=== PATIENT | male | born 1960 | race Caucasian/White ===

== ENCOUNTER 2019-09-24 10:32 | Inpatient (IN) ==
[2019-09-24 11:35] LABS: Appearance Urine Clear (Clear); Bilirubin Urine Negative (Negative); Blood Urine Negative (Negative); Color Urine Yellow; Glucose Urine UA Negative (Negative); Ketones Urine Negative (Negative); Leukocyte Esterase Urine Negative (Negative); Nitrite Urine Negative (Negative); Protein Urine Negative (Negative); Specific Gravity Urine 1.004 (1.000-1.030); Urobilinogen Urine Negative (Negative)
[2019-09-24 11:49] LABS: Amphetamines+Metham, Urine Neg (Neg); Barbiturates, Urine Neg (Neg); Benzodiazepine, Urine Neg (Neg); Cocaine, Urine Neg (Neg); MDMA (Ecstacy), Urine Neg (Neg); Methadone, Urine Neg (Neg); Opiate, Urine Neg (Neg); Phencyclidine, Urine Neg (Neg)
[2019-09-24 12:17] LABS: Basophils # (auto) 0.02 K/uL (0-0.2); Basophils % (auto) 0.4 %; Eosinophils # (auto) 0.07 K/uL (0-0.5); Eosinophils % (auto) 1.4 %; Hematocrit (blood only) 51.5 % (42-52); Immature Granulocytes # (auto) 0.01 K/uL (0.00-0.02); Immature Granulocytes % (auto) 0.2 %; Lymphocytes # (auto) 1.95 K/uL (1.2-3.4); Lymphocytes % (auto) 38.2 %; Mean Corpuscular Hemoglobin 33.5 pg (25-34); Mean Corpuscular Hgb Conc 36.9 g/dL (32-36); Mean Corpuscular Volume 90.7 fL (80-100); Mean Platelet Volume 10.2 fL (7.4-10.4); Monocytes % (auto) 7.8 %; Neutrophils # (auto) 2.65 K/uL (1.4-6.5); Platelet Count 200 K/uL (130-400); RDW Standard Deviation 39.8 fL (36.4-46.3); Red Blood Count 5.68 M/uL (4.7-6.1)
[2019-09-24 12:34] LABS: Albumin Level 4.3 gm/dl (3.4-5.0); Calcium 8.7 mg/dl (8.5-10.1); Creatinine Clr Calc Pharmacy 90.4 ml/min; Est GFR (African American) 94.6; Est GFR (Non-African American) 81.6; Magnesium 2.3 mg/dl (1.8-2.4); Potassium 3.3 mmol/L (3.5-5.1)
[2019-09-24 12:45] LABS: Acetaminophen < 2 ug/ml (10-30); Albumin Globulin Ratio 1.1 (0.9-2); Bilirubin,Total 0.8 mg/dl (0.2-1); Salicylate < 1.7 mg/dl (2.8-20); Thyroid Stimulating Hormone 1.1 uIu/ml (0.300-4.500); Total Protein 8.3 gm/dl (6.4-8.2)
[2019-09-24] MEDS ORDERED: ASPIRIN 81 MG CHEW PO STA (13:51)
[2019-09-24] MEDS ORDERED: POLYETHYLENE (MIRALAX) 17 GM PACK PO PRN (14:09)
[2019-09-24] MEDS ORDERED: ACETAMINOPHEN 325 MG TAB PO PRN (14:09)
[2019-09-24] MEDS ORDERED: ONDANSETRON INJ 2 MG/ML 2 ML VIAL IV PRN (14:09)
[2019-09-24] MEDS ORDERED: NITROGLYCERIN SL 0.4 MG/TAB TAB SL PRN (14:09)
--- NOTE | 2019-09-24 14:27 | History & Physical Report ---
Date of Service September 24, 2019 Assessment & Plan (1) Suicidal ideations: [address] with warrant, patient not allowed to leave facility. One to one obs with psych evaluation. Expressing active SI but no HI. (2) Elevated troponin: No chest pain but "malaise for several days" with lying around. Chao risk score is 1 for elevated troponin. Doubt NSTEMI but risk factors for CAD include active smoking, male sex. A1C screening for diabetes and lipid panel are pending. Outpatient record review reveals these have not been checked in the past. Echo, trend trop. Check CK with sedentary behavior as this may influence troponin. Add Lipitor and Metoprolol to ASA. Nitro/Morphine PRN. Consult cardiology for help with risk stratification. NPO pending next troponin value and clinical progress. (3) Alcohol intoxication: supportive care as needed. (4) Alcohol withdrawal: Some symptoms of withdrawal present now despite normal vitals, including a headache and anxiety with shakiness per patient. Gave ativan 2mg IV now in ER. Cont with CIWA. Gabapentin protocol also ordered, in addition to Banana bag, daily thiamine and daily folate. Heavy alcohol abuse. Would be helpful to assist patient with finding a support group to help him quit and stay sober at time of discharge. Strongly advised to avoid alcohol moving forward as this is bad for his health. (5) Depression: Plan per psych (6) Smoker: Has his can of snuff with him. Refuses to relinquish this. Hold on ordering any nicotine replacement at this time. (7) Hypokalemia: replace with KCL now and repeat K with Mg in am. (8) GERD (gastroesophageal reflux disease): Cont PPI while admitted. (9) DVT prophylaxis: Lovenox Full Code Dispo-to [facility], with transition to for inpatient psychiatric care with active suicidal ideations. DO Omaira Weaver Hospitalist History of Present Illness Chief Complaint: suicidal intentions Primary Care Provider: NO PCP 58 yo male smoker who abuses alcohol presents with suicidal ideations. He reports specifically feeling malaise in the past several days. He denies chest pain, shortness of breath at rest or with exertion, nausea, vomiting, blood per rectum, changes in stools, fevers, chills, respiratory symptoms or other issues. He reports drinking heavily for a long period of time, specifically quantifies 12 beers daily, last drink this morning. States he feels slightly shaky and has a generalized headaches ;reports that he feels some withdrawal symptoms. Denies homicidal ideations, denies having a weapon on his person. Nurse reports he and his stuff has been searched. Pt reports depression and used to take Zoloft but "just quit." He denies current treatment for depression, and denies any specific triggers. Actively states that "I mylene I'm having a heart attack and it will just take me quickly." Reports the plan this morning was to use his gun (reports he carries only one), but he decided to call the ER for help instead. Lives in a home with multiple nonfamily roommates. Reports tobacco snuff/chew-1 can per couple days. Also smokes cigarettes on occasion. Reports feeling embarrassed for his actions this morning. Allergies Allergy/AdvReac Type Severity Reaction Status Date / Time No Known Allergies Allergy Verified 07/13/18 15:03 Home Medications Home Medications Medication Instructions Recorded Confirmed Type omeprazole 20 mg PO DAILY 09/24/19 09/24/19 History Past Med/Surg History Medical History Depression ETOH abuse GERD (gastroesophageal reflux disease) Smoker Suicidal thoughts (Acute) Surgical History No history of previous surgery Family History Father , age 70 from [place] Coronary heart disease Social History Preferred Language: Ivorian Communication Ability: Effective Business Relationship Manager Required: No Beliefs That Will Affect Care: None marital status: Current Living Situation: Alone Feels Safe at Home: Yes Smoking Status: Current every day smoker Tobacco Type: cigarettes and smokeless tobacco ; Second Hand Exposure: No ; Hx Alcohol Use: Yes Alcohol type: beer Hx Substance Use: No Review of Systems Review of Systems: At least ten systems were reviewed and negative except as indicated in HPI above. Physical Exam Physical Exam: CONSTITUTIONAL: WNWD, vitals as above, generally well- appearing but appears fidgety EYES: EOMI bilaterally, pupils are equal bilaterally, normal conjunctivae, no scleral icterus ENT: MMM RESPIRATORY: clear to auscultation bilaterally, no crackles, rales or wheezes, normal respiratory effort CARDIOVASCULAR: regular rate and rhythm, S1 and 2 heard without murmurs, gallops or rubs, no JVD, no peripheral edema GASTROINTESTINAL: normal bowel sounds, soft, nontender, nondistended MUSCULOSKELETAL: strength 5/5 throughout, head is normocephalic and atraumatic, neck supple, normal palpation of chest wall without tenderness SKIN: warm and dry NEUROLOGIC: CN 2-12 grossly intact, normal cognition, normal speech, no gross focal deficits. Starting to look hypervigilant/anxious. Consistently moving his hips around like he cannot get comfortable. PSYCHIATRIC: alert cooperative and oriented to person, place and time. Tearful, expressing remorse of events this am. Results & Data Vital Signs (Past 12 Hours) Vital Signs Temp Pulse Pulse Resp BP BP Pulse Ox 09/24/19 12:53 80 16 130/64 94 09/24/19 10:39 37.0 C 83 16 119/96 98 Laboratory Results Short CBC 09/24/19 Range/Units 11:56 WBC 5.10 (4.8-10.8) K/uL Hgb 19.0 H (14.0-18.0) g/dL Hct 51.5 (42-52) % Plt Count 200 (130-400) K/uL BMP 09/24/19 11:56 Sodium 137 Potassium 3.3 L Chloride 103 Carbon Dioxide 25 BUN 12 Creatinine 1.01 Glucose 113 H Calcium 8.7 Cardiac Enzymes 09/24/19 Range/Units 11:56 Troponin I 0.116 H* (0-0.045) ng/ml Liver Function 09/24/19 Range/Units 11:56 Total Bilirubin 0.8 (0.2-1) mg/dl AST 26 (15-37) U/L ALT 40 (12-78) U/L Alkaline Phosphatase 60 (45-117) U/L Albumin 4.3 (3.4-5.0) gm/dl Urine 09/24/19 Range/Units 11:01 Urine Color Yellow Urine Appearance Clear (Clear) Urine pH 6.0 (4.5-7.5) Ur Specific [place] 1.004 (1.000-1.030) Urine Protein Negative (Negative) Urine Glucose (UA) Negative (Negative) Medications Administered ASA 324mg one in ER Code Status & VTE Plan VTE Prophylaxis Plan VTE Prophylaxis will be ordered: Yes
[2019-09-24] MEDS ORDERED: LORazepam 2 MG/4 ML VIAL IV STA (14:48)
[2019-09-24] MEDS ORDERED: LORazepam 2 MG/4 ML VIAL IV PRN (16:11)
[2019-09-24] MEDS ORDERED: LORazepam 1 MG TAB PO PRN (16:11)
[2019-09-24] MEDS ORDERED: LORazepam 3 MG/6 ML VIAL IV PRN (16:11)
[2019-09-24] MEDS ORDERED: ATIVAN IV ALCOHOL WITHDRAWL IV PRN (16:11)
[2019-09-24] MEDS ORDERED: LORazepam 1 MG/2 ML VIAL IV PRN (16:11)
[2019-09-24] MEDS ORDERED: GABAPENTIN 1200MG ALCOHOL WITHDRAWAL LOAD PO STA (16:11)
--- NOTE | 2019-09-24 16:11 | Emergency Department Note ---
Entered by Pat Dugan acting as a scribe for Lio Dee M.D. History of Present Illness General Chief complaint: Mental Health Evaluation Time Seen by Provider: 09/24/19 11:03 Source: patient History of Present Illness Onset (ago): day(s) 4 Location: head (depression) Severity: similar to prior episodes Pain Consistency: + other (worsening) Maximum Pain Intensity: 7 Quality: + other (depression) Exacerbated By: + other (family issues) Associated symptoms: + other (SI, depression, back pain) Treatments prior to arrival: none The patient is a 58 year old male presenting to the Emergency Department complaining of worsening depression starting 4 days ago. The patient reports that he has depression and that it has worsened in the past few days. He states that he wants to hurt himself and states that it would be best if he wasnt here. He explains that he has not spoken to his family for five years because of a falling out and that this is worsening his depression. He notes that he doesnt know how to fix the problems with his family and that this is upsetting him. He adds that he has been drinking alcohol for the past 4 days. The patient reports that he has a gun and thought about using it to kill himself which is why he came to the ED today. He states that he thinks he has a cold. He explains that his back hurts but that this is an ongoing problem. He notes that he has been a patient at the [facility] before. He adds that he doesnt have a therapist or counselor that he sees for his depression and doesnt take any psychiatric m edications. The patient reports that he uses smokeless tobacco but doesn't smoke cigarettes. Home Medications Home Medications Medication Instructions Recorded Confirmed Type omeprazole 20 mg PO DAILY 09/24/19 09/24/19 History Allergies Allergy/AdvReac Type Severity Reaction Status Date / Time No Known Allergies Allergy Verified 07/13/18 15:03 Past Med/Surg History Medical History Depression ETOH abuse GERD (gastroesophageal reflux disease) Smoker Suicidal thoughts (Acute) Surgical History No history of previous surgery Family History Father , age 70 from [place] Coronary heart disease Social History Preferred Language: Lithuanian Communication Ability: Effective Saloonkeeper Required: No Beliefs That Will Affect Care: None marital status: Current Living Situation: Alone Feels Safe at Home: Yes Smoking Status: Current every day smoker Tobacco Type: cigarettes and smokeless tobacco ; Second Hand Exposure: No ; Hx Alcohol Use: Yes Alcohol type: beer Hx Substance Use: No Review of Systems See HPI for pertinent positives & negatives. and A total of 10 systems reviewed and were otherwise negative Physical Exam Vital Signs Vital Signs - 24 hr 09/24/19 10:39 09/24/19 12:53 Temperature 37.0 C Temperature Source Oral Pulse Rate 83 Pulse Rate [Apical] 80 Pulse Rhythm Regular Pulse Strength Normal Respiratory Rate 16 16 Respiratory Effort / Characteristics Non-Labored Spontaneous Respiratory Depth Normal Respiratory Pattern Regular Blood Pressure 119/96 Blood Pressure [Left Arm] 130/64 Blood Pressure Mean 103 Blood Pressure Mean [Left Arm] 86 Blood Pressure Position Lying Pulse Oximetry 98 94 Oxygen Delivery Method Room Air Sepsis Recent Fever Within 48 Hours No Sepsis New/Unexplained Change in Mental Status No Sepsis Action Taken by Nursing No Action Required GENERAL: Patient is tearful, anxious. Smells of alcohol. Awake and alert. HENT: Normocephalic, atraumatic. EYES: Normal conjunctiva. Sclera non-icteric. NECK: Supple. No nuchal rigidity. RESPIRATORY: Clear to auscultation. No wheezes. Normal respiratory effort. CARDIAC: Normal rate. Normal rhythm. Extremities warm and well perfused. GI: Soft, non-distended. No tenderness to palpation. RECTAL: Deferred. MUSCULOSKELETAL: Atraumatic. Chest examination reveals no tenderness. LOWER EXTREMITIES: Calves are equal size bilaterally and non-tender. No edema NEURO: Normal sensorium. No sensory or motor deficits noted. No facial droop. PSYCH: Endorses SI. Denies HI. Tearful. SKIN: Warm and dry. No jaundice noted. Course Course 1106: The patient was evaluated in room A5, and a complete history and physical examination were performed. 1342: I discussed the case with Claudia Virgen PA-C. Dr. Rayo [facility] hospitalist will evaluated the patient for further management. 1245: I updated the patient at this time. Administered Medications Discontinued Medications Aspirin (Aspirin Chew) 324 mg PO NOW STA Stop: 09/24/19 13:52 Last Admin: 09/24/19 14:00 Dose: 324 mg Documented by: [id number] Lorazepam (Ativan) 2 mg in 4 mls @ 4 mls/min IV NOW STA Stop: 09/24/19 14:49 Last Admin: 09/24/19 15:07 Dose: 4 mls/min Documented by: [id number] Critical Care Time Critical Care Time: Yes Total Critical Care Time: 32 I have personally spent 32 minutes of critical care time in the direct management of this patient. This includes bedside care, interpretation of diagnostic studies, and testing, discussion with consultants, patient, and family members, and other required patient management activities. This 32 minutes is in excess of all separately billable procedures. Medical Decision Making Differential Diagnosis Differential diagnoses considered include mood disorder, infection, hypoglycemia, electrolyte abnormalities, cardiac sources, intracerebral event, toxicologic, neurologic, as well as others. Medical Records Attestation: I reviewed the patient's medical records. Home Medications Current Medication List: was personally reviewed by me Laboratory Data Attestation: I reviewed the patient's lab results. Result diagrams: 09/24/19 11:56 09/24/19 11:56 Lab Results 09/24/19 09/24/19 09/24/19 Range/Units 11:01 11:01 11:56 WBC 5.10 (4.8-10.8) K/uL RBC 5.68 (4.7-6.1) M/uL Hgb 19.0 H (14.0-18.0) g/dL Hct 51.5 (42-52) % MCV 90.7 (80-100) fL MCH 33.5 (25-34) pg MCHC 36.9 H (32-36) g/dL RDW Std Deviation 39.8 (36.4-46.3) fL RDW Coeff of Eloy 12.0 (11.5-14.5) % Plt Count 200 (130-400) K/uL MPV 10.2 (7.4-10.4) fL Immature Gran % (Auto) 0.2 % Neut % (Auto) 52.0 % Lymph % (Auto) 38.2 % Clare % (Auto) 7.8 % Eos % (Auto) 1.4 % Baso % (Auto) 0.4 % Immature Gran # (Auto) 0.01 (0.00-0.02) K/uL Neut # (Auto) 2.65 (1.4-6.5) K/uL Lymph # (Auto) 1.95 (1.2-3.4) K/uL Clare # (Auto) 0.40 (0.11-0.59) K/uL Eos # (Auto) 0.07 (0-0.5) K/uL Baso # (Auto) 0.02 (0-0.2) K/uL Sodium (136-145) mmol/L Potassium (3.5-5.1) mmol/L Chloride (98-107) mmol/L Carbon Dioxide (21-32) mmol/L Anion Gap (3-11) BUN (7-18) mg/dl Creatinine (0.6-1.4) mg/dl Est Cr Clr Drug Dosing ml/min Est GFR ( Amer) Est GFR (Non-Af Amer) BUN/Creatinine Ratio (10-20) Glucose (70-99) mg/dl Calcium (8.5-10.1) mg/dl Magnesium (1.8-2.4) mg/dl Total Bilirubin (0.2-1) mg/dl AST (15-37) U/L ALT (12-78) U/L Alkaline Phosphatase (45-117) U/L Total Creatine Kinase (39-308) U/L Troponin I (0-0.045) ng/ml Total Protein (6.4-8.2) gm/dl Albumin (3.4-5.0) gm/dl Globulin (2.5-4.0) gm/dl Albumin/Globulin Ratio (0.9-2) Lipase (73-393) U/L TSH (0.300-4.500) uIu/ml Urine Color Yellow Urine Appearance Clear (Clear) Urine pH 6.0 (4.5-7.5) Ur Specific [place] 1.004 (1.000-1.030) Urine Protein Negative (Negative) Urine Glucose (UA) Negative (Negative) Urine Ketones Negative (Negative) Urine Blood Negative (Negative) Urine Nitrite Negative (Negative) Urine Bilirubin Negative (Negative) Urine Urobilinogen Negative (Negative) Ur Leukocyte Esterase Negative (Negative) Salicylates (2.8-20) mg/dl Urine Opiates Screen Neg (Neg) Ur Methadone, Qual Neg (Neg) Acetaminophen (10-30) ug/ml Urine Barbiturates Neg (Neg) Ur Phencyclidine (PCP) Neg (Neg) U Amphetamin/Meth Scrn Neg (Neg) MDMA (Ecstasy) Screen Neg (Neg) U Benzodiazepines Scrn Neg (Neg) Ur Cocaine Metabolite Neg (Neg) U Marijuana (THC) Screen Neg (Neg) Ethyl Alcohol mg/dL (0-3) mg/dl 09/24/19 09/24/19 09/24/19 Range/Units 11:56 11:56 11:56 WBC (4.8-10.8) K/uL RBC (4.7-6.1) M/uL Hgb (14.0-18.0) g/dL Hct (42-52) % MCV (80-100) fL MCH (25-34) pg MCHC (32-36) g/dL RDW Std Deviation (36.4-46.3) fL RDW Coeff of Eloy (11.5-14.5) % Plt Count (130-400) K/uL MPV (7.4-10.4) fL Immature Gran % (Auto) % Neut % (Auto) % Lymph % (Auto) % Clare % (Auto) % Eos % (Auto) % Baso % (Auto) % Immature Gran # (Auto) (0.00-0.02) K/uL Neut # (Auto) (1.4-6.5) K/uL Lymph # (Auto) (1.2-3.4) K/uL Clare # (Auto) (0.11-0.59) K/uL Eos # (Auto) (0-0.5) K/uL Baso # (Auto) (0-0.2) K/uL Sodium 137 (136-145) mmol/L Potassium 3.3 L (3.5-5.1) mmol/L Chloride 103 (98-107) mmol/L Carbon Dioxide 25 (21-32) mmol/L Anion Gap 9.0 (3-11) BUN 12 (7-18) mg/dl Creatinine 1.01 (0.6-1.4) mg/dl Est Cr Clr Drug Dosing 90.4 ml/min Est GFR ( Amer) 94.6 Est GFR (Non-Af Amer) 81.6 BUN/Creatinine Ratio 12.0 (10-20) Glucose 113 H (70-99) mg/dl Calcium 8.7 (8.5-10.1) mg/dl Magnesium 2.3 (1.8-2.4) mg/dl Total Bilirubin 0.8 (0.2-1) mg/dl AST 26 (15-37) U/L ALT 40 (12-78) U/L Alkaline Phosphatase 60 (45-117) U/L Total Creatine Kinase (39-308) U/L Troponin I (0-0.045) ng/ml Total Protein 8.3 H (6.4-8.2) gm/dl Albumin 4.3 (3.4-5.0) gm/dl Globulin 4.0 (2.5-4.0) gm/dl Albumin/Globulin Ratio 1.1 (0.9-2) Lipase 226 (73-393) U/L TSH 1.100 (0.300-4.500) uIu/ml Urine Color Urine Appearance (Clear) Urine pH (4.5-7.5) Ur Specific [place] (1.000-1.030) Urine Protein (Negative) Urine Glucose (UA) (Negative) Urine Ketones (Negative) Urine Blood (Negative) Urine Nitrite (Negative) Urine Bilirubin (Negative) Urine Urobilinogen (Negative) Ur Leukocyte Esterase (Negative) Salicylates < 1.7 L (2.8-20) mg/dl Urine Opiates Screen (Neg) Ur Methadone, Qual (Neg) Acetaminophen < 2 L (10-30) ug/ml Urine Barbiturates (Neg) Ur Phencyclidine (PCP) (Neg) U Amphetamin/Meth Scrn (Neg) MDMA (Ecstasy) Screen (Neg) U Benzodiazepines Scrn (Neg) Ur Cocaine Metabolite (Neg) U Marijuana (THC) Screen (Neg) Ethyl Alcohol mg/dL 186.0 H (0-3) mg/dl 09/24/19 09/24/19 Range/Units 11:56 11:56 WBC (4.8-10.8) K/uL RBC (4.7-6.1) M/uL Hgb (14.0-18.0) g/dL Hct (42-52) % MCV (80-100) fL MCH (25-34) pg MCHC (32-36) g/dL RDW Std Deviation (36.4-46.3) fL RDW Coeff of Eloy (11.5-14.5) % Plt Count (130-400) K/uL MPV (7.4-10.4) fL Immature Gran % (Auto) % Neut % (Auto) % Lymph % (Auto) % Clare % (Auto) % Eos % (Auto) % Baso % (Auto) % Immature Gran # (Auto) (0.00-0.02) K/uL Neut # (Auto) (1.4-6.5) K/uL Lymph # (Auto) (1.2-3.4) K/uL Clare # (Auto) (0.11-0.59) K/uL Eos # (Auto) (0-0.5) K/uL Baso # (Auto) (0-0.2) K/uL Sodium (136-145) mmol/L Potassium (3.5-5.1) mmol/L Chloride (98-107) mmol/L Carbon Dioxide (21-32) mmol/L Anion Gap (3-11) BUN (7-18) mg/dl Creatinine (0.6-1.4) mg/dl Est Cr Clr Drug Dosing ml/min Est GFR ( Amer) Est GFR (Non-Af Amer) BUN/Creatinine Ratio (10-20) Glucose (70-99) mg/dl Calcium (8.5-10.1) mg/dl Magnesium (1.8-2.4) mg/dl Total Bilirubin (0.2-1) mg/dl AST (15-37) U/L ALT (12-78) U/L Alkaline Phosphatase (45-117) U/L Total Creatine Kinase 214 (39-308) U/L Troponin I 0.116 H* (0-0.045) ng/ml Total Protein (6.4-8.2) gm/dl Albumin (3.4-5.0) gm/dl Globulin (2.5-4.0) gm/dl Albumin/Globulin Ratio (0.9-2) Lipase (73-393) U/L TSH (0.300-4.500) uIu/ml Urine Color Urine Appearance (Clear) Urine pH (4.5-7.5) Ur Specific [place] (1.000-1.030) Urine Protein (Negative) Urine Glucose (UA) (Negative) Urine Ketones (Negative) Urine Blood (Negative) Urine Nitrite (Negative) Urine Bilirubin (Negative) Urine Urobilinogen (Negative) Ur Leukocyte Esterase (Negative) Salicylates (2.8-20) mg/dl Urine Opiates Screen (Neg) Ur Methadone, Qual (Neg) Acetaminophen (10-30) ug/ml Urine Barbiturates (Neg) Ur Phencyclidine (PCP) (Neg) U Amphetamin/Meth Scrn (Neg) MDMA (Ecstasy) Screen (Neg) U Benzodiazepines Scrn (Neg) Ur Cocaine Metabolite (Neg) U Marijuana (THC) Screen (Neg) Ethyl Alcohol mg/dL (0-3) mg/dl ECG Data Attestation: I personally reviewed and interpreted this ECG as follows: Indication: + toxicologic Rate (beats per minute): 78 Rhythm: + normal sinus ECG ST segments: no ST depression ECG Findings: + Other (Normal QTC.); no PVCs Blood Pressure Blood Pressure Findings: Elevated blood pressure Blood Pressure Disposition: further management by hospitalist JAVIER Joseph Patient is a 58-year-old gentleman presenting here with police for mental health evaluation. Evidently had increasing thoughts of suicidal tendencies and is quite tearful. Patient states he was thinking of using a gun and shooting himself in the head. Patient endorses drinking alcohol recently and has a history of alcoholism. Denies any HI. Complains of slight cough and baseline lower back pain. Benign abdomen. States he feels just generally unwell. Is here in a 302 warrant. States a history of some mental health issues in the past previously seen at the [facility]. Patient denies any trauma. Tearful but appears intoxicated upon his exam. Patient had basic medical clearance completed here with laboratory studies and EKG. Patient has a elevated alcohol level. EKG with some subtle changes but patient without acute complaint of chest pain. Again complained of some mild diffuse nonspecific fatigue and weak ness. Troponin was elevated. No priors noted. Concerned this could represent possible NSTEMI versus cardiomyopathy with alcohol history versus other pathology. Given an aspirin here. Will require medical admission for further cardiac evaluation. Still on a 302 require sitter at this point. Hospitalist advised. Patient in agreement. Impression & Plan Suicidal thoughts, Alcohol intoxication, Elevated troponin Discharge Plan Visit Data *Final* Discharge Date/Time: 09/24/19 14:53 Chief Complaint: Mental Health Evaluation ED Provider: Lio Dee Discharge Problem: Suicidal thoughts, Alcohol intoxication, Elevated troponin Patient Disposition: Admitted As Inpatient Discharge Instructions Interventions: ED Discharge Assessment Last Done: 09/24/19 14:53 Discharge Problem: Alcohol intoxication Qualifiers: Complication of substance-induced condition: with unspecified complication Qualified Code(s): F10.929 - Alcohol use, unspecified with intoxication, unspecified The scribe's documentation has been prepared under my direction and personally reviewed by me in its entirety. I confirm that the note above accurately reflects all work, treatment, procedures, and medical decision making performed by me.
--- NOTE | 2019-09-24 16:22 | XRay Report ---
XR chest 1V portable CLINICAL HISTORY: 58 years-old Male presenting with elevated troponin, alcohol intoxication. TECHNIQUE: Portable upright AP view of the chest was obtained. COMPARISON: None. FINDINGS: Cardiomediastinal silhouette normal. No focal opacity. No large effusion or pneumothorax. Multiple ol d posterior right rib fractures. Upper abdomen normal. IMPRESSION: 1. No acute cardiopulmonary disease. Electronically signed by: Stefano Cantu M.D. 09/24/2019 4:21 PM
[2019-09-24] MEDS ORDERED: GABAPENTIN 600 MG TAB PO ONE (16:45)
[2019-09-24] MEDS ORDERED: MULTI-VITAMIN INFUSION 10 ML, THIAMINE HCL 100 MG, FOLIC ACID 1 MG in SODIUM CHLORIDE 0... IV ONE (16:45)
[2019-09-24] MEDS ORDERED: POTASSIUM CHLORIDE 20 MEQ TABCR PO ONE (16:45)
[2019-09-24] MEDS: ATORVASTATIN 40 MG TAB PO SCH (17:43)
[2019-09-24] MEDS: ENOXAPARIN INJ 40 MG/0.4 ML SYR SQ SCH (20:57)
[2019-09-24] MEDS: METOPROLOL TARTRATE 25 MG TAB PO SCH (20:57)
[2019-09-24] MEDS: NICOTINE 21 MG/24 HR TDSY TD SCH (21:00)
[2019-09-25] MEDS: GABAPENTIN 600 MG TAB PO SCH ×4 (00:06→20:40)
[2019-09-25 01:30] LABS: Amphetamines+Metham, Urine Neg (Neg); Barbiturates, Urine Neg (Neg); Benzodiazepine, Urine Neg (Neg); Cocaine, Urine Neg (Neg); MDMA (Ecstacy), Urine Neg (Neg); Methadone, Urine Neg (Neg); Opiate, Urine Neg (Neg); Phencyclidine, Urine Neg (Neg)
[2019-09-25 07:13] LABS: Hematocrit (blood only) 49.5 % (42-52); Hemoglobin 17.7 g/dL (14.0-18.0); Mean Corpuscular Hemoglobin 33.5 pg (25-34); Mean Corpuscular Hgb Conc 35.8 g/dL (32-36); Mean Corpuscular Volume 93.8 fL (80-100); Mean Platelet Volume 10.4 fL (7.4-10.4); Platelet Count 187 K/uL (130-400); RDW Standard Deviation 40.7 fL (36.4-46.3); Red Blood Count 5.28 M/uL (4.7-6.1); White Blood Count 6.05 K/uL (4.8-10.8)
[2019-09-25] MEDS: FOLIC ACID 1 MG TAB PO SCH (08:24)
[2019-09-25] MEDS: ATORVASTATIN 40 MG TAB PO SCH (08:24)
[2019-09-25] MEDS: ASPIRIN 81 MG ECTAB PO SCH (08:24)
[2019-09-25] MEDS: PANTOprazole 40 MG TAB PO SCH (08:25)
[2019-09-25] MEDS: METOPROLOL TARTRATE 25 MG TAB PO SCH ×3 (08:25→20:41)
[2019-09-25] MEDS: NICOTINE 21 MG/24 HR TDSY TD SCH (08:25)
[2019-09-25] MEDS: THIAMINE HCL 100 MG TAB PO SCH (08:25)
[2019-09-25 08:31] LABS: Estimated Average Glucose 117 mg/dl; Hemoglobin A1C 5.7 % (4.5-5.6)
--- NOTE | 2019-09-25 08:33 | Hospitalist Progress Note ---
Date of Service September 25, 2019 Assessment & Plan (1) Suicidal ideations: -[address] with warrant, patient not allowed to leave facility. One to one obs with psych evaluation. Expressing active Suicidal Ideations as per admitting hospital physician -09/25/19 Patient seen and examined this AM. Eating the breakfast. appears comfortable and no acute distress. patient speaking well and answers questions appropriately. patient has 1 to 1 nursing director sitting on the chair next to him. Patient currently denies any pain to any part of the body. Breathing on room air. Patient's history is somewhat nonspecific in regards to symptoms prior to admission and could said that before he had hurt all over. No fevers recorded in the hospital but patient thought he was having some illness before coming to hospital. Patient does not appear to have any hand tremors or tongues fasiculations. He reports 10 to 12 beers at home which he lives with roommates. He reports he has had history of alcohol withdrawal before 1 year ago. He declines nicotine patch. Patient reports of depression when asked. He denies that he ever though of hurting other people. When asked whether he had suicidal ideations, patient reports he has thought about it but he has not thought of plans to do this -awaiting behavioral health/psychiatry evaluation (2) Depression: -awaiting behavioral health/psychiatry evaluation (3) Elevated troponin: -No chest pain but "malaise for several days" with lying around -creatinine kinase is normal as 214 on admission -troponins elevated on admission as 0.116, and mildly uptrending 0.126, 0.130, continue to trend -echocardiogram 09/24/19: with normal ejection fraction of 60 to 65% with no wall motion abnormality, there is moderate concentric left ventricular hypertrophy -continue hospital initiated atorvastatin and metoprolol -cardiology requested by admitting hospitalist (4) Alcohol intoxication: -concern for symptoms from alcohol intoxication on admission -supportive care as needed -currently no alcohol intoxication (5) Alcohol withdrawal: -as per initial hospitalist admission evaluation that patient had some symptoms of withdrawal present now despite normal vitals, including a headache and anxiety with shakiness per patient; patient given Ativan in the ER. also given thiamine and folic acid and banana bag -continue gabapentin alcohol withdrawal protocol, folic acid, thiamine, ativan prn (6) Smoker: Tobacco use -patient reports he uses tobacco generally as snuff -declines nicotine patch (7) Hypokalemia: -admission serum potassium 3.3, patient received potassium supplements -trend levels and replete to goal of 3.5 to 4 (8) GERD (gastroesophageal reflux disease): Cont PPI while admitted. (9) DVT prophylaxis: Lovenox Full Code Subjective Patient seen and examined this AM. Eating the breakfast. appears comfortable and no acute distress. patient speaking well and answers questions appropriately. patient has 1 to 1 nursing director sitting on the chair next to him. Patient currently denies any pain to any part of the body. Breathing on room air. Patient's history is somewhat nonspecific in regards to symptoms prior to admission and could said that before he had hurt all over. No fevers recorded in the hospital but patient thought he was having some illness before coming to hospital. Patient does not appear to have any hand tremors or tongues fasiculations. He reports 10 to 12 beers at home which he lives with roommates. He reports he has had history of alcohol withdrawal before 1 year ago. He declines nicotine patch. Patient reports of depression when asked. He denies that he ever though of hurting other people. When asked whether he had suicidal ideations, patient reports he has thought about it but he has not thought of plans to do this Review of Systems Review of Systems: All systems reviewed & are unremarkable except as noted in HPI & below Physical Exam Constitutional: WD/WN, vitals as above Eyes: PERRL, conjunctivae normal, anicteric sclerae EOM intact bilaterally ENMT: external ear and nose normal, oropharynx normal Neck: normal visual inspection Respiratory: normal respiratory effort, lungs clear to auscultation Cardiovascular: RRR, no murmur, no edema Gastrointestinal (Abdomen): normal bowel sounds, soft, nontender, no hepatosplenomegaly Musculoskeletal: Head/Neck/Chest: normocephalic and head atraumatic Neurologic: PERRL, EOMI, accommodation nl, no face palsy, no dysarthria CN's II-XI intact bilaterally Psychiatric: A+Ox3, euthymic affect Results & Data Vital Signs (Past 12 Hours) Vital Signs Temp Pulse Pulse Resp BP Pulse Ox 09/25/19 07:00 36.7 C 61 20 145/78 H 94 09/25/19 04:25 36.6 C 66 18 147/79 H 95 09/25/19 00:14 71 12/16/19 21:22 92 H
[2019-09-25 09:13] LABS: Albumin Level 4.1 gm/dl (3.4-5.0); BUN Creatinine Ratio 12.6 (10-20); Calcium 8.7 mg/dl (8.5-10.1); Creatinine Clr Calc Pharmacy 75.4 ml/min; Est GFR (Non-African American) 65.6; Magnesium 2.2 mg/dl (1.8-2.4); Potassium 3.6 mmol/L (3.5-5.1)
[2019-09-25 09:20] LABS: Albumin Globulin Ratio 1.1 (0.9-2); Bilirubin,Total 1.3 mg/dl (0.2-1); Globulin 3.6 gm/dl (2.5-4.0); Phosphorus 2.4 mg/dl (2.5-4.9); Total Protein 7.7 gm/dl (6.4-8.2); Troponin I 0.133 ng/ml (0-0.045)
[2019-09-25] MEDS ORDERED: LIDOCAINE 5% 1 PATCH TD SCH (10:15)
--- NOTE | 2019-09-25 10:51 | Cardiology Consultation ---
Date of Consultation September 25, 2019 Assessment & Plan (1) Troponin I above reference range: Troponin level was drawn in the emergency department despite the patient not voicing any cardiac complaints. This level does not represent an ischemic event. His echocardiogram shows normal wall motion and again he is without cardiac complaint. The patient himself voices his desire not to undergo any further cardiac testing at this time and I agree that no further testing is necessary. I would recommend follow-up with his primary care provider as an outpatient. No cardiac follow-up is recommended at this time. Obviously no medications will be started from my standpoint. (2) Suicidal thoughts: (3) ETOH abuse: History of Present Illness Reason for Consultation: Troponin level above reference range Requesting Physician: Dr. Rayo Attending Physician: Tez Espinal MD History of Present Illness It was my pleasure to see Mr. Davalos in consultation today September 25, 2019. He is a very pleasant 58-year-old gentleman who presented to [facility] emergency department on 09/24/2019 expressing significant depression along with suicidal ideation. Physically he was without complaint except for ongoing chronic back pain that had not changed in nature and some malaise that was associated with a depression. He specifically denied experiencing any chest pain, shortness of breath, palpitations, lightheadedness, dizziness or syncope. A troponin level was drawn in the emergency department despite his lack of cardiac symptoms and he came back elevated and cardiology was consulted. Currently states that he is feeling better. And continues to remain symptom- free from a cardiac standpoint. He denies ever being evaluated by cardiology before nor is he had any previous cardiac testing. He also voices his desire not to undergo any further testing. Allergies Allergy/AdvReac Type Severity Reaction Status Date / Time No Known Allergies Allergy Verified 07/13/18 15:03 Home Medications Home Medications Medication Instructions Recorded Confirmed Type omeprazole 20 mg PO DAILY 09/24/19 09/24/19 History Patient History Medical History Depression ETOH abuse GERD (gastroesophageal reflux disease) Smoker Suicidal thoughts (Acute) Surgical History No history of previous surgery Family History Father , age 70 from [place] Coronary heart disease Social History Preferred Language: Polish Communication Ability: Effective Operations Management Trainee Required: No Beliefs That Will Affect Care: None marital status: Current Living Situation: Other Current Living Situation Comment: Lives with several other men in same house Other Information That Helps Us Care for You: No Feels Safe at Home: Yes Safety Concerns: Feels Safe At This Time Smoking Status: Smoker, status unknown Hx Alcohol Use: Yes Alcohol type: beer Hx Substance Use: No Review of Systems Review of Systems: All systems reviewed & are unremarkable except as noted in HPI & below Physical Exam Physical Exam: Physical Exam: General: Awake, alert and oriented x 3. No acute distress. HEENT: Normocephalic, atraumatic. Pupils equal, round and reactive to light and accommodation. Extraocular muscles are intact. Anicteric sclera. Moist mucous membranes. Neck: No JVD. No bruit. Cardiovascular: Regular. No S-4. Normal S-1 and S-2. No S-3. No murmurs, rubs or gallops. Pulmonary: Clear to auscultation bilaterally. No rales, rhonchi, or wheezing. Abdomen: Bowel sounds x 4, soft. No rebound, guarding or tenderness. No organomegaly. Extremities: No clubbing, cyanosis or edema. +2 pedal pulses bilaterally. Skin: Warm and dry. Results & Data Vital Signs (Past 12 Hours) Vital Signs Temp Pulse Pulse Resp BP Pulse Ox 09/25/19 07:00 36.7 C 61 20 145/78 H 94 09/25/19 04:25 36.6 C 66 18 147/79 H 95 09/25/19 00:14 71 Laboratory Results Laboratory Results - last 24 hr 09/24/19 09/24/19 09/24/19 11:01 11:01 11:56 WBC 5.10 RBC 5.68 Hgb 19.0 H Hct 51.5 MCV 90.7 MCH 33.5 MCHC 36.9 H RDW Std Deviation 39.8 RDW Coeff of Eloy 12.0 Plt Count 200 MPV 10.2 Immature Gran % (Auto) 0.2 Neut % (Auto) 52.0 Lymph % (Auto) 38.2 [place] % (Auto) 7.8 Eos % (Auto) 1.4 Baso % (Auto) 0.4 Immature Gran # (Auto) 0.01 Neut # (Auto) 2.65 Lymph # (Auto) 1.95 [place] # (Auto) 0.40 Eos # (Auto) 0.07 Baso # (Auto) 0.02 Sodium Potassium Chloride Carbon Dioxide Anion Gap BUN Creatinine Est Cr Clr Drug Dosing Est GFR ( Amer) Est GFR (Non-Af Amer) BUN/Creatinine Ratio Glucose Estimat Average Glucose Hemoglobin A1c Calcium Phosphorus Magnesium Total Bilirubin AST ALT Alkaline Phosphatase Total Creatine Kinase Troponin I Total Protein Albumin Globulin Albumin/Globulin Ratio Triglycerides Cholesterol LDL Cholesterol, Calc VLDL Cholesterol, Calc HDL Cholesterol Cholesterol/HDL Ratio Lipase Folate TSH Urine Color Yellow Urine Appearance Clear Urine pH 6.0 Ur Specific [place] 1.004 Urine Protein Negative Urine Glucose (UA) Negative Urine Ketones Negative Urine Blood Negative Urine Nitrite Negative Urine Bilirubin Negative Urine Urobilinogen Negative Ur Leukocyte Esterase Negative Salicylates Urine Opiates Screen Neg Ur Methadone, Qual Neg Acetaminophen Urine Barbiturates Neg Ur Phencyclidine (PCP) Neg U Amphetamin/Meth Scrn Neg MDMA (Ecstasy) Screen Neg U Benzodiazepines Scrn Neg Ur Cocaine Metabolite Neg U Marijuana (THC) Screen Neg Ethyl Alcohol mg/dL 09/24/19 09/24/19 09/24/19 11:56 11:56 11:56 WBC RBC Hgb Hct MCV MCH MCHC RDW Std Deviation RDW Coeff of Eloy Plt Count MPV Immature Gran % (Auto) Neut % (Auto) Lymph % (Auto) [place] % (Auto) Eos % (Auto) Baso % (Auto) Immature Gran # (Auto) Neut # (Auto) Lymph # (Auto) [place] # (Auto) Eos # (Auto) Baso # (Auto) Sodium 137 Potassium 3.3 L Chloride 103 Carbon Dioxide 25 Anion Gap 9.0 BUN 12 Creatinine 1.01 Est Cr Clr Drug Dosing 90.4 Est GFR ( Amer) 94.6 Est GFR (Non-Af Amer) 81.6 BUN/Creatinine Ratio 12.0 Glucose 113 H Estimat Average Glucose Hemoglobin A1c Calcium 8.7 Phosphorus Magnesium 2.3 Total Bilirubin 0.8 AST 26 ALT 40 Alkaline Phosphatase 60 Total Creatine Kinase Troponin I Total Protein 8.3 H Albumin 4.3 Globulin 4.0 Albumin/Globulin Ratio 1.1 Triglycerides Cholesterol LDL Cholesterol, Calc VLDL Cholesterol, Calc HDL Cholesterol Cholesterol/HDL Ratio Lipase 226 Folate TSH 1.100 Urine Color Urine Appearance Urine pH Ur Specific [place] Urine Protein Urine Glucose (UA) Urine Ketones Urine Blood Urine Nitrite Urine Bilirubin Urine Urobilinogen Ur Leukocyte Esterase Salicylates < 1.7 L Urine Opiates Screen Ur Methadone, Qual Acetaminophen < 2 L Urine Barbiturates Ur Phencyclidine (PCP) U Amphetamin/Meth Scrn MDMA (Ecstasy) Screen U Benzodiazepines Scrn Ur Cocaine Metabolite U Marijuana (THC) Screen Ethyl Alcohol mg/dL 186.0 H 09/24/19 09/24/19 09/24/19 11:56 11:56 16:23 WBC RBC Hgb Hct MCV MCH MCHC RDW Std Deviation RDW Coeff of Eloy Plt Count MPV Immature Gran % (Auto) Neut % (Auto) Lymph % (Auto) [place] % (Auto) Eos % (Auto) Baso % (Auto) Immature Gran # (Auto) Neut # (Auto) Lymph # (Auto) [place] # (Auto) Eos # (Auto) Baso # (Auto) Sodium Potassium Chloride Carbon Dioxide Anion Gap BUN Creatinine Est Cr Clr Drug Dosing Est GFR ( Amer) Est GFR (Non-Af Amer) BUN/Creatinine Ratio Glucose Estimat Average Glucose Hemoglobin A1c Calcium Phosphorus Magnesium Total Bilirubin AST ALT Alkaline Phosphatase Total Creatine Kinase 214 Troponin I 0.116 H* Total Protein Albumin Globulin Albumin/Globulin Ratio Triglycerides Cholesterol LDL Cholesterol, Calc VLDL Cholesterol, Calc HDL Cholesterol Cholesterol/HDL Ratio Lipase Folate 9.52 TSH Urine Color Urine Appearance Urine pH Ur Specific [place] Urine Protein Urine Glucose (UA) Urine Ketones Urine Blood Urine Nitrite Urine Bilirubin Urine Urobilinogen Ur Leukocyte Esterase Salicylates Urine Opiates Screen Ur Methadone, Qual Acetaminophen Urine Barbiturates Ur Phencyclidine (PCP) U Amphetamin/Meth Scrn MDMA (Ecstasy) Screen U Benzodiazepines Scrn Ur Cocaine Metabolite U Marijuana (THC) Screen Ethyl Alcohol mg/dL 09/24/19 09/25/19 09/25/19 18:08 00:14 00:45 WBC RBC Hgb Hct MCV MCH MCHC RDW Std Deviation RDW Coeff of Eloy Plt Count MPV Immature Gran % (Auto) Neut % (Auto) Lymph % (Auto) [place] % (Auto) Eos % (Auto) Baso % (Auto) Immature Gran # (Auto) Neut # (Auto) Lymph # (Auto) [place] # (Auto) Eos # (Auto) Baso # (Auto) Sodium Potassium Chloride Carbon Dioxide Anion Gap BUN Creatinine Est Cr Clr Drug Dosing Est GFR ( Amer) Est GFR (Non-Af Amer) BUN/Creatinine Ratio Glucose Estimat Average Glucose Hemoglobin A1c Calcium Phosphorus Magnesium Total Bilirubin AST ALT Alkaline Phosphatase Total Creatine Kinase Troponin I 0.126 H* 0.130 H* Total Protein Albumin Globulin Albumin/Globulin Ratio Triglycerides Cholesterol LDL Cholesterol, Calc VLDL Cholesterol, Calc HDL Cholesterol Cholesterol/HDL Ratio Lipase Folate TSH Urine Color Urine Appearance Urine pH Ur Specific [place] Urine Protein Urine Glucose (UA) Urine Ketones Urine Blood Urine Nitrite Urine Bilirubin Urine Urobilinogen Ur Leukocyte Esterase Salicylates Urine Opiates Screen Neg Ur Methadone, Qual Neg Acetaminophen Urine Barbiturates Neg Ur Phencyclidine (PCP) Neg U Amphetamin/Meth Scrn Neg MDMA (Ecstasy) Screen Neg U Benzodiazepines Scrn Neg Ur Cocaine Metabolite Neg U Marijuana (THC) Screen Neg Ethyl Alcohol mg/dL 09/25/19 09/25/19 09/25/19 06:26 06:26 06:26 WBC 6.05 RBC 5.28 Hgb 17.7 Hct 49.5 MCV 93.8 MCH 33.5 MCHC 35.8 RDW Std Deviation 40.7 RDW Coeff of Eloy 12.0 Plt Count 187 MPV 10.4 Immature Gran % (Auto) Neut % (Auto) Lymph % (Auto) [place] % (Auto) Eos % (Auto) Baso % (Auto) Immature Gran # (Auto) Neut # (Auto) Lymph # (Auto) [place] # (Auto) Eos # (Auto) Baso # (Auto) Sodium Cancelled Potassium Cancelled Chloride Cancelled Carbon Dioxide Cancelled Anion Gap Cancelled BUN Cancelled Creatinine Cancelled Est Cr Clr Drug Dosing Cancelled Est GFR ( Amer) Cancelled Est GFR (Non-Af Amer) Cancelled BUN/Creatinine Ratio Cancelled Glucose Cancelled Estimat Average Glucose 117 Hemoglobin A1c 5.7 H Calcium Cancelled Phosphorus Magnesium Cancelled Total Bilirubin AST ALT Alkaline Phosphatase Total Creatine Kinase Troponin I Total Protein Albumin Globulin Albumin/Globulin Ratio Triglycerides Cancelled Cholesterol Cancelled LDL Cholesterol, Calc Cancelled VLDL Cholesterol, Calc Cancelled HDL Cholesterol Cancelled Cholesterol/HDL Ratio Cancelled Lipase Folate TSH Urine Color Urine Appearance Urine pH Ur Specific [place] Urine Protein Urine Glucose (UA) Urine Ketones Urine Blood Urine Nitrite Urine Bilirubin Urine Urobilinogen Ur Leukocyte Esterase Salicylates Urine Opiates Screen Ur Methadone, Qual Acetaminophen Urine Barbiturates Ur Phencyclidine (PCP) U Amphetamin/Meth Scrn MDMA (Ecstasy) Screen U Benzodiazepines Scrn Ur Cocaine Metabolite U Marijuana (THC) Screen Ethyl Alcohol mg/dL 09/25/19 08:39 WBC RBC Hgb Hct MCV MCH MCHC RDW Std Deviation RDW Coeff of Eloy Plt Count MPV Immature Gran % (Auto) Neut % (Auto) Lymph % (Auto) [place] % (Auto) Eos % (Auto) Baso % (Auto) Immature Gran # (Auto) Neut # (Auto) Lymph # (Auto) [place] # (Auto) Eos # (Auto) Baso # (Auto) Sodium 138 Potassium 3.6 Chloride 105 Carbon Dioxide 27 Anion Gap 7.0 BUN 15 Creatinine 1.21 Est Cr Clr Drug Dosing 75.4 Est GFR ( Amer) 76.0 Est GFR (Non-Af Amer) 65.6 BUN/Creatinine Ratio 12.6 Glucose 150 H Estimat Average Glucose Hemoglobin A1c Calcium 8.7 Phosphorus 2.4 L Magnesium 2.2 Total Bilirubin 1.3 H D AST 25 ALT 37 Alkaline Phosphatase 63 Total Creatine Kinase Troponin I 0.133 H* Total Protein 7.7 Albumin 4.1 Globulin 3.6 Albumin/Globulin Ratio 1.1 Triglycerides 497 H Cholesterol 244 H LDL Cholesterol, Calc VLDL Cholesterol, Calc HDL Cholesterol 35 Cholesterol/HDL Ratio 7 Lipase Folate TSH Urine Color Urine Appearance Urine pH Ur Specific [place] Urine Protein Urine Glucose (UA) Urine Ketones Urine Blood Urine Nitrite Urine Bilirubin Urine Urobilinogen Ur Leukocyte Esterase Salicylates Urine Opiates Screen Ur Methadone, Qual Acetaminophen Urine Barbiturates Ur Phencyclidine (PCP) U Amphetamin/Meth Scrn MDMA (Ecstasy) Screen U Benzodiazepines Scrn Ur Cocaine Metabolite U Marijuana (THC) Screen Ethyl Alcohol mg/dL Medications Administered Current Inpatient Medications Acetaminophen (Tylenol) 650 mg PO Q4H PRN PRN Reason: Pain or Fever Stop: 10/24/19 14:08 Aspir[facility]) [facility] [place] Stop: 10/25/19 08:59 Last Admin: 09/25/19 08:24 Dose: 81 mg Documented by: Atorvastatin Calcium (Lipitor) [facility] [place] Stop: 10/24/19 16:44 Last Admin: 09/25/19 08:24 Dose: 80 mg Documented by: Enoxaparin Sodium (Lovenox) 40 mg SQ HS [facility] Stop: 10/24/19 20:59 Last Admin: 09/24/19 20:57 Dose: 40 mg Documented by: Folic Acid (Folvite) 1 mg PO QAM [facility] Stop: 10/25/19 08:59 Last Admin: 09/25/19 08:24 Dose: 1 mg Documented by: Gabapentin (Neurontin) 600 mg PO Q8H [facility] Stop: 09/26/19 06:01 Gabapentin (Neurontin) 600 mg PO Q12H [facility] Stop: 09/27/19 06:01 Gabapentin (Neurontin) 600 mg PO Q24H [facility] Stop: 09/28/19 06:01 Lorazepam (Ativan) 1 mg in 2 mls @ 2 mls/min IV UD PRN; Protocol PRN Reason: EtOH Withdrawl AWSS Score 6,7 Stop: 10/24/19 16:10 Lorazepam (Ativan) 2 mg in 4 mls @ 4 mls/min IV UD PRN; Protocol PRN Reason: EtOH Withdrawl AWSS Score 8,9 Stop: 10/24/19 16:10 Lorazepam (Ativan) 3 mg in 6 mls @ 4 mls/min IV ONCE PRN; Protocol PRN Reason: EtOH Withdrawl AWSS Score >=10 Stop: 10/24/19 16:10 Lidocaine (Lidoderm 5%) 1 patch TD [facility] Stop: 10/25/19 10:14 Metoprolol Tartrate (Lopressor) 25 mg PO TID [facility] Stop: 10/24/19 20:59 Last Admin: 09/25/19 08:25 Dose: 25 mg Documented by: Miscellaneous (Remove Nicoderm Patch) 1 ea N/A DAILY@0859 [facility] Stop: 10/25/19 08:58 Last Admin: 09/25/19 08:26 Dose: Not Given Documented by: Miscellaneous (Remove Lidoderm Patch) 1 ea N/A DAILY@2100 [facility] Stop: 10/25/19 20:59 Nicotine (Nicoderm Cq) 21 mg TD QAM [facility] Stop: 10/24/19 19:14 Last Admin: 09/25/19 08:25 Dose: Not Given Documented by: Nitroglycerin (Nitrostat) 0.4 mg SL UD PRN PRN Reason: Chest Pain Stop: 10/24/19 14:08 Ondansetron HCl (Zofran) 4 mg IV Q6H PRN PRN Reason: Nausea Stop: 10/24/19 14:08 Pantoprazole Sodium (Protonix) 40 mg PO DAILY [facility]; Protocol Stop: 10/25/19 08:59 Last Admin: 09/25/19 08:25 Dose: 40 mg Documented by: Polyethylene Glycol (Miralax Powder Packet) 17 gm PO DAILY PRN PRN Reason: Constipation Stop: 10/24/19 14:08 Thiamine HCl (Vitamin B-1) 100 mg PO QAM [facility] Stop: 10/25/19 08:59 Last Admin: 09/25/19 08:25 Dose: 100 mg Documented by:
--- NOTE | 2019-09-25 11:07 | Psychiatric Consultation ---
Date of Consultation September 25, 2019 Impression / Recommendations Impression 58-year-old male admitted medically on 09/24/19 after presenting to the ED via police for physical and mental health concerns. Pt had reported verbalized feeling physically unwell, but also thoughts end his life by shooting himself. Upon ED work-up, it was found that patient's troponin was elevated and further cardiac work-up was pursued. Psychiatric consultation was requested to evaluate patient for suicidal statements with a specific plan. Although patient is denying suicidal ideation and disputes reports made in prior documentation, the discrepancy between patient's reports and numerous instances of concerning documentation is highly concerning. What increases concern, is the fact that patient is unwilling to engage in alternative recommended treatment. He is refusing inpatient drug and alcohol rehabilitation, outpatient substance abuse treatment, referrals for therapy, and consideration of medications to assist with mood and anxiety. Patient is unable to verbalize supports that could verify he is safe for discharge, and seemingly is not able to understand that nothing will have been different from his initial presentation if he is discharged home without additional services. Also of concern, is the fact that patient has a rifle in his home which he is not allowing anyone to secure. Based on concerning statements documented in 302 petitioning statement as well as ED psychiatric case management notes, we are upholding recommendation the patient be referred for inpatient psychiatric treatment after he is medically cleared. Patient is on a 302 box B warrant at this time, and should not be permitted to leave the hospital AMA. At time of medical clearance, we will pursue commitment status and determine if a voluntary or involuntary psychiatric admission would be pursued. At this time, patient is declining need for inpatient psychiatric treatment, and it is quite possible a 302 commitment would be upheld. Would suggest ongoing medical treatment in the interim for possible alcohol withdrawal symptoms. Patient is at high risk for withdrawal based on his reports of drinking alcohol on a daily basis, by his reports up to 15 beers a day. We will continue to follow along with patient's case, encouraging primary team to reach out to our service with any additional questions or concerns. We appreciate the opportunity to participate in the care of this patient. Dr. Zulema Rodriges was directly involved in review and discussion of the patient's case and participated in medical decision making regarding treatment recommendations. Risk Factors Assessment Do You Have Access To A Gun?: Yes Psych History Identifying Data 58-year-old male admitted medically on 09/24/19 after presenting to the ED via police for a combination of physical and mental health complaints. It was reported that the patient had called the ED reporting suicidal ideation and thoughts to harm himself. He presented to the ED on a 302 Box B warrant, but was admitted medically due to work-up showing elevated troponin. Psychiatric consultation was requested to evaluate patient for suicidal ideation with specific plan. Chief Complaint "It's just, I was so sick for like a full three or four days. I don't know, it just was not getting better. I was probably drinking way to much too." History of Present Illness Shadi Davalos is a 58-year-old male admitted medically on 09/24/2019 after presenting to the ED via police transport. Patient had reportedly called the emergency department, inquiring if he was eligible for treatment even without insurance. Patient reportedly verbalized thoughts to harm himself, and admitted to having a loaded gun at his residence. Patient was ultimately willing to cooperate with ED psychiatric case management's to arrange a wellness check, and patient was brought to the hospital for mental health evaluation. During ED work-up, patient's troponin was found to be elevated and inpatient medical admission for further evaluation was pursued. Psychiatric consultation was requested to evaluate patient for suicidal ideation with specific plan. Pt was brought to the ED on a 302 Box B warrant, with petitioning statement completed by officer Jaclyn Loredo, it reads: "Shadi Davalos called [facility] stating his intent to commit suicide. I arrived and found Israeli intoxicated and crying. Israeli stated to me that he had a loaded 22 rifle. Israeli said he had considered putting the barrel to the side of his head and pulling the trigger. Israeli stated several times that he wished he had the courage to end it. Israeli claimed he has been drinking since . Israeli has had no contact with his family in approx. 5 years." Patient's case was reviewed during morning report with supervising psychiatrist and psychiatric nurse liaison. Patient was cooperative with psychiatric evaluation. Patient's reports of the situation are rather different, he states that he had been physically ill for about 3 to 4 days, and was overwhelmed with concern for physical symptoms. He reports realization that ongoing alcohol use likely did not help his physical presentation. He informs this provider that he "started getting goofy feelings and called up here [hospital/ED]. I guess I implied I did not care if I was around anymore." Patient does verify in a roundabout way that "goofy feelings" does not imply apathy regarding continuing to live. He states "I guess sometimes I have those thoughts, like it is just as easy to not be around, or I just do not care." The patient does admit to bertin goldman "depressing things for sure" over the last 5 to 6 years. 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 Patient states that he has been in the past, and has several children to 2 prior marriages. He denies contact with any family members at this time. Contradictory to reports patient apparently made to police and ED psychiatric leather case finisher, the patient informs this provider "I did not really dwell on it, I am never going to do that. I have known people who have killed themselves, it is not what I want." When asked questions in order to determine if safety planning would be appropriate, the patient is unable to verbalize any supports that could be contacted to verify limited safety concerns. When asked about coping strategies, the patient states that he is mostly independent and isolative. He does state that he would consider going to tenriism and exercising. Patient was informed of recommendation for inpatient drug and alcohol rehabilitation, as he reports continued use of excessive amounts of alcohol "7 days a week." Patient states that he is not interested in rehab referrals, and is not willing to pursue outpatient drug and alcohol treatment either. Patient also declines recommendation for outpatient therapy, and is not willing to consider psychiatric medications to target worsening anxiety and depression. Patient contradicts himself on several occasions, initially reporting increase in depression and anxiety, then later stating that things are "fine" and he does not require any assistance from our service. Patient does state that he had previously been prescribed sertraline, which was rather helpful when he was taking it. Again, he is declining to resume the medication or consider alternative options. The patient does report decreased energy and motivation over the past year. He verbalizes apathy on several occasions, stating "I just do not care." Patient does report history of treatment for alcohol abuse. He believes he has been to rehab 8 or 9 times, most recently in 09/2018 at [facility]. The patient states on most occasions he finishes the program, "I get the certificate and then throw it in the trash." The patient believes that his alcohol habits have changed, and reports feeling comfortable with the amount he consumes. Patient states "I drink because I like beer, not because I have a problem anymore." The patient does admit to consuming 12-15 beers on a day in which he is not working, and at least 4-5 beers after work. He states that his first drink is generally about 6 hours after he awakes at 4 AM, putting his first drink around 10:00 in the morning. 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 Patient did verbalize consideration to attend outpatient AA/recovery groups, as they are "free." Patient was informed that the [facility] service unit may be able to offer with substance abuse treatment options, and even cover some of the cost. Despite this, patient is not interested in considering treatment. Patient does not feel that inpatient psychiatric treatment will be helpful, but is also resistant to any alternative treatment options recommended. When asked what would be different after discharge compared to his initial admission, patient is unable to clearly answer this question. Patient does deny active suicidal ideation at this time, but seems unable to understand the level of concern and this provider has about his inability to participate with safety planning. He denies any other needs from our service at this time. Patient was informed that inpatient psychiatric treatment may be recommended, and that he is on a 302 warrant at this time. Past Psychiatric History Previous Psych History: Patient reports a history of depression, which was previously treated with sertraline. Patient reports benefit when taking the medication several years ago. He denies specific symptoms of depression or anxiety, but does admit to intermittent stressors that become overwhelming. Patient does admit to occasional suicidal ideation, though is denies to this provider or plan to act on these thoughts. He does report inpatient psychiatric treatment at the [facility] several years ago. He denies prior suicide attempts. Do You Have Access To A Gun?: Yes Allergies Allergy/AdvReac Type Severity Reaction Status Date / Time No Known Allergies Allergy Verified 07/13/18 15:03 Home Medications Home Medications Medication Instructions Recorded Confirmed Type omeprazole 20 mg PO DAILY 09/24/19 09/24/19 History Family History Patient denies significant family history of mental health conditions. Substance Abuse History Patient admits to consuming smokeless tobacco (one can lasts two days), and 4 to 5 cigarettes daily. He verbalizes most recent alcohol use on a daily basis, between 5 and 15 beers depending on his work schedule. At his most significant use, patient states that he would consume "a 30 pack" a day in addition to other drinks containing liquor. Patient reports 8-9 inpatient drug and alcohol rehabilitation stays. Most recently he attended a program at [facility] in 09/2018. Patient denies use of illicit substances. 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 Patient History Medical History Depression ETOH abuse GERD (gastroesophageal reflux disease) Smoker Suicidal thoughts (Acute) Surgical History No history of previous surgery Family History Father , age 70 from [place] Coronary heart disease Social History Preferred Language: Israeli Communication Ability: Effective Gelatin Plant Supervisor Required: No Beliefs That Will Affect Care: None marital status: Current Living Situation: Other Current Living Situation Comment: Lives with several other men in same house Other Information That Helps Us Care for You: No Feels Safe at Home: Yes Safety Concerns: Feels Safe At This Time Smoking Status: Smoker, status unknown Hx Alcohol Use: Yes Alcohol type: beer Hx Substance Use: No Physical Exam Psychiatric: Orientation: alert, oriented x 3 and cooperative (Superficially) Apperance: appropriately dressed (For setting/situation, wearing paper scrubs), + disheveled and appeared stated age Overweight appearing male, seated in no acute distress. Patient is appropriately dressed in paper scrubs, given suicide precaution orders. He appears unshaven, with hair being disheveled. Grooming appears poor, though he is not malodorous. Eye Contact: good eye contact Motor Behavior: steady gait and station and + tremor Speech: normal rate/rhythm/volume of speech Affect: + blunted affect and mood congruent with affect Mood: + depressed mood and + anxious mood Reports of mood are somewhat contradictory. Patient verbalizes both anxiety and depression, but then states he has no mental health concerns that would require our ongoing involvement. Thought Process: goal directed thought process, clear/coherent thought process and thought association intact Thought Content: reality based without delusions; no hopelessness and no worthlessness Suicidal Thoughts: denies suicidal thoughts and denies suicidal intent Does admit to passive SI prior to hospital admission, denies active suicidal ideation at this time Homicidal Thoughts: denies homicidal thoughts Hallucinations: no auditory hallucinations and no visual hallucinations Cognition: attention grossly intact and language grossly intact Insight: + limited insight Judgement: + limited judgement Vital Signs (Past 24 Hours): Last Vital Signs Temp 36.7 C 09/25/19 07:00 Pulse 61 09/25/19 07:00 Resp 20 09/25/19 07:00 BP 145/78 H 09/25/19 07:00 Pulse Ox 94 09/25/19 07:00 Review of Systems Constitutional: denied Cardiovascular: denied Respiratory: denied Gastrointestinal: denied Neurological: denied Psychiatric: denies symptoms other than stated above Total of at least 10 systems reviewed, pertinent positives as above and in HPI. Results & Data Medications Administered Aspirin (Ecotrin Ectab) 81 mg PO [facility] Stop: 10/25/19 08:59 Last Admin: 09/25/19 08:24 Dose: 81 mg Documented by: [id number] Atorvastatin Calcium (Lipitor) 80 mg PO [facility] Stop: 10/24/19 16:44 Last Admin: 09/25/19 08:24 Dose: 80 mg Documented by: [id number] Admin: 09/24/19 17:43 Dose: 80 mg Documented by: [id number] Enoxaparin Sodium (Lovenox) 40 mg SQ [facility] Stop: 10/24/19 20:59 Last Admin: 09/24/19 20:57 Dose: 40 mg Documented by: [id number] Folic Acid (Folvite) 1 mg PO [facility] Stop: 10/25/19 08:59 Last Admin: 09/25/19 08:24 Dose: 1 mg Documented by: [id number] Lidocaine (Lidoderm 5%) 1 patch TD [facility] Stop: 10/25/19 10:14 Last Admin: 09/25/19 10:48 Dose: 1 patch Documented by: [id number] Metoprolol Tartrate (Lopressor) 25 mg PO TID [facility] Stop: 10/24/19 20:59 Last Admin: 09/25/19 08:25 Dose: 25 mg Documented by: [id number] Admin: 09/24/19 20:57 Dose: 25 mg Documented by: [id number] Miscellaneous (Remove Nicoderm Patch) 1 ea N/A [id number] [facility] Stop: 10/25/19 08:58 Last Admin: 09/25/19 08:26 Dose: Not Given Documented by: [id number] Nicotine (Nicoderm Cq) 21 mg TD [facility] Stop: 10/24/19 19:14 Last Admin: 09/25/19 08:25 Dose: Not Given Documented by: [id number] Admin: 09/24/19 21:00 Dose: Not Given Documented by: [id number] Pantoprazole Sodium (Protonix) 40 mg PO DAILY [facility]; Protocol Stop: 10/25/19 08:59 Last Admin: 09/25/19 08:25 Dose: 40 mg Documented by: [id number] Thiamine HCl (Vitamin B-1) 100 mg PO [facility] Stop: 10/25/19 08:59 Last Admin: 09/25/19 08:25 Dose: 100 mg Documented by: [id number] Coding Level of Care Code 44639 [facility] Intl Hosp Care Lvl 3
[2019-09-25] MEDS: ENOXAPARIN INJ 40 MG/0.4 ML SYR SQ SCH (20:41)
[2019-09-26] MEDS: GABAPENTIN 600 MG TAB PO SCH (06:31)
[2019-09-26] MEDS: FOLIC ACID 1 MG TAB PO SCH (07:58)
[2019-09-26] MEDS: ATORVASTATIN 40 MG TAB PO SCH (07:58)
[2019-09-26] MEDS: THIAMINE HCL 100 MG TAB PO SCH (07:58)
[2019-09-26] MEDS: METOPROLOL TARTRATE 25 MG TAB PO SCH (07:58)
[2019-09-26] MEDS: ASPIRIN 81 MG ECTAB PO SCH (07:58)
[2019-09-26] MEDS: PANTOprazole 40 MG TAB PO SCH (07:58)
[2019-09-26] MEDS: NICOTINE 21 MG/24 HR TDSY TD SCH (08:00)
[2019-09-26] MEDS ORDERED: LIDOCAINE 5% 1 PATCH TD SCH (09:00)
--- NOTE | 2019-09-26 09:40 | Discharge Summary ---
Date of Service September 26, 2019 Admission HPI Per Admitting Provider 58 yo male smoker who abuses alcohol presents with suicidal ideations. He reports specifically feeling malaise in the past several days. He denies chest pain, shortness of breath at rest or with exertion, nausea, vomiting, blood per rectum, changes in stools, fevers, chills, respiratory symptoms or other issues. He reports drinking heavily for a long period of time, specifically quantifies 12 beers daily, last drink this morning. States he feels slightly shaky and has a generalized headaches ;reports that he feels some withdrawal symptoms. Denies homicidal ideations, denies having a weapon on his person. Nurse reports he and his stuff has been searched. Pt reports depression and used to take Zoloft but "just quit." He denies current treatment for depression, and denies any specific triggers. Actively states that "I mylene I'm having a heart attack and it will just take me quickly." Reports the plan this morning was to use his gun (reports he carries only one), but he decided to call the ER for help instead. Lives in a home with multiple nonfamily roommates. Reports tobacco snuff/chew-1 can per couple days. Also smokes cigarettes on occasion. Reports feeling embarrassed for his actions this morning. Admission Exam Per Admitting Provider CONSTITUTIONAL: WNWD, vitals as above, generally well-appearing but appears fidgety EYES: EOMI bilaterally, pupils are equal bilaterally, normal conjunctivae, no scleral icterus ENT: MMM RESPIRATORY: clear to auscultation bilaterally, no crackles, rales or wheezes, normal respiratory effort CARDIOVASCULAR: regular rate and rhythm, S1 and 2 heard without murmurs, gallops or rubs, no JVD, no peripheral edema GASTROINTESTINAL: normal bowel sounds, soft, nontender, nondistended MUSCULOSKELETAL: strength 5/5 throughout, head is normocephalic and atraumatic, neck supple, normal palpation of chest wall without tenderness SKIN: warm and dry NEUROLOGIC: CN 2-12 grossly intact, normal cognition, normal speech, no gross focal deficits. Starting to look hypervigilant/anxious. Consistently moving his hips around like he cannot get comfortable. PSYCHIATRIC: alert cooperative and oriented to person, place and time. Tearful, expressing remorse of events this am. Principal Diagnosis suicidal ideations alcohol intoxication and withdrawal smoker Discharge Exam CONSTITUTIONAL: WNWD, vitals as above, generally well-appearing, NAD EYES: normal conjunctivae, no scleral icterus ENT: MMM RESPIRATORY: clear to auscultation bilaterally, no crackles, rales or wheezes, normal respiratory effort CARDIOVASCULAR: regular rate and rhythm, S1 and 2 heard without murmurs, gallops or rubs, no JVD, no peripheral edema GASTROINTESTINAL: soft, nontender, nondistended MUSCULOSKELETAL: strength 5/5 throughout, head is normocephalic and atraumatic SKIN: warm and dry NEUROLOGIC: CN 2-12 grossly intact, normal cognition, normal speech, no gross focal deficits. No anxiety or tremulousness noted. PSYCHIATRIC: alert cooperative and oriented to person, place and time. Discharge Data Allergies Allergy/AdvReac Type Severity Reaction Status Date / Time No Known Allergies Allergy Verified 07/13/18 15:03 Consultations 09/24/19 13:51 ED Decision to Admit Stat 09/24/19 14:13 Consult Case Management - Discharge Planning Routine 09/24/19 16:11 Consult Cardiology Routine 09/24/19 16:54 Consult Behavioral Health Liaison Routine 09/24/19 19:00 Consult Psychiatry Routine Hospital Course (1) Suicidal ideations: (2) Troponin I above reference range: (3) Alcohol withdrawal: (4) Tobacco use: (5) GERD (gastroesophageal reflux disease): (6) ETOH abuse: 58 yo alcoholic man presented with malaise from a recent illness along with suicidal ideations. He was intoxicated with alcohol and was treated for alcohol withdrawal. Labwork revealed a mild elevation in his troponin enzyme, without reports of chest pain or other ACS symptoms. Trend was flat and did not increase overnight. An echo was performed revealing no acute wall motion abnormalities. Cardiology was consulted and recommended against further cardiac testing moving forward. He was seen by mental health who recommend inpatient psychiatric treatment. He was transferred in stable condition to . Recommendations were made to follow-up with his PCP within one week of discharge from the mental health facility for a recheck of his blood pressure and cholesterol which were somewhat elevated here. Elevated blood pressure is thought secondary to some component of alcohol withdrawal and no long-term agent was given as this was thought to be temporary. Total Time Total Time Spent Total Time Spent (In Minutes): 60 Total Time Includes: Examination of the Patient, Discharge Planning, Medication Reconciliation and Communication With Other Providers Discharge Plan Discharge Items Patient Disposition: Transfer Behavioral Health Fac Reason For Visit: SUICIDAL IDEATIONS, ELEVATED TROP Discharge Diagnosis: suicidal ideations alcohol intoxication and withdrawal smoker Condition on Discharge: Good Goals: stop using tobacco and alcohol Activity: Resume your previous activity Non-emergency contact: Primary Care Provider Call non-emergency contact if: you have any medication questions, your symptoms worsen, your pain is not controlled, your pain is worsening, your pain is unusual for you, your pain is concerning for you and you have a fever Follow-up/Referrals: PCP,NO [Primary Care Provider] - Diet: Regular Addtl Attending Provider Instructions: Please continue all medications as instructed on discharge list below. Your blood pressure was slightly elevated while you were in the hospital, which is likely related to alcohol withdrawal. It is strongly recommended that you follow-up with your primary care physician within one week of discharge from the mental health facility to ensure you are at goal. Additionally you were found to have some elevated cholesterol, which will also need to be rechecked as this is a modifiable risk factor for heart disease moving forward. It is strongly recommended that you quit tobacco and alcohol as these are bad for your health. It was a pleasure taking care of you! Please call if you have any questions or problems. You can reach a [facility] hospitalist on duty at [facility] 24 hours a day by calling [phone]. Take care of yourself. Celina Rayo, DO [facility] Hospitalist Pending Studies at Discharge: No Stand-Alone Forms: My [facility], Suicide Prevention Resources Skilled Items DNR: No Lines: None Urinary Catheter: No Medications and DC Order Prescriptions: Continued omeprazole 20 mg capsule,delayed release(DR/EC) 20 mg PO DAILY RF: 0 Discharge Orders: Discharge Order (Routine); Ordered 09/26/19 Ordered By: Celina Rayo Admission Data Admit Date/Time: 09/25/19 22:43 Attending Provider: Celina Rayo Admit Provider: Celina Rayo Primary Care Provider: PCP,NO Other Providers: Celina Rayo ; Dean Quinonez ; Zulema Rodriges
[2019-09-26] MEDS ORDERED: GABAPENTIN 600 MG TAB PO SCH (18:00)
[2019-09-28] MEDS ORDERED: GABAPENTIN 600 MG TAB PO SCH (06:00)
== END 2019-09-26 11:02 | DRG 897 ==
LOC: ED 10:32 → 2W 10:32 → SUATTDRO 14:08 → 2W 14:53

== ENCOUNTER 2019-09-26 10:45 | Inpatient (IN) ==
[2019-09-26] MEDS ORDERED: ACETAMINOPHEN 325 MG TAB PO PRN (11:43)
[2019-09-26] MEDS ORDERED: BISMUTH SUBSALICYLATE PER ML OMNICELL CHARGE PO PRN (11:43)
[2019-09-26] MEDS ORDERED: MAGNESIUM HYDROXIDE SUSP 30 ML UDC PO PRN (11:43)
[2019-09-26] MEDS ORDERED: SODIUM CHLORIDE 0.65% NA SOLN 45 ML (OCEAN) PRN (11:43)
[2019-09-26] MEDS ORDERED: ALUMINUM/MAGNESIUM SUSP 30 ML UDC PO PRN (11:43)
--- NOTE | 2019-09-26 11:47 | History & Physical ---
Date of Service September 26, 2019 Impression / Recommendations Impression 58-year-old twice male who has a history of recurrent severe depression and alcohol dependence who presented with suicidal ideation and thoughts to shoot himself, access to a loaded gun, alcohol intoxication, and untreated depression. His troponin was elevated in the ER so he was admitted medically for cardiac work-up, and today signed in voluntarily for psychiatric treatment. He had been seen on the psychiatry service last year when admitted medically for DTs, and sertraline was increased to target depression. He is no longer taking an antidepressant, and is not receiving any outpatient treatment. He is estranged from his family and indicates very limited supports, was unwilling to allow hospital staff to contact anyone or to make a plan to remove his gun until mood had stabilized. He admits his mood has been worse due to the upcoming holidays and loneliness/lack of relationship with his family. Inpatient treatment is medically necessary due to the severity of symptoms and risk for suicide if discharged. (1) Suicidal thoughts: Every 15 minute checks for safety. Attending participate in groups and therapy, work on healthy coping skills and discharge safety plan. Recommend family meeting and plan to remove/secure firearms until mood has stabilized, which patient is currently declining. Present on Admission?: Yes (2) Depression: History of good response to sertraline, explore resuming SSRI. Recommend outpatient dual diagnosis treatment. Right psychoeducation about diagnosis and treatment recommendations, including role of good self-care, healthy diet, exercise, avoiding alcohol, socializing, and engaging in activities he enjoys. Depression Type: major depressive disorder Major depression recurrence: recurrent Active/Remission status: currently active Major depression episode severity: severe Psychotic features: without psychotic features Qualified Code(s): F33.2 - Major depressive disorder, recurrent severe without psychotic features Present on Admission?: Yes (3) Alcohol dependence: Denies alcohol withdrawal symptoms other than mild hypertension. History of severe withdrawal with DTs, but reports he does not drink as heavily now as he has in the past. History of inpatient rehab, but not interested in returning at this point. Reviewed the risks of ongoing alcohol use, including depression, suicide, legal problems, organ damage, withdrawal, etc. Patient is resistant to treatment recommendations. Continue to support and explore options, motivational interviewing. Present on Admission?: Yes (4) Hypertension: Hospitalist recommended follow-up with PCP within a week of discharge. No medications started as elevated BP thought to be likely due to alcohol withdra oswaldo. Present on Admission?: Yes (5) Tobacco use: Patient chews, offered patch and gum, which he declined. Present on Admission?: Yes Risk Factors Assessment Male: Yes : Yes Do You Have Access To A Gun?: Yes Health Problems: Yes Mental Health Diagnoses: Yes Substance Use Disorders: Yes Previous Attempt: No Family History of Suicide: No Previous Psychiatric Hospitalization: Yes Hopelessness: Yes Smoker: No Protective Factors Assessment : No Responsible for Young Children: No Employed: Yes Stable Relationships: No Supportive Family: No Good Rapport with Provider: No Psychiatric History Identifying Data ROBI DAVALOS is a 58-year-old male with a history of depression and alcohol abuse who currently lives in [place] and was admitted on 09/26/19 11:03 on a 201 voluntary commitment for suicidality. Chief Complaint " I think sometimes things can be taken out of context.... My initial call was just to see if I could come here". History of Present Illness Patient presented to the ER 09/24/2019 reporting worsening depression for the past 4 days, thoughts that it would be best if he was not here, and suicidal thoughts to shoot himself. He reported he had a loaded gun in his home and had thought about using it to kill himself, and that is why he came to the ER. He said he had no supports, was estranged from his family, and struggles around the holidays. He said he had been drinking the past 4 days, and his BAL was 186. Case management notes indicate that he called the ER psych case technician prior to presentation, asking if he could come to the hospital for care even if he did not have insurance. He said he had been drinking to self medicate his depressive symptoms, had multiple stressors, and was tearful. Police were contacted to do a wellness check, and when the officer arrived, the patient stated he wanted to kill himself. The officer completed a 302 conditioning statement, "Robi Davalos called [facility] stating his intent to commit suicide. I arrived and found Nepalese intoxicated and crying. Nepalese stated to me that he had a loaded .22 rifle. Nepalese that he had considered putting the barrel to the side of his head and pulling the trigger. Nepalese stated several times that he wished he had the courage to end it. Nepalese claimed he has been drinking since . Nepalese has had no contact with his family in approximately 5 years." He reported to ER staff that he had been estranged from his family for the last 5 years and does not know how to handle the pain and stress of that. He stated that he came to the hospital because of suicidal thoughts. He was admitted medically for a cardiac work-up due to elevated troponin. He had a normal echocardiogram, and cardiology did not believe he had an ischemic event and recommended follow-up with his PCP. He did have some hypertension on the medical unit, but this was thought to be due to alcohol withdrawal. He was seen by NILES Arteaga, on the psychiatry consult service yesterday. Per her assessment, he had been physically ill for about 3 to 4 days, and was overwhelmed with concern for physical symptoms. He reports realization that ongoing alcohol use likely did not help his physical presentation. He informs this provider that he "started getting goofy feelings and called up here [hospital/ED]. I guess I implied I did not care if I was around anymore." Patient does verify in a roundabout way that "goofy feelings" does not imply apathy regarding continuing to live. He states "I guess sometimes I have those thoughts, like it is just as easy to not be around, or I just do not care." The patient does admit to several "depressing things for sure" over the last 5 to 6 years. 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 Patient states that he has been in the past, and has several children to 2 prior marriages. He denies contact with any family members at this time. Contradictory to reports patient apparently made to police and ED psychiatric case technician, the patient informs this provider "I did not really dwell on it, I am never going to do that. I have known people who have killed themselves, it is not what I want." When asked questions in order to determine if safety planning would be appropriate, the patient is unable to verbalize any supports that could be contacted to verify limited safety concerns. When asked about coping strategies, the patient states that he is mostly independent and isolative. He does state that he would consider going to synagogue and exercising. Patient was informed of recommendation for inpatient drug and alcohol rehabilitation, as he reports continued use of excessive amounts of alcohol "7 days a week." Patient states that he is not interested in rehab referrals, and is not willing to pursue outpatient drug and alcohol treatment either. Patient also declines recommendation for outpatient therapy, and is not willing to cons ider psychiatric medications to target worsening anxiety and depression. Patient contradicts himself on several occasions, initially reporting increase in depression and anxiety, then later stating that things are "fine" and he does not require any assistance from our service. Patient does state that he had previously been prescribed sertraline, which was rather helpful when he was taking it. Again, he is declining to resume the medication or consider alternative options. The patient does report decreased energy and motivation over the past year. He verbalizes apathy on several occasions, stating "I just do not care." Patient does report history of treatment for alcohol abuse. He believes he has been to rehab 8 or 9 times, most recently in 09/2018 at [facility]. The patient states on most occasions he finishes the program, "I get the certificate and then throw it in the trash." The patient believes that his alcohol habits have changed, and reports feeling comfortable with the amount he consumes. Patient states "I drink because I like beer, not because I have a problem anymore." The patient does admit to consuming 12-15 beers on a day in which he is not working, and at least 4-5 beers after work. He states that his first drink is generally about 6 hours after he awakes at 4 AM, putting his first drink around 10:00 in the morning. 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 Patient did verbalize consideration to attend outpatient AA/recovery groups, as they are "free." Patient was informed that the base service unit may be able to offer with substance abuse treatment options, and even cover some of the cost. Despite this, patient is not interested in considering treatment. Patient does not feel that inpatient psychiatric treatment will be helpful, but is also resistant to any alternative treatment options recommended. When asked what would be different after discharge compared to his initial admission, patient is unable to clearly answer this question. Patient does deny active suicidal ideation at this time, but seems unable to understand the level of concern and this provider has about his inability to participate with safety planning. He denies any other needs from our service at this time. Patient was informed that inpatient psychiatric treatment may be recommended, and that he is on a 302 warrant at this time. Patient was hospitalized here medically in July 2018 for alcohol withdrawal. He was seen by the psychiatry consult service for depression, and sertraline was increased to 150 mg daily. Recommendations were for rehab (which he declined) or IOP to target his substance abuse. On my assessment today, the patient states that he has been depressed and abusing alcohol, and developed suicidal thoughts in the context of a physical illness for several days last week, with nausea, vomiting, diarrhea, and muscle aches. Mood also exacerbated by the upcoming holidays and being estranged from his family. States that he is estranged from all family members, including his siblings, ex-wives, and adult children. 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 Reports loneliness, typically works on the holidays as he has no contact with his family and no one else to spend the holidays with. States he knows he should exercise to help himself feel better physically and mentally, but does not. States he does not want to talk to his friends about what he is going through, and wants to do it on his own. After discussion of the recommended treatment, he agreed to voluntary psychiatric hospitalization. He denies current symptoms of alcohol withdrawal, although reports he has had withdrawal in the past. Past Psychiatric History Previous Psych History: Previously diagnosed with depression and alcohol dependence and withdrawal. Current Psychiatric Diagnosis: Depression, alcohol dependence Outpatient Services: None currently. Previous Psych Admissions: [place], patient unable to state when he was the re Do You Have Access To A Gun?: Yes History of Previous Suicide Attempt: No Past Medication Trials: Sertraline Allergies Allergy/AdvReac Type Severity Reaction Status Date / Time No Known Allergies Allergy Verified 07/13/18 15:03 Home Medications Home Medications Medication Instructions Recorded Confirmed Type omeprazole 20 mg PO DAILY 09/24/19 09/26/19 History Family History Family History of: Alcoholism/Drug Abuse Alcohol History Hx of Alcohol Use Over the Past 12 Months: Yes Longstanding alcohol dependence, history of drinking a case of beer daily. History of withdrawal with DTs, medical hospitalization in 07/2018 for withdrawal. Multiple inpatient rehabs. DUI 2011 Smoking Use Have You Smoked or Used Tobacco Products in the Last 30 Days: No tobacco type: smokeless tobacco Substance History Hx of Prescription Med Misuse Over the Past 12 Months: No Hx of Over the Counter Med Misuse Over the Past 12 Months: No Hx of Inhalent Misuse Over the Past 12 Months: No Hx of Organic Substance Use Over the Past 12 Months: No Hx of Illegal Substances/Street Drug Use Over Past 12 Months: No Problems as a Result of Past Substance Use: Arrested, Life out of Control, Estranged from Family, Loss of Family Support and Other (Loss of his business) Personal History Living Arrangements Comments: [place] with a roommate Highest Grade Completed: High School Graduate 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 Bought a restaurant, but lost it. 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.) Marital Status: (X2) Number Of Children: 3 adult children Beliefs That Will Affect Care: Restoration Current Legal Problems: No Hx Legal Problems: Yes Hx Traumatic Life Events: Yes (Losing his restaurant and filing for bankruptcy) Patient History Medical History (Updated 09/26/19 @ 13:58 by Zulema Rodriges MD) Alcohol dependence Depression GERD (gastroesophageal reflux disease) Smoker Suicidal thoughts (Acute) Surgical History No history of previous surgery Social History Preferred Language: Nepalese Communication Ability: Effective Sugar Trucker Required: No Beliefs That Will Affect Care: Restoration Restoration Beliefs: n/a marital status: Current Living Situation: Other Current Living Situation Comment: Lives with several other men in same house Feels Safe at Home: Yes Hx Alcohol Use: Yes Alcohol type: beer Hx Substance Use: No Review of Systems Review of Systems: All systems reviewed & are unremarkable except as noted in HPI & below Physical Exam Psychiatric: Orientation: alert, oriented x 3 and cooperative Apperance: appropriately dressed (Paper scrubs), appropriately groomed and appeared stated age Eye Contact: + fair eye contact Motor Behavior: steady gait and station and no abnormal motor movements Speech: normal rate/rhythm/volume of speech Affect: + blunted affect; + mood not congruent with affect (Appears depressed) "I'm fine." Thought Process: goal directed thought process (But irrational thought process) Thought Content: + loneliness and + guilt Suicidal Thoughts: + reports suicidal thoughts Denies SI currently, but admits to suicidal thoughts with a plan to shoot himself and access to a loaded gun on the day of presentation. Homicidal Thoughts: denies homicidal thoughts Hallucinations: no auditory hallucinations and no visual hallucinations Cognition: recent memory grossly intact, remote memory grossly intact, attention grossly intact and language grossly intact Estimated Intelligence: consistent with education level Insight: + impaired insight Judgement: + impaired judgement Exam Statement: A physical exam was performed on the medical floor prior to admission to the unit by Dr. Rayo. I accept that physical as correct/medical clearance for the inpatient physical exam. Results & Data Current Inpatient Medications Current Inpatient Medications: Current Inpatient Medications Acetaminophen (Tylenol) 650 mg PO Q4H PRN PRN Reason: Headache or Minor Fever Stop: 10/26/19 11:42 Al Hydrox/Mg Hydrox/Simethicone (Maalox) 30 ml PO Q4H PRN PRN Reason: GI Upset Stop: 10/26/19 11:42 Bismuth Subsalicylate (Kaopectate) 15 ml PO PRN PRN PRN Reason: Loose Stool Stop: 10/26/19 11:42 Hydroxyzine HCl (Vistaril) 50 mg PO HSZ PRN PRN Reason: Insomnia Stop: 10/26/19 11:42 Hydroxyzine HCl (Vistaril) 25 mg PO Q4H PRN PRN Reason: Anxiety Stop: 10/26/19 11:42 Magnesium Hydroxide (Milk Of Magnesia) 30 ml PO DAILY PRN PRN Reason: Constipation Stop: 10/26/19 11:42 Sodium Chloride ([place] Nasal) 1 - 2 sprays NA PRN PRN PRN Reason: Nasal Dryness/Congestion Stop: 10/26/19 11:42
[2019-09-27] MEDS: PANTOprazole 40 MG TAB PO SCH (08:24)
--- NOTE | 2019-09-27 12:13 | Psychiatric Progress Note ---
Date of Service September 27, 2019 Impression / Recommendations Impression 58-year-old twice male who has a history of recurrent severe depression and alcohol dependence who presented with suicidal ideation and thoughts to shoot himself, access to a loaded gun, alcohol intoxication, and untreated depression. His troponin was elevated in the ER so he was admitted medically for cardiac work-up, and today signed in voluntarily for psychiatric treatment. He had been seen on the psychiatry service last year when admitted medically for DTs, and sertraline was increased to target depression. He is no longer taking an antidepressant, and is not receiving any outpatient treatment. He is estranged from his family and indicates very limited supports, was unwilling to allow hospital staff to contact anyone or to make a plan to remove his gun until mood had stabilized. He admits his mood has been worse due to the upcoming holidays and loneliness/lack of relationship with his family. He continues to refuse recommendations for inpatient drug and alcohol rehabilitation, as well as suggested outpatient resources. Inpatient treatment is medically necessary due to the severity of symptoms and risk for suicide if discharged. (1) Suicidal thoughts: Every 15 minute checks for safety. Attending participate in groups and therapy, work on healthy coping skills and discharge safety plan. Recommend family meeting and plan to remove/secure firearms until mood has stabilized, which patient is currently declining. 09/27 - Denies SI today, reporting desire for discharge - Continue to engage in group programming, to process events leading to his ED phone call requesting help (2) Depression: History of good response to sertraline, explore resuming SSRI. Recommend outpatient dual diagnosis treatment. Right psychoeducation about diagnosis and treatment recommendations, including role of good self-care, healthy diet, exercise, avoiding alcohol, socializing, and engaging in activities he enjoys. 09/27 - Pt continues to decline initiation of antidepressant medications - He appears to be in denial about how the events prior to his admission may indicate larger underlying mental health concerns - He is refusing recommendations for inpatient D&A rehab, outpatient substance abuse treatment, therapy and case management - Pt was willing for a referral to [facility] to address hypertension and any future medical concerns (3) Alcohol dependence: Denies alcohol withdrawal symptoms other than mild hypertension. History of severe withdrawal with DTs, but reports he does not drink as heavily now as he has in the past. History of inpatient rehab, but not interested in returning at this point. Reviewed the risks of ongoing alcohol use, including depression, suicide, legal problems, organ damage, withdrawal, etc. Patient is resistant to treatment recommendations. Continue to support and explore options, motivational interviewing. (4) Hypertension: Hospitalist recommended follow-up with PCP within a week of discharge. No medications started as elevated BP thought to be likely due to alcohol withdrawal. 09/27 - Pt reports history of hypertension - previously treated with clonidine - States he was unable to continue clonidine when he stopped seeing a PCP - [facility] referral for ongoing follow-up of medical needs (5) Tobacco use: Patient chews, offered patch and gum, which he declined. Risk Factors Assessment Male: Yes : Yes Do You Have Access To A Gun?: Yes Health Problems: Yes Mental Health Diagnoses: Yes Substance Use Disorders: Yes Previous Attempt: No Family History of Suicide: No Previous Psychiatric Hospitalization: Yes Hopelessness: Yes Smoker: No Protective Factors Assessment : No Responsible for Young Children: No Employed: Yes Stable Relationships: No Supportive Family: No Good Rapport with Provider: No Interval History Identifying Information ROBI WREN is a 58-year-old male with a history of depression and alcohol abuse who currently lives in [place] and was admitted on 09/26/19 11:03 on a 201 voluntary commitment for suicidality. Chief Complaint "I am fine. I do not have any issues." Review of Systems Notes Constitutional: denied Cardiovascular: denied Respiratory: denied Gastrointestinal: denied Neurological: denied Psychiatric: denies symptoms other than stated above Total of at least 10 systems reviewed, pertinent positives as above and in HPI. Sleep Information Total Hours of Sleep: 5.5 Sleep Comments: awake at 0200 for 30-40 min then 0340 for 30-40 min. stated his roommates movements kept him awake/awakened him Meal Information Percent Meal Consumed - Breakfast: 100 Percent Meal Consumed - Lunch: 100 Percent Meal Consumed - Dinner: 100 Subjective Subjective Patient was seen & assessed and interval progress reviewed with nursing and social work. Staff report the patient has been participating in group programming, but is unwilling for outpatient providers, D&A treatment, or to even consider medications. It is reported that patient has verbalized multiple supports, though has not reached out to them during his admission. Patient was seen today to assess progress since admission. He informed this provider that he is "fine", and reiterates multiple times that he does "not have any issues." Patient was reminded of the events reported prior to his admission, and that staff is interested in helping him ensure that these events can be prevented in the future. This provider continue to inform him of the recommendations for inpatient drug and alcohol rehabilitation, outpatient drug and alcohol treatment, therapy referrals, and recommendation to retrial sertraline. Patient continues to refuse all of these recommendations, continuing to believe that they will not be helpful, as he does not have a problem. Patient was informed that at the very least we would like to set him up with a primary care doctor. He is agreeable with referral to [facility], and was informed that this facility would likely be able to point him in the direction of substance abuse/psychiatric outpatient treatment if patient should desire in the future. Patient continues to deny suicidal ideation, stating he was never at risk of harming himself prior to admission. Patient states his motivation at this time is to "play the game, because I gotta get back to work." He denies other needs or concerns at this time. Physical Exam Psychiatric Orientation: alert and oriented x 3; + uncooperative (Uncooperative, but superficially pleasant.) Apperance: appropriately dressed, appropriately groomed and appeared stated age Eye Contact: good eye contact Motor Behavior: steady gait and station and no abnormal motor movements Speech: normal rate/rhythm/volume of speech Affect: + irritable affect and mood congruent with affect Mood: + irritable mood ("I am fine" and "I am just gonna play the game, I got a get back to work") Thought Process: goal directed thought process, clear/coherent thought process and thought association intact Thought Content: + cognitive distortions and + loneliness; no hopelessness Suicidal Thoughts: denies suicidal thoughts and denies suicidal intent Homicidal Thoughts: denies homicidal thoughts Hallucinations: no auditory hallucinations and no visual hallucinations Cognition: attention grossly intact and language grossly intact Insight: + limited insight Judgement: + limited judgement Vital Signs (Past 24 Hours) Last Vital Signs Temp 36.3 C L 09/27/19 06:35 Pulse 69 09/27/19 06:35 Resp 16 09/27/19 06:35 BP 147/90 H 09/27/19 06:35 Results & Data Current Inpatient Medications Current Inpatient Medications: Current Inpatient Medications Acetaminophen (Tylenol) 650 mg PO Q4H PRN PRN Reason: Headache or Minor Fever Stop: 10/26/19 11:42 Al Hydrox/Mg Hydrox/Simethicone (Maalox) 30 ml PO Q4H PRN PRN Reason: GI Upset Stop: 10/26/19 11:42 Bismuth Subsalicylate (Kaopectate) 15 ml PO PRN PRN PRN Reason: Loose Stool Stop: 10/26/19 11:42 Hydroxyzine HCl (Vistaril) 50 mg PO HSZ PRN PRN Reason: Insomnia Stop: 10/26/19 11:42 Hydroxyzine HCl (Vistaril) 25 mg PO Q4H PRN PRN Reason: Anxiety Stop: 10/26/19 11:42 Magnesium Hydroxide (Milk Of Magnesia) 30 ml PO DAILY PRN PRN Reason: Constipation Stop: 10/26/19 11:42 Pantoprazole Sodium (Protonix) 40 mg PO DAILY ARABELLA; Protocol Stop: 10/27/19 08:59 Last Admin: 09/27/19 08:24 Dose: 40 mg Documented by: Sodium Chloride ([place] Nasal) 1 - 2 sprays NA PRN PRN PRN Reason: Nasal Dryness/Congestion Stop: 10/26/19 11:42 Post Discharge Appointments Primary Care Physician Name Of Family Doctor: JOSE ALBERTO Primary Care Provider Appointment Comment: Peyton German, [place] [address] Other #1: Name of Aftercare Appointment: AA Meeting Information in Discharge Planning Contact Information Discharge Discharge Address: [address] [place] [address] (1) Depression Active/Remission status: currently active Depression Type: major depressive disorder Major depression episode severity: severe Major depression recurrence: recurrent Psychotic features: without psychotic features Qualified Code(s): F33.2 - Major depressive disorder, recurrent severe without psychotic features
[2019-09-28 06:58] VITALS: BP 142/89; PULSE 82; TEMP 98.1
[2019-09-28] MEDS: PANTOprazole 40 MG TAB PO SCH (09:32)
--- NOTE | 2019-09-28 16:37 | Discharge Summary ---
Date of Service September 28, 2019 History of Present Illness Patient presented to the ER 09/24/2019 reporting worsening depression for the past 4 days, thoughts that it would be best if he was not here, and suicidal thoughts to shoot himself. He reported he had a loaded gun in his home and had thought about using it to kill himself, and that is why he came to the ER. He said he had no supports, was estranged from his family, and struggles around the holidays. He said he had been drinking the past 4 days, and his BAL was 186. Case management notes indicate that he called the ER psych case picker prior to presentation, asking if he could come to the hospital for care even if he did not have insurance. He said he had been drinking to self medicate his depressive symptoms, had multiple stressors, and was tearful. Police were contacted to do a wellness check, and when the officer arrived, the patient stated he wanted to kill himself. The officer completed a 302 conditioning statement, "Shadi Davalos called [facility] stating his intent to commit suicide. I arrived and found intoxicated and crying. stated to me that he had a loaded .22 rifle. that he had considered putting the barrel to the side of his head and pulling the trigger. stated several times that he wished he had the courage to end it. claimed he has been drinking since . has had no contact with his family in approximately 5 years." He reported to ER staff that he had been estranged from his family for the last 5 years and does not know how to handle the pain and stress of that. He stated that he came to the hospital because of suicidal thoughts. He was admitted medically for a cardiac work-up due to elevated troponin. He had a normal echocardiogram, and cardiology did not believe he had an ischemic event and recommended follow-up with his PCP. He did have some hypertension on the medical unit, but this was thought to be due to alcohol withdrawal. He was seen by NILES Arteaga, on the psychiatry consult service yesterday. Per her assessment, he had been physically ill for about 3 to 4 days, and was overwhelmed with concern for physical symptoms. He reports realization that ongoing alcohol use likely did not help his physical presentation. He informs this provider that he "started getting goofy feelings and called up here [hospital/ED]. I guess I implied I did not care if I was around anymore." Patient does verify in a roundabout way that "goofy feelings" does not imply apathy regarding continuing to live. He states "I guess sometimes I have those thoughts, like it is just as easy to not be around, or I just do not care." The patient does admit to several "depressing things for sure" over the last 5 to 6 years. 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 Patient states that he has been in the past, and has several children to 2 prior marriages. He denies contact with any family members at this time. Contradict ory to reports patient apparently made to police and ED psychiatric case picker, the patient informs this provider "I did not really dwell on it, I am never going to do that. I have known people who have killed themselves, it is not what I want." When asked questions in order to determine if safety planning would be appropriate, the patient is unable to verbalize any supports that could be contacted to verify limited safety concerns. When asked about coping strategies, the patient states that he is mostly independent and isolative. He does state that he would consider going to christianity and exercising. Patient was informed of recommendation for inpatient drug and alcohol rehabilitation, as he reports continued use of excessive amounts of alcohol "7 days a week." Patient states that he is not interested in rehab referrals, and is not willing to pursue outpatient drug and alcohol treatment either. Patient also declines recommendation for outpatient therapy, and is not willing to consider psychiatric medications to target worsening anxiety and depression. Patient contradicts himself on several occasions, initially reporting increase in depression and anxiety, then later stating that things are "fine" and he does not require any assistance from our service. Patient does state that he had previously been prescribed sertraline, which was rather helpful when he was taking it. Again, he is declining to resume the medication or consider alternative options. The patient does report decreased energy and motivation over the past year. He verbalizes apathy on several occasions, stating "I just do not care." Patient does report history of treatment for alcohol abuse. He believes he has been to rehab 8 or 9 times, most recently in 09/2018 at [facility]. The patient states on most occasions he finishes the program, "I get the certificate and then throw it in the trash." The patient believes that his alcohol habits have changed, and reports feeling comfortable with the amount he consumes. Patient states "I drink because I like beer, not because I have a problem anymore." The patient does admit to consuming 12-15 beers on a day in which he is not working, and at least 4-5 beers after work. He states that his first drink is generally about 6 hours after he awakes at 4 AM, putting his first drink around 10:00 in the morning. 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 Patient did verbalize consideration to attend outpatient AA/recovery groups, as they are "free." Patient was informed that the base service unit may be able to offer with substance abuse treatment options, and even cover some of the cost. Despite this, patient is not interested in considering treatment. Patient does not feel that inpatient psychiatric treatment will be helpful, but is also resistant to any alternative treatment options recommended. When asked what would be different after discharge compared to his initial admission, patient is unable to clearly answer this question. Patient does deny active suicidal ideation at this time, but seems unable to understand the level of concern and this provider has about his inability to participate with safety planning. He denies any other needs from our service at this time. Patient was informed that inpatient psychiatric treatment may be recommended, and that he is on a 302 warrant at this time. Patient was hospitalized here medically in July 2018 for alcohol withdrawal. He was seen by the psychiatry consult service for depression, and sertraline was increased to 150 mg daily. Recommendations were for rehab (which he declined) or IOP to target his substance abuse. On my assessment today, the patient states that he has been depressed and abusing alcohol, and developed suicidal thoughts in the context of a physical illness for several days last week, with nausea, vomiting, diarrhea, and muscle aches. Mood also exacerbated by the upcoming holidays and being estranged from his family. States that he is estranged from all family members, including his siblings, ex-wives, and adult children. 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 Reports loneliness, typically works on the holidays as he has no contact with his family and no one else to spend the holidays with. States he knows he should exercise to help himself feel better physically and mentally, but does not. States he does not want to talk to his friends about what he is going through, and wants to do it on his own. After discussion of the recommended treatment, he agreed to voluntary psychiatric hospitalization. He denies current symptoms of alcohol withdrawal, although reports he has had withdrawal in the past. Physical Exam Psychiatric Orientation: alert, oriented x 3 and cooperative Apperance: appropriately dressed, appropriately groomed and appeared stated age Eye Contact: good eye contact Motor Behavior: steady gait and station Speech: normal rate/rhythm/volume of speech Affect: euthymic affect "Much better. Pretty good, actually." Thought Process: linear/logical thought process and clear/coherent thought process Thought Content: reality based without delusions Suicidal Thoughts: denies suicidal thoughts Homicidal Thoughts: denies homicidal thoughts Hallucinations: no auditory hallucinations Cognition: recent memory grossly intact, remote memory grossly intact, attention grossly intact and language grossly intact Estimated Intelligence: average estimated intelligence Insight: + limited insight Judgement: + fair judgement Vital Signs (Past 24 Hours) Last Vital Signs Temp 36.7 C 09/28/19 12:04 Pulse 82 09/28/19 12:04 Resp 18 09/28/19 12:04 BP 142/89 H 09/28/19 12:04 Principal Diagnosis Depression Psychiatric Data During the course of hospitalization the patient was offered various modalities of psychiatric treatment and education. He was observed by medicine prior to being transferred to the medical floor because of an elevated troponin level. He was also seen by cardiology, but reported that his physical distress had resolved, and he declined further cardiac work-up. We talked about this with the patient, particularly given his family history of heart disease, but the patient emphasized that he was familiar with symptoms of heart disease and he does not feel that he has had any. An EKG completed on 09/26/2019 showed sinus bradycardia but was otherwise normal, and the patient does not present with cardiac symptoms at this point. All though, perhaps, somewhat irascible, particularly initially, the patient consistently denied any actual thoughts of suicide. He also acknowledged that he had been depressed intermittently throughout his adult life, particularly when he lost his business several years ago, but notes that he has not been particularly depressed recently and attributes the behavior that led to the admission primarily to the fact that he was alone (lives with 2 brothers who are away) and was heavily intoxicated. He also consistently denied any history of suicide attempts, any history of active suicidal thoughts, and was future oriented. For example, he says that he is excited about the upcoming expected of a new grandchild. He talked freely about his depressive symptoms when he experienced a significant business reversal several years ago. 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 The patient's affect remained fairly bright. He was actively engaged in the milieu, formed number of alliances, and participated appropriately and actively in individual, group and activity therapies that were offered during the brief stay. Day of Discharge Assessment The patient was fully cooperative with the discharge interview and assessment. He was appropriately dressed and groomed, and was both engaging and spontaneous during the encounter. Patient's speech was delivered at a normal rate and volume, and was spontaneous and fluid. He describes his mood as "good, actually. It is been good for a while now." The patient's affect is bright, although perhaps slightly angry underneath. His thought processes demonstrated tight associations and linear thinking. The patient's thought content was devoid of any psychotic features. He has consistently reported suicidal ideation since arriving. He acknowledges that he has guns in his house, but denies that he had ever put a gun to his head or had ever done anything other than use a threat of shooting himself in order to emphasize the level of his physical distress when attempting to seek prompt medical attention through the emergency department. He notes that he was intoxicated at the time, but says that he can imagine that he might have said something like "if I do not get help I am going to shoot myself" or similar. However, as above he also reports that he is never had any actual suicidal ideation, suicidal plan or suicidal intent intent summary, the patient reports that he is having no thoughts of causing physical harm to the person or property of others. There are some remaining concerns about the patient's judgment, given the fact that he is declining any further cardiac work-up within the context of elevated troponin levels in the emergency room (evidently unexplained) and a family history of myocardial infarction (his father his father was in his early 70s). The patient does have insight into the fact that he has repeatedly gotten himself into trouble through drinking. However, despite his long history of alcohol dependence and the fact that he has continued to suffer negative consequences associated with alcohol consumption, he continues to believe that he can "handle alcohol" by simply moderating intake. He tells us that his plan is to occupy himself on the weekends with various activities, away from the house, so that he is not tempted to drink beer and to otherwise limit his alcohol consumption to no more than 3- 5 beers per day, 7 days a week. He was advised that this is unlikely to work, but the patient tells us that he is not interested in chemical dependency treatment, nor is he interested in participating in self-help groups. The patient also tells us that despite his history of recurrent depression he is disinclined to seek treatment at this point. He states, "why should I? I am really not depressed. I just drank too much." He indicates that he will consult with a primary care physician in the event that he changes his mind in this regard. Advance Directives Advance Directives Information Provided: Yes Advance Directives: No Mental Health Advance Directive: No Advance Directives on File: No Living Will: No Power of Alterations Tailor: No Advance Directives Reason:: Declines as Mental Health Visit. Risk Factors Assessment Male: Yes : Yes Do You Have Access To A Gun?: Yes Health Problems: Yes Mental Health Diagnoses: Yes Substance Use Disorders: Yes Previous Attempt: No Family History of Suicide: No Previous Psychiatric Hospitalization: Yes Hopelessness: Yes Smoker: No Protective Factors Assessment : No Responsible for Young Children: No Employed: Yes Stable Relationships: No Supportive Family: No Good Rapport with Provider: No Tobacco Cessation at Discharge Tobacco Cessation Medication Prescribed at Discharge: Not Applicable/Non-Smoker Hospital Course (1) Suicidal thoughts: Every 15 minute checks for safety. Attending participate in groups and therapy, work on healthy coping skills and discharge safety plan. Recommend family meeting and plan to remove/secure firearms until mood has stabilized, which patient is currently declining. 09/27 - Denies SI today, reporting desire for discharge - Continue to engage in group programming, to process events leading to his ED phone call requesting help 09/28 -The patient continues to deny suicidal thoughts today and displays a bright affect. -When confronted about the report that he had threatened to shoot himself, his explanation was that he had called the emergency room to see if he could be seen without insurance, primarily because of physical distress ("I was dragging and achy like I had the flu and I could shake it.") He indicates that he was intoxicated at the time and does not exactly recall what he said, but believes that it is entirely possible that he said something like "if I cannot get any help I might as well shoot myself." However, he tells me that he had no actual thoughts of shooting himself but, instead, was using the threat of suicide as a emphasizer that he believed was in the service of helping the emergency room s taff understand the level of his distress. 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 However, he notes that even then he was not having suicidal thoughts, even though, at the time, he says that he was "pretty depressed." -Patient says that he has never made a suicide attempt. And has never had any actual suicidal plan or intent. (2) Depression: History of good response to sertraline, explore resuming SSRI. Recommend outpatient dual diagnosis treatment. Right psychoeducation about diagnosis and treatment recommendations, including role of good self-care, healthy diet, exercise, avoiding alcohol, socializing, and engaging in activities he enjoys. 09/27 - Pt continues to decline initiation of antidepressant medications - He appears to be in denial about how the events prior to his admission may indicate larger underlying mental health concerns - He is refusing recommendations for inpatient D&A rehab, outpatient substance abuse treatment, therapy and case management - Pt was willing for a referral to [facility] to address hypertension and any fu ture medical concerns 09/28 -Today, the patient tells me that he has not been feeling depressed recently and, in fact, has been feeling "a little bit better than usual." He attributes the circumstances that led to his admission to a combination of physical distress (flulike symptoms that were persistent) and alcohol intoxication. -We discussed the fact that the patient has a past history of depression and may be using alcohol as a means of managing depression and anxious distress. Accordingly, we might suggest that he consider a trial of an antidepressant medication, but the patient steadfastly refuses to consider this option. (3) Alcohol dependence: Denies alcohol withdrawal symptoms other than mild hypertension. History of severe withdrawal with DTs, but reports he does not drink as heavily now as he has in the past. History of inpatient rehab, but not interested in returning at this point. Reviewed the risks of ongoing alcohol use, including depression, suicide, legal problems, organ damage, withdrawal, etc. Patient is resistant to treatment recommendations. Continue to support and explore options, motivational interviewing. 09/28/19 -The patient continues to report that although he was a heavy drinker in the past, and although he had had complicated withdrawal symptoms previously, including delirium tremens, he has in recent years substantially moderated his alcohol consumption amount. He says that "5 days a week I drink between 3 and 5 beers, usually 4, when I get home in the evening, but I may drink more on the weekends, and on those days I may drink between 8 and 10 beers, although I do not really countI am just estimating this based on how long it takes me to go through a case of beer." He acknowledges that he had had more than 10 beers on the day in question. (4) Hypertension: Hospitalist recommended follow-up with PCP within a week of discharge. No medications started as elevated BP thought to be likely due to alcohol withdrawal. 09/27 - Pt reports history of hypertension - previously treated with clonidine - States he was unable to continue clonidine when he stopped seeing a PCP - [facility] referral for ongoing follow-up of medical needs 09/28 -The patient had an elevated troponin level measured while in the emergency room, evidently in response the patient complaint of physical discomfort and feeling as if he had the flu. He was seen by cardiology. The dermatopathologist report indicates that the patient was not exhibiting or reporting cardiac symptoms. It is noted that the patient's father of heart disease, reportedly in his early 70s, but the patient is noted to have declined any further cardiac work-up. He reports that his flulike symptoms resolved, and he is experiencing no physical distress at this point. He denies symptoms such as shortness of breath on exertion, chest pain, back pain, or radiating pain or numbness. (5) Tobacco use: Patient chews, offered patch and gum, which he declined. Post Discharge Appointments Primary Care Physician Name Of Family Doctor: SILVIO - Intake with [facility] Date of Appointment with PCP: 10/18/19 Time of Appointment with PCP: 11:00 am [facility], [place] [address] Primary Care Release of Information: Obtained, Reviewed and Signed Smoking Cessation Counseling Tobacco Cessation Medication Prescribed at Discharge: Not Applicable/Non-Smoker Contact Information Discharge Discharge [address]: [address] [place] [address] Discharge Plan Discharge Items Patient Disposition: Home - Self-Care Reason For Visit: MAJOR DEPRESSIVE DISORDER Discharge Diagnosis: Acute Stress Reaction Activity: Resume your previous activity Non-emergency contact: Therapist Call non-emergency contact if: your symptoms worsen Follow-up/Referrals: PCP,NO [Primary Care Provider] - Diet: Regular Addtl Attending Provider Instructions: Remember that alcohol lowers inhibition and causes (or worsens) depression. Our recommendation is to stop drinking. Pending Studies at Discharge: No Stand-Alone Forms: My [employer], Smoking Cessation Medications and DC Order Prescriptions: Continued omeprazole 20 mg capsule,delayed release(DR/EC) 20 mg PO DAILY RF: 0 Discharge Orders: Discharge Order (Routine); Ordered 09/28/19 Ordered By: Reinaldo Plaza Admission Data Admit Date/Time: 09/26/19 11:03 Attending Provider: Zulema Rodriges Admit Provider: Zulema Rodriges Primary Care Provider: PCP,NO Other Interventions: Discharge Summary Assessment (RN) Last Done: 09/28/19 12:04 PSY Interdisciplinary Discharge Planning Last Done: 09/28/19 12:03 DC Date/Time DO NOT enter until pt leaves facility: 09/28/19 13:35 C[place] [address] D/C day mgmt > 30 min Patient Type Established History Expanded Problem Focused Exam Expanded Problem Focused Medical Decision Making Moderate Complexity Diagnoses Suicidal thoughts R45.851 Depression F33.2 Active/Remission status: currently active Depression Type: major depressive disorder Major depression episode severity: severe Major depression recurrence: recurrent Psychotic features: without psychotic features Alcohol dependence F10.20 Hypertension I10 Tobacco use Z72.0 Time Spent (min) 55
== END 2019-09-28 13:35 | disposition home or self-care (01) | DRG 885 ==
LOC: 3S 11:03

== ENCOUNTER 2020-01-03 14:18 | Inpatient (IN) ==
--- NOTE | 2020-01-03 14:46 | Emergency Department Note ---
Impression & Plan Alcohol withdrawal, Suicidal ideations, Alcohol dependence, Depression Allergies Allergies Allergy/AdvReac Type Severity Reaction Status Date / Time No Known Allergies Allergy Verified 11/18/19 21:46 Home Meds Home Medications Medication Instructions Recorded Confirmed omeprazole 20 mg PO DAILY 09/24/19 01/03/20 ED Provider Note NAME: ROBI WREN AGE: 59 SEX: M ARRIVES VIA: Ambulance INFORMANT: Patient, ED PROVIDER(S): Galen Rangel MD MEDICAL DECISION MAKING: The patient is a 59-year-old gentleman with a past medical history of alcohol dependence, depression and suicidal ideation who presents emergency department after having a welfare check by police after his rehab facility from which she was discharged on after a 21-day admission for detox was concerned when they were unable to contact him. Upon arrival the patient the police found him intoxicated and making suicidal statements and there was report that the patient even attempted to go for his rifle to act out his suicidal ideation. The police filed a 302 petition given this concern and describes that the patient had a dramatic abrupt change in affect where he became confrontational. Additionally when they examined the rifle they noted that it was loaded. The patient denies any medical complaints including denies chest pain, shortness of breath, nausea, vomiting, diarrhea, cough, congestion, fevers. On arrival the patient is mildly intoxicated melancholy appearing in no acute distress, afebrile with stable vital signs. He has no focal neuro deficits. There are no signs of trauma. WBC and platelets within normal limits. H/H 18/49 similar to prior prior range of values and likely with a component of hemoconcentration consistent with the patient's clinical dry appearance. Chemistry without acidosis. AST 44 and LFTs otherwise unremarkable. UA negative for infection. Drug screen negative. Blood alcohol 302. The patient's alcohol level we were unable to disposition the patient's 302 warrant at this time and were awaiting for the patient to metabolize to a level of 100 per [facility] requirements. During this process the patient began to exhibit symptoms of alcohol withdrawal with increased irritability and restlessness. Patient was ordered for a saline lock, banana bag and initial IM dose of Ativan. Thus, reasonable to admit the patient for alcohol withdrawal in order to medically clear the patient to ultimately disposition the patient's 302 warrant. Given the patient was found with a loaded rifle is certainly should be strongly considered to uphold the patient's 302 warrant given his high risk and impulsive thoughts and behavior, despite his report to me that he would sign in voluntarily. Case was discussed with Hayde Aguirre, who evaluate the patient for admission. Triage Nursing notes reviewed and agree them. Additional history obtained from 302 petition/warrant Prior medical records reviewed Vital Signs: reviewed and remarkable for hypertension Differential diagnosis: Mood disorder, infection, hypoglycemia, electrolyte abnormalities, cardiac sources, intracerebral event, toxicologic, trauma, neurologic, as well as other pathologies. ER treatment provided: See below Laboratory studies: See below Consultation(s): Case was discussed with Hayde Aguirre, who evaluate the patient for admission. HPI: The patient is a 59-year-old gentleman with a past medical history of alcohol dependence, depression and suicidal ideation who presents emergency department after having a welfare check by police after his rehab facility from which she was discharged on after a 21-day admission for detox was co ncerned when they were unable to contact him. Upon arrival the patient the police found him intoxicated and making suicidal statements and there was report that the patient even attempted to go for his rifle to act out his suicidal ideation. The police filed a 302 petition given this concern and describes that the patient had a dramatic abrupt change in affect where he became confrontational. Additionally when they examined the rifle they noted that it was loaded. The patient denies any medical complaints including denies chest pain, shortness of breath, nausea, vomiting, diarrhea, cough, congestion, fevers. ROS: See above HPI for pertinent positives & negatives. A total of 10 systems reviewed and were otherwise negative. PAST MEDICAL HISTORY:See Below PAST SURGICAL HISTORY:See Below FAMILY HISTORY:See Below SOCIAL HISTORY:See Below HOME MEDICATIONS:See Below ALLERGIES:See Below VITALS:See Below PHYSICAL EXAMINATION: GENERAL: Awake, alert, intoxicated and melancholy-appearing, in no distress HENT: Normocephalic, atraumatic. Oropharynx with dry mucous membranes and otherwise unremarkable. EYES: Normal conjunctiva. Sclera non-icteric. NECK: Supple. No nuchal rigidity. FROM. No JVD. RESPIRATORY: Clear to auscultation. CARDIAC: Regular rate, normal rhythm. Extremities warm and well perfused. Pulses equal. ABDOMEN: Soft, non-distended. No tenderness to palpation. No rebound or guarding. No masses. RECTAL: Deferred. MUSCULOSKELETAL: Chest examination reveals no tenderness. The back is symmetrical on inspection without obvious abnormality. There is no CVA tenderness to palpation. No joint edema. LOWER EXTREMITIES: Calves are equal size bilaterally and non-tender. No edema. No discoloration. NEURO: Normal sensorium. No sensory or motor deficits noted. Normal reflexes no clonus. SKIN: No rash or jaundice noted. PSYCH: Positive SI and depression. Positive alcohol abuse/dependence. Denies auditory hallucinations. Galen Rangel MD Past Med/Surg History Medical History Alcohol dependence Depression GERD (gastroesophageal reflux disease) Smoker Suicidal thoughts Surgical History No history of previous surgery Family History Father , age 70 from [place] Coronary heart disease Social History Preferred Language: Faroese Communication Ability: Effective Marine Extension Agent Required: No Beliefs That Will Affect Care: Anabaptism Anabaptism Beliefs: n/a marital status: Current Living Situation: Other Current Living Situation Comment: Lives with several other men in same house Feels Safe at Home: Yes Smoking Status: Current every day smoker Tobacco Type: cigarettes ; Second Hand Exposure: Yes ; Hx Alcohol Use: Yes Alcohol type: beer Hx Substance Use: No Results & Data (ED) Vital Signs Vital Signs - 24 hr 01/03/20 14:10 01/03/20 16:10 01/03/20 17:53 Temperature 36.9 C Temperature Source Oral Pulse Rate 83 Pulse Rate [Apical] 75 82 Pulse Rhythm Regular Pulse Rhythm [Apical] Pulse Strength Normal Pulse Strength [Apical] Respiratory Rate 20 18 20 Respiratory Effort / Characteristics Non-Labored Spontaneous Respiratory Depth Normal Respiratory Pattern Regular Blood Pressure 173/96 H Blood Pressure [Left Arm] 160/78 H 178/93 H Blood Pressure Mean 121 Blood Pressure Mean [Left Arm] 105 121 Blood Pressure Position Sitting Blood Pressure Position [Left Arm] Pulse Oximetry 94 97 95 Oxygen Delivery Method Room Air Room Air Sepsis Recent Fever Within 48 Hours No Sepsis New/Unexplained Change in Mental Status No Sepsis Action Taken by Nursing No Action Required 01/03/20 19:09 01/03/20 20:35 Temperature 36.4 C L 36.6 C Temperature Source Oral Oral Pulse Rate Pulse Rate [Apical] 90 95 H Pulse Rhythm Pulse Rhythm [Apical] Regular Regular Pulse Strength Pulse Strength [Apical] Normal Normal Respiratory Rate 22 22 Respiratory Effort / Characteristics Non-Labored Spontaneous Respiratory Depth Normal Respiratory Pattern Regular Blood Pressure Blood Pressure [Left Arm] 170/82 H 180/82 H Blood Pressure Mean Blood Pressure Mean [Left Arm] 111 114 Blood Pressure Position Blood Pressure Position [Left Arm] Lying Lying Pulse Oximetry 92 94 Oxygen Delivery Method Room Air Room Air Sepsis Recent Fever Within 48 Hours Sepsis New/Unexplained Change in Mental Status Sepsis Action Taken by Nursing Laboratory Data Attestation: I reviewed the patient's lab results. Result diagrams: 01/03/20 15:09 01/03/20 15:09 Lab Results 01/03/20 01/03/20 01/03/20 Range/Units 15:02 15:02 15:09 WBC 4.85 (4.8-10.8) K/uL RBC 5.56 (4.7-6.1) M/uL Hgb 18.1 H (14.0-18.0) g/dL Hct 49.6 (42-52) % MCV 89.2 (80-100) fL MCH 32.6 (25-34) pg MCHC 36.5 H (32-36) g/dL RDW Std Deviation 38.2 (36.4-46.3) fL RDW Coeff of [place]oy 11.8 (11.5-14.5) % Plt Count 239 (130-400) K/uL MPV 9.8 (7.4-10.4) fL Neutrophils % (Manual) 37.7 % Lymphocytes % (Manual) 40.3 % Reactive Lymphs % (Man) 12.3 % Monocytes % (Manual) 4.4 % Eosinophils % (Manual) 4.4 % Basophils % (Manual) 0.9 % Neutrophils # (Manual) 1.83 (1.4-6.5) K/uL Total Absolute Neuts 1.83 (1.4-6.5) K/uL Lymphocytes # (Manual) 1.95 (1.2-3.4) K/uL Reactive Lymphs # 0.60 K/uL Total Abs Lymphocytes 2.55 (1.2-3.4) K/uL Monocytes # (Manual) 0.21 (0.11-0.59) K/uL Eosinophils # (Manual) 0.21 (0-0.5) K/uL Basophils # (Manual) 0.04 (0-0.2) K/uL Sodium (136-145) mmol/L Potassium (3.5-5.1) mmol/L Chloride (98-107) mmol/L Carbon Dioxide (21-32) mmol/L Anion Gap (3-11) BUN (7-18) mg/dl Creatinine (0.6-1.4) mg/dl Est Cr Clr Drug Dosing ml/min Est GFR ( Amer) Est GFR (Non-Af Amer) BUN/Creatinine Ratio (10-20) Glucose (70-99) mg/dl Calcium (8.5-10.1) mg/dl Phosphorus (2.5-4.9) mg/dl Magnesium (1.8-2.4) mg/dl Total Bilirubin (0.2-1) mg/dl AST (15-37) U/L ALT (12-78) U/L Alkaline Phosphatase (45-117) U/L Total Protein (6.4-8.2) gm/dl Albumin (3.4-5.0) gm/dl Globulin (2.5-4.0) gm/dl Albumin/Globulin Ratio (0.9-2) TSH (0.300-4.500) uIu/ml Urine Color Yellow Urine Appearance Clear (Clear) Urine pH 6.0 (4.5-7.5) Ur Specific [place] 1.007 (1.000-1.030) Urine Protein Negative (Negative) Urine Glucose (UA) Negative (Negative) Urine Ketones Negative (Negative) Urine Blood Negative (Negative) Urine Nitrite Negative (Negative) Urine Bilirubin Negative (Negative) Urine Urobilinogen Negative (Negative) Ur Leukocyte Esterase Negative (Negative) Salicylates (2.8-20) mg/dl Urine Opiates Screen Neg (Neg) Ur Methadone, Qual Neg (Neg) Acetaminophen (10-30) ug/ml Urine Barbiturates Neg (Neg) Ur Phencyclidine (PCP) Neg (Neg) U Amphetamin/Meth Scrn Neg (Neg) MDMA (Ecstasy) Screen Neg (Neg) U Benzodiazepines Scrn Neg (Neg) Ur Cocaine Metabolite Neg (Neg) U Marijuana (THC) Screen Neg (Neg) Ethyl Alcohol mg/dL (0-3) mg/dl 01/03/20 01/03/20 01/03/20 Range/Units 15:09 15:09 15:09 WBC (4.8-10.8) K/uL RBC (4.7-6.1) M/uL Hgb (14.0-18.0) g/dL Hct (42-52) % MCV (80-100) fL MCH (25-34) pg MCHC (32-36) g/dL RDW Std Deviation (36.4-46.3) fL RDW Coeff of [place]oy (11.5-14.5) % Plt Count (130-400) K/uL MPV (7.4-10.4) fL Neutrophils % (Manual) % Lymphocytes % (Manual) % Reactive Lymphs % (Man) % Monocytes % (Manual) % Eosinophils % (Manual) % Basophils % (Manual) % Neutrophils # (Manual) (1.4-6.5) K/uL Total Absolute Neuts (1.4-6.5) K/uL Lymphocytes # (Manual) (1.2-3.4) K/uL Reactive Lymphs # K/uL Total Abs Lymphocytes (1.2-3.4) K/uL Monocytes # (Manual) (0.11-0.59) K/uL Eosinophils # (Manual) (0-0.5) K/uL Basophils # (Manual) (0-0.2) K/uL Sodium 137 (136-145) mmol/L Potassium 3.6 (3.5-5.1) mmol/L Chloride 105 (98-107) mmol/L Carbon Dioxide 27 (21-32) mmol/L Anion Gap 5.0 (3-11) BUN 7 (7-18) mg/dl Creatinine 0.98 (0.6-1.4) mg/dl Est Cr Clr Drug Dosing 95.1 ml/min Est GFR ( Amer) 97.4 Est GFR (Non-Af Amer) 84.1 BUN/Creatinine Ratio 7.4 L (10-20) Glucose 118 H (70-99) mg/dl Calcium 8.4 L (8.5-10.1) mg/dl Phosphorus 2.9 (2.5-4.9) mg/dl Magnesium 2.6 H (1.8-2.4) mg/dl Total Bilirubin 0.6 (0.2-1) mg/dl AST 44 H (15-37) U/L ALT 68 (12-78) U/L Alkaline Phosphatase 88 (45-117) U/L Total Protein 8.3 H (6.4-8.2) gm/dl Albumin 4.4 (3.4-5.0) gm/dl Globulin 3.9 (2.5-4.0) gm/dl Albumin/Globulin Ratio 1.1 (0.9-2) TSH 1.210 (0.300-4.500) uIu/ml Urine Color Urine Appearance (Clear) Urine pH (4.5-7.5) Ur Specific [place] (1.000-1.030) Urine Protein (Negative) Urine Glucose (UA) (Negative) Urine Ketones (Negative) Urine Blood (Negative) Urine Nitrite (Negative) Urine Bilirubin (Negative) Urine Urobilinogen (Negative) Ur Leukocyte Esterase (Negative) Salicylates < 1.7 L (2.8-20) mg/dl Urine Opiates Screen (Neg) Ur Methadone, Qual (Neg) Acetaminophen < 2 L (10-30) ug/ml Urine Barbiturates (Neg) Ur Phencyclidine (PCP) (Neg) U Amphetamin/Meth Scrn (Neg) MDMA (Ecstasy) Screen (Neg) U Benzodiazepines Scrn (Neg) Ur Cocaine Metabolite (Neg) U Marijuana (THC) Screen (Neg) Ethyl Alcohol mg/dL 302.4 H (0-3) mg/dl Administered Medications Discontinued Medications Multivitamins 10 ml/ Thiamine HCl 100 mg/ Folic Acid 1 mg/Sodium Chloride 1,011.2 mls @ 1,011.2 mls/hr IV .Q1H ONE Stop: 01/03/20 20:09 Last Infusion: 01/03/20 20:51 Dose: 0 mls/hr Documented by: [id number] Admin: 01/03/20 19:48 Dose: 1,011.2 mls/hr Documented by: [id number] Lorazepam (Ativan) 1 mg in 2 mls @ 2 mls/min IV NOW STA Stop: 01/03/20 20:25 Last Admin: 01/03/20 20:34 Dose: 2 mls/min Documented by: [id number] Lorazepam (Ativan) 2 mg IM NOW STA Stop: 01/03/20 19:06 Last Admin: 01/03/20 19:16 Dose: 2 mg Documented by: [id number] Blood Pressure Blood Pressure Findings: Elevated blood pressure Blood Pressure Disposition: elevated BP felt to be situational Discharge Plan Visit Data Chief Complaint: Alcohol Intoxication ED Provider: Galen Rangel Discharge Problem: Alcohol withdrawal, Suicidal ideations, Alcohol dependence, Depression Discharge Instructions Interventions: ED Discharge Assessment Last Done: 01/03/20 20:48 Forms Stand Alone Forms: AddIn Social Prescriptions Prescriptions: No Action omeprazole 20 mg capsule,delayed release(DR/EC) 20 mg PO DAILY RF: 0 Referrals Referrals: PCP,NO [Primary Care Provider] - Discharge Problem: Alcohol withdrawal Qualifiers: Complication of substance-induced condition: with unspecified complication Qualified Code(s): F10.239 - Alcohol dependence with withdrawal, unspecified Alcohol dependence Qualifiers: Substance use status: unspecified alcohol-induced disorder Qualified Code(s): F10.29 - Alcohol dependence with unspecified alcohol-induced disorder
[2020-01-03 15:22] LABS: Appearance Urine Clear (Clear); Bilirubin Urine Negative (Negative); Blood Urine Negative (Negative); Color Urine Yellow; Glucose Urine UA Negative (Negative); Ketones Urine Negative (Negative); Leukocyte Esterase Urine Negative (Negative); Nitrite Urine Negative (Negative); Protein Urine Negative (Negative); Specific Gravity Urine 1.007 (1.000-1.030); Urobilinogen Urine Negative (Negative)
[2020-01-03 15:25] LABS: Hematocrit (blood only) 49.6 % (42-52); Hemoglobin 18.1 g/dL (14.0-18.0); Mean Corpuscular Hemoglobin 32.6 pg (25-34); Mean Corpuscular Hgb Conc 36.5 g/dL (32-36); Mean Corpuscular Volume 89.2 fL (80-100); Mean Platelet Volume 9.8 fL (7.4-10.4); Platelet Count 239 K/uL (130-400); RDW Coefficient of Variation 11.8 % (11.5-14.5); RDW Standard Deviation 38.2 fL (36.4-46.3); Red Blood Count 5.56 M/uL (4.7-6.1); White Blood Count 4.85 K/uL (4.8-10.8)
[2020-01-03 15:39] LABS: Amphetamines+Metham, Urine Neg (Neg); Barbiturates, Urine Neg (Neg); Benzodiazepine, Urine Neg (Neg); Cocaine, Urine Neg (Neg); MDMA (Ecstacy), Urine Neg (Neg); Methadone, Urine Neg (Neg); Opiate, Urine Neg (Neg); Phencyclidine, Urine Neg (Neg)
[2020-01-03 15:51] LABS: ALC (manual) 2.55 K/uL (1.2-3.4); ANC (manual) 1.83 K/uL (1.4-6.5); Albumin Level 4.4 gm/dl (3.4-5.0); BUN Creatinine Ratio 7.4 (10-20); Basophils # (manual) 0.04 K/uL (0-0.2); Basophils % (manual) 0.9 %; Calcium 8.4 mg/dl (8.5-10.1); Creatinine Clr Calc Pharmacy 95.1 ml/min; Eosinophils # (manual) 0.21 K/uL (0-0.5); Eosinophils % (manual) 4.4 %; Est GFR (African American) 97.4; Est GFR (Non-African American) 84.1; Lymphocytes # (manual) 1.95 K/uL (1.2-3.4); Lymphocytes % (manual) 40.3 %; Magnesium 2.6 mg/dl (1.8-2.4); Monocytes # (manual) 0.21 K/uL (0.11-0.59); Monocytes % (manual) 4.4 %; Neutrophils # (manual) 1.83 K/uL (1.4-6.5); Neutrophils % (manual) 37.7 %; Potassium 3.6 mmol/L (3.5-5.1); Reactive Lymphocytes % (manual) 12.3 %
[2020-01-03 15:57] LABS: Acetaminophen < 2 ug/ml (10-30); Salicylate < 1.7 mg/dl (2.8-20)
[2020-01-03 16:02] LABS: Albumin Globulin Ratio 1.1 (0.9-2); Bilirubin,Total 0.6 mg/dl (0.2-1); Globulin 3.9 gm/dl (2.5-4.0); Phosphorus 2.9 mg/dl (2.5-4.9); Thyroid Stimulating Hormone 1.21 uIu/ml (0.300-4.500); Total Protein 8.3 gm/dl (6.4-8.2)
[2020-01-03] MEDS ORDERED: LORazepam 2 MG/ML VIAL (IM USE) IM STA (19:05)
[2020-01-03] MEDS ORDERED: MULTI-VITAMIN INFUSION 10 ML, THIAMINE HCL 100 MG, FOLIC ACID 1 MG in SODIUM CHLORIDE 0... IV ONE (19:10)
--- NOTE | 2020-01-03 19:57 | History & Physical Report ---
Date of Service January 03, 2020 Assessment & Plan (1) Alcohol withdrawal: Pt is 59 y/o M with PMH depression, prior suicidal ideations, alcohol abuse, tobacco use presented to ER with police for alcohol intoxication and suicidal ideations Reported released from rehab one week ago In ER afebrile, P: 90, R: 22, BP: 170/82, 94% on RA ETOH: 302 -In ER pt becoming anxious and was given Ativan 2mg IM, Banana bag ordered -Alcohol withdrawal protocol with gabapentin, Ativan -BP noted to be elevated, may be secondary to withdrawal, monitor -Would recommend ETOH cessation discussion and possible rehab when pt no longer intoxicated to further discuss (2) Suicidal ideations: H/O Depression and Suicidal Ideations Reported by police pt saying wants to and tried to get his gun. Police filed 302 -One to one observation -Psych consult (3) GERD (gastroesophageal reflux disease): -Continue PPI (4) Tobacco use: -Nicotine patch -Would recommend tobacco cessation discussion when pt no longer intoxicated DVT Prophylaxis -Lovenox SQ Admit tele floor with plans for probable psych admission for suicidal ideations Does not follow PCP for routine care Pt was seen and care coordinated with Dr Del Rio. See addendum for further assessment and plan and PE. History of Present Illness Chief Complaint: Suicidal ideation, ETOH intoxication Primary Care Provider: NO PCP Pt is 59 y/o M with PMH depression, prior suicidal ideations, alcohol abuse, tobacco use presented to ER for alcohol intoxication and suicidal ideation. History obtained from ER staff has minimal history can be obtained from patient secondary to his unwillingness to speak with this provider. It is reported that patient was discharged from rehab last week. It is reported rehab attempted to contact patient and he did not answer and the police were summoned to his house and found him intoxicated and making statements that he wanted to . It is reported that the patient try to retrieve a gun while police were at his house. The police are filing a 302 petition. In ER patient with EtOH level: 302. Patient tearful and becoming anxious and was given Ativan 2 mg IM and banana bag ordered. Patient states "I want to , I'd be better off ". Patient refuses to discuss anything further. Allergies Allergy/AdvReac Type Severity Reaction Status Date / Time No Known Allergies Allergy Verified 11/18/19 21:46 Home Medications Home Medications Medication Instructions Recorded Confirmed Type omeprazole 20 mg PO DAILY 09/24/19 01/03/20 History Past Med/Surg History Medical History Alcohol dependence Depression GERD (gastroesophageal reflux disease) Smoker Suicidal thoughts Surgical History No history of previous surgery Family History Father , age 70 from [place] Coronary heart disease Social History Preferred Language: Kyrgyz Communication Ability: Effective Borough Coordinator Required: No Beliefs That Will Affect Care: Cheondoism Cheondoism Beliefs: n/a marital status: Current Living Situation: Alone Current Living Situation Comment: Lives with several other men in same house Other Information That Helps Us Care for You: No Feels Safe at Home: Hesitant to Answer Smoking Status: Current every day smoker Tobacco Type: cigarettes ; Do You Dip or Chew Tobacco: Yes ; Second Hand Exposure: Yes ; Tobacco Cessation Education Requested by Patient: No Hx Alcohol Use: Yes Alcohol type: beer Hx Substance Use: No Review of Systems Review of Systems: Unable to obtain secondary to patient's noncooperation Physical Exam Physical Exam: General: +anxious appearing, tearful, WDWN +ETOH odor on breath Pt refuses PE from this provider Results & Data Results & Data ([facility]) Vital Signs (Past 12 Hours) Vital Signs Temp Pulse Pulse Resp BP BP Pulse Ox 01/03/20 19:09 36.4 C L 90 22 170/82 H 92 01/03/20 17:53 82 20 178/93 H 95 01/03/20 16:10 75 18 160/78 H 97 01/03/20 14:10 36.9 C 83 20 173/96 H 94 Laboratory Results Short CBC 01/03/20 Range/Units 15:09 WBC 4.85 (4.8-10.8) K/uL Hgb 18.1 H (14.0-18.0) g/dL Hct 49.6 (42-52) % Plt Count 239 (130-400) K/uL BMP 01/03/20 15:09 Sodium 137 Potassium 3.6 Chloride 105 Carbon Dioxide 27 BUN 7 Creatinine 0.98 Glucose 118 H Calcium 8.4 L Liver Function 01/03/20 Range/Units 15:09 Total Bilirubin 0.6 (0.2-1) mg/dl AST 44 H (15-37) U/L ALT 68 (12-78) U/L Alkaline Phosphatase 88 (45-117) U/L Albumin 4.4 (3.4-5.0) gm/dl Urine 01/03/20 Range/Units 15:02 Urine Color Yellow Urine Appearance Clear (Clear) Urine pH 6.0 (4.5-7.5) Ur Specific [place] 1.007 (1.000-1.030) Urine Protein Negative (Negative) Urine Glucose (UA) Negative (Negative) Supervising Physician Co-Signing Physician Notes Care coordinated with Camila Morris PA-C. Agree with above note. Patient seen and examined. Please refer to her notes for full details. Vital signs reviewed. Physical exam: General exam: Alert and awake. tearful.. Not in acute distress. CVS: S1 and S2 heard, regular rate and rhythm, no murmurs. RS: Clear to auscultation, no wheezing or crackles. ABD: Soft, bowel sounds present, nontender, no distention. MANAGER STAR: Nonfocal. EXT: No edema, no erythema. Labs: Reviewed. Assessment and plan: 59 M with hx of alcoholism and suicidal ideations was in hospital in September with same issues and was discharged to rehab for detox. Was discharged from detox last and on followup calls patient was not answering. So clinical technician were summoned to his house and he was found inebriated with alcohol and was threatening to kill him self. [employer] petitioned 302 and brought him to ER. Currently crying and asks to help with his anxiety and depression. Says drinking a lot. Smokes few cigarettes. Denies any chest pain or sob. No nausea. NO headaches. No cough. No fevers. Alcoholism monitor for withdrawal banana bag iv thiamine and folic acid gabapentin withdrawal protocol iv ativan prn Suicidal ideation one one suicidal precautions psychiatry consult Other diagnosis and plan of care as per Camila Morris PA-C. Kahlil boles MD.
[2020-01-03] MEDS ORDERED: LORazepam 1 MG/2 ML VIAL IV STA (20:24)
[2020-01-03] MEDS ORDERED: ONDANSETRON INJ 2 MG/ML 2 ML VIAL IV PRN (20:58)
[2020-01-03] MEDS ORDERED: LORazepam 3 MG/6 ML VIAL IV PRN (20:58)
[2020-01-03] MEDS ORDERED: GABAPENTIN 1200MG ALCOHOL WITHDRAWAL LOAD PO STA (20:58)
[2020-01-03] MEDS ORDERED: ATIVAN IV ALCOHOL WITHDRAWL IV PRN (20:58)
[2020-01-03] MEDS ORDERED: ACETAMINOPHEN 325 MG TAB PO PRN (20:58)
[2020-01-03] MEDS ORDERED: GABAPENTIN 600 MG TAB PO SCH (22:00)
[2020-01-03] MEDS: ENOXAPARIN INJ 40 MG/0.4 ML SYR SQ SCH (22:03)
[2020-01-03] MEDS: LORazepam 1 MG/2 ML VIAL IV PRN (22:03)
[2020-01-03] MEDS: FOLIC ACID 1 MG TAB PO SCH (22:04)
[2020-01-03] MEDS: NICOTINE 21 MG/24 HR TDSY TD SCH (22:05)
[2020-01-03] MEDS: THIAMINE HCL 100 MG TAB PO SCH (22:05)
[2020-01-04] MEDS: GABAPENTIN 600 MG TAB PO SCH ×4 (03:44→23:56)
[2020-01-04] MEDS: LORazepam 1 MG/2 ML VIAL IV PRN (03:44)
[2020-01-04 06:20] LABS: Hemoglobin 15.8 g/dL (14.0-18.0); Mean Corpuscular Hemoglobin 32.7 pg (25-34); Mean Corpuscular Hgb Conc 35.9 g/dL (32-36); Mean Corpuscular Volume 91.1 fL (80-100); Mean Platelet Volume 9.8 fL (7.4-10.4); Platelet Count 194 K/uL (130-400); RDW Coefficient of Variation 11.8 % (11.5-14.5); Red Blood Count 4.83 M/uL (4.7-6.1); White Blood Count 4.57 K/uL (4.8-10.8)
[2020-01-04 06:58] LABS: BUN Creatinine Ratio 8.1 (10-20); Creatinine Clr Calc Pharmacy 93.9 ml/min; Est GFR (African American) 99.9; Est GFR (Non-African American) 86.2; Phosphorus 2.6 mg/dl (2.5-4.9); Potassium 3.5 mmol/L (3.5-5.1)
[2020-01-04] MEDS: PANTOprazole 40 MG TAB PO SCH (08:31)
[2020-01-04] MEDS: FOLIC ACID 1 MG TAB PO SCH (08:32)
[2020-01-04] MEDS: MULTIVITAMIN TAB PO SCH (08:32)
[2020-01-04] MEDS: THIAMINE HCL 100 MG TAB PO SCH (08:32)
[2020-01-04] MEDS: NICOTINE 21 MG/24 HR TDSY TD SCH ×2 (08:34→16:01)
--- NOTE | 2020-01-04 11:34 | Psychiatric Consultation ---
Date of Consultation January 04, 2020 Impression / Recommendations Impression Dr. Reinaldo Plaza was directly involved in review and discussion of the patient's case and participated in medical decision making regarding treatment recommendations. RECOMMENDATIONS: 01/03 - Continue medical treatment for anticipated alcohol withdrawal per primary team. Pt remains on 1:1 and suicide precautions. - Pt is on a 302 warrant, allowing him to be held in the hospital until psychiatric evaluation is completed and recommendations regarding level of psychiatric treatment can be rendered. Pt is not able to leave the hospital AMA. - Pt is agreeable at this time with inpatient psychiatric treatment after discharge, with plans for ongoing discussion regarding substance abuse treatment options - this is consistent with recommendations from our service for inpatient psychiatric treatment - Will attempt to coordinate with outpatient therapist and other providers through [facility] - No plans to initiated psychiatric medications during the acute withdrawal phase, due to increased risk of seizure. Will defer medication initiation to accepting psychiatric facility - Appreciate the opportunity to participate in the care of this patient. Please reach out to our service with any additional questions or updates Risk Factors Assessment Male: Yes : Yes Do You Have Access To A Gun?: Yes (loaded rifle found in his home) Health Problems: No Mental Health Diagnoses: Yes Substance Use Disorders: Yes Previous Attempt: No Previous Psychiatric Hospitalization: Yes Hopelessness: Yes Protective Factors Assessment Jehovah'S Witness Beliefs: Yes : No Responsible for Young Children: No Employed: No Stable Relationships: No Supportive Family: No Psych History Identifying Data 59-year-old male admitted medically on 01/03/2020 after being brought to the ED by police for alcohol intoxication and suicidality. Police completed a 302 warrant base on events observed while at the patient's residence, as patient had verbalized suicidal statement and had attempted to retrieve a loaded gun while in the presence of police. Psychiatric consultation is requested to evaluate patient for suicidality. Chief Complaint "[The police] came to check on me because I didn't show at the appointment I was supposed to be at." History of Present Illness Shadi Davalos is a 59-year-old male admitted medically on 01/03/2020 after being brought to the ED by police for alcohol intoxication and suicidality. Pt was reportedly discharged from [facility] last week, but began drinking again shortly after he returned home. It was reported that police were called to the patient's house to complete a wellness check. While at the patient's house, the police state the patient verbalized multiple suicidal statements, and even at one point attempted to get ahold of his loaded rifle. 302 Petitioning Statement was completed by Officer Neel with the [place] [employer], this statement reads: "[employer] Officers went to [place]'s residence on a welfare check. Inside the residence, [place] stated he "was glad" PD showed up because he was thinking of shooting himself. [place] was very intoxicated and crying. While I was speaking with [place], he suddenly changed his demeanor and attempted to push through me to get to a rifle on the other side of the room. [place]ican stated "it's better this way" (referring to the rifle). The rifle was found to be loaded with a round in the chamber." Pt is being treated by the primary team for alcohol withdrawal, his BAL was 302.4 in the ED at time of presentation. Psychiatric consultation was requested to evaluate the patient for his suicidality. Pt was cooperative with psychiatric evaluation. He does endorse police coming to his house to perform a wellness check, but claims he does not recall the events that followed. Pt states he has no memory of attempting to obtain his rifle, but states "I don't doubt it happened." Pt states that he has been experiencing daily episodes of SI, admitting to occurrence outside of the context of alcohol use as well. He states "they happen a lot. A lot, a lot, and not just with drinking. But they do get worse when I drink." Pt states that he had been receiving inpatient D&A treatment at [facility] since 12/05/2019 and claims "I think that just made it worse." He states that he went to rehab as "I was getting lonely. I wanted to go somewhere where I knew there would be people around, but that was a mistake." Pt states, "the day I left I started drinking again. I don't think rehab is for me." Pt states that he continues to have limited outpatient supports. Depression and hopelessness is also worsened by the fact that he has not been working since 11/09/2019. Pt states "I used to have things to distract me during the day. Now I just sit around and drink." Pt reports that he is filing for unemployment at this time. He continues to state that he has been receiving care intermittently through [facility]. Pt states that he has had 3-4 therapy sessions, a few in person and a few over the phone. He states he was restarted on Zoloft earlier in 2019, but that this medication was switched during his psychiatric hospitalization at [facility]. Pt is unable to recall which medication he was prescribed. He states after discharge from [facility] he returned to Zoloft 100mg and was continued on the medication through his 21-day rehab stay. He states that he stopped the medication 2 days ago, as he felt it was not effective. Pt continues to state "I'm not sure that any medication will work...unless it is something that will knock me out and let me sleep all day." Pt denies HI, SIB, A/V hallucinations, paranoia, jolanta/hypomania, other symptoms more suggestive of a bipolar presentation, OCD, PTSD, eating disorder, and other specific psychiatric symptoms. Past Psychiatric History Current Psychiatric Diagnosis: Depression, Alcohol dependence Outpatient Services: Reports a therapist through [email or web address], states medications have been provided by a PCP through [facility] Previous Psych Admissions: [place] - 2018 [facility] - 09/2019, suicidality and alcohol intoxication/withdrawal [facility] - 11/19/2019 Do You Have Access To A Gun?: Yes (loaded rifle found in his home) History of Previous Suicide Attempt: No Past Medication Trials: History of sertraline for ~35 years. Has historically reported the medication was beneficial for his depressive symptoms, but only within periods of sobriety. Allergies Allergy/AdvReac Type Severity Reaction Status Date / Time No Known Allergies Allergy Verified 11/18/19 21:46 Home Medications Home Medications Medication Instructions Recorded Confirmed Type omeprazole 20 mg PO DAILY 09/24/19 01/03/20 History Family History Reports family history of alcoholism and drug abuse. Denied known family history of psychiatric conditions. Substance Abuse History Pt admits to tobacco use. Pt states that he has been consuming between 20-30 cans of beer daily. Pt has reportedly been to inpatient D&A rehab ~9-10 times. Reports history of admissions at [facility] and [facility]. Pt had reportedly been discharged from rehab 1 week prior to this admission. 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 Patient History Medical History Alcohol dependence (Acute) Depression GERD (gastroesophageal reflux disease) Smoker Suicidal thoughts (Acute) Surgical History No history of previous surgery Family History Father , age 70 from [place] Coronary heart disease Social History Preferred Language: [place] Communication Ability: Effective [employer] Required: No Beliefs That Will Affect Care: Jehovah'S Witness Jehovah'S Witness Beliefs: n/a marital status: Current Living Situation: Alone Current Living Situation Comment: Lives with several other men in same house Other Information That Helps Us Care for You: No Feels Safe at Home: Hesitant to Answer Smoking Status: Current every day smoker Tobacco Type: cigarettes ; Do You Dip or Chew Tobacco: Yes ; Second Hand Exposure: Yes ; Tobacco Cessation Education Requested by Patient: No Hx Alcohol Use: Yes Alcohol type: beer Hx Substance Use: No Physical Exam Psychiatric: Orientation: alert, oriented x 3 and cooperative Apperance: appropriately dressed and + disheveled Mildly overweight appearing male, laying in bed - appearing restless, but in no acute distress. Pt is appropriately dressed for situation, wearing paper scrubs - top is torn down the middle. He does have facial stubble and is appearing somewhat unkempt, though level of hygiene seems adequate. Eye Contact: + fair eye contact (intermittently avoiding direct eye contact ) Motor Behavior: + psychomotor agitation (appearing restless) and + tremor Speech: normal rate/rhythm/volume of speech (soft volume) Affect: + depressed affect, + tearful affect and mood congruent with affect Mood: + depressed mood Thought Process: goal directed thought process, clear/coherent thought process and thought association intact Thought Content: reality based without delusions, + hopelessness, + loneliness, + guilt and + self deprecation Suicidal Thoughts: + reports suicidal thoughts and + reports suicidal intent Report suicidal ideation, occurring daily even when not under the influence of alcohol. Did have an act of furtherance by attempting to get access to his loaded rifle while police were at his home. Homicidal Thoughts: denies homicidal thoughts Hallucinations: no auditory hallucinations and no visual hallucinations Cognition: attention grossly intact and language grossly intact Insight: + fair insight Judgement: + fair judgement Vital Signs (Past 24 Hours): Last Vital Signs Temp 36.4 C L 01/04/20 07:00 Pulse 82 01/04/20 07:31 Resp 20 01/04/20 07:00 BP 163/97 H 01/04/20 07:00 Pulse Ox 95 01/04/20 07:00 Review of Systems Constitutional: denies any present symptoms related to alcohol withdrawal Cardiovascular: denied Respiratory: denied Gastrointestinal: denied Neurological: denied Psychiatric: denies symptoms other than stated above Total of at least 10 systems reviewed, pertinent positives as above and in HPI. Results & Data (PSY) Medications Administered Enoxaparin Sodium (Lovenox) 40 mg SQ Q24H [facility] Stop: 02/02/20 21:59 Last Admin: 01/03/20 22:03 Dose: 40 mg Documented by: [id number] Folic Acid (Folvite) 1 mg PO QAM [facility] Stop: 02/02/20 21:59 Last Admin: 01/04/20 08:32 Dose: 1 mg Documented by: [id number] Admin: 01/03/20 22:04 Dose: 1 mg Documented by: [id number] Lorazepam (Ativan) 1 mg in 2 mls @ 0.5 mls/min IV Q4H PRN PRN Reason: Anxiety Stop: 02/02/20 20:57 Last Admin: 01/04/20 03:44 Dose: 0.5 mls/min Documented by: [id number] Admin: 01/03/20 22:03 Dose: 0.5 mls/min Documented by: [id number] Miscellaneous (Remove Nicoderm Patch) 1 ea N/A DAILY@0859 [facility] Stop: 02/03/20 08:58 Last Admin: 01/04/20 08:33 Dose: 1 ea Documented by: [id number] Multivitamins (Multivitamin Tab) 1 tab PO QAM [facility] Stop: 02/03/20 08:59 Last Admin: 01/04/20 08:32 Dose: 1 tab Documented by: [id number] Nicotine (Nicoderm Cq) 21 mg TD QAM [facility] Stop: 02/02/20 21:59 Last Admin: 01/04/20 08:34 Dose: Not Given Documented by: [id number] Admin: 01/03/20 22:05 Dose: 21 mg Documented by: [id number] Pantoprazole Sodium (Protonix) 40 mg PO DAILY [facility] Stop: 02/03/20 08:59 Last Admin: 01/04/20 08:31 Dose: 40 mg Documented by: [id number] Thiamine HCl (Vitamin B-1) 100 mg PO QAM [facility] Stop: 02/02/20 21:59 Last Admin: 01/04/20 08:32 Dose: 100 mg Documented by: [id number] Admin: 01/03/20 22:05 Dose: 100 mg Documented by: [id number] Coding Level of Care Code 37150 [facility] Intl Hosp Care Lvl 3
[2020-01-04] MEDS: LORazepam 2 MG/4 ML VIAL IV PRN ×2 (15:57→19:42)
--- NOTE | 2020-01-04 17:35 | Hospitalist Progress Note ---
Date of Service January 04, 2020 Assessment & Plan (1) Alcohol withdrawal: cont gabapentin and Ativan per protocol. Appears slightly anxious but no autonomic instability noted. Slightly hypertnsive. Cont to monitor and treat as needed. (2) Suicidal ideations: H/O Depression and Suicidal Ideations Reported by police pt saying wants to and tried to get his gun. Police filed 302 -One to one observation -Plans for inpatient mental health treatment following detoxification (3) GERD (gastroesophageal reflux disease): -Continue PPI per home regimen (4) Tobacco use: -Nicotine patch -tobacco cessation recommended (5) DVT prophylaxis: Lovenox Full Code Dispo-cont telemetry monitoring Celina Rayo DO [facility] Hospitalist Admission and Anticipated Discharge Date Admission Date: January 03, 2020 Anticipated date of discharge: 01/05/20 Subjective Pt admitted with SI and alcohol intoxication Reports drinking 20-30 beers daily Reports no h/o seizures Report history of detox in the past and feels he knows what to expect and "it won't be bad." Replies "I don't want to talk about that right now" when asked if he intends to stop drinking. Chews tobacco and smokes cigarettes. Nicotine patch is reportedly helping with this. Denies any other symptoms at this time. Feels the Ativan is helping him . Review of Systems Review of Systems: All systems reviewed & are unremarkable except as noted in Subjective Physical Exam Physical Exam: CONSTITUTIONAL: WNWD, vitals as above, generally well- appearing EYES: normal conjunctivae, no scleral icterus ENT: MMM RESPIRATORY: clear to auscultation bilaterally, no crackles, rales or wheezes, normal respiratory effort CARDIOVASCULAR: regular rate and rhythm, S1 and 2 heard without murmurs, gallops or rubs, no JVD, no peripheral edema GASTROINTESTINAL: soft, nontender, nondistended MUSCULOSKELETAL: strength 5/5 throughout, head is normocephalic and atraumatic SKIN: warm and dry NEUROLOGIC: CN 2-12 grossly intact, no sensory deficit, normal cognition, normal speech, no gross focal deficits. PSYCHIATRIC: alert cooperative and oriented to person, place and time. Results & Data Results & Data ([facility]) Vital Signs (Past 12 Hours) Vital Signs Temp Pulse Pulse Pulse Resp BP BP 01/04/20 16:12 68 16 151/92 H 01/04/20 16:00 80 211/121 H 01/04/20 11:41 36.5 C 78 18 178/97 H 01/04/20 07:31 82 01/04/20 07:00 36.4 C L 78 20 163/97 H 175/94 H Pulse Ox 01/04/20 16:12 94 01/04/20 16:00 01/04/20 11:41 95 01/04/20 07:31 01/04/20 07:00 95 Laboratory Results Short CBC 01/04/20 Range/Units 05:33 WBC 4.57 L (4.8-10.8) K/uL Hgb 15.8 (14.0-18.0) g/dL Hct 44.0 (42-52) % Plt Count 194 (130-400) K/uL BMP 01/04/20 05:33 Sodium 137 Potassium 3.5 Chloride 105 Carbon Dioxide 24 BUN 8 Creatinine 0.96 Glucose 100 H Calcium 8.0 L Medications Administered Current Inpatient Medications Acetaminophen (Tylenol) 650 mg PO Q4H PRN PRN Reason: Pain or Fever Stop: 02/02/20 20:57 Enoxaparin Sodium (Lovenox) 40 mg SQ Q24H [facility] Stop: 02/02/20 21:59 Last Admin: 01/03/20 22:03 Dose: 40 mg Documented by: Folic Acid (Folvite) 1 mg PO QAM [facility] Stop: 02/02/20 21:59 Last Admin: 01/04/20 08:32 Dose: 1 mg Documented by: Gabapentin (Neurontin) 600 mg PO Q8H [facility] Stop: 01/05/20 10:01 Gabapentin (Neurontin) 600 mg PO Q12H [facility] Stop: 01/06/20 10:01 Gabapentin (Neurontin) 600 mg PO Q24H [facility] Stop: 01/07/20 10:01 Lorazepam (Ativan) 1 mg in 2 mls @ 2 mls/min IV UD PRN; Protocol PRN Reason: EtOH Withdrawl AWSS Score 6,7 Stop: 02/02/20 20:57 Lorazepam (Ativan) 2 mg in 4 mls @ 4 mls/min IV UD PRN; Protocol PRN Reason: EtOH Withdrawl AWSS Score 8,9 Stop: 02/02/20 20:57 Last Admin: 01/04/20 15:57 Dose: 4 mls/min Documented by: Lorazepam (Ativan) 3 mg in 6 mls @ 4 mls/min IV ONCE PRN; Protocol PRN Reason: EtOH Withdrawl AWSS Score >=10 Stop: 02/02/20 20:57 Lorazepam (Ativan) 1 mg in 2 mls @ 0.5 mls/min IV Q4H PRN PRN Reason: Anxiety Stop: 02/02/20 20:57 Last Admin: 01/04/20 03:44 Dose: 0.5 mls/min Documented by: Miscellaneous (Remove Nicoderm Patch) 1 ea N/A DAILY@0859 [facility] Stop: 02/03/20 08:58 Last Admin: 01/04/20 08:33 Dose: 1 ea Documented by: Multivitamins (Multivitamin Tab) 1 tab PO [facility] Stop: 02/03/20 08:59 Last Admin: 01/04/20 08:32 Dose: 1 tab Documented by: Nicotine (Nicoderm Cq) 21 mg TD [facility] Stop: 02/02/20 21:59 Last Admin: 01/04/20 16:01 Dose: 21 mg Documented by: Ondansetron HCl (Zofran) 4 mg IV Q6H PRN PRN Reason: Nausea Stop: 02/02/20 20:57 Pantoprazole Sodium (Protonix) 40 mg PO DAILY [facility] Stop: 02/03/20 08:59 Last Admin: 01/04/20 08:31 Dose: 40 mg Documented by: Thiamine HCl (Vitamin B-1) 100 mg PO QAM [facility] Stop: 02/02/20 21:59 Last Admin: 01/04/20 08:32 Dose: 100 mg Documented by: (1) Alcohol withdrawal Complication of substance-induced condition: with unspecified complication Qualified Code(s): F10.239 - Alcohol dependence with withdrawal, unspecified
[2020-01-04] MEDS: ENOXAPARIN INJ 40 MG/0.4 ML SYR SQ SCH (21:24)
[2020-01-05] MEDS: LORazepam 2 MG/4 ML VIAL IV PRN ×2 (04:15→23:01)
[2020-01-05 06:03] LABS: Hematocrit (blood only) 46.7 % (42-52); Hemoglobin 16.9 g/dL (14.0-18.0); Mean Corpuscular Hgb Conc 36.2 g/dL (32-36); Mean Corpuscular Volume 91.2 fL (80-100); Mean Platelet Volume 9.9 fL (7.4-10.4); Platelet Count 185 K/uL (130-400); RDW Coefficient of Variation 11.7 % (11.5-14.5); RDW Standard Deviation 39.5 fL (36.4-46.3); Red Blood Count 5.12 M/uL (4.7-6.1); White Blood Count 4.62 K/uL (4.8-10.8)
[2020-01-05 06:39] LABS: BUN Creatinine Ratio 7.7 (10-20); Calcium 8.7 mg/dl (8.5-10.1); Creatinine Clr Calc Pharmacy 92.9 ml/min; Est GFR (African American) 99.9; Est GFR (Non-African American) 86.2; Magnesium 2.2 mg/dl (1.8-2.4); Potassium 3.1 mmol/L (3.5-5.1)
[2020-01-05] MEDS: PANTOprazole 40 MG TAB PO SCH (07:30)
[2020-01-05] MEDS: MULTIVITAMIN TAB PO SCH (07:30)
[2020-01-05] MEDS: FOLIC ACID 1 MG TAB PO SCH (07:30)
[2020-01-05] MEDS: THIAMINE HCL 100 MG TAB PO SCH (07:31)
[2020-01-05] MEDS: NICOTINE 21 MG/24 HR TDSY TD SCH (08:03)
[2020-01-05] MEDS: POTASSIUM CHLORIDE 20 MEQ TABCR PO SCH ×2 (09:11→14:20)
[2020-01-05] MEDS: GABAPENTIN 600 MG TAB PO SCH ×2 (09:11→21:54)
[2020-01-05] MEDS: LORazepam 1 MG/2 ML VIAL IV PRN ×2 (12:24→17:47)
[2020-01-05] MEDS ORDERED: lisinopriL 20 MG TAB PO STA (13:05)
--- NOTE | 2020-01-05 13:15 | Discharge Summary ---
Date of Service January 06, 2020 Admission HPI Per Admitting Provider Pt is 59 y/o M with PMH depression, prior suicidal ideations, alcohol abuse, tobacco use presented to ER for alcohol intoxication and suicidal ideation. History obtained from ER staff has minimal history can be obtained from patient secondary to his unwillingness to speak with this provider. It is reported that patient was discharged from rehab last week. It is reported rehab attempted to contact patient and he did not answer and the police were summoned to his house and found him intoxicated and making statements that he wanted to . It is reported that the patient try to retrieve a gun while police were at his house. The police are filing a 302 petition. In ER patient with EtOH level: 302. Patient tearful and becoming anxious and was given Ativan 2 mg IM and banana bag ordered. Patient states "I want to , I'd be better off ". Patient refuses to discuss anything further. Admission Exam Per Admitting Provider Physical exam: General exam: Alert and awake. tearful.. Not in acute distress. CVS: S1 and S2 heard, regular rate and rhythm, no murmurs. RS: Clear to auscultation, no wheezing or crackles. ABD: Soft, bowel sounds present, nontender, no distention. 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 EXT: No edema, no erythema. Principal Diagnosis Alcohol withdrawal Hypertension Depression with SI Discharge Exam CONSTITUTIONAL: WNWD, vitals as above, generally well-appearing EYES: normal conjunctivae, no scleral icterus ENT: MMM RESPIRATORY: clear to auscultation bilaterally, no crackles, rales or wheezes, normal respiratory effort CARDIOVASCULAR: regular rate and rhythm, S1 and 2 heard without murmurs, gallops or rubs, no JVD, no peripheral edema GASTROINTESTINAL: soft, nontender, nondistended MUSCULOSKELETAL: strength 5/5 throughout, head is normocephalic and atraumatic SKIN: warm and dry NEUROLOGIC: CN 2-12 grossly intact, no sensory deficit, normal cognition, normal speech, no gross focal deficits. PSYCHIATRIC: alert cooperative and oriented to person, place and time. Discharge Data Allergies Allergy/AdvReac Type Severity Reaction Status Date / Time No Known Allergies Allergy Verified 11/18/19 21:46 Consultations 01/03/20 19:13 ED Decision to Admit Stat 01/03/20 20:58 Consult Case Management - Discharge Planning Routine Consult Psychiatry Routine Hospital Course (1) Alcohol withdrawal: Admitted with acute intoxication and subsequent withdrawal symptoms. Gabapentin and ATivan were utilized successfully and symptoms were resolved prior to discharge. Psychiatry was consulted. The patient was just recently discharged from an alcohol rehabilitation program. Goal established to continue outpatient counseling and use improved coping strategies just learned to stay sober. (2) Suicidal ideations: Has a history of depression and suicidal ideations. When he was found by law enforecement his gun was confiscated and they confirmed they found no other weapons in the home. Psychiatry was consulted and followed him throughout his hospitalization. Any further benefit from an inpatient psychiatric hospitalization moving forward from time of discharge was considered but thought to be less helpful after discharge, so his 302 was released and he was discharged home. Further outpatient counseling was recommended, and the patient sees providers through [facility]. HE mentioned a trial of sertraline recently for 4 weeks which was unsuccessful per patient. This will need to be reviewed and other drug treatments explored by his outpatient providers. (3) GERD (gastroesophageal reflux disease): -Continue PPI per home regimen (4) Tobacco use: -Nicotine patch -tobacco cessation recommended Total Time Total Time Spent Total Time Spent (In Minutes): 60 Total Time Includes: Examination of the Patient, Discharge Planning, Medication Reconciliation and Communication With Other Providers Discharge Plan Discharge Items Patient Disposition: Home - Self-Care Reason For Visit: ALCOHOL WITHDRAWAL,SI Discharge Diagnosis: Alcohol withdrawal Hypertension Depression with SI Condition on Discharge: Good Health Concerns: Quit smoking Stay sober from alcohol Cut down on caffeine intake to two cups of coffee daily. Activity: Resume your previous activity Non-emergency contact: Primary Care Provider Call non-emergency contact if: you have any medication questions, your symptoms worsen, your pain is not controlled, your pain is worsening, your pain is unu sual for you, your pain is concerning for you and you have a fever Follow-up/Referrals: PCP,NO [Primary Care Provider] - Diet: Low Sodium (2gm) Addtl Attending Provider Instructions: Please take all medications as instructed on discharge list below. You are being given a new blood pressure medication which will require nonfasting blood work in two weeks. Please ensure follow-up with [facility] or your primary care provider to recheck your blood pressure, ensuring you are tolerating the new medication without side effects, and ordering the bloodwork for monitoring. It is recommended that you stick to a low sodium diet, which is a natural way to control your blood pressure. Please followup with [facility] this week to discuss blood pressure, new medication and need for bloodwork. Also important to discuss is how to stay quit from alcohol, smoking and how to cut down on your caffeine intake. It was a pleasure taking care of you! Please call if you have any questions or problems. You can reach a [facility] hospitalist on duty at [facility] 24 hours a day by calling [phone]. Take care of yourself. Celina Rayo, [facility] Hospitalist Pending Studies at Discharge: No Stand-Alone Forms: [facility], Smoking Cessation Medications and DC Order Prescriptions: New nicotine [Nicoderm CQ] 21 mg/24 hr Patch 24 Hour 21 mg transdermal QAM Qty: 14 RF: 1 lisinopril 20 mg tablet 20 mg PO HS Qty: 30 RF: 1 Continued omeprazole 20 mg capsule,delayed release(DR/EC) 20 mg PO DAILY RF: 0 Discharge Orders: Discharge Order (Routine); Ordered 01/06/20 Ordered By: Celina Rayo Admission Data Admit Date/Time: 01/03/20 19:32 Attending Provider: Celina Rayo Admit Provider: Kahlil Del Rio Primary Care Provider: PCP,NO Other Providers: Kahlil Del Rio ; Roxanna Pendleton Other Interventions: Discharge Summary Assessment (RN) Last Done: 01/06/20 16:14 DC Date/Time DO NOT enter until pt leaves facility: 01/06/20 16:50
[2020-01-05] MEDS ORDERED: HydrALAZINE HCL 20 MG/ML VIAL IV STA (14:42)
[2020-01-05] MEDS ORDERED: cloNIDine HCL 0.1 MG TAB PO STA (17:02)
[2020-01-05] MEDS ORDERED: cloNIDine HCL 0.1 MG TAB PO PRN (17:04)
--- NOTE | 2020-01-05 17:45 | Hospitalist Progress Note ---
Date of Service January 05, 2020 Assessment & Plan (1) Hypertension: Likely rebound hypertension from being off clonidine. We will reinstitute 1 dose of clonidine now and then as needed twice daily. Lisinopril 20 was started today and should likely take more effect overnight. Continue to monitor closely. Avoid excessive caffeine intake, which is noted to already be excessive at 4 cups of coffee today. Low-salt diet. (2) Alcohol withdrawal: cont gabapentin and Ativan per protocol. He initially appeared less anxious and improved overall this morning. However, he had approximately 4 cups of coffee this afternoon and is now more tremulous. He also reports excessive use of caffeine at home, quantifying his intake to 1/2 to 1 gallon of coffee per day. Blood pressure increased as the day went on, however, this is likely secondary to rebound hypertension from clonidine noncompliance. Plan as above. (3) Suicidal ideations: H/O Depression and Suicidal Ideations, which she denies actively having today. Reported by police pt saying wants to and tried to get his gun. Police filed 302 -One to one observation -Plans for inpatient mental health treatment following detoxification (4) GERD (gastroesophageal reflux disease): -Continue PPI per home regimen (5) Tobacco use: -Nicotine patch -tobacco cessation recommended (6) Caffeine abuse: Strongly advised to cut down caffeine intake to 2 cups of coffee per day. (7) DVT prophylaxis: Lovenox Full Code Dispo-cont telemetry monitoring. Hopeful to discharge to inpatient mental health care tomorrow once blood pressure has stabilized. Celina Rayo DO [facility] Hospitalist Admission and Anticipated Discharge Date Admission Date: January 03, 2020 Anticipated date of discharge: 01/06/20 Subjective The patient is more calm and doing better from a hemodynamic standpoint today. He reports feeling better overall denies any chest pain or shortness of breath or excessive agitation. He feels his agitation is improved. He informs me that he was recently in rehab for 1 month for alcoholism and that he had a relapse shortly after coming home because of a lack of AA meetings and access to medical care. He is seen in [facility] but does not have established care with a primary care provider. He reports being on clonidine 0.1 mg twice daily. [facility] records reflect that he was on 0.2 mg twice daily. He reports that his blood pressure was well controlled on the clonidine in the past but does not think he was given it at rehab except for 1 or 2 times. As clonidine is a regular treatment for him, he is likely experiencing rebound hypertension from being off this. Hydralazine has not been helpful and lisinopril has been started which would be a preferred agent. At this time we will institute clonidine to get his blood pressure down and then use as needed while the lisinopril has time to work. Review of Systems Review of Systems: All systems reviewed & are unremarkable except as noted in Subjective Physical Exam Physical Exam: CONSTITUTIONAL: WNWD, vitals as above, generally well- appearing EYES: normal conjunctivae, no scleral icterus ENT: MMM RESPIRATORY: clear to auscultation bilaterally, no crackles, rales or wheezes, normal respiratory effort CARDIOVASCULAR: regular rate and rhythm, S1 and 2 heard without murmurs, gallops or rubs, no JVD, no peripheral edema GASTROINTESTINAL: soft, nontender, nondistended MUSCULOSKELETAL: strength 5/5 throughout, head is normocephalic and atraumatic SKIN: warm and dry NEUROLOGIC: CN 2-12 grossly intact, no sensory deficit, normal cognition, normal speech, no gross focal deficits. PSYCHIATRIC: alert cooperative and oriented to person, place and time. Results & Data Results & Data ([facility]) Vital Signs (Past 12 Hours) Vital Signs Temp Pulse Pulse Resp BP BP Pulse Ox 01/05/20 16:00 36.7 C 93 H 16 183/99 H 95 01/05/20 15:11 84 01/05/20 14:23 184/92 H 01/05/20 12:00 36.6 C 82 14 168/90 H 94 01/05/20 07:52 36.5 C 75 18 168/94 H 97 01/05/20 07:23 64 Laboratory Results Short CBC 01/05/20 Range/Units 05:41 WBC 4.62 L (4.8-10.8) K/uL Hgb 16.9 (14.0-18.0) g/dL Hct 46.7 (42-52) % Plt Count 185 (130-400) K/uL BMP 01/05/20 05:41 Sodium 133 L Potassium 3.1 L Chloride 101 Carbon Dioxide 24 BUN 7 Creatinine 0.96 Glucose 135 H Calcium 8.7 Medications Administered Current Inpatient Medications Acetaminophen (Tylenol) 650 mg PO Q4H PRN PRN Reason: Pain or Fever Stop: 02/02/20 20:57 Clonidine HCl (Catapres) 0.1 mg PO BID PRN PRN Reason: SBP>160 Stop: 02/04/20 20:59 Enoxaparin Sodium (Lovenox) 40 mg SQ Q24H [facility] Stop: 02/02/20 21:59 Last Admin: 01/04/20 21:24 Dose: 40 mg Documented by: Folic Acid (Folvite) 1 mg PO QAM [facility] Stop: 02/02/20 21:59 Last Admin: 01/05/20 07:30 Dose: 1 mg Documented by: Gabapentin (Neurontin) 600 mg PO Q12H [facility] Stop: 01/06/20 10:01 Gabapentin (Neurontin) 600 mg PO Q24H [facility] Stop: 01/07/20 10:01 Lorazepam (Ativan) 1 mg in 2 mls @ 2 mls/min IV UD PRN; Protocol PRN Reason: EtOH Withdrawl AWSS Score 6,7 Stop: 02/02/20 20:57 Last Admin: 01/05/20 12:24 Dose: 2 mls/min Documented by: Lorazepam (Ativan) 2 mg in 4 mls @ 4 mls/min IV UD PRN; Protocol PRN Reason: EtOH Withdrawl AWSS Score 8,9 Stop: 02/02/20 20:57 Last Admin: 01/05/20 04:15 Dose: 4 mls/min Documented by: Lorazepam (Ativan) 3 mg in 6 mls @ 4 mls/min IV ONCE PRN; Protocol PRN Reason: EtOH Withdrawl AWSS Score >=10 Stop: 02/02/20 20:57 Lorazepam (Ativan) 1 mg in 2 mls @ 0.5 mls/min IV Q4H PRN PRN Reason: Anxiety Stop: 02/02/20 20:57 Last Admin: 01/04/20 03:44 Dose: 0.5 mls/min Documented by: Miscellaneous (Remove Nicoderm Patch) 1 ea N/A DAILY@0859 [facility] Stop: 02/03/20 08:58 Last Admin: 01/05/20 08:03 Dose: 1 ea Documented by: Multivitamins (Multivitamin Tab) 1 tab PO [facility] Stop: 02/03/20 08:59 Last Admin: 01/05/20 07:30 Dose: 1 tab Documented by: Nicotine (Nicoderm Cq) 21 mg TD QAM [facility] Stop: 02/02/20 21:59 Last Admin: 01/05/20 08:03 Dose: 21 mg Documented by: Ondansetron HCl (Zofran) 4 mg IV Q6H PRN PRN Reason: Nausea Stop: 02/02/20 20:57 Pantoprazole Sodium (Protonix) 40 mg PO DAILY [facility] Stop: 02/03/20 08:59 Last Admin: 01/05/20 07:30 Dose: 40 mg Documented by: Thiamine HCl (Vitamin B-1) 100 mg PO QAM [facility] Stop: 02/02/20 21:59 Last Admin: 01/05/20 07:31 Dose: 100 mg Documented by: (1) Alcohol withdrawal Complication of substance-induced condition: with unspecified complication Qualified Code(s): F10.239 - Alcohol dependence with withdrawal, unspecified
[2020-01-05] MEDS: ENOXAPARIN INJ 40 MG/0.4 ML SYR SQ SCH (21:54)
[2020-01-06 07:05] LABS: BUN Creatinine Ratio 10.5 (10-20); Calcium 8.8 mg/dl (8.5-10.1); Creatinine Clr Calc Pharmacy 97.9 ml/min; Est GFR (African American) 106.5; Est GFR (Non-African American) 91.9; Potassium 3.6 mmol/L (3.5-5.1)
[2020-01-06] MEDS: MULTIVITAMIN TAB PO SCH (07:09)
[2020-01-06] MEDS: FOLIC ACID 1 MG TAB PO SCH (07:09)
[2020-01-06] MEDS: THIAMINE HCL 100 MG TAB PO SCH (07:10)
[2020-01-06] MEDS: PANTOprazole 40 MG TAB PO SCH (07:10)
[2020-01-06] MEDS: NICOTINE 21 MG/24 HR TDSY TD SCH (07:10)
[2020-01-06] MEDS ORDERED: LORazepam 0.5 MG TAB PO PRN (07:33)
[2020-01-06] MEDS: GABAPENTIN 600 MG TAB PO SCH (11:31)
--- NOTE | 2020-01-06 12:30 | Psychiatric Progress Note ---
Date of Service January 06, 2020 Impression / Recommendations Impression 59-year-old gentleman with a history of depression and alcohol use disorder with multiple rehab failures in the past who re-presented with recurrence of suicidal ideation with plan to shoot himself in the setting of alcohol intoxication. On reevaluation today suicidal ideation has resolved and patient appears future oriented. RECOMMENDATIONS: 01/03 - Continue medical treatment for anticipated alcohol withdrawal per primary team. Pt remains on 1:1 and suicide precautions. - Pt is on a 302 warrant, allowing him to be held in the hospital until psychiatric evaluation is completed and recommendations regarding level of psychiatric treatment can be rendered. Pt is not able to leave the hospital AMA. - Pt is agreeable at this time with inpatient psychiatric treatment after discharge, with plans for ongoing discussion regarding substance abuse treatment options - this is consistent with recommendations from our service for inpatient psychiatric treatment - Will attempt to coordinate with outpatient therapist and other providers through [facility] - No plans to initiated psychiatric medications during the acute withdrawal phase, due to increased risk of seizure. Will defer medication initiation to accepting psychiatric facility - Appreciate the opportunity to participate in the care of this patient. Please reach out to our service with any additional questions or updates 01/05 Suicidal ideation has resolved in the absence of intoxication At this time in the absence of thoughts of harm to himself or others and demonstrating a fairly euthymic mood state, the next step in his treatment to most appropriately address treatment needs is treatment for his ongoing substance abuse. Unfortunately he is not willing for inpatient rehab dispositio n but indicates that he will follow-up with his outpatient providers to pursue intensive outpatient and AA resources. He has appointments with physician and therapist at [facility] scheduled for tomorrow which unfortunately we are unable to confirm on Tuesday. Patient was able to convincingly contract for safety and access to emergency care reviewed. At this time I do not believe that there would be much additional therapeutic value in pursuing psychiatric hospitalization following medical clearance and in the setting of active community spread of covid19 viral pandemic, I feel it is reasonable to discharge him from the 302 when medically cleared to continue his treatment as an outpatient. He can consider resuming antidepressant pharmacotherapy with his outpatient provider. Portions of the above document may have been created using voice recognition software which may introduce word substitution errors. Please direct any questions to the undersigned. Risk Factors Assessment Male: Yes : Yes Do You Have Access To A Gun?: Yes (loaded rifle found in his home - secured by police) Health Problems: No Mental Health Diagnoses: Yes Substance Use Disorders: Yes Previous Attempt: No Previous Attempt; Highly Lethal: No Previous Attempt; Planned: No Previous Attempt; Didn't Tell Anyone: No Previous Psychiatric Hospitalization: Yes Hopelessness: No Protective Factors Assessment Ep[employer] Beliefs: Yes : No Responsible for Young Children: No Employed: No Stable Relationships: No Supportive Family: No Good Rapport with Provider: Yes Interval History Chief Complaint "I'm feeling better". Review of Systems Notes denies SI/HI/AVH. denies feeling depressed or anxious. denies s/o jolanta. Subjective Subjective Patient was seen & assessed and interval progress reviewed with treatment team. It appears patient may be medically cleared later today. Patient was seen today to reassess suicidality on hospital day #3. His psychiatric hospitalization which lasted only 2 days in September 2019 was also reviewed. He appears to have a history of longstanding alcohol abuse and has experienced repeated instances of suicidal ideation while intoxicated but no known history of self-harm. Admission circumstances were admittedly concerning with loaded gun in the household however the weapon which is a 22 long rifle was confirmed by nursing to be in the custody of [place] police and no other weapons were found in the home. Similar to prior presentations, in the absence of intoxication, patient is denying ongoing suicidal ideation or intent for harm to himself or anyone else. He endorses a relatively good mood today and expresses belief that another psychiatric hospitalization would be of little therapeutic benefit for him. This was explored at length and I countered that, as an absolute minimum, a longer hospitalization would reduce immediate access to alcohol which he acknowledged however he has been to rehab perhaps 9 or 10 times and he reports accurately that, until he decides that he truly wants to stop drinking, there is little that we can do to prevent him from doing so. Unfortunately he declines to consider discharge to another inpatient rehab program presently but does acknowledge willingness to follow-up with intensive outpatient and AA which was recommended but not yet in place by his outpatient providers. He reports that he has follow-up at [facility] scheduled tomorrow with both MD and therapist. He denies hallucinations and physically denies feeling still in the midst of withdrawal. He is fully oriented, calm, and rational throughout interview. Again he denies passive or active wish, suicidal ideation, homicidal ideation. He indicated that he would be willing for the police to confiscated his gun (he agreed to this prior to my knowledge that the gun was already removed from the household). Physical Exam Psychiatric Orientation: alert, oriented x 3 and cooperative Apperance: appeared stated age Eye Contact: good eye contact Motor Behavior: + tremor (R>L UE) Speech: normal rate/rhythm/volume of speech Affect: euthymic affect; no depressed affect and no labile affect Mood: no depressed mood Thought Process: goal directed thought process and thought association intact Thought Content: reality based without delusions (some minimization evident) Suicidal Thoughts: denies suicidal thoughts, denies suicidal plan and denies suicidal intent Homicidal Thoughts: denies homicidal thoughts, denies homicidal plan and denies homicidal intent Hallucinations: no auditory hallucinations, no visual hallucinations and no tactile hallucinations Cognition: remote memory grossly intact, attention grossly intact and language grossly intact; + recent memory not intact Estimated Intelligence: average estimated intelligence Insight: + fair insight Judgement: + fair judgement Vital Signs (Past 24 Hours) Last Vital Signs Temp 36.5 C 01/06/20 10:50 Pulse 73 01/06/20 10:50 Resp 15 01/06/20 10:50 BP 130/87 01/06/20 10:50 Pulse Ox 95 01/06/20 10:50 Results & Data ([facility]) Laboratory Results Laboratory Results - last 24 hr 01/06/20 05:51 Sodium 137 Potassium 3.6 D Chloride 107 Carbon Dioxide 24 Anion Gap 6.0 BUN 10 Creatinine 0.91 Est Cr Clr Drug Dosing 97.9 Est GFR ( Amer) 106.5 Est GFR (Non-Af Amer) 91.9 BUN/Creatinine Ratio 10.5 Glucose 113 H Calcium 8.8 Current Inpatient Medications Current Inpatient Medications: Current Inpatient Medications Acetaminophen (Tylenol) 650 mg PO Q4H PRN PRN Reason: Pain or Fever Stop: 02/02/20 20:57 Clonidine HCl (Catapres) 0.1 mg PO BID PRN PRN Reason: SBP>160 Stop: 02/04/20 20:59 Enoxaparin Sodium (Lovenox) 40 mg SQ Q24H [facility] Stop: 02/02/20 21:59 Last Admin: 01/05/20 21:54 Dose: Not Given Documented by: [facility] ([facility]) [facility] Stop: 02/02/20 21:59 Last Admin: 01/06/20 07:09 Dose: 1 mg Documented by: Gabapentin (Neurontin) 600 mg PO Q24H [facility] Stop: 01/07/20 10:01 Lorazepam (Ativan) 0.5 mg PO Q8H PRN PRN Reason: Anxiety Stop: 02/05/20 07:32 Miscellaneous (Remove Nicoderm Patch) 1 ea N/A DAILY@0859 [facility] Stop: 02/03/20 08:58 Last Admin: 01/06/20 07:11 Dose: 1 ea Documented by: Multivitamins (Multivitamin Tab) 1 tab PO [facility] Stop: 02/03/20 08:59 Last Admin: 01/06/20 07:09 Dose: 1 tab Documented by: Nicotine (Nicoderm Cq) 21 mg TD [facility] Stop: 02/02/20 21:59 Last Admin: 01/06/20 07:10 Dose: 21 mg Documented by: Ondansetron HCl (Zofran) 4 mg IV Q6H PRN PRN Reason: Nausea Stop: 02/02/20 20:57 Pantoprazole Sodium (Protonix) 40 mg PO DAILY [facility] Stop: 02/03/20 08:59 Last Admin: 01/06/20 07:10 Dose: 40 mg Documented by: Thiamine HCl (Vitamin B-1) [facility] Stop: 02/02/20 21:59 Last Admin: 01/06/20 07:10 Dose: 100 mg Documented by:
[2020-01-07] MEDS ORDERED: GABAPENTIN 600 MG TAB PO SCH (10:00)
== END 2020-01-06 16:50 | disposition home or self-care (01) | DRG 897 ==
LOC: ED 14:18 → SUATTDRO 19:32 → 2E 19:32
DX: K21.9 Gastro-esophageal reflux disease without esophagitis; F32.9 Major depressive disorder, single episode, unspecified; Z82.49 Family history of ischemic heart disease and other diseases of the circulatory system; I10 Essential (primary) hypertension; R45.851 Suicidal ideations; F17.210 Nicotine dependence, cigarettes, uncomplicated; F10.239 Alcohol dependence with withdrawal, unspecified

== ENCOUNTER 2020-01-10 12:29 | Inpatient (IN) ==
--- NOTE | 2020-01-10 12:52 | Emergency Department Note ---
Impression & Plan Alcohol intoxication, Suicidal ideations, Anxiety ED Provider Note Provider: Lio Dee MD DATE OF SERVICE: 01/10/2020 CHIEF COMPLAINT: Mental health evaluation HISTORY OF PRESENT ILLNESS: Patient is a 59-year-old gentleman with a history of alcohol abuse and hypertension and GERD presenting today stating that he is highly depressed and wished to kill himself. Patient appears highly intoxicated and does endorse alcohol use today. Patient with recent admission for alcohol withdrawal, intoxication as well as suicidal thoughts over this weekend and was on a 302 warrant at that time and seen by psychiatry. Sent home approximately 4 days ago. Patient states that he does not have a gun anymore but has a knife at home was thinking of stabbing himself in the heart with it but did not do it. Patient states he just wants a medicine to sleep at this time. Patient states he is estranged from his family. Patient states he is not hungry and did not eat today. Patient evidently did have some contact with crisis prior to arrival who did take down his statements. REVIEW OF SYSTEMS: A total of 10 review of systems was obtained and negative except as stated above in the HPI. PAST MEDICAL HISTORY: As noted above MEDICATIONS: States noncompliance with lisinopril and omeprazole FMH: Denies a family history of alcoholism or depression per his report to me SOCIAL HISTORY: Patient endorses a history of alcoholism, denies illicit drug use PHYSICAL EXAM: GENERAL: alert and oriented sitting/laying on the bed appears disheveled and smells of alcohol Head: normocephalic and atraumatic EYES: No injection, discharge or icterus. ENT: Mucous membranes pink and moist. LUNGS: Airway patent. No retractions. Breath sounds clear with good air entry bilaterally. HEART: Regular rate and rhythm. No chest wall tenderness SKIN: Acyanotic, warm, dry, without rashes EXTREMITIES: Without swelling, tenderness or deformity NEUROLOGICAL: Moving all extremities, slurring speech, no acute facial droop. Not particularly tremulous Patient's hypertension was referred to his primary doctor HOSPITAL COURSE: 1232 Patient was first seen and H&P performed. 2014 Patient was seen. Has removed IV. States anxious. Given home BP med and Ativan. 2139 Patient signed out to Dr. Ren. Physiatric case packer to evaluate shortly. Patient's laboratory studies and imaging reviewed. Differential includes Mood disorder, infection, hypoglycemia, electrolyte abnormalities, cardiac sources, intracerebral event, toxicologic, trauma, neurologic, as well as other pathologies. IMPRESSION/MEDICAL DECISION MAKING: Patient presents and clinically appears highly intoxicated. Making suicidal s tatements intermittently did make some statements to crisis. They later arrive with 302 warrant. Did review recent medical records and admission. Basic medical clearance was completed and labs obtained. Patient is highly intoxicated making threats but will have to assess psychiatrically more when the patient is no longer intoxicated. Will monitor for withdrawal symptoms at this time. Patient has been making some concerning statements requesting sedative medications while here. Alcohol level is significantly elevated initially. Will need be monitored again until sober for further psychiatric evaluation. Patient has 302 warrant as had tried to leave ED in intoxicated state making SI statements. Given the patient's anxiety did give him some additional Ativan at this time but do not feel he is in acute alcohol withdrawal. Patient self removed his IV here. Given some oral Ativan in his home lisinopril. As he is on a 302 warrant, needs again to be sober for psychiatric eval. Signed out pending sobriety. DIAGNOSIS: Alcohol intoxication, anxiety, suicidal statements DISPOSITION: Signed out pending sobriety for psych eval. Observation note: Indication: alcohol intoxication for medical clearance Patient, he denies a family history of alcoholism, was first seen at and the o bservation time began at 1240 hrs and was observation was necessary for this patient who presented with significant altered mental status to monitor the patient until he/she regained normal mentation and to determine whether additional work up or admission would be necessary. Past Med/Surg History Social History Preferred Language: Northern Irish Communication Ability: Effective Agricultural Services Director Required: No Beliefs That Will Affect Care: Church Church Beliefs: n/a marital status: Current Living Situation: Alone Current Living Situation Comment: Lives with several other men in same house Feels Safe at Home: Yes and No Is there a partner from a previous relationship who is making you feel unsafe now?: No Smoking Status: Current some day smoker Tobacco Type: cigarettes ; Second Hand Exposure: Yes ; Hx Alcohol Use: Yes Alcohol type: beer Hx Substance Use: No Allergies Allergies Allergy/AdvReac Type Severity Reaction Status Date / Time No Known Allergies Allergy Verified 11/18/19 21:46 Home Meds Home Medications Medication Instructions Recorded Confirmed omeprazole 20 mg PO DAILY 09/24/19 01/10/20 Previous Rx's Medication Instructions Recorded lisinopril 20 mg PO HS #30 tab 01/06/20 nicotine [Nicoderm CQ] 21 mg TRANSDERMAL QAM #14 ea 01/06/20 Results & Data (ED) Vital Signs Vital Signs - 24 hr 01/10/20 12:41 01/10/20 14:46 01/10/20 17:26 Temperature 36.9 C Temperature Source Oral Pulse Rate 88 Pulse Rate [Finger] 88 107 H Pulse Rhythm [Finger] Pulse Strength [Finger] Respiratory Rate 20 18 22 Respiratory Effort / Characteristics Respiratory Depth Respiratory Pattern Blood Pressure 149/79 H Blood Pressure [Left Arm] 175/101 H 177/92 H Blood Pressure Mean 102 Blood Pressure Mean [Left Arm] 125 120 Blood Pressure Position [Left Arm] Pulse Oximetry 93 96 94 Oxygen Delivery Method Room Air Room Air Sepsis Recent Fever Within 48 Hours No Sepsis New/Unexplained Change in Mental Status No Sepsis Action Taken by Nursing No Action Required 01/10/20 19:00 Temperature 36.6 C Temperature Source Oral Pulse Rate Pulse Rate [Finger] 108 H Pulse Rhythm [Finger] Regular Pulse Strength [Finger] Normal Respiratory Rate 22 Respiratory Effort / Characteristics Non-Labored Spontaneous Respiratory Depth Normal Respiratory Pattern Regular Blood Pressure Blood Pressure [Left Arm] 187/84 H Blood Pressure Mean Blood Pressure Mean [Left Arm] 118 Blood Pressure Position [Left Arm] Lying Pulse Oximetry 92 Oxygen Delivery Method Room Air Sepsis Recent Fever Within 48 Hours Sepsis New/Unexplained Change in Mental Status Sepsis Action Taken by Nursing Laboratory Data Result diagrams: 01/10/20 12:54 01/10/20 12:54 Lab Results 01/10/20 01/10/20 01/10/20 Range/Units 12:54 12:54 12:54 WBC 5.22 (4.8-10.8) K/uL RBC 5.45 (4.7-6.1) M/uL Hgb 17.9 (14.0-18.0) g/dL Hct 49.5 (42-52) % MCV 90.8 (80-100) fL MCH 32.8 (25-34) pg MCHC 36.2 H (32-36) g/dL RDW Std Deviation 40.5 (36.4-46.3) fL RDW Coeff of Eloy 12.3 (11.5-14.5) % Plt Count 172 (130-400) K/uL MPV 9.9 (7.4-10.4) fL Immature Gran % (Auto) 0.2 % Neut % (Auto) 40.8 % Lymph % (Auto) 49.6 % Gibson % (Auto) 7.3 % Eos % (Auto) 1.7 % Baso % (Auto) 0.4 % Immature Gran # (Auto) 0.01 (0.00-0.02) K/uL Neut # (Auto) 2.13 (1.4-6.5) K/uL Lymph # (Auto) 2.59 (1.2-3.4) K/uL Gibson # (Auto) 0.38 (0.11-0.59) K/uL Eos # (Auto) 0.09 (0-0.5) K/uL Baso # (Auto) 0.02 (0-0.2) K/uL Sodium 135 L (136-145) mmol/L Potassium 3.5 (3.5-5.1) mmol/L Chloride 102 (98-107) mmol/L Carbon Dioxide 27 (21-32) mmol/L Anion Gap 7.0 (3-11) BUN 11 (7-18) mg/dl Creatinine 1.00 (0.6-1.4) mg/dl Est Cr Clr Drug Dosing 90.5 ml/min Est GFR ( Amer) 95.1 Est GFR (Non-Af Amer) 82.0 BUN/Creatinine Ratio 10.8 (10-20) Glucose 109 H (70-99) mg/dl Calcium 8.8 (8.5-10.1) mg/dl Total Bilirubin 0.7 (0.2-1) mg/dl AST 38 H (15-37) U/L ALT 70 (12-78) U/L Alkaline Phosphatase 78 (45-117) U/L Total Protein 8.4 H (6.4-8.2) gm/dl Albumin 4.5 (3.4-5.0) gm/dl Globulin 3.9 (2.5-4.0) gm/dl Albumin/Globulin Ratio 1.2 (0.9-2) TSH 0.344 (0.300-4.500) uIu/ml Urine Color Urine Appearance (Clear) Urine pH (4.5-7.5) Ur Specific Glynn (1.000-1.030) Urine Protein (Negative) Urine Glucose (UA) (Negative) Urine Ketones (Negative) Urine Blood (Negative) Urine Nitrite (Negative) Urine Bilirubin (Negative) Urine Urobilinogen (Negative) Ur Leukocyte Esterase (Negative) Salicylates < 1.7 L (2.8-20) mg/dl Urine Opiates Screen (Neg) Ur Methadone, Qual (Neg) Acetaminophen < 2 L (10-30) ug/ml Urine Barbiturates (Neg) Ur Phencyclidine (PCP) (Neg) U Amphetamin/Meth Scrn (Neg) MDMA (Ecstasy) Screen (Neg) U Benzodiazepines Scrn (Neg) Ur Cocaine Metabolite (Neg) U Marijuana (THC) Screen (Neg) Ethyl Alcohol mg/dL (0-3) mg/dl 01/10/20 01/10/20 01/10/20 Range/Units 12:54 13:29 13:29 WBC (4.8-10.8) K/uL RBC (4.7-6.1) M/uL Hgb (14.0-18.0) g/dL Hct (42-52) % MCV (80-100) fL MCH (25-34) pg MCHC (32-36) g/dL RDW Std Deviation (36.4-46.3) fL RDW Coeff of Eloy (11.5-14.5) % Plt Count (130-400) K/uL MPV (7.4-10.4) fL Immature Gran % (Auto) % Neut % (Auto) % Lymph % (Auto) % Gibson % (Auto) % Eos % (Auto) % Baso % (Auto) % Immature Gran # (Auto) (0.00-0.02) K/uL Neut # (Auto) (1.4-6.5) K/uL Lymph # (Auto) (1.2-3.4) K/uL Gibson # (Auto) (0.11-0.59) K/uL Eos # (Auto) (0-0.5) K/uL Baso # (Auto) (0-0.2) K/uL Sodium (136-145) mmol/L Potassium (3.5-5.1) mmol/L Chloride (98-107) mmol/L Carbon Dioxide (21-32) mmol/L Anion Gap (3-11) BUN (7-18) mg/dl Creatinine (0.6-1.4) mg/dl Est Cr Clr Drug Dosing ml/min Est GFR ( Amer) Est GFR (Non-Af Amer) BUN/Creatinine Ratio (10-20) Glucose (70-99) mg/dl Calcium (8.5-10.1) mg/dl Total Bilirubin (0.2-1) mg/dl AST (15-37) U/L ALT (12-78) U/L Alkaline Phosphatase (45-117) U/L Total Protein (6.4-8.2) gm/dl Albumin (3.4-5.0) gm/dl Globulin (2.5-4.0) gm/dl Albumin/Globulin Ratio (0.9-2) TSH (0.300-4.500) uIu/ml Urine Color Yellow Urine Appearance Clear (Clear) Urine pH 5.5 (4.5-7.5) Ur Specific Glynn 1.009 (1.000-1.030) Urine Protein Negative (Negative) Urine Glucose (UA) Negative (Negative) Urine Ketones Negative (Negative) Urine Blood Negative (Negative) Urine Nitrite Negative (Negative) Urine Bilirubin Negative (Negative) Urine Urobilinogen Negative (Negative) Ur Leukocyte Esterase Negative (Negative) Salicylates (2.8-20) mg/dl Urine Opiates Screen Neg (Neg) Ur Methadone, Qual Neg (Neg) Acetaminophen (10-30) ug/ml Urine Barbiturates Neg (Neg) Ur Phencyclidine (PCP) Neg (Neg) U Amphetamin/Meth Scrn Neg (Neg) MDMA (Ecstasy) Screen Neg (Neg) U Benzodiazepines Scrn Neg (Neg) Ur Cocaine Metabolite Neg (Neg) U Marijuana (THC) Screen Neg (Neg) Ethyl Alcohol mg/dL 281.1 H (0-3) mg/dl Administered Medications Discontinued Medications Lorazepam (Ativan) 2 mg in 4 mls @ 4 mls/min IV NOW STA Stop: 01/10/20 14:56 Last Admin: 01/10/20 15:04 Dose: 4 mls/min Documented by: [id number] Lisinopril (Zestril) 20 mg PO NOW STA Stop: 01/10/20 20:17 Last Admin: 01/10/20 20:30 Dose: 20 mg Documented by: [id number] Lorazepam (Ativan) 1 mg SL NOW STA Stop: 01/10/20 17:50 Last Admin: 01/10/20 17:56 Dose: 1 mg Documented by: [id number] Lorazepam (Ativan) 2 mg SL NOW STA Stop: 01/10/20 20:17 Last Admin: 01/10/20 20:30 Dose: 2 mg Documented by: [id number] Nicotine (Nicoderm Cq) 21 mg TD ONE ONE Stop: 01/10/20 13:35 Last Admin: 01/10/20 13:49 Dose: 21 mg Documented by: [id number] Discharge Plan Visit Data Chief Complaint: Mental Health Evaluation Stated Complaint: [facility] ED Provider: Lio Dee Discharge Problem: Alcohol intoxication, Suicidal ideations, Anxiety Forms Stand Alone Forms: [facility], Suicide Prevention Resources Prescriptions Prescriptions: No Action omeprazole 20 mg capsule,delayed release(DR/EC) 20 mg PO DAILY RF: 0 nicotine [Nicoderm CQ] 21 mg/24 hr Patch 24 Hour 21 mg transdermal QAM Qty: 14 RF: 1 lisinopril 20 mg tablet 20 mg PO HS Qty: 30 RF: 1 Discharge Problem: Alcohol intoxication Qualifiers: Complication of substance-induced condition: with unspecified complication Qualified Code(s): F10.929 - Alcohol use, unspecified with intoxication, unspecified
[2020-01-10 13:15] LABS: Basophils # (auto) 0.02 K/uL (0-0.2); Basophils % (auto) 0.4 %; Eosinophils # (auto) 0.09 K/uL (0-0.5); Eosinophils % (auto) 1.7 %; Hematocrit (blood only) 49.5 % (42-52); Hemoglobin 17.9 g/dL (14.0-18.0); Immature Granulocytes # (auto) 0.01 K/uL (0.00-0.02); Immature Granulocytes % (auto) 0.2 %; Lymphocytes # (auto) 2.59 K/uL (1.2-3.4); Lymphocytes % (auto) 49.6 %; Mean Corpuscular Hemoglobin 32.8 pg (25-34); Mean Corpuscular Hgb Conc 36.2 g/dL (32-36); Mean Corpuscular Volume 90.8 fL (80-100); Mean Platelet Volume 9.9 fL (7.4-10.4); Monocytes # (auto) 0.38 K/uL (0.11-0.59); Monocytes % (auto) 7.3 %; Neutrophils # (auto) 2.13 K/uL (1.4-6.5); Neutrophils % (auto) 40.8 %; Platelet Count 172 K/uL (130-400); RDW Coefficient of Variation 12.3 % (11.5-14.5); RDW Standard Deviation 40.5 fL (36.4-46.3); Red Blood Count 5.45 M/uL (4.7-6.1); White Blood Count 5.22 K/uL (4.8-10.8)
[2020-01-10 13:32] LABS: Albumin Level 4.5 gm/dl (3.4-5.0); BUN Creatinine Ratio 10.8 (10-20); Calcium 8.8 mg/dl (8.5-10.1); Creatinine Clr Calc Pharmacy 90.5 ml/min; Est GFR (African American) 95.1; Potassium 3.5 mmol/L (3.5-5.1)
[2020-01-10] MEDS ORDERED: NICOTINE 21 MG/24 HR TDSY TD ONE (13:34)
[2020-01-10 13:37] LABS: Appearance Urine Clear (Clear); Bilirubin Urine Negative (Negative); Blood Urine Negative (Negative); Color Urine Yellow; Glucose Urine UA Negative (Negative); Ketones Urine Negative (Negative); Leukocyte Esterase Urine Negative (Negative); Nitrite Urine Negative (Negative); Protein Urine Negative (Negative); Specific Gravity Urine 1.009 (1.000-1.030); Urobilinogen Urine Negative (Negative); pH Urine 5.5 (4.5-7.5)
[2020-01-10 13:37] LABS: Acetaminophen < 2 ug/ml (10-30)
[2020-01-10 13:38] LABS: Salicylate < 1.7 mg/dl (2.8-20)
[2020-01-10 13:42] LABS: Albumin Globulin Ratio 1.2 (0.9-2); Bilirubin,Total 0.7 mg/dl (0.2-1); Globulin 3.9 gm/dl (2.5-4.0); Thyroid Stimulating Hormone 0.344 uIu/ml (0.300-4.500); Total Protein 8.4 gm/dl (6.4-8.2)
[2020-01-10 13:59] LABS: Amphetamines+Metham, Urine Neg (Neg); Barbiturates, Urine Neg (Neg); Benzodiazepine, Urine Neg (Neg); Cocaine, Urine Neg (Neg); MDMA (Ecstacy), Urine Neg (Neg); Methadone, Urine Neg (Neg); Opiate, Urine Neg (Neg); Phencyclidine, Urine Neg (Neg)
[2020-01-10] MEDS ORDERED: LORazepam 2 MG/4 ML VIAL IV STA (14:55)
[2020-01-10] MEDS ORDERED: LORazepam 1 MG TAB SL STA ×2 (17:49→20:16)
[2020-01-10] MEDS ORDERED: lisinopriL 20 MG TAB PO STA (20:16)
--- NOTE | 2020-01-10 21:37 | Emergency Department Note ---
ED Visit Note 2136: Center from Dr. Dee. Weekend patient has a history of alcoholism and states he wants to kill himself by sticking a "knife in his heart" patient would be medically cleared at 10 PM and then be evaluated by psychiatric casework. 2330: End of observation time. Patient evaluated by psychiatric case loader operator and psychiatry team on 3 S. and asked that the patient be admitted medically for DTs. Patient is currently tremulous and asking for Ativan 1 mg Ativan ordered at this time. Discussed case with [facility] hospitalist Dr. Del Rio who accepts the admission. . : Alcohol intoxication Qualifiers: Complication of substance-induced condition: with unspecified complication Qualified Code(s): F10.929 - Alcohol use, unspecified with intoxication, unspecified
[2020-01-10] MEDS ORDERED: LORazepam 1 MG/2 ML VIAL IV STA (23:26)
[2020-01-11] MEDS ORDERED: MULTI-VITAMIN INFUSION 10 ML, THIAMINE HCL 100 MG, FOLIC ACID 1 MG in SODIUM CHLORIDE 0... IV ONE (01:27)
[2020-01-11] MEDS ORDERED: LORazepam 2 MG/4 ML VIAL IV PRN (01:27)
[2020-01-11] MEDS ORDERED: ONDANSETRON INJ 2 MG/ML 2 ML VIAL IV PRN (01:27)
[2020-01-11] MEDS ORDERED: cloNIDine HCL 0.1 MG TAB PO PRN (01:27)
[2020-01-11] MEDS ORDERED: ACETAMINOPHEN 325 MG TAB PO PRN (01:27)
[2020-01-11] MEDS ORDERED: LORazepam 3 MG/6 ML VIAL IV PRN (01:27)
[2020-01-11] MEDS ORDERED: LORazepam 1 MG/2 ML VIAL IV PRN (01:27)
[2020-01-11] MEDS ORDERED: GABAPENTIN 1200MG ALCOHOL WITHDRAWAL LOAD PO STA (01:27)
[2020-01-11] MEDS ORDERED: ATIVAN IV ALCOHOL WITHDRAWL IV PRN (01:27)
[2020-01-11] MEDS ORDERED: NITROGLYCERIN SL 0.4 MG/TAB TAB SL PRN (01:27)
[2020-01-11] MEDS ORDERED: GABAPENTIN 600 MG TAB PO SCH (02:00)
--- NOTE | 2020-01-11 02:42 | History and Physical Report ---
DATE OF ADMISSION: 01/11/2020 CHIEF COMPLAINT: Alcoholism and suicidal ideation. HISTORY OF PRESENT ILLNESS: This is a 59-year-old male with past medical history significant for alcoholism, depression, suicidal ideations presents with thought to hurt himself. He was recently in the hospital on 01/03/2020 and got discharged on 01/06/2020, at that time he came with alcoholism and suicidal ideations. He was in the hospital for similar problem in September and he was discharged to alcohol rehabilitation and he was discharged back home, when at that time, he did not answer for a follow up call, and when the power and recovery shift engineer went, he was drinking and does complain of that he is trying to kill himself and he was brought into the hospital, he was treated with alcohol withdrawal protocol and also seen by psychiatrist and discharged back home. Now again comes back to the hospital says that at home, his gun was taken out, but he was having thoughts to kill himself by his knife, still drinking alcohol. He says he is drinking about 30 beers a day. His alcohol level has in 200's the ER .Denies any other complaints. Denies any headache, no blurred vision, no earache, no runny nose, no sore throat, no cough, no fever, no chills, no chest pain or shortness of breath. Says he vomited at home, but currently no nausea or vomiting. He says he is eating okay. Denies any abdominal pain, no diarrhea or constipation. Denies any blood in stools or black stools. Normal bladder movements. No swelling in the legs, no rash. ALLERGIES: No known drug allergies. PAST MEDICAL HISTORY: As mentioned above. PAST SURGICAL HISTORY: None. MEDICATIONS: Last time he was discharged on lisinopril 20 mg p.o. at bedtime, nicotine patch and omeprazole 20 mg p.o. daily. FAMILY HISTORY: No family history on file. SOCIAL HISTORY: , currently living alone. Smokes few cigarettes a day. Alcohol, drinks he says 30 beers a day for a long time. No drug use. REVIEW OF SYMPTOMS: As per HPI. Rest of review of symptoms negative. PHYSICAL EXAMINATION: GENERAL: The patient is of moderate build, not in acute distress. VITAL SIGNS: Temperature 36.6, pulse 108, respiratory rate 22, blood pressure 187/84, oxygen 92% on room air. HEENT: No pallor, no icterus. NECK: No JVD, no neck masses, no carotid bruits. CARDIOVASCULAR: S1, S2 heard. Tachycardia. No murmurs. RESPIRATORY SYSTEM: Normal AP diameter. No accessory muscle use. No wheezing, no crackles. ABDOMEN: Soft, bowel sounds present. Nontender. No distention. CENTRAL NERVOUS SYSTEM: Cranial nerves II-XII grossly intact. Nonfocal. EXTREMITIES: No edema, no erythema. LABORATORY DATA: WBC 5.3, hemoglobin 17.9, hematocrit 49.5, platelets 172. Sodium 135, potassium 3.5, chloride 102, bicarbonate 27, BUN 11, creatinine 1, serum glucose 109, calcium 8.8, total bilirubin 0.7, AST 38, ALT 30, alkaline phosphatase 78, total TSH 0.34. Urinalysis negative. Urine drug screen, salicylate less than 1.7, acetaminophen less than 2, alcohol level 281. Rest of the drug screen is negative. ASSESSMENT AND PLAN: This is a 59-year-old male with history of alcoholism, suicidal ideation, depression comes with alcoholism and suicidal ideation. 1. Alcoholism: He was recently in rehabilitation. Currently again he is willing to back go to rehab. We will place him on alcohol withdrawal protocol with gabapentin, IV Ativan p.r.n., IV banana bag, IV thiamine, IV folic acid and p.o. vitamins. Social service consult for possible rehab placement. Monitor closely for withdrawal symptoms. 2. Suicidal ideations: Recurrent.. Admitted in September and December for the same issues. Seen by psychiatry. May need inpatient psych once the patient is cleared from withdrawal. 3. Depression as per psychiatry. 4. Deep venous thrombosis prophylaxis, sequential compression devices. DISPOSITION: Close monitoring in the med/surg tele. Level 1 full code. MTDD
[2020-01-11] MEDS: SODIUM CHLORIDE 0.9% 1000ML 1,000 ML IV SCH ×2 (04:29→15:33)
--- NOTE | 2020-01-11 07:16 | Hospitalist Progress Note ---
Date of Service January 11, 2020 Assessment & Plan (1) Suicidal ideations: (2) Alcohol withdrawal: (3) Alcohol intoxication: (4) GERD (gastroesophageal reflux disease): (5) Tobacco use: (6) Alcohol dependence: (7) Hypertension: (8) Depression: (9) Anxiety: (10) DVT prophylaxis: ASSESSMENT AND PLAN: This is a 59-year-old male with history of alcoholism, suicidal ideation, depression comes with alcoholism again and suicidal ideation. 1. Alcoholism: He was recently in rehabilitation. Now currently again he is willing to back go to rehab. We will place him on alcohol withdrawal protocol with gabapentin, IV Ativan p.r.n., IV banana bag, IV thiamine, IV folic acid and p.o. vitamins. Social service consult for possible rehab placement. Monitor closely for withdrawal symptoms. 2. Suicidal ideations: This is a recurring problem. Admitted in September and December for the same issues. Seen by psychiatry. May need inpatient psych once the patient is cleared from withdrawal. 3. Depression as per psychiatry. 4. Deep venous thrombosis prophylaxis, sequential compression devices. Labs Checked ROS-No Headache, No Visual Changes, No Nausea, No Vomiting, No Fever, No Chills, No Neck Pain or Stiffness, No Chest Pain, No Palpitations, No SOB, No FONTENOT, No Cough, No Sputum, No Wheezing, No Abdominal Pain, No Diarrhea, No Hematemesis, No Hemoptysis, No Unexpected Weight Loss, No Flank pain, No Melena, No Hematochezia, No Frequency, No Urgency, No Burning, No Hematuria, No Rashes, No Diaphoresis. Appetite is Normal Physical Exam Gen-AAO x 3, NAD, Afebrile, Shaky Head-NCAT, EOMI, PERRLA, Anicteric Sclera, No Posterior Pharyngeal Erythema Neck-Supple, No JVD, No Thyromegaly, No Masses, No LAD, No Bruits Lungs-Clear to Auscultation Bilaterally, No Rales, No Rhonchi, No Wheezing, No Crepitus Chest-No S4, +S1, +S2, No S3, No Murmurs, No Rubs, No Gallops, No Ectopy Abdomen-Soft, Bowel Sounds Present, Non Tender, Non Distended, No Hepatomegaly, No Splenomegaly, No Palpable Masses, No Rebound, No Rigidity, No Guarding Musculoskeletal-Full Range of Motion Bilaterally, No CVAT Extremities-No Cyanosis, No Clubbing, No Edema Nuero-Cranial Nerves II-XII grossly intact, Motor WNL, DTRs WNL, Strength WNL, Non Focal Psych-Normal Mood Admission and Anticipated Discharge Date Admission Date: January 11, 2020 Results & Data Results & Data ([facility]) Vital Signs (Past 12 Hours) Vital Signs Temp Pulse Pulse Resp BP Pulse Ox 01/11/20 04:42 36.5 C 82 14 155/82 H 94 01/11/20 02:26 83 01/11/20 01:37 36.8 C 87 14 168/108 H 95 01/11/20 00:59 82 18 121/69 95 (1) Alcohol dependence Substance use status: unspecified alcohol-induced disorder Qualified Code(s): F10.29 - Alcohol dependence with unspecified alcohol-induced disorder (2) Alcohol withdrawal Complication of substance-induced condition: with unspecified complication Qualified Code(s): F10.239 - Alcohol dependence with withdrawal, unspecified (3) Alcohol intoxication Complication of substance-induced condition: with unspecified complication Qualified Code(s): F10.929 - Alcohol use, unspecified with intoxication, unspecified
[2020-01-11] MEDS: NICOTINE 21 MG/24 HR TDSY TD SCH (08:02)
[2020-01-11] MEDS: CEROVITE ADV FORMULA TAB PO SCH (08:02)
[2020-01-11] MEDS: GABAPENTIN 600 MG TAB PO SCH ×3 (08:03→21:20)
[2020-01-11] MEDS: THIAMINE HCL 100 MG in SYRINGE 9 ML IV SCH (08:03)
[2020-01-11] MEDS: PANTOprazole 40 MG TAB PO SCH (08:03)
[2020-01-11] MEDS: FOLIC ACID 1 MG in SYRINGE 9.8 ML IV SCH (08:05)
--- NOTE | 2020-01-11 10:52 | Psychiatric Consultation ---
Date of Consultation January 11, 2020 Impression / Recommendations Impression Dr. Reinaldo Plaza was directly involved in review and discussion of the patient's case and participated in medical decision making regarding treatment recommendations. RECOMMENDATIONS: 01/10 - Continue withdrawal management per primary team. - Planning to discuss inpatient D&A options with Shawn [facility]. Coordinated recommendations with case management, encouraging phone call be made with staff assistance. Pt is verbalizing willingness at this time for inpatient psychiatric treatment. Recommendation is for transfer directly from the hospital to a rehab facility, to reduce risk of relapse. - While patient did present under a 302 warrant, his current admission remains consistent with his history of repeated presentations to the ED with suicidal ideation within the context of alcohol intoxication. Pt denies the presence of active suicidal ideation once sober and is able to verbalize insight regarding his need to abstain from alcohol use. While it is possible there is a depressive component to his symptoms, his primary diagnosis is alcohol abuse which is most effectively addressed in the setting of inpatient drug and alcohol rehabilitation. Primary recommendation is for inpatient D&A rehab - pt reports willingness to call Shawn and discuss this further. In the [facility], we are unable to involuntarily commit patient's based on substance abuse, and cannot mandate substance abuse treatment. - Pt denies SI at time of our encounter, denies plan and means. Pt states he does not even recall the conversation that led to his ED presentation due to his level of intoxication. Reports awareness that the suicidality exists within the context of his alcohol use, and reports recognition of a need to abstain from alcohol. Will provide additional recommendations as indicated as patient is being treated medically. Risk Factors Assessment Do You Have Access To A Gun?: No (police removed rifle from his home ) Protective Factors Assessment Employed: No Psych History Identifying Data 59-year-old male admitted medically on 01/11/2020 after presenting to the ED via police in the context of alcohol intoxication. It was reported that police arrived at patient's home as requested by the [facility] [employer] to complete a safety check, as patient had verbalized suicidal statements over the phone while drinking. BAL on presentation to the ED was 281.1. Pt was initially referred for psychiatric admission; however, medical admission was suggested due to patient's history of alcohol withdrawal. Psychiatric consultation placed to further evaluate suicidality. Chief Complaint "I just started right back drinking again." History of Present Illness Shadi Davalos is a 59-year-old male admitted medically on 01/11/2020 after presenting to the ED via police following a safety check. Pt presented intoxicated with a BAL of 281.1; with initial referral for inpatient psychiatric treatment. As patient, and his history of alcohol withdrawal symptoms, is well- known to our service and medical admission was recommended. Psychiatric consultation was therefore requested for management during medical admission. Pt was was cooperative with psychiatric assessment. He reports to this provider "I just started right back to drinking." Pt states he left the hospital on 01/06/2020 and immediately began drinking again. He reports continued consumption of 30 Feura [place] Light daily, with occasional IPAs as well. He states that he had received a phone call from "Andre", his therapist at [facility], and believes he may have disclosed that he was not feeling well. He admits that this conversation occurred while he was intoxicated, and he is therefore not entirely sure what he reported. Pt states he does recall speaking with a labor representative from the [facility], but is not sure of what he said. He recalls police coming to his apartment and states "I was willing to come with them I guess." Pt states he does not recall the specific statements made over the phone, again stating this was due to his level of intoxication. Pt continued throughout our conversation to state that he realizes his alcohol use is greatly contributing to his depression, but states low mood and suicidality resolve when he commits himself to periods of sobriety. Pt reports his most recent rehab experience was not felt to be beneficial, and he would prefer not to return to [facility]. He does recall a positive experience 8 years ago at [facility] and states he would consider referral for rehab there. Pt believes his most consistent period of sobriety followed a stay at a partial program about 4-5 years ago. While patient is verbalizing a willingness to "do whatever you suggest, whatever you recommend" he also adds numerous contingencies including choosing a specific facility, opportunity to go home to pack his belongings prior to transfer. He was at least willing to have a conversation with Shawn through [facility] to discuss his options further. While patient admits his primary need is assistance with his alcohol abuse, he verbalizes willingness for inpatient psychiatric treatment if this were to be recommended. Pt denies SI during our encounter, and he reiterates that it is within the context of his alcohol use and then resolves. He states that he does have thoughts of hopelessness and worthlessness but that he has no active suicidal ideation, plans or intent to end his life. Past Psychiatric History Current Psychiatric Diagnosis: Alcohol abuse Outpatient Services: [facility] - therapy, medications provided by primary care physician through [facility] as well Previous Psych Admissions: [place] - 2018 [facility] - 09/2019, suicidality and alcohol intoxication/withdrawal [facility] - 11/19/2019 Do You Have Access To A Gun?: No (police removed rifle from his home ) History of Previous Suicide Attempt: No Describe Attempts in the Past: "ongoing for years" Past Medication Trials: History of sertraline for ~35 years. Has historically reported the medication was beneficial for his depressive symptoms, but only within periods of sobriety. Allergies Allergy/AdvReac Type Severity Reaction Status Date / Time No Known Allergies Allergy Verified 11/18/19 21:46 Home Medications Home Medications Medication Instructions Recorded Confirmed Type omeprazole 20 mg PO DAILY 09/24/19 01/10/20 History lisinopril 20 mg PO HS #30 tab 01/06/20 01/10/20 Rx nicotine [Nicoderm CQ] 21 mg TRANSDERMAL QAM #14 ea 01/06/20 01/10/20 Rx Family History Reports family history of alcoholism and drug abuse. Denied known family history of psychiatric conditions. Substance Abuse History Admits to utilizing chewing tobacco daily. Reports continued consumption of 20- 30 cans of beer daily. Pt has reportedly been to inpatient D&A rehab ~9-10 times. Reports history of admissions at [facility], [facility], and [facility]. Personal History Living Arrangements: Apartment (with roommates in [place]; limited contact with roommates) Highest Grade Completed: High School Graduate Employment Status: Unemployed Marital Status: (x2 estranged from previous spouses) Number Of Children: 3 adult children, estranged Beliefs That Will Affect Care: Alevism History of Legal Problems: history of legal issues, but no current charge - according to previous psychiatric documentation Patient History Medical History Alcohol dependence (Acute) Depression GERD (gastroesophageal reflux disease) Smoker Suicidal thoughts (Acute) Surgical History No history of previous surgery Family History Father , age 70 from [place] Coronary heart disease Social History Preferred Language: Burkinan Communication Ability: Effective Calender Let Off Operator Required: No Beliefs That Will Affect Care: Alevism marital status: Current Living Situation: Alone and Other Current Living Situation Comment: pt states lives in large farmhouse where two brothers unrelated to him live Feels Safe at Home: Yes Safety Concerns: Feels Safe At This Time Smoking Status: Current every day smoker Tobacco Type: cigarettes and smokeless tobacco ; Do You Dip or Chew Tobacco: Yes ; Second Hand Exposure: Yes ; Tobacco Cessation Education Requested by Patient: No Hx Alcohol Use: Yes Alcohol type: beer Hx Substance Use: No Physical Exam Psychiatric: Orientation: alert, oriented x 3 and + guarded (superficially cooperative ) Apperance: appropriately dressed and appeared stated age; + inappropriately groomed Overweight-appearing male, appearing anxious but not in acute distress. Pt is appropriately dressed for setting, wearing paper scrubs. His appears mildly unkempt, hair is matted in areas and there is stubble on his face. Eye Contact: good eye contact Motor Behavior: + tremor; + abnormal motor movements Speech: normal rate/rhythm/volume of speech Affect: + tearful affect Mood: no depressed mood ("When I'm not drinking, I'm fine. I can be happy.") Thought Process: goal directed thought process, clear/coherent thought process and thought association intact Thought Content: reality based without delusions, + hopelessness, + worthlessness and + loneliness Suicidal Thoughts: denies suicidal thoughts and denies suicidal intent Homicidal Thoughts: denies homicidal thoughts Hallucinations: no auditory hallucinations and no visual hallucinations Cognition: attention grossly intact and language grossly intact; + recent memory not intact (does not recall events leading to his admission) Estimated Intelligence: consistent with education level Insight: + limited insight Judgement: + limited judgement Vital Signs (Past 24 Hours): Last Vital Signs Temp 36.6 C 01/11/20 07:44 Pulse 80 01/11/20 07:44 Resp 18 01/11/20 07:44 BP 150/80 H 01/11/20 07:44 Pulse Ox 94 01/11/20 07:44 Review of Systems Constitutional: denied Cardiovascular: denied Respiratory: denied Gastrointestinal: denied Neurological: denied Psychiatric: denies symptoms other than stated above Total of at least 10 systems reviewed, pertinent positives as above and in HPI. Results & Data (PSY) Medications Administered Gabapentin (Neurontin) 600 mg PO Q6H [facility] Stop: 01/11/20 14:01 Last Admin: 01/11/20 08:03 Dose: 600 mg Documented by: [id number] Sodium Chloride (Nss 1000ml) 1,000 mls @ 100 mls/hr IV .Q10H [facility] Stop: 02/10/20 03:59 Last Admin: 01/11/20 04:29 Dose: 100 mls/hr Documented by: [id number] Thiamine HCl 100 mg/ Syringe 10 mls @ 2 mls/min IV QAM [facility] Stop: 02/10/20 08:59 Last Admin: 01/11/20 08:03 Dose: 2 mls/min Documented by: [id number] Folic Acid 1 mg/ Syringe 10 mls @ 5 mls/min IV QAM [facility] Stop: 02/10/20 08:59 Last Admin: 01/11/20 08:05 Dose: 5 mls/min Documented by: [id number] Miscellaneous (Remove Nicoderm Patch) 1 ea N/A DAILY@0859 [facility] Stop: 02/10/20 08:58 Last Admin: 01/11/20 08:09 Dose: Not Given Documented by: [id number] Miscellaneous (Remove Nicoderm Patch) 1 ea N/A DAILY@0859 [facility] Stop: 02/10/20 08:58 Last Admin: 01/11/20 08:05 Dose: 1 ea Documented by: [id number] Multivitamins/Minerals (Multivitamin W/ Minerals Tab) [facility] Stop: 02/10/20 08:59 Last Admin: 01/11/20 08:02 Dose: 1 tab Documented by: [id number] Nicotine (Nicoderm Cq) 21 mg TD QAM [facility] Stop: 02/10/20 08:59 Last Admin: 01/11/20 08:02 Dose: 21 mg Documented by: [id number] Pantoprazole Sodium (Protonix) 40 mg PO DAILY [facility] Stop: 05/03/20 08:59 Last Admin: 01/11/20 08:03 Dose: 40 mg Documented by: [id number] Coding Level of Care Code 98052 U Intl Hosp Care Lvl 3
[2020-01-11] MEDS: diazePAM 5 MG TABLET PO PRN ×2 (13:17→15:42)
[2020-01-11] MEDS ORDERED: lisinopriL 20 MG TAB PO SCH (21:00)
[2020-01-11] MEDS ORDERED: LORazepam 1 MG TAB PO STA (23:57)
[2020-01-12] MEDS: SODIUM CHLORIDE 0.9% 1000ML 1,000 ML IV SCH (01:16)
[2020-01-12] MEDS: GABAPENTIN 600 MG TAB PO SCH (06:10)
[2020-01-12 07:37] LABS: Hematocrit (blood only) 43.4 % (42-52); Hemoglobin 15.4 g/dL (14.0-18.0); Mean Corpuscular Hemoglobin 32.5 pg (25-34); Mean Corpuscular Hgb Conc 35.5 g/dL (32-36); Mean Corpuscular Volume 91.6 fL (80-100); Platelet Count 118 K/uL (130-400); RDW Coefficient of Variation 12.1 % (11.5-14.5); RDW Standard Deviation 40.5 fL (36.4-46.3); Red Blood Count 4.74 M/uL (4.7-6.1); White Blood Count 3.11 K/uL (4.8-10.8)
[2020-01-12] MEDS: THIAMINE HCL 100 MG in SYRINGE 9 ML IV SCH (08:02)
[2020-01-12] MEDS: FOLIC ACID 1 MG in SYRINGE 9.8 ML IV SCH (08:02)
[2020-01-12] MEDS: CEROVITE ADV FORMULA TAB PO SCH (08:06)
[2020-01-12] MEDS: PANTOprazole 40 MG TAB PO SCH (08:06)
[2020-01-12] MEDS: NICOTINE 21 MG/24 HR TDSY TD SCH (08:06)
[2020-01-12 08:07] LABS: BUN Creatinine Ratio 8.9 (10-20); Calcium 8.6 mg/dl (8.5-10.1); Creatinine Clr Calc Pharmacy 85.5 ml/min; Est GFR (African American) 99.9; Est GFR (Non-African American) 86.2; Potassium 3.7 mmol/L (3.5-5.1)
--- NOTE | 2020-01-12 08:58 | Hospitalist Progress Note ---
Date of Service January 12, 2020 Assessment & Plan (1) Suicidal ideations: (2) Alcohol withdrawal: (3) Alcohol intoxication: (4) GERD (gastroesophageal reflux disease): (5) Tobacco use: (6) Alcohol dependence: (7) Hypertension: (8) Depression: (9) Anxiety: (10) DVT prophylaxis: ASSESSMENT AND PLAN: This is a 59-year-old male with history of alcoholism, suicidal ideation, depression comes with alcoholism again and suicidal ideation. 1. Alcoholism: He was recently in rehabilitation. Now currently again he is willing to back go to rehab. We placed him on alcohol withdrawal protocol with gabapentin, IV Ativan p.r.n., IV banana bag, IV thiamine, IV folic acid and p.o. vitamins. He is now medically stable for D/C to inpatatie Psych or D&A rehab 2. Suicidal ideations: This is a recurring problem. Admitted in September and December for the same issues. Seen by psychiatry. Cleared from withdrawal. 3. Depression as per psychiatry. 4. Deep venous thrombosis prophylaxis, sequential compression devices. Labs Checked ROS-No Headache, No Visual Changes, No Nausea, No Vomiting, No Fever, No Chills, No Neck Pain or Stiffness, No Chest Pain, No Palpitations, No SOB, No FONTENOT, No Cough, No Sputum, No Wheezing, No Abdominal Pain, No Diarrhea, No Hematemesis, No Hemoptysis, No Unexpected Weight Loss, No Flank pain, No Melena, No Hematochezia, No Frequency, No Urgency, No Burning, No Hematuria, No Rashes, No Diaphoresis. Appetite is Normal Physical Exam Gen-AAO x 3, NAD, Afebrile, pleasant Head-NCAT, EOMI, PERRLA, Anicteric Sclera, No Posterior Pharyngeal Erythema Neck-Supple, No JVD, No Thyromegaly, No Masses, No LAD, No Bruits Lungs-Clear to Auscultation Bilaterally, No Rales, No Rhonchi, No Wheezing, No Crepitus Chest-No S4, +S1, +S2, No S3, No Murmurs, No Rubs, No Gallops, No Ectopy Abdomen-Soft, Bowel Sounds Present, Non Tender, Non Distended, No Hepatomegaly, No Splenomegaly, No Palpable Masses, No Rebound, No Rigidity, No Guarding Musculoskeletal-Full Range of Motion Bilaterally, No CVAT Extremities-No Cyanosis, No Clubbing, No Edema Nuero-Cranial Nerves II-XII grossly intact, Motor WNL, DTRs WNL, Strength WNL, Non Focal Psych-Normal Mood Admission and Anticipated Discharge Date Admission Date: January 11, 2020 Anticipated date of discharge: 01/12/20 Results & Data Results & Data ([facility] Vital Signs (Past 12 Hours) Vital Signs Temp Pulse Pulse Pulse Resp BP Pulse Ox 01/12/20 08:00 58 L 01/12/20 07:26 36.4 C L 59 L 18 156/81 H 96 01/12/20 03:58 36.5 C 68 18 122/75 95 01/11/20 23:53 69 01/11/20 23:06 36.8 C 68 18 148/79 H 92 (1) Alcohol withdrawal Complication of substance-induced condition: with unspecified complication Qualified Code(s): F10.239 - Alcohol dependence with withdrawal, unspecified (2) Alcohol intoxication Complication of substance-induced condition: with unspecified complication Qualified Code(s): F10.929 - Alcohol use, unspecified with intoxication, unspecified (3) Alcohol dependence Substance use status: unspecified alcohol-induced disorder Qualified Code(s): F10.29 - Alcohol dependence with unspecified alcohol-induced disorder
--- NOTE | 2020-01-12 11:05 | Discharge Summary ---
Date of Service January 12, 2020 Admission HPI Per Admitting Provider 59-year-old male with past medical history significant for alcoholism, depression, suicidal ideations presents with thought to hurt himself. He was recently in the hospital on 01/03/2020 and got discharged on 01/06/2020, at that time he came with alcoholism and suicidal ideations. He was in the hospital for similar problem in September and he was discharged to alcohol rehabilitation and he was discharged back home, when at that time, he did not answer for a follow up call, and when the weapons specialist went, he was drinking and does complain of that he is trying to kill himself and he was brought into the hospital, he was treated with alcohol withdrawal protocol and also seen by psychiatrist and discharged back home. Now again comes back to the hospital says that at home, his gun was taken out, but he was having thoughts to kill himself by his knife, still drinking alcohol. He says he is drinking about 30 beers a day. His alcohol level has in 200's the ER .Denies any other complaints. Denies any headache, no blurred vision, no earache, no runny nose, no sore throat, no cough, no fever, no chills, no chest pain or shortness of breath. Says he vomited at home, but currently no nausea or vomiting. He says he is eating okay. Denies any abdominal pain, no diarrhea or constipation. Denies any blood in stools or black stools. Normal bladder movements. No swelling in the legs, no rash. Admission Exam Per Admitting Provider Gen-AAO x 3, NAD, Afebrile, Shaky Head-NCAT, EOMI, PERRLA, Anicteric Sclera, No Posterior Pharyngeal Erythema Neck-Supple, No JVD, No Thyromegaly, No Masses, No LAD, No Bruits Lungs-Clear to Auscultation Bilaterally, No Rales, No Rhonchi, No Wheezing, No Crepitus Chest-No S4, +S1, +S2, No S3, No Murmurs, No Rubs, No Gallops, No Ectopy Abdomen-Soft, Bowel Sounds Present, Non Tender, Non Distended, No Hepatomegaly, No Splenomegaly, No Palpable Masses, No Rebound, No Rigidity, No Guarding Musculoskeletal-Full Range of Motion Bilaterally, No CVAT Extremities-No Cyanosis, No Clubbing, No Edema Nuero-Cranial Nerves II-XII grossly intact, Motor WNL, DTRs WNL, Strength WNL, Non Focal Psych-Normal Mood Principal Diagnosis (1) Suicidal ideations: (2) Alcohol withdrawal: (3) Alcohol intoxication: (4) GERD (gastroesophageal reflux disease): (5) Tobacco use: (6) Alcohol dependence: (7) Hypertension: (8) Depression: (9) Anxiety Discharge Exam Gen-AAO x 3, NAD, Afebrile, pleasant Head-NCAT, EOMI, PERRLA, Anicteric Sclera, No Posterior Pharyngeal Erythema Neck-Supple, No JVD, No Thyromegaly, No Masses, No LAD, No Bruits Lungs-Clear to Auscultation Bilaterally, No Rales, No Rhonchi, No Wheezing, No Crepitus Chest-No S4, +S1, +S2, No S3, No Murmurs, No Rubs, No Gallops, No Ectopy Abdomen-Soft, Bowel Sounds Present, Non Tender, Non Distended, No Hepatomegaly, No Splenomegaly, No Palpable Masses, No Rebound, No Rigidity, No Guarding Musculoskeletal-Full Range of Motion Bilaterally, No CVAT Extremities-No Cyanosis, No Clubbing, No Edema Nuero-Cranial Nerves II-XII grossly intact, Motor WNL, DTRs WNL, Strength WNL, Non Focal Psych-Normal Mood Discharge Data Allergies Allergy/AdvReac Type Severity Reaction Status Date / Time No Known Allergies Allergy Verified 11/18/19 21:46 Consultations 01/10/20 23:27 ED Decision to Admit Stat 01/11/20 01:27 Consult Case Management - Discharge Planning Routine 01/11/20 02:14 Consult Behavioral Health Liaison Routine 01/11/20 08:00 Consult Psychiatry Routine Current Diagnoses Alcohol dependence with withdrawal, unspecified (01/11/20) Alcohol dependence with unspecified alcohol-induced disorder (01/11/20) Alcohol use, unspecified with intoxication, unspecified (01/11/20) Major depressive disorder, single episode, unspecified (01/11/20) Anxiety disorder, unspecified (01/11/20) Essential (primary) hypertension (01/11/20) Gastro-esophageal reflux disease without esophagitis (01/11/20) Suicidal ideations (01/11/20) Encounter for prophylactic measures, unspecified (01/11/20) Tobacco use (01/11/20) Allergies No Known Allergies Allergy (Verified 11/18/19 21:46) Height/Weight/Isolation Height 5 ft 10 in Weight 87.6 kg Chemistry 01/10/20 01/12/20 12:54 07:23 Sodium 135 L 139 Potassium 3.5 3.7 Chloride 102 108 H Carbon Dioxide 27 28 Anion Gap 7.0 3.0 BUN 11 9 Creatinine 1.00 0.96 Glucose 109 H 105 H Urinalysis 01/10/20 13:29 Urine Color Yellow Urine Appearance Clear Urine pH 5.5 Ur Specific [place] 1.009 Urine Protein Negative Urine Glucose (UA) Negative Urine Ketones Negative Urine Blood Negative Urine Nitrite Negative Urine Bilirubin Negative Hospital Course (1) Suicidal ideations: (2) Alcohol withdrawal: (3) Alcohol intoxication: (4) GERD (gastroesophageal reflux disease): (5) Tobacco use: (6) Alcohol dependence: (7) Hypertension: (8) Depression: (9) Anxiety: (10) DVT prophylaxis: ASSESSMENT AND PLAN: This is a 59-year-old male with history of alcoholism, suicidal ideation, depression comes with alcoholism again and suicidal ideation. 1. Alcoholism: He was recently in rehabilitation. Now currently again he is willing to back go to rehab. We placed him on alcohol withdrawal protocol with gabapentin, IV Ativan p.r.n., IV banana bag, IV thiamine, IV folic acid and p.o. vitamins. He is now medically stable for D/C D&A rehab 2. Suicidal ideations: This is a recurring problem. Admitted in September and December for the same issues. Seen by psychiatry. Cleared from withdrawal. 302 signed off 3. Depression as per psychiatry. Total Time Total Time Spent Total Time Spent (In Minutes): 45 mins Total Time Includes: Examination of the Patient, Discharge Planning, Medication Reconciliation and Communication With Other Providers Discharge Plan Discharge Items Patient Disposition: Home - Self-Care Reason For Visit: ALCOHOLISM, SUICIDAL IDEATIONS Discharge Diagnosis: (1) Suicidal ideations: (2) Alcohol withdrawal: (3) Alcohol intoxication: (4) GERD (gastroesophageal reflux disease): (5) Tobacco use: (6) Alcohol dependence: (7) Hypertension: (8) Depression: (9) Anxiety Condition on Discharge: Good Health Concerns: Alcohol use Activity: Resume your previous activity Lifting: Gradually increase as tolerated Bathing: No limitations Sexual Activity: When tolerated Exercise/Sports: Gradually increase as tolerated Driving/Machine Use: No limitations Weightbearing: Full weightbearing Non-emergency contact: Primary Care Provider and Psychiatrist Call non-emergency contact if: you have any medication questions Follow-up/Referrals: PCP,NO [Primary Care Provider] - Diet: Regular Addtl Attending Provider Instructions: none Pending Studies at Discharge: No Stand-Alone Forms: [facility], Smoking Cessation, Suicide Prevention Resources Medications and DC Order Prescriptions: New clonidine HCl 0.1 mg Tablet 0.1 mg PO Q4H Qty: 18 RF: 0 Certavite-Antioxidant 18-400 mg-mcg Tablet 1 tab PO QAM Qty: 100 RF: 0 thiamine HCl (vitamin B1) 100 mg tablet 100 mg PO DAILY Qty: 14 RF: 0 folic acid 1 mg tablet 1 mg PO DAILY Qty: 14 RF: 0 oxazepam 15 mg capsule 15 mg PO Q8H PRN (Reason: alcohol withdrawal) Qty: 20 RF: 0 Continued omeprazole 20 mg capsule,delayed release(DR/EC) 20 mg PO DAILY RF: 0 nicotine [Nicoderm CQ] 21 mg/24 hr Patch 24 Hour 21 mg transdermal QAM Qty: 14 RF: 1 lisinopril 20 mg tablet 20 mg PO HS Qty: 30 RF: 1 Discharge Orders: Discharge Order (Routine); Ordered 01/12/20 Ordered By: Tez Lovett Admission Data Admit Date/Time: 01/11/20 00:42 Attending Provider: Tez Lovett Admit Provider: Kahlil Del Rio Primary Care Provider: PCP,NO Other Providers: Kahlil Del Rio ; Zulema Rodriges
--- NOTE | 2020-01-12 11:12 | Psychiatric Progress Note ---
Date of Service January 12, 2020 Impression / Recommendations Impression Etoh use disorder--no SI, does not meet criteria for inpatient hospitalization, agreeing to rehab. 302 dispositioned. Discussed his plan to maintain sobriety pending rehab if unable to go today and was rather minimal but agreeing to rehab is progress. Risk Factors Assessment Do You Have Access To A Gun?: No (police removed rifle from his home ) Protective Factors Assessment Employed: No Interval History Chief Complaint "I have the help I need to get to rehab". Review of Systems Notes denied Subjective Subjective Patient was seen & assessed and interval progress reviewed with liaison. Interim history reviewed. Patient known to me from previous hospitalizations, hx of SI mainly solely in setting of ETOH intoxication then denies after. This stay he is agreeing to inpatient rehab and met with county service support representative. Physical Exam Psychiatric Orientation: alert Apperance: appropriately dressed Eye Contact: + fair eye contact Motor Behavior: steady gait and station Speech: normal rate/rhythm/volume of speech Affect: euthymic affect Mood: no depressed mood Thought Process: goal directed thought process Thought Content: reality based without delusions Suicidal Thoughts: denies suicidal thoughts Homicidal Thoughts: denies homicidal thoughts Hallucinations: no auditory hallucinations and no visual hallucinations Vital Signs (Past 24 Hours) Last Vital Signs Temp 36.4 C L 01/12/20 07:26 Pulse 58 L 01/12/20 08:00 Resp 18 01/12/20 07:26 BP 156/81 H 01/12/20 07:26 Pulse Ox 96 01/12/20 07:26 Results & Data ([facility]) Laboratory Results Laboratory Results - last 24 hr 01/12/20 01/12/20 07:23 07:23 WBC 3.11 L RBC 4.74 Hgb 15.4 Hct 43.4 MCV 91.6 MCH 32.5 MCHC 35.5 RDW Std Deviation 40.5 RDW Coeff of Eloy 12.1 Plt Count 118 L MPV 10.0 Sodium 139 Potassium 3.7 Chloride 108 H Carbon Dioxide 28 Anion Gap 3.0 BUN 9 Creatinine 0.96 Est Cr Clr Drug Dosing 85.5 Est GFR ( Amer) 99.9 Est GFR (Non-Af Amer) 86.2 BUN/Creatinine Ratio 8.9 L Glucose 105 H Calcium 8.6 Current Inpatient Medications Current Inpatient Medications: Current Inpatient Medications Acetaminophen (Tylenol) 650 mg PO Q4H PRN PRN Reason: Pain or Fever Stop: 02/10/20 01:26 Clonidine HCl (Catapres) 0.1 mg PO Q4H PRN PRN Reason: Hypertension Stop: 02/10/20 01:26 Last Admin: 01/11/20 15:42 Dose: 0.1 mg Documented by: Diazepam (Valium) 5 mg PO BID PRN PRN Reason: Anxiety/Agitation Stop: 02/10/20 12:52 Last Admin: 01/11/20 15:42 Dose: 5 mg Documented by: Gabapentin (Neurontin) 600 mg PO Q8H [facility] Stop: 01/12/20 14:01 Last Admin: 01/12/20 06:10 Dose: 600 mg Documented by: Gabapentin (Neurontin) 600 mg PO Q12H [facility] Stop: 01/13/20 14:01 Gabapentin (Neurontin) 600 mg PO Q24H [facility] Stop: 01/14/20 14:01 Thiamine HCl 100 mg/ Syringe 10 mls [facility] 2 m[facility] Stop: 02/10/20 08:59 Last Admin: 01/12/20 08:02 Dose: 2 mls/min Documented by: Folic Acid 1 mg/ Syringe 10 mls @ 5 mls/min IV QAM [facility] Stop: 02/10/20 08:59 Last Admin: 01/12/20 08:02 Dose: 5 mls/min Documented by: Lorazepam (Ativan) 1 mg in 2 mls @ 2 mls/min IV UD PRN; Protocol PRN Reason: EtOH Withdrawl AWSS Score 6,7 Stop: 02/10/20 01:26 Lorazepam (Ativan) 2 mg in 4 mls @ 4 mls/min IV UD PRN; Protocol PRN Reason: EtOH Withdrawl AWSS Score 8,9 Stop: 02/10/20 01:26 Lorazepam (Ativan) 3 mg in 6 mls @ 4 mls/min IV ONCE PRN; Protocol PRN Reason: EtOH Withdrawl AWSS Score >=10 Stop: 02/10/20 01:26 Lisinopril (Zestril) 20 mg PO HS [facility] Stop: 02/10/20 20:59 Last Admin: 01/11/20 21:19 Dose: 20 mg Documented by: Miscellaneous (Remove Nicoderm Patch) 1 ea N/A DAILY@0859 [facility] Stop: 02/10/20 08:58 Last Admin: 01/12/20 08:07 Dose: Not Given Documented by: Miscellaneous (Remove Nicoderm Patch) 1 ea N/A DAILY@0859 [facility] Stop: 02/10/20 08:58 Last Admin: 01/12/20 08:07 Dose: 1 ea Documented by: Multivitamins/Minerals (Multivitamin W/ Minerals Tab) 1 tab PO QAM [facility] Stop: 02/10/20 08:59 Last Admin: 01/12/20 08:06 Dose: 1 tab Documented by: Nicotine (Nicoderm Cq) 21 mg TD QAM [facility] Stop: 02/10/20 08:59 Last Admin: 01/12/20 08:06 Dose: 21 mg Documented by: Nitroglycerin (Nitrostat) 0.4 mg SL UD PRN PRN Reason: Chest Pain Stop: 02/10/20 01:26 Ondansetron HCl (Zofran) 4 mg IV Q6H PRN PRN Reason: Nausea Stop: 02/10/20 01:26 Pantoprazole Sodium (Protonix) 40 mg PO DAILY [facility] Stop: 02/10/20 08:59 Last Admin: 01/12/20 08:06 Dose: 40 mg Documented by: Mental Health & Subst Abuse Tx Therapist Name of Therapist: Andre @ [facility] Lining Repairer Name of Lining Repairer: Shawn @ [place] Post Discharge Appointments Primary Care Physician Name Of Family Doctor: [facility]
[2020-01-13] MEDS ORDERED: GABAPENTIN 600 MG TAB PO SCH (02:00)
[2020-01-14] MEDS ORDERED: GABAPENTIN 600 MG TAB PO SCH (14:00)
== END 2020-01-12 13:34 | disposition home or self-care (01) | DRG 897 ==
LOC: ED 12:29 → 2N 01-11 00:42

== ENCOUNTER 2020-03-16 12:56 | Inpatient (IN) ==
[2020-03-16] MEDS ORDERED: SODIUM CHLORIDE 0.9% 1000ML 1,000 ML IV ONE (13:25)
[2020-03-16] MEDS ORDERED: MULTI-VITAMIN INFUSION 10 ML, THIAMINE HCL 100 MG, FOLIC ACID 1 MG in SODIUM CHLORIDE 0... IV ONE (13:25)
--- NOTE | 2020-03-16 13:29 | Emergency Department Note ---
History of Present Illness General Chief complaint: Mental Health Evaluation Stated complaint: MENTAL HEALTH EVAL Time Seen by Provider: 03/16/20 13:03 Source: patient Mode of arrival: other (police ) Limitations: intoxication History of Present Illness Provider complaint: Alcohol abuse, depression Onset (ago): unknown Location: abdomen Radiation: non-radiation Severity: severe and similar to prior episodes Pain Consistency: + constant Quality: + constant Relieved By: + none Exacerbated By: + eating Associated symptoms: + chest pain, + malaise and + nausea/vomiting Treatments prior to arrival: none This is a 59-year-old male who presents to the emergency department via police after calling them stating he was having worsening depression. Patient is well- known to them as well as well-known to the emergency room with a history of alcohol abuse. Patient states he is not currently taking the antidepressant medication as previously prescribed. States he drinks 1 case of beer a day. Patient denies any additional drug use. States he has previously been admitted medically due to his alcohol abuse as well as evidence of alcohol withdrawal. Patient denies ever being told he had alcohol withdrawal related seizures. Patient states he also takes medication for high blood pressure. Patient states he has had ongoing generalized abdominal pain as well as nausea and vomiting. Denies blood in the emesis, denies black or bloody stools. Pt seen during a time of high acuity and national emergency pandemic while wearing PPE. Home Medications Home Medications Medication Instructions Recorded Confirmed Type clonidine HCl 0.1 mg PO Q4H 03/16/20 03/16/20 History lisinopril 20 mg PO HS 03/16/20 03/16/20 History omeprazole 20 mg PO DAILY 03/16/20 03/16/20 History sertraline 100 mg PO DAILY 03/16/20 03/16/20 History Allergies Allergy/AdvReac Type Severity Reaction Status Date / Time No Known Allergies Allergy Verified 03/16/20 14:25 Past Med/Surg History Medical History Alcohol dependence (Acute) Depression GERD (gastroesophageal reflux disease) Smoker Suicidal thoughts Surgical History No history of previous surgery Family History Father , age 70 from [place] Coronary heart disease Social History Preferred Language: Mosotho Communication Ability: Effective 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 Beliefs That Will Affect Care: None marital status: Current Living Situation: Other Current Living Situation Comment: pt states lives in large farmhouse where two brothers unrelated to him live Other Information That Helps Us Care for You: No Feels Safe at Home: Yes Safety Concerns: Feels Safe At This Time Smoking Status: Current every day smoker Tobacco Type: cigarettes ; Do You Dip or Chew Tobacco: Yes ; Second Hand Exposure: Yes ; Tobacco Cessation Education Requested by Patient: No Hx Alcohol Use: Yes Alcohol type: beer Hx Substance Use: No Review of Systems See HPI for pertinent positives & negatives. and A total of 10 systems reviewed and were otherwise negative Physical Exam Vital Signs Vital Signs - 24 hr 03/16/20 12:58 03/16/20 13:25 03/16/20 13:32 Temperature 36.8 C Temperature Source Oral Pulse Rate 92 H 81 83 Pulse Rate from SpO2 Sensor 80 84 Pulse Rhythm Respiratory Rate 18 28 H 31 H Blood Pressure 153/108 H 172/100 H Blood Pressure Mean 123 129 Blood Pressure Position Sitting Pulse Oximetry 94 96 95 Oxygen Delivery Method Room Air Room Air Oxygen Flow Rate Sepsis Recent Fever Within 48 Hours No Sepsis New/Unexplained Change in Mental Status No Sepsis Action Taken by Nursing No Action Required Oxygen Flow Rate - Titration Fraction of Inspired Oxygen - Titration 03/16/20 13:47 03/16/20 14:00 03/16/20 14:44 Temperature Temperature Source Pulse Rate 87 81 82 Pulse Rate from SpO2 Sensor 87 86 82 Pulse Rhythm Respiratory Rate 18 15 13 Blood Pressure 147/81 H Blood Pressure Mean 106 Blood Pressure Position Pulse Oximetry 93 92 94 Oxygen Delivery Method Room Air Room Air Room Air Oxygen Flow Rate Sepsis Recent Fever Within 48 Hours Sepsis New/Unexplained Change in Mental Status Sepsis Action Taken by Nursing Oxygen Flow Rate - Titration Fraction of Inspired Oxygen - Titration 03/16/20 14:45 03/16/20 14:46 03/16/20 15:09 Temperature Temperature Source Pulse Rate 79 85 88 Pulse Rate from SpO2 Sensor 77 84 89 Pulse Rhythm Respiratory Rate 31 H 21 Blood Pressure 183/92 H Blood Pressure Mean 134 Blood Pressure Position Pulse Oximetry 95 95 94 Oxygen Delivery Method Room Air Oxygen Flow Rate Sepsis Recent Fever Within 48 Hours Sepsis New/Unexplained Change in Mental Status Sepsis Action Taken by Nursing Oxygen Flow Rate - Titration Fraction of Inspired Oxygen - Titration 03/16/20 15:10 03/16/20 15:11 03/16/20 15:30 Temperature Temperature Source Pulse Rate 89 85 92 H Pulse Rate from SpO2 Sensor 89 85 88 Pulse Rhythm Respiratory Rate 22 19 25 H Blood Pressure 147/68 H 134/79 Blood Pressure Mean 85 97 Blood Pressure Position Pulse Oximetry 92 93 95 Oxygen Delivery Method Oxygen Flow Rate Sepsis Recent Fever Within 48 Hours Sepsis New/Unexplained Change in Mental Status Sepsis Action Taken by Nursing Oxygen Flow Rate - Titration Fraction of Inspired Oxygen - Titration 03/16/20 15:57 03/16/20 16:00 03/16/20 16:02 Temperature 36.8 C Temperature Source Pulse Rate 88 86 Pulse Rate from SpO2 Sensor 87 87 Pulse Rhythm Respiratory Rate 21 14 Blood Pressure 131/71 133/66 Blood Pressure Mean 89 73 Blood Pressure Position Pulse Oximetry 89 L 89 L 89 L Oxygen Delivery Method Room Air Nasal Cannula Oxygen Flow Rate 0 Sepsis Recent Fever Within 48 Hours Sepsis New/Unexplained Change in Mental Status Sepsis Action Taken by Nursing Oxygen Flow Rate - Titration 2 Fraction of Inspired Oxygen - Titration 94 03/16/20 16:04 03/16/20 16:30 03/16/20 17:00 Temperature Temperature Source Pulse Rate 86 88 96 H Pulse Rate from SpO2 Sensor 88 96 H Pulse Rhythm Regular Respiratory Rate 14 15 17 Blood Pressure 119/62 130/68 Blood Pressure Mean 70 78 Blood Pressure Position Pulse Oximetry 94 96 97 Oxygen Delivery Method Nasal Cannula Nasal Cannula Nasal Cannula Oxygen Flow Rate 2 2 2 Sepsis Recent Fever Within 48 Hours Sepsis New/Unexplained Change in Mental Status Sepsis Action Taken by Nursing Oxygen Flow Rate - Titration Fraction of Inspired Oxygen - Titration 03/16/20 17:30 03/16/20 18:00 03/16/20 18:01 Temperature Temperature Source Pulse Rate 90 92 H 93 H Pulse Rate from SpO2 Sensor 90 92 H 93 H Pulse Rhythm Respiratory Rate 20 21 20 Blood Pressure 156/83 H 121/99 Blood Pressure Mean 103 118 Blood Pressure Position Pulse Oximetry 95 94 95 Oxygen Delivery Method Nasal Cannula Nasal Cannula Nasal Cannula Oxygen Flow Rate 2 2 2 Sepsis Recent Fever Within 48 Hours Sepsis New/Unexplained Change in Mental Status Sepsis Action Taken by Nursing Oxygen Flow Rate - Titration Fraction of Inspired Oxygen - Titration 03/16/20 18:30 03/16/20 18:31 03/16/20 19:00 Temperature Temperature Source Pulse Rate 105 H 102 H 85 Pulse Rate from SpO2 Sensor 103 H 103 H 85 Pulse Rhythm Respiratory Rate 16 19 19 Blood Pressure 155/102 H Blood Pressure Mean 119 Blood Pressure Position Pulse Oximetry 93 94 96 Oxygen Delivery Method Nasal Cannula Nasal Cannula Oxygen Flow Rate 2 2 Sepsis Recent Fever Within 48 Hours Sepsis New/Unexplained Change in Mental Status Sepsis Action Taken by Nursing Oxygen Flow Rate - Titration Fraction of Inspired Oxygen - Titration 03/16/20 19:27 Temperature Temperature Source Pulse Rate 93 H Pulse Rate from SpO2 Sensor 95 H Pulse Rhythm Respiratory Rate 16 Blood Pressure 170/95 H Blood Pressure Mean 107 Blood Pressure Position Pulse Oximetry 94 Oxygen Delivery Method Oxygen Flow Rate Sepsis Recent Fever Within 48 Hours Sepsis New/Unexplained Change in Mental Status Sepsis Action Taken by Nursing Oxygen Flow Rate - Titration Fraction of Inspired Oxygen - Titration GENERAL: alert, ill appearing, intoxicated appearing, well nourished, mild distress, non-toxic EYE EXAM: normal conjunctiva, PERRL and EOM's grossly intact OROPHARYNX: no exudate, no erythema, lips, buccal mucosa, and tongue normal and mucous membranes are moist NECK: supple, no nuchal rigidity, no adenopathy, non-tender LUNGS: Clear to auscultation. Normal chest wall mechanics, no w/r/r HEART: no murmurs, S1 normal and S2 normal ABDOMEN: abdomen soft, non-tender, normo-active bowel sounds, no masses, no rebound or guarding. BACK: Back is symmetrical on inspection and there is no deformity, no midline tenderness, no CVA tenderness. SKIN: no rashes and no bruising UPPER EXTREMITIES: upper extremities are grossly normal. FROM, nml pulses b/l. LOWER EXTREMITIES: No pitting edema. FROM, nml pulses b/l. NEURO EXAM: Normal sensorium, cranial nerves II-XII grossly intact, normal s peech, no gross weakness of arms, no gross weakness of legs. Gross sensation intact. Course Course 1824: Pt still intermittently requiring valium. Mild hypertension noted. No significant tachycardia. 2099: No available placement psychiatrically, in part bc of withdrawal risk and abnormal labs. 2119: Case discussed with Dr. Roland. Administered Medications Clonidine HCl (Catapres) 0.1 mg PO BID [facility] Stop: 04/15/20 22:54 Last Admin: 03/18/20 21:08 Dose: 0.1 mg Documented by: [id number] Admin: 03/18/20 08:34 Dose: 0.1 mg Documented by: [id number] Admin: 03/17/20 20:58 Dose: 0.1 mg Documented by: [id number] Admin: 03/17/20 09:06 Dose: 0.1 mg Documented by: [id number] Admin: 03/16/20 23:58 Dose: 0.1 mg Documented by: [id number] Enoxaparin Sodium (Lovenox) 40 mg SQ [facility] Stop: 04/16/20 08:59 Last Admin: 03/18/20 08:35 Dose: 40 mg Documented by: [id number] Admin: 03/17/20 09:07 Dose: 40 mg Documented by: [id number] Folic Acid (Folvite) 1 mg PO [facility] Stop: 04/15/20 22:54 Last Admin: 03/18/20 08:33 Dose: 1 mg Documented by: [id number] Admin: 03/17/20 09:06 Dose: 1 mg Documented by: [id number] Admin: 03/16/20 23:59 Dose: 1 mg Documented by: [id number] Gabapentin (Neurontin) 600 mg PO Q12H [facility] Stop: 03/19/20 09:59 Last Admin: 03/18/20 21:07 Dose: 600 mg Documented by: [id number] Lorazepam (Ativan) 1 mg in 2 mls @ 2 mls/min IV UD PRN; Protocol PRN Reason: EtOH Withdrawl AWSS Score 6,7 Stop: 04/15/20 22:54 Last Admin: 03/17/20 00:00 Dose: 1 mls/min Documented by: [id number] Lorazepam (Ativan) 2 mg in 4 mls @ 4 mls/min IV UD PRN; Protocol PRN Reason: EtOH Withdrawl AWSS Score 8,9 Stop: 04/15/20 22:54 Last Admin: 03/17/20 20:56 Dose: 4 mls/min Documented by: [id number] Lisinopril (Zestril) 20 mg PO HS [facility] Stop: 04/16/20 20:59 Last Admin: 03/18/20 21:07 Dose: 20 mg Documented by: [id number] Admin: 03/17/20 20:58 Dose: 20 mg Documented by: [id number] Loperamide HCl (Imodium) 2 mg PO PRN PRN PRN Reason: Diarrhea Stop: 04/17/20 13:09 Last Admin: 03/18/20 14:04 Dose: 2 mg Documented by: [id number] Multivitamins (Multivitamin Tab) 1 tab PO [facility] Stop: 04/16/20 08:59 Last Admin: 03/18/20 08:35 Dose: 1 tab Documented by: [id number] Admin: 03/17/20 09:06 Dose: 1 tab Documented by: [id number] Pantoprazole Sodium (Protonix) 40 mg PO DAILY [facility] Stop: 04/16/20 08:59 Last Admin: 03/18/20 08:33 Dose: 40 mg Documented by: [id number] Admin: 03/17/20 09:06 Dose: 40 mg Documented by: [id number] Sertraline HCl (Zoloft) 100 mg PO DAILY [facility] Stop: 04/17/20 08:59 Last Admin: 03/18/20 08:33 Dose: 100 mg Documented by: [id number] Thiamine HCl (Vitamin B-1) 100 mg PO [facility] Stop: 04/15/20 22:54 Last Admin: 03/18/20 08:33 Dose: 100 mg Documented by: [id number] Admin: 03/17/20 09:06 Dose: 100 mg Documented by: [id number] Admin: 03/16/20 23:59 Dose: 100 mg Documented by: [id number] Discontinued Medications Calcium Gluconate (Calcium Gluconate 10%) Confirm Administered Dose 1,000 mg IV .STK-MED ONE Stop: 03/16/20 21:48 Last Admin: 03/16/20 21:54 Dose: Not Given Documented by: [id number] Diazepam (Valium) 5 mg IV NOW STA Stop: 03/16/20 15:00 Last Admin: 03/16/20 15:06 Dose: 5 mg Documented by: [id number] Diazepam (Valium) 5 mg IV NOW STA Stop: 03/16/20 15:41 Last Admin: 03/16/20 15:56 Dose: 5 mg Documented by: [id number] Diazepam (Valium) 5 mg IV NOW STA Stop: 03/16/20 17:45 Last Admin: 03/16/20 17:50 Dose: 5 mg Documented by: [id number] Diazepam (Valium) 5 mg IV NOW STA Stop: 03/16/20 19:36 Last Admin: 03/16/20 19:52 Dose: 5 mg Documented by: [id number] Famotidine (Pepcid 20mg Iv Push) 20 mg IV ONE STA Stop: 03/16/20 15:41 Last Admin: 03/16/20 15:49 Dose: 20 mg Documented by: [id number] Gabapentin (Neurontin) 1,200 mg PO NOW STA Stop: 03/16/20 21:20 Last Admin: 03/16/20 21:54 Dose: 1,200 mg Documented by: [id number] Gabapentin (Neurontin) 600 mg PO Q6H [facility] Stop: 03/17/20 09:59 Last Admin: 03/17/20 09:05 Dose: 600 mg Documented by: [id number] Admin: 03/17/20 04:36 Dose: 600 mg Documented by: [id number] Gabapentin (Neurontin) 600 mg PO Q8H [facility] Stop: 03/18/20 09:59 Last Admin: 03/18/20 08:35 Dose: 600 mg Documented by: [id number] Admin: 03/18/20 00:25 Dose: 600 mg Documented by: [id number] Admin: 03/17/20 17:06 Dose: 600 mg Documented by: [id number] Sodium Chloride (Nss 1000ml) 1,000 mls @ 999 mls/hr IV .Q1H1M ONE Stop: 03/16/20 14:25 Last Infusion: 03/16/20 14:50 Dose: 0 mls/hr Documented by: [id number] Admin: 03/16/20 13:49 Dose: 999 mls/hr Documented by: [id number] Multivitamins 10 ml/ Thiamine HCl 100 mg/ Folic Acid 1 mg/Sodium Chloride 1,011.2 mls @ 250 mls/hr IV .Q4H3M ONE Stop: 03/16/20 17:27 Last Infusion: 03/16/20 18:16 Dose: 0 mls/hr Documented by: [id number] Admin: 03/16/20 14:05 Dose: 250 mls/hr Documented by: [id number] Calcium Gluconate 1,000 mg/ (Sodium Chloride) 60 mls @ 240 mls/hr IV NOW STA Stop: 03/16/20 21:48 Last Infusion: 03/16/20 22:08 Dose: 0 mls/hr Documented by: [id number] Admin: 03/16/20 21:54 Dose: 240 mls/hr Documented by: [id number] Potassium Chloride/Sodium Chloride (Normal Saline W/20 Meq Kcl) 20 meq in 1,000 mls @ 60 mls/hr IV .[id number] ONE Stop: 03/17/20 16:09 Last Infusion: 03/17/20 16:55 Dose: 0 mls/hr Documented by: [id number] Admin: 03/16/20 23:59 Dose: 60 mls/hr Documented by: [id number] Lisinopril (Zestril) 20 mg PO NOW STA Stop: 03/16/20 21:16 Last Admin: 03/16/20 21:36 Dose: 20 mg Documented by: [id number] Lisinopril (Zestril) 20 mg PO NOW STA Stop: 03/16/20 21:20 Last Admin: 03/16/20 21:36 Dose: Not Given Documented by: [id number] Lorazepam (Ativan) 0.5 mg PO NOW STA Stop: 03/18/20 00:10 Last Admin: 03/18/20 01:08 Dose: Not Given Documented by: [id number] Lorazepam (Ativan) 0.5 mg PO NOW STA Stop: 03/19/20 00:31 Last Admin: 03/19/20 00:48 Dose: 0.5 mg Documented by: [id number] Ondansetron HCl (Zofran) 4 mg IV NOW STA Stop: 03/16/20 15:41 Last Admin: 03/16/20 15:49 Dose: 4 mg Documented by: [id number] Potassium Chloride (Klor-Con M20) 40 meq PO ONE ONE Stop: 03/18/20 12:31 Last Admin: 03/18/20 14:05 Dose: 40 meq Documented by: [id number] Medical Decision Making Differential Diagnosis Differential diagnosis includes etiologies such as alcohol intoxication, toxicologic, infection, hypoglycemia, electrolyte abnormalities, cardiac sources, intracerebral event, neurologic, as well as others were entertained. Medical Records Attestation: I reviewed the patient's medical records. Home Medications Current Medication List: was personally reviewed by me Laboratory Data Attestation: I reviewed the patient's lab results. Result diagrams: 03/17/20 05:50 03/18/20 09:50 Lab Results 03/16/20 03/16/20 03/16/20 Range/Units 13:47 13:47 13:47 WBC 5.46 (4.8-10.8) K/uL RBC 5.54 (4.7-6.1) M/uL Hgb 18.5 H (14.0-18.0) g/dL Hct 50.9 (42-52) % MCV 91.9 (80-100) fL MCH 33.4 (25-34) pg MCHC 36.3 H (32-36) g/dL RDW Std Deviation 42.9 (36.4-46.3) fL RDW Coeff of Eloy 12.7 (11.5-14.5) % Plt Count 205 (130-400) K/uL MPV 9.6 (7.4-10.4) fL Immature Gran % (Auto) 0.2 % Neut % (Auto) 45.1 % Lymph % (Auto) 41.9 % Wirt % (Auto) 11.7 % Eos % (Auto) 0.7 % Baso % (Auto) 0.4 % Immature Gran # (Auto) 0.01 (0.00-0.02) K/uL Neut # (Auto) 2.46 (1.4-6.5) K/uL Lymph # (Auto) 2.29 (1.2-3.4) K/uL Wirt # (Auto) 0.64 H (0.11-0.59) K/uL Eos # (Auto) 0.04 (0-0.5) K/uL Baso # (Auto) 0.02 (0-0.2) K/uL Sodium 136 (136-145) mmol/L Potassium 3.6 (3.5-5.1) mmol/L Chloride 101 (98-107) mmol/L Carbon Dioxide 23 (21-32) mmol/L Anion Gap 12.0 H (3-11) BUN 13 (7-18) mg/dl Creatinine 0.98 (0.6-1.4) mg/dl Est Cr Clr Drug Dosing Not Reportable Est GFR ( Amer) 97.4 Est GFR (Non-Af Amer) 84.1 BUN/Creatinine Ratio 12.9 (10-20) Glucose 104 H (70-99) mg/dl Calcium 8.3 L (8.5-10.1) mg/dl Magnesium 2.4 (1.8-2.4) mg/dl Total Bilirubin 0.8 (0.2-1) mg/dl AST 39 H (15-37) U/L ALT 63 (12-78) U/L Alkaline Phosphatase 65 (45-117) U/L Troponin I 0.126 H* (0-0.045) ng/ml Total Protein 7.9 (6.4-8.2) gm/dl Albumin 3.8 (3.4-5.0) gm/dl Globulin 4.1 H (2.5-4.0) gm/dl Albumin/Globulin Ratio 0.9 (0.9-2) Lipase 217 (73-393) U/L TSH 1.450 (0.300-4.500) uIu/ml Specimen Hemolysis Urine Color Urine Appearance (Clear) Urine pH (4.5-7.5) Ur Specific Seward (1.000-1.030) Urine Protein (Negative) Urine Glucose (UA) (Negative) Urine Ketones (Negative) Urine Blood (Negative) Urine Nitrite (Negative) Urine Bilirubin (Negative) Urine Urobilinogen (Negative) Ur Leukocyte Esterase (Negative) Salicylates 2.8 (2.8-20) mg/dl Urine Opiates Screen (Neg) Ur Methadone, Qual (Neg) Acetaminophen < 2 L (10-30) ug/ml Urine Barbiturates (Neg) Ur Phencyclidine (PCP) (Neg) U Amphetamin/Meth Scrn (Neg) MDMA (Ecstasy) Screen (Neg) U Benzodiazepines Scrn (Neg) Ur Cocaine Metabolite (Neg) U Marijuana (THC) Screen (Neg) Ethyl Alcohol mg/dL (0-3) mg/dl 03/16/20 03/16/20 03/16/20 Range/Units 13:47 14:00 14:00 WBC (4.8-10.8) K/uL RBC (4.7-6.1) M/uL Hgb (14.0-18.0) g/dL Hct (42-52) % MCV (80-100) fL MCH (25-34) pg MCHC (32-36) g/dL RDW Std Deviation (36.4-46.3) fL RDW Coeff of Eloy (11.5-14.5) % Plt Count (130-400) K/uL MPV (7.4-10.4) fL Immature Gran % (Auto) % Neut % (Auto) % Lymph % (Auto) % Wirt % (Auto) % Eos % (Auto) % Baso % (Auto) % Immature Gran # (Auto) (0.00-0.02) K/uL Neut # (Auto) (1.4-6.5) K/uL Lymph # (Auto) (1.2-3.4) K/uL Wirt # (Auto) (0.11-0.59) K/uL Eos # (Auto) (0-0.5) K/uL Baso # (Auto) (0-0.2) K/uL Sodium (136-145) mmol/L Potassium (3.5-5.1) mmol/L Chloride (98-107) mmol/L Carbon Dioxide (21-32) mmol/L Anion Gap (3-11) BUN (7-18) mg/dl Creatinine (0.6-1.4) mg/dl Est Cr Clr Drug Dosing Est GFR ( Amer) Est GFR (Non-Af Amer) BUN/Creatinine Ratio (10-20) Glucose (70-99) mg/dl Calcium (8.5-10.1) mg/dl Magnesium (1.8-2.4) mg/dl Total Bilirubin (0.2-1) mg/dl AST (15-37) U/L ALT (12-78) U/L Alkaline Phosphatase (45-117) U/L Troponin I (0-0.045) ng/ml Total Protein (6.4-8.2) gm/dl Albumin (3.4-5.0) gm/dl Globulin (2.5-4.0) gm/dl Albumin/Globulin Ratio (0.9-2) Lipase (73-393) U/L TSH (0.300-4.500) uIu/ml Specimen Hemolysis Urine Color Yellow Urine Appearance Clear (Clear) Urine pH 6.0 (4.5-7.5) Ur Specific [place] 1.010 (1.000-1.030) Urine Protein Negative (Negative) Urine Glucose (UA) Negative (Negative) Urine Ketones Negative (Negative) Urine Blood Negative (Negative) Urine Nitrite Negative (Negative) Urine Bilirubin Negative (Negative) Urine Urobilinogen Negative (Negative) Ur Leukocyte Esterase Negative (Negative) Salicylates (2.8-20) mg/dl Urine Opiates Screen Neg (Neg) Ur Methadone, Qual Neg (Neg) Acetaminophen (10-30) ug/ml Urine Barbiturates Neg (Neg) Ur Phencyclidine (PCP) Neg (Neg) U Amphetamin/Meth Scrn Neg (Neg) MDMA (Ecstasy) Screen Neg (Neg) U Benzodiazepines Scrn Neg (Neg) Ur Cocaine Metabolite Neg (Neg) U Marijuana (THC) Screen Neg (Neg) Ethyl Alcohol mg/dL 211.0 H (0-3) mg/dl Imaging Data Radiologist's Impression: XR abdomen 2V w PA chest CLINICAL HISTORY: n/v, abd pain dyspnea COMPARISON STUDY: 09/24/2019 FINDINGS: The soft tissues, psoas shadows, renal outlines and intestinal gas pattern appear normal. There is no evidence for bowel obstruction. There is no evidence for free intraperitoneal air. No abnormal abdominal calcifications are seen. A frontal view of the chest was performed and is unremarkable. IMPRESSION: Normal study. ACT 112: Negative or not required by law. The above report was generated using voice recognition software. It may contain grammatical, syntax or spelling errors. Electronically signed by: Kenny Cabrera M.D. 03/16/2020 2:45 PM Blood Pressure Blood Pressure Findings: Elevated blood pressure Blood Pressure Disposition: Referred to patients primary care provider JAVIER Narrative Pt here with hx of alcohol abuse. Pt unable to be placed psychiatrically due to risk of alcohol withdrawal. DUe to risk and complicated pmhx, pt discussed with hospitalist for close monitoring for possible etoh withdrawal. VS stable in the ER. Pt was given several doses of valium here. No evidence of DT's. Pt with a history of elevated troponin previously evaluated by cardiology 6 months ago. An order was placed for continuous cardiac monitoring. The monitor shows a rate of 90_ with _noraml sinus_ rhythm. Impression & Plan Alcohol abuse, Elevated troponin, Hypertension, Depression, Alcohol intoxicati on Discharge Plan Visit Data *Final* Discharge Date/Time: 03/16/20 22:22 Chief Complaint: Mental Health Evaluation Stated Complaint: MENTAL HEALTH EVAL ED Provider: Carina Herrera Discharge Problem: Alcohol abuse, Elevated troponin, Hypertension, Depression, Alcohol intoxication Patient Disposition: Admitted As Inpatient Discharge Instructions Interventions: ED Discharge Assessment Last Done: 03/16/20 22:22 Discharge Problem: Hypertension Qualifiers: Hypertension type: unspecified Qualified Code(s): I10 - Essential (primary) hypertension Depression Qualifiers: Depression Type: unspecified Qualified Code(s): F32.9 - Major depressive disorder, single episode, unspecified Alcohol intoxication Qualifiers: Complication of substance-induced condition: uncomplicated Qualified Code(s): F10.920 - Alcohol use, unspecified with intoxication, uncomplicated
[2020-03-16 14:01] LABS: Basophils # (auto) 0.02 K/uL (0-0.2); Basophils % (auto) 0.4 %; Eosinophils # (auto) 0.04 K/uL (0-0.5); Eosinophils % (auto) 0.7 %; Hematocrit (blood only) 50.9 % (42-52); Hemoglobin 18.5 g/dL (14.0-18.0); Immature Granulocytes # (auto) 0.01 K/uL (0.00-0.02); Immature Granulocytes % (auto) 0.2 %; Lymphocytes # (auto) 2.29 K/uL (1.2-3.4); Lymphocytes % (auto) 41.9 %; Mean Corpuscular Hemoglobin 33.4 pg (25-34); Mean Corpuscular Hgb Conc 36.3 g/dL (32-36); Mean Corpuscular Volume 91.9 fL (80-100); Mean Platelet Volume 9.6 fL (7.4-10.4); Monocytes # (auto) 0.64 K/uL (0.11-0.59); Monocytes % (auto) 11.7 %; Neutrophils # (auto) 2.46 K/uL (1.4-6.5); Neutrophils % (auto) 45.1 %; Platelet Count 205 K/uL (130-400); RDW Coefficient of Variation 12.7 % (11.5-14.5); RDW Standard Deviation 42.9 fL (36.4-46.3); Red Blood Count 5.54 M/uL (4.7-6.1); White Blood Count 5.46 K/uL (4.8-10.8)
[2020-03-16 14:12] LABS: Appearance Urine Clear (Clear); Bilirubin Urine Negative (Negative); Blood Urine Negative (Negative); Color Urine Yellow; Glucose Urine UA Negative (Negative); Ketones Urine Negative (Negative); Leukocyte Esterase Urine Negative (Negative); Nitrite Urine Negative (Negative); Protein Urine Negative (Negative); Urobilinogen Urine Negative (Negative)
[2020-03-16 14:25] LABS: Alanine Aminotransferase 63 U/L (12-78); Albumin Level 3.8 gm/dl (3.4-5.0); Aspartate Aminotransferase 39 U/L (15-37); BUN Creatinine Ratio 12.9 (10-20); Blood Urea Nitrogen 13 mg/dl (7-18); Calcium 8.3 mg/dl (8.5-10.1); Carbon Dioxide 23 mmol/L (21-32); Chloride 101 mmol/L (98-107); Est GFR (African American) 97.4; Est GFR (Non-African American) 84.1; Glucose 104 mg/dl (70-99); Lipase 217 U/L (73-393); Magnesium 2.4 mg/dl (1.8-2.4); Potassium 3.6 mmol/L (3.5-5.1); Sodium 136 mmol/L (136-145)
[2020-03-16 14:37] LABS: Albumin Globulin Ratio 0.9 (0.9-2); Alkaline Phosphatase 65 U/L (45-117); Bilirubin,Total 0.8 mg/dl (0.2-1); Globulin 4.1 gm/dl (2.5-4.0); Total Protein 7.9 gm/dl (6.4-8.2); Troponin I 0.126 ng/ml (0-0.045)
[2020-03-16 14:43] LABS: Amphetamines+Metham, Urine Neg (Neg); Barbiturates, Urine Neg (Neg); Benzodiazepine, Urine Neg (Neg); Cocaine, Urine Neg (Neg); MDMA (Ecstacy), Urine Neg (Neg); Methadone, Urine Neg (Neg); Opiate, Urine Neg (Neg); Phencyclidine, Urine Neg (Neg)
[2020-03-16 14:44] LABS: Acetaminophen < 2 ug/ml (10-30); Salicylate 2.8 mg/dl (2.8-20)
--- NOTE | 2020-03-16 14:46 | XRay Report ---
XR abdomen 2V w PA chest CLINICAL HISTORY: n/v, abd pain dyspnea COMPARISON STUDY: 09/24/2019 FINDINGS: The soft tissues, psoas shadows, renal outlines and intestinal gas pattern appear normal. T here is no evidence for bowel obstruction. There is no evidence for free intraperitoneal air. No abno rmal abdominal calcifications are seen. A frontal view of the chest was performed and is unremarkable . IMPRESSION: Normal study. ACT 112: Negative or not required by law. The above report was generated using voice recognition software. It may contain grammatical, syntax or spelling errors. Electronically signed by: Kenny Cabrera M.D. 03/16/2020 2:45 PM
[2020-03-16] MEDS ORDERED: DIAZEPAM 5 MG/ML INJ 10ML VIAL IV STA ×4 (14:59→19:35)
[2020-03-16] MEDS ORDERED: ONDANSETRON INJ 2 MG/ML 2 ML VIAL IV STA (15:40)
[2020-03-16] MEDS ORDERED: FAMOTIDINE 20MG/5ML IV PUSH IV STA (15:40)
[2020-03-16] MEDS ORDERED: lisinopriL 20 MG TAB PO STA ×2 (21:15→21:19)
[2020-03-16] MEDS ORDERED: GABAPENTIN 600 MG TAB PO STA (21:19)
[2020-03-16] MEDS ORDERED: CALCIUM GLUCONATE 10% 1,000 MG in SODIUM CHLORIDE 0.9% 50 ML IV STA (21:34)
[2020-03-16] MEDS ORDERED: CALCIUM GLUCONATE 10% 10 ML VIAL IV ONE (21:47)
--- NOTE | 2020-03-16 21:53 | History & Physical Report ---
Date of Service March 16, 2020 Assessment & Plan (1) Alcohol withdrawal: Hypertensive urgency secondary to above Troponin elevation secondary to above mood disorder, suboptimal Patient currently not suicidal. Ongoing tobacco abuse Med telemetry DT precautions Facilitate home BP meds, may need dose titration follow troponin Psych consult RE depression Nicotine patch as needed Social service RE discharge planning DVT prophylaxis. Lovenox subcu Full code History of Present Illness Chief Complaint: Alcohol abuse, depression Primary Care Provider: NO PCP History obtained from patient and records. Medical history significant for hypertension, mood disorder, GERD, ongoing tobacco/alcohol abuse. Last confinement January 2024 alcohol withdrawal and suicidality. Patient discharged to rehab. Patient went back to drinking shortly after discharge from rehab. Patient mood not the best, unable to take mood feels the last few days because he ran out. Denies suicidality. Patient came to ER today with intention to quit. Denies chest pain, S OB Mild achy, abdominal pain with nausea emesis. No constipation/diarrhea symptoms. Not feeling well. Medical History as above Surgical History : None Family History : Alcoholism, heart disease Personal/social history: One 4 pack daily, alcohol abuse, currently unemployed Allergies Allergy/AdvReac Type Severity Reaction Status Date / Time No Known Allergies Allergy Verified 03/16/20 14:25 Home Medications Home Medications Medication Instructions Recorded Confirmed Type clonidine HCl 0.1 mg PO Q4H 03/16/20 03/16/20 History lisinopril 20 mg PO HS 03/16/20 03/16/20 History omeprazole 20 mg PO DAILY 03/16/20 03/16/20 History sertraline 100 mg PO DAILY 03/16/20 03/16/20 History Past Med/Surg History Medical History Alcohol dependence (Acute) Depression GERD (gastroesophageal reflux disease) Smoker Suicidal thoughts Surgical History No history of previous surgery Family History Father , age 70 from [place] Coronary heart disease Social History Preferred Language: Nepali Communication Ability: Effective 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 Beliefs That Will Affect Care: None marital status: Current Living Situation: Other Current Living Situation Comment: pt states lives in large farmhouse where two brothers unrelated to him live Other Information That Helps Us Care for You: No Feels Safe at Home: Yes Safety Concerns: Feels Safe At This Time Smoking Status: Current every day smoker Tobacco Type: cigarettes ; Do You Dip or Chew Tobacco: Yes ; Second Hand Exposure: Yes ; Tobacco Cessation Education Requested by Patient: No Hx Alcohol Use: Yes Alcohol type: beer Hx Substance Use: No Review of Systems Review of Systems: As per HPI, all 10 systems reviewed, all other ROS negative Physical Exam Physical Exam: GENERAL: uncomfortable, tremulous, no respiratory distress SKIN: Normal color, warm HEENT: Padron[place] palpebral conjunctivae, no ptosis, dry buccal mucosa NECK : Supple, no tenderness CHEST : CTA, no tenderness HEART : RRR, no obvious murmurs ABDOMEN: Some distention, nontender EXTREMITIES : No LE swelling/tenderness, no other conspicuous deformities noted NEUROLOGIC : Coherent, no facial asymmetry, tremulous, no other gross focality Results & Data Results & Data ([facility]) Vital Signs (Past 12 Hours) Vital Signs Temp Pulse Resp BP Pulse Ox 03/16/20 19:27 93 H 16 170/95 H 94 03/16/20 19:00 85 19 96 03/16/20 18:31 102 H 19 155/102 H 94 03/16/20 18:30 105 H 16 93 03/16/20 18:01 93 H 20 121/99 95 03/16/20 18:00 92 H 21 94 03/16/20 17:30 90 20 156/83 H 95 03/16/20 17:00 96 H 17 130/68 97 03/16/20 16:30 88 15 119/62 96 03/16/20 16:04 86 14 94 03/16/20 16:02 89 L 03/16/20 16:00 86 14 133/66 89 L 03/16/20 15:57 36.8 C 88 21 131/71 89 L 03/16/20 15:30 92 H 25 H 134/79 95 03/16/20 15:11 85 19 93 03/16/20 15:10 89 22 147/68 H 92 03/16/20 15:09 88 94 03/16/20 14:46 85 21 95 03/16/20 14:45 79 31 H 183/92 H 95 03/16/20 14:44 82 13 94 03/16/20 14:00 81 15 92 03/16/20 13:47 87 18 147/81 H 93 03/16/20 13:32 83 31 H 95 03/16/20 13:25 81 28 H 172/100 H 96 03/16/20 12:58 36.8 C 92 H 18 153/108 H 94 Laboratory Results Laboratory Results WBC 5.46 K/uL (4.8-10.8) 03/16/20 13:47 RBC 5.54 M/uL (4.7-6.1) 03/16/20 13:47 Hgb 18.5 g/dL (14.0-18.0) H 03/16/20 13:47 Hct 50.9 % (42-52) 03/16/20 13:47 MCV 91.9 fL (80-100) 03/16/20 13:47 MCH 33.4 pg (25-34) 03/16/20 13:47 MCHC 36.3 g/dL (32-36) H 03/16/20 13:47 RDW Std Deviation 42.9 fL (36.4-46.3) 03/16/20 13:47 RDW Coeff of Eloy 12.7 % (11.5-14.5) 03/16/20 13:47 Plt Count 205 K/uL (130-400) 03/16/20 13:47 MPV 9.6 fL (7.4-10.4) 03/16/20 13:47 Immature Gran % (Auto) 0.2 % 03/16/20 13:47 Neut % (Auto) 45.1 % 03/16/20 13:47 Lymph % (Auto) 41.9 % 03/16/20 13:47 [place] % (Auto) 11.7 % 03/16/20 13:47 Eos % (Auto) 0.7 % 03/16/20 13:47 Baso % (Auto) 0.4 % 03/16/20 13:47 Immature Gran # (Auto) 0.01 K/uL (0.00-0.02) 03/16/20 13:47 Neut # (Auto) 2.46 K/uL (1.4-6.5) 03/16/20 13:47 Lymph # (Auto) 2.29 K/uL (1.2-3.4) 03/16/20 13:47 [place] # (Auto) 0.64 K/uL (0.11-0.59) H 03/16/20 13:47 Eos # (Auto) 0.04 K/uL (0-0.5) 03/16/20 13:47 Baso # (Auto) 0.02 K/uL (0-0.2) 03/16/20 13:47 Sodium 136 mmol/L (136-145) 03/16/20 13:47 Potassium 3.6 mmol/L (3.5-5.1) 03/16/20 13:47 Chloride 101 mmol/L (98-107) 03/16/20 13:47 Carbon Dioxide 23 mmol/L (21-32) 03/16/20 13:47 Anion Gap 12.0 (3-11) H 03/16/20 13:47 BUN 13 mg/dl (7-18) 03/16/20 13:47 Creatinine 0.98 mg/dl (0.6-1.4) 03/16/20 13:47 Est Cr Clr Drug Dosing Not Reportable 03/16/20 13:47 Est GFR ( Amer) 97.4 03/16/20 13:47 Est GFR (Non-Af Amer) 84.1 03/16/20 13:47 BUN/Creatinine Ratio 12.9 (10-20) 03/16/20 13:47 Glucose 104 mg/dl (70-99) H 03/16/20 13:47 Calcium 8.3 mg/dl (8.5-10.1) L 03/16/20 13:47 Magnesium 2.4 mg/dl (1.8-2.4) 03/16/20 13:47 Total Bilirubin 0.8 mg/dl (0.2-1) 03/16/20 13:47 AST 39 U/L (15-37) H 03/16/20 13:47 ALT 63 U/L (12-78) 03/16/20 13:47 Alkaline Phosphatase 65 U/L (45-117) 03/16/20 13:47 Troponin I 0.126 ng/ml (0-0.045) H* 03/16/20 13:47 Total Protein 7.9 gm/dl (6.4-8.2) 03/16/20 13:47 Albumin 3.8 gm/dl (3.4-5.0) 03/16/20 13:47 Globulin 4.1 gm/dl (2.5-4.0) H 03/16/20 13:47 Albumin/Globulin Ratio 0.9 (0.9-2) 03/16/20 13:47 Lipase 217 U/L (73-393) 03/16/20 13:47 TSH 1.450 uIu/ml (0.300-4.500) 03/16/20 13:47 Specimen Hemolysis 03/16/20 13:47 Urine Color Yellow 03/16/20 14:00 Urine Appearance Clear (Clear) 03/16/20 14:00 Urine pH 6.0 (4.5-7.5) 03/16/20 14:00 Ur Specific [place] 1.010 (1.000-1.030) 03/16/20 14:00 Urine Protein Negative (Negative) 03/16/20 14:00 Urine Glucose (UA) Negative (Negative) 03/16/20 14:00 Urine Ketones Negative (Negative) 03/16/20 14:00 Urine Blood Negative (Negative) 03/16/20 14:00 Urine Nitrite Negative (Negative) 03/16/20 14:00 Urine Bilirubin Negative (Negative) 03/16/20 14:00 Urine Urobilinogen Negative (Negative) 03/16/20 14:00 Ur Leukocyte Esterase Negative (Negative) 03/16/20 14:00 Salicylates 2.8 mg/dl (2.8-20) 03/16/20 13:47 Urine Opiates Screen Neg (Neg) 03/16/20 14:00 Ur Methadone, Qual Neg (Neg) 03/16/20 14:00 Acetaminophen < 2 ug/ml (10-30) L 03/16/20 13:47 Urine Barbiturates Neg (Neg) 03/16/20 14:00 Ur Phencyclidine (PCP) Neg (Neg) 03/16/20 14:00 U Amphetamin/Meth Scrn Neg (Neg) 03/16/20 14:00 MDMA (Ecstasy) Screen Neg (Neg) 03/16/20 14:00 U Benzodiazepines Scrn Neg (Neg) 03/16/20 14:00 Ur Cocaine Metabolite Neg (Neg) 03/16/20 14:00 U Marijuana (THC) Screen Neg (Neg) 03/16/20 14:00 Ethyl Alcohol mg/dL 211.0 mg/dl (0-3) H 03/16/20 13:47 Diagnostic Findings Chest abdomen x-ray: Normal EKG as per my interpretation rate 70, NSR, normal axis, no ischemia
[2020-03-16] MEDS ORDERED: LORazepam 3 MG/6 ML VIAL IV PRN (22:55)
[2020-03-16] MEDS ORDERED: LORazepam 1 MG/2 ML VIAL IV PRN (22:55)
[2020-03-16] MEDS ORDERED: ATIVAN IV ALCOHOL WITHDRAWL IV PRN (22:55)
[2020-03-16] MEDS ORDERED: OXYCODONE HCL IR 5 MG TAB (IMMEDIATE RELEASE) PO PRN (22:55)
[2020-03-16] MEDS ORDERED: LORazepam 2 MG/4 ML VIAL IV PRN (22:55)
[2020-03-16] MEDS ORDERED: GABAPENTIN 1200MG ALCOHOL WITHDRAWAL LOAD PO STA (22:55)
[2020-03-16] MEDS ORDERED: PROMETHAZINE HCL 12.5 MG in SODIUM CHLORIDE 0.9% 50 ML IV PRN (22:55)
[2020-03-16] MEDS ORDERED: NSS + 20MEQ KCL 20 MEQ/1,000 ML BAG IV ONE (23:30)
[2020-03-16] MEDS: cloNIDine HCL 0.1 MG TAB PO SCH (23:58)
[2020-03-16] MEDS: THIAMINE HCL 100 MG TAB PO SCH (23:59)
[2020-03-16] MEDS: FOLIC ACID 1 MG TAB PO SCH (23:59)
[2020-03-17] MEDS: GABAPENTIN 600 MG TAB PO SCH ×3 (04:36→17:06)
--- NOTE | 2020-03-17 05:53 | Electrocardiogram Report ---
Test Reason : Blood Pressure : / mmHG Vent. Rate : 072 BPM Atrial Rate : 072 BPM P-R Int : 176 ms QRS Dur : 092 ms QT Int : 376 ms P-R-T Axes : 061 052 046 degrees QTc Int : 411 ms Normal sinus rhythm Normal ECG When compared with ECG of 26-SEP-2019 06:42, No significant change was found Confirmed by Ashok Kelsey ([id number]) on 03/17/2020 5:53:41 AM Referred By: REFERRED SELF Confirmed By:Ashok Kelsey
[2020-03-17 06:27] LABS: Basophils # (auto) 0.01 K/uL (0-0.2); Basophils % (auto) 0.2 %; Eosinophils # (auto) 0.07 K/uL (0-0.5); Eosinophils % (auto) 1.6 %; Hematocrit (blood only) 44.6 % (42-52); Hemoglobin 15.5 g/dL (14.0-18.0); Immature Granulocytes # (auto) 0.01 K/uL (0.00-0.02); Immature Granulocytes % (auto) 0.2 %; Lymphocytes # (auto) 1.47 K/uL (1.2-3.4); Lymphocytes % (auto) 34.2 %; Mean Corpuscular Hemoglobin 32.6 pg (25-34); Mean Corpuscular Hgb Conc 34.8 g/dL (32-36); Mean Corpuscular Volume 93.9 fL (80-100); Mean Platelet Volume 9.6 fL (7.4-10.4); Monocytes # (auto) 0.47 K/uL (0.11-0.59); Monocytes % (auto) 10.9 %; Neutrophils # (auto) 2.27 K/uL (1.4-6.5); Neutrophils % (auto) 52.9 %; Platelet Count 141 K/uL (130-400); RDW Coefficient of Variation 12.7 % (11.5-14.5); RDW Standard Deviation 43.6 fL (36.4-46.3); Red Blood Count 4.75 M/uL (4.7-6.1)
[2020-03-17 06:34] LABS: Partial Thromboplastin Time 28.8 Seconds (21.0-31.0)
[2020-03-17 06:52] LABS: BUN Creatinine Ratio 11.7 (10-20); Calcium 7.8 mg/dl (8.5-10.1); Creatinine Clr Calc Pharmacy 96.8 ml/min; Est GFR (African American) 105.1; Est GFR (Non-African American) 90.7; Potassium 3.5 mmol/L (3.5-5.1)
[2020-03-17 07:07] LABS: Troponin I 0.166 ng/ml (0-0.045)
--- NOTE | 2020-03-17 07:50 | Psychiatric Consultation ---
Date of Consultation March 17, 2020 Impression / Recommendations Impression 59 yo male with alcohol induced depressive disorder who presents with relapse/alcohol withdrawal following rehab. States he is compliant with Zoloft but no SSRI likely to help when can't maintain sobriety. He generally declines programming as step down from rehab. I strongly encouraged him to reconsider naltrexone to decrease cravings and use, my understanding is that Dr. Mayer has a consulting arrangement with [facility] and may be able to guid management. Ideally it would be started prior to discharge from the hospital but he is not agreeing at this time. He is currently denying SI and his passive statements are generally while intoxicated so would not truly meet involuntary commitment criteria under mental health law despite his poor self care due to alcohol use disorder. Risk Factors Assessment Do You Have Access To A Gun?: No Protective Factors Assessment Employed: No (Patient collects a pension) Psych History Identifying Data 59 yo male well known to service due to repeated hospitalizations for ETOH withdrawal. Consult is by Anastasia Sanchez for ongoing depression. Chief Complaint "I'm not suicidal, it's just the same thing again, Zoloft does OK, I know it would do better if didn't drink". History of Present Illness He denies SI, states that he's undecided re: use of Revia. Says he makes statements while intoxicated about wishing he would get sick and , sober denies. Previous barrier was cost as would have to pay out of pocket for therapy for PCP to prescribe. PCP has since retired and he is going to [facility]. Mood dips lower when he drinks and he realizes that ETOH is a depressant. Recent trigger for binge was that daughter's birthday was 6/7 and they are estranged. Notes rehab doesn't help so ambivalent about returning. Energy, appetite, and sleep are disrupted by ETOH use as 2 weeks ago "all were good". Told liaison nurse he feels rather numb. Currently has some restless legs and tremor. Past Psychiatric History Current Psychiatric Diagnosis: MDD and substance abuse disorder Outpatient Services: Andre at [facility] and has showcase maker Shawn @ [facility]. Previous Psych Admissions: [facility] 2017, [facility] 09/27, [facility] 11/29 Do You Have Access To A Gun?: No History of Previous Suicide Attempt: No Describe Attempts in the Past: Denies Allergies Allergy/AdvReac Type Severity Reaction Status Date / Time No Known Allergies Allergy Verified 03/16/20 14:25 Home Medications Home Medications Medication Instructions Recorded Confirmed Type clonidine HCl 0.1 mg PO Q4H 03/16/20 03/16/20 History lisinopril 20 mg PO HS 03/16/20 03/16/20 History omeprazole 20 mg PO DAILY 03/16/20 03/16/20 History sertraline 100 mg PO DAILY 03/16/20 03/16/20 History Family History denied Substance Abuse History last use 03/16, 1 case per beer/day following rehab, unclear how many days sober [facility] Personal History Living Arrangements: Home Highest Grade Completed: High School Graduate Employment Status: Unemployed Marital Status: (2) Number Of Children: 3 but all estranged Beliefs That Will Affect Care: None History of Legal Problems: yes, no outstanding Patient History Medical History Alcohol dependence (Acute) Depression GERD (gastroesophageal reflux disease) Smoker Suicidal thoughts Surgical History No history of previous surgery Family History Father , age 70 from [place] Coronary heart disease Social History Preferred Language: Lao Communication Ability: Effective Supervisor Type Disk Quality Control Required: No Beliefs That Will Affect Care: None marital status: Current Living Situation: Other Current Living Situation Comment: pt states lives in large farmhouse where two brothers unrelated to him live Other Information That Helps Us Care for You: No Feels Safe at Home: Yes Safety Concerns: Feels Safe At This Time Smoking Status: Current every day smoker Tobacco Type: cigarettes ; Do You Dip or Chew Tobacco: Yes ; Second Hand Exposure: Yes ; Tobacco Cessation Education Requested by Patient: No Hx Alcohol Use: Yes Alcohol type: beer Hx Substance Use: No Physical Exam Psychiatric: Orientation: alert Apperance: appropriately groomed Eye Contact: + fair eye contact speech is non-spontaneous Affect: + depressed affect Mood: + depressed mood Thought Process: + concrete thought process Thought Content: reality based without delusions Suicidal Thoughts: denies suicidal thoughts Homicidal Thoughts: denies homicidal thoughts Hallucinations: no auditory hallucinations and no visual hallucinations Insight: + poor insight Judgement: + poor judgement Vital Signs (Past 24 Hours): Last Vital Signs Temp 36.8 C 03/17/20 07:25 Pulse 72 03/17/20 07:29 Resp 18 03/17/20 07:25 BP 121/72 03/17/20 07:25 Pulse Ox 97 03/17/20 07:25 Review of Systems All systems reviewed & are unremarkable except as noted in HPI & below Results & Data (PSY) Medications Administered Clonidine HCl (Catapres) 0.1 mg PO BID [facility] Stop: 04/15/20 22:54 Last Admin: 03/16/20 23:58 Dose: 0.1 mg Documented by: [id number] Folic [facility] ([facility]vite) [facility] [place]: 04/15/20 22:54 Last Admin: 03/16/20 23:59 Dose: 1 mg Documented by: [id number] Gabapentin (Neurontin) 600 mg PO Q6H [facility] Stop: 03/17/20 09:59 Last Admin: 03/17/20 04:36 Dose: 600 mg Documented by: [id number] Lorazepam (Ativan) 1 mg in 2 mls @ 2 mls/min IV UD PRN; Protocol PRN Reason: EtOH Withdrawl AWSS Score 6,7 Stop: 04/15/20 22:54 Last Admin: 03/17/20 00:00 Dose: 1 mls/min Documented by: [id number] Potassium Chloride/Sodium Chloride (Normal Saline W/20 Meq Kcl) 20 meq in 1,000 mls @ 60 mls/hr IV .[id number] ONE Stop: 03/17/20 16:09 Last Admin: 03/16/20 23:59 Dose: 60 mls/hr Documented by: [id number] Thiamine HCl (Vitamin B-1) 100 mg PO QAM [facility] Stop: 04/15/20 22:54 Last Admin: 03/16/20 23:59 Dose: 100 mg Documented by: [id number] Coding Level of Care Code 30391 [facility] Intl Hosp Care Lvl 2
[2020-03-17] MEDS: FOLIC ACID 1 MG TAB PO SCH (09:06)
[2020-03-17] MEDS: THIAMINE HCL 100 MG TAB PO SCH (09:06)
[2020-03-17] MEDS: cloNIDine HCL 0.1 MG TAB PO SCH ×2 (09:06→20:58)
[2020-03-17] MEDS: PANTOprazole 40 MG TAB PO SCH (09:06)
[2020-03-17] MEDS: MULTIVITAMIN TAB PO SCH (09:06)
[2020-03-17] MEDS: ENOXAPARIN INJ 40 MG/0.4 ML SYR SQ SCH (09:07)
--- NOTE | 2020-03-17 19:12 | Hospitalist Progress Note ---
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 DVT Px: Lovenox SQ Code Status Full code Admission and Anticipated Discharge Date Admission Date: March 16, 2020 Subjective Patient is seen and examined at bedside States having diarrhea but denies any blood in stool Also denies any chest pain, SOB, dizziness, nausea, vomiting, abdominal pain Denies any withdrawal symptoms currently Offers no other complaints Review of Systems Review of Systems: All systems reviewed & are unremarkable except as noted in HPI & below Physical Exam Physical Exam: ' Physical Exam: Vitals signs as noted above General Appearance:Moderately built and nourished, no apparent distress Head: normocephalic, Atraumatic Eyes: normal inspection, EOMI Neck: supple, Trachea midline Respiratory/Chest: Normal breath sounds, CTA, No accessory muscle use Cardiovascular: S1, S2, No murmur Abdomen/GI:Soft, Non tender, Bowel sounds present Extremities/Musculoskelatal:normal inspection, no edema Neurologic/Psych:alert, awake, grossly no focal neurological deficits Skin: normal color, warm Results & Data Results & Data ([facility]) Vital Signs (Past 12 Hours) Vital Signs Temp Pulse Pulse Resp BP Pulse Ox 03/17/20 17:43 81 03/17/20 15:27 36.6 C 74 19 171/92 H 95 03/17/20 11:25 36.7 C 86 18 96/63 L 95 03/17/20 07:29 72 03/17/20 07:25 36.8 C 78 18 121/72 97 Laboratory Results Short CBC 03/17/20 Range/Units 05:50 WBC 4.30 L (4.8-10.8) K/uL Hgb 15.5 D (14.0-18.0) g/dL Hct 44.6 (42-52) % Plt Count 141 (130-400) K/uL BMP 03/17/20 05:50 Sodium 139 Potassium 3.5 Chloride 106 Carbon Dioxide 25 BUN 11 Creatinine 0.92 Glucose 99 Calcium 7.8 L Cardiac Enzymes 03/17/20 03/17/20 Range/Units 00:06 05:50 Troponin I 0.145 H* 0.166 H* (0-0.045) ng/ml
[2020-03-17] MEDS: lisinopriL 20 MG TAB PO SCH (20:58)
[2020-03-18] MEDS ORDERED: LORazepam 0.5 MG TAB PO STA (00:09)
[2020-03-18] MEDS: GABAPENTIN 600 MG TAB PO SCH ×3 (00:25→21:07)
[2020-03-18 07:54] LABS: BUN Creatinine Ratio 12.4 (10-20); Calcium 7.9 mg/dl (8.5-10.1); Creatinine Clr Calc Pharmacy 93.3 ml/min
[2020-03-18] MEDS: SERTRALINE HCL 100 MG TABLET PO SCH (08:33)
[2020-03-18] MEDS: THIAMINE HCL 100 MG TAB PO SCH (08:33)
[2020-03-18] MEDS: FOLIC ACID 1 MG TAB PO SCH (08:33)
[2020-03-18] MEDS: PANTOprazole 40 MG TAB PO SCH (08:33)
[2020-03-18] MEDS: cloNIDine HCL 0.1 MG TAB PO SCH ×2 (08:34→21:08)
[2020-03-18] MEDS: MULTIVITAMIN TAB PO SCH (08:35)
[2020-03-18] MEDS: ENOXAPARIN INJ 40 MG/0.4 ML SYR SQ SCH (08:35)
[2020-03-18] MEDS ORDERED: POTASSIUM CHLORIDE 20 MEQ TABCR PO ONE (12:30)
[2020-03-18] MEDS: LOPERAMIDE HCL 2 MG CAP PO PRN (14:04)
--- NOTE | 2020-03-18 17:41 | Hospitalist Progress Note ---
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 DVT Px: Lovenox SQ Code Status Full code Admission and Anticipated Discharge Date Admission Date: March 16, 2020 Subjective Patient is seen and examined at bedside Still has diarrhea Denies nausea, vomiting, abd pain, Chest pain, SOB, dizziness Denies any withdrawal symptoms Offers no other complaints Review of Systems Review of Systems: All systems reviewed & are unremarkable except as noted in HPI & below Physical Exam Physical Exam: ' Physical Exam: Vitals signs as noted above General Appearance:Moderately built and nourished, no apparent distress Head: normocephalic, Atraumatic Eyes: normal inspection, EOMI Neck: supple, Trachea midline Respiratory/Chest: Normal breath sounds, CTA, No accessory muscle use Cardiovascular: S1, S2, No murmur Abdomen/GI:Soft, Non tender, Bowel sounds present Extremities/Musculoskelatal:normal inspection, no edema Neurologic/Psych:alert, awake, grossly no focal neurological deficits Skin: normal color, warm Results & Data Results & Data ([facility]) Vital Signs (Past 12 Hours) Vital Signs Temp Pulse Pulse Pulse Resp BP Pulse Ox 03/18/20 15:22 36.8 C 69 20 137/82 96 03/18/20 15:08 69 03/18/20 11:23 36.8 C 92 H 20 108/75 96 03/18/20 07:43 72 03/18/20 07:11 36.8 C 69 18 150/91 H 93 03/18/20 07:01 36.7 C 96 H 20 131/75 98 Laboratory Results [facility] 03/18/20 03/18/20 03/18/20 06:12 08:12 09:50 Sodium 136 Potassium Cancelled 3.2 L Chloride 102 Carbon Dioxide 25 BUN 11 Creatinine 0.88 Glucose 103 H Calcium 7.9 L
[2020-03-18] MEDS: lisinopriL 20 MG TAB PO SCH (21:07)
[2020-03-19] MEDS ORDERED: LORazepam 0.5 MG TAB PO STA (00:30)
[2020-03-19 06:33] LABS: Hematocrit (blood only) 44.4 % (42-52); Mean Corpuscular Hemoglobin 32.8 pg (25-34); Platelet Count 133 K/uL (130-400); RDW Coefficient of Variation 12.7 % (11.5-14.5); RDW Standard Deviation 42.3 fL (36.4-46.3); Red Blood Count 4.88 M/uL (4.7-6.1); White Blood Count 4.67 K/uL (4.8-10.8)
[2020-03-19 07:11] LABS: BUN Creatinine Ratio 11.1 (10-20); Calcium 8.4 mg/dl (8.5-10.1); Creatinine Clr Calc Pharmacy 97.8 ml/min; Est GFR (African American) 111.1; Est GFR (Non-African American) 95.8
[2020-03-19 08:15] LABS: Magnesium 2.1 mg/dl (1.8-2.4); Potassium 3.5 mmol/L (3.5-5.1)
[2020-03-19] MEDS: cloNIDine HCL 0.1 MG TAB PO SCH (08:50)
[2020-03-19] MEDS: FOLIC ACID 1 MG TAB PO SCH (08:50)
[2020-03-19] MEDS: PANTOprazole 40 MG TAB PO SCH (08:51)
[2020-03-19] MEDS: THIAMINE HCL 100 MG TAB PO SCH (08:51)
[2020-03-19] MEDS: MULTIVITAMIN TAB PO SCH (08:51)
[2020-03-19] MEDS: ENOXAPARIN INJ 40 MG/0.4 ML SYR SQ SCH (08:51)
[2020-03-19] MEDS: SERTRALINE HCL 100 MG TABLET PO SCH (08:51)
[2020-03-19] MEDS: LOPERAMIDE HCL 2 MG CAP PO PRN (09:26)
[2020-03-19] MEDS: GABAPENTIN 600 MG TAB PO SCH (09:27)
--- NOTE | 2020-03-19 11:29 | Hospitalist Progress Note ---
Date of Service March 19, 2020 Assessment & Plan (1) Alcohol withdrawal: Alcohol abuse disorder with elevated alcohol level No withdrawal symptoms on admission but blood pressure was noted to be high Tox Screen: negative Has been on alcohol withdrawal protocol with gabapentin Continue Thiamine, folic acid Clinically a lot better Wants to continue with outpatient rehab program Will be going home this afternoon Hypertensive Urgency Secondary to above Chronic Troponin elevation Has been on clonidine 0.1 mg twice daily to control blood pressure Blood pressure remains stable for the last day or 2 Mood disorder Denies suicidal ideation Continue Beth Dey Psychiatry Input -no additional recommendations As an outpatient appointment with psychiatry/therapist 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 DVT Px: Lovenox SQ Code Status Full code Likely will discharge this afternoon Admission and Anticipated Discharge Date Admission Date: March 16, 2020 Subjective The patient was seen and examined in medical telemetry unit He was admitted to 10/16 with the acute alcohol withdrawal and hypertensive urgency He denies any symptoms as of today, has been ambulating along the hallways without any difficulty and wants to go home Review of Systems Review of Systems: All systems reviewed and are unremarkable except as noted below Neurologic: no numbness and no confusion No tremors on outstretched hands Physical Exam Physical Exam: Lying in bed without any acute symptoms Constitutional: well developed and well nourished; no acute distress and not ill appearing Eyes: PERRL, conjunctivae normal, anicteric sclerae ENMT: external ear and nose normal, oropharynx normal Neck: trachea midline, no thyromegaly Respiratory: normal respiratory effort Auscultation: lungs clear to auscultation bilaterally Cardiovascular: Rate/Rhythm: regular rate and regular rhythm Heart Sounds: no murmur Gastrointestinal (Abdomen): Inspection/Auscultation: abdomen normal to inspection and normal bowel sounds; abdomen not distended Percussion/Palpation: abdomen soft; abdomen nontender Musculoskeletal: No acute arthritis involving any joints Neurologic: moves all extremities; no focal motor deficits Motor/Sensory: no tremor Psychiatric: A+Ox3, euthymic affect Lymphatic: no cervical or axillary lymphadenopathy Results & Data Results & Data ([facility]) Vital Signs (Past 12 Hours) Vital Signs Temp Pulse Pulse Resp BP Pulse Ox 03/19/20 09:00 64 03/19/20 07:46 36.6 C 65 20 134/77 95 03/19/20 04:00 36.9 C 65 18 138/76 94 03/19/20 00:00 36.6 C 65 18 125/81 96 Laboratory Results Short CBC 03/19/20 Range/Units 06:15 WBC 4.67 L (4.8-10.8) K/uL Hgb 16.0 (14.0-18.0) g/dL Hct 44.4 (42-52) % Plt Count 133 (130-400) K/uL BMP 03/19/20 03/19/20 06:15 07:49 Sodium 138 Potassium 3.5 Chloride 106 Carbon Dioxide 25 BUN 9 Creatinine 0.84 Glucose 107 H Calcium 8.4 L Medications Administered Current Inpatient Medications Clonidine HCl (Catapres) 0.1 mg PO BID [facility] Stop: 04/15/20 22:54 Last Admin: 03/19/20 08:50 Dose: 0.1 mg Documented by: Enoxaparin Sodium (Lovenox) 40 mg SQ QAM [facility] Stop: 04/16/20 08:59 Last Admin: 03/19/20 08:51 Dose: 40 mg Documented by: Folic Acid (Folvite) 1 mg PO QAM [facility] Stop: 04/15/20 22:54 Last Admin: 03/19/20 08:50 Dose: 1 mg Documented by: Gabapentin (Neurontin) 600 mg PO Q24H [facility] Stop: 03/20/20 09:59 Lorazepam (Ativan) 1 mg in 2 mls @ 2 mls/min IV UD PRN; Protocol PRN Reason: EtOH Withdrawl AWSS Score 6,7 Stop: 04/15/20 22:54 Last Admin: 03/17/20 00:00 Dose: 1 mls/min Documented by: Lorazepam (Ativan) 2 mg in 4 mls @ 4 mls/min IV UD PRN; Protocol PRN Reason: EtOH Withdrawl AWSS Score 8,9 Stop: 04/15/20 22:54 Last Admin: 03/17/20 20:56 Dose: 4 mls/min Documented by: Lorazepam (Ativan) 3 mg in 6 mls @ 4 mls/min IV ONCE PRN; Protocol PRN Reason: EtOH Withdrawl AWSS Score >=10 Stop: 04/15/20 22:54 Promethazine HCl 12.5 mg/ (Sodium Chloride) 50.5 mls @ 202 mls/hr IV Q6H PRN PRN Reason: Nausea And Vomiting Stop: 04/15/20 22:54 Lisinopril (Zestril) 20 mg PO HS [facility] Stop: 04/16/20 20:59 Last Admin: 03/18/20 21:07 Dose: 20 mg Documented by: Loperamide HCl (Imodium) 2 mg PO PRN PRN PRN Reason: Diarrhea Stop: 04/17/20 13:09 Last Admin: 03/19/20 09:26 Dose: 2 mg Documented by: Multivitamins (Multivitamin Tab) 1 tab PO [facility] Stop: 04/16/20 08:59 Last Admin: 03/19/20 08:51 Dose: 1 tab Documented by: Oxycodone HCl (Roxicodone Immediate Rel) 5 mg PO Q4H PRN PRN Reason: Pain Stop: 03/30/20 22:54 Pantoprazole Sodium (Protonix) 40 mg PO DAILY [facility] Stop: 04/16/20 08:59 Last Admin: 03/19/20 08:51 Dose: 40 mg Documented by: Sertraline HCl (Zoloft) 100 mg PO DAILY [facility] Stop: 04/17/20 08:59 Last Admin: 03/19/20 08:51 Dose: 100 mg Documented by: Thiamine HCl (Vitamin B-1) [facility] Stop: 04/15/20 22:54 Last Admin: 03/19/20 08:51 Dose: 100 mg Documented by:
--- NOTE | 2020-03-20 07:45 | Discharge Summary ---
Date of Service March 20, 2020 Admission HPI Per Admitting Provider History obtained from patient and records. Medical history significant for hypertension, mood disorder, GERD, ongoing tobacco/alcohol abuse. Last confinement January 2024 alcohol withdrawal and suicidality. Patient discharged to rehab. Patient went back to drinking shortly after discharge from rehab. Patient mood not the best, unable to take mood feels the last few days because he ran out. Denies suicidality. Patient came to ER today with intention to quit. Denies chest pain, S OB Mild achy, abdominal pain with nausea emesis. No constipation/diarrhea symptoms. Not feeling well. Medical History as above Surgical History : None Family History : Alcoholism, heart disease Personal/social history: One 4 pack daily, alcohol abuse, currently unemployed Admission Exam Per Admitting Provider Physical Exam: GENERAL: uncomfortable, tremulous, no respiratory distress SKIN: Normal color, warm HEENT: Vidette palpebral conjunctivae, no ptosis, dry buccal mucosa NECK : Supple, no tenderness CHEST : CTA, no tenderness HEART : RRR, no obvious murmurs ABDOMEN: Some distention, nontender EXTREMITIES : No LE swelling/tenderness, no other conspicuous deformities noted NEUROLOGIC : Coherent, no facial asymmetry, tremulous, no other gross focality Principal Diagnosis And cold abuse with withdrawal symptoms, hypertensive urgency Discharge Exam Constitutional well developed and well nourished; no acute distress and not ill appearing Eyes PERRL, conjunctivae normal, anicteric sclerae ENMT external ear and nose normal, oropharynx normal Neck trachea midline, no thyromegaly Respiratory normal respiratory effort Auscultation: lungs clear to auscultation bilaterally Cardiovascular Rate/Rhythm: regular rate and regular rhythm Heart Sounds: no murmur Gastrointestinal (Abdomen) Inspection/Auscultation: abdomen normal to inspection and normal bowel sounds; abdomen not distended Percussion/Palpation: abdomen soft; abdomen nontender Neurologic moves all extremities; no focal motor deficits Motor/Sensory: no tremor Psychiatric A+Ox3, euthymic affect Lymphatic no cervical or axillary lymphadenopathy Discharge Data Allergies Allergy/AdvReac Type Severity Reaction Status Date / Time No Known Allergies Allergy Verified 03/16/20 14:25 Consultations 03/16/20 21:21 ED Decision to Admit Stat 03/16/20 22:55 Consult Case Management - Discharge Planning Routine Consult Psychiatry Routine 03/19/20 11:21 Consult Case Management - Discharge Planning Routine Hospital Course (1) Alcohol withdrawal: Alcohol abuse disorder with elevated alcohol level No withdrawal symptoms on admission but blood pressure was noted to be high Tox Screen: negative Has been on alcohol withdrawal protocol with gabapentin Continue Thiamine, folic acid Clinically a lot better Wants to continue with outpatient rehab program Will be going home this afternoon Hypertensive Urgency Secondary to above Chronic Troponin elevation Has been on clonidine 0.1 mg twice daily to control blood pressure Blood pressure remains stable for the last day or 2 Mood disorder Denies suicidal ideation Continue Mateust Yissel Psychiatry Input -no additional recommendations As an outpatient appointment with psychiatry/therapist Ongoing tobacco abuse Scheduling 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 DVT Px: Lovenox SQ Code Status Full code Likely will discharge this afternoon Total Time Total Time Spent Total Time Spent (In Minutes): 35 minutes Total Time Includes: Examination of the Patient, Discharge Planning, Medication Reconciliation and Communication With Other Providers Discharge Plan Discharge Items Patient Disposition: Home - Self-Care Reason For Visit: ETOH WITHDRAWAL Discharge Diagnosis: And cold abuse with withdrawal symptoms, hypertensive urgency Condition on Discharge: Good Activity: Resume your previous activity Non-emergency contact: Primary Care Provider Call non-emergency contact if: you have any medication questions and your symp toms worsen Follow-up/Referrals: PCP,NO [Primary Care Provider] - (Has an appointment with psychologist tomorrow. He was strongly advised to keep the appointment and make an appointment with his primary care physician within 7 days. He was agreeable to this.) Diet: Regular Addtl Attending Provider Instructions: Strongly advised to quit drinking Pending Studies at Discharge: No Stand-Alone Forms: [facility] [employer], Smoking Cessation, Suicide Prevention Resources Medications and DC Order Prescriptions: New multivitamin [Daily-Wes] Tablet 1 tab PO QAM 30 Days Qty: 30 RF: 0 thiamine HCl (vitamin B1) [Vitamin B-1] 100 mg Tablet 100 mg PO QAM 30 Days Qty: 30 RF: 0 folic acid 1 mg Tablet 1 mg PO QAM 30 Days Qty: 30 RF: 0 Continued lisinopril 20 mg Tablet 20 mg PO HS RF: 0 omeprazole 20 mg Tablet,Delayed Release (Dr/Ec) 20 mg PO DAILY RF: 0 sertraline 100 mg Tablet 100 mg PO DAILY RF: 0 Changed clonidine HCl 0.1 mg tablet 0.1 mg PO BID Qty: 0 RF: 0 Discharge Orders: Discharge Order (Routine); Ordered 03/19/20 Ordered By: Wyatt Edgar Admission Data Admit Date/Time: 03/16/20 21:56 Attending Provider: Wyatt Edgar Admit Provider: Chi Roland Primary Care Provider: PCP,NO Other Providers: Chi Roland ; Zulema Rodriges ; Benjamin Gonzalez Other Interventions: Discharge Summary Assessment (RN) Last Done: 03/19/20 13:53 PSY Interdisciplinary Discharge Planning Last Done: 03/18/20 12:12 DC Date/Time DO NOT enter until pt leaves facility: 03/19/20 14:04
[2020-03-20] MEDS ORDERED: GABAPENTIN 600 MG TAB PO SCH (09:58)
== END 2020-03-19 14:04 | disposition home or self-care (01) | DRG 897 ==
LOC: ED 12:56 → SUATTDRO 21:56 → 2N 21:56

== ENCOUNTER 2020-04-11 11:33 | Inpatient (IN) ==
[2020-04-11 12:19] LABS: Appearance Urine Clear (Clear); Bilirubin Urine Negative (Negative); Blood Urine Negative (Negative); Color Urine Yellow; Glucose Urine UA Negative (Negative); Ketones Urine Negative (Negative); Leukocyte Esterase Urine Negative (Negative); Nitrite Urine Negative (Negative); Protein Urine Negative (Negative); Specific Gravity Urine 1.008 (1.000-1.030); Urobilinogen Urine Negative (Negative); pH Urine 6.5 (4.5-7.5)
[2020-04-11] MEDS ORDERED: LORazepam 0.5 MG/1 ML VIAL IV STA (12:21)
[2020-04-11 12:32] LABS: Basophils # (auto) 0.02 K/uL (0-0.2); Basophils % (auto) 0.4 %; Eosinophils # (auto) 0.04 K/uL (0-0.5); Eosinophils % (auto) 0.8 %; Hematocrit (blood only) 50.9 % (42-52); Hemoglobin 18.2 g/dL (14.0-18.0); Lymphocytes # (auto) 2.49 K/uL (1.2-3.4); Lymphocytes % (auto) 49.2 %; Mean Corpuscular Hgb Conc 35.8 g/dL (32-36); Mean Corpuscular Volume 92.2 fL (80-100); Mean Platelet Volume 9.5 fL (7.4-10.4); Monocytes # (auto) 0.46 K/uL (0.11-0.59); Monocytes % (auto) 9.1 %; Neutrophils # (auto) 2.05 K/uL (1.4-6.5); Neutrophils % (auto) 40.5 %; Platelet Count 269 K/uL (130-400); RDW Coefficient of Variation 12.4 % (11.5-14.5); RDW Standard Deviation 42.2 fL (36.4-46.3); Red Blood Count 5.52 M/uL (4.7-6.1); White Blood Count 5.06 K/uL (4.8-10.8)
--- NOTE | 2020-04-11 12:39 | Emergency Department Note ---
History of Present Illness General Chief complaint: Mental Health Evaluation Stated complaint: MENTAL HEALTH Time Seen by Provider: 04/11/20 12:00 History of Present Illness Provider complaint: Mental health evaluation Onset (ago): day(s) 3 Maximum Pain Intensity: 4 59-year-old male presents emergency department for mental health evaluation. Patient reports he has been having excessive feelings of depression of the last 3 days. He states he has not taken any medications for last 3 days. He states he has been binge drinking. He reports drinking beers before he got to the emergency department today. Patient was brought in by police. Per police, the patient was making suicidal comments. Patient denies any active suicidal ideati on at this time. Home Medications Home Medications Medication Instructions Recorded Confirmed Type lisinopril 20 mg PO HS 03/16/20 04/11/20 History omeprazole 20 mg PO DAILY 03/16/20 04/11/20 History sertraline 100 mg PO DAILY 03/16/20 04/11/20 History clonidine HCl 0.1 mg PO BID #0 tab 03/19/20 04/11/20 Rx folic acid 1 mg PO QAM 30 Days #30 tab 03/19/20 04/11/20 Rx multivitamin [Daily-Wes] 1 tab PO QAM 30 Days #30 tab 03/19/20 04/11/20 Rx thiamine HCl (vitamin B1) [Vitamin 100 mg PO QAM 30 Days #30 tab 03/19/20 04/11/20 Rx B-1] Allergies Allergy/AdvReac Type Severity Reaction Status Date / Time No Known Allergies Allergy Verified 03/16/20 14:25 Past Med/Surg History Medical History Alcohol dependence (Acute) Depression GERD (gastroesophageal reflux disease) Smoker Suicidal thoughts Surgical History No history of previous surgery Family History Father , age 70 from [place] Coronary heart disease Social History Preferred Language: Mohawk Communication Ability: Effective Medicare Compliance Auditor Required: No Beliefs That Will Affect Care: None marital status: Current Living Situation: Other Current Living Situation Comment: pt states lives in large farmhouse where two brothers unrelated to him live Feels Safe at Home: Yes Smoking Status: Current every day smoker Tobacco Type: cigarettes ; Second Hand Exposure: Yes ; Hx Alcohol Use: Yes Alcohol type: beer Hx Substance Use: No Review of Systems A total of 10 systems reviewed and were otherwise negative Physical Exam Vital Signs Vital Signs - 24 hr 04/11/20 11:49 04/11/20 13:31 04/11/20 15:40 Temperature 37.2 C Temperature Source Oral Pulse Rate 87 Pulse Rate [Right Finger] 78 100 H Respiratory Rate 20 20 20 Blood Pressure 181/115 H Blood Pressure [Right Arm] 151/94 H 116/81 Blood Pressure Mean 137 Blood Pressure Mean [Right Arm] 113 92 Pulse Oximetry 94 98 93 Oxygen Delivery Method Room Air Room Air Room Air Sepsis Recent Fever Within 48 Hours No Sepsis Action Taken by Nursing No Action Required Physical Exam GENERAL: He is oriented to person, place, and time. He appears disheveled and dirty HENT: Exam performed. - Head: Normocephalic and atraumatic. - Right Ear: External ear normal. No mastoid tenderness. - Left Ear: External ear normal. No mastoid tenderness. - Mouth/Throat: The oropharynx is clear and moist. No trismus in the jaw. No dental abscesses or uvula swelling. No oropharyngeal exudate or tonsillar abscesses. EYES: Conjunctivae and EOM are normal. Pupils are equal, round, and reactive to light. Right eye exhibits no discharge. Left eye exhibits no discharge. No scleral icterus. NECK: Normal range of motion. Neck supple. No JVD present. No spinous process tenderness present. No carotid bruit present. No rigidity. No tracheal deviation and normal range of motion present. No Brudzinski's sign and no Kernig's sign noted. CV: Normal rate, regular rhythm, normal heart sounds and intact distal pulses. There is no peripheral edema. Palpable radial pulses bue. PULM/CHEST: Effort normal and breath sounds normal. No respiratory distress. No stridor. He has no wheezes. He has no rales. - Chest Wall: He exhibits no tenderness. ABD: The abdomen is soft. Bowel sounds are normal. He has no distension. No mass is present. There is no tenderness. There is no rebound, no guarding, no Andersen's sign and no tenderness at McBurney's point. Rovsig negative. MUSC/SKEL: Normal range of motion. There is no peripheral edema, tenderness or deformity. LYMPH: No cervical adenopathy. NEURO: He is alert and oriented to person, place, and time. He has normal strength. No cranial nerve deficit or sensory deficit. Coordination and gait normal. GCS eye subscore is 4. GCS verbal subscore is 5. GCS motor subscore is 6. Cerebellar tests wnl. SKIN: Skin is warm and dry. He is not diaphoretic. PSYCH: Patient appears depressed. No active SI or HI per the patient. Course Course 1155: The patient was evaluated in room A5. A complete history and physical exam was performed. 1300: Labs within normal limits with exception of serum alcohol. Imaging within normal limits. Patient will be placed in observation for sobriety and psychiatric evaluation. 1623: Patient is tachycardic and states he feels like he is going to DTs. He is tremulous. Patient has been given multiple doses of Ativan in the emergency department. Patient will be admitted to the inpatient [facility] team and then have psychiatric casework evaluate him on the floor. Discussed with Annalee who states to admit to Dr. Tez Espinal service. Administered Medications Discontinued Medications Lorazepam (Ativan) 0.5 mg in 1 mls @ 1 mls/min IV NOW STA Stop: 04/11/20 12:22 Last Admin: 04/11/20 12:35 Dose: 1 mls/min Documented by: [id number] Lorazepam (Ativan) 1 mg in 2 mls @ 2 mls/min IV NOW STA Stop: 04/11/20 15:04 Last Admin: 04/11/20 15:20 Dose: 2 mls/min Documented by: [id number] Medical Decision Making Laboratory Data Result diagrams: 04/11/20 12:09 04/11/20 12:09 Lab Results 04/11/20 04/11/20 04/11/20 Range/Units 11:40 11:40 12:09 WBC 5.06 (4.8-10.8) K/uL RBC 5.52 (4.7-6.1) M/uL Hgb 18.2 H (14.0-18.0) g/dL Hct 50.9 (42-52) % MCV 92.2 (80-100) fL MCH 33.0 (25-34) pg MCHC 35.8 (32-36) g/dL RDW Std Deviation 42.2 (36.4-46.3) fL RDW Coeff of Eloy 12.4 (11.5-14.5) % Plt Count 269 (130-400) K/uL MPV 9.5 (7.4-10.4) fL Immature Gran % (Auto) 0.0 % Neut % (Auto) 40.5 % Lymph % (Auto) 49.2 % Vigo % (Auto) 9.1 % Eos % (Auto) 0.8 % Baso % (Auto) 0.4 % Neut # (Auto) 2.05 (1.4-6.5) K/uL Lymph # (Auto) 2.49 (1.2-3.4) K/uL Vigo # (Auto) 0.46 (0.11-0.59) K/uL Eos # (Auto) 0.04 (0-0.5) K/uL Baso # (Auto) 0.02 (0-0.2) K/uL Immature Gran # (Auto) 0.00 (0.00-0.02) K/uL Sodium (136-145) mmol/L Potassium (3.5-5.1) mmol/L Chloride (98-107) mmol/L Carbon Dioxide (21-32) mmol/L Anion Gap (3-11) BUN (7-18) mg/dl Creatinine (0.6-1.4) mg/dl Est Cr Clr Drug Dosing ml/min Est GFR ( Amer) Est GFR (Non-Af Amer) BUN/Creatinine Ratio (10-20) Glucose (70-99) mg/dl POC Glucose (70-99) mg/dl Calcium (8.5-10.1) mg/dl Total Bilirubin (0.2-1) mg/dl AST (15-37) U/L ALT (12-78) U/L Alkaline Phosphatase (45-117) U/L Total Protein (6.4-8.2) gm/dl Albumin (3.4-5.0) gm/dl Globulin (2.5-4.0) gm/dl Albumin/Globulin Ratio (0.9-2) TSH (0.300-4.500) uIu/ml Urine Color Yellow Urine Appearance Clear (Clear) Urine pH 6.5 (4.5-7.5) Ur Specific Preston 1.008 (1.000-1.030) Urine Protein Negative (Negative) Urine Glucose (UA) Negative (Negative) Urine Ketones Negative (Negative) Urine Blood Negative (Negative) Urine Nitrite Negative (Negative) Urine Bilirubin Negative (Negative) Urine Urobilinogen Negative (Negative) Ur Leukocyte Esterase Negative (Negative) Salicylates (2.8-20) mg/dl Urine Opiates Screen Neg (Neg) Ur Methadone, Qual Neg (Neg) Acetaminophen (10-30) ug/ml Urine Barbiturates Neg (Neg) Ur Phencyclidine (PCP) Neg (Neg) U Amphetamin/Meth Scrn Neg (Neg) MDMA (Ecstasy) Screen Neg (Neg) U Benzodiazepines Scrn Neg (Neg) Ur Cocaine Metabolite Neg (Neg) U Marijuana (THC) Screen Neg (Neg) Ethyl Alcohol mg/dL (0-3) mg/dl 04/11/20 04/11/20 04/11/20 Range/Units 12:09 12:09 12:09 WBC (4.8-10.8) K/uL RBC (4.7-6.1) M/uL Hgb (14.0-18.0) g/dL Hct (42-52) % MCV (80-100) fL MCH (25-34) pg MCHC (32-36) g/dL RDW Std Deviation (36.4-46.3) fL RDW Coeff of Eloy (11.5-14.5) % Plt Count (130-400) K/uL MPV (7.4-10.4) fL Immature Gran % (Auto) % Neut % (Auto) % Lymph % (Auto) % Vigo % (Auto) % Eos % (Auto) % Baso % (Auto) % Neut # (Auto) (1.4-6.5) K/uL Lymph # (Auto) (1.2-3.4) K/uL Vigo # (Auto) (0.11-0.59) K/uL Eos # (Auto) (0-0.5) K/uL Baso # (Auto) (0-0.2) K/uL Immature Gran # (Auto) (0.00-0.02) K/uL Sodium 136 (136-145) mmol/L Potassium 3.7 (3.5-5.1) mmol/L Chloride 103 (98-107) mmol/L Carbon Dioxide 25 (21-32) mmol/L Anion Gap 9.0 (3-11) BUN 8 (7-18) mg/dl Creatinine 1.05 (0.6-1.4) mg/dl Est Cr Clr Drug Dosing 78.2 ml/min Est GFR ( Amer) 89.6 Est GFR (Non-Af Amer) 77.3 BUN/Creatinine Ratio 7.3 L (10-20) Glucose 97 (70-99) mg/dl POC Glucose (70-99) mg/dl Calcium 9.0 (8.5-10.1) mg/dl Total Bilirubin 0.7 (0.2-1) mg/dl AST 34 (15-37) U/L ALT 54 (12-78) U/L Alkaline Phosphatase 71 (45-117) U/L Total Protein 8.4 H (6.4-8.2) gm/dl Albumin 4.1 (3.4-5.0) gm/dl Globulin 4.3 H (2.5-4.0) gm/dl Albumin/Globulin Ratio 1.0 (0.9-2) TSH 1.180 (0.300-4.500) uIu/ml Urine Color Urine Appearance (Clear) Urine pH (4.5-7.5) Ur Specific Preston (1.000-1.030) Urine Protein (Negative) Urine Glucose (UA) (Negative) Urine Ketones (Negative) Urine Blood (Negative) Urine Nitrite (Negative) Urine Bilirubin (Negative) Urine Urobilinogen (Negative) Ur Leukocyte Esterase (Negative) Salicylates 3.7 (2.8-20) mg/dl Urine Opiates Screen (Neg) Ur Methadone, Qual (Neg) Acetaminophen < 2 L (10-30) ug/ml Urine Barbiturates (Neg) Ur Phencyclidine (PCP) (Neg) U Amphetamin/Meth Scrn (Neg) MDMA (Ecstasy) Screen (Neg) U Benzodiazepines Scrn (Neg) Ur Cocaine Metabolite (Neg) U Marijuana (THC) Screen (Neg) Ethyl Alcohol mg/dL 224.5 H (0-3) mg/dl 04/11/20 Range/Units 12:12 WBC (4.8-10.8) K/uL RBC (4.7-6.1) M/uL Hgb (14.0-18.0) g/dL Hct (42-52) % MCV (80-100) fL MCH (25-34) pg MCHC (32-36) g/dL RDW Std Deviation (36.4-46.3) fL RDW Coeff of Eloy (11.5-14.5) % Plt Count (130-400) K/uL MPV (7.4-10.4) fL Immature Gran % (Auto) % Neut % (Auto) % Lymph % (Auto) % Vigo % (Auto) % Eos % (Auto) % Baso % (Auto) % Neut # (Auto) (1.4-6.5) K/uL Lymph # (Auto) (1.2-3.4) K/uL Vigo # (Auto) (0.11-0.59) K/uL Eos # (Auto) (0-0.5) K/uL Baso # (Auto) (0-0.2) K/uL Immature Gran # (Auto) (0.00-0.02) K/uL Sodium (136-145) mmol/L Potassium (3.5-5.1) mmol/L Chloride (98-107) mmol/L Carbon Dioxide (21-32) mmol/L Anion Gap (3-11) BUN (7-18) mg/dl Creatinine (0.6-1.4) mg/dl Est Cr Clr Drug Dosing ml/min Est GFR ( Amer) Est GFR (Non-Af Amer) BUN/Creatinine Ratio (10-20) Glucose (70-99) mg/dl POC Glucose 119 H (70-99) mg/dl Calcium (8.5-10.1) mg/dl Total Bilirubin (0.2-1) mg/dl AST (15-37) U/L ALT (12-78) U/L Alkaline Phosphatase (45-117) U/L Total Protein (6.4-8.2) gm/dl Albumin (3.4-5.0) gm/dl Globulin (2.5-4.0) gm/dl Albumin/Globulin Ratio (0.9-2) TSH (0.300-4.500) uIu/ml Urine Color Urine Appearance (Clear) Urine pH (4.5-7.5) Ur Specific Preston (1.000-1.030) Urine Protein (Negative) Urine Glucose (UA) (Negative) Urine Ketones (Negative) Urine Blood (Negative) Urine Nitrite (Negative) Urine Bilirubin (Negative) Urine Urobilinogen (Negative) Ur Leukocyte Esterase (Negative) Salicylates (2.8-20) mg/dl Urine Opiates Screen (Neg) Ur Methadone, Qual (Neg) Acetaminophen (10-30) ug/ml Urine Barbiturates (Neg) Ur Phencyclidine (PCP) (Neg) U Amphetamin/Meth Scrn (Neg) MDMA (Ecstasy) Screen (Neg) U Benzodiazepines Scrn (Neg) Ur Cocaine Metabolite (Neg) U Marijuana (THC) Screen (Neg) Ethyl Alcohol mg/dL (0-3) mg/dl Imaging Data Radiologist's Impression: HEAD CT NONCONTRAST CT DOSE: HISTORY: Alcohol intoxication. Altered mental status. TECHNIQUE: Multiaxial CT images of the head were performed without the use of intravenous contrast. Automated exposure control was utilized for this study. A dose lowering technique was utilized adhering to the principles of ALARA. Comparison: None. Findings: Mild motion artifact. The paranasal sinuses and mastoid air cells are clear. The calvarium and skull base are intact. The ventricles and sulci are within normal limits. There is no mass, hematoma, midline shift, or acute infarct. Impression: Mild motion artifact. No definite acute intracranial abnormality. ACT 112: Negative or not required by law. Electronically signed by: Felipe Hilario M.D. 04/11/2020 12:46 PM Dictated: 04/11/20 1239 Transcribed: 04/11/[address] DOSE: 936.24 mGy.cm HISTORY: Alcohol intoxication. Altered mental status. Possible trauma. TECHNIQUE: Multiaxial CT images of the cervical spine were performed and reformatted in the sagittal and coronal plane without the use of contrast. A dose lowering technique was utilized adhering to the principles of ALARA. COMPARISON: None. FINDINGS: No fractures. No subluxation. Prevertebral soft tissues and the C1-C2 interval are intact. No pneumothorax. 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 IMPRESSION: No fractures within the cervical spine. ACT 112: Negative or not required by law. Electronically signed by: Felipe Hilario M.D. 04/11/2020 12:56 PM Dictated: 04/11/20 1246 Transcribed: 04/11/20 1246 [facility] Narrative Observation note Indication: Psych eval/placement Patient, with history of alcohol abuse, alcohol withdrawal, anxiety, suicidal ideation was first seen at 1155 hrs and the observation time began at 1300 hrs and was necessary in order to have psych evaluation completed . Upon re- evaluation, 2 hours and 23 minutes of observation revealed that the patient should be admitted for inpatient treatment for DTs/alcohol withdrawal and have psychiatric consult on the floor. Disposition date and time April 11, 2020 1423. Impression & Plan Alcohol withdrawal Discharge Plan Visit Data Chief Complaint: Mental Health Evaluation Stated Complaint: MENTAL HEALTH ED Provider: Loc Ren Discharge Problem: Alcohol withdrawal Patient Disposition: Being Evaluated by Hospitalist Forms Stand Alone Forms: [facility], Suicide Prevention Resources Prescriptions Prescriptions: No Action lisinopril 20 mg Tablet 20 mg PO HS RF: 0 omeprazole 20 mg Tablet,Delayed Release (Dr/Ec) 20 mg PO DAILY RF: 0 sertraline 100 mg Tablet 100 mg PO DAILY RF: 0 multivitamin [Daily-Wes] Tablet 1 tab PO QAM 30 Days Qty: 30 RF: 0 thiamine HCl (vitamin B1) [Vitamin B-1] 100 mg Tablet 100 mg PO QAM 30 Days Qty: 30 RF: 0 folic acid 1 mg Tablet 1 mg PO QAM 30 Days Qty: 30 RF: 0 clonidine HCl 0.1 mg tablet 0.1 mg PO BID Qty: 0 RF: 0 Referrals Referrals: PCP,NO [Primary Care Provider] - Discharge Problem: Alcohol withdrawal Qualifiers: Complication of substance-induced condition: with unspecified complication Qualified Code(s): F10.239 - Alcohol dependence with withdrawal, unspecified
[2020-04-11 12:44] LABS: Amphetamines+Metham, Urine Neg (Neg); Barbiturates, Urine Neg (Neg); Benzodiazepine, Urine Neg (Neg); Cocaine, Urine Neg (Neg); MDMA (Ecstacy), Urine Neg (Neg); Methadone, Urine Neg (Neg); Opiate, Urine Neg (Neg); Phencyclidine, Urine Neg (Neg)
--- NOTE | 2020-04-11 12:47 | CT Scan Report ---
HEAD CT NONCONTRAST CT DOSE: HISTORY: Alcohol intoxication. Altered mental status. TECHNIQUE: Multiaxial CT images of the head were performed without the use of intravenous contrast. A utomated exposure control was utilized for this study. A dose lowering technique was utilized adheri ng to the principles of ALARA. Comparison: None. Findings: Mild motion artifact. The paranasal sinuses and mastoid air cells are clear. The calvarium and skull base are intact. The ventricles and sulci are within normal limits. There is no mass, hemat annette, midline shift, or acute infarct. Impression: Mild motion artifact. No definite acute intracranial abnormality. ACT 112: Negative or not required by law. Electronically signed by: Felipe Hilario M.D. 04/11/2020 12:46 PM
[2020-04-11 12:50] LABS: Albumin Level 4.1 gm/dl (3.4-5.0); BUN Creatinine Ratio 7.3 (10-20); Creatinine Clr Calc Pharmacy 78.2 ml/min; Est GFR (African American) 89.6; Est GFR (Non-African American) 77.3; Potassium 3.7 mmol/L (3.5-5.1)
[2020-04-11 12:53] LABS: Acetaminophen < 2 ug/ml (10-30); Salicylate 3.7 mg/dl (2.8-20)
--- NOTE | 2020-04-11 12:58 | CT Scan Report ---
CERVICAL SPINE CT CT DOSE: 936.24 mGy.cm HISTORY: Alcohol intoxication. Altered mental status. Possible trauma. TECHNIQUE: Multiaxial CT images of the cervical spine were performed and reformatted in the sagittal and coronal plane without the use of contrast. A dose lowering technique was utilized adhering to th e principles of ALARA. COMPARISON: None. FINDINGS: No fractures. No subluxation. Prevertebral soft tissues and the C1-C2 interval are intact. No pneumothorax. Mild right and moderate left facet osteoarthritis within the upper to mid cervical s pine. IMPRESSION: No fractures within the cervical spine. ACT 112: Negative or not required by law. Electronically signed by: Felipe Hilario M.D. 04/11/2020 12:56 PM
[2020-04-11 13:00] LABS: Bilirubin,Total 0.7 mg/dl (0.2-1); Globulin 4.3 gm/dl (2.5-4.0); Thyroid Stimulating Hormone 1.18 uIu/ml (0.300-4.500); Total Protein 8.4 gm/dl (6.4-8.2)
[2020-04-11] MEDS ORDERED: LORazepam 1 MG/2 ML VIAL IV STA ×2 (15:03→16:08)
--- NOTE | 2020-04-11 16:54 | History & Physical Report ---
Date of Service April 11, 2020 Assessment & Plan (1) Alcohol withdrawal: ALCOHOLISM ALCOHOL WITHDRAWAL Pt is 59 y/o M with PMH depression, prior suicidal ideations, alcohol abuse, tobacco use presented to ER with police for alcohol intoxication and reported suicidal comments to police In ER afebrile, P: 87-102, R: 20, BP: 181/115 down to 116/81, 94% on RA ETOH: 224 -In ER pt becoming anxious and was given total Ativan 2.5mg -Obtain magnesium and phosphorus levels -Banana bag -Alcohol withdrawal protocol with Librium, Ativan -Multivitamin, folic acid, thiamine daily -Would recommend ETOH cessation discussion when pt no longer intoxicated -CBC, BMP, magnesium and phosphorus labs in am (2) Depression: H/O Depression and Suicidal Ideations Reported by police was making suicidal comments In ER to ER physician as well as admitted physician pt denies suicidal ideations or homicidal ideations at this time -suicidal precautions -Not currently taking any depression medication -Psych consult (3) Hypertension: Initially hypertensive in ER and improved during ER course H/O BP elevation during prior ETOH withdrawal hospitalizations -Continue lisinopril, clonidine (4) Tobacco use: -Pt denies nicotine patch at this time (5) GERD (gastroesophageal reflux disease): -Continue PPI DVT Prophylaxis -SCDs Full Code as per discussion with pt Pt reports has been following with [facility] for routine care Pt was seen and care coordinated with Dr Espinal. See addendum History of Present Illness Chief Complaint: Alcohol use Primary Care Provider: NO PCP Pt is 59 y/o M with PMH depression, prior suicidal ideations, alcohol abuse, tobacco use presented to ER for alcohol intoxication and suicidal ideation. Pt expressed to ER physician feelings of depression past couple of days and not taking medications for several days. It is reported pt was brought to ER by police and made suicidal comments to police. In ER denies suicidal ideations. Pt admits to binge drinking. Pt with h/o multiple admissions for ETOH withdrawal and suicidal comments while intoxicated. Reports been to rehab in past and then resumes drinking upon returning home. Pt states this afternoon with some dizziness with standing. Denies fever/chills, diaphoresis, N/V/D/C, CARPENTER, syncope, vision changes, neck pain, CP, SOB, orthopnea, palpitations, cough, sore throat, choking, otalgia, rhinorrhea, abdominal pain, paresthesias, extremity weakness, extremity edema, rashes, urinary symptoms. Currently pt reports feeling anxious. In ER received several doses of Ativan. Allergies Allergy/AdvReac Type Severity Reaction Status Date / Time No Known Allergies Allergy Verified 03/16/20 14:25 Home Medications Home Medications Medication Instructions Recorded Confirmed Type lisinopril 20 mg PO HS 03/16/20 04/11/20 History omeprazole 20 mg PO DAILY 03/16/20 04/11/20 History sertraline 100 mg PO DAILY 03/16/20 04/11/20 History clonidine HCl 0.1 mg PO BID #0 tab 03/19/20 04/11/20 Rx folic acid 1 mg PO QAM 30 Days #30 tab 03/19/20 04/11/20 Rx multivitamin [Daily-Wes] 1 tab PO QAM 30 Days #30 tab 03/19/20 04/11/20 Rx thiamine HCl (vitamin B1) [Vitamin 100 mg PO QAM 30 Days #30 tab 03/19/20 04/11/20 Rx B-1] Past Med/Surg History Medical History Alcohol dependence (Acute) Depression GERD (gastroesophageal reflux disease) Smoker Suicidal thoughts Surgical History No history of previous surgery Family History Father , age 70 from [place] Coronary heart disease Social History Preferred Language: [place] Communication Ability: Effective Bin Packer Required: No Beliefs That Will Affect Care: None marital status: Current Living Situation: Other Current Living Situation Comment: pt states lives in large farmhouse where two brothers unrelated to him live Feels Safe at Home: Yes Smoking Status: Current every day smoker Tobacco Type: cigarettes ; Second Hand Exposure: Yes ; Hx Alcohol Use: Yes Alcohol type: beer Hx Substance Use: No Review of Systems Review of Systems: All systems reviewed & are unremarkable except as noted in HPI & below Physical Exam Physical Exam: General: + anxious appearing, WDWN Head: normocephalic, atraumatic Eyes: conjunctiva non-injected, anicteric ENT: normal inspection external ears, nose, mucous membranes moist Neck: supple, trachea midline Lungs: clear, no respiratory distress, no wheezing/rhonchi/rales CV: tachycardia at 102, regular rhythm, no murmur, no pretibial edema Abd: normal BS, soft, non-tender Ext: no cyanosis or erythema noted, actively moving extremities Neuro: A&O x 3, no focal deficits noted, anxious affect Skin: warm, dry Results & Data Results & Data ([facility]) Vital Signs (Past 12 Hours) Vital Signs Temp Pulse Pulse Resp BP BP Pulse Ox 04/11/20 15:40 100 H 20 116/81 93 04/11/20 13:31 78 20 151/94 H 98 04/11/20 11:49 37.2 C 87 20 181/115 H 94 Laboratory Results Short CBC 04/11/20 Range/Units 12:09 WBC 5.06 (4.8-10.8) K/uL Hgb 18.2 H (14.0-18.0) g/dL Hct 50.9 (42-52) % Plt Count 269 (130-400) K/uL BMP 04/11/20 12:09 Sodium 136 Potassium 3.7 Chloride 103 Carbon Dioxide 25 BUN 8 Creatinine 1.05 Glucose 97 Calcium 9.0 Liver Function 04/11/20 Range/Units 12:09 Total Bilirubin 0.7 (0.2-1) mg/dl AST 34 (15-37) U/L ALT 54 (12-78) U/L Alkaline Phosphatase 71 (45-117) U/L Albumin 4.1 (3.4-5.0) gm/dl Urine 04/11/20 Range/Units 11:40 Urine Color Yellow Urine Appearance Clear (Clear) Urine pH 6.5 (4.5-7.5) Ur Specific [place] 1.008 (1.000-1.030) Urine Protein Negative (Negative) Urine Glucose (UA) Negative (Negative) Diagnostic Findings CT HEAD Impression: Mild motion artifact. No definite acute intracranial abnormality. CT C-SPINE: IMPRESSION: No fractures within the cervical spine. Code Status & VTE Plan VTE Prophylaxis Plan VTE Prophylaxis will be ordered: Yes Supervising Physician Co-Signing Physician Notes I, Dr. Tez Espinal, have seen and examined the patient Shadi Davalos with physician offset press assistant and would like to comment that on Physical Exam General: no focal tremors of extremities alone, but patient has a lot of restless movements of the body Chest/Cardiac: regular rate with systolic blood pressure around 148 Lung: clear to auscultation, no wheezing Abdomen: soft, nontender, positive bowel sounds Neuro/Extremities: able to move all extremities, sits up on own power ASSESSMENT AND PLAN ALCOHOLISM ALCOHOL WITHDRAWAL HYPERTENSION DEPRESSION -This is a patient who has presented to hospital ED or admitted in the pas fro alcoholism. Today he presents to the ED on 04/11/2020 and multiple rounds of Ativan for alcoholism and potential alcohol withdrawal. Patient reports that he was been drinking non-stop for months. -will place on alcohol withdrawal protocol with telemetry monitoring, start Librium 50 mg every 6 hours as a scheduled medication to prevent alcohol withdrawal under protocol -continue banana bag, give daily folic acid and thiamine supplements, check serum magnesium and serum phosphorous levels to supplement as needed -psychiatry consult to help evaluate to treat underlying causes of alcoholism and drinking behaviors. At time of my exam with physician offset press assistant, patient denies suicidal ideations or ideations of causing self harm to others. -PT/OT, dysphagia screen, speech and swallow service, residential case manager -FULL CODE as per my discussion with the patient, he denies any emergency contacts -agree with other assessment and plans as per physician offset press assistant -My colleague Dr. Myers will be taking over the care of the patient as hospitalist starting on 04/12/2020 (1) Alcohol withdrawal Complication of substance-induced condition: with unspecified complication Qualified Code(s): F10.239 - Alcohol dependence with withdrawal, unspecified (2) Depression Depression Type: unspecified Qualified Code(s): F32.9 - Major depressive disorder, single episode, unspecified (3) Hypertension Hypertension type: unspecified Qualified Code(s): I10 - Essential (primary) hypertension
[2020-04-11 17:23] LABS: Magnesium 2.5 mg/dl (1.8-2.4); Phosphorus 3.5 mg/dl (2.5-4.9)
[2020-04-11] MEDS ORDERED: LORazepam 3 MG/6 ML VIAL IV PRN (18:08)
[2020-04-11] MEDS ORDERED: ATIVAN IV ALCOHOL WITHDRAWL IV PRN (18:08)
[2020-04-11] MEDS ORDERED: LORazepam 2 MG/4 ML VIAL IV PRN (18:08)
[2020-04-11] MEDS ORDERED: ACETAMINOPHEN 325 MG TAB PO PRN (18:08)
[2020-04-11] MEDS ORDERED: chlordiazePOXIDE ALCOHOL WITHDRAWL 50MG PO STA (18:08)
[2020-04-11] MEDS: LORazepam 1 MG/2 ML VIAL IV PRN (18:24)
[2020-04-11] MEDS ORDERED: MULTI-VITAMIN INFUSION 10 ML, THIAMINE HCL 100 MG, FOLIC ACID 1 MG in SODIUM CHLORIDE 0... IV ONE (18:30)
[2020-04-11] MEDS: lisinopriL 20 MG TAB PO SCH (19:57)
[2020-04-11] MEDS: cloNIDine HCL 0.1 MG TAB PO SCH (19:57)
[2020-04-11] MEDS: chlordiazePOXIDE HCl 25 MG CAP PO SCH (23:41)
[2020-04-12] MEDS: LORazepam 1 MG/2 ML VIAL IV PRN (02:40)
[2020-04-12 05:59] LABS: Hematocrit (blood only) 44.3 % (42-52); Hemoglobin 15.6 g/dL (14.0-18.0); Mean Corpuscular Hgb Conc 35.2 g/dL (32-36); Mean Corpuscular Volume 93.7 fL (80-100); Mean Platelet Volume 9.5 fL (7.4-10.4); Platelet Count 181 K/uL (130-400); RDW Coefficient of Variation 12.4 % (11.5-14.5); RDW Standard Deviation 42.7 fL (36.4-46.3); Red Blood Count 4.73 M/uL (4.7-6.1); White Blood Count 4.34 K/uL (4.8-10.8)
[2020-04-12] MEDS: chlordiazePOXIDE HCl 25 MG CAP PO SCH ×3 (06:14→16:42)
[2020-04-12 06:34] LABS: BUN Creatinine Ratio 9.8 (10-20); Creatinine Clr Calc Pharmacy 89.3 ml/min; Est GFR (African American) 105.1; Est GFR (Non-African American) 90.7; Magnesium 2.2 mg/dl (1.8-2.4); Potassium 3.5 mmol/L (3.5-5.1)
[2020-04-12 06:37] LABS: Phosphorus 2.8 mg/dl (2.5-4.9)
[2020-04-12] MEDS: cloNIDine HCL 0.1 MG TAB PO SCH ×2 (09:54→20:08)
[2020-04-12] MEDS: FOLIC ACID 1 MG TAB PO SCH (09:54)
[2020-04-12] MEDS: PANTOprazole 40 MG TAB PO SCH (09:54)
[2020-04-12] MEDS: MULTIVITAMIN TAB PO SCH (09:54)
[2020-04-12] MEDS: THIAMINE HCL 100 MG TAB PO SCH (09:54)
[2020-04-12] MEDS: LORazepam 0.5 MG/1 ML VIAL IV PRN ×4 (10:01→23:25)
--- NOTE | 2020-04-12 12:58 | Psychiatric Consultation ---
Date of Consultation April 12, 2020 Impression / Recommendations Impression 59 yo male with depressed mood related to ETOH use disorder no indication for inpatient psychiatric hospitalization, no indication for involuntary commitment he agrees to continue his current level of outpatient D&A counseling and care with [facility] by the end of the conversation, it seems that he has finally agreed to a trial of naltrexone, will defer timing of start to hospitalist, generally after detox with benzos can restart zoloft at previous dose when sodium stable and no significant GI issues Psych History Identifying Data 59 yo male with multiple admissions for ETOH dependence/withdrawal, hx of passive SI while intoxicated. Chief Complaint "Yeah I just have some bad days". History of Present Illness Last contact with service on 03/17/2020. States that had been doing a lot of work outside and plans to follow with [facility]. Stopped taking his psychiatric medications for a few days and called crisis "because I just needed to talk to somebody". He denies any issues related to his medication and finds it helpful, again "if I'd let it". Previously discussed Revia and then Vivitrol with multiple providers. He remains ambivalent and we reviewed how quickly he relapses and need to break the cycle of readmission. He reports having a doctor's appt at [facility] next week (04/17?) specifically for purpose of discussion. Reviewed potential timing if clinically appropriate to start as leaves hospital. Allergies Allergy/AdvReac Type Severity Reaction Status Date / Time No Known Allergies Allergy Verified 03/16/20 14:25 Home Medications Home Medications Medication Instructions Recorded Confirmed Type lisinopril 20 mg PO HS 03/16/20 04/11/20 History omeprazole 20 mg PO DAILY 03/16/20 04/11/20 History sertraline 100 mg PO DAILY 03/16/20 04/11/20 History clonidine HCl 0.1 mg PO BID #0 tab 03/19/20 04/11/20 Rx folic acid 1 mg PO QAM 30 Days #30 tab 03/19/20 04/11/20 Rx multivitamin [Daily-Wes] 1 tab PO QAM 30 Days #30 tab 03/19/20 04/11/20 Rx thiamine HCl (vitamin B1) [Vitamin 100 mg PO QAM 30 Days #30 tab 03/19/20 04/11/20 Rx B-1] Personal History Beliefs That Will Affect Care: None Patient History Medical History Alcohol dependence (Acute) Depression GERD (gastroesophageal reflux disease) Smoker Suicidal thoughts Surgical History No history of previous surgery Family History Father , age 70 from [place] Coronary heart disease Social History Preferred Language: [place] Islander Communication Ability: Effective Assistant Pressman Required: No Beliefs That Will Affect Care: None marital status: Current Living Situation: Alone Current Living Situation Comment: pt states lives in large farmhouse where two brothers unrelated to him live Feels Safe at Home: Yes Safety Concerns: Feels Safe At This Time Smoking Status: Current every day smoker Tobacco Type: cigarettes ; Do You Dip or Chew Tobacco: Yes ; Second Hand Exposure: Yes ; Tobacco Cessation Education Requested by Patient: No Hx Alcohol Use: Yes Alcohol type: beer Hx Substance Use: No Physical Exam Psychiatric: Orientation: alert Apperance: appropriately groomed Eye Contact: + fair eye contact a bit restless Speech: normal rate/rhythm/volume of speech Affect: + blunted affect Mood: + anxious mood Thought Process: linear/logical thought process Thought Content: reality based without delusions Suicidal Thoughts: denies suicidal thoughts Homicidal Thoughts: denies homicidal thoughts Hallucinations: no auditory hallucinations and no visual hallucinations Vital Signs (Past 24 Hours): Last Vital Signs Temp 36.3 C L 04/12/20 11:03 Pulse 74 04/12/20 11:03 Resp 20 04/12/20 11:03 BP 133/77 04/12/20 11:03 Pulse Ox 94 04/12/20 11:03 Review of Systems All systems reviewed & are unremarkable except as noted in HPI & below Results & Data ([facility]) Medications Administered Chlordiazepoxide HCl (Librium) 50 mg PO Q6H ARABELLA; Taper Stop: 04/14/20 16:59 Last Admin: 04/12/20 11:12 Dose: 50 mg Documented by: [id number] Admin: 04/12/20 06:14 Dose: 50 mg Documented by: [id number] Admin: 04/11/20 23:41 Dose: 50 mg Documented by: [id number] Clonidine HCl (Catapres) 0.1 mg PO BID ARABELLA Stop: 05/11/20 20:59 Last Admin: 04/12/20 09:54 Dose: 0.1 mg Documented by: [id number] Admin: 04/11/20 19:57 Dose: 0.1 mg Documented by: [id number] Folic Acid (Folvite) 1 mg PO QAM ARABELLA Stop: 05/12/20 08:59 Last Admin: 04/12/20 09:54 Dose: 1 mg Documented by: [id number] Lorazepam (Ativan) 1 mg in 2 mls @ 2 mls/min IV UD PRN; Protocol PRN Reason: EtOH Withdrawl AWSS Score 6,7 Stop: 05/11/20 18:07 Last Admin: 04/12/20 02:40 Dose: 2 mls/min Documented by: [id number] Admin: 04/11/20 18:24 Dose: 2 mls/min Documented by: [id number] Lorazepam (Ativan) 2 mg in 4 mls @ 4 mls/min IV UD PRN; Protocol PRN Reason: EtOH Withdrawl AWSS Score 8,9 Stop: 05/11/20 18:07 Last Admin: 04/11/20 19:56 Dose: 4 mls/min Documented by: [id number] Lorazepam (Ativan) 0.5 mg in 1 mls @ 1 mls/min IV Q4H PRN PRN Reason: Anxiety Stop: 05/12/20 09:10 Last Admin: 04/12/20 10:01 Dose: 1 mls/min Documented by: [id number] Lisinopril (Zestril) 20 mg PO HS ARABELLA Stop: 05/11/20 20:59 Last Admin: 04/11/20 19:57 Dose: 20 mg Documented by: [id number] Multivitamins (Multivitamin Tab) 1 tab PO QAM ARABELLA Stop: 05/12/20 08:59 Last Admin: 04/12/20 09:54 Dose: 1 tab Documented by: [id number] Pantoprazole Sodium (Protonix) 40 mg PO DAILY ARABELLA Stop: 05/12/20 08:59 Last Admin: 04/12/20 09:54 Dose: 40 mg Documented by: [id number] Thiamine HCl (Vitamin B-1) 100 mg PO QAM [facility] Stop: 05/12/20 08:59 Last Admin: 04/12/20 09:54 Dose: 100 mg Documented by: [id number] Coding Level of Care Code 66958 [facility] Intl Hosp Care Lvl 1
--- NOTE | 2020-04-12 18:24 | Hospitalist Progress Note ---
Date of Service April 12, 2020 Assessment & Plan (1) Alcohol withdrawal: ALCOHOLISM ALCOHOL WITHDRAWAL Pt is 59 y/o M with PMH depression, prior suicidal ideations, alcohol abuse, tobacco use presented to ER with police for alcohol intoxication and reported suicidal comments to police no signs of overt DTs continue alcohol withdrawal protocol including Librium taper IV fluids (2) Depression: H/O Depression and Suicidal Ideations Reported by police was making suicidal comments In ER , pt denies suicidal ideations or homicidal ideations to ER and admitting team -- Psych consulted recommend to d/c 1:1 observation, suicidal precautions -- recommend alcohol rehab, Naltrexone after Libirum (3) Hypertension: - BP improved -Continue lisinopril, clonidine (4) Tobacco use: -Pt denies nicotine patch at this time (5) GERD (gastroesophageal reflux disease): -Continue PPI DVT Prophylaxis -SCDs Full Code as per discussion with pt Pt reports has been following with [facility] for routine care Disposition pending patient deciding on transitioning to Alcohol Rehab Admission and Anticipated Discharge Date Admission Date: April 11, 2020 Subjective ff up for alcohol withdrawal, depression seen resting in bed, sitting up , comfortable oriented x 3, calm, cooperative states he feels improved today has some mild anxiety, no tremors, sweats, hallucinations states his mood is fine, denies depression or suicidal ideations denies chest pain, palpitations, dizziness no abdominal pain ,nausea/vomiting, problems with urination or BM no other symptoms Review of Systems Review of Systems: All systems reviewed & are unremarkable except as noted in HPI & below Physical Exam Physical Exam: General- oriented x 3, not in distress, speaks in sentences with no effort or accessory muscle use Head- atraumatic Eyes- PERRL, EOMI, anicteric ENT- oropharynx clear Neck- supple, no JVD, no adenopathy, no thyromegaly; carotids +2/2, no bruits appreciated Lungs- clear to auscultation bilaterally, no rales/wheezes Heart- normal rate, regular rhythm; no murmur, no gallop, no rub appreciated Abdomen- normal bowel sounds, nondistended, soft, nontender, no masses or hepatosplenomegaly Extremities- no pretibial edema, no calf tenderness; peripheral pulses intact Neuro- alert, oriented x 3; CN 2-12 grossly intact; motor 5/5 bilaterally;sensation 100% on all extremities; no other gross focal neurologic deficits Skin- warm & dry Results & Data Results & Data ([facility]) Vital Signs (Past 12 Hours) Vital Signs Temp Pulse Pulse Resp BP BP Pulse Ox 04/12/20 15:38 36.4 C L 70 18 131/76 96 04/12/20 11:03 36.3 C L 74 20 133/77 94 04/12/20 10:08 66 04/12/20 07:40 36.5 C 84 20 132/81 95 Laboratory Results Laboratory Results - last 24 hr 04/12/20 04/12/20 05:45 05:45 WBC 4.34 L RBC 4.73 Hgb 15.6 Hct 44.3 MCV 93.7 MCH 33.0 MCHC 35.2 RDW Std Deviation 42.7 RDW Coeff of Eloy 12.4 Plt Count 181 MPV 9.5 Sodium 136 Potassium 3.5 Chloride 106 Carbon Dioxide 25 Anion Gap 5.0 BUN 9 Creatinine 0.92 Est Cr Clr Drug Dosing 89.3 Est GFR ( Amer) 105.1 Est GFR (Non-Af Amer) 90.7 BUN/Creatinine Ratio 9.8 L Glucose 100 H Calcium 8.0 L Phosphorus 2.8 Magnesium 2.2 (1) Alcohol withdrawal Complication of substance-induced condition: with unspecified complication Qualified Code(s): F10.239 - Alcohol dependence with withdrawal, unspecified (2) Depression Depression Type: unspecified Qualified Code(s): F32.9 - Major depressive disorder, single episode, unspecified (3) Hypertension Hypertension type: unspecified Qualified Code(s): I10 - Essential (primary) hypertension
[2020-04-12] MEDS ORDERED: POTASSIUM CHLORIDE 20 MEQ in SODIUM CHLORIDE 0.9% 1000ML 1,000 ML IV SCH (18:30)
[2020-04-12] MEDS: lisinopriL 20 MG TAB PO SCH (20:08)
[2020-04-13] MEDS: chlordiazePOXIDE HCl 25 MG CAP PO SCH ×2 (01:00→08:16)
[2020-04-13 07:28] VITALS: BP 144/86; TEMP 98.1; O2SAT 97
[2020-04-13] MEDS: cloNIDine HCL 0.1 MG TAB PO SCH (08:16)
[2020-04-13] MEDS: THIAMINE HCL 100 MG TAB PO SCH (08:16)
[2020-04-13] MEDS: PANTOprazole 40 MG TAB PO SCH (08:16)
[2020-04-13] MEDS: FOLIC ACID 1 MG TAB PO SCH (08:16)
[2020-04-13] MEDS: MULTIVITAMIN TAB PO SCH (08:16)
[2020-04-13 09:38] VITALS: PULSE 71
--- NOTE | 2020-04-13 12:55 | Hospitalist Progress Note ---
Date of Service dealye entry April 13, 2020 Assessment & Plan (1) Alcohol withdrawal: ALCOHOLISM ALCOHOL WITHDRAWAL Pt is 59 y/o M with PMH depression, prior suicidal ideations, alcohol abuse, tobacco use presented to ER with police for alcohol intoxication and reported suicidal comments to police no signs of overt DTs noted while admitted placed on alcohol withdrawal protocol including Librium taper, PRN Ativan patient decided to sign out against medical advice explained he has not yet completed the librium alcohol withdrawal protocol and it is unsafe for him to go home leaving against medical advice can result to worsening of medical condition, seizures, organ damage, paralysis or even patient states he feels fine and still strongly requested that he be discharged AMA form signed but given d/c instructions including gapabentin taper x 2 days, per discussion with psych service patient reports he has ff up with [facility] tomorrow for PCP ff up and ongoing discussion regarding alcohol rehab, he declined alcohol rehab placement after hospital admission (2) Depression: H/O Depression and Suicidal Ideations Reported by police was making suicidal comments In ER , pt denies suicidal ideations or homicidal ideations to ER and admitting team -- Psych consulted recommend to d/c 1:1 observation, and suicidal precautions -- per Psych: "no indication for inpatient psychiatric hospitalization, no indication for involuntary commitment he agrees to continue his current level of outpatient D&A counseling and care with [facility] by the end of the conversation, it seems that he has finally agreed to a trial of naltrexone, will defer timing of start to hospitalist, generally after detox with benzos can restart zoloft at previous dose when sodium stable and no significant GI issues" -- patient signed out AMA recommended to ff up closely with PCP (3) Hypertension: - BP stable overall -Continue lisinopril, clonidine (4) Tobacco use: -Pt denies nicotine patch at this time (5) GERD (gastroesophageal reflux disease): -Continue PPI DVT Prophylaxis -SCDs Disposition d/c home ff up with [facility] for PCP the next day Admission and Anticipated Discharge Date Admission Date: April 11, 2020 Subjective ff up for alcohol withdrawal seen resting in bed, sitting up, comfortable, smiling, very pleasant oriented x 3, answers all questions appropriately states he feels fine overall denies tremors, anxiety, sweating, hallucinations no chest pain, dyspnea, palpitations denies depression or suicidal ideation states he would like to go home explained he has not yet completed the librium alcohol withdrawal protocol and it is unsafe for him to go home leaving against medical advice can result to worsening of medical condition, seizures, organ damage, paralysis or even patient states he feels fine and still strongly requested that he be discharged AMA form signed but given d/c instructions including gapabentin taper x 2 days, per discussion with psych service patient reports he has ff up with [facility] tomorrow Review of Systems Review of Systems: All systems reviewed & are unremarkable except as noted in HPI & below Physical Exam Physical Exam: General- oriented x 3, not in distress, speaks in sentences with no effort or accessory muscle use Eyes- anicteric Neck- no JVD Lungs- clear breath sounds bilaterally, no rales/wheezes Heart- normal rate, regular rhythm; no murmurs Abdomen- normal bowel sounds, nondistended, soft, nontender Extremities- no pretibial edema, no calf tenderness no tremors Neuro- alert, oriented x 3; no gross focal neurologic deficits Skin- warm & dry Results & Data Results & Data ([facility]) Vital Signs (Past 12 Hours) Vital Signs Temp Pulse Pulse Resp BP Pulse Ox 04/13/20 07:27 36.7 C 74 20 144/86 H 97 04/13/20 07:00 71 04/13/20 03:01 36.5 C 71 17 107/72 95 Laboratory Results all noted and reviewed (1) Alcohol withdrawal Complication of substance-induced condition: with unspecified complication Qualified Code(s): F10.239 - Alcohol dependence with withdrawal, unspecified (2) Depression Depression Type: unspecified Qualified Code(s): F32.9 - Major depressive disorder, single episode, unspecified (3) Hypertension Hypertension type: unspecified Qualified Code(s): I10 - Essential (primary) hypertension
--- NOTE | 2020-04-14 09:00 | Discharge Summary ---
Date of Service April 14, 2020 Admission HPI Per Admitting Provider Pt is 59 y/o M with PMH depression, prior suicidal ideations, alcohol abuse, tobacco use presented to ER for alcohol intoxication and suicidal ideation. Pt expressed to ER physician feelings of depression past couple of days and not taking medications for several days. It is reported pt was brought to ER by police and made suicidal comments to police. In ER denies suicidal ideations. Pt admits to binge drinking. Pt with h/o multiple admissions for ETOH withdrawal and suicidal comments while intoxicated. Reports been to rehab in past and then resumes drinking upon returning home. Pt states this afternoon with some dizziness with standing. Denies fever/chills, diaphoresis, N/V/D/C, CARPENTER, syncope, vision changes, neck pain, CP, SOB, orthopnea, palpitations, cough, sore throat, choking, otalgia, rhinorrhea, abdominal pain, paresthesias, extremity weakness, extremity edema, rashes, urinary symptoms. Currently pt reports feeling anxious. In ER received several doses of Ativan. Admission Exam Per Admitting Provider General: + anxious appearing, WDWN Head: normocephalic, atraumatic Eyes: conjunctiva non-injected, anicteric ENT: normal inspection external ears, nose, mucous membranes moist Neck: supple, trachea midline Lungs: clear, no respiratory distress, no wheezing/rhonchi/rales CV: tachycardia at 102, regular rhythm, no murmur, no pretibial edema Abd: normal BS, soft, non-tender Ext: no cyanosis or erythema noted, actively moving extremities Neuro: A&O x 3, no focal deficits noted, anxious affect Skin: warm, dry Principal Diagnosis ALCOHOL WITHDRAWAL Discharge Exam General- oriented x 3, not in distress, speaks in sentences with no effort or accessory muscle use Eyes- anicteric Neck- no JVD Lungs- clear breath sounds bilaterally, no rales/wheezes Heart- normal rate, regular rhythm; no murmurs Abdomen- normal bowel sounds, nondistended, soft, nontender Extremities- no pretibial edema, no calf tenderness no tremors Neuro- alert, oriented x 3; no gross focal neurologic deficits Skin- warm & dry Discharge Data Allergies Allergy/AdvReac Type Severity Reaction Status Date / Time No Known Allergies Allergy Verified 03/16/20 14:25 Consultations 04/11/20 16:26 ED Decision to Admit Stat 04/11/20 18:08 Consult Case Management - Discharge Planning Routine Consult Psychiatry Routine Ordered Studies 04/11/20 12:07 CT cervical spine wo con Stat FINDINGS: No fractures. No subluxation. Prevertebral soft tissues and the C1-C2 interval are intact. No pneumothorax. 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 IMPRESSION: No fractures within the cervical spine. CT head/brain wo con Stat Findings: Mild motion artifact. The paranasal sinuses and mastoid air cells are clear. The calvarium and skull base are intact. The ventricles and sulci are within normal limits. There is no mass, hematoma, midline shift, or acute infarct. Impression: Mild motion artifact. No definite acute intracranial abnormality. Hospital Course (1) Alcohol withdrawal: ALCOHOLISM ALCOHOL WITHDRAWAL Pt is 59 y/o M with PMH depression, prior suicidal ideations, alcohol abuse, tobacco use presented to ER with police for alcohol intoxication and reported suicidal comments to police no signs of overt DTs noted while admitted placed on alcohol withdrawal protocol including Librium taper, PRN Ativan patient decided to sign out against medical advice explained he has not yet completed the librium alcohol withdrawal protocol and it is unsafe for him to go home leaving against medical advice can result to worsening of medical condition, seizures, organ damage, paralysis or even patient states he feels fine and still strongly requested that he be discharged AMA form signed but given d/c instructions including gapabentin taper x 2 days, per discussion with psych service patient reports he has ff up with [facility] tomorrow for PCP ff up and ongoing discussion regarding alcohol rehab, he declined alcohol rehab placement after hospital admission patient should be re- evaluated regarding fitness for driving [facility] ([facility]) Depression: H/O Depression and Suicidal Ideations Reported by police was making suicidal comments In ER , pt denies suicidal ideations or homicidal ideations to ER and admitting team -- Psych consulted, recommendations: "no indication for inpatient psychiatric hospitalization, no indication for involuntary commitment he agrees to continue his current level of outpatient D&A counseling and care with [facility] by the end of the conversation, it seems that he has finally agreed to a trial of naltrexone, will defer timing of start to hospitalist, generally after detox with benzos can restart zoloft at previous dose when sodium stable and no significant GI issues" -- Zoloft resumed -- patient signed out AMA recommended to ff up closely with PCP (3) Hypertension: - BP stable overall -Continue lisinopril, clonidine (4) Tobacco use: -Pt denies nicotine patch at this time (5) GERD (gastroesophageal reflux disease): -Continue PPI Disposition d/c home ff up with [facility] for PCP the next day Total Time Total Time Spent Total Time Spent (In Minutes): 50 minutes Discharge Plan Discharge Items Patient Disposition: Against Medical Advice Reason For Visit: RTOH WITHDRAWAL Discharge Diagnosis: ALCOHOL WITHDRAWAL Activity: As commented below Activity Comment: RESUME GRADUALLY TOLERATED, NO HEAVY EXERTION Lifting: Wait until after follow-up appointment Bathing Comment: NO BATHING IN THE TUB, SWIMMING Exercise/Sports: Wait until after follow-up appointment Driving/Machine Use: NO DRIVING UNTIL RE-EVALUATED AND ALLOWED BY PRIMARY CARE PHYSICIAN Non-emergency contact: Primary Care Provider Call non-emergency contact if: you have any medication questions, your symptoms worsen and you have a fever Follow-up/Referrals: PCP,NO [Primary Care Provider] - Diet: Heart Healthy Addtl Attending Provider Instructions: YOUR NEW MEDICATION IS GABAPENTIN- TO PREVENT ALCOHOL WITHDRAWAL. TAKE GABAPENTIN 300MG FOLLOWS: 2 CAPSULES EVERY 12 HOURS X 1 DAY, THEN 2 CAPSULES DAILY X 1 DAY, THEN STOP DO NOT TAKE GABAPENTIN IF YOU ARE DRINKING ALCOHOL AGAIN. RETURN TO ER IMMEDIATELY IF WITH INCREASING ANXIETY, SWEATING, TREMORS, FEELING CONFUSED, HALLUCINATIONS. FOLLOW UP WITH YOUR PRIMARY CARE PHYSICIAN SCHEDULED TOMORROW. FOLLOW UP WITH YOUR PSYCHIATRIST SCHEDULED. NO DRIVING UNTIL RE-EVALUATED AND ALLOWED BY PRIMARY CARE PHYSICIAN. Pending Studies at Discharge: No Stand-Alone Forms: My [facility] [place], Smoking Cessation, Suicide Prevention Resources Medications and DC Order Prescriptions: New gabapentin 300 mg capsule 600 mg PO UD Qty: 6 RF: 0 Continued lisinopril 20 mg Tablet 20 mg PO HS RF: 0 omeprazole 20 mg Tablet,Delayed Release (Dr/Ec) 20 mg PO DAILY RF: 0 sertraline 100 mg Tablet 100 mg PO DAILY RF: 0 multivitamin [Daily-Wes] Tablet 1 tab PO QAM 30 Days Qty: 30 RF: 0 thiamine HCl (vitamin B1) [Vitamin B-1] 100 mg Tablet 100 mg PO QAM 30 Days Qty: 30 RF: 0 folic acid 1 mg Tablet 1 mg PO QAM 30 Days Qty: 30 RF: 0 clonidine HCl 0.1 mg tablet 0.1 mg PO BID Qty: 0 RF: 0 Discharge Orders: Left Against Medical Advice (Routine); Ordered 04/13/20 Ordered By: Jhon Myers Admission Data Admit Date/Time: 04/11/20 16:51 Attending Provider: Jhon Myers Admit Provider: Tez Espinal Primary Care Provider: PCP,NO Other Providers: Tez Espinal ; Roxanna Pendleton Other [place] Date/Time DO NOT enter until pt leaves facility: 04/13/20 13:24
== END 2020-04-13 13:24 | disposition left against medical advice (07) | DRG 894 ==
LOC: ED 11:33 → 2S 16:51 → SUATTDRO 16:51 → 2S 17:50 → 2W 04-12 20:58

== ENCOUNTER 2020-05-22 20:10 | Inpatient (IN) ==
--- NOTE | 2020-05-22 20:14 | Emergency Department Note ---
Impression & Plan Alcohol intoxication, Acute hypokalemia, Transaminitis, Hypocalcemia, Depressed mood ED Provider Note NAME: ROBI WREN AGE: 59 SEX: M : 1960 ARRIVES VIA: Ambulance INFORMANT: Patient, ED PROVIDER(S): Dev Galeano MD Chief Complaint: Suicidal ideation HPI: Patient does present with concern for suicidal ideation. The patient does not have acute plan. The patient states he has had increasingly depressed thoughts but does have a baseline depression. The patient is not been taking his medications. The patient does drink a 30 pack daily. Patient states that he last drank today. The patient denies any fevers or chills. The patient denies access to guns or weapons. The patient denies any AVH. When asked about wanting to harm someone he states "democrats." The patient does use smokeless t obacco as well as cigarettes when he drinks. Patient states his sleep has been okay but his appetite is been poor as he primarily drinks alcohol but does not eat food. ROS: See HPI for pertinent positives and negatives. A total of 10 systems were reviewed and otherwise negative. Past medical history: See below Surgical history: See below Social history: See below Physical Exam: GENERAL: Comfortable, resting, easily arousable EYE EXAM: Normal conjunctiva. PERRL, no anisocoria and EOM's grossly intact w/o pain. NECK: Supple, no nuchal rigidity, no adenopathy, non-tender. No signs of meni ngismus. LUNGS: Clear to auscultation. Normal chest wall mechanics. HEART: NSR, no MRG. ABDOMEN: Abdomen soft, non-tender, normo-active bowel sounds, no masses, no rebound or guarding. BACK: No CVA TTP. SKIN: No rashes and no bruising. UPPER EXTREMITIES: Upper extremities are grossly normal. LOWER EXTREMITIES: Grossly normal, no edema. NEURO EXAM: A&O x3, cranial nerves II-XII grossly intact, normal speech, moves all 4 extremities on command w/o issue. Differential diagnoses: Mood disorder, infection, hypoglycemia, electrolyte abnormalities, cardiac sources, intracerebral event, toxicologic, trauma, neurologic, as well as other pathologies. Course: Patient was seen and evaluated the bedside. Full history physical exam was performed. MDM: Patient was seen due to concern for alcohol intoxication with active SI. Blood work was obtained. Patient does have an elevated alcohol 296. UDS salicylate and Tylenol levels unremarkable. Urine is negative. Mild transaminitis hypocalcemia and mild hypokalemia noted. Given the patient's acute intoxication not currently medically cleared. Patient was signed out to the evening physician Dr. Jacobo pending reevaluation and disposition by the psych case assistant. Observation: Patient has PMX of alcohol abuse with no pertinent family history. Observation began at 2011 and was necessary in order to rule out, monitor, reassess and mitigate the risk of the patient, ensure their relative safety, and potentially avoid an admission. Upon re-evaluation, observation revealed that the patient could not be safely discharged at this time after noting the patient is clinically intoxicated with an elevated blood alcohol level. Observation time continued at the time of signout at 0108 on 05/23/[address] Jacobo. Past Med/Surg History Medical History Alcohol dependence Depression GERD (gastroesophageal reflux disease) Smoker Suicidal thoughts Surgical History No history of previous surgery Family History Father , age 70 from ID Coronary heart disease Social History Smoking Status: Current some day smoker Tobacco Type: Cigarettes and Smokeless Tobacco (Dip or Chew) Second Hand Exposure: Yes; Hx Alcohol Use: Yes Alcohol type: beer Hx Substance Use: No Preferred Language: Polish Communication Ability: Effective Radial Drill Operator Required: No Beliefs That Will Affect Care: None marital status: Current Living Situation: Alone Current Living Situation Comment: pt states lives in large farmhouse where two brothers unrelated to him live Feels Safe at Home: Yes Allergies Allergies Allergy/AdvReac Type Severity Reaction Status Date / Time No Known Allergies Allergy Verified 05/18/20 23:47 Home Meds Home Medications Medication Instructions Recorded Confirmed lisinopril 20 mg PO HS 03/16/20 05/22/20 omeprazole 40 mg PO DAILY 03/16/20 05/22/20 sertraline 150 mg PO DAILY 03/16/20 05/22/20 Previous Rx's Medication Instructions Recorded clonidine HCl 0.1 mg PO BID #0 tab 03/19/20 Results & Data (ED) Vital Signs Vital Signs - 24 hr 05/22/20 20:20 05/22/20 20:31 05/22/20 22:40 Temperature 36.9 C 36.9 C Temperature Source Oral Pulse Rate 82 82 Pulse Rate [Finger] 82 Respiratory Rate 18 18 18 Blood Pressure [Left Arm] 131/80 Blood Pressure Mean [Left Arm] 97 Pulse Oximetry 93 93 93 Oxygen Delivery Method Room Air Room Air Room Air Sepsis Recent Fever Within 48 Hours No No Sepsis New/Unexplained Change in Mental Status No No Sepsis Action Taken by Nursing No Action Required 05/23/20 00:51 Temperature Temperature Source Pulse Rate Pulse Rate [Finger] 75 Respiratory Rate 18 Blood Pressure [Left Arm] 127/83 Blood Pressure Mean [Left Arm] 97 Pulse Oximetry 90 Oxygen Delivery Method Room Air Sepsis Recent Fever Within 48 Hours Sepsis New/Unexplained Change in Mental Status Sepsis Action Taken by Custodial Medications Current Medication List: was personally reviewed by me Laboratory Data Attestation: I reviewed the patient's lab results. Result diagrams: 05/22/20 20:39 05/22/20 20:39 Lab Results 05/22/20 05/22/20 05/22/20 Range/Units 20:39 20:39 20:39 WBC 5.72 (4.8-10.8) K/uL RBC 5.33 (4.7-6.1) M/uL Hgb 18.0 (14.0-18.0) g/dL Hct 48.9 (42-52) % MCV 91.7 (80-100) fL MCH 33.8 (25-34) pg MCHC 36.8 H (32-36) g/dL RDW Std Deviation 42.8 (36.4-46.3) fL RDW Coeff of Eloy 12.7 (11.5-14.5) % Plt Count 167 (130-400) K/uL MPV 9.7 (7.4-10.4) fL Immature Gran % (Auto) 0.2 % Neut % (Auto) 44.5 % Lymph % (Auto) 46.0 % [place] % (Auto) 8.0 % Eos % (Auto) 1.0 % Baso % (Auto) 0.3 % Neut # (Auto) 2.54 (1.4-6.5) K/uL Lymph # (Auto) 2.63 (1.2-3.4) K/uL [place] # (Auto) 0.46 (0.11-0.59) K/uL Eos # (Auto) 0.06 (0-0.5) K/uL Baso # (Auto) 0.02 (0-0.2) K/uL Immature Gran # (Auto) 0.01 (0.00-0.02) K/uL Sodium 137 (136-145) mmol/L Potassium 3.3 L (3.5-5.1) mmol/L Chloride 105 (98-107) mmol/L Carbon Dioxide 23 (21-32) mmol/L Anion Gap 9.0 (3-11) BUN 10 (7-18) mg/dl Creatinine 0.91 (0.6-1.4) mg/dl Est Cr Clr Drug Dosing 90.2 ml/min Est GFR ( Amer) 106.5 Est GFR (Non-Af Amer) 91.9 BUN/Creatinine Ratio 10.7 (10-20) Glucose 104 H (70-99) mg/dl Calcium 8.3 L (8.5-10.1) mg/dl Total Bilirubin 0.9 (0.2-1) mg/dl AST 97 H (15-37) U/L ALT 121 H (12-78) U/L Alkaline Phosphatase 79 (45-117) U/L Total Protein 8.0 (6.4-8.2) gm/dl Albumin 4.0 (3.4-5.0) gm/dl Globulin 4.0 (2.5-4.0) gm/dl Albumin/Globulin Ratio 1.0 (0.9-2) TSH 1.260 (0.300-4.500) uIu/ml Urine Color Urine Appearance (Clear) Urine pH (4.5-7.5) Ur Specific [place] (1.000-1.030) Urine Protein (Negative) Urine Glucose (UA) (Negative) Urine Ketones (Negative) Urine Blood (Negative) Urine Nitrite (Negative) Urine Bilirubin (Negative) Urine Urobilinogen (Negative) Ur Leukocyte Esterase (Negative) Salicylates 2.4 L (2.8-20) mg/dl Urine Opiates Screen (Neg) Ur Methadone, Qual (Neg) Acetaminophen < 2 L (10-30) ug/ml Urine Barbiturates (Neg) Ur Phencyclidine (PCP) (Neg) U Amphetamin/Meth Scrn (Neg) MDMA (Ecstasy) Screen (Neg) U Benzodiazepines Scrn (Neg) Ur Cocaine Metabolite (Neg) U Marijuana (THC) Screen (Neg) Ethyl Alcohol mg/dL (0-3) mg/dl 05/22/20 05/22/20 05/22/20 Range/Units 20:39 21:20 21:20 WBC (4.8-10.8) K/uL RBC (4.7-6.1) M/uL Hgb (14.0-18.0) g/dL Hct (42-52) % MCV (80-100) fL MCH (25-34) pg MCHC (32-36) g/dL RDW Std Deviation (36.4-46.3) fL RDW Coeff of [place]oy (11.5-14.5) % Plt Count (130-400) K/uL MPV (7.4-10.4) fL Immature Gran % (Auto) % Neut % (Auto) % Lymph % (Auto) % [place] % (Auto) % Eos % (Auto) % Baso % (Auto) % Neut # (Auto) (1.4-6.5) K/uL Lymph # (Auto) (1.2-3.4) K/uL [place] # (Auto) (0.11-0.59) K/uL Eos # (Auto) (0-0.5) K/uL Baso # (Auto) (0-0.2) K/uL Immature Gran # (Auto) (0.00-0.02) K/uL Sodium (136-145) mmol/L Potassium (3.5-5.1) mmol/L Chloride (98-107) mmol/L Carbon Dioxide (21-32) mmol/L Anion Gap (3-11) BUN (7-18) mg/dl Creatinine (0.6-1.4) mg/dl Est Cr Clr Drug Dosing ml/min Est GFR ( Amer) Est GFR (Non-Af Amer) BUN/Creatinine Ratio (10-20) Glucose (70-99) mg/dl Calcium (8.5-10.1) mg/dl Total Bilirubin (0.2-1) mg/dl AST (15-37) U/L ALT (12-78) U/L Alkaline Phosphatase (45-117) U/L Total Protein (6.4-8.2) gm/dl Albumin (3.4-5.0) gm/dl Globulin (2.5-4.0) gm/dl Albumin/Globulin Ratio (0.9-2) TSH (0.300-4.500) uIu/ml Urine Color Yellow Urine Appearance Clear (Clear) Urine pH 5.5 (4.5-7.5) Ur Specific [place] 1.006 (1.000-1.030) Urine Protein Negative (Negative) Urine Glucose (UA) Negative (Negative) Urine Ketones Negative (Negative) Urine Blood Negative (Negative) Urine Nitrite Negative (Negative) Urine Bilirubin Negative (Negative) Urine Urobilinogen Negative (Negative) Ur Leukocyte Esterase Negative (Negative) Salicylates (2.8-20) mg/dl Urine Opiates Screen Neg (Neg) Ur Methadone, Qual Neg (Neg) Acetaminophen (10-30) ug/ml Urine Barbiturates Neg (Neg) Ur Phencyclidine (PCP) Neg (Neg) U Amphetamin/Meth Scrn Neg (Neg) MDMA (Ecstasy) Screen Neg (Neg) U Benzodiazepines Scrn Neg (Neg) Ur Cocaine Metabolite Neg (Neg) U Marijuana (THC) Screen Neg (Neg) Ethyl Alcohol mg/dL 296.0 H (0-3) mg/dl Discharge Plan Visit Data Chief Complaint: Mental Health Evaluation Stated Complaint: [employer] ED Provider: Dev Galeano Discharge Problem: Alcohol intoxication, Acute hypokalemia, Transaminitis, Hypocalcemia, Depressed mood Forms Stand Alone Forms: My [facility], Suicide Prevention Resources Prescriptions Prescriptions: No Action lisinopril 20 mg Tablet 20 mg PO HS RF: 0 omeprazole 20 mg Tablet,Delayed Release (Dr/Ec) 40 mg PO DAILY RF: 0 sertraline 100 mg Tablet 150 mg PO DAILY RF: 0 clonidine HCl 0.1 mg tablet 0.1 mg PO BID Qty: 0 RF: 0 Discharge Problem: Alcohol intoxication Qualifiers: Complication of substance-induced condition: uncomplicated Qualified Code(s): F10.920 - Alcohol use, unspecified with intoxication, uncomplicated
[2020-05-22 20:50] LABS: Basophils # (auto) 0.02 K/uL (0-0.2); Basophils % (auto) 0.3 %; Eosinophils # (auto) 0.06 K/uL (0-0.5); Hematocrit (blood only) 48.9 % (42-52); Immature Granulocytes # (auto) 0.01 K/uL (0.00-0.02); Immature Granulocytes % (auto) 0.2 %; Lymphocytes # (auto) 2.63 K/uL (1.2-3.4); Mean Corpuscular Hemoglobin 33.8 pg (25-34); Mean Corpuscular Hgb Conc 36.8 g/dL (32-36); Mean Corpuscular Volume 91.7 fL (80-100); Mean Platelet Volume 9.7 fL (7.4-10.4); Monocytes # (auto) 0.46 K/uL (0.11-0.59); Neutrophils # (auto) 2.54 K/uL (1.4-6.5); Neutrophils % (auto) 44.5 %; Platelet Count 167 K/uL (130-400); RDW Coefficient of Variation 12.7 % (11.5-14.5); RDW Standard Deviation 42.8 fL (36.4-46.3); Red Blood Count 5.33 M/uL (4.7-6.1); White Blood Count 5.72 K/uL (4.8-10.8)
[2020-05-22 21:08] LABS: BUN Creatinine Ratio 10.7 (10-20); Calcium 8.3 mg/dl (8.5-10.1); Creatinine Clr Calc Pharmacy 90.2 ml/min; Est GFR (African American) 106.5; Est GFR (Non-African American) 91.9; Potassium 3.3 mmol/L (3.5-5.1)
[2020-05-22 21:16] LABS: Acetaminophen < 2 ug/ml (10-30); Salicylate 2.4 mg/dl (2.8-20)
[2020-05-22 21:18] LABS: Bilirubin,Total 0.9 mg/dl (0.2-1); Thyroid Stimulating Hormone 1.26 uIu/ml (0.300-4.500)
[2020-05-22 21:27] LABS: Appearance Urine Clear (Clear); Bilirubin Urine Negative (Negative); Blood Urine Negative (Negative); Color Urine Yellow; Glucose Urine UA Negative (Negative); Ketones Urine Negative (Negative); Leukocyte Esterase Urine Negative (Negative); Nitrite Urine Negative (Negative); Protein Urine Negative (Negative); Specific Gravity Urine 1.006 (1.000-1.030); Urobilinogen Urine Negative (Negative); pH Urine 5.5 (4.5-7.5)
[2020-05-22 21:51] LABS: Amphetamines+Metham, Urine Neg (Neg); Barbiturates, Urine Neg (Neg); Benzodiazepine, Urine Neg (Neg); Cocaine, Urine Neg (Neg); MDMA (Ecstacy), Urine Neg (Neg); Methadone, Urine Neg (Neg); Opiate, Urine Neg (Neg); Phencyclidine, Urine Neg (Neg)
[2020-05-23] MEDS ORDERED: LORazepam 1 MG TAB PO PRN ×2 (00:07→02:35)
[2020-05-23] MEDS ORDERED: MULTI-VITAMIN INFUSION 10 ML, THIAMINE HCL 100 MG, FOLIC ACID 1 MG in SODIUM CHLORIDE 0... IV ONE (02:35)
[2020-05-23] MEDS ORDERED: cloNIDine HCL 0.1 MG TAB PO ONE (02:53)
[2020-05-23] MEDS ORDERED: POTASSIUM CHLORIDE 20 MEQ TABCR PO STA (02:54)
[2020-05-23] MEDS ORDERED: CALCIUM GLUCONATE 10% 1,000 MG in SODIUM CHLORIDE 0.9% 50 ML IV STA (02:57)
[2020-05-23] MEDS ORDERED: GABAPENTIN 600 MG TAB PO STA (02:57)
[2020-05-23 03:05] LABS: Magnesium 2.2 mg/dl (1.8-2.4)
[2020-05-23] MEDS ORDERED: CALCIUM GLUCONATE 10% 10 ML VIAL IV ONE (03:10)
--- NOTE | 2020-05-23 03:26 | History & Physical Report ---
Date of Service May 23, 2020 Assessment & Plan (1) Alcohol withdrawal: Alcohol withdrawal: Hypertensive urgency secondary to above, medication noncompliance Suicidality Hypokalemia secondary to poor p.o. intake Ongoing tobacco abuse Med telemetry DT precautions Facilitate home BP meds, may need dose titration Psych consult RE depression, suicidality Replace potassium nicotine patch as needed Social service RE discharge planning DVT prophylaxis. Lovenox subcu Full code Text document was generated using [employer] voice recognition software. It may contain grammatical or spelling errors. Kindly contact undersigned for clarification of any documentation item in q uestion. History of Present Illness Chief Complaint: Suicidality Primary Care Provider: [facility] History obtained from patient and records. 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 Last confinement last month for alcohol withdrawal. Patient left hospital AGAINST MEDICAL ADVICE as per records. Patient went back to drinking soon after returning home. On and off suicidal ideations in the last few weeks. Patient seen at the ER 5 days ago for alcohol intoxication and depression. Patient later discharged home after denying suicidal ideation. Patient returned to the ER last night with recurrent suicidal ideations at home. Patient denies chest pain, S OB. Usual achy abdominal discomfort. No constipation, no diarrhea. Poor appetite. Medical History as above Surgical History : None Family History : Alcoholism, heart disease Personal/social history: 1/4 pack daily, alcohol abuse, currently unemployed Allergies Allergy/AdvReac Type Severity Reaction Status Date / Time No Known Allergies Allergy Verified 05/18/20 23:47 Home Medications Home Medications Medication Instructions Recorded Confirmed Type lisinopril 20 mg PO HS 03/16/20 05/22/20 History omeprazole 40 mg PO DAILY 03/16/20 05/22/20 History sertraline 150 mg PO DAILY 03/16/20 05/22/20 History clonidine HCl 0.1 mg PO BID #0 tab 03/19/20 05/22/20 Rx Past Med/Surg History Medical History Alcohol dependence Depression GERD (gastroesophageal reflux disease) Smoker Suicidal thoughts Surgical History No history of previous surgery Family History Father , age 70 from [place] Coronary heart disease Social History Smoking Status: Current every day smoker Tobacco Type: Cigarettes and Smokeless Tobacco (Dip or Chew) Second Hand Exposure: Yes; Hx Alcohol Use: Yes Alcohol type: beer Hx Substance Use: No Preferred Language: Botswanan Communication Ability: Effective Crime Scene Analyst Required: No Beliefs That Will Affect Care: None marital status: Current Living Situation: Alone Current Living Situation Comment: pt states lives in large farmhouse where two brothers unrelated to him live Feels Safe at Home: Yes Safety Concerns: Feels Safe At This Time Review of Systems Review of Systems: As per HPI, all 10 systems reviewed, all other ROS negative Physical Exam Physical Exam: GENERAL: Flat affect, tremulous, no respiratory distress SKIN: Normal color, warm HEENT: [place] palpebral conjunctivae, no ptosis, dry buccal mucosa NECK : Supple, no tenderness CHEST : CTA, no tenderness HEART : RRR, no obvious murmurs ABDOMEN: Some distention, nontender EXTREMITIES : No LE swelling/tenderness, no other conspicuous deformities noted NEUROLOGIC : Coherent, no facial asymmetry, tremulous, no other gross focality Results & Data Results & Data ([facility]) Vital Signs (Past 12 Hours) Vital Signs Temp Pulse Pulse Resp BP Pulse Ox 05/23/20 02:25 78 18 175/98 H 92 05/23/20 00:51 75 18 127/83 90 05/22/20 22:40 82 18 131/80 93 05/22/20 20:31 36.9 C 82 18 93 05/22/20 20:20 36.9 C 82 18 93 Laboratory Results Laboratory Results WBC 5.72 K/uL (4.8-10.8) 05/22/20 20:39 RBC 5.33 M/uL (4.7-6.1) 05/22/20 20:39 Hgb 18.0 g/dL (14.0-18.0) 05/22/20 20:39 Hct 48.9 % (42-52) 05/22/20 20:39 MCV 91.7 fL (80-100) 05/22/20 20:39 MCH 33.8 pg (25-34) 05/22/20 20:39 MCHC 36.8 g/dL (32-36) H 05/22/20 20:39 RDW Std Deviation 42.8 fL (36.4-46.3) 05/22/20 20: RDW Coeff of Eloy 12.7 % (11.5-14.5) 05/22/20 20:39 Plt Count 167 K/uL (130-400) 05/22/20 20:39 MPV 9.7 fL (7.4-10.4) 05/22/20 20:39 Immature Gran % (Auto) 0.2 % 05/22/20 20:39 Neut % (Auto) 44.5 % 05/22/20 20:39 Lymph % (Auto) 46.0 % 05/22/20 20:39 [place] % (Auto) 8.0 % 05/22/20 20: Eos % (Auto) 1.0 % 05/22/20 20:39 Baso % (Auto) 0.3 % 05/22/20 20:39 Neut # (Auto) 2.54 K/uL (1.4-6.5) 05/22/20 20:39 Lymph # (Auto) 2.63 K/uL (1.2-3.4) 05/22/20 20:39 [place] # (Auto) 0.46 K/uL (0.11-0.59) 05/22/20 20:39 Eos # (Auto) 0.06 K/uL (0-0.5) 05/22/20 20:39 Baso # (Auto) 0.02 K/uL (0-0.2) 05/22/20 20:39 Immature Gran # (Auto) 0.01 K/uL (0.00-0.02) 05/22/20 20:39 Sodium 137 mmol/L (136-145) 05/22/20 20:39 Potassium 3.3 mmol/L (3.5-5.1) L 05/22/20 20:39 Chloride 105 mmol/L (98-107) 05/22/20 20:39 Carbon Dioxide 23 mmol/L (21-32) 05/22/20 20:39 Anion Gap 9.0 (3-11) 05/22/20 20:39 BUN 10 mg/dl (7-18) 05/22/20 20:39 Creatinine 0.91 mg/dl (0.6-1.4) 05/22/20 20:39 Est Cr Clr Drug Dosing 90.2 ml/min 05/22/20 20:39 Est GFR ( Amer) 106.5 05/22/20 20:39 Est GFR (Non-Af Amer) 91.9 05/22/20 20:39 BUN/Creatinine Ratio 10.7 (10-20) 05/22/20 20:39 Glucose 104 mg/dl (70-99) H 05/22/20 20:39 Calcium 8.3 mg/dl (8.5-10.1) L 05/22/20 20:39 Magnesium 2.2 mg/dl (1.8-2.4) 05/22/20 20:39 Total Bilirubin 0.9 mg/dl (0.2-1) 05/22/20 20:39 AST 97 U/L (15-37) H 05/22/20 20:39 ALT 121 U/L (12-78) H 05/22/20 20:39 Alkaline Phosphatase 79 U/L (45-117) 05/22/20 20:39 Total Protein 8.0 gm/dl (6.4-8.2) 05/22/20 20:39 Albumin 4.0 gm/dl (3.4-5.0) 05/22/20 20:39 Globulin 4.0 gm/dl (2.5-4.0) 05/22/20 20:39 Albumin/Globulin Ratio 1.0 (0.9-2) 05/22/20 20:39 TSH 1.260 uIu/ml (0.300-4.500) 05/22/20 20:39 Urine Color Yellow 05/22/20 21:20 Urine Appearance Clear (Clear) 05/22/20 21:20 Urine pH 5.5 (4.5-7.5) 05/22/20 21:20 Ur Specific [place] 1.006 (1.000-1.030) 05/22/20 21:20 Urine Protein Negative (Negative) 05/22/20 21:20 Urine Glucose (UA) Negative (Negative) 05/22/20 21:20 Urine Ketones Negative (Negative) 05/22/20 21:20 Urine Blood Negative (Negative) 05/22/20 21:20 Urine Nitrite Negative (Negative) 05/22/20 21:20 Urine Bilirubin Negative (Negative) 05/22/20 21:20 Urine Urobilinogen Negative (Negative) 05/22/20 21:20 Ur Leukocyte Esterase Negative (Negative) 05/22/20 21:20 Salicylates 2.4 mg/dl (2.8-20) L 05/22/20 20:39 Urine Opiates Screen Neg (Neg) 05/22/20 21:20 Ur Methadone, Qual Neg (Neg) 05/22/20 21:20 Acetaminophen < 2 ug/ml (10-30) L 05/22/20 20:39 Urine Barbiturates Neg (Neg) 05/22/20 21:20 Ur Phencyclidine (PCP) Neg (Neg) 05/22/20 21:20 U Amphetamin/Meth Scrn Neg (Neg) 05/22/20 21:20 MDMA (Ecstasy) Screen Neg (Neg) 05/22/20 21:20 U Benzodiazepines Scrn Neg (Neg) 05/22/20 21:20 Ur Cocaine Metabolite Neg (Neg) 05/22/20 21:20 U Marijuana (THC) Screen Neg (Neg) 05/22/20 21:20 Ethyl Alcohol mg/dL 296.0 mg/dl (0-3) H 05/22/20 20:39
[2020-05-23] MEDS ORDERED: ACETAMINOPHEN 325 MG TAB PO PRN (06:10)
[2020-05-23] MEDS ORDERED: OXYCODONE HCL IR 5 MG TAB (IMMEDIATE RELEASE) PO PRN (06:10)
[2020-05-23] MEDS ORDERED: ATIVAN IV ALCOHOL WITHDRAWL IV PRN (06:10)
[2020-05-23] MEDS ORDERED: GABAPENTIN 1200MG ALCOHOL WITHDRAWAL LOAD PO STA (06:10)
[2020-05-23] MEDS ORDERED: PROMETHAZINE HCL 12.5 MG in SODIUM CHLORIDE 0.9% 50 ML IV PRN (06:10)
[2020-05-23] MEDS ORDERED: LORazepam 3 MG/6 ML VIAL IV PRN (06:10)
[2020-05-23] MEDS: lisinopriL 20 MG TAB PO SCH ×2 (06:47→21:09)
[2020-05-23] MEDS: LORazepam 2 MG/4 ML VIAL IV PRN (07:45)
[2020-05-23] MEDS: PANTOprazole 40 MG TAB PO SCH (09:00)
[2020-05-23] MEDS: SERTRALINE HCL 50 MG TABLET PO SCH (09:00)
[2020-05-23] MEDS: cloNIDine HCL 0.1 MG TAB PO SCH ×2 (09:01→21:09)
[2020-05-23] MEDS: GABAPENTIN 600 MG TAB PO SCH ×2 (09:01→15:06)
[2020-05-23] MEDS: ENOXAPARIN INJ 30 MG/0.3 ML SYR SQ SCH (09:05)
[2020-05-23] MEDS: LORazepam 1 MG/2 ML VIAL IV PRN ×3 (11:43→21:09)
--- NOTE | 2020-05-23 13:03 | Psychiatric Consultation ---
Date of Consultation May 23, 2020 Impression / Recommendations Impression Dr. Reinaldo Plaza was directly involved in review and discussion of the patient's case and participated in medical decision making regarding treatment recommendations. RECOMMENDATIONS: 05/23 - Psychiatric consultation requested by hospitalist service to evaluate patient for depression and suicidality. - Management of alcohol withdrawal per primary team. Pt is being monitored routinely with AWSS protocol, on gabapentin taper. Case management consulted for assistance with discharge planning. - Pt admits to depressed mood and hopelessness, but denies active SI or plan/intent to harm himself or end his life. Primary diagnosis continues to be substance-induced mood disorder, as patient chronically uses alcohol which is likely the primary contributing factor to depressed mood. Pt is denying acute safety concerns and is not verbalizing any criteria that could be utilized to commit him for involuntarily psychiatric admission. Patient's needs would be best met in the inpatient D&A rehab setting, and primary recommendation is for discharge directly to inpatient rehab when medically cleared. This was reviewed with the patient, who is not yet sure that he is interested in rehab. - Pt has numerous outpatient supports who are willing to facilitate appropriate treatment options (psychiatric providers at [facility] and substance abuse case manager specialist through [facility]). Recommendation from outpatient providers is also for inpatient rehab. - Unfortunately, under mental health laws in [place] there is no ability to commit a patient involuntarily to D&A rehab. (1) Substance induced mood disorder: (2) Alcohol withdrawal: Risk Factors Assessment Do You Have Access To A Gun?: No (police previously removed firearm) Protective Factors Assessment Employed: No (stopped working in October) Psych History Identifying Data 59-year-old male admitted medically on 05/23/2020 after presenting to the ED with suicidality in the context of alcohol intoxication. BAL on admission was 296. Pt was admitted for alcohol withdrawal. Psychiatric consultation was requested by hospitalist team to evaluate the patient for suicidality. Pt is well-known to our service from previous consultations for similar presentations. Chief Complaint "Things keep getting worse all the time." History of Present Illness Shadi Davalos is a 59-year-old male admitted medically on 05/23/2020 after presenting to the ED with suicidality in the context of alcohol intoxication. ED documentation suggests the patient did not have an acute suicide plan at time of his presentation, but did endorse increased depression. Pt was admitted medically for alcohol withdrawal. Psychiatric consultation was requested by hospitalist team to evaluate the patient for suicidality. Pt has been seen routinely on our consult service for similar presentations, most recent consult dates of 04/12/2020, 03/17/2020, and 01/11/2020 with numerous previous consultations. Historically, patient has verbalized SI in the context of alcohol intoxication but denies SI when sober. He generally requests to return home on discharge rather than comply with recommendations for inpatient D&A rehab. Pt's case was reviewed during morning report with psychiatric nurse liaison and supervising psychiatrist. Pt is cooperative with evaluation today. He states "things keep getting worse all the time." When asked what patient feels is contributing to this, he initially states "the alcohol" but then begins to report numerous other situational stressors - many of which also relate to his alcohol use. Pt admits his alcohol use has increased over "the past few months". He continues to drink a 30-pack of Dexter Light each day, stating "it's an all day process." Pt has numerous supports through [facility] and [facility] that have agreed to assist him with D&A rehab when he is agreeable. Pt continues to be unsure if he is willing for this. Pt does admit to feeling depressed and "hopeless, like I just don't care." When provided with examples of active SI versus passive SI dialogue, he identifies more with passive thoughts. He states "I haven't given a lot of time to thinking about a plan. To be honest, I would never do it. I know I have a lot of medication, and if I took it it wouldn't be good, but I never would." Pt states he is regularly in contact with his D&A case manager specialist though the [facility] and that they had been talking about rehab options. Pt simultaneously states he needs help and is ready to make changes, but then also verbalizes numerous perceived barriers to treatment. Pt does not feel that inpatient psychiatric treatment is necessary, and he was reminded that our primary recommendation regardless of intermediary steps is for inpatient D&A rehab. This provider offered for our service to contact the [facility] and discuss options with his case manager specialist. Pt declined, stating "I'll call him." Pt was informed we would remain involved in his case, but made our recommendations clear. He denied additional needs at this time. Past Psychiatric History Current Psychiatric Diagnosis: Alcohol dependance; alcohol-induced depressive disorder Outpatient Services: [facility] for therapy. Sertraline prescribed by primary care physician through [facility]. Previous Psych Admissions: [place] - 2018 [facility] - 09/2019, suicidality and alcohol intoxication [facility] - 11/19/2019 Do You Have Access To A Gun?: No (police previously removed firearm) History of Previous Suicide Attempt: No Past Medication Trials: Sertraline - has historically been beneficial, though only during periods of sobriety. Allergies Allergy/AdvReac Type Severity Reaction Status Date / Time No Known Allergies Allergy Verified 05/18/20 23:47 Home Medications Home Medications Medication Instructions Recorded Confirmed Type lisinopril 20 mg PO HS 03/16/20 05/22/20 History omeprazole 40 mg PO DAILY 03/16/20 05/22/20 History sertraline 150 mg PO DAILY 03/16/20 05/22/20 History clonidine HCl 0.1 mg PO BID #0 tab 03/19/20 05/22/20 Rx Family History Family history of alcoholism and drug abuse. No known family history of psychiatric conditions. Substance Abuse History Uses chewing tobacco daily. Has been consuming at least a 30-pack of Dexter Light. Has been to inpatient D&A rehab 9-10 times in the past. History of admissions at [facility], [facility], and [place] [facility]. 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 Patient History Medical History Alcohol dependence Depression GERD (gastroesophageal reflux disease) Smoker Suicidal thoughts Surgical History No history of previous surgery Family History Father , age 70 from [place] Coronary heart disease Social History Smoking Status: Current every day smoker Tobacco Type: Cigarettes and Smokeless Tobacco (Dip or Chew) Second Hand Exposure: Yes; Hx Alcohol Use: Yes Alcohol type: beer Hx Substance Use: No Preferred Language: Tajik Communication Ability: Effective Compound Finisher Required: No Beliefs That Will Affect Care: Mandaen marital status: Current Living Situation: Alone Current Living Situation Comment: pt states lives in large farmhouse where two brothers unrelated to him live Feels Safe at Home: Yes Safety Concerns: Feels Safe At This Time Physical Exam Psychiatric: Orientation: alert, oriented x 3 and + guarded (superficially cooperative ) Apperance: appropriately dressed (for clinical setting, wearing paper scrubs), + disheveled (hair appearing unkempt, stubble on face) and appeared stated age Eye Contact: + fair eye contact Motor Behavior: + psychomotor agitation (appearing restless, frequently moving legs or changing positions) Speech: normal rate/rhythm/volume of speech Affect: + depressed affect, + tearful affect and mood congruent with affect Mood: + depressed mood Thought Process: goal directed thought process and clear/coherent thought process Thought Content: + cognitive distortions (most consistent with history of substance abuse, denial, externalization) Suicidal Thoughts: denies suicidal plan and denies suicidal intent; + reports suicidal thoughts (reports passive SI, but primarily hopelessness and helplessness) Homicidal Thoughts: denies homicidal thoughts Hallucinations: + visual hallucinations (reports seeing water droplets leaking from the ceiling ); no auditory hallucinations Cognition: recent memory grossly intact, attention grossly i ntact and language grossly intact Estimated Intelligence: consistent with education level Insight: + poor insight Judgement: + poor judgement Vital Signs (Past 24 Hours): Last Vital Signs Temp 36.7 C 05/23/20 10:50 Pulse 79 05/23/20 10:50 Resp 18 05/23/20 10:50 BP 155/90 H 05/23/20 10:50 Pulse Ox 95 05/23/20 10:50 Review of Systems Constitutional: reports restlessness Cardiovascular: denied Respiratory: denied Gastrointestinal: denied Neurological: denied Psychiatric: denies symptoms other than stated above Total of at least 10 systems reviewed, pertinent positives as above and in HPI. Results & Data ([facility]) Medications Administered Clonidine HCl (Clonidine Hcl 0.1 Mg Tab) 0.1 mg PO BID [facility] Stop: 06/22/20 08:59 Last Admin: 05/23/20 09:01 Dose: 0.1 mg Documented by: [id number] Enoxaparin Sodium (Enoxaparin Inj 30 Mg/0.3 Ml Syr) 30 mg SQ QAM ARABELLA Stop: 06/22/20 08:59 Last Admin: 05/23/20 09:05 Dose: 30 mg Documented by: [id number] Gabapentin (Gabapentin 600 Mg Tab) 600 mg PO Q6H ARABELLA Stop: 05/23/20 16:01 Last Admin: 05/23/20 09:01 Dose: 600 mg Documented by: [id number] Lorazepam (Ativan) 1 mg in 2 mls @ 2 mls/min IV UD PRN; Protocol PRN Reason: EtOH Withdrawl AWSS Score 6,7 Stop: 06/22/20 06:09 Last Admin: 05/23/20 11:43 Dose: 2 mls/min Documented by: [id number] Lorazepam (Ativan) 2 mg in 4 mls @ 4 mls/min IV UD PRN; Protocol PRN Reason: EtOH Withdrawl AWSS Score 8,9 Stop: 06/22/20 06:09 Last Admin: 05/23/20 07:45 Dose: 4 mls/min Documented by: [id number] Lisinopril (Lisinopril 20 Mg Tab) 20 mg PO HS [facility] Stop: 06/22/20 06:09 Last Admin: 05/23/20 06:47 Dose: 20 mg Documented by: [id number] Pantoprazole Sodium (Pantoprazole 40 Mg Tab) 40 mg PO DAILY ARABELLA Stop: 06/22/20 08:59 Last Admin: 05/23/20 09:00 Dose: 40 mg Documented by: [id number] Sertraline HCl (Sertraline Hcl 50 Mg Tablet) 150 mg PO DAILY [facility] Stop: 06/22/20 08:59 Last Admin: 05/23/20 09:00 Dose: 150 mg Documented by: [id number] Coding Level of Care Code 73508 [facility] Care Lvl 2 Diagnoses Substance induced mood disorder F19.94 Alcohol withdrawal F10.239
[2020-05-23] MEDS: NICOTINE 14 MG/24 HR PATCH TD SCH (13:11)
--- NOTE | 2020-05-23 14:19 | Hospitalist Progress Note ---
Date of Service May 23, 2020 Assessment & Plan (1) Alcohol withdrawal: Alcohol Abuse Alcohol level 296 on admission Continue Alcohol withdrawal protocol with gabapentin and ativan Will monitor closely for DT Continue Thiamine, folic acid and MVI Will consider to add Librium Will benefit from inpatient alcohol rehab Suicidal Ideations Depression Plan to use his medication to overdose Psych on board Continue one to one observation Continue Zoloft 150mg Waiting for psych input Hypertension: BP elevated possible related to alcohol or non compliant with medication Continue lisinopril, clonidine Tobacco use Nicotine patch adding GERD (gastroesophageal reflux disease): Continue PPI DVT Prophylaxis On Lovenox CODE STATUS FULL CODE Admission and Anticipated Discharge Date Admission Date: May 23, 2020 Subjective Pt was seen and examined Lying in bed with no distress with 1 to 1 sitter Pt was in tears when asking him about his suicidal thought When I asked him about if he had a plan for his suicidal thought, he said that he would use his pills to overdose Pt said that he drank about 30 beers daily. last drink was yesterday He is interested to get help for alcohol rehab program Denies any hallucination, chest pain, palpitation and fever Physical Exam Physical Exam: General- No acute distress Head- atraumatic Eyes- PERRL, EOMI, ENT- oropharynx clear Neck- supple, no JVD Lungs- clear to auscultation Heart- regular rhythm; no murmur Abdomen- normal bowel sounds, soft, nontender Extremities- no calf tenderness Neuro- alert, oriented x 3; PERRL, EOMI; no facial palsy; no dysarthria Skin- warm & dry Results & Data Results & Data ([facility]) Vital Signs (Past 12 Hours) Vital Signs Temp Pulse Pulse Resp BP Pulse Ox 05/23/20 10:50 36.7 C 79 18 155/90 H 95 05/23/20 10:40 75 05/23/20 07:30 36.6 C 63 18 128/73 92 05/23/20 06:15 36.6 C 75 18 146/87 H 91 05/23/20 05:48 75 20 140/78 92 05/23/20 04:23 76 20 124/71 93 05/23/20 02:25 78 18 175/98 H 92
[2020-05-24] MEDS: GABAPENTIN 600 MG TAB PO SCH ×3 (00:44→15:10)
[2020-05-24] MEDS: MELATONIN 3 MG TAB PO PRN ×2 (01:35→22:17)
[2020-05-24] MEDS: LORazepam 1 MG/2 ML VIAL IV PRN ×2 (08:04→12:36)
[2020-05-24] MEDS: ENOXAPARIN INJ 30 MG/0.3 ML SYR SQ SCH (08:05)
[2020-05-24] MEDS: FOLIC ACID 1 MG TAB PO SCH (08:05)
[2020-05-24] MEDS: cloNIDine HCL 0.1 MG TAB PO SCH ×2 (08:05→22:17)
[2020-05-24] MEDS: SERTRALINE HCL 50 MG TABLET PO SCH (08:06)
[2020-05-24] MEDS: MULTIVITAMIN TAB PO SCH (08:06)
[2020-05-24] MEDS: NICOTINE 14 MG/24 HR PATCH TD SCH (08:07)
[2020-05-24] MEDS: THIAMINE HCL 100 MG TAB PO SCH (08:07)
[2020-05-24] MEDS: PANTOprazole 40 MG TAB PO SCH (08:07)
[2020-05-24 09:16] LABS: Basophils # (auto) 0.02 K/uL (0-0.2); Basophils % (auto) 0.5 %; Eosinophils # (auto) 0.12 K/uL (0-0.5); Eosinophils % (auto) 2.9 %; Hematocrit (blood only) 44.8 % (42-52); Immature Granulocytes # (auto) 0.01 K/uL (0.00-0.02); Immature Granulocytes % (auto) 0.2 %; Lymphocytes # (auto) 1.14 K/uL (1.2-3.4); Lymphocytes % (auto) 27.7 %; Mean Corpuscular Hemoglobin 33.1 pg (25-34); Mean Corpuscular Hgb Conc 35.7 g/dL (32-36); Mean Corpuscular Volume 92.6 fL (80-100); Mean Platelet Volume 10.1 fL (7.4-10.4); Monocytes # (auto) 0.42 K/uL (0.11-0.59); Monocytes % (auto) 10.2 %; Neutrophils % (auto) 58.5 %; Platelet Count 122 K/uL (130-400); RDW Coefficient of Variation 12.4 % (11.5-14.5); RDW Standard Deviation 41.9 fL (36.4-46.3); Red Blood Count 4.84 M/uL (4.7-6.1); White Blood Count 4.11 K/uL (4.8-10.8)
[2020-05-24 09:28] LABS: INR 1.1 (0.9-1.1); Prothrombin Time 11.9 Seconds (9.0-12.0)
[2020-05-24 09:51] LABS: Albumin Level 3.8 gm/dl (3.4-5.0); BUN Creatinine Ratio 8.6 (10-20); Creatinine Clr Calc Pharmacy 74.7 ml/min; Est GFR (African American) 84.7; Est GFR (Non-African American) 73.1; Potassium 3.2 mmol/L (3.5-5.1)
[2020-05-24 09:56] LABS: Albumin Globulin Ratio 1.1 (0.9-2); Bilirubin,Total 2.1 mg/dl (0.2-1); Globulin 3.5 gm/dl (2.5-4.0); Total Protein 7.3 gm/dl (6.4-8.2)
--- NOTE | 2020-05-24 19:23 | Psychiatric Progress Note ---
Date of Service May 24, 2020 Impression / Recommendations Impression RECOMMENDATIONS: 05/23 - Psychiatric consultation requested by hospitalist service to evaluate patient for depression and suicidality. - Management of alcohol withdrawal per primary team. Pt is being monitored routinely with AWSS protocol, on gabapentin taper. Case management consulted for assistance with discharge planning. - Pt admits to depressed mood and hopelessness, but denies active SI or plan/intent to harm himself or end his life. Primary diagnosis continues to be substance-induced mood disorder, as patient chronically uses alcohol which is likely the primary contributing factor to depressed mood. Pt is denying acute safety concerns and is not verbalizing any criteria that could be utilized to commit him for involuntarily psychiatric admission. Patient's needs would be best met in the inpatient D&A rehab setting, and primary recommendation is for discharge directly to inpatient rehab when medically cleared. This was reviewed with the patient, who is not yet sure that he is interested in rehab. - Pt has numerous outpatient supports who are willing to facilitate appropriate treatment options (psychiatric providers at [facility] and substance abuse test case developer through [facility]). Recommendation from outpatient providers is also for inpatient rehab. - Unfortunately, under mental health laws in [place] there is no ability to commit a patient involuntarily to D&A rehab. 05/24 -Motivational interviewing and supportive psychotherapy provided today attempting to motivate him towards effortful change to pursue abstinence from alcohol -He hopes to pursue intensive outpatient substance abuse treatment but remains disinclined for inpatient rehab -Discussed possibility of additional mood augmentation as well as pharmacotherapy to reduce cravings and risk for relapse such as Vivitrol injection or acamprosate which he can explore with outpatient providers -He continues to deny suicidal ideation and specifically denied any plan or intent for self-harm presently -We will continue to follow (1) Substance induced mood disorder: (2) Alcohol withdrawal: Risk Factors Assessment Do You Have Access To A Gun?: No (police previously removed firearm) Protective Factors Assessment Employed: No (stopped working in October) Interval History Chief Complaint " I just start drinking again". Review of Systems Notes Denies hallucinations Subjective Subjective Patient was seen & assessed and interval progress reviewed with treatment team. Patient was interviewed today in company of psychiatric liaison nurse, Darren Yadav. Patient continues to demonstrate symptoms of active withdrawal. He acknowledges sadness and some feelings of hopelessness in considering pattern and impact of alcohol abuse. He is able to identify potential opportunities for personal growth and change such as increasing scheduled time out of home, pursuit of re-employment and kindling relationships with, estranged family. He readily acknowledges the destructive force of alcohol abuse on his relationships and life trajectory. He continues to deny active suicidal ideation and denies any specific plan or intent for self-harm. He has ambivalent about considering inpatient psychiatric hospitalization which was discussed as potential effort to help restabilize him prior to discharge. He is opposed to retrial of inpatient rehab predicating decision on past failures. He endorses good rapport with outpatient providers at [facility] and indicates he would be willing to participate in intensive outpatient if possible. Physical Exam Psychiatric Orientation: alert and cooperative Apperance: + disheveled Eye Contact: + fair eye contact Motor Behavior: + tremor Speech: normal rate/rhythm/volume of speech Affect: + depressed affect Mood: + depressed mood Thought Process: goal directed thought process Thought Content: reality based without delusions and + hopelessness Suicidal Thoughts: denies suicidal thoughts, denies suicidal plan and denies suicidal intent Hallucinations: no auditory hallucinations and no visual hallucinations Cognition: language grossly intact Insight: + fair insight Judgement: + fair judgement Vital Signs (Past 24 Hours) Last Vital Signs Temp 36.6 C 05/24/20 15:00 Pulse 72 05/24/20 18:00 Resp 18 05/24/20 15:00 BP 152/88 H 05/24/20 15:00 Pulse Ox 96 05/24/20 15:00 Results & Data ([facility]) Laboratory Results Laboratory Results - last 24 hr 05/24/20 05/24/20 05/24/20 09:01 09:01 09:01 WBC 4.11 L RBC 4.84 Hgb 16.0 Hct 44.8 MCV 92.6 MCH 33.1 MCHC 35.7 RDW Std Deviation 41.9 RDW Coeff of Eloy 12.4 Plt Count 122 L MPV 10.1 Immature Gran % (Auto) 0.2 Neut % (Auto) 58.5 Lymph % (Auto) 27.7 [place] % (Auto) 10.2 Eos % (Auto) 2.9 Baso % (Auto) 0.5 Neut # (Auto) 2.40 Lymph # (Auto) 1.14 L [place] # (Auto) 0.42 Eos # (Auto) 0.12 Baso # (Auto) 0.02 Immature Gran # (Auto) 0.01 PT 11.9 INR 1.1 Sodium 133 L Potassium 3.2 L Chloride 102 Carbon Dioxide 21 Anion Gap 10.0 BUN 10 Creatinine 1.10 Est Cr Clr Drug Dosing 74.7 Est GFR ( Amer) 84.7 Est GFR (Non-Af Amer) 73.1 BUN/Creatinine Ratio 8.6 L Glucose 185 H Calcium 9.0 Total Bilirubin 2.1 H D AST 86 H ALT 98 H Alkaline Phosphatase 78 Total Protein 7.3 Albumin 3.8 Globulin 3.5 Albumin/Globulin Ratio 1.1 Current Inpatient Medications Current Inpatient Medications: Current Inpatient Medications Acetaminophen (Acetaminophen 325 Mg Tab) 325 mg PO Q6H PRN PRN Reason: Mild Pain Stop: 06/22/20 06:09 Clonidine HCl (Clonidine Hcl 0.1 Mg Tab) 0.1 mg PO BID [facility] Stop: 06/22/20 08:59 Last Admin: 05/24/20 08:05 Dose: 0.1 mg Documented by: Enoxaparin Sodium (Enoxaparin Inj 30 Mg/0.3 Ml Syr) [facility] Stop: 06/22/20 08:59 Last Admin: 05/24/20 08:05 Dose: 30 mg Documented by: Folic Acid (Folic Acid 1 Mg Tab) 1 mg PO QAM [facility] Stop: 06/23/20 08:59 Last Admin: 05/24/20 08:05 Dose: 1 mg Documented by: Gabapentin (Gabapentin 600 Mg Tab) 600 mg PO Q12H [facility] Stop: 05/25/20 18:01 Gabapentin (Gabapentin 600 Mg Tab) 600 mg PO Q24H [facility] Stop: 05/26/20 18:01 Lorazepam (Ativan) 1 mg in 2 mls @ 2 mls/min IV UD PRN; Protocol PRN Reason: EtOH Withdrawl AWSS Score 6,7 Stop: 06/22/20 06:09 Last Admin: 05/24/20 12:36 Dose: 2 mls/min Documented by: Lorazepam (Ativan) 2 mg in 4 mls @ 4 mls/min IV UD PRN; Protocol PRN Reason: EtOH Withdrawl AWSS Score 8,9 Stop: 06/22/20 06:09 Last Admin: 05/23/20 07:45 Dose: 4 mls/min Documented by: Lorazepam (Ativan) 3 mg in 6 mls @ 4 mls/min IV ONCE PRN; Protocol PRN Reason: EtOH Withdrawl AWSS Score >=10 Stop: 06/22/20 06:09 Promethazine HCl 12.5 mg/ (Sodium Chloride) 50.5 mls @ 202 mls/hr IV Q6H PRN PRN Reason: Nausea And Vomiting Stop: 06/22/20 06:09 Lisinopril (Lisinopril 20 Mg Tab) 20 mg PO HS ARABELLA Stop: 06/22/20 06:09 Last Admin: 05/23/20 21:09 Dose: 20 mg Documented by: Melatonin (Melatonin 3 Mg Tab) 3 mg PO HS PRN PRN Reason: Sleep Stop: 06/22/20 23:05 Last Admin: 05/24/20 01:35 Dose: 3 mg Documented by: Miscellaneous (Remove Nicoderm Patch) 1 ea N/A DAILY@0859 [facility] Stop: 06/23/20 08:58 Last Admin: 05/24/20 08:04 Dose: 1 ea Documented by: Multivitamins (Multivitamin Tab) [facility] Stop: 06/23/20 08:59 Last Admin: 05/24/20 08:06 Dose: 1 tab Documented by: Nicotine (Nicotine 14 Mg/24 Hr Patch) 14 mg TD QAM [facility] Stop: 06/22/20 12:14 Last Admin: 05/24/20 08:07 Dose: 14 mg Documented by: Oxycodone HCl (Oxycodone Hcl Ir 5 Mg Tab (Immediate Release)) 5 mg PO Q4H PRN PRN Reason: Pain Stop: 06/06/20 06:09 Pantoprazole Sodium (Pantoprazole 40 Mg Tab) 40 mg PO DAILY [facility] Stop: 06/22/20 08:59 Last Admin: 05/24/20 08:07 Dose: 40 mg Documented by: Sertraline HCl (Sertraline Hcl 50 Mg Tablet) 150 mg PO DAILY [facility] Stop: 06/22/20 08:59 Last Admin: 05/24/20 08:06 Dose: 150 mg Documented by: Thiamine HCl (Thiamine Hcl 100 Mg Tab) 100 mg PO QAM [facility] Stop: 06/23/20 08:59 Last Admin: 05/24/20 08:07 Dose: 100 mg Documented by: Mental Health & Subst Abuse Tx Therapist Name of Therapist: None - stopped going recently [employer] Name of Cit[employer]orer: None
[2020-05-24] MEDS: LORazepam 2 MG/4 ML VIAL IV PRN (19:53)
--- NOTE | 2020-05-24 20:26 | Hospitalist Progress Note ---
Date of Service May 24, 2020 Assessment & Plan (1) Alcohol withdrawal: Alcohol Abuse Alcohol level 296 on admission Continue Alcohol withdrawal protocol with gabapentin and ativan Will monitor closely for DT Continue Thiamine, folic acid and MVI Will consider to add Librium Will benefit from inpatient alcohol rehab, but pt is interested on outpatient alcohol rehab Suicidal Ideations Depression Plan to use his medication to overdose Psych on board No indication for inpatient psych treatment as per psych team Continue Zoloft 150mg Hypertension: BP elevated possible related to alcohol or non compliant with medication Continue lisinopril, clonidine Tobacco use Nicotine patch adding GERD (gastroesophageal reflux disease): Continue PPI DVT Prophylaxis On Lovenox CODE STATUS FULL CODE Admission and Anticipated Discharge Date Admission Date: May 23, 2020 Subjective Pt was seen and examined Sitting in bed with no distress Pt said that he feels a little better He said that he is planning to get outpatient alcohol rehab treatment He said that he had inpatient alcohol rehab in the past and doesn't help Denies any chest pain, palpitation, dizziness, hallucination and SOB Physical Exam Physical Exam: General- No acute distress Head- atraumatic Eyes- PERRL, EOMI, No nustagmus , ENT- oropharynx clear Neck- supple, no JVD Lungs- clear to auscultation Heart- regular rhythm; no murmur Abdomen- normal bowel sounds, soft, nontender Extremities- no calf tenderness Neuro- alert, oriented x 3; PERRL, EOMI; no facial palsy; no dysarthria, +tremors Skin- warm & dry Results & Data Results & Data ([facility]) Vital Signs (Past 12 Hours) Vital Signs Temp Pulse Pulse Resp BP Pulse Ox 05/24/20 19:51 37.1 C 71 20 161/85 H 96 05/24/20 18:00 72 05/24/20 15:00 36.6 C 76 18 152/88 H 96 05/24/20 08:47 75
[2020-05-24] MEDS: lisinopriL 20 MG TAB PO SCH (22:17)
[2020-05-25] MEDS: GABAPENTIN 600 MG TAB PO SCH ×2 (05:41→16:54)
[2020-05-25] MEDS: cloNIDine HCL 0.1 MG TAB PO SCH ×2 (08:09→20:30)
[2020-05-25] MEDS: SERTRALINE HCL 50 MG TABLET PO SCH (08:11)
[2020-05-25] MEDS: THIAMINE HCL 100 MG TAB PO SCH (08:12)
[2020-05-25] MEDS: MULTIVITAMIN TAB PO SCH (08:12)
[2020-05-25] MEDS: PANTOprazole 40 MG TAB PO SCH (08:13)
[2020-05-25] MEDS: NICOTINE 14 MG/24 HR PATCH TD SCH (08:13)
[2020-05-25] MEDS: FOLIC ACID 1 MG TAB PO SCH (08:13)
[2020-05-25] MEDS: ENOXAPARIN INJ 30 MG/0.3 ML SYR SQ SCH (08:14)
[2020-05-25 09:52] LABS: Albumin Level 3.8 gm/dl (3.4-5.0); BUN Creatinine Ratio 7.8 (10-20); Calcium 8.7 mg/dl (8.5-10.1); Creatinine Clr Calc Pharmacy 83.8 ml/min; Est GFR (African American) 97.4; Est GFR (Non-African American) 84.1; Potassium 3.5 mmol/L (3.5-5.1)
[2020-05-25 09:58] LABS: Albumin Globulin Ratio 0.9 (0.9-2); Bilirubin,Total 1.5 mg/dl (0.2-1); Globulin 4.1 gm/dl (2.5-4.0); Total Protein 7.9 gm/dl (6.4-8.2)
--- NOTE | 2020-05-25 18:15 | Hospitalist Progress Note ---
Date of Service May 25, 2020 Assessment & Plan (1) Alcohol withdrawal: Alcohol Abuse Alcohol level 296 on admission Continue Alcohol withdrawal protocol with gabapentin and ativan Will monitor closely for DT Continue Thiamine, folic acid and MVI Will taper Librium to daily in am Will benefit from inpatient alcohol rehab, but pt is interested on outpatient alcohol rehab Suicidal Ideations Depression Plan to use his medication to overdose Psych on board No indication for inpatient psych treatment as per psych team Continue Zoloft 150mg Hypertension: BP elevated possible related to alcohol or non compliant with medication Continue lisinopril, clonidine Tobacco use Nicotine patch adding GERD (gastroesophageal reflux disease): Continue PPI DVT Prophylaxis On Lovenox CODE STATUS FULL CODE Admission and Anticipated Discharge Date Admission Date: May 23, 2020 Subjective Pt was seen and examined Lying in bed with no distress Pt said that he feels fine Denies any hallucination and suicidal ideation Physical Exam Physical Exam: General- No acute distress Head- atraumatic Eyes- PERRL, EOMI, No nustagmus , ENT- oropharynx clear Neck- supple, no JVD Lungs- clear to auscultation Heart- regular rhythm; no murmur Abdomen- normal bowel sounds, soft, nontender Extremities- no calf tenderness Neuro- alert, oriented x 3; PERRL, EOMI; no facial palsy; no dysarthria, +tremors Skin- warm & dry Results & Data Results & Data ([facility]) Vital Signs (Past 12 Hours) Vital Signs Temp Pulse Pulse Resp BP BP Pulse Ox 05/25/20 16:05 66 05/25/20 15:14 36.5 C 72 18 136/82 97 05/25/20 11:47 36.6 C 60 18 130/80 97 05/25/20 09:10 74 05/25/20 07:00 36.7 C 68 18 139/91 96
[2020-05-25] MEDS: lisinopriL 20 MG TAB PO SCH (20:30)
[2020-05-25] MEDS ORDERED: LORazepam 0.5 MG TAB PO PRN (20:43)
[2020-05-26] MEDS: cloNIDine HCL 0.1 MG TAB PO SCH (08:45)
[2020-05-26] MEDS: THIAMINE HCL 100 MG TAB PO SCH (08:46)
[2020-05-26] MEDS: SERTRALINE HCL 50 MG TABLET PO SCH (08:46)
[2020-05-26] MEDS: ENOXAPARIN INJ 30 MG/0.3 ML SYR SQ SCH (08:47)
[2020-05-26] MEDS: MULTIVITAMIN TAB PO SCH (08:47)
[2020-05-26] MEDS: FOLIC ACID 1 MG TAB PO SCH (08:47)
[2020-05-26] MEDS: PANTOprazole 40 MG TAB PO SCH (08:47)
[2020-05-26] MEDS: NICOTINE 14 MG/24 HR PATCH TD SCH (08:48)
[2020-05-26 08:54] LABS: Creatinine Clr Calc Pharmacy 89.3 ml/min; Est GFR (African American) 105.1; Est GFR (Non-African American) 90.7
--- NOTE | 2020-05-26 10:20 | Hospitalist Progress Note ---
Date of Service May 26, 2020 Assessment & Plan (1) Alcohol withdrawal: Alcohol Abuse Alcohol level 296 on admission Continue Alcohol withdrawal protocol with gabapentin and ativan No sign of alcohol withdrawal Continue Thiamine, folic acid and MVI Will d/c libruim today Will benefit from inpatient alcohol rehab, but pt is interested on outpatient alcohol rehab Suicidal Ideations Depression Plan to use his medication to overdose Psych on board No indication for inpatient psych treatment as per psych team Continue Zoloft 150mg Need outpatient follow up with psych Hypertension: BP elevated possible related to alcohol or non compliant with medication Continue lisinopril, clonidine Tobacco use Nicotine patch adding GERD (gastroesophageal reflux disease): Continue PPI DVT Prophylaxis On Lovenox CODE STATUS FULL CODE Disposition Will discharge home today Admission and Anticipated Discharge Date Admission Date: May 23, 2020 Subjective Pt was seen and examined Lying in bed with no distress Pt said that he feels much better He is not interested in inpatient alcohol rehab, but willing to do inpatient rehab Denies any chest pain, palpitation, hallucination, suicidal, dizziness and SOB Physical Exam Physical Exam: General- No acute distress Head- atraumatic Eyes- PERRL, EOMI, No nustagmus ENT- oropharynx clear Neck- supple, no JVD Lungs- clear to auscultation Heart- regular rhythm; no murmur Abdomen- normal bowel sounds, soft, nontender Extremities- no calf tenderness Neuro- alert, oriented x 3; PERRL, EOMI; no facial palsy; no dysarthria, +tremors Skin- warm & dry Results & Data Results & Data ([facility]) Vital Signs (Past 12 Hours) Vital Signs Temp Pulse Pulse Resp BP BP Pulse Ox 05/26/20 07:20 36.7 C 60 18 151/91 H 96 05/26/20 07:00 75 05/26/20 04:14 36.4 C L 59 L 18 135/83 96 05/26/20 01:50 74 05/25/20 23:37 36.9 C 64 18 119/67 94
[2020-05-26 11:13] VITALS: BP 134/89; PULSE 62; TEMP 97.9; O2SAT 97
[2020-05-26] MEDS ORDERED: GABAPENTIN 600 MG TAB PO SCH (18:00)
[2020-05-27] MEDS ORDERED: GABAPENTIN 600 MG TAB PO SCH (13:15)
--- NOTE | 2020-05-28 23:14 | Discharge Summary ---
Date of Service May 26, 2020 Admission HPI Per Admitting Provider History obtained from patient and records. Medical history significant for hypertension, mood disorder, GERD, ongoing tobacco/alcohol abuse. Last confinement last month for alcohol withdrawal. Patient left hospital AGAINST MEDICAL ADVICE as per records. Patient went back to drinking soon after returning home. On and off suicidal ideations in the last few weeks. Patient seen at the ER 5 days ago for alcohol intoxication and depression. Patient later discharged home after denying suicidal ideation. Patient returned to the ER last night with recurrent suicidal ideations at home. Patient denies chest pain, S OB. Usual achy abdominal discomfort. No constipation, no diarrhea. Poor appetite. Medical History as above Surgical History : None Family History : Alcoholism, heart disease Personal/social history: 1/4 pack daily, alcohol abuse, currently unemployed Admission Exam Per Admitting Provider GENERAL: Flat affect, tremulous, no respiratory distress SKIN: Normal color, warm HEENT: [place] palpebral conjunctivae, no ptosis, dry buccal mucosa NECK : Supple, no tenderness CHEST : CTA, no tenderness HEART : RRR, no obvious murmurs ABDOMEN: Some distention, nontender EXTREMITIES : No LE swelling/tenderness, no other conspicuous deformities noted NEUROLOGIC : Coherent, no facial asymmetry, tremulous, no other gross focality Principal Diagnosis Alcohol withdrawal: Alcohol Abuse Depression Hypertension: Tobacco use Discharge Exam General- No acute distress Head- atraumatic Eyes- PERRL, EOMI, No nustagmus ENT- oropharynx clear Neck- supple, no JVD Lungs- clear to auscultation Heart- regular rhythm; no murmur Abdomen- normal bowel sounds, soft, nontender Extremities- no calf tenderness Neuro- alert, oriented x 3; PERRL, EOMI; no facial palsy; no dysarthria, +tremors Skin- warm & dry Discharge Data Allergies Allergy/AdvReac Type Severity Reaction Status Date / Time No Known Allergies Allergy Verified 05/18/20 23:47 Consultations 05/23/20 02:35 ED Decision to Admit Stat 05/23/20 06:10 Consult Case Management - Discharge Planning Routine Consult Psychiatry Routine 05/23/20 06:35 Consult Behavioral Health Liaison Routine Hospital Course (1) Alcohol withdrawal: Alcohol Abuse Alcohol level 296 on admission Continue Alcohol withdrawal protocol with gabapentin and ativan No sign of alcohol withdrawal Continue Thiamine, folic acid and MVI Will d/c libruim today Will benefit from inpatient alcohol rehab, but pt is interested on outpatient alcohol rehab Suicidal Ideations Depression Plan to use his medication to overdose Psych on board No indication for inpatient psych treatment as per psych team Continue Zoloft 150mg Need outpatient follow up with psych Hypertension: BP elevated possible related to alcohol or non compliant with medication Continue lisinopril, clonidine Tobacco use Nicotine patch adding GERD (gastroesophageal reflux disease): Continue PPI DVT Prophylaxis On Lovenox CODE STATUS FULL CODE Disposition Will discharge home today Total Time Total Time Spent Total Time Spent (In Minutes): 35 minutes Total Time Includes: Examination of the Patient, Discharge Planning, Medication Reconciliation, Communication With Other Providers and Other Discharge Plan Discharge Items Patient Disposition: Home - Self-Care Reason For Visit: ETOH WITHDRAWAL Discharge Diagnosis: Alcohol withdrawal: Alcohol Abuse Depression Hypertension: Tobacco use Activity: Resume your previous activity Non-emergency contact: Primary Care Provider and Psychiatrist Call non-emergency contact if: you have any medication questions Follow-up/Referrals: [facility],Medicine [Primary Care Provider] - Diet: Heart Healthy Addtl Attending Provider Instructions: Follow with your primary care provider within 1 week (Please call for the appointment) Follow up with psychiatry outpatient Counseling on alcohol cessation Advised to go to inpatient alcohol rehab, but patient interested on outpatient alcohol rehab Counseling on smoking cessation Pending Studies at Discharge: No Stand-Alone Forms: [facility], Smoking Cessation, Suicide Prevention Resources Medications and DC Order Prescriptions: New thiamine HCl (vitamin B1) [Vitamin B-1] 100 mg Tablet 100 mg PO QAM 30 Days Qty: 30 RF: 0 folic acid 1 mg Tablet 1 mg PO QAM 30 Days Qty: 30 RF: 0 Continued lisinopril 20 mg Tablet 20 mg PO HS RF: 0 omeprazole 20 mg Tablet,Delayed Release (Dr/Ec) 40 mg PO DAILY RF: 0 sertraline 100 mg Tablet 150 mg PO DAILY RF: 0 clonidine HCl 0.1 mg tablet 0.1 mg PO BID Qty: 0 RF: 0 Discharge Orders: Discharge Order (Routine); Ordered 05/26/20 Ordered By: Yoana Penn Admission Data Admit Date/Time: 05/23/20 03:29 Attending Provider: Yoana Penn Admit Provider: Chi Roland [facility] Other Providers: Reinaldo Plaza Other Interventions: Discharge Summary Assessment (RN) Last Done: 05/26/20 13:23
== END 2020-05-26 13:57 | disposition home or self-care (01) | DRG 897 ==
LOC: ED 20:10 → 2W 05-23 03:29

== ENCOUNTER 2020-06-02 14:19 | Inpatient (IN) ==
[2020-06-02] MEDS ORDERED: SODIUM CHLORIDE 0.9% 1000ML 1,000 ML IV SCH (14:45)
--- NOTE | 2020-06-02 14:46 | Emergency Department Note ---
History of Present Illness General Chief complaint: Alcohol Intoxication Time Seen by Provider: 06/02/20 14:29 Source: patient History of Present Illness Provider complaint: Alcohol dependence Onset (ago): year(s) Location: head Severity: severe Pain Consistency: + constant Relieved By: + none Associated symptoms: no chest pain, no cough, no fever/chills, no headaches, no nausea/vomiting and no shortness of breath This is a 59-year-old male [facility] by [facility] to be hospitalized for alcohol dependence/withdrawal. The patient states that he has been abusing alcohol since he was 53 years old. He states that certain things have happened to him over the past 6 years and he has been dependent on alcohol during that time. He was recently discharged from the hospital for alcohol withdrawal and outpatient care but the patient did not go to alcohol detox and started drinking right away. He never followed up with psychiatry. He states that he called [facility] today and told him that he wants to stop drinking and that he is very depressed about his life and they sent him to the emergency department. The patient denies suicidal ideation. He states that he is just very depressed and he has not taken his depression medications over the past 2 days. He has been drinking a lot of alcohol and had about 15 beers prior to arrival. His last drink was just prior to arrival here. He denies any physical complaints other than his chronic diarrhea which he attributes to alcohol intake. He denies fever, cough or cold symptoms, chest pain, shortness of breath, abdominal pain, headache or vomiting. He denies any drug abuse. He denies any injury or fall. He denies any prior history of delirium tremens or withdrawal seizures. Home Medications Home Medications Medication Instructions Recorded Confirmed Type lisinopril 20 mg PO HS 03/16/20 06/02/20 History omeprazole 40 mg PO DAILY 03/16/20 06/02/20 History sertraline 150 mg PO DAILY 03/16/20 06/02/20 History clonidine HCl 0.1 mg PO BID #0 tab 03/19/20 06/02/20 Rx folic acid 1 mg PO QAM 30 Days #30 tab 05/26/20 06/02/20 Rx thiamine HCl (vitamin B1) [Vitamin 100 mg PO QAM 30 Days #30 tab 05/26/20 06/02/20 Rx B-1] cholecalciferol (vitamin D3) 0 mcg PO DAILY 06/02/20 06/02/20 History Allergies Allergy/AdvReac Type Severity Reaction Status Date / Time No Known Allergies Allergy Verified 06/02/20 18:35 Past Med/Surg History Medical History Alcohol dependence Depression GERD (gastroesophageal reflux disease) Smoker Suicidal thoughts Surgical History No history of previous surgery Family History Father , age 70 from [place] Coronary heart disease Social History Smoking Status: Current every day smoker Tobacco Type: Cigarettes Second Hand Exposure: Yes; Hx Alcohol Use: Yes Alcohol type: beer Hx Substance Use: No Preferred Language: Welsh Communication Ability: Effective [place] Required: No Beliefs That Will Affect Care: Mormon marital status: Current Living Situation: Alone Current Living Situation Comment: pt states lives in large farmhouse where two brothers unrelated to him live Feels Safe at Home: Yes Review of Systems See HPI for pertinent positives & negatives. and A total of 10 systems reviewed and were otherwise negative Physical Exam Vital Signs Vital Signs - 24 hr 06/02/20 14:36 06/02/20 16:00 06/02/20 17:02 Temperature 37.2 C Temperature Source Oral Pulse Rate 81 85 77 Pulse Rate from SpO2 Sensor 83 77 Respiratory Rate 18 18 20 Respiratory Effort / Characteristics Non-Labored Spontaneous Respiratory Depth Normal Respiratory Pattern Regular Blood Pressure 174/97 H 140/88 165/96 H Blood Pressure Mean 122 105 128 Blood Pressure Position Lying Pulse Oximetry 94 94 94 Oxygen Delivery Method Room Air Sepsis Recent Fever Within 48 Hours No Sepsis New/Unexplained Change in Mental Status N/A Sepsis Action Taken by Nursing No Action Required 06/02/20 17:30 06/02/20 18:00 06/02/20 18:43 Temperature 36.8 C Temperature Source Pulse Rate 79 86 94 H Pulse Rate from SpO2 Sensor 95 H Respiratory Rate 22 22 22 Respiratory Effort / Characteristics Respiratory Depth Respiratory Pattern Blood Pressure 161/79 H 160/86 H 187/118 H Blood Pressure Mean 95 92 150 Blood Pressure Position Pulse Oximetry 96 Oxygen Delivery Method Sepsis Recent Fever Within 48 Hours Sepsis New/Unexplained Change in Mental Status Sepsis Action Taken by Nursing 06/02/20 19:00 06/02/20 19:30 06/02/20 20:00 Temperature Temperature Source Pulse Rate 84 82 85 Pulse Rate from SpO2 Sensor Respiratory Rate 18 18 18 Respiratory Effort / Characteristics Respiratory Depth Respiratory Pattern Blood Pressure 175/92 H 134/75 137/75 Blood Pressure Mean 112 91 80 Blood Pressure Position Pulse Oximetry Oxygen Delivery Method Sepsis Recent Fever Within 48 Hours Sepsis New/Unexplained Change in Mental Status Sepsis Action Taken by Nursing Constitutional: Vital signs reviewed. Eyes: Pupils are equal round reactive to light. Conjunctiva are noninjected. ENT: Pharynx is clear without erythema or exudate. Mucous membranes are moist. Neck supple without meningeal signs. Respiratory: Clear to auscultation bilaterally. Breath sounds are equal bilaterally. Cardiovascular: Regular rate and rhythm. No rubs or gallops. GI: Soft, nondistended and nontender. Bowel sounds are present. Musculoskeletal: No peripheral edema. No lower extremity tenderness. Integumentary: No cyanosis. or jaundice. Neurological: The patient is awake and alert. No focal deficits. No slurred speech. Psychiatric: Depressed affect. Course Administered Medications Sodium Chloride (Nss 1000ml) 1,000 mls @ 125 mls/hr IV .Q8H ARABELLA Stop: 07/02/20 14:44 Last Admin: 06/02/20 15:05 Dose: 125 mls/hr Documented by: [id number] Discontinued Medications Chlordiazepoxide HCl (Chlordiazepoxide Hcl 25 Mg Cap) 25 mg PO NOW ONE Stop: 06/02/20 18:46 Last Admin: 06/02/20 18:55 Dose: 25 mg Documented by: [id number] Lorazepam (Ativan) 1 mg in 2 mls @ 2 mls/min IV NOW STA Stop: 06/02/20 18:46 Last Admin: 06/02/20 18:55 Dose: 2 mls/min Documented by: [id number] Medical Decision Making Differential Diagnosis Alcohol dependence, alcohol withdrawal, mood disorder, suicidal ideation, metabolic derangement Medical Records Attestation: I reviewed the patient's medical records. The patient was admitted to the hospital earlier this month for depression and alcohol withdrawal. He was discharged on the for outpatient psychiatric care and alcohol rehabilitation. Home Medications Current Medication List: was personally reviewed by me Laboratory Data Attestation: I reviewed the patient's lab results. Result diagrams: 06/02/20 14:54 06/02/20 14:54 Lab Results 06/02/20 06/02/20 06/02/20 Range/Units 14:54 14:54 14:54 WBC 4.68 L (4.8-10.8) K/uL RBC 5.17 (4.7-6.1) M/uL Hgb 17.6 (14.0-18.0) g/dL Hct 48.8 (42-52) % MCV 94.4 (80-100) fL MCH 34.0 (25-34) pg MCHC 36.1 H (32-36) g/dL RDW Std Deviation 43.2 (36.4-46.3) fL RDW Coeff of Eloy 12.5 (11.5-14.5) % Plt Count 217 (130-400) K/uL MPV 9.8 (7.4-10.4) fL Immature Gran % (Auto) 0.2 % Neut % (Auto) 41.7 % Lymph % (Auto) 42.1 % [place] % (Auto) 13.7 % Eos % (Auto) 1.7 % Baso % (Auto) 0.6 % Neut # (Auto) 1.95 (1.4-6.5) K/uL Lymph # (Auto) 1.97 (1.2-3.4) K/uL [place] # (Auto) 0.64 H (0.11-0.59) K/uL Eos # (Auto) 0.08 (0-0.5) K/uL Baso # (Auto) 0.03 (0-0.2) K/uL Immature Gran # (Auto) 0.01 (0.00-0.02) K/uL Sodium 136 (136-145) mmol/L Potassium 3.5 (3.5-5.1) mmol/L Chloride 101 (98-107) mmol/L Carbon Dioxide 26 (21-32) mmol/L Anion Gap 9.0 (3-11) BUN 9 (7-18) mg/dl Creatinine 0.97 (0.6-1.4) mg/dl Est Cr Clr Drug Dosing 92.3 ml/min Est GFR ( Amer) 98.6 Est GFR (Non-Af Amer) 85.1 BUN/Creatinine Ratio 9.4 L (10-20) Glucose 96 (70-99) mg/dl Calcium 8.7 (8.5-10.1) mg/dl Total Bilirubin 0.6 (0.2-1) mg/dl AST 48 H (15-37) U/L ALT 94 H (12-78) U/L Alkaline Phosphatase 82 (45-117) U/L Total Protein 8.3 H (6.4-8.2) gm/dl Albumin 4.3 (3.4-5.0) gm/dl Globulin 4.0 (2.5-4.0) gm/dl Albumin/Globulin Ratio 1.1 (0.9-2) TSH 1.650 (0.300-4.500) uIu/ml Urine Color Urine Appearance (Clear) Urine pH (4.5-7.5) Ur Specific [place] (1.000-1.030) Urine Protein (Negative) Urine Glucose (UA) (Negative) Urine Ketones (Negative) Urine Blood (Negative) Urine Nitrite (Negative) Urine Bilirubin (Negative) Urine Urobilinogen (Negative) Ur Leukocyte Esterase (Negative) Salicylates 1.8 L (2.8-20) mg/dl Urine Opiates Screen (Neg) Ur Methadone, Qual (Neg) Acetaminophen < 2 L (10-30) ug/ml Urine Barbiturates (Neg) Ur Phencyclidine (PCP) (Neg) U Amphetamin/Meth Scrn (Neg) MDMA (Ecstasy) Screen (Neg) U Benzodiazepines Scrn (Neg) Ur Cocaine Metabolite (Neg) U Marijuana (THC) Screen (Neg) Ethyl Alcohol mg/dL (0-3) mg/dl 06/02/20 06/02/20 06/02/20 Range/Units 14:54 15:59 15:59 WBC (4.8-10.8) K/uL RBC (4.7-6.1) M/uL Hgb (14.0-18.0) g/dL Hct (42-52) % MCV (80-100) fL MCH (25-34) pg MCHC (32-36) g/dL RDW Std Deviation (36.4-46.3) fL RDW Coeff of Eloy (11.5-14.5) % Plt Count (130-400) K/uL MPV (7.4-10.4) fL Immature Gran % (Auto) % Neut % (Auto) % Lymph % (Auto) % [place] % (Auto) % Eos % (Auto) % Baso % (Auto) % Neut # (Auto) (1.4-6.5) K/uL Lymph # (Auto) (1.2-3.4) K/uL [place] # (Auto) (0.11-0.59) K/uL Eos # (Auto) (0-0.5) K/uL Baso # (Auto) (0-0.2) K/uL Immature Gran # (Auto) (0.00-0.02) K/uL Sodium (136-145) mmol/L Potassium (3.5-5.1) mmol/L Chloride (98-107) mmol/L Carbon Dioxide (21-32) mmol/L Anion Gap (3-11) BUN (7-18) mg/dl Creatinine (0.6-1.4) mg/dl Est Cr Clr Drug Dosing ml/min Est GFR ( Amer) Est GFR (Non-Af Amer) BUN/Creatinine Ratio (10-20) Glucose (70-99) mg/dl Calcium (8.5-10.1) mg/dl Total Bilirubin (0.2-1) mg/dl AST (15-37) U/L ALT (12-78) U/L Alkaline Phosphatase (45-117) U/L Total Protein (6.4-8.2) gm/dl Albumin (3.4-5.0) gm/dl Globulin (2.5-4.0) gm/dl Albumin/Globulin Ratio (0.9-2) TSH (0.300-4.500) uIu/ml Urine Color Yellow Urine Appearance Clear (Clear) Urine pH 5.5 (4.5-7.5) Ur Specific [place] 1.006 (1.000-1.030) Urine Protein Negative (Negative) Urine Glucose (UA) Negative (Negative) Urine Ketones Negative (Negative) Urine Blood Negative (Negative) Urine Nitrite Negative (Negative) Urine Bilirubin Negative (Negative) Urine Urobilinogen Negative (Negative) Ur Leukocyte Esterase Negative (Negative) Salicylates (2.8-20) mg/dl Urine Opiates Screen Neg (Neg) Ur Methadone, Qual Neg (Neg) Acetaminophen (10-30) ug/ml Urine Barbiturates Neg (Neg) Ur Phencyclidine (PCP) Neg (Neg) U Amphetamin/Meth Scrn Neg (Neg) MDMA (Ecstasy) Screen Neg (Neg) U Benzodiazepines Scrn Neg (Neg) Ur Cocaine Metabolite Neg (Neg) U Marijuana (THC) Screen Neg (Neg) Ethyl Alcohol mg/dL 235.0 H (0-3) mg/dl Blood Pressure Blood Pressure Findings: Elevated blood pressure Blood Pressure Disposition: Referred to patients primary care provider JAVIER Narrative I did evaluate the patient as noted above. The patient is presenting for alcohol detox and mental health evaluation. He states he is not suicidal but he is very depressed and wants to get his life in order. He did have 10-15 drinks today and appears slightly intoxicated. IV access was established. He was given normal saline IV. I did place an order for continuous cardiac monitoring. The monitor showed normal sinus rhythm at a rate of 86 bpm. I did order a urine analysis. There is no evidence of infection. I did order and review the patient's blood work as noted in the electronic medical record. His white count is 4.6 which is consistent with his prior visits. He has normal electrolytes. He is not thrombocytopenic or anemic. Serum alcohol is 235. While in the emergency department the patient became more agitated and started having withdra wal symptoms with hypertension and tremors. He was given Ativan 1 mg IV and Librium 25 mg p.o. At 8 PM I did have the mental health community case manager evaluate the patient. The patient denied suicidality but wanted to be admitted for medical detox and then sent to a psychiatric facility after that. He states that this time would be different and that he would follow-up instead of start drinking again. He was told that the decision would be up to the hospitalist whether he would be hospitalized for detox. I did speak to the hospitalist who is agreeable with hospitalization. Impression & Plan Alcohol withdrawal, Alcohol abuse, Mood disorder Discharge Plan Visit Data Chief Complaint: Alcohol Intoxication ED Provider: Kelvin Robles Discharge Problem: Alcohol withdrawal, Alcohol abuse, Mood disorder Forms Stand Alone Forms: My [facility] Prescriptions Prescriptions: No Action lisinopril 20 mg Tablet 20 mg PO HS RF: 0 omeprazole 20 mg Tablet,Delayed Release (Dr/Ec) 40 mg PO DAILY RF: 0 sertraline 100 mg Tablet 150 mg PO DAILY RF: 0 clonidine HCl 0.1 mg tablet 0.1 mg PO BID Qty: 0 RF: 0 thiamine HCl (vitamin B1) [Vitamin B-1] 100 mg Tablet 100 mg PO QAM 30 Days Qty: 30 RF: 0 folic acid 1 mg Tablet 1 mg PO QAM 30 Days Qty: 30 RF: 0 cholecalciferol (vitamin D3) 10 mcg (400 unit) Tablet,Chewable 0 mcg PO DAILY RF: 0 Referrals Referrals: [facility],Medicine [Primary Care Provider] -
[2020-06-02 15:12] LABS: Basophils # (auto) 0.03 K/uL (0-0.2); Basophils % (auto) 0.6 %; Eosinophils # (auto) 0.08 K/uL (0-0.5); Eosinophils % (auto) 1.7 %; Hematocrit (blood only) 48.8 % (42-52); Hemoglobin 17.6 g/dL (14.0-18.0); Immature Granulocytes # (auto) 0.01 K/uL (0.00-0.02); Immature Granulocytes % (auto) 0.2 %; Lymphocytes # (auto) 1.97 K/uL (1.2-3.4); Lymphocytes % (auto) 42.1 %; Mean Corpuscular Hgb Conc 36.1 g/dL (32-36); Mean Corpuscular Volume 94.4 fL (80-100); Mean Platelet Volume 9.8 fL (7.4-10.4); Monocytes # (auto) 0.64 K/uL (0.11-0.59); Monocytes % (auto) 13.7 %; Neutrophils # (auto) 1.95 K/uL (1.4-6.5); Neutrophils % (auto) 41.7 %; Platelet Count 217 K/uL (130-400); RDW Coefficient of Variation 12.5 % (11.5-14.5); RDW Standard Deviation 43.2 fL (36.4-46.3); Red Blood Count 5.17 M/uL (4.7-6.1); White Blood Count 4.68 K/uL (4.8-10.8)
[2020-06-02 15:29] LABS: Albumin Level 4.3 gm/dl (3.4-5.0); BUN Creatinine Ratio 9.4 (10-20); Calcium 8.7 mg/dl (8.5-10.1); Creatinine Clr Calc Pharmacy 92.3 ml/min; Est GFR (African American) 98.6; Est GFR (Non-African American) 85.1; Potassium 3.5 mmol/L (3.5-5.1)
[2020-06-02 15:39] LABS: Albumin Globulin Ratio 1.1 (0.9-2); Bilirubin,Total 0.6 mg/dl (0.2-1); Thyroid Stimulating Hormone 1.65 uIu/ml (0.300-4.500); Total Protein 8.3 gm/dl (6.4-8.2)
[2020-06-02 15:40] LABS: Acetaminophen < 2 ug/ml (10-30); Salicylate 1.8 mg/dl (2.8-20)
[2020-06-02 16:11] LABS: Appearance Urine Clear (Clear); Bilirubin Urine Negative (Negative); Blood Urine Negative (Negative); Color Urine Yellow; Glucose Urine UA Negative (Negative); Ketones Urine Negative (Negative); Leukocyte Esterase Urine Negative (Negative); Nitrite Urine Negative (Negative); Protein Urine Negative (Negative); Specific Gravity Urine 1.006 (1.000-1.030); Urobilinogen Urine Negative (Negative); pH Urine 5.5 (4.5-7.5)
[2020-06-02 16:36] LABS: Amphetamines+Metham, Urine Neg (Neg); Barbiturates, Urine Neg (Neg); Benzodiazepine, Urine Neg (Neg); Cocaine, Urine Neg (Neg); MDMA (Ecstacy), Urine Neg (Neg); Methadone, Urine Neg (Neg); Opiate, Urine Neg (Neg); Phencyclidine, Urine Neg (Neg)
[2020-06-02] MEDS ORDERED: LORazepam 1 MG/2 ML VIAL IV STA (18:45)
[2020-06-02] MEDS ORDERED: chlordiazePOXIDE HCl 25 MG CAP PO ONE (18:45)
[2020-06-02] MEDS ORDERED: LORazepam 2 MG/4 ML VIAL IV PRN (22:34)
[2020-06-02] MEDS ORDERED: NITROGLYCERIN SL 0.4 MG/TAB TAB SL PRN (22:34)
[2020-06-02] MEDS ORDERED: GABAPENTIN 1200MG ALCOHOL WITHDRAWAL LOAD PO STA (22:34)
[2020-06-02] MEDS ORDERED: ONDANSETRON INJ 2 MG/ML 2 ML VIAL IV PRN (22:34)
[2020-06-02] MEDS ORDERED: ATIVAN IV ALCOHOL WITHDRAWL IV PRN (22:34)
[2020-06-02] MEDS ORDERED: LORazepam 3 MG/6 ML VIAL IV PRN (22:34)
[2020-06-02] MEDS: SODIUM CHLORIDE 0.9% 1000ML 1,000 ML IV SCH (22:55)
[2020-06-02] MEDS: LORazepam 1 MG/2 ML VIAL IV PRN (22:56)
[2020-06-02] MEDS ORDERED: GABAPENTIN 600 MG TAB PO ONE (23:00)
[2020-06-02] MEDS: cloNIDine HCL 0.1 MG TAB PO SCH (23:05)
--- NOTE | 2020-06-03 00:44 | History and Physical Report ---
DATE OF ADMISSION: 06/02/2020 CHIEF COMPLAINT: Alcoholism and depression. HISTORY OF PRESENT ILLNESS: This is a 59-year-old male with past medical history significant for hypertension, mood disorder, GERD, ongoing tobacco and alcohol abuse. The patient was recently in the hospital, got admitted on 05/23/2020 and discharged on 05/26/2020. He was admitted for alcohol withdrawal and suicidal ideations. The patient states after he got discharged he again started drinking 13 beers every day. He says he talked to [facility] alcohol rehab and advised to come to the hospital for detoxification and evaluated by psych before they can take him and he wants to be detoxed. He is having some nausea, some abdominal discomfort. Presently somewhat shaky, but otherwise resting comfortably and hemodynamically stable. Denies any headache, no blurred visions, no earache, no runny nose, no sore throat, no loss of sense of smell or taste. Not eating much. No chest pain, no shortness of breath, no cough, no fevers, no chills, no abdominal pain. Has some diarrhea. No blood in the stools. Normal bladder movements. No rash seen.No thoughts of hurting himself. ALLERGIES: No known drug allergies. PAST MEDICAL HISTORY: As mentioned above. PAST SURGICAL HISTORY: No history of previous surgery as per records. FAMILY HISTORY: Significant for father at the age of 70 from [place]. Family history is significant for coronary artery disease. SOCIAL HISTORY: Smokes tobacco. Currently drinking 13 beers everyday. Lives alone. MEDICATIONS: The patient is on vitamin D daily, clonidine 0.1 mg p.o. b.i.d., folic acid 1 mg p.o. a.m., lisinopril 20 mg p.o. at bedtime, omeprazole 40 mg p.o. daily, sertraline 150 mg p.o. daily, thiamine 100 mg p.o. daily. REVIEW OF SYSTEMS: As per HPI. Rest of the review of systems negative. PHYSICAL EXAMINATION: GENERAL: The patient is of moderate build, not in acute distress. VITAL SIGNS: Temperature 36.8, pulse 85, respiratory rate 18, blood pressure 137/75, oxygen 96% on room air. HEENT: No pallor, no icterus. Pupils equal, round, and reactive to light. NECK: Supple, no neck masses seen. CARDIOVASCULAR: S1, S2, regular rate and rhythm, no murmur, no gallop. RESPIRATORY SYSTEM: Normal AP diameter. No accessory muscle use. No wheezing, no crackles. ABDOMEN: Soft, bowel sounds present. Nontender. No distention. CENTRAL NERVOUS SYSTEM: Cranial nerves II-XII grossly intact. Nonfocal. EXTREMITIES: No edema, no erythema. LABORATORY DATA: WBC 4.6, hemoglobin 17.6, hematocrit 48.8, platelets 217. Sodium 136, potassium 3.5, chloride 101, bicarbonate 26, BUN 9, creatinine 0.9, serum glucose 96, calcium 8.7, total bilirubin 0.6, AST 48, ALT 94, alkaline phosphatase 82. TSH 1.6. Urinalysis negative. Toxicology, salicylates of 1.8, acetaminophen less than 2, rest of the urine drug screen negative. Ethyl alcohol 235. ASSESSMENT AND PLAN: This is a 59-year-old male who presents with alcoholism and depression. 1. Alcoholism, alcohol level is 235. Monitor for alcohol withdrawal with gabapentin, IV Ativan p.r.n. Given Librium and Ativan in the ER. Recently was in the hospital with the same alcohol withdrawal. We will continue his home thiamine and folic acid. Psych consult, social service consult for possible alcohol rehab placement. 2. Gastroesophageal reflux disease. Continue omeprazole. 3. Hypertension. Continue lisinopril and clonidine. Monitor the blood pressure. We will place him on Clonidine p.r.n. 4. Mood disorder, continue Zoloft. 5. Deep venous thrombosis prophylaxis, sequential compression devices. DISPOSITION: Closely monitor in the med tele. Level 1 full code. Expect to discharge home and follow with family doctor. Level 1 full code. MTDD
[2020-06-03] MEDS: GABAPENTIN 600 MG TAB PO SCH ×3 (03:36→17:12)
[2020-06-03 06:23] LABS: Basophils # (auto) 0.03 K/uL (0-0.2); Basophils % (auto) 0.6 %; Eosinophils % (auto) 2.1 %; Hematocrit (blood only) 43.1 % (42-52); Hemoglobin 15.5 g/dL (14.0-18.0); Immature Granulocytes # (auto) 0.01 K/uL (0.00-0.02); Immature Granulocytes % (auto) 0.2 %; Lymphocytes # (auto) 1.67 K/uL (1.2-3.4); Lymphocytes % (auto) 34.7 %; Mean Corpuscular Hemoglobin 33.7 pg (25-34); Mean Corpuscular Volume 93.7 fL (80-100); Mean Platelet Volume 9.6 fL (7.4-10.4); Monocytes # (auto) 0.75 K/uL (0.11-0.59); Monocytes % (auto) 15.6 %; Neutrophils # (auto) 2.25 K/uL (1.4-6.5); Neutrophils % (auto) 46.8 %; Platelet Count 173 K/uL (130-400); RDW Coefficient of Variation 12.5 % (11.5-14.5); White Blood Count 4.81 K/uL (4.8-10.8)
[2020-06-03 06:45] LABS: BUN Creatinine Ratio 10.4 (10-20); Calcium 8.1 mg/dl (8.5-10.1); Creatinine Clr Calc Pharmacy 100.3 ml/min; Est GFR (African American) 108.5; Est GFR (Non-African American) 93.6; Potassium 3.4 mmol/L (3.5-5.1)
[2020-06-03] MEDS: THIAMINE HCL 100 MG TAB PO SCH (08:27)
[2020-06-03] MEDS: PANTOprazole 40 MG TAB PO SCH (08:27)
[2020-06-03] MEDS: FOLIC ACID 1 MG TAB PO SCH (08:28)
[2020-06-03] MEDS: CHOLECALCIFEROL 1,000 UNITS 25 MCG TAB PO SCH (08:28)
[2020-06-03] MEDS: cloNIDine HCL 0.1 MG TAB PO SCH ×2 (08:28→21:44)
[2020-06-03] MEDS: LORazepam 1 MG/2 ML VIAL IV PRN ×3 (08:42→19:34)
[2020-06-03] MEDS ORDERED: SERTRALINE HCL 50 MG TABLET PO SCH (09:00)
--- NOTE | 2020-06-03 09:45 | Psychiatric Consultation ---
Date of Consultation June 03, 2020 Impression / Recommendations Impression Dr. Zulema Rodriges was directly involved in review and discussion of the patient's case and participated in medical decision making regarding treatment recommendations. RECOMMENDATIONS: 06/03 - Psychiatric consultation requested by hospitalist service to evaluate the patient for depression and alcoholism. Pt is frequently seen by our service for similar presentations, most recently evaluated on 05/23/2020. - Most recent and consistent psychiatric symptoms have reflected a diagnosis of substance-induced depressive disorder. In the setting of continued alcohol use, it is felt that risks of continuing sertraline outweigh the benefits. Pt reports use of the medication is inconsistent, and as long as patient is regularly consuming alcohol (an innate depressant), any antidepressant is not likely to provide benefit for mood. Furthermore, use of medications which are known to lower seizure threshold are not recommended for use in patients who are regularly consuming alcohol or frequently going through withdrawal. We are recommending discontinuation of sertraline, with more accurate re-evaluation of mood symptoms to occur when patient has demonstrated commitment to sobriety. - Pt is denying SI/HI, SIB, and signs of acute psychosis. His symptoms are most consistent with depressed mood resulting for chronic alcohol use. In the absence of acute criteria for psychiatric admission, there is no indication that this level of treatment will be fruitful for the patient. His needs are best served at an inpatient D&A rehab, where he will receive appropriate support and treatment for alcohol dependence. - Coordination of rehab placement between case management and patient's outpatient D&A block and case maker, Shawn. It is reported there is already an accepting facility. We certainly encourage direct transfer to an inpatient D&A rehab when patient is through detox. - Please reach out to our service with any additional questions or updates. (1) Substance induced mood disorder: (2) Alcohol withdrawal: (3) Alcohol abuse: Risk Factors Assessment Do You Have Access To A Gun?: No Psych History Identifying Data 59-yeah-old male admitted medically on 06/02/2020 after presenting to the ED with request for alcohol detox. BAL on presentation was 235. Pt was discharged from the medical floor on 05/26/2020 for very similar presentation, refusing recommendation for rehab. Psychiatric consultation was requested to evaluate patient for depression and alcoholism - he was last seen for consultation and subsequent follow-up on 05/23/2020. Chief Complaint "Just went back to the old stuff." History of Present Illness Shadi Davalos is a 59-year-old male admitted medically with request for alcohol detox on 06/02/2020. BAL on presentation was 235. Pt has had numerous presentations for the same, and was last seen for consultation from our service on 05/23/2020 with subsequent follow-up visit prior to discharge. Psychiatric consultation was requested to evaluate patient for depression and alcoholism. It is reported that recommendation from his outpatient providers/supports is for inpatient D&A rehab. Pt was cooperative with assessment today. He states "I just went back to the old stuff." Pt states he began drinking immediately after discharge from the medical floor on 05/26/2020. He admits "something needs to change", but has consistently refused rehab in the past. Pt states he was encouraged to come to the ED by Jenny, a block and case maker at [facility], and his D&A block and case maker, Shawn, through [facility]. Pt states "they encouraged me to come in and go upstairs, then Shawn said he would help me pack when I get home and he'd take me to rehab." Pt was asked what he meant by "upstairs", and clarified "mental health treatment." He states he is uncertain why this was recommended. While he admits his mood has been "up and down", he does not report any new stressors and denies any acute psychiatric concerns. Pt states he is not suicidal, has no plan or intent, and reports "it's more that I just don't care." Pt reports to this provider that he has been taking his sertraline "everyday". We discussed risks associated with inconsistent dosing, antidepressant use while drinking, and risk of antidepressants being prescribed during withdrawal. Pt was recommended to discontinue sertraline until he is able to demonstrate commitment to sobriety. He was agreeable with this plan. Pt was reminded of our service's recommendation for direct transfer from the medical floor to a D&A rehab. He regularly insists on going home to "pack" or "pay bills." Pt states he has already been in contact with Shawn, who is planning to call case management to coordinate discharge planning. Physically, patient feels "not too bad", only "shakes and anxiousness." He denies other needs or concerns at this time. Past Psychiatric History Current Psychiatric Diagnosis: Alcohol dependence; alcohol-induced depressive disorder Outpatient Services: [facility] Previous Psych Admissions: [place] - 2017 [facility] - 09/2019, suicidality and alcohol intoxication; numerous psychiatric consultations [place] - 11/19/2019 Do You Have Access To A Gun?: No History of Previous Suicide Attempt: No Describe Attempts in the Past: but has presented to ED via police in past with verbalized plan Past Medication Trials: Inconsistent use of sertraline for several decades. Reported to be beneficial during periods of sobriety. Allergies Allergy/AdvReac Type Severity Reaction Status Date / Time No Known Allergies Allergy Verified 06/02/20 18:35 Home Medications Home Medications Medication Instructions Recorded Confirmed Type lisinopril 20 mg PO HS 03/16/20 06/02/20 History omeprazole 40 mg PO DAILY 03/16/20 06/02/20 History sertraline 150 mg PO DAILY 03/16/20 06/02/20 History clonidine HCl 0.1 mg PO BID #0 tab 03/19/20 06/02/20 Rx folic acid 1 mg PO QAM 30 Days #30 tab 05/26/20 06/02/20 Rx thiamine HCl (vitamin B1) [Vitamin 100 mg PO QAM 30 Days #30 tab 05/26/20 06/02/20 Rx B-1] cholecalciferol (vitamin D3) 0 mcg PO DAILY 06/02/20 06/02/20 History Family History Family history of alcoholism and drug abuse. No known family history of mental health conditions. Substance Abuse History Uses chewing tobacco daily. Has been consuming 30-pack of [place] most days - reported 13 beers in ED. Has been to inpatient D&A rehab 9-10 times in the past - history of admissions at [facility], [facility], and [place]. Has a D&A block and case maker through [facility]. Tox screen negative for other substances. 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) Marital Status: (x2, estranged from both spouses) Number Of Children: 3 adult children - estranged Beliefs That Will Affect Care: Sikh History of Legal Problems: previous consultations document "legal issues" Patient History Medical History Alcohol dependence Depression GERD (gastroesophageal reflux disease) Smoker Suicidal thoughts Surgical History No history of previous surgery Family History Father , age 70 from [place] Coronary heart disease Social History Smoking Status: Current every day smoker Tobacco Type: Cigarettes Second Hand Exposure: Yes; Hx Alcohol Use: Yes Alcohol type: beer Hx Substance Use: No Preferred Language: Malawian Communication Ability: Effective 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: No Beliefs That Will Affect Care: None marital status: Current Living Situation: Alone Current Living Situation Comment: pt states lives in large farmhouse where two brothers unrelated to him live Other Information That Helps Us Care for You: No Feels Safe at Home: Yes Safety Concerns: Feels Safe At This Time Physical Exam Psychiatric: Orientation: alert, oriented x 3 and cooperative (superficially) Apperance: appropriately dressed (appropriate for setting, wearing paper scrubs), appropriately groomed and appeared stated age Eye Contact: good eye contact Motor Behavior: + psychomotor agitation (restless legs) and + tremor (observed in hands bilaterally ) Speech: normal rate/rhythm/volume of speech (monotone speech) Affect: + blunted affect (appearing subdued) and mood congruent with affect Mood: + depressed mood ("up and down") Thought Process: goal directed thought process and clear/coherent thought process Thought Content: + cognitive distortions (consistent with alcohol abuse history) and + hopelessness ("I just don't care") Suicidal Thoughts: denies suicidal thoughts, denies suicidal plan and denies suicidal intent admits "I just don't care", but denies active SI, plan, means, or acts of furtherance Homicidal Thoughts: denies homicidal thoughts Hallucinations: no auditory hallucinations and no visual hallucinations Cognition: recent memory grossly intact, attention grossly intact and language grossly intact Estimated Intelligence: consistent with education level Insight: + poor insight Judgement: + poor judgement Vital Signs (Past 24 Hours): Last Vital Signs Temp 36.6 C 06/03/20 07:22 Pulse 79 06/03/20 07:22 Resp 20 06/03/20 07:22 BP 144/75 H 06/03/20 07:22 Pulse Ox 94 06/03/20 07:22 Review of Systems Constitutional: reports feeling "shaky" Cardiovascular: denied Respiratory: denied Gastrointestinal: denied Neurological: tremor of hands bilaterally, restless legs Psychiatric: denies symptoms other than stated above Total of at least 10 systems reviewed, pertinent positives as above and in HPI. Results & Data (PSY) Medications Administered Clonidine HCl (Clonidine Hcl 0.1 Mg Tab) 0.1 mg PO BID [facility] Stop: 07/02/20 22:59 Last Admin: 06/03/20 08:28 Dose: 0.1 mg Documented by: [id number] Admin: 06/02/20 23:05 Dose: 0.1 mg Documented by: [id number] Folic Acid (Folic Acid 1 Mg Tab) 1 mg PO QAM [facility] Stop: 07/03/20 08:59 Last Admin: 06/03/20 08:28 Dose: 1 mg Documented by: [id number] Gabapentin (Gabapentin 600 Mg Tab) 600 mg PO Q6H [facility] Stop: 06/03/20 10:01 Last Admin: 06/03/20 03:36 Dose: 600 mg Documented by: [id number] Sodium Chloride (Nss 1000ml) 1,000 mls @ 75 mls/hr IV .[id number] [facility] Stop: 07/02/20 22:33 Last Infusion: 06/03/20 09:15 Dose: 75 mls/hr Documented by: [id number] Infusion: 06/03/20 08:46 Dose: 0 mls/hr Documented by: [id number] Admin: 06/02/20 22:55 Dose: 75 mls/hr Documented by: [id number] Lorazepam (Ativan) 1 mg in 2 mls @ 2 mls/min IV UD PRN; Protocol PRN Reason: EtOH Withdrawl AWSS Score 6,7 Stop: 07/02/20 22:33 Last Admin: 06/03/20 08:42 Dose: 2 mls/min Documented by: [id number] Admin: 06/02/20 22:56 Dose: 2 mls/min Documented by: [id number] Ondansetron HCl (Ondansetron Inj 2 Mg/Ml 2 Ml Vial) 4 mg IV Q6H PRN PRN Reason: Nausea Stop: 07/02/20 22:33 Last Admin: 06/02/20 22:55 Dose: 4 mg Documented by: [id number] Pantoprazole Sodium (Pantoprazole 40 Mg Tab) 40 mg PO DAILY [facility] Stop: 07/03/20 08:59 Last Admin: 06/03/20 08:27 Dose: 40 mg Documented by: [id number] Thiamine HCl (Thiamine Hcl 100 Mg Tab) 100 mg PO QAM [facility] Stop: 07/03/20 08:59 Last Admin: 06/03/20 08:27 Dose: 100 mg Documented by: [id number] Vitamin D (Cholecalciferol 1,000 Units 25 Mcg Tab) 1,000 units PO DAILY [facility] Stop: 07/03/20 08:59 Last Admin: 06/03/20 08:28 Dose: 1,000 units Documented by: [id number] Coding Level of Care Code 60235 [facility] Int Hosp Care Lvl 2 Diagnoses Substance induced mood disorder F19.94 Alcohol withdrawal F10.239 Alcohol abuse F10.10
[2020-06-03] MEDS: SODIUM CHLORIDE 0.9% 1000ML 1,000 ML IV SCH (12:50)
[2020-06-03 12:57] LABS: Folate (Folic Acid) 9.84 ng/ml (>5.38)
--- NOTE | 2020-06-03 17:28 | Hospitalist Progress Note ---
Date of Service June 03, 2020 Assessment & Plan (1) Alcohol withdrawal: Alcohol intoxication/alcohol withdrawal History of chronic alcohol abuse Admitted with symptoms of alcohol withdrawal Alcoholism, alcohol level is 235. Charted on gabapentin alcohol withdrawal protocol Continue PRN IV Ativan Monitor for alcohol withdrawal with service consult for possible alcohol rehab placement. Depression: Appreciate input from psych Given significant alcohol abuse, patient needs to have complete abstinence from alcohol to assess treatment effect of anti-psychiatric meds/SSRI Recommends alcohol rehab Patient denies of any suicidal ideation No indication for inpatient psychiatric admission Hypertension: Continue clonidine and lisinopril Deep venous thrombosis prophylaxis, sequential compression devices. Admission and Anticipated Discharge Date Admission Date: June 02, 2020 Subjective complains of feeling jittery , anxious through out the day ativan PRN helps no halluciation or agiation tremor noted on both hands Physical Exam Constitutional: + ill appearing anxious Eyes: PERRL, conjunctivae normal, anicteric sclerae ENMT: external ear and nose normal, oropharynx normal Neck: trachea midline, no thyromegaly Respiratory: normal respiratory effort, lungs clear to auscultation Cardiovascular: Rate/Rhythm: + tachycardic Vessels: + dorsalis pedis pulses abnormal Gastrointestinal (Abdomen): Percussion/Palpation: abdomen soft Musculoskeletal: no cyanosis or clubbing, extremities motor strength 5/5 Neurologic: PERRL, EOMI, accommodation nl, no face palsy, no dysarthria Motor/Sensory: + tremor Psychiatric: A+Ox3, euthymic affect Affect: + anxious affect Results & Data Results & Data ([facility]) Vital Signs (Past 12 Hours) Vital Signs Temp Pulse Pulse Resp BP Pulse Ox 06/03/20 17:06 72 06/03/20 15:28 36.6 C 64 18 149/81 H 96 06/03/20 14:41 36.6 C 77 18 154/84 H 96 06/03/20 10:50 37 C 72 17 159/82 H 95 06/03/20 08:00 72 06/03/20 07:22 36.6 C 79 20 144/75 H 94
[2020-06-03] MEDS ORDERED: LORazepam 1 MG TAB PO STA (19:45)
[2020-06-03] MEDS ORDERED: TRAZODONE HCL 50 MG TAB PO ONE (19:47)
[2020-06-03] MEDS: lisinopriL 20 MG TAB PO SCH (21:43)
[2020-06-04] MEDS: SODIUM CHLORIDE 0.9% 1000ML 1,000 ML IV SCH (02:14)
[2020-06-04] MEDS: GABAPENTIN 600 MG TAB PO SCH ×3 (02:15→20:24)
[2020-06-04] MEDS: LORazepam 1 MG/2 ML VIAL IV PRN ×2 (05:40→17:05)
[2020-06-04] MEDS: cloNIDine HCL 0.1 MG TAB PO SCH ×2 (08:01→20:23)
[2020-06-04] MEDS: PANTOprazole 40 MG TAB PO SCH (08:02)
[2020-06-04] MEDS: FOLIC ACID 1 MG TAB PO SCH (08:02)
[2020-06-04] MEDS: CHOLECALCIFEROL 1,000 UNITS 25 MCG TAB PO SCH (08:02)
[2020-06-04] MEDS: THIAMINE HCL 100 MG TAB PO SCH (08:02)
[2020-06-04] MEDS ORDERED: POTASSIUM CHLORIDE 20 MEQ TABCR PO ONE (09:15)
--- NOTE | 2020-06-04 16:38 | Hospitalist Progress Note ---
Date of Service June 04, 2020 Assessment & Plan (1) Alcohol withdrawal: Alcohol Intoxication Alcohol Withdrawal H/O Chronic alcohol abuse Alcohol level: 235. Continue gabapentin protocol Ativan. Continue thiamine, folic acid Needs rehab placement Case management consulted to help with discharge planning Monitor for withdrawal Appreciate psychiatry input Depression Denies suicidal ideation Non-complaint with Sertraline Appreciate psychiatry input No indication for inpatient psychiatric admission Needs to be sober to reassess depression May benefit from psychiatry evaluation and outpatient Hypertension Continue clonidine, lisinopril Monitor GERD Continue PPI DVT Px: SCDs Disposition: Rehab as able Admission and Anticipated Discharge Date Admission Date: June 02, 2020 Subjective Patient is seen and examined at bedside Reports nausea but no vomiting Has chronic diarrhea unchanged Still has shakiness, tremor intermittently Tearful during my conversation Denies chest pain, shortness of breath, dizziness, abdominal pain Offers no other complaints Review of Systems Review of Systems: All systems reviewed & are unremarkable except as noted in HPI & below Physical Exam Physical Exam: Physical Exam: Vitals signs as noted above General Appearance:Moderately built and nourished, no apparent distress Head: normocephalic, Atraumatic Eyes: normal inspection, EOMI Neck: supple, Trachea midline Respiratory/Chest: Normal breath sounds, CTA Cardiovascular: S1, S2, No murmur Abdomen/GI:Soft, Non tender, Bowel sounds present Extremities/Musculoskelatal:normal inspection, no edema,+Tremor Neurologic/Psych:AAOX3, grossly no focal neurological deficits Skin: normal color, warm Results & Data Results & Data ([place]) Vital Signs (Past 12 Hours) Vital Signs Temp Pulse Pulse Resp BP BP Pulse Ox 06/04/20 15:18 37.6 C H 83 19 155/90 H 97 06/04/20 11:33 36.8 C 63 20 132/86 94 06/04/20 08:38 58 L 06/04/20 07:16 36.6 C 72 20 133/82 97
[2020-06-04] MEDS: lisinopriL 20 MG TAB PO SCH (20:24)
[2020-06-04] MEDS: LORazepam 0.5 MG TAB PO PRN (23:28)
[2020-06-05 08:04] LABS: BUN Creatinine Ratio 5.2 (10-20); Calcium 9.2 mg/dl (8.5-10.1); Creatinine Clr Calc Pharmacy 88.3 ml/min; Est GFR (African American) 103.8; Est GFR (Non-African American) 89.5; Magnesium 2.3 mg/dl (1.8-2.4); Potassium 3.4 mmol/L (3.5-5.1)
[2020-06-05] MEDS: THIAMINE HCL 100 MG TAB PO SCH (08:19)
[2020-06-05] MEDS: CHOLECALCIFEROL 1,000 UNITS 25 MCG TAB PO SCH (08:19)
[2020-06-05] MEDS: FOLIC ACID 1 MG TAB PO SCH (08:19)
[2020-06-05] MEDS: cloNIDine HCL 0.1 MG TAB PO SCH ×2 (08:19→20:03)
[2020-06-05] MEDS: PANTOprazole 40 MG TAB PO SCH (08:19)
[2020-06-05] MEDS: LORazepam 1 MG/2 ML VIAL IV PRN (08:25)
[2020-06-05] MEDS ORDERED: POTASSIUM CHLORIDE 20 MEQ TABCR PO ONE (08:30)
[2020-06-05] MEDS ORDERED: TRAZODONE HCL 50 MG TAB PO PRN (08:43)
[2020-06-05] MEDS: GABAPENTIN 600 MG TAB PO SCH (10:33)
--- NOTE | 2020-06-05 18:17 | Hospitalist Progress Note ---
Date of Service June 05, 2020 Assessment & Plan (1) Alcohol withdrawal: Alcohol Intoxication Alcohol Withdrawal H/O Chronic alcohol abuse Alcohol level: 235. Continue gabapentin protocol Ativan PRN Continue thiamine, folic acid Needs rehab placement Monitor for withdrawal Appreciate psychiatry input Continue current management Depression Denies suicidal ideation Non-complaint with Sertraline Sertraline discontinued as risks overweigh benefits given frequent intoxication, sporadic sertraline use Appreciate psychiatry input No indication for inpatient psychiatric admission Needs to be sober to reassess depression May benefit from psychiatry evaluation as outpatient Insomnia Resume Trazodone Hypokalemia Likely due to GI loses Replete electrolytes as needed Chronic Diarrhea Likely due to alcohol use Follow up with GI as outpatient Hypertension Continue clonidine, lisinopril Monitor GERD Continue PPI DVT Px: SCDs Disposition: Rehab as able Admission and Anticipated Discharge Date Admission Date: June 02, 2020 Subjective Patient is seen and examined at bedside States having poor sleep overnight Requests to resume trazodone No other new complaints Denies chest pain, shortness of breath, dizziness, abdominal pain Discussed with psychiatry today Review of Systems Review of Systems: All systems reviewed & are unremarkable except as noted in HPI & below Physical Exam Physical Exam: Physical Exam: Vitals signs as noted above General Appearance:Moderately built and nourished, no apparent distress Head: normocephalic, Atraumatic Eyes: normal inspection, EOMI Neck: supple, Trachea midline Respiratory/Chest: Normal breath sounds, CTA Cardiovascular: S1, S2, No murmur Abdomen/GI:Soft, Non tender, Bowel sounds present Extremities/Musculoskelatal:normal inspection, no edema,+Tremor Neurologic/Psych:AAOX3, grossly no focal neurological deficits Skin: normal color, warm Results & Data Results & Data ([facility]) Vital Signs (Past 12 Hours) Vital Signs Temp Pulse Pulse Resp BP Pulse Ox 06/05/20 15:18 36.9 C 80 20 118/78 95 06/05/20 07:17 62 06/05/20 07:15 36.5 C 72 18 161/92 H 96 Laboratory Results [facility] 06/05/20 07:18 Sodium 136 Potassium 3.4 L Chloride 103 Carbon Dioxide 27 BUN 5 L Creatinine 0.93 Glucose 119 H Calcium 9.2
[2020-06-05] MEDS: lisinopriL 20 MG TAB PO SCH (20:03)
[2020-06-05] MEDS: LORazepam 0.5 MG TAB PO PRN (23:06)
[2020-06-06 07:48] LABS: BUN Creatinine Ratio 7.7 (10-20); Calcium 9.1 mg/dl (8.5-10.1); Creatinine Clr Calc Pharmacy 67.9 ml/min; Est GFR (African American) 75.5; Est GFR (Non-African American) 65.1; Potassium 3.4 mmol/L (3.5-5.1)
[2020-06-06] MEDS: THIAMINE HCL 100 MG TAB PO SCH (07:56)
[2020-06-06] MEDS: PANTOprazole 40 MG TAB PO SCH (07:56)
[2020-06-06] MEDS: FOLIC ACID 1 MG TAB PO SCH (07:56)
[2020-06-06] MEDS: cloNIDine HCL 0.1 MG TAB PO SCH (07:57)
[2020-06-06] MEDS: CHOLECALCIFEROL 1,000 UNITS 25 MCG TAB PO SCH (07:57)
[2020-06-06] MEDS ORDERED: POTASSIUM CHLORIDE 20 MEQ TABCR PO ONE (08:30)
[2020-06-06] MEDS ORDERED: GABAPENTIN 600 MG TAB PO SCH (10:00)
--- NOTE | 2020-06-06 13:22 | Hospitalist Progress Note ---
Date of Service June 06, 2020 Assessment & Plan (1) Alcohol withdrawal: Alcohol Intoxication Alcohol Withdrawal H/O Chronic alcohol abuse Alcohol level: 235. Completed gabapentin protocol Ativan PRN Continue thiamine, folic acid Patient planning to go to [place] for Rehab upon discharge Appreciate psychiatry input Depression Denies suicidal ideation Non-complaint with Sertraline Sertraline discontinued as risks overweigh benefits given frequent intoxication, sporadic sertraline use Appreciate psychiatry input No indication for inpatient psychiatric admission Needs to be sober to reassess depression May benefit from psychiatry evaluation as outpatient Insomnia Continue Trazodone Hypokalemia Likely due to GI loses Replete electrolytes as needed Chronic Diarrhea Likely due to alcohol use Follow up with GI as outpatient Hypertension Continue clonidine, lisinopril Monitor GERD Continue PPI DVT Px: SCDs Disposition: Plan to Discharge Home today Patient not willing to stay for Inpatient Rehab Transfer on Tuesday He prefers to follow up with Rehab upon discharge Admission and Anticipated Discharge Date Admission Date: June 02, 2020 Subjective Patient is seen and examined at bedside States feeling well today No new complaints No significant withdrawal symptoms today Denies chest pain, shortness of breath, dizziness, abdominal pain Discussed with psychiatry today Patient prefers to follow-up with alcohol rehab as outpatient. Review of Systems Review of Systems: All systems reviewed & are unremarkable except as noted in HPI & below Physical Exam Physical Exam: Physical Exam: Vitals signs as noted above General Appearance:Moderately built and nourished, no apparent distress Head: normocephalic, Atraumatic Eyes: normal inspection, EOMI Neck: supple, Trachea midline Respiratory/Chest: Normal breath sounds, CTA Cardiovascular: S1, S2, No murmur Abdomen/GI:Soft, Non tender, Bowel sounds present Extremities/Musculoskelatal:normal inspection, no edema,+minimal Tremor Neurologic/Psych:AAOX3, grossly no focal neurological deficits Skin: normal color, warm Results & Data Results & Data ([facility]) Vital Signs (Past 12 Hours) Vital Signs Temp Pulse Resp BP Pulse Ox 06/06/20 07:42 36.3 C L 82 18 127/78 94 Laboratory Results [facility] 06/06/20 06:56 Sodium 139 Potassium 3.4 L Chloride 105 Carbon Dioxide 26 BUN 9 Creatinine 1.21 Glucose 113 H Calcium 9.1
--- NOTE | 2020-06-06 13:34 | Discharge Summary ---
Date of Service June 06, 2020 Admission HPI Per Admitting Provider CHIEF COMPLAINT: Alcoholism and depression. HISTORY OF PRESENT ILLNESS: This is a 59-year-old male with past medical history significant for hypertension, mood disorder, GERD, ongoing tobacco and alcohol abuse. The patient was recently in the hospital, got admitted on 05/23/2020 and discharged on 05/26/2020. He was admitted for alcohol withdrawal and suicidal ideations. The patient states after he got discharged he again started drinking 13 beers every day. He says he talked to [facility] alcohol rehab and advised to come to the hospital for detoxification and evaluated by psych before they can take him and he wants to be detoxed. He is having some nausea, some abdominal discomfort. Presently somewhat shaky, but otherwise resting comfortably and hemodynamically stable. Denies any headache, no blurred visions, no earache, no runny nose, no sore throat, no loss of sense of smell or taste. Not eating much. No chest pain, no shortness of breath, no cough, no fevers, no chills, no abdominal pain. Has some diarrhea. No blood in the stools. Normal bladder movements. No rash seen.No thoughts of hurting himself. Admission Exam Per Admitting Provider PHYSICAL EXAMINATION: GENERAL: The patient is of moderate build, not in acute distress. VITAL SIGNS: Temperature 36.8, pulse 85, respiratory rate 18, blood pressure 137/75, oxygen 96% on room air. HEENT: No pallor, no icterus. Pupils equal, round, and reactive to light. NECK: Supple, no neck masses seen. CARDIOVASCULAR: S1, S2, regular rate and rhythm, no murmur, no gallop. RESPIRATORY SYSTEM: Normal AP diameter. No accessory muscle use. No wheezing, no crackles. ABDOMEN: Soft, bowel sounds present. Nontender. No distention. CENTRAL NERVOUS SYSTEM: Cranial nerves II-XII grossly intact. Nonfocal. EXTREMITIES: No edema, no erythema. Principal Diagnosis Alcohol Withdrawal Depression Hypokalemia Discharge Data Allergies Allergy/AdvReac Type Severity Reaction Status Date / Time No Known Allergies Allergy Verified 06/02/20 18:35 Consultations 06/02/20 21:10 ED Decision to Admit Stat 06/02/20 22:34 Consult Case Management - Discharge Planning Routine Consult Case Management - Discharge Planning Routine 06/03/20 08:00 Consult Psychiatry Routine Hospital Course (1) Alcohol withdrawal: Alcohol Intoxication Alcohol Withdrawal H/O Chronic alcohol abuse Alcohol level: 235. Completed gabapentin protocol Ativan PRN Continue thiamine, folic acid Patient planning to go to [place] for Rehab upon discharge Appreciate psychiatry input Depression Denies suicidal ideation Non-complaint with Sertraline Sertraline discontinued as risks overweigh benefits given frequent intoxication, sporadic sertraline use Appreciate psychiatry input No indication for inpatient psychiatric admission Needs to be sober to reassess depression May benefit from psychiatry evaluation as outpatient Insomnia Continue Trazodone Hypokalemia Likely due to GI loses Replete electrolytes as needed Chronic Diarrhea Likely due to alcohol use Follow up with GI as outpatient Hypertension Continue clonidine, lisinopril Monitor GERD Continue PPI DVT Px: SCDs Disposition: Plan to Discharge Home today Patient not willing to stay for Inpatient Rehab Transfer on Tuesday He prefers to follow up with Rehab upon discharge Total Time Total Time Spent Total Time Spent (In Minutes): 36 minutes Total Time Includes: Examination of the Patient, Discharge Planning, Medication Reconciliation, Communication With Other Providers and Other Discharge Plan Discharge Items Patient Disposition: Home - Self-Care Reason For Visit: ALCOHOLISM Discharge Diagnosis: Alcohol Withdrawal Depression Hypokalemia Activity: Resume your previous activity Exercise/Sports: Gradually increase as tolerated Non-emergency contact: Primary Care Provider and Psychiatrist Call non-emergency contact if: you have any medication questions, your symptoms worsen, your pain is not controlled, your pain is worsening, your pain is unusual for you, your pain is concerning for you and you have a fever Follow-up/Referrals: [facility] [Primary Care Provider] - Diet: Heart Healthy Addtl Attending Provider Instructions: Follow-up with your primary care physician at [facility] in 1 week as advised Follow-up with your psychiatrist in 2 to 3 weeks for further management of your depression. Follow-up with alcohol rehab facility for further management. Seek immediate medical attention if your symptoms reoccur or worsen Pending Studies at Discharge: No Stand-Alone Forms: My [employer], Smoking Cessation Medications and DC Order Prescriptions: New potassium chloride [Klor-Con M10] 10 mEq Tablet,Er Particles/Crystals 10 meq PO DAILY Qty: 7 RF: 0 gabapentin 600 mg tablet 600 mg PO DAILY Qty: 3 RF: 0 Continued lisinopril 20 mg Tablet 20 mg PO HS RF: 0 omeprazole 20 mg Tablet,Delayed Release (Dr/Ec) 40 mg PO DAILY RF: 0 clonidine HCl 0.1 mg tablet 0.1 mg PO BID Qty: 0 RF: 0 cholecalciferol (vitamin D3) 10 mcg (400 unit) Tablet,Chewable 0 mcg PO DAILY RF: 0 trazodone 50 mg PO HS PRN (Reason: Insomnia) RF: 0 thiamine HCl (vitamin B1) [Vitamin B-1] 100 mg Tablet 100 mg PO QAM 30 Days Qty: 30 RF: 0 folic acid 1 mg Tablet 1 mg PO QAM 30 Days Qty: 30 RF: 0 Discontinued sertraline 100 mg Tablet 150 mg PO DAILY RF: 0 Discharge Orders: Discharge Order (Routine); Ordered 06/06/20 Ordered By: Benjamin Gonzalez Admission Data Admit Date/Time: 06/02/20 21:44 Attending Provider: Benjamin Gonzalez Admit Provider: Kahlil Del Rio Primary Care Provider: [facility],Medicine Other Providers: Kahlil Del Rio ; Zulema Rodriges Other Interventions: Discharge Summary Assessment (RN) Last Done: 06/06/20 14:10
--- NOTE | 2020-06-06 14:12 | Communication Note ---
Date of Service: June 06, [address] Robert Mayer to review patient's case - as patient's outpatient medical care is provided by the team at [facility]. Reviewed chronic concerns for patient's continued alcohol abuse, and that patient returns to drinking immediately upon discharge from the hospital. Discussed recommendation for direct transfer to rehab ([facility] with anticipated bed date of 06/10), to facilitate maintaining sobriety and ensuring every attempt is made to coordinate discharge plan to rehab. We reviewed lack of criteria for inpatient psychiatric admission. Recommendations were discussed with attending hospitalist, and contact information for Dr. Mayer was passed along to attending as well. Attending seemed to be receptive to keeping patient to facilitate recommended discharge plan, if patient was agreeable. Psychiatric service suggested consideration of AMA discharge if patient was demanding to leave prior to available bed. Of course, under mental health laws in [place], we are unable to involuntarily commit a patient to inpatient D&A rehab for treatment of substance abuse concerns.
[2020-06-07] MEDS ORDERED: POTASSIUM CHLORIDE 10 MEQ TABCR PO SCH (09:00)
== END 2020-06-06 14:47 | disposition home or self-care (01) | DRG 897 ==
LOC: ED 14:19 → SUATTDRO 21:44 → 2N 21:44

== ENCOUNTER 2020-12-08 13:15 | Inpatient (IN) ==
[2020-12-08] MEDS ORDERED: MULTI-VITAMIN INFUSION 10 ML, THIAMINE HCL 100 MG, FOLIC ACID 1 MG in SODIUM CHLORIDE 0... IV ONE (14:14)
--- NOTE | 2020-12-08 14:20 | Emergency Department Note ---
History of Present Illness General Chief complaint: Alcohol Intoxication Stated complaint: CHRONIC ALCOHOLIC Time Seen by Provider: 12/08/20 14:03 Source: patient History of Present Illness Provider complaint: Depression and alcoholism Onset (ago): week(s) Location: head Pain Consistency: + constant Maximum Pain Intensity: 4 Quality: + other (Depressed but not suicidal) Relieved By: + none Associated symptoms: + headaches (Bad headache yesterday but now resolved) and + nausea/vomiting; no chest pain, no cough, no fever/chills and no shortness of breath This is a 60-year-old male who presents to the emergency department due to depression and alcoholism. The patient states that he had controlled his drinking for some time with only occasional beers but over the past week he has been drinking heavily. He drinks about 30 beers a day. He last had 1 in [address] parking lot before he came into the emergency department. He states that he is depressed but not suicidal or homicidal. He does state something happened about a week ago to upset him but he does not wish to tell me about it. He did have a bad headache last night which has since resolved. He has no headache at this time and denies any head injury. He does state that he has been vomiting due to drinking too much. He denies any fever, chest pain, shortness of breath, cough or cold symptoms, abdominal pain or diarrhea or urinary symptoms. He was seen by [facility] and sent here for further evaluation. He is requesting inpatient care for alcohol withdrawal. He states he has never had a withdrawal seizure but has had possible delirium tremens. Home Medications Medication Instructions Recorded Confirmed Type lisinopril 20 mg PO HS 03/16/20 12/08/20 History omeprazole 40 mg PO DAILY 03/16/20 12/08/20 History clonidine HCl 0.1 mg PO BID #0 tab 03/19/20 12/08/20 Rx cholecalciferol (vitamin D3) 0 mcg PO DAILY 06/02/20 12/08/20 History sertraline [Zoloft] 150 mg PO DAILY 12/08/20 12/08/20 History vitamin B complex [B Complex] 1 tab PO DAILY 12/08/20 12/08/20 History Allergies Allergy/AdvReac Type Severity Reaction Status Date / Time No Known Allergies Allergy Verified 12/08/20 15:10 Past Med/Surg History Medical History (Updated 12/08/20 @ 17:12 by Kelvin Robles MD) Alcohol dependence Depression GERD (gastroesophageal reflux disease) Smoker Suicidal thoughts Surgical History No history of previous surgery Family History Father , age 70 from [place] Coronary heart disease Social History Smoking Status: Current every day smoker Tobacco Type: Cigarettes Second Hand Exposure: Yes; Hx Alcohol Use: Yes Alcohol type: beer Hx Substance Use: No Preferred Language: Kazakh Communication Ability: Effective Scalper Operator Required: No Beliefs That Will Affect Care: Rastafarian marital status: Current Living Situation: Alone Current Living Situation Comment: pt states lives in large farmhouse where two brothers unrelated to him live Feels Safe at Home: Yes Assistive Devices: None Review of Systems See HPI for pertinent positives & negatives. and A total of 10 systems reviewed and were otherwise negative Physical Exam Vital Signs Vital Signs - 24 hr 12/08/20 13:33 12/08/20 13:52 12/08/20 14:00 Temperature 36.5 C Temperature Source Temporal Artery Scan Pulse Rate 84 82 Pulse Rate from SpO2 Sensor 83 Respiratory Rate 20 18 30 H Respiratory Effort / Characteristics Non-Labored Spontaneous Respiratory Depth Normal Respiratory Pattern Regular Blood Pressure 167/108 H 103/74 Blood Pressure Mean 127 83 Blood Pressure Position Sitting Pulse Oximetry 96 96 Oxygen Delivery Method Room Air Room Air Room Air Sepsis Recent Fever Within 48 Hours No Sepsis New/Unexplained Change in Mental Status N/A Sepsis Action Taken by Nursing No Action Required 12/08/20 14:45 12/08/20 14:46 12/08/20 14:49 Temperature Temperature Source Pulse Rate 84 91 H Pulse Rate from SpO2 Sensor 85 Respiratory Rate 23 17 Respiratory Effort / Characteristics Respiratory Depth Respiratory Pattern Blood Pressure 192/107 H Blood Pressure Mean 135 Blood Pressure Position Pulse Oximetry 94 96 Oxygen Delivery Method Room Air Room Air Sepsis Recent Fever Within 48 Hours Sepsis New/Unexplained Change in Mental Status Sepsis Action Taken by Nursing 12/08/20 15:00 12/08/20 15:23 12/08/20 15:30 Temperature Temperature Source Pulse Rate 81 83 88 Pulse Rate from SpO2 Sensor 81 83 Respiratory Rate 20 20 17 Respiratory Effort / Characteristics Respiratory Depth Respiratory Pattern Blood Pressure 165/88 H 163/87 H 152/85 H Blood Pressure Mean 113 112 107 Blood Pressure Position Pulse Oximetry 94 94 95 Oxygen Delivery Method Sepsis Recent Fever Within 48 Hours Sepsis New/Unexplained Change in Mental Status Sepsis Action Taken by Nursing 12/08/20 15:31 12/08/20 16:00 12/08/20 16:01 Temperature Temperature Source Pulse Rate 84 85 87 Pulse Rate from SpO2 Sensor Respiratory Rate 18 20 21 Respiratory Effort / Characteristics Respiratory Depth Respiratory Pattern Blood Pressure 124/76 Blood Pressure Mean 92 Blood Pressure Position Pulse Oximetry 94 Oxygen Delivery Method Sepsis Recent Fever Within 48 Hours Sepsis New/Unexplained Change in Mental Status Sepsis Action Taken by Nursing 12/08/20 16:30 12/08/20 16:31 12/08/20 17:00 Temperature Temperature Source Pulse Rate 84 84 85 Pulse Rate from SpO2 Sensor Respiratory Rate 15 14 14 Respiratory Effort / Characteristics Respiratory Depth Respiratory Pattern Blood Pressure 142/74 H 130/71 Blood Pressure Mean 96 90 Blood Pressure Position Pulse Oximetry 94 95 Oxygen Delivery Method Sepsis Recent Fever Within 48 Hours Sepsis New/Unexplained Change in Mental Status Sepsis Action Taken by Nursing 12/08/20 17:01 Temperature Temperature Source Pulse Rate 84 Pulse Rate from SpO2 Sensor Respiratory Rate 15 Respiratory Effort / Characteristics Respiratory Depth Respiratory Pattern Blood Pressure Blood Pressure Mean Blood Pressure Position Pulse Oximetry 95 Oxygen Delivery Method Sepsis Recent Fever Within 48 Hours Sepsis New/Unexplained Change in Mental Status Sepsis Action Taken by Nursing Constitutional: Vital signs reviewed. Eyes: Pupils are equal round reactive to light. Conjunctiva are noninjected. ENT: Pharynx is clear without erythema or exudate. Mucous membranes are slightly dry. Neck supple without meningeal signs. Respiratory: Clear to auscultation bilaterally. Breath sounds are equal bila terally. Cardiovascular: Regular rate and rhythm. No rubs or gallops. GI: Soft, nondistended and nontender. Bowel sounds are present. Musculoskeletal: No peripheral edema. No lower extremity tenderness. Integumentary: No cyanosis. or jaundice. Neurological: The patient is awake and alert. No focal deficits. Psychiatric: Depressed affect. Not tearful. Course Administered Medications Discontinued Medications Multivitamins 10 ml/ Thiamine HCl 100 mg/ Folic Acid 1 mg/Sodium Chloride 1,011.2 mls @ 1,011.2 mls/hr IV .Q1H ONE Stop: 12/08/20 15:13 Last Infusion: 12/08/20 15:50 Dose: 0 mls/hr Documented by: [id number] Admin: 12/08/20 14:50 Dose: 1,011.2 mls/hr Documented by: [id number] Lorazepam (Ativan) 1 mg in 2 mls @ 2 mls/min IV NOW STA Stop: 12/08/20 15:14 Last Admin: 12/08/20 15:21 Dose: 2 mls/min Documented by: [id number] Medical Decision Making Differential Diagnosis Alcohol intoxication, alcohol dependence, alcohol withdrawal, mood disorder, drug abuse Medical Records Attestation: I reviewed the patient's medical records. I did perform a limited focused review of portions of the patient's old chart on the electronic medical record. The patient Was admitted for alcohol withdrawal and hypokalemia in May of last year. Home Medications Current Medication List: was personally reviewed by me Laboratory Data Attestation: I reviewed the patient's lab results. Result diagrams: 12/08/20 14:32 12/08/20 14:32 Lab Results 12/08/20 12/08/20 12/08/20 Range/Units 13:45 13:45 14:32 WBC 5.59 (4.8-10.8) K/uL RBC 5.55 (4.7-6.1) M/uL Hgb 18.9 H (14.0-18.0) g/dL Hct 50.3 (42-52) % MCV 90.6 (80-100) fL MCH 34.1 H (25-34) pg MCHC 37.6 H (32-36) g/dL RDW Std Deviation 41.5 (36.4-46.3) fL RDW Coeff of Eloy 12.4 (11.5-14.5) % Plt Count 200 (130-400) K/uL MPV 9.9 (7.4-10.4) fL Immature Gran % (Auto) 0.2 % Neut % (Auto) 46.9 % Lymph % (Auto) 39.9 % [place] % (Auto) 11.6 % Eos % (Auto) 0.9 % Baso % (Auto) 0.5 % Neut # (Auto) 2.62 (1.4-6.5) K/uL Lymph # (Auto) 2.23 (1.2-3.4) K/uL [place] # (Auto) 0.65 H (0.11-0.59) K/uL Eos # (Auto) 0.05 (0-0.5) K/uL Baso # (Auto) 0.03 (0-0.2) K/uL Immature Gran # (Auto) 0.01 (0.00-0.02) K/uL Sodium (136-145) mmol/L Potassium (3.5-5.1) mmol/L Chloride (98-107) mmol/L Carbon Dioxide (21-32) mmol/L Anion Gap (3-11) BUN (7-18) mg/dl Creatinine (0.6-1.4) mg/dl Est Cr Clr Drug Dosing ml/min Est GFR ( Amer) Est GFR (Non-Af Amer) BUN/Creatinine Ratio (10-20) Glucose (70-99) mg/dl Calcium (8.5-10.1) mg/dl Total Bilirubin (0.2-1) mg/dl AST (15-37) U/L ALT (12-78) U/L Alkaline Phosphatase (45-117) U/L Total Protein (6.4-8.2) gm/dl Albumin (3.4-5.0) gm/dl Globulin (2.5-4.0) gm/dl Albumin/Globulin Ratio (0.9-2) Lipase (73-393) U/L TSH (0.300-4.500) uIu/ml Urine Color Yellow Urine Appearance Clear (Clear) Urine pH 6.0 (4.5-7.5) Ur Specific [place] 1.008 (1.000-1.030) Urine Protein Negative (Negative) Urine Glucose (UA) Negative (Negative) Urine Ketones Negative (Negative) Urine Blood Negative (Negative) Urine Nitrite Negative (Negative) Urine Bilirubin Negative (Negative) Urine Urobilinogen Negative (Negative) Ur Leukocyte Esterase Negative (Negative) Salicylates (2.8-20) mg/dl Urine Opiates Screen Neg (Neg) Ur Methadone, Qual Neg (Neg) Acetaminophen (10-30) ug/ml Urine Barbiturates Neg (Neg) Ur Phencyclidine (PCP) Neg (Neg) U Amphetamin/Meth Scrn Neg (Neg) MDMA (Ecstasy) Screen Neg (Neg) U Benzodiazepines Scrn Neg (Neg) Ur Cocaine Metabolite Neg (Neg) U Marijuana (THC) Screen Neg (Neg) Ethyl Alcohol mg/dL (0-3) mg/dl COVID-19 Eval Order SARS-CoV-2, RNA, NAAT (NEGATIVE) 12/08/20 12/08/20 12/08/20 Range/Units 14:32 14:32 14:32 WBC (4.8-10.8) K/uL RBC (4.7-6.1) M/uL Hgb (14.0-18.0) g/dL Hct (42-52) % MCV (80-100) fL MCH (25-34) pg MCHC (32-36) g/dL RDW Std Deviation (36.4-46.3) fL RDW Coeff of Eloy (11.5-14.5) % Plt Count (130-400) K/uL MPV (7.4-10.4) fL Immature Gran % (Auto) % Neut % (Auto) % Lymph % (Auto) % [place] % (Auto) % Eos % (Auto) % Baso % (Auto) % Neut # (Auto) (1.4-6.5) K/uL Lymph # (Auto) (1.2-3.4) K/uL [place] # (Auto) (0.11-0.59) K/uL Eos # (Auto) (0-0.5) K/uL Baso # (Auto) (0-0.2) K/uL Immature Gran # (Auto) (0.00-0.02) K/uL Sodium 137 (136-145) mmol/L Potassium 3.7 (3.5-5.1) mmol/L Chloride 103 (98-107) mmol/L Carbon Dioxide 24 (21-32) mmol/L Anion Gap 10.0 (3-11) BUN 11 (7-18) mg/dl Creatinine 0.99 (0.6-1.4) mg/dl Est Cr Clr Drug Dosing 90.2 ml/min Est GFR ( Amer) 95.5 Est GFR (Non-Af Amer) 82.4 BUN/Creatinine Ratio 10.7 (10-20) Glucose 103 H (70-99) mg/dl Calcium 8.9 (8.5-10.1) mg/dl Total Bilirubin 0.8 (0.2-1) mg/dl AST 63 H (15-37) U/L ALT 105 H (12-78) U/L Alkaline Phosphatase 73 (45-117) U/L Total Protein 8.6 H (6.4-8.2) gm/dl Albumin 4.8 (3.4-5.0) gm/dl Globulin 3.8 (2.5-4.0) gm/dl Albumin/Globulin Ratio 1.3 (0.9-2) Lipase (73-393) U/L TSH 1.730 (0.300-4.500) uIu/ml Urine Color Urine Appearance (Clear) Urine pH (4.5-7.5) Ur Specific [place] (1.000-1.030) Urine Protein (Negative) Urine Glucose (UA) (Negative) Urine Ketones (Negative) Urine Blood (Negative) Urine Nitrite (Negative) Urine Bilirubin (Negative) Urine Urobilinogen (Negative) Ur Leukocyte Esterase (Negative) Salicylates 3.4 (2.8-20) mg/dl Urine Opiates Screen (Neg) Ur Methadone, Qual (Neg) Acetaminophen < 2 L (10-30) ug/ml Urine Barbiturates (Neg) Ur Phencyclidine (PCP) (Neg) U Amphetamin/Meth Scrn (Neg) MDMA (Ecstasy) Screen (Neg) U Benzodiazepines Scrn (Neg) Ur Cocaine Metabolite (Neg) U Marijuana (THC) Screen (Neg) Ethyl Alcohol mg/dL 250.0 H (0-3) mg/dl COVID-19 Eval Order SARS-CoV-2, RNA, NAAT (NEGATIVE) 12/08/20 12/08/20 12/08/20 Range/Units 14:32 15:27 15:27 WBC (4.8-10.8) K/uL RBC (4.7-6.1) M/uL Hgb (14.0-18.0) g/dL Hct (42-52) % MCV (80-100) fL MCH (25-34) pg MCHC (32-36) g/dL RDW Std Deviation (36.4-46.3) fL RDW Coeff of Eloy (11.5-14.5) % Plt Count (130-400) K/uL MPV (7.4-10.4) fL Immature Gran % (Auto) % Neut % (Auto) % Lymph % (Auto) % [place] % (Auto) % Eos % (Auto) % Baso % (Auto) % Neut # (Auto) (1.4-6.5) K/uL Lymph # (Auto) (1.2-3.4) K/uL [place] # (Auto) (0.11-0.59) K/uL Eos # (Auto) (0-0.5) K/uL Baso # (Auto) (0-0.2) K/uL Immature Gran # (Auto) (0.00-0.02) K/uL Sodium (136-145) mmol/L Potassium (3.5-5.1) mmol/L Chloride (98-107) mmol/L Carbon Dioxide (21-32) mmol/L Anion Gap (3-11) BUN (7-18) mg/dl Creatinine (0.6-1.4) mg/dl Est Cr Clr Drug Dosing ml/min Est GFR ( Amer) Est GFR (Non-Af Amer) BUN/Creatinine Ratio (10-20) Glucose (70-99) mg/dl Calcium (8.5-10.1) mg/dl Total Bilirubin (0.2-1) mg/dl AST (15-37) U/L ALT (12-78) U/L Alkaline Phosphatase (45-117) U/L Total Protein (6.4-8.2) gm/dl Albumin (3.4-5.0) gm/dl Globulin (2.5-4.0) gm/dl Albumin/Globulin Ratio (0.9-2) Lipase 365 (73-393) U/L TSH (0.300-4.500) uIu/ml Urine Color Urine Appearance (Clear) Urine pH (4.5-7.5) Ur Specific [place] (1.000-1.030) Urine Protein (Negative) Urine Glucose (UA) (Negative) Urine Ketones (Negative) Urine Blood (Negative) Urine Nitrite (Negative) Urine Bilirubin (Negative) Urine Urobilinogen (Negative) Ur Leukocyte Esterase (Negative) Salicylates (2.8-20) mg/dl Urine Opiates Screen (Neg) Ur Methadone, Qual (Neg) Acetaminophen (10-30) ug/ml Urine Barbiturates (Neg) Ur Phencyclidine (PCP) (Neg) U Amphetamin/Meth Scrn (Neg) MDMA (Ecstasy) Screen (Neg) U Benzodiazepines Scrn (Neg) Ur Cocaine Metabolite (Neg) U Marijuana (THC) Screen (Neg) Ethyl Alcohol mg/dL (0-3) mg/dl COVID-19 Eval [facility] SARS-[facility]-2, RNA, NAAT NEGATIVE (NEGATIVE) Imaging Data Radiologist's Impression: CT head/brain wo con CLINICAL HISTORY: Severe headache COMPARISON STUDY: 04/11/2020 TECHNIQUE: Axial CT of the brain is performed from the vertex to the skull base. IV contrast was not administered for this examination. A dose lowering technique was utilized adhering to the principles of ALARA. CT DOSE: 788.63 mGycm FINDINGS: No intra or extra-axial mass lesions are visualized. There is no CT evidence of acute cortical infarction. There is no evidence of midline shift. There is no acute hemorrhage. No calvarial fractures are visualized. There are minor white matter hypodensities likely on a small vessel basis. There is no evidence of pathologic ventricular dilatation. There is no evidence of acute sinusitis IMPRESSION: No acute intracranial findings ACT 112: Negative or not required by law. Electronically signed by: Steve Dominguez M.D. 12/08/2020 3:02 PM Dictated: 12/08/20 1501 Transcribed: 12/08/20 1501 [facility] Narrative I did evaluate the patient as noted above. The patient is presenting for alcohol withdrawal and dependence. He does wish to be admitted as an inpatient. He also states he is depressed but he will not tell me what he is depressed about. He does state something occurred about a week ago but will not further elaborate. He does state that he is not suicidal or homicidal. IV access was established. I did place an order for continuous cardiac monitoring. The monitor showed normal sinus rhythm at a rate of 80 bpm. I did order a urine analysis. He does not have a UTI. I did order and review the patient's blood work as noted in the electronic medical record. CBC and electrolytes are unremarkable. LFTs show mild elevation with a AST of 63 and ALT of 105. Serum alcohol is 250. I did order a CT of the head. I did review the images myself as well as the radiology report as described above. There is no evidence of acute intracranial abnormality. On reassessment the patient's blood pressure and respiratory rate has increased. He feels worsening withdrawal symptoms. I did treat him with Ativan 1 mg IV. On reassessment he states that he feels better. He will be hospitalized for further care and evaluation. I did discuss case with the hospitalist and pillowcase maker. Screening Covid testing is negative. Impression & Plan Alcohol withdrawal, Alcohol dependence, Headache Discharge Plan Visit Data Chief Complaint: Alcohol Intoxication Stated Complaint: CHRONIC ALCOHOLIC ED Provider: Kelvin Robles Discharge Problem: Alcohol withdrawal, Alcohol dependence, Headache Patient Disposition: Being Evaluated by Hospitalist Forms Stand Alone Forms: My [facility] Prescriptions Prescriptions: No Action lisinopril 20 mg Tablet 20 mg PO HS RF: 0 omeprazole 20 mg Tablet,Delayed Release (Dr/Ec) 40 mg PO DAILY RF: 0 clonidine HCl 0.1 mg tablet 0.1 mg PO BID Qty: 0 RF: 0 B Complex Tablet Extended Release 1 tab PO DAILY RF: 0 sertraline [Zoloft] 100 mg Tablet 150 mg PO DAILY RF: 0 cholecalciferol (vitamin D3) 10 mcg (400 unit) Tablet,Chewable 0 mcg PO DAILY RF: 0 Referrals Referrals: [facility],Medicine [Primary Care Provider] -
[2020-12-08 14:49] LABS: Basophils # (auto) 0.03 K/uL (0-0.2); Basophils % (auto) 0.5 %; Eosinophils # (auto) 0.05 K/uL (0-0.5); Eosinophils % (auto) 0.9 %; Hematocrit (blood only) 50.3 % (42-52); Hemoglobin 18.9 g/dL (14.0-18.0); Immature Granulocytes # (auto) 0.01 K/uL (0.00-0.02); Immature Granulocytes % (auto) 0.2 %; Lymphocytes # (auto) 2.23 K/uL (1.2-3.4); Lymphocytes % (auto) 39.9 %; Mean Corpuscular Hemoglobin 34.1 pg (25-34); Mean Corpuscular Hgb Conc 37.6 g/dL (32-36); Mean Corpuscular Volume 90.6 fL (80-100); Mean Platelet Volume 9.9 fL (7.4-10.4); Monocytes # (auto) 0.65 K/uL (0.11-0.59); Monocytes % (auto) 11.6 %; Neutrophils # (auto) 2.62 K/uL (1.4-6.5); Neutrophils % (auto) 46.9 %; Platelet Count 200 K/uL (130-400); RDW Coefficient of Variation 12.4 % (11.5-14.5); RDW Standard Deviation 41.5 fL (36.4-46.3); Red Blood Count 5.55 M/uL (4.7-6.1); White Blood Count 5.59 K/uL (4.8-10.8)
[2020-12-08 14:56] LABS: Appearance Urine Clear (Clear); Bilirubin Urine Negative (Negative); Blood Urine Negative (Negative); Color Urine Yellow; Glucose Urine UA Negative (Negative); Ketones Urine Negative (Negative); Leukocyte Esterase Urine Negative (Negative); Nitrite Urine Negative (Negative); Protein Urine Negative (Negative); Specific Gravity Urine 1.008 (1.000-1.030); Urobilinogen Urine Negative (Negative)
--- NOTE | 2020-12-08 15:03 | CT Scan Report ---
CT head/brain wo con CLINICAL HISTORY: Severe headache COMPARISON STUDY: 04/11/2020 TECHNIQUE: Axial CT of the brain is performed from the vertex to the skull base. IV contrast was not administered for this examination. A dose lowering technique was utilized adhering to the principles of ALARA. CT DOSE: 788.63 mGycm FINDINGS: No intra or extra-axial mass lesions are visualized. There is no CT evidence of acute cortical infarc tion. There is no evidence of midline shift. There is no acute hemorrhage. No calvarial fractures ar e visualized. There are minor white matter hypodensities likely on a small vessel basis. There is no evidence of pathologic ventricular dilatation. There is no evidence of acute sinusitis IMPRESSION: No acute intracranial findings ACT 112: Negative or not required by law. Electronically signed by: Steve Dominguez M.D. 12/08/2020 3:02 PM
[2020-12-08 15:09] LABS: Albumin Level 4.8 gm/dl (3.4-5.0); BUN Creatinine Ratio 10.7 (10-20); Calcium 8.9 mg/dl (8.5-10.1); Creatinine Clr Calc Pharmacy 90.2 ml/min; Est GFR (African American) 95.5; Est GFR (Non-African American) 82.4; Potassium 3.7 mmol/L (3.5-5.1)
[2020-12-08] MEDS ORDERED: LORazepam 1 MG/2 ML VIAL IV STA (15:13)
[2020-12-08 15:15] LABS: Acetaminophen < 2 ug/ml (10-30); Salicylate 3.4 mg/dl (2.8-20)
[2020-12-08 15:20] LABS: Albumin Globulin Ratio 1.3 (0.9-2); Bilirubin,Total 0.8 mg/dl (0.2-1); Globulin 3.8 gm/dl (2.5-4.0); Thyroid Stimulating Hormone 1.73 uIu/ml (0.300-4.500); Total Protein 8.6 gm/dl (6.4-8.2)
[2020-12-08 15:45] LABS: Amphetamines+Metham, Urine Neg (Neg); Barbiturates, Urine Neg (Neg); Benzodiazepine, Urine Neg (Neg); Cocaine, Urine Neg (Neg); MDMA (Ecstacy), Urine Neg (Neg); Methadone, Urine Neg (Neg); Opiate, Urine Neg (Neg); Phencyclidine, Urine Neg (Neg)
--- NOTE | 2020-12-08 17:22 | History & Physical Report ---
Date of Service December 08, 2020 Assessment & Plan (1) Alcohol withdrawal: Pt presents for alcohol withdrawal - hx of DTs but denies prior alcohol withdrawal seizure - Monitor PCU/telemetry - Labs in AM - Gabapentin/Ativan alcohol withdrawal protocol - LR at 150 ml/hr - Thiamine and folate - Consult case management - pt has been working with Shawn at [facility] D&A. At this point, does not want to do inpatient rehab again as he does not feel this would be helpful. (2) Depression: Resume outpatient Zoloft 150 mg daily - pt reports that he was taking it consistently until 1-2 weeks ago when he stopped all of his medication. (3) Hypertension: Resume Lisinopril 20 mg daily but will order Clonidine prn for now until BP stabilizes (4) GERD (gastroesophageal reflux disease): Continue outpatient PPI therapy DVT Prophylaxis - Lovenox Code status - full code Pt seen and reviewed with collaborating physician, Dr. Gonzalez. Plan of care discussed and as outlined above. Tai Sauceda PA-C History of Present Illness Chief Complaint: Alcohol withdrawal Primary Care Provider: [facility] This is a 60 y/o male with a PMH of HTN, alcoholism, and depression who presents to the ED today with alcohol withdrawal symptoms. Pt reports a long history of alcohol abuse for which he has completed rehab multiple times. He was most recently admitted to this facility in May 2020 but declined to wait for an inpatient rehab bed. Pt reports that he had essentially stopped drinking after that last admission with only an occasional beer until 1-2 weeks ago. He reports a series of events (but is not specific about what they are) that lead to him stopping all of his routine medications and starting to drink alcohol daily again. He reports drinking 30 beers per day with last drink shortly before arriving in the ED. He has noticed tremors in his hands starting today. Yesterday he had a severe CARPENTER but this improved after sleeping last night. Still present intermittently today but mild. +photophobia. No known head trauma. For the past few days, he has noted intermittent nausea and vomiting, last emesis just prior to arrival. No hematemesis. He reports a hx of DTs with withdrawal but denies prior alcohol-related seizure that he can recall. He does report symptoms of anxiety and depression over the past two weeks, but he is unsure how much is related to abruptly stopping his Zoloft. He follows with [facility] for his medical care and reached out to them for assistance with his goal of stopping drinking again today. Due to his PMH, they referred him to the ED for monitoring and possible admission. Allergies Allergy/AdvReac Type Severity Reaction Status Date / Time No Known Allergies Allergy Verified 12/08/20 15:10 Home Medications Medication Instructions Recorded Confirmed Type lisinopril 20 mg PO HS 03/16/20 12/08/20 History omeprazole 40 mg PO DAILY 03/16/20 12/08/20 History clonidine HCl 0.1 mg PO BID #0 tab 03/19/20 12/08/20 Rx cholecalciferol (vitamin D3) 0 mcg PO DAILY 06/02/20 12/08/20 History sertraline [Zoloft] 150 mg PO DAILY 12/08/20 12/08/20 History vitamin B complex [B Complex] 1 tab PO DAILY 12/08/20 12/08/20 History Past Med/Surg History Medical History (Updated 12/08/20 @ 17:14 by Emperatriz Sauceda PA-C) Alcohol dependence Depression GERD (gastroesophageal reflux disease) Smoker Suicidal thoughts Surgical History No history of previous surgery Family History Father , age 70 from [place] Coronary heart disease Social History Smoking Status: Current every day smoker Tobacco Type: Cigarettes Second Hand Exposure: Yes; Do You Dip or Chew Tobacco: Yes; Hx Alcohol Use: Yes Alcohol type: beer Hx Substance Use: No Preferred Language: Maori Communication Ability: Effective Medical Assembler Required: No Beliefs That Will Affect Care: None marital status: Current Living Situation: Alone Current Living Situation Comment: pt states lives in large farmhouse where two brothers unrelated to him live Feels Safe at Home: Yes Safety Concerns: Feels Safe At This Time Assistive Devices: None Review of Systems Review of Systems: All systems reviewed & are unremarkable except as noted in HPI & below Constitutional: + sweats and + fatigue; no fever and no chills Eyes: no diplopia and not seeing flashes Ear, Nose, Mouth, Throat: no nasal congestion, no nasal discharge and no sore throat Respiratory: no cough, no dyspnea, no hemoptysis and no wheezing Cardiovascular: no chest pain, no palpitations, no syncope and no edema Gastrointestinal: + nausea and + vomiting; no abdominal pain, no heartburn, no diarrhea/loose stools and no blood in stools Genitourinary: no dysuria, no urinary frequency and no hematuria Musculoskeletal: no back pain, no neck pain and no muscle weakness Integumentary: no rash and no urticaria Neurologic: + tremor(s), + dizziness and + headache(s); no generalized weakness and no seizure-like activity Psychiatric: + depression, + abnormal sleep pattern and + anxiety Physical Exam Constitutional: drowsy at times but arousable and conversant. Oriented x 3. Cooperative. +smell of EtOH. Frequently repositioning during the interview Eyes: PERRL, conjunctivae normal, anicteric sclerae ENMT: external ear and nose normal, oropharynx normal Neck: trachea midline Respiratory: no respiratory distress and no labored breathing Auscultation: lungs clear to auscultation bilaterally; no rales, no rhonchi and no wheezes Cardiovascular: Rate/Rhythm: regular rate and regular rhythm Heart Sounds: no gallop and no cardiac rub Vessels: dorsalis pedis pulses present and radial pulses present Extremities: no calf tenderness and no pedal edema Gastrointestinal (Abdomen): Inspection/Auscultation: normal bowel sounds; abdomen not distended Percussion/Palpation: abdomen soft; abdomen nontender Musculoskeletal: Head/Neck/Chest: normocephalic, head atraumatic and neck supple Extremities: no cyanosis and no clubbing Skin: no rashes, warm and dry Neurologic: moves all extremities Motor/Sensory: + tremor (in bilateral hands) and + abnormal movement (frequent restless leg movements) Cranial Nerves: tongue midline Psychiatric: Motor Behavior: + psychomotor agitation Affect: + tearful affect Mood: + anxious mood Suicidal Thoughts: denies suicidal thoughts Homicidal Thoughts: denies homicidal thoughts Results & Data Results & Data ([facility]) Vital Signs (Past 12 Hours) Vital Signs Temp Pulse Resp BP Pulse Ox 12/08/20 17:01 84 15 95 12/08/20 17:00 85 14 130/71 95 12/08/20 16:31 84 14 03/01/21 16:30 84 15 142/74 H 94 12/08/20 16:01 87 21 12/08/20 16:00 85 20 124/76 12/08/20 15:31 84 18 94 12/08/20 15:30 88 17 152/85 H 95 12/08/20 15:23 83 20 163/87 H 94 12/08/20 15:00 81 20 165/88 H 94 12/08/20 14:49 96 12/08/20 14:46 91 H 17 12/08/20 14:45 84 23 192/107 H 94 12/08/20 14:00 30 H 103/74 12/08/20 13:52 82 18 167/108 H 96 12/08/20 13:33 36.5 C 84 20 96 Laboratory Results Laboratory Results - last 24 hr 12/08/20 12/08/20 12/08/20 13:45 13:45 14:32 WBC 5.59 RBC 5.55 Hgb 18.9 H Hct 50.3 MCV 90.6 MCH 34.1 H MCHC 37.6 H RDW Std Deviation 41.5 RDW Coeff of Eloy 12.4 Plt Count 200 MPV 9.9 Immature Gran % (Auto) 0.2 Neut % (Auto) 46.9 Lymph % (Auto) 39.9 [place] % (Auto) 11.6 Eos % (Auto) 0.9 Baso % (Auto) 0.5 Neut # (Auto) 2.62 Lymph # (Auto) 2.23 [place] # (Auto) 0.65 H Eos # (Auto) 0.05 Baso # (Auto) 0.03 Immature Gran # (Auto) 0.01 Sodium Potassium Chloride Carbon Dioxide Anion Gap BUN Creatinine Est Cr Clr Drug Dosing Est GFR ( Amer) Est GFR (Non-Af Amer) BUN/Creatinine Ratio Glucose Calcium Total Bilirubin AST ALT Alkaline Phosphatase Total Protein Albumin Globulin Albumin/Globulin Ratio Lipase TSH Urine Color Yellow Urine Appearance Clear Urine pH 6.0 Ur Specific [place] 1.008 Urine Protein Negative Urine Glucose (UA) Negative Urine Ketones Negative Urine Blood Negative Urine Nitrite Negative Urine Bilirubin Negative Urine Urobilinogen Negative Ur Leukocyte Esterase Negative Salicylates Urine Opiates Screen Neg Ur Methadone, Qual Neg Acetaminophen Urine Barbiturates Neg Ur Phencyclidine (PCP) Neg U Amphetamin/Meth Scrn Neg MDMA (Ecstasy) Screen Neg U Benzodiazepines Scrn Neg Ur Cocaine Metabolite Neg U Marijuana (THC) Screen Neg Ethyl Alcohol mg/dL COVID-19 Eval Order SARS-CoV-2, RNA, NAAT 12/08/20 12/08/20 12/08/20 14:32 14:32 14:32 WBC RBC Hgb Hct MCV MCH MCHC RDW Std Deviation RDW Coeff of Eloy Plt Count MPV Immature Gran % (Auto) Neut % (Auto) Lymph % (Auto) [place] % (Auto) Eos % (Auto) Baso % (Auto) Neut # (Auto) Lymph # (Auto) [place] # (Auto) Eos # (Auto) Baso # (Auto) Immature Gran # (Auto) Sodium 137 Potassium 3.7 Chloride 103 Carbon Dioxide 24 Anion Gap 10.0 BUN 11 Creatinine 0.99 Est Cr Clr Drug Dosing 90.2 Est GFR ( Amer) 95.5 Est GFR (Non-Af Amer) 82.4 BUN/Creatinine Ratio 10.7 Glucose 103 H Calcium 8.9 Total Bilirubin 0.8 AST 63 H ALT 105 H Alkaline Phosphatase 73 Total Protein 8.6 H Albumin 4.8 Globulin 3.8 Albumin/Globulin Ratio 1.3 Lipase TSH 1.730 Urine Color Urine Appearance Urine pH Ur Specific [place] Urine Protein Urine Glucose (UA) Urine Ketones Urine Blood Urine Nitrite Urine Bilirubin Urine Urobilinogen Ur Leukocyte Esterase Salicylates 3.4 Urine Opiates Screen Ur Methadone, Qual Acetaminophen < 2 L Urine Barbiturates Ur Phencyclidine (PCP) U Amphetamin/Meth Scrn MDMA (Ecstasy) Screen U Benzodiazepines Scrn Ur Cocaine Metabolite U Marijuana (THC) Screen Ethyl Alcohol mg/dL 250.0 H COVID-19 Eval Order SARS-CoV-2, RNA, NAAT 12/08/20 12/08/20 12/08/20 14:32 15:27 15:27 WBC RBC Hgb Hct MCV MCH MCHC RDW Std Deviation RDW Coeff of Eloy Plt Count MPV Immature Gran % (Auto) Neut % (Auto) Lymph % (Auto) [place] % (Auto) Eos % (Auto) Baso % (Auto) Neut # (Auto) Lymph # (Auto) [place] # (Auto) Eos # (Auto) Baso # (Auto) Immature Gran # (Auto) Sodium Potassium Chloride Carbon Dioxide Anion Gap BUN Creatinine Est Cr Clr Drug Dosing Est GFR ( Amer) Est GFR (Non-Af Amer) BUN/Creatinine Ratio Glucose Calcium Total Bilirubin AST ALT Alkaline Phosphatase Total Protein Albumin Globulin Albumin/Globulin Ratio Lipase 365 TSH Urine Color Urine Appearance Urine pH Ur Specific [place] Urine Protein Urine Glucose (UA) Urine Ketones Urine Blood Urine Nitrite Urine Bilirubin Urine Urobilinogen Ur Leukocyte Esterase Salicylates Urine Opiates Screen Ur Methadone, Qual Acetaminophen Urine Barbiturates Ur Phencyclidine (PCP) U Amphetamin/Meth Scrn MDMA (Ecstasy) Screen U Benzodiazepines Scrn Ur Cocaine Metabolite U Marijuana (THC) Screen Ethyl Alcohol mg/dL COVID-19 Eval [facility] SARS-CoV-2, RNA, NAAT NEGATIVE Diagnostic Findings CT Head 12/08/20 - IMPRESSION: No acute intracranial findings Medications Administered Discontinued Medications Multivitamins 10 ml/ Thiamine HCl 100 mg/ Folic Acid 1 mg/Sodium Chloride 1,011.2 mls @ 1,011.2 mls/hr IV .Q1H ONE Stop: 12/08/20 15:13 Last Infusion: 12/08/20 15:50 Dose: 0 mls/hr Documented by: [id number] Admin: 12/08/20 14:50 Dose: 1,011.2 mls/hr Documented by: [id number] Lorazepam (Ativan) 1 mg in 2 mls @ 2 mls/min IV NOW STA Stop: 12/08/20 15:14 Last Admin: 12/08/20 15:21 Dose: 2 mls/min Documented by: [id number] Code Status & VTE Plan VTE Prophylaxis Plan VTE Prophylaxis will be ordered: Yes Supervising Physician Co-Signing Physician Notes Patient is a 60-year-old male with history of hypertension, alcohol use disorder and other medical problems presents with for management of alcohol withdrawal. Please review HPI for complete details of presentation. He is anxious and restless during my encounter. He is noncompliant with his home medications. He relapsed to using alcohol due to social stressors. Patient currently denies any suicidal ideation and does not believe that he needs psychiatry evaluation. CT head showed no acute intracranial findings. Labs consistent with hemoconcentration. Alcohol level 250. Mild elevated LFTs noted. On exam patient is moderately built and nourished, mild distress, normocephalic atraumatic, lungs are clear to auscultation, S1-S2, no murmur, abdomen soft, nontender, normal bowel sounds, alert, awake, oriented, mild nonfocal deficits, no pedal edema. Patient is admitted for management of alcohol withdrawal. Agree with gabapentin, Ativan protocol. Started on thiamine, folic acid. Will consider psychiatry evaluation if patient agrees. Will resume lisinopril for better control of his blood pressure. Agree with clonidine as needed for blood pressure control. I personally reviewed the record. Patient is interviewed and examined at bedside. Patient's care is coordinated with Emperatriz Sauceda PA-C . Please refer to the documentation above for details of patient's presentation and for discussion of other issues. (1) Alcohol withdrawal Complication of substance-induced condition: uncomplicated Qualified Code(s): F10.230 - Alcohol dependence with withdrawal, uncomplicated (2) Depression Depression Type: unspecified Qualified Code(s): F32.9 - Major depressive disorder, single episode, unspecified (3) GERD (gastroesophageal reflux disease) Esophagitis presence: esophagitis presence not specified Qualified Code(s): K21.9 - Gastro-esophageal reflux disease without esophagitis (4) Hypertension Hypertension type: unspecified Qualified Code(s): I10 - Essential (primary) hypertension
[2020-12-08] MEDS ORDERED: GABAPENTIN 800MG ALCOHOL WITHDRAWAL LOAD PO STA (17:52)
[2020-12-08] MEDS ORDERED: ATIVAN IV ALCOHOL WITHDRAWL IV PRN (17:52)
[2020-12-08] MEDS ORDERED: cloNIDine HCL 0.1 MG TAB PO PRN (17:52)
[2020-12-08] MEDS ORDERED: LORazepam 3 MG/6 ML VIAL IV PRN (17:52)
[2020-12-08] MEDS ORDERED: GABAPENTIN 400 MG CAP PO ONE (18:00)
[2020-12-08] MEDS: FOLIC ACID 1 MG TAB PO SCH (18:28)
[2020-12-08] MEDS: LACTATED RINGER'S 1,000 ML IV SCH (18:28)
[2020-12-08] MEDS: THIAMINE HCL 100 MG TAB PO SCH (18:29)
[2020-12-08] MEDS ORDERED: ACETAMINOPHEN 325 MG TAB PO PRN (18:38)
[2020-12-08] MEDS: LORazepam 2 MG/4 ML VIAL IV PRN (19:45)
[2020-12-08] MEDS ORDERED: lisinopril 20 MG TAB PO SCH (21:00)
[2020-12-08] MEDS: ENOXAPARIN INJ 40 MG/0.4 ML SYR SQ SCH (22:00)
[2020-12-08] MEDS: GABAPENTIN 400 MG CAP PO SCH (23:47)
[2020-12-09] MEDS: LACTATED RINGER'S 1,000 ML IV SCH (02:22)
[2020-12-09] MEDS: LORazepam 1 MG/2 ML VIAL IV PRN ×2 (06:00→22:25)
[2020-12-09] MEDS: GABAPENTIN 400 MG CAP PO SCH ×3 (06:00→20:46)
[2020-12-09 06:55] LABS: Basophils # (auto) 0.02 K/uL (0-0.2); Basophils % (auto) 0.4 %; Eosinophils # (auto) 0.08 K/uL (0-0.5); Eosinophils % (auto) 1.7 %; Hematocrit (blood only) 46.7 % (42-52); Hemoglobin 16.8 g/dL (14.0-18.0); Lymphocytes # (auto) 1.69 K/uL (1.2-3.4); Mean Corpuscular Hemoglobin 33.1 pg (25-34); Mean Corpuscular Volume 91.9 fL (80-100); Mean Platelet Volume 10.3 fL (7.4-10.4); Monocytes # (auto) 0.64 K/uL (0.11-0.59); Monocytes % (auto) 13.3 %; Neutrophils % (auto) 49.6 %; Platelet Count 154 K/uL (130-400); RDW Coefficient of Variation 12.4 % (11.5-14.5); RDW Standard Deviation 41.7 fL (36.4-46.3); Red Blood Count 5.08 M/uL (4.7-6.1); White Blood Count 4.83 K/uL (4.8-10.8)
[2020-12-09 07:21] LABS: Albumin Level 4.1 gm/dl (3.4-5.0); BUN Creatinine Ratio 11.1 (10-20); Bilirubin Direct 0.3 mg/dl (0-0.2); Calcium 8.6 mg/dl (8.5-10.1); Creatinine Clr Calc Pharmacy 87.6 ml/min; Est GFR (African American) 92.2; Est GFR (Non-African American) 79.5; Magnesium 2.3 mg/dl (1.8-2.4); Potassium 3.5 mmol/L (3.5-5.1)
[2020-12-09 07:28] LABS: Bilirubin,Total 1.4 mg/dl (0.2-1); Total Protein 7.4 gm/dl (6.4-8.2)
[2020-12-09] MEDS: VITAMIN B COMPLEX TAB PO SCH (08:29)
[2020-12-09] MEDS: THIAMINE HCL 100 MG TAB PO SCH (08:29)
[2020-12-09] MEDS: FOLIC ACID 1 MG TAB PO SCH (08:29)
[2020-12-09] MEDS: PANTOprazole 40 MG TAB PO SCH (08:29)
[2020-12-09] MEDS: SERTRALINE HCL 50 MG TABLET PO SCH (08:29)
[2020-12-09] MEDS: lisinopril 20 MG TAB PO SCH (08:47)
[2020-12-09] MEDS: LORazepam 2 MG/4 ML VIAL IV PRN (10:21)
--- NOTE | 2020-12-09 15:51 | Hospitalist Progress Note ---
Date of Service December 09, 2020 Assessment & Plan (1) Alcohol withdrawal: Alcohol withdrawal H/O DTs Continue gabapentin, Ativan PRN as per protocol Received IV fluids Continue thiamine, folic acid Currently not interested in rehab placement Counseled to quit drinking Patient in contact with Shawn at [facility] D[facility] patient is to follow up as outpatient after being detoxed. (2) Depression: Denies suicidal ideation Currently refuses psychiatric evaluation Noncompliant with medications Continue Zoloft (3) Hypertension: BP elevated in setting of alcohol withdrawal Continue Lisinopril Clonidine prn (4) GERD (gastroesophageal reflux disease): Continue PPI DVT Px: Lovenox SQ Code status Full code Disposition Expected discharge home when medically stable Admission and Anticipated Discharge Date Admission Date: December 08, 2020 Subjective Patient is seen and examined at bedside Tearful during my encounter Denies any suicidal ideation Denies chest pain, dyspnea, dizziness, nausea, abdominal pain States having some shakiness, tremor Currently not interested in rehab placement Review of Systems Review of Systems: All systems reviewed & are unremarkable except as noted in HPI & below Physical Exam Physical Exam: Physical Exam: Vitals signs as noted above General Appearance:Moderately built and nourished, no apparent distress, +Tremor Head: normocephalic, Atraumatic Eyes: normal inspection, EOMI Neck: supple, Trachea midline Respiratory/Chest: Normal breath sounds, CTA Cardiovascular: S1, S2, No murmur Abdomen/GI:Soft, Non tender, Bowel sounds present Extremities/Musculoskelatal:normal inspection, no edema Neurologic/Psych:AAOX3, grossly no focal neurological deficits Skin: normal color, warm Results & Data Results & Data ([facility]) Vital Signs (Past 12 Hours) Vital Signs Temp Pulse Pulse Resp BP Pulse Ox 12/09/20 15:02 36.7 C 83 18 166/82 H 97 12/09/20 14:48 86 12/09/20 11:24 36.5 C 85 18 182/98 H 98 12/09/20 08:07 91 H 12/09/20 07:19 36.5 C 80 18 175/96 H 96 12/09/20 04:41 36.3 C L 79 20 156/93 H 96 Laboratory Results Short CBC 12/09/20 Range/Units 06:25 WBC 4.83 (4.8-10.8) K/uL Hgb 16.8 (14.0-18.0) g/dL Hct 46.7 (42-52) % Plt Count 154 (130-400) K/uL BMP 12/09/20 06:25 Sodium 136 Potassium 3.5 Chloride 103 Carbon Dioxide 25 BUN 11 Creatinine 1.02 Glucose 115 H Calcium 8.6 Liver Function 12/09/20 Range/Units 06:25 Total Bilirubin 1.4 H D (0.2-1) mg/dl Direct Bilirubin 0.3 H (0-0.2) mg/dl AST 57 H (15-37) U/L ALT 86 H (12-78) U/L Alkaline Phosphatase 73 (45-117) U/L Albumin 4.1 (3.4-5.0) gm/dl (1) Alcohol withdrawal Complication of substance-induced condition: uncomplicated Qualified Code(s): F10.230 - Alcohol dependence with withdrawal, uncomplicated (2) Depression Depression Type: unspecified Qualified Code(s): F32.9 - Major depressive di sorder, single episode, unspecified (3) Hypertension Hypertension type: unspecified Qualified Code(s): I10 - Essential (primary) hypertension (4) GERD (gastroesophageal reflux disease) Esophagitis presence: esophagitis presence not specified Qualified Code(s): K21.9 - Gastro-esophageal reflux disease without esophagitis
[2020-12-09] MEDS: ENOXAPARIN INJ 40 MG/0.4 ML SYR SQ SCH (20:46)
[2020-12-10] MEDS: GABAPENTIN 400 MG CAP PO SCH (06:02)
[2020-12-10 07:05] LABS: Hematocrit (blood only) 46.7 % (42-52); Mean Corpuscular Hemoglobin 33.2 pg (25-34); Mean Corpuscular Hgb Conc 36.4 g/dL (32-36); Mean Corpuscular Volume 91.2 fL (80-100); Mean Platelet Volume 10.6 fL (7.4-10.4); Platelet Count 145 K/uL (130-400); RDW Coefficient of Variation 12.2 % (11.5-14.5); RDW Standard Deviation 41.2 fL (36.4-46.3); Red Blood Count 5.12 M/uL (4.7-6.1); White Blood Count 4.02 K/uL (4.8-10.8)
[2020-12-10 07:41] LABS: Albumin Globulin Ratio 1.2 (0.9-2); Albumin Level 4.3 gm/dl (3.4-5.0); BUN Creatinine Ratio 10.8 (10-20); Bilirubin,Total 1.3 mg/dl (0.2-1); Calcium 8.7 mg/dl (8.5-10.1); Creatinine Clr Calc Pharmacy 90.1 ml/min; Est GFR (African American) 107.2; Est GFR (Non-African American) 92.5; Globulin 3.6 gm/dl (2.5-4.0); Potassium 3.4 mmol/L (3.5-5.1); Total Protein 7.9 gm/dl (6.4-8.2)
[2020-12-10] MEDS: VITAMIN B COMPLEX TAB PO SCH (08:42)
[2020-12-10] MEDS: FOLIC ACID 1 MG TAB PO SCH (08:43)
[2020-12-10] MEDS: THIAMINE HCL 100 MG TAB PO SCH (08:43)
[2020-12-10] MEDS: SERTRALINE HCL 50 MG TABLET PO SCH (08:43)
[2020-12-10] MEDS: lisinopril 20 MG TAB PO SCH (08:43)
[2020-12-10] MEDS: PANTOprazole 40 MG TAB PO SCH (08:43)
--- NOTE | 2020-12-10 16:12 | Discharge Summary ---
Date of Service December 10, 2020 Admission HPI Per Admitting Provider This is a 60 y/o male with a PMH of HTN, alcoholism, and depression who presents to the ED today with alcohol withdrawal symptoms. Pt reports a long history of alcohol abuse for which he has completed rehab multiple times. He was most recently admitted to this facility in May 2020 but declined to wait for an inpatient rehab bed. Pt reports that he had essentially stopped drinking after that last admission with only an occasional beer until 1-2 weeks ago. He reports a series of events (but is not specific about what they are) that lead to him stopping all of his routine medications and starting to drink alcohol daily again. He reports drinking 30 beers per day with last drink shortly before arriving in the ED. He has noticed tremors in his hands starting today. Yesterday he had a severe CARPENTER but this improved after sleeping last night. Still present intermittently today but mild. +photophobia. No known head trauma. For the past few days, he has noted intermittent nausea and vomiting, last emesi s just prior to arrival. No hematemesis. He reports a hx of DTs with withdrawal but denies prior alcohol-related seizure that he can recall. He does report symptoms of anxiety and depression over the past two weeks, but he is unsure how much is related to abruptly stopping his Zoloft. He follows with [facility] his medical care and reached out to them for assistance with his goal of stopping drinking again today. Due to his PMH, they referred him to the ED for monitoring and possible admission. Principal Diagnosis Alcohol withdrawal Discharge Exam General- No acute distress Head- atraumatic Eyes- PERRL, EOMI, No nustagmus ENT- oropharynx clear Neck- supple, no JVD Lungs- clear to auscultation Heart- regular rhythm; no murmur Abdomen- normal bowel sounds, soft, nontender Extremities- no calf tenderness Neuro- alert, oriented x 3; PERRL, EOMI; no facial palsy; no dysarthria, +tremor s Skin- warm & dry Discharge Data Allergies Allergy/AdvReac Type Severity Reaction Status Date / Time No Known Allergies Allergy Verified 12/08/20 15:10 Consultations 12/08/20 15:15 ED Decision to Admit Stat 12/08/20 17:52 Consult Case Management - Discharge Planning Routine Ordered Studies 12/08/20 14:14 CT head/brain wo con Stat Hospital Course (1) Alcohol withdrawal: presented intoxicated state , ETOH withdrawl H/O DTs received gabapentin, Ativan PRN as per protocol Continue thiamine, folic acid Currently not interested for inpatient Drug /alcoho rehab " been there before " Patient in contact with Shawn at [facility] D&A patient is to follow up as outpatient after discharged from hospital vitals been stable no tremor , no S/s withdrawal eager to be discharged home today lengthy discussion regarding life threatening consequences if continued to drink heavily pt voiced understanding and willing to seek help to quit drinking with out patient counselling (2) Depression: Denies suicidal ideation Currently refuses psychiatric evaluation Noncompliant with medications Continue Zoloft (3) Hypertension: BP elevated in setting of alcohol withdrawal/pt also stopped taking his meds for > weeks while drinking home dose Lisinopril resumed , BP has been stable cont Clonidine scheduled dose -home med (4) GERD (gastroesophageal reflux disease): Continue PPI DVT Px: Lovenox SQ Code status Full code Disposition Discharged home today Total Time Total Time Spent Total Time Spent (In Minutes): 35 mins Total Time Includes: Examination of the Patient, Discharge Planning and Medication Reconciliation Discharge Plan Discharge Items Patient Disposition: Home - Self-Care Reason For Visit: ALCOHOL WITHDRAWAL Discharge Diagnosis: Alcohol withdrawal Activity: Resume your previous activity Non-emergency contact: Primary Care Provider Call non-emergency contact if: you have any medication questions Follow-up/Referrals: [facility],Medicine [Primary Care Provider] - Diet: Heart Healthy Addtl Attending Provider Instructions: IT IS VERY IMPORTANT FOR YOU TO HAVE ABSOLUTE ABSTINENCE FROM ALCOHOL PLEASE SEEK HELP THROUGH YOUR FAMILY PHYSICIAN AND OUT PATIENT CASE MANAGEMENT FOR ALCOHOL REHAB AND ADDICTION RECOVERY RESOURCES Please take all medications as instructed on discharge list below. It is recommended that you follow-up with your primary care physician within 1-2 weeks of hospital discharge to ensure you are still doing well. Please call if you have any questions or problems. You can reach a [facility] hospitalist on duty at [facility] 24 hours a day by calling [phone] Pending Studies at Discharge: No Stand-Alone Forms: My [facility] Essential [facility], Smoking Cessation Medications and DC Order Prescriptions: Continued lisinopril 20 mg Tablet 20 mg PO HS RF: 0 omeprazole 20 mg Tablet,Delayed Release (Dr/Ec) 40 mg PO DAILY RF: 0 clonidine HCl 0.1 mg tablet 0.1 mg PO BID Qty: 0 RF: 0 vitamin B complex Tablet Extended Release 1 tab PO DAILY RF: 0 sertraline [Zoloft] 100 mg Tablet 150 mg PO DAILY RF: 0 cholecalciferol (vitamin D3) 10 mcg (400 unit) Tablet,Chewable 0 mcg PO DAILY RF: 0 Discharge Orders: Discharge Order (Routine); Ordered 12/10/20 Ordered By: Elisa Vicente/Other Patient Handouts: Addiction: Getting Help, Addiction Recovery Counseling Admission Data Admit Date/Time: 12/08/20 16:50 Attending Provider: Elisa Castro Admit Provider: Benjamin Gonzalez Primary Care Provider: Shar[facility],Medicine Other Providers: Benjamin Gonzalez Other Interventions: Discharge Summary Assessment (RN) Last Done: 12/10/20 16:13
[2020-12-10] MEDS ORDERED: GABAPENTIN 400 MG CAP PO SCH (18:00)
[2020-12-12] MEDS ORDERED: GABAPENTIN 400 MG CAP PO SCH (06:00)
== END 2020-12-10 16:20 | disposition home or self-care (01) ==
LOC: ED 13:15 → SUATTDRO 16:50 → 2E 16:50

== ENCOUNTER 2021-12-29 11:53 | Inpatient (IN) ==
[2021-12-29] MEDS ORDERED: ONDANSETRON INJ 2 MG/ML 2 ML VIAL IV STA (12:40)
[2021-12-29] MEDS ORDERED: PANTOprazole 40 MG TAB PO STA (12:40)
[2021-12-29] MEDS ORDERED: FAMOTIDINE 20MG IV PUSH 20 MG/5 ML SYR IV STA (12:40)
[2021-12-29] MEDS ORDERED: chlordiazePOXIDE HCl 25 MG CAP PO ONE (12:40)
[2021-12-29] MEDS ORDERED: LORazepam 2 MG/1 ML VIAL IV STA (12:40)
[2021-12-29] MEDS ORDERED: MULTI-VITAMIN INFUSION 10 ML, THIAMINE HCL 100 MG, FOLIC ACID 1 MG in SODIUM CHLORIDE 0... IV ONE (12:40)
[2021-12-29] MEDS ORDERED: SODIUM CHLORIDE 0.9% 500 ML IV SCH (12:45)
--- NOTE | 2021-12-29 12:49 | Emergency Department Note ---
Impression & Plan Alcohol withdrawal, Alcohol abuse, Vomiting ED Provider Note NAME: ROBI WREN AGE: 61 SEX: M : 1960 ARRIVES VIA: Walk-In INFORMANT: [Patient] ED PROVIDER(S): [Naif Wiggins MD] CHIEF COMPLAINT: Detox request HISTORY OF PRESENT ILLNESS: The patient is a 61-year-old male who states that is here for alcohol detox. He has gone through detox before. He has been drinking beer heavily for at least 5 or 6 months. He has been drinking a 30 pack/day. He last drank just before coming here. He did vomit a bit this morning. The patient denies any blood in the vomitus. The patient states that he has a lot of stomach issues for which he is on medication. He states he feels a bit anxious right now and thinks he may be starting to go through withdrawal. He denies ever having a seizure with withdrawal. He is unsure if he has ever had DTs. There has been no recent illness, no cough or cold or congestion. The patient has decided he wants to be alcohol free. He spoke with his doctor, he was referred to the ED. REVIEW OF SYSTEMS: See HPI for pertinent positives and negatives. A total of ten systems were reviewed and were otherwise negative. PMHx/PSHx: See Below SOCIAL HISTORY: See Below. PHYSICAL EXAM: GENERAL: Patient is in no acute distress. Alcohol on his breath. HEENT: No acute trauma, normocephalic atraumatic, mucous membranes moist, no nasal congestion, no scleral icterus. NECK: No stridor, no adenopathy, no meningismus, trachea is midline. LUNGS: Clear to auscultation bilaterally, no wheeze, no rhonchi, breath sounds equal. HEART: Without murmurs gallops or rubs, regular rate and rhythm. ABDOMEN: Soft, nontender, bowel sounds positive, no hernias, no peritonitis. EXTREMITIES: No cyanosis or edema, full range of motion of all the joints without pain or difficulty, no signs for acute trauma. NEUROLOGIC: Oriented x 3, no acute motor or sensory deficits, no focal weakness. Constantly moving his lower extremities. SKIN: No rash, no jaundice, no diaphoresis. Psychiatric: Cooperative, nonsuicidal, voluntary. DIFFERENTIAL DIAGNOSIS: Infection, alcohol abuse/withdrawal, drug abuse, dehydration, metabolic abnormality, hypo/hyperglycemia, electrolyte disturbance, anemia, depression, anxiety, suicidality, as well as other pathologies. EMERGENCY DEPARTMENT COURSE/PROCEDURES: ECG: Indication was withdrawal and weakness. The ECG shows a normal sinus r hythm with a rate of 78. There is no ST elevation, no PVCs. The QTc is 426. Continuous Cardiac Monitoring: An order was placed for continuous cardiac monitoring. The monitor shows a rate of 81 with normal sinus rhythm. Critical Care Note: I have personally spent 47 minutes of critical care time in the direct management of this patient. This includes bedside care, interpretation of diagnostic studies, and testing, discussion with consultants, patient, and family members, and other required patient management activities. This 47 minutes is in excess of all separately billable procedures. MEDICAL DECISION MAKING: There is no leukocytosis or concerning anemia. There is a normal platelet count. Sodium is a bit low at 135, no renal failure. There were some liver enzyme elevations, likely from his alcohol use/abuse. The patient appeared to be in a euthyroid state. Urinalysis does not show evidence for infection or hematuria. Alcohol level was elevated at 95. Urine tox was negative. Aspirin and Tylenol levels were undetectable. Covid testing returned negative. On exam, the patient was a bit agitated and anxious, he could not sit still. He was not febrile. There was alcohol noted on his breath although, he did not appear significantly intoxicated from alcohol. The patient received IV saline. He was given IV saline with multivitamins thiamine and folate. He was given IV Zofran, oral Protonix. He was given IV Ativan, IV Pepcid and oral Librium. Patient does seem to be improved with the medications administered. He is no longer agitated. The patient is in need of a hospital stay for his alcohol withdrawal. He would benefit from rehab once stabilized. I spoke with the patient and case management. The on-call hospitalist was consulted. Past Med/Surg History Medical History (Updated 12/29/21 @ 18:07 by Naif Wiggins MD) Alcohol dependence Depression GERD (gastroesophageal reflux disease) Smoker Suicidal thoughts Surgical History No history of previous surgery Family History Father , age [address] [place] Coronary heart disease Social History Smoking Status: Never smoker Tobacco Type: Cigarettes Second Hand Exposure: Yes; Hx Alcohol Use: Yes Alcohol type: beer Hx Substance Use: No Preferred Language: [place] Communication Ability: Effective Wildlife Enforcement Major Required: No Beliefs That Will Affect Care: None marital status: Current Living Situation: Alone Current Living Situation Comment: pt states lives in large farmhouse where two brothers unrelated to him live Feels Safe at Home: Yes Assistive Devices: None Allergies Allergies Allergy/AdvReac Type Severity Reaction Status Date / Time No Known Allergies Allergy Verified 12/29/21 15:05 Home Meds Home Medications Medication Instructions Recorded Confirmed lisinopril 20 mg tablet 20 mg PO DAILY 03/16/20 12/29/21 omeprazole 20 mg tablet,delayed 40 mg PO DAILY 03/16/20 12/29/21 release cholecalciferol (vitamin D3) 10 20 mcg PO DAILY 06/02/20 12/29/21 mcg (400 unit) chewable tablet vitamin B complex 1 tab PO DAILY 12/08/20 12/29/21 atorvastatin 40 mg tablet (Lipitor) 40 mg PO HS 12/29/21 12/29/21 Previous Rx's Medication Instructions Recorded clonidine HCl 0.1 mg tablet 0.1 mg PO BID #0 tab 03/19/20 Results & Data (ED) Vital Signs Vital Signs - 24 hr 12/29/21 12:05 12/29/21 12:25 12/29/21 13:00 Temperature 36.5 C Temperature Source Temporal Artery Scan Pulse Rate 81 78 Pulse Rate from SpO2 Sensor 78 Pulse Rhythm Regular Pulse Strength Normal Respiratory Rate 20 23 Respiratory Effort / Characteristics Non-Labored Spontaneous Respiratory Depth Normal Respiratory Pattern Regular Blood Pressure 160/88 H Blood Pressure [Right Arm] 150/86 H Blood Pressure Mean 112 Blood Pressure Mean [Right Arm] 107 Blood Pressure Position [Right Arm] Semi-fowlers Pulse Oximetry 96 93 Oxygen Delivery Method Room Air Sepsis Recent Fever Within 48 Hours No Sepsis New/Unexplained Change in Mental Status No Sepsis Action Taken by Nursing No Action Required 12/29/21 13:30 12/29/21 14:30 12/29/21 15:00 Temperature Temperature Source Pulse Rate 79 78 85 Pulse Rate from SpO2 Sensor 78 Pulse Rhythm Pulse Strength Respiratory Rate 15 20 18 Respiratory Effort / Characteristics Respiratory Depth Respiratory Pattern Blood Pressure Blood Pressure [Right Arm] Blood Pressure Mean Blood Pressure Mean [Right Arm] Blood Pressure Position [Right Arm] Pulse Oximetry 97 Oxygen Delivery Method Room Air Sepsis Recent Fever Within 48 Hours Sepsis New/Unexplained Change in Mental Status Sepsis Action Taken by Nursing 12/29/21 15:30 12/29/21 16:00 12/29/21 16:30 Temperature Temperature Source Pulse Rate 75 82 78 Pulse Rate from SpO2 Sensor 75 78 Pulse Rhythm Pulse Strength Respiratory Rate 25 H 18 37 H Respiratory Effort / Characteristics Respiratory Depth Respiratory Pattern Blood Pressure Blood Pressure [Right Arm] Blood Pressure Mean Blood Pressure Mean [Right Arm] Blood Pressure Position [Right Arm] Pulse Oximetry 96 97 Oxygen Delivery Method Room Air Room Air Sepsis Recent Fever Within 48 Hours Sepsis New/Unexplained Change in Mental Status Sepsis Action Taken by Nursing 12/29/21 16:39 Temperature Temperature Source Pulse Rate Pulse Rate from SpO2 Sensor Pulse Rhythm Pulse Strength Respiratory Rate Respiratory Effort / Characteristics Respiratory Depth Respiratory Pattern Blood Pressure Blood Pressure [Right Arm] 150/86 H Blood Pressure Mean Blood Pressure Mean [Right Arm] 107 Blood Pressure Position [Right Arm] Pulse Oximetry Oxygen Delivery Method Sepsis Recent Fever Within 48 Hours Sepsis New/Unexplained Change in Mental Status Sepsis Action Taken by Detention Medications Current Medication List: was personally reviewed by me Laboratory Data Attestation: I reviewed the patient's lab results. Result diagrams: 12/29/21 12:52 12/29/21 12:52 Lab Results 12/29/21 12/29/21 12/29/21 Range/Units 12:52 12:52 12:52 WBC 5.05 (4.8-10.8) K/uL RBC 5.02 (4.7-6.1) M/uL Hgb 17.1 (14.0-18.0) g/dL Hct 45.7 (42-52) % MCV 91.0 (80-100) fL MCH 34.1 H (25-34) pg MCHC 37.4 H (32-36) g/dL RDW Std Deviation 41.7 (36.4-46.3) fL RDW Coeff of [place] 12.4 (11.5-14.5) % Plt Count 180 (130-400) K/uL MPV 9.9 (7.4-10.4) fL Immature Gran % (Auto) 0.2 % Neut % (Auto) 52.8 % Lymph % (Auto) 34.9 % [place] % (Auto) 10.3 % Eos % (Auto) 1.4 % Baso % (Auto) 0.4 % Neut # (Auto) 2.67 (1.4-6.5) K/uL Lymph # (Auto) 1.76 (1.2-3.4) K/uL [place] # (Auto) 0.52 (0.11-0.59) K/uL Eos # (Auto) 0.07 (0-0.5) K/uL Baso # (Auto) 0.02 (0-0.2) K/uL Immature Gran # (Auto) 0.01 (0.00-0.02) K/uL Sodium 135 L (136-145) mmol/L Potassium 3.8 (3.5-5.1) mmol/L Chloride 102 (98-107) mmol/L Carbon Dioxide 22 (21-32) mmol/L Anion Gap 11 (3-11) BUN 11 (6-23) mg/dl Creatinine 0.83 (0.6-1.4) mg/dl Est Cr Clr Drug Dosing 107.8 ml/min Est GFR ( Amer) 110.1 ml/min Est GFR (Non-Af Amer) 95.0 ml/min BUN/Creatinine Ratio 13.3 (10-20) Glucose 101 H (70-99(Fasting)) mg/dl Calcium 9.4 (8.5-10.1) mg/dl Total Bilirubin 0.9 (0.2-1.0) mg/dl AST 77 H (13-39) U/L ALT 66 H (7-52) U/L Alkaline Phosphatase 86 (34-104) U/L Total Protein 7.8 (6.0-8.3) gm/dl Albumin 4.7 (3.4-5.0) gm/dl Globulin 3.1 (2.5-4.0) gm/dl Albumin/Globulin Ratio 1.5 (0.9-2) TSH 1.404 (0.300-4.500) uIu/ml Urine Color Urine Appearance (Clear) Urine pH (4.5-7.5) Ur Specific [place] (1.000-1.030) Urine Protein (Negative) Urine Glucose (UA) (Negative) Urine Ketones (Negative) Urine Blood (Negative) Urine Nitrite (Negative) Urine Bilirubin (Negative) Urine Urobilinogen (Negative) Ur Leukocyte Esterase (Negative) Salicylates (3.0-30) mg/dl Urine Opiates Screen (Neg) Ur Methadone, Qual (Neg) Acetaminophen (10-30) ug/ml Urine Barbiturates (Neg) Ur Phencyclidine (PCP) (Neg) U Amphetamin/Meth Scrn (Neg) MDMA (Ecstasy) Screen (Neg) U Benzodiazepines Scrn (Neg) Ur Cocaine Metabolite (Neg) U Marijuana (THC) Screen (Neg) Ethyl Alcohol mg/dL (<10.0) mg/dl SARS-CoV-2, RNA, NAAT (NEGATIVE) 12/29/21 12/29/21 12/29/21 Range/Units 12:52 12:52 Unknown WBC (4.8-10.8) K/uL RBC (4.7-6.1) M/uL Hgb (14.0-18.0) g/dL Hct (42-52) % MCV (80-100) fL MCH (25-34) pg MCHC (32-36) g/dL RDW Std Deviation (36.4-46.3) fL RDW Coeff of [place]oy (11.5-14.5) % Plt Count (130-400) K/uL MPV (7.4-10.4) fL Immature Gran % (Auto) % Neut % (Auto) % Lymph % (Auto) % [place] % (Auto) % Eos % (Auto) % Baso % (Auto) % Neut # (Auto) (1.4-6.5) K/uL Lymph # (Auto) (1.2-3.4) K/uL [place] # (Auto) (0.11-0.59) K/uL Eos # (Auto) (0-0.5) K/uL Baso # (Auto) (0-0.2) K/uL Immature Gran # (Auto) (0.00-0.02) K/uL Sodium (136-145) mmol/L Potassium (3.5-5.1) mmol/L Chloride (98-107) mmol/L Carbon Dioxide (21-32) mmol/L Anion Gap (3-11) BUN (6-23) mg/dl Creatinine (0.6-1.4) mg/dl Est Cr Clr Drug Dosing ml/min Est GFR ( Amer) ml/min Est GFR (Non-Af Amer) ml/min BUN/Creatinine Ratio (10-20) Glucose (70-99(Fasting)) mg/dl Calcium (8.5-10.1) mg/dl Total Bilirubin (0.2-1.0) mg/dl AST (13-39) U/L ALT (7-52) U/L Alkaline Phosphatase (34-104) U/L Total Protein (6.0-8.3) gm/dl Albumin (3.4-5.0) gm/dl Globulin (2.5-4.0) gm/dl Albumin/Globulin Ratio (0.9-2) TSH (0.300-4.500) uIu/ml Urine Color Yellow Urine Appearance Clear (Clear) Urine pH 5.0 (4.5-7.5) Ur Specific [place] 1.004 (1.000-1.030) Urine Protein Negative (Negative) Urine Glucose (UA) Negative (Negative) Urine Ketones Negative (Negative) Urine Blood Negative (Negative) Urine Nitrite Negative (Negative) Urine Bilirubin Negative (Negative) Urine Urobilinogen Negative (Negative) Ur Leukocyte Esterase Negative (Negative) Salicylates < 3.0 L (3.0-30) mg/dl Urine Opiates Screen (Neg) Ur Methadone, Qual (Neg) Acetaminophen < 3 L (10-30) ug/ml Urine Barbiturates (Neg) Ur Phencyclidine (PCP) (Neg) U Amphetamin/Meth Scrn (Neg) MDMA (Ecstasy) Screen (Neg) U Benzodiazepines Scrn (Neg) Ur Cocaine Metabolite (Neg) U Marijuana (THC) Screen (Neg) Ethyl Alcohol mg/dL 95.4 H (<10.0) mg/dl SARS-CoV-2, RNA, NAAT (NEGATIVE) 12/29/21 12/29/21 Range/Units Unknown Unknown WBC (4.8-10.8) K/uL RBC (4.7-6.1) M/uL Hgb (14.0-18.0) g/dL Hct (42-52) % MCV (80-100) fL MCH (25-34) pg MCHC (32-36) g/dL RDW Std Deviation (36.4-46.3) fL RDW Coeff of [place] (11.5-14.5) % Plt Count (130-400) K/uL MPV (7.4-10.4) fL Immature Gran % (Auto) % Neut % (Auto) % Lymph % (Auto) % [place] % (Auto) % Eos % (Auto) % Baso % (Auto) % Neut # (Auto) (1.4-6.5) K/uL Lymph # (Auto) (1.2-3.4) K/uL [place] # (Auto) (0.11-0.59) K/uL Eos # (Auto) (0-0.5) K/uL Baso # (Auto) (0-0.2) K/uL Immature Gran # (Auto) (0.00-0.02) K/uL Sodium (136-145) mmol/L Potassium (3.5-5.1) mmol/L Chloride (98-107) mmol/L Carbon Dioxide (21-32) mmol/L Anion Gap (3-11) BUN (6-23) mg/dl Creatinine (0.6-1.4) mg/dl Est Cr Clr Drug Dosing ml/min Est GFR ( Amer) ml/min Est GFR (Non-Af Amer) ml/min BUN/Creatinine Ratio (10-20) Glucose (70-99(Fasting)) mg/dl Calcium (8.5-10.1) mg/dl Total Bilirubin (0.2-1.0) mg/dl AST (13-39) U/L ALT (7-52) U/L Alkaline Phosphatase (34-104) U/L Total Protein (6.0-8.3) gm/dl Albumin (3.4-5.0) gm/dl Globulin (2.5-4.0) gm/dl Albumin/Globulin Ratio (0.9-2) TSH (0.300-4.500) uIu/ml Urine Color Urine Appearance (Clear) Urine pH (4.5-7.5) Ur Specific [place] (1.000-1.030) Urine Protein (Negative) Urine Glucose (UA) (Negative) Urine Ketones (Negative) Urine Blood (Negative) Urine Nitrite (Negative) Urine Bilirubin (Negative) Urine Urobilinogen (Negative) Ur Leukocyte Esterase (Negative) Salicylates (3.0-30) mg/dl Urine Opiates Screen Neg (Neg) Ur Methadone, Qual Neg (Neg) Acetaminophen (10-30) ug/ml Urine Barbiturates Neg (Neg) Ur Phencyclidine (PCP) Neg (Neg) U Amphetamin/Meth Scrn Neg (Neg) MDMA (Ecstasy) Screen Neg (Neg) U Benzodiazepines Scrn Neg (Neg) Ur Cocaine Metabolite Neg (Neg) U Marijuana (THC) Screen Neg (Neg) Ethyl Alcohol mg/dL (<10.0) mg/dl SARS-CoV-2, RNA, NAAT NEGATIVE (NEGATIVE) Administered Medications Discontinued Medications Chlordiazepoxide HCl (Chlordiazepoxide Hcl 25 Mg Cap) 50 mg PO NOW ONE Stop: 12/29/21 12:41 Last Admin: 12/29/21 13:20 Dose: 50 mg Documented by: [id number] Sodium Chloride (Nss) 500 mls @ 999 mls/hr IV .Q31M ARABELLA Stop: 12/29/21 13:15 Last Infusion: 12/29/21 14:28 Dose: 0 mls/hr Documented by: [id number] Admin: 12/29/21 13:28 Dose: 999 mls/hr Documented by: [id number] Multivitamins 10 ml/ Thiamine HCl 100 mg/ Folic Acid 1 mg/Sodium Chloride 1,011.2 mls @ 1,011.2 mls/hr IV .Q1H ONE Stop: 12/29/21 13:39 Last Infusion: 12/29/21 14:27 Dose: 0 mls/hr Documented by: [id number] Admin: 12/29/21 13:21 Dose: 1,011.2 mls/hr Documented by: [id number] Famotidine (Pepcid 20mg Iv Push) 20 mg in 5 mls @ 2.5 mls/min IV NOW STA Stop: 12/29/21 12:41 Last Admin: 12/29/21 13:21 Dose: 2.5 mls/min Documented by: [id number] Lorazepam (Lorazepam 2 Mg/1 Ml Vial) 1 mg IV NOW STA Stop: 12/29/21 12:41 Last Admin: 12/29/21 13:20 Dose: 1 mg Documented by: [id number] Ondansetron HCl (Ondansetron Inj 2 Mg/Ml 2 Ml Vial) 4 mg IV NOW STA Stop: 12/29/21 12:41 Last Admin: 12/29/21 13:20 Dose: 4 mg Documented by: [id number] Pantoprazole Sodium (Pantoprazole 40 Mg Tab) 40 mg PO NOW STA Stop: 12/29/21 12:41 Last Admin: 12/29/21 13:20 Dose: 40 mg Documented by: [id number] Imaging Data Radiologist's Impression: Abdomen Ultrasound 12/29/21 15:13 US abdomen ltd ascites CLINICAL HISTORY: Abdominal distention. Assess for ascites COMPARISON STUDY: None. FINDINGS: Transabdominal scanning of the abdomen was performed with practice representative images submitted. No ascites identified. The liver is enlarged measuring 20 cm in length and demonstrates fatty change. IMPRESSION: 1. No ascites. 2. Hepatomegaly demonstrating fatty change. ACT 112: Negative or not required by law. Electronically signed by: Felipe Hilario M.D. 12/29/2021 4:31 PM Discharge Plan Visit Data Chief Complaint: Detox Request Stated Complaint: ALCOHOL DETOX ED Provider: Naif Wiggins Discharge Problem: Alcohol withdrawal, Alcohol abuse, Vomiting Patient Disposition: Admitted As Inpatient Condition: Fair Forms Stand Alone Forms: My [facility] [employer], Suicide Prevention Resources Prescriptions Prescriptions: No Action lisinopril 20 mg Tablet 20 mg PO DAILY RF: 0 omeprazole 20 mg Tablet,Delayed Release (Dr/Ec) 40 mg PO DAILY RF: 0 clonidine HCl 0.1 mg tablet 0.1 mg PO BID Qty: 0 RF: 0 vitamin B complex Tablet Extended Release 1 tab PO DAILY RF: 0 cholecalciferol (vitamin D3) 10 mcg (400 unit) Tablet,Chewable 20 mcg PO DAILY RF: 0 atorvastatin [Lipitor] 40 mg Tablet 40 mg PO HS RF: 0 Referrals Referrals: [facility],Medicine [Primary Care Provider] -
[2021-12-29 13:06] LABS: Basophils # (auto) 0.02 K/uL (0-0.2); Basophils % (auto) 0.4 %; Eosinophils # (auto) 0.07 K/uL (0-0.5); Eosinophils % (auto) 1.4 %; Hematocrit (blood only) 45.7 % (42-52); Hemoglobin 17.1 g/dL (14.0-18.0); Immature Granulocytes # (auto) 0.01 K/uL (0.00-0.02); Immature Granulocytes % (auto) 0.2 %; Lymphocytes # (auto) 1.76 K/uL (1.2-3.4); Lymphocytes % (auto) 34.9 %; Mean Corpuscular Hemoglobin 34.1 pg (25-34); Mean Corpuscular Hgb Conc 37.4 g/dL (32-36); Mean Platelet Volume 9.9 fL (7.4-10.4); Monocytes # (auto) 0.52 K/uL (0.11-0.59); Monocytes % (auto) 10.3 %; Neutrophils # (auto) 2.67 K/uL (1.4-6.5); Neutrophils % (auto) 52.8 %; Platelet Count 180 K/uL (130-400); RDW Coefficient of Variation 12.4 % (11.5-14.5); RDW Standard Deviation 41.7 fL (36.4-46.3); Red Blood Count 5.02 M/uL (4.7-6.1); White Blood Count 5.05 K/uL (4.8-10.8)
[2021-12-29 13:30] LABS: Albumin Globulin Ratio 1.5 (0.9-2); Albumin Level 4.7 gm/dl (3.4-5.0); BUN Creatinine Ratio 13.3 (10-20); Bilirubin,Total 0.9 mg/dl (0.2-1.0); Calcium 9.4 mg/dl (8.5-10.1); Creatinine Clr Calc Pharmacy 107.8 ml/min; Est GFR (African American) 110.1 ml/min; Globulin 3.1 gm/dl (2.5-4.0); Potassium 3.8 mmol/L (3.5-5.1); Total Protein 7.8 gm/dl (6.0-8.3)
[2021-12-29 13:52] LABS: Acetaminophen < 3 ug/ml (10-30); Salicylate < 3.0 mg/dl (3.0-30)
[2021-12-29 14:56] LABS: Appearance Urine Clear (Clear); Bilirubin Urine Negative (Negative); Blood Urine Negative (Negative); Color Urine Yellow; Glucose Urine UA Negative (Negative); Ketones Urine Negative (Negative); Leukocyte Esterase Urine Negative (Negative); Nitrite Urine Negative (Negative); Protein Urine Negative (Negative); Specific Gravity Urine 1.004 (1.000-1.030); Urobilinogen Urine Negative (Negative)
[2021-12-29 15:27] LABS: Amphetamines+Metham, Urine Neg (Neg); Barbiturates, Urine Neg (Neg); Benzodiazepine, Urine Neg (Neg); Cocaine, Urine Neg (Neg); MDMA (Ecstacy), Urine Neg (Neg); Methadone, Urine Neg (Neg); Opiate, Urine Neg (Neg); Phencyclidine, Urine Neg (Neg)
--- NOTE | 2021-12-29 16:14 | Electrocardiogram Report ---
Test Reason : Blood Pressure : / mmHG Vent. Rate : 078 BPM Atrial Rate : 078 BPM P-R Int : 164 ms QRS Dur : 092 ms QT Int : 374 ms P-R-T Axes : 060 046 048 degrees QTc Int : 426 ms Normal sinus rhythm Normal ECG When compared with ECG of 27-OCT-2021 10:41, No significant change was found Confirmed by Unruly Bishop ([id number]) on 12/29/2021 4:14:17 PM Referred By: Confirmed By:Chuy Bishop
--- NOTE | 2021-12-29 16:32 | Ultrasound Report ---
US abdomen ltd ascites CLINICAL HISTORY: Abdominal distention. Assess for ascites COMPARISON STUDY: None. FINDINGS: Transabdominal scanning of the abdomen was performed with insurance representative images submitted. No ascites identified. The liver is enlarged measuring 20 cm in length and demonstrates fatty change. IMPRESSION: 1. No ascites. 2. Hepatomegaly demonstrating fatty change. ACT 112: Negative or not required by law. Electronically signed by: Felipe Hilario M.D. 12/29/2021 4:31 PM
--- NOTE | 2021-12-29 18:31 | History & Physical Report ---
Date of Service December 29, 2021 Assessment & Plan (1) Alcohol withdrawal: Plan: Admit to telemetry Patient presenting from home with request of alcohol detox. Patient reports a longstanding history of alcohol abuse, has been drinking a 30 pack of beer over the past 5 to 6 months. Reports he has gone to rehab in the past and is willing to try again. Patient states that he has been in contact with Shawn at [facility] who has been working on arranging rehab placement. Given abdominal distention on exam, ultrasound was obtained to evaluate for ascites which was negative for ascites Mild LFT elevation noted (AST 77, ALT 66) Alcohol withdrawal protocol with gabapentin, as needed Ativan Thiamine, folic acid (2) Hypertension: Plan: Continue lisinopril and clonidine (3) Dyslipidemia: Plan: Continue statin (4) GERD (gastroesophageal reflux disease): Plan: Continue PPI (5) DVT prophylaxis: Plan: SCDs for now History of Present Illness Chief Complaint: Alcohol detox Primary Care Provider: [facility] 61-year-old male with PMH alcohol abuse, GERD, HTN, dyslipidemia, and other problems to below who presents to the ED for request of alcohol detox. Patient reports a longstanding history of alcohol abuse. Reports that he has been drinking a 30 pack of beer per day for the past 5 to 6 months. Patient reports that he has been rehab in the past and is willing to try again. Patient reports that over the past 5 days he has had nausea and vomiting. He denies abdominal pain and reports chronic diarrhea from drinking beer. Denies hematemesis, coffee-ground emesis, bright red bleeding per rectum, dark tarry stools. Reports that his last drink was right before coming to the hospital. Patient denies alcohol withdrawal seizure in the past. No chest pain or shortness of breath. Denies lightheadedness, dizziness, diaphoresis, syncopal events. No other recent illnesses, fevers, chills. Denies urinary symptoms. In the ED, labs show alcohol level 95.4, otherwise unremarkable. Patient is he modynamically stable. He was given Librium p.o., IV famotidine, IV lorazepam 1 mg, banana bag, IV Zofran, p.o. Protonix. Allergies Allergy/AdvReac Type Severity Reaction Status Date / Time No Known Allergies Allergy Verified 12/29/21 15:05 Home Medications Medication Instructions Recorded Confirmed Type lisinopril 20 mg tablet 20 mg PO DAILY 03/16/20 12/29/21 History omeprazole 20 mg tablet,delayed 40 mg PO DAILY 03/16/20 12/29/21 History release clonidine HCl 0.1 mg tablet 0.1 mg PO BID #0 tab 03/19/20 12/29/21 Rx cholecalciferol (vitamin D3) 10 20 mcg PO DAILY 06/02/20 12/29/21 History mcg (400 unit) chewable tablet vitamin B complex 1 tab PO DAILY 12/08/20 12/29/21 History atorvastatin 40 mg tablet (Lipitor) 40 mg PO HS 12/29/21 12/29/21 History Past Med/Surg History Medical History Alcohol dependence Anxiety Depression Dyslipidemia GERD (gastroesophageal reflux disease) Hypertension Smoker Suicidal thoughts Surgical History No history of previous surgery Family History Father , age 70 from [place] Coronary heart disease Social History (Updated 12/29/21 @ 18:25 by GEOVANY Duran) Smoking Status: Current every day smoker Tobacco Type: Cigarettes Second Hand Exposure: Yes; Hx Alcohol Use: Yes Alcohol type: beer Hx Substance Use: No Preferred Language: Australian Communication Ability: Effective Sterile Supervisor Required: No Beliefs That Will Affect Care: None marital status: Current Living Situation: Alone Current Living Situation Comment: pt states lives in large farmhouse where two brothers unrelated to him live Feels Safe at Home: Yes Assistive Devices: None Review of Systems Review of Systems: ROS per HPI, all other systems reviewed and negative Physical Exam Constitutional: WD/WN, vitals as above Eyes: PERRL, conjunctivae normal, anicteric sclerae ENMT: external ear and nose normal, oropharynx normal Respiratory: normal respiratory effort, lungs clear to auscultation Cardiovascular: Rate/Rhythm: regular rate and regular rhythm Vessels: normal peripheral pulses Extremities: no edema Gastrointestinal (Abdomen): Inspection/Auscultation: + abdomen distended (Semifirm) and normal bowel sounds Percussion/Palpation: abdomen nontender and no hepatosplenomegaly Musculoskeletal: no cyanosis or clubbing, extremities motor strength 5/5 Skin: no rashes, warm and dry Neurologic: PERRL, EOMI, accommodation nl, no face palsy, no dysarthria Motor/Sensory: + tremor (Mild tremor noted with outstretched hands) Psychiatric: A+Ox3, euthymic affect Results & Data Results & Data ([facility]) Vital Signs (Past 12 Hours) Vital Signs Temp Pulse Resp BP BP Pulse Ox 12/29/21 16:39 150/86 H 12/29/21 16:30 78 37 H 97 12/29/21 16:00 82 18 12/29/21 15:30 75 25 H 96 12/29/21 15:00 85 18 12/29/21 14:30 78 20 12/29/21 13:30 79 15 97 12/29/21 13:00 78 23 93 12/29/21 12:25 150/86 H 12/29/21 12:05 36.5 C 81 20 160/88 H 96 Laboratory Results Short CBC 12/29/21 Range/Units 12:52 WBC 5.05 (4.8-10.8) K/uL Hgb 17.1 (14.0-18.0) g/dL Hct 45.7 (42-52) % Plt Count 180 (130-400) K/uL BMP 12/29/21 12:52 Sodium 135 L Potassium 3.8 Chloride 102 Carbon Dioxide 22 BUN 11 Creatinine 0.83 Glucose 101 H Calcium 9.4 Liver Function 12/29/21 Range/Units 12:52 Total Bilirubin 0.9 (0.2-1.0) mg/dl AST 77 H (13-39) U/L ALT 66 H (7-52) U/L Alkaline Phosphatase 86 (34-104) U/L Albumin 4.7 (3.4-5.0) gm/dl Urine 12/29/21 Range/Units Unknown Urine Color Yellow Urine Appearance Clear (Clear) Urine pH 5.0 (4.5-7.5) Ur Specific [place] 1.004 (1.000-1.030) Urine Protein Negative (Negative) Urine Glucose (UA) Negative (Negative) Diagnostic Findings Abdomen Ultrasound 12/29/21 15:13 US abdomen ltd ascites CLINICAL HISTORY: Abdominal distention. Assess for ascites COMPARISON STUDY: None. FINDINGS: Transabdominal scanning of the abdomen was performed with inventory representative images submitted. No ascites identified. The liver is enlarged measuring 20 cm in length and demonstrates fatty change. IMPRESSION: 1. No ascites. 2. Hepatomegaly demonstrating fatty change. ACT 112: Negative or not required by law. Electronically signed by: Felipe Hilario M.D. 12/29/2021 4:31 PM Code Status & VTE Plan VTE Prophylaxis Plan VTE Prophylaxis will be ordered: Yes Supervising Physician Co-Signing Physician Notes I have seen and examined the patient and have discussed the case with the provider above. I agree with the assessment and plan as stated. See separate attending addendum note. DO Girma (1) Alcohol withdrawal Complication of substance-induced condition: with unspecified complication Qualified Code(s): F10.239 - Alcohol dependence with withdrawal, unspecified (2) GERD (gastroesophageal reflux disease) Esophagitis presence: esophagitis presence not specified Qualified Code(s): K21.9 - Gastro-esophageal reflux disease without esophagitis (3) Hypertension Hypertension type: unspecified Qualified Code(s): I10 - Essential (primary) hypertension
--- NOTE | 2021-12-29 18:34 | Communication Note ---
Date of Service: December 29, 2021 ATTENDING ADDENDUM: 61 yo M presents with abdominal discomfort after chronic daily drinking requesting detox. He takes in 1 case of beer daily with last drink the the last 24 hours. He reports some vomiting without blood in the emesis and has no change in stools. Feels better after initial therapy in the ER including Librium 50mg. Physical exam reveals a calm, WNWD man in NAD. Normal heart and lung exam. Abdomen is soft, NTND, no guarding. Skin is warm and dry. He is not tremulous and has no gross focal neuro or strength deficits. Labwork reveals mildly elevated LFTs and CBC, CMP is otherwise within normal limits. Abdominal ultrasound reveals no ascites and evidence of fatty liver. 1. Alcohol intoxication and alcohol withdrawal. This patient is feeling better and is requesting help through his withdrawal with a plan to attend inpatient rehab for alcohol use. Cont plan above for supportive care. DO Girma
[2021-12-29] MEDS ORDERED: GABAPENTIN 600 MG TAB PO ONE (18:37)
[2021-12-29] MEDS ORDERED: ACETAMINOPHEN 325 MG TAB PO PRN (18:37)
[2021-12-29] MEDS ORDERED: LORazepam 2 MG/1 ML VIAL IV PRN ×3 (18:37)
[2021-12-29] MEDS ORDERED: GABAPENTIN 1200MG ALCOHOL WITHDRAWAL LOAD PO STA (18:37)
[2021-12-29] MEDS ORDERED: ATIVAN IV ALCOHOL WITHDRAWL IV PRN (18:37)
[2021-12-29] MEDS: THIAMINE HCL 100 MG TAB PO SCH (19:16)
[2021-12-29] MEDS: FOLIC ACID 1 MG in SYRINGE 9.8 ML IV SCH (19:17)
[2021-12-29] MEDS: SODIUM CHLORIDE 0.9% 1000ML 1,000 ML IV SCH (19:18)
[2021-12-29] MEDS: cloNIDine HCL 0.1 MG TAB PO SCH (21:39)
[2021-12-29] MEDS: ATORVASTATIN 40 MG TAB PO SCH (21:39)
[2021-12-30] MEDS: GABAPENTIN 600 MG TAB PO SCH ×4 (00:32→21:39)
[2021-12-30] MEDS: SODIUM CHLORIDE 0.9% 1000ML 1,000 ML IV SCH (05:23)
[2021-12-30 05:30] LABS: Hematocrit (blood only) 45.2 % (42-52); Hemoglobin 16.2 g/dL (14.0-18.0); Mean Corpuscular Hemoglobin 33.8 pg (25-34); Mean Corpuscular Hgb Conc 35.8 g/dL (32-36); Mean Corpuscular Volume 94.4 fL (80-100); Platelet Count 149 K/uL (130-400); RDW Coefficient of Variation 12.4 % (11.5-14.5); RDW Standard Deviation 42.7 fL (36.4-46.3); Red Blood Count 4.79 M/uL (4.7-6.1); White Blood Count 5.93 K/uL (4.8-10.8)
[2021-12-30 06:01] LABS: BUN Creatinine Ratio 10.3 (10-20); Calcium 8.6 mg/dl (8.5-10.1); Creatinine Clr Calc Pharmacy 102.9 ml/min; Est GFR (Non-African American) 93.2 ml/min
[2021-12-30] MEDS: cloNIDine HCL 0.1 MG TAB PO SCH ×2 (07:38→21:39)
[2021-12-30] MEDS: FOLIC ACID 1 MG in SYRINGE 9.8 ML IV SCH (07:38)
[2021-12-30] MEDS: lisinopril 20 MG TAB PO SCH (07:38)
[2021-12-30] MEDS: THIAMINE HCL 100 MG TAB PO SCH (07:38)
[2021-12-30] MEDS: NICOTINE 21 MG/24 HR TDSY TD SCH (07:38)
[2021-12-30] MEDS: PANTOprazole 40 MG TAB PO SCH (07:38)
[2021-12-30] MEDS: HEPARIN SOD 5,000 UNIT/0.5 ML VIAL SQ SCH ×2 (11:00→21:38)
--- NOTE | 2021-12-30 13:14 | Hospitalist Progress Note ---
Date of Service December 30, 2021 Assessment & Plan (1) Alcohol withdrawal: (2) Alcohol dependence: Plan: #. Impending alcohol withdrawal: Admitted 12/29 with request of alcohol detox, last drink 12/29/2021. History of longstanding alcohol abuse, had multiple relapses in the past per patient [2-3] Patient had been drinking heavily since last 5 to 6 months with up to 30 packs of beer a day. Patient denies of history of seizure in the past. Patient stated that he has been in contact with Shawn at [facility] who has been working on arranging rehab placement. Mild AST and ALT elevation at admission, admitting USG positive for fatty change in liver/negative for ascites. Continue with telemetry care Continue with Alcohol withdrawal protocol with gabapentin, as needed Ativan Continue with thiamine, folic acid #. Other chronic medical conditions: HTN, HLD, GERD Continue with/resume home meds as and when appropriate. Home medslisinopril, clonidine, statin, PPI #. DVT prophylaxis: Heparin subcu Disposition: to assist with DC planning, expect discharge in 4 days when out of withdrawal window. Admission and Anticipated Discharge Date Admission Date: December 29, 2021 Subjective Patient seen and examined at bedside as a follow-up of impending alcohol withdrawal. Patient wants to quit drinking, has been a heavy drinker lately, has had multiple relapses in the past. Last alcoholic drink 12/30/2021. Patient lying in bed, on room air, NAD, no new acute events overnight. Patient reports eating okay and moving bowels okay. Patient denies any fever/headache/chills/chest pain/tremor/belly pain/anxiety/other review of symptoms. Physical Exam Physical Exam: GENERAL: Alert and oriented x3. NAD, on RA. HEENT: No pallor, no icterus. Pupils equal, round and reactive to light. Oral mucosa moist. NECK: No JVD, no neck masses. HEART: S1 and S2 heard. Regular rate and rhythm. No murmur, no gallop. RESPIRATORY SYSTEM: Normal AP diameter. No accessory muscle use. No wheezing, no crackles. ABDOMEN: Soft, bowel sounds present, nontender, no distention. CENTRAL NERVOUS SYSTEM: No facial droop. Speech is clear. Obeys simple commands. Moves extremities. EXTREMITIES: No edema, no erythema seen. No tremors noted. Results & Data Results & Data ([facility]) Vital Signs (Past 12 Hours) Vital Signs Temp Pulse Pulse Resp BP Pulse Ox 12/30/21 11:00 37.1 C 78 18 128/90 96 12/30/21 08:00 37.1 C 72 72 20 163/106 H 94 (1) Alcohol withdrawal Complication of substance-induced condition: with unspecified complication Qualified Code(s): F10.239 - Alcohol dependence with withdrawal, unspecified (2) Alcohol dependence Complication of substance-induced condition: uncomplicated Substance use status: in withdrawal Qualified Code(s): F10.230 - Alcohol dependence with withdrawal, uncomplicated
[2021-12-30] MEDS ORDERED: hydrALAZINE HCL 20 MG/ML VIAL IV STA (13:15)
[2021-12-30] MEDS: ATORVASTATIN 40 MG TAB PO SCH (21:39)
[2021-12-31] MEDS: GABAPENTIN 600 MG TAB PO SCH ×2 (05:10→17:50)
[2021-12-31 05:57] LABS: BUN Creatinine Ratio 11.8 (10-20); Calcium 8.7 mg/dl (8.5-10.1); Magnesium 2.1 mg/dl (1.7-2.4); Phosphorus 2.9 mg/dl (2.5-4.9); Potassium 3.3 mmol/L (3.5-5.1)
[2021-12-31] MEDS: THIAMINE HCL 100 MG TAB PO SCH (07:50)
[2021-12-31] MEDS: lisinopril 20 MG TAB PO SCH (07:50)
[2021-12-31] MEDS: cloNIDine HCL 0.1 MG TAB PO SCH ×2 (07:50→19:59)
[2021-12-31] MEDS: PANTOprazole 40 MG TAB PO SCH (07:50)
[2021-12-31] MEDS ORDERED: POTASSIUM CHLORIDE CRTAB 20 MEQ TABCR PO STA (07:51)
[2021-12-31] MEDS: HEPARIN SOD 5,000 UNIT/0.5 ML VIAL SQ SCH ×2 (07:51→20:00)
[2021-12-31] MEDS: NICOTINE 21 MG/24 HR TDSY TD SCH (07:55)
[2021-12-31] MEDS: FOLIC ACID 1 MG in SYRINGE 9.8 ML IV SCH (07:56)
[2021-12-31] MEDS ORDERED: ALUMINUM/MAGNESIUM SUSP 30 ML UDC PO STA (11:10)
[2021-12-31] MEDS ORDERED: ALUMINUM/MAGNESIUM SUSP 30 ML UDC PO PRN (16:59)
--- NOTE | 2021-12-31 17:02 | Hospitalist Progress Note ---
Date of Service December 31, 2021 Assessment & Plan (1) Alcohol withdrawal: (2) Alcohol dependence: Plan: #. Impending alcohol withdrawal: Admitted 12/29 with request of alcohol detox, last drink 12/29/2021. History of longstanding alcohol abuse, had multiple relapses in the past per patient [2-3] Patient had been drinking heavily since last 5 to 6 months with up to 30 packs of beer a day. Patient denies of history of seizure in the past. Patient stated that he has been in contact with Shawn at [facility] who has been working on arranging rehab placement. Mild AST and ALT elevation at admission, admitting USG positive for fatty change in liver/negative for ascites. Pt made aware. Continue with telemetry care Continue with Alcohol withdrawal protocol Continue with thiamine, folic acid #. Other chronic medical conditions: HTN, HLD, GERD Continue with/resume home meds as and when appropriate. Home medslisinopril, clonidine, statin, PPI Counselled against nicotine and alcohol abuse in future, patient agreeable. #. DVT prophylaxis: Heparin subcu Disposition: CM to assist with DC planning, expect discharge in 3 days when out of withdrawal window. Admission and Anticipated Discharge Date Admission Date: December 29, 2021 Subjective Patient seen and examined at bedside as a follow-up of impending alcohol withdrawal. Patient wants to quit drinking, has been a heavy drinker lately, has had multiple relapses in the past. Last alcoholic drink 12/29/2021. Patient lying in bed, on room air, NAD, no new acute events overnight. Patient reports eating okay and moving bowels okay. Patient denies any fever/headache/chills/chest pain/tremor/belly pain/anxiety/other review of symptoms. Physical Exam Physical Exam: GENERAL: Alert and oriented x3. NAD, on RA. HEENT: No pallor, no icterus. Pupils equal, round and reactive to light. Oral mucosa moist. NECK: No JVD, no neck masses. HEART: S1 and S2 heard. Regular rate and rhythm. No murmur, no gallop. RESPIRATORY SYSTEM: Normal AP diameter. No accessory muscle use. No wheezing, no crackles. ABDOMEN: Soft, bowel sounds present, nontender, no distention. CENTRAL NERVOUS SYSTEM: No facial droop. Speech is clear. Obeys simple commands. Moves extremities. EXTREMITIES: No edema, no erythema seen. No tremors noted. Results & Data Results & Data ([facility]) Vital Signs (Past 12 Hours) Vital Signs Temp Pulse Resp BP BP Pulse Ox 12/31/21 12:27 37.1 C 98 H 20 140/80 94 12/31/21 07:38 36.9 C 70 18 143/90 H 96 (1) Alcohol withdrawal Complication of substance-induced condition: with unspecified complication Qualified Code(s): F10.239 - Alcohol dependence with withdrawal, unspecified (2) Alcohol dependence Complication of substance-induced condition: uncomplicated Substance use status: in withdrawal Qualified Code(s): F10.230 - Alcohol dependence with withdrawal, uncomplicated
[2021-12-31] MEDS: ATORVASTATIN 40 MG TAB PO SCH (19:59)
[2022-01-01] MEDS: GABAPENTIN 600 MG TAB PO SCH (04:50)
[2022-01-01 07:12] LABS: BUN Creatinine Ratio 11.2 (10-20); Calcium 9.6 mg/dl (8.5-10.1); Creatinine Clr Calc Pharmacy 97.5 ml/min; Est GFR (Non-African American) 92.3 ml/min; Magnesium 2.1 mg/dl (1.7-2.4); Phosphorus 3.1 mg/dl (2.5-4.9); Potassium 4.1 mmol/L (3.5-5.1)
[2022-01-01] MEDS: cloNIDine HCL 0.1 MG TAB PO SCH ×2 (08:19→21:35)
[2022-01-01] MEDS: FOLIC ACID 1 MG in SYRINGE 9.8 ML IV SCH (08:19)
[2022-01-01] MEDS: THIAMINE HCL 100 MG TAB PO SCH (08:19)
[2022-01-01] MEDS: lisinopril 20 MG TAB PO SCH (08:19)
[2022-01-01] MEDS: HEPARIN SOD 5,000 UNIT/0.5 ML VIAL SQ SCH ×2 (08:20→20:49)
[2022-01-01] MEDS: PANTOprazole 40 MG TAB PO SCH (08:20)
[2022-01-01] MEDS: NICOTINE 21 MG/24 HR TDSY TD SCH (08:20)
--- NOTE | 2022-01-01 17:04 | Hospitalist Progress Note ---
Date of Service January 01, 2022 Assessment & Plan (1) Alcohol withdrawal: (2) Alcohol dependence: Plan: #. Impending alcohol withdrawal: Admitted 12/29 with request of alcohol detox, last drink 12/29/2021. History of longstanding alcohol abuse, had multiple relapses in the past per patient [2-3] Patient had been drinking heavily since last 5 to 6 months with up to 30 packs of beer a day. Patient denies of history of seizure in the past. Patient stated that he has been in contact with Shawn at [facility] who has been working on arranging rehab placement. Stated that he is going to rehab on January. Mild AST and ALT elevation at admission, admitting USG positive for fatty change in liver/negative for ascites. Pt made aware. Continue with telemetry care Continue with Alcohol withdrawal protocol Continue with thiamine, folic acid #. Other chronic medical conditions: HTN, HLD, GERD Continue with/resume home meds as and when appropriate. Home medslisinopril, clonidine, statin, PPI Counselled against nicotine and alcohol abuse in future, patient agreeable. #. DVT prophylaxis: Heparin subcu Disposition: CM to assist with DC planning, expect discharge in 2 days when out of withdrawal window. Admission and Anticipated Discharge Date Admission Date: December 29, 2021 Subjective Patient seen and examined at bedside as a follow-up of impending alcohol withdrawal. Patient wants to quit drinking, has been a heavy drinker lately, has had multiple relapses in the past. Last alcoholic drink 12/29/2021. Patient lying in bed, on room air, NAD, no new acute events overnight. Patient reports eating okay and moving bowels okay. Patient denies any fever/headache/chills/chest pain/tremor/belly pain/anxiety/other review of symptoms. Physical Exam Physical Exam: GENERAL: Alert and oriented x3. NAD, on RA. HEENT: No pallor, no icterus. Pupils equal, round and reactive to light. Oral mucosa moist. NECK: No JVD, no neck masses. HEART: S1 and S2 heard. Regular rate and rhythm. No murmur, no gallop. RESPIRATORY SYSTEM: Normal AP diameter. No accessory muscle use. No wheezing, no crackles. ABDOMEN: Soft, bowel sounds present, nontender, no distention. CENTRAL NERVOUS SYSTEM: No facial droop. Speech is clear. Obeys simple commands. Moves extremities. EXTREMITIES: No edema, no erythema seen. No tremors noted. Results & Data Results & Data ([facility]) Vital Signs (Past 12 Hours) Vital Signs Temp Pulse Pulse Resp BP Pulse Ox 01/01/22 15:38 36.8 C 73 18 148/80 H 96 01/01/22 11:18 36.7 C 67 17 143/79 H 97 01/01/22 07:41 73 01/01/22 07:25 36.5 C 64 20 156/89 H 98 (1) Alcohol withdrawal Complication of substance-induced condition: with unspecified complication Qu alified Code(s): F10.239 - Alcohol dependence with withdrawal, unspecified (2) Alcohol dependence Complication of substance-induced condition: uncomplicated Substance use status: in withdrawal Qualified Code(s): F10.230 - Alcohol dependence with withdrawal, uncomplicated
[2022-01-01] MEDS: ATORVASTATIN 40 MG TAB PO SCH (20:51)
[2022-01-02] MEDS ORDERED: GABAPENTIN 600 MG TAB PO SCH (06:00)
[2022-01-02 07:04] LABS: Anion Gap 8 (3-11); BUN Creatinine Ratio 12.3 (10-20); Blood Urea Nitrogen 10 mg/dl (6-23); Calcium 9.1 mg/dl (8.5-10.1); Carbon Dioxide 26 mmol/L (21-32); Chloride 103 mmol/L (98-107); Creatinine Clr Calc Pharmacy 108.9 ml/min; Est GFR (African American) 111.2 ml/min; Est GFR (Non-African American) 95.9 ml/min; Glucose 148 mg/dl (70-99(Fasting)); Sodium 137 mmol/L (136-145)
[2022-01-02] MEDS: lisinopril 20 MG TAB PO SCH (08:18)
[2022-01-02] MEDS: FOLIC ACID 1 MG in SYRINGE 9.8 ML IV SCH (08:18)
[2022-01-02] MEDS: THIAMINE HCL 100 MG TAB PO SCH (08:18)
[2022-01-02] MEDS: PANTOprazole 40 MG TAB PO SCH (08:18)
[2022-01-02] MEDS: NICOTINE 21 MG/24 HR TDSY TD SCH (08:19)
[2022-01-02] MEDS: HEPARIN SOD 5,000 UNIT/0.5 ML VIAL SQ SCH ×2 (08:19→20:24)
[2022-01-02] MEDS: cloNIDine HCL 0.1 MG TAB PO SCH ×2 (08:30→20:23)
--- NOTE | 2022-01-02 17:38 | Hospitalist Progress Note ---
Date of Service January 02, 2022 Assessment & Plan (1) Alcohol withdrawal: (2) Alcohol dependence: Plan: #. Impending alcohol withdrawal: Admitted 12/29 with request of alcohol detox, last drink 12/29/2021. History of longstanding alcohol abuse, had multiple relapses in the past per patient [2-3] Patient had been drinking heavily since last 5 to 6 months with up to 30 packs of beer a day. Patient denies of history of seizure in the past. Patient stated that he has been in contact with Shawn at [facility] who has been working on arranging rehab placement. Stated that he is going to rehab on January. Pt reports having bad withdrawal in the past but denies any seizure history. Mild AST and ALT elevation at admission, admitting USG positive for fatty change in liver/negative for ascites. Pt made aware. Continue with telemetry care Continue with Alcohol withdrawal protocol Continue with thiamine, folic acid #. Other chronic medical conditions: HTN, HLD, GERD Continue with/resume home meds as and when appropriate. Home medslisinopril, clonidine, statin, PPI Counselled against nicotine and alcohol abuse in future, patient agreeable. #. DVT prophylaxis: Heparin subcu Disposition: CM to assist with DC planning, expect discharge likely tomorrow. Admission and Anticipated Discharge Date Admission Date: December 29, 2021 Subjective Patient seen and examined at bedside as a follow-up of impending alcohol withdrawal. Patient wants to quit drinking, has been a heavy drinker lately, has had multiple relapses in the past. Last alcoholic drink 12/29/2021. Patient lying in bed, on room air, NAD, no new acute events overnight. Patient reports eating okay and moving bowels okay. Patient denies any fever/headache/chills/chest pain/tremor/belly pain/anxiety/other review of symptoms. Physical Exam Physical Exam: GENERAL: Alert and oriented x3. NAD, on RA. HEENT: No pallor, no icterus. Pupils equal, round and reactive to light. Oral mucosa moist. NECK: No JVD, no neck masses. HEART: S1 and S2 heard. Regular rate and rhythm. No murmur, no gallop. RESPIRATORY SYSTEM: Normal AP diameter. No accessory muscle use. No wheezing, no crackles. ABDOMEN: Soft, bowel sounds present, nontender, no distention. CENTRAL NERVOUS SYSTEM: No facial droop. Speech is clear. Obeys simple commands. Moves extremities. EXTREMITIES: No edema, no erythema seen. No tremors noted. Results & Data Results [facility] ([facility]) Vital Signs (Past 12 Hours) Vital Signs Temp Pulse Pulse Resp BP Pulse Ox 01/02/22 16:00 36.9 C 75 18 145/82 H 97 01/02/22 14:52 78 01/02/22 12:00 36.9 C 88 18 129/80 95 01/02/22 08:00 36.5 C 66 74 18 159/78 H 97 (1) Alcohol withdrawal Complication of substance-induced condition: with unspecified complication Qualified Code(s): F10.239 - Alcohol dependence with withdrawal, unspecified (2) Alcohol dependence Complication of substance-induced condition: uncomplicated Substance use status: in withdrawal Qualified Code(s): F10.230 - Alcohol dependence with withdrawal, uncomplicated
[2022-01-02] MEDS: ATORVASTATIN 40 MG TAB PO SCH (20:24)
[2022-01-03 07:50] LABS: Calcium 9.8 mg/dl (8.5-10.1); Creatinine Clr Calc Pharmacy 98.7 ml/min; Est GFR (African American) 106.5 ml/min; Est GFR (Non-African American) 91.9 ml/min; Magnesium 1.9 mg/dl (1.7-2.4); Phosphorus 3.7 mg/dl (2.5-4.9)
[2022-01-03] MEDS: cloNIDine HCL 0.1 MG TAB PO SCH (08:04)
[2022-01-03] MEDS: HEPARIN SOD 5,000 UNIT/0.5 ML VIAL SQ SCH (08:04)
[2022-01-03] MEDS: THIAMINE HCL 100 MG TAB PO SCH (08:05)
[2022-01-03] MEDS: NICOTINE 21 MG/24 HR TDSY TD SCH (08:05)
[2022-01-03] MEDS: lisinopril 20 MG TAB PO SCH (08:05)
[2022-01-03] MEDS: PANTOprazole 40 MG TAB PO SCH (08:05)
[2022-01-03] MEDS: FOLIC ACID 1 MG in SYRINGE 9.8 ML IV SCH (08:07)
--- NOTE | 2022-01-03 09:54 | Discharge Summary ---
Date of Service January 03, 2022 Admission HPI Per Admitting Provider 61-year-old male with PMH alcohol abuse, GERD, HTN, dyslipidemia, and other problems to below who presents to the ED for request of alcohol detox. Patient reports a longstanding history of alcohol abuse. Reports that he has been drinking a 30 pack of beer per day for the past 5 to 6 months. Patient reports that he has been rehab in the past and is willing to try again. Patient reports that over the past 5 days he has had nausea and vomiting. He denies abdominal pain and reports chronic diarrhea from drinking beer. Denies hematemesis, coffee-ground emesis, bright red bleeding per rectum, dark tarry stools. Reports that his last drink was right before coming to the hospital. Patient denies alcohol withdrawal seizure in the past. No chest pain or shortness of breath. Denies lightheadedness, dizziness, diaphoresis, syncopal events. No other recent illnesses, fevers, chills. Denies urinary symptoms. In the ED, labs show alcohol level 95.4, otherwise unremarkable. Patient is hemodynamically stable. He was given Librium p.o., IV famotidine, IV lorazepam 1 mg, banana bag, IV Zofran, p.o. Protonix. Admission Exam Per Admitting Provider Constitutional: WD/WN, vitals as above Eyes: PERRL, conjunctivae normal, anicteric sclerae ENMT: external ear and nose normal, oropharynx normal Respiratory: normal respiratory effort, lungs clear to auscultation Cardiovascular: Rate/Rhythm: regular rate and regular rhythm Vessels: normal peripheral pulses Extremities: no edema Gastrointestinal (Abdomen): Inspection/Auscultation: + abdomen distended (Semifirm) and normal bowel sounds Percussion/Palpation: abdomen nontender and no hepatosplenomegaly Musculoskeletal: no cyanosis or clubbing, extremities motor strength 5/5 Skin: no rashes, warm and dry Neurologic: PERRL, EOMI, accommodation nl, no face palsy, no dysarthria Motor/Sensory: + tremor (Mild tremor noted with outstretched hands) Psychiatric: A+Ox3, euthymic affect Principal Diagnosis Alcohol abuse Impending alcohol withdrawal Discharge Exam GENERAL: Alert and oriented x3. NAD, on RA. HEENT: No pallor, no icterus. Pupils equal, round and reactive to light. Oral mucosa moist. NECK: No JVD, no neck masses. HEART: S1 and S2 heard. Regular rate and rhythm. No murmur, no gallop. RESPIRATORY SYSTEM: Normal AP diameter. No accessory muscle use. No wheezing, no crackles. ABDOMEN: Soft, bowel sounds present, nontender, no distention. CENTRAL NERVOUS SYSTEM: No facial droop. Speech is clear. Obeys simple commands. Moves extremities. EXTREMITIES: No edema, no erythema seen. No tremors noted. Discharge Data Allergies Allergy/AdvReac Type Severity Reaction Status Date / Time No Known Allergies Allergy Verified 12/29/21 15:05 Consultations 12/29/21 14:25 ED Decision to Admit Stat Ordered Studies 12/29/21 15:13 US abdomen ltd ascites Routine Hospital Course (1) Alcohol withdrawal: (2) Alcohol dependence: 61 yo M was managed for the following while in hospital: #. Impending alcohol withdrawal: Admitted 12/29 with request of alcohol detox, last drink 12/29/2021 AM. History of longstanding alcohol abuse, had multiple relapses in the past per patient [2-3] Patient had been drinking heavily since last 5 to 6 months with up to 30 packs of beer a day. Patient denies of history of seizure in the past. Patient stated that he has been in contact with Shawn at [facility] who has been working on arranging rehab placement. Stated that he is going to rehab on January. Advise to maintain that. Pt reports having bad withdrawal in the past but denies any seizure history. Mild AST and ALT elevation at admission, admitting USG positive for fatty change in liver/negative for ascites. Pt made aware. No withdrawal s/s, and no use of prn ativan. Continue with thiamine, folic acid DC to home and f/u with inpatient alc rehab #. Other chronic medical conditions: HTN, HLD, GERD Continue with/resume home meds as and when appropriate. Home medslisinopril, clonidine, statin, PPI Counselled against nicotine and alcohol abuse in future, patient agreeable. #. DVT prophylaxis: Heparin subcu Disposition: CM to assist with DC planning, expect discharge likely tomorrow. Patient being discharged home with a plan to follow-up with inpatient alcohol rehab on January 08, with following instructions at the point of discharge: Follow-up with your primary care physician within a week time. Maintain your appointment for inpatient alcohol rehab on January as discussed at the bedside. Advise strongly against any use of tobacco products or alcohol products in future. You will be discharged on nicotine patch, use 1 patch daily, can remove prior to going to bed if trouble with sleeping. Use the patch between shoulder and hip area, rotate the site every day. Take medications as prescribed. Total Time Total Time Spent Total Time Spent (In Minutes): 35 Discharge Plan Discharge Items Patient Disposition: Home - Self-Care Reason For Visit: ALCOHOL DETOX Discharge Diagnosis: Alcohol abuse Impending alcohol withdrawal Condition on Discharge: Fair Activity: Resume your previous activity Non-emergency contact: Primary Care Provider Call non-emergency contact if: you have any medication questions, your symptoms worsen and your temperature is above 101 Follow-up/Referrals: [facility],Medicine [Primary Care Provider] - Diet: Heart Healthy Addtl Attending Provider Instructions: Follow-up with your primary care physician within a week time. Maintain your appointment for inpatient alcohol rehab on January as discussed at the bedside. Advise strongly against any use of tobacco products or alcohol products in future. You will be discharged on nicotine patch, use 1 patch daily, can remove prior to going to bed if trouble with sleeping. Use the patch between shoulder and hip area, rotate the site every day. Take medications as prescribed. Pending Studies at Discharge: No Stand-Alone Forms: [facility], Smoking Cessation Medications and DC Order Prescriptions: New nicotine [Nicoderm CQ] 21 mg/24 hr Patch 24 Hour 21 mg transdermal QAM Qty: 28 RF: 0 thiamine HCl (vitamin B1) 100 mg Tablet 100 mg PO QAM Qty: 30 RF: 0 folic acid 1 mg tablet 1 mg PO DAILY Qty: 30 RF: 0 Continued lisinopril 20 mg Tablet 20 mg PO DAILY RF: 0 omeprazole 20 mg Tablet,Delayed Release (Dr/Ec) 40 mg PO DAILY RF: 0 clonidine HCl 0.1 mg tablet 0.1 mg PO BID Qty: 0 RF: 0 vitamin B complex Tablet Extended Release 1 tab PO DAILY RF: 0 cholecalciferol (vitamin D3) 10 mcg (400 unit) Tablet,Chewable 20 mcg PO DAILY RF: 0 atorvastatin [Lipitor] 40 mg Tablet 40 mg PO HS RF: 0 Discharge Orders: Discharge Order (Routine); Ordered 01/03/22 Ordered By: Buck Trujillo Admission Data Admit Date/Time: 12/29/21 15:10 Attending Provider: Buck Trujillo Admit Provider: Celina Rayo Primary Care Provider: Sharla Griffin,Medicine Other Providers: Celina Rayo
== END 2022-01-03 13:09 | disposition home or self-care (01) | DRG 897 ==
LOC: ED 11:53 → SUATTDRO 15:10 → 1E 15:10 → 2S 12-31 16:02

== ENCOUNTER 2022-01-28 21:24 | Inpatient (IN) ==
[2022-01-28] MEDS ORDERED: HALOPERIDOL LACTATE 5 MG/ML 1 ML VIAL ONE (22:40)
[2022-01-28] MEDS ORDERED: HALOPERIDOL LACTATE 5 MG/ML 1 ML VIAL IM STA (22:41)
[2022-01-28] MEDS ORDERED: LORazepam 2 MG/1 ML VIAL ONE (22:41)
[2022-01-28] MEDS ORDERED: LORazepam 2 MG/1 ML VIAL IM STA (22:41)
--- NOTE | 2022-01-28 22:58 | Emergency Department Note ---
History of Present Illness General Chief complaint: Alcohol Intoxication Stated complaint: 201 Time Seen by Provider: 01/28/22 22:41 Source: patient Limitations: patient cooperation and intoxication History of Present Illness Provider complaint: Depression History is severely limited due to lack of cooperation from the patient. I did obtain history from the nurses as well as the mental health leather case finisher. Apparently this patient has a history of alcohol abuse and dependence. He called 911 today. He stated that he wanted help because he had depression and was abusing alcohol. He was advised to go to the emergency department by the police and came here voluntarily. Once he arrived apparently his O2 saturations were in the high 80s and so they wanted to put him on the monitor. He did not like this and became very combative. He wanted to leave. The patient had to be restrained as he became violent with the staff. He did tell the mental health leather case finisher that he wanted to and that he had guns at home. He will not give me any history. Once the patient was awake and alert he was much more cooperative and able to talk to me. He stated that he called 911 because he wanted help with his drinking. He states that he is not suicidal. He denies stating that he wanted to although staff certainly did hear him say so. He states he has guns for hunting. He states he just wants help with his drinking. He denies any physical complaints. He states he has no headache, recent injury or fall, fever, cough or cold symptoms, chest pain, shortness of breath, abdominal pain, vomiting, diarrhea or urinary symptoms. He denies using any drugs other than alcohol. Home Medications Medication Instructions Recorded Confirmed Type lisinopril 20 mg tablet 20 mg PO DAILY 03/16/20 12/29/21 History omeprazole 20 mg tablet,delayed 40 mg PO DAILY 03/16/20 12/29/21 History release clonidine HCl 0.1 mg tablet 0.1 mg PO BID #0 tab 03/19/20 12/29/21 Rx cholecalciferol (vitamin D3) 10 20 mcg PO DAILY 06/02/20 12/29/21 History mcg (400 unit) chewable tablet vitamin B complex 1 tab PO DAILY 12/08/20 12/29/21 History atorvastatin 40 mg tablet (Lipitor) 40 mg PO HS 12/29/21 12/29/21 History folic acid 1 mg tablet 1 mg PO DAILY #30 tab 01/03/22 Rx nicotine 21 mg/24 hr daily 21 mg TRANSDERMAL QAM #28 ea 01/03/22 Rx transdermal patch (Nicoderm CQ) thiamine HCl (vitamin B1) 100 mg 100 mg PO QAM #30 tab 01/03/22 Rx tablet Allergies Allergy/AdvReac Type Severity Reaction Status Date / Time No Known Allergies Allergy Verified 12/29/21 15:05 Past Med/Surg History Medical History Alcohol dependence Anxiety Depression Dyslipidemia GERD (gastroesophageal reflux disease) Hypertension Smoker Suicidal thoughts Surgical History No history of previous surgery Family History Father , age 70 from [place] Coronary heart disease Social History Smoking Status: Current some day smoker Tobacco Type: Cigarettes Cigarettes Per Day: 5; Second Hand Exposure: No; Hx Alcohol Use: Yes Alcohol type: beer Hx Substance Use: No Preferred Language: Welsh Communication Ability: Effective Inspector And Sorter Required: No Beliefs That Will Affect Care: None marital status: Current Living Situation: Alone Current Living Situation Comment: pt states lives in large farmhouse where two brothers unrelated to him live Feels Safe at Home: Yes Assistive Devices: Glasses Review of Systems See HPI for pertinent positives & negatives. and A total of 10 systems reviewed and were otherwise negative Physical Exam Vital Signs Vital Signs - 24 hr 01/28/22 21:08 01/28/22 22:00 01/28/22 23:08 Temperature 37.0 C Temperature Source Oral Pulse Rate [Right Finger] 78 103 H Pulse Rhythm [Right Finger] Regular Pulse Strength [Right Finger] Normal Respiratory Rate 14 18 Respiratory Effort / Characteristics Non-Labored Spontaneous Respiratory Depth Normal Blood Pressure [Right Arm] 147/85 H Blood Pressure Mean [Right Arm] 105 Blood Pressure Position [Right Arm] Lying Pulse Oximetry 90 93 Oxygen Delivery Method Room Air Nasal Cannula Room Air Sepsis Recent Fever Within 48 Hours No Sepsis New/Unexplained Change in Mental Status No Sepsis Action Taken by Nursing No Action Required Oxygen Flow Rate - Titration 3 Pulse Oximetry Post Tiitration 95 The physical exam is limited due to the patient's condition. Constitutional: Vital signs reviewed. Eyes: Refuses to look at me. HENT: Normocephalic atraumatic. Respiratory: Clear to auscultation bilaterally. Breath sounds are equal bilaterally. Cardiovascular: Regular rate and rhythm. No murmurs, rubs or gallops. GI: Soft, nondistended. Bowel sounds are present. Musculoskeletal: No peripheral edema. Integumentary: No cyanosis. Neurological: Awake and alert. The patient moves all extremities. Psychiatric: Hostile and combative. Reexamined the patient shows the following: Eyes: Pupils are equal round reactive to light. Conjunctiva are noninjected. ENT: Pharynx is clear without erythema or exudate. Mucous membranes are slightly dry. Neck supple without meningeal signs. Respiratory: Clear to auscultation bilaterally. Breath sounds are equal bilaterally. Cardiovascular: Regular rate and rhythm. No rubs or gallops. GI: Soft, nondistended and nontender. Bowel sounds are present. Musculoskeletal: No peripheral edema. No lower extremity tenderness. Integumentary: No cyanosis. or jaundice. Neurological: The patient is awake and alert. No focal deficits. Psychiatric: No pressured speech. Cooperative. Denies suicidal ideation. Course Administered Medications Discontinued Medications Haloperidol Lactate (Haloperidol Lactate 5 Mg/Ml 1 Ml Vial) Confirm Administered Dose 5 mg .ROUTE .STK-MED ONE Stop: 01/28/22 22:41 Last Admin: 01/28/22 22:54 Dose: Not Given Documented by: [id number] Haloperidol Lactate (Haloperidol Lactate 5 Mg/Ml 1 Ml Vial) 5 mg IM NOW STA Stop: 01/28/22 22:42 Last Admin: 01/28/22 22:54 Dose: 5 mg Documented by: [id number] Lorazepam (Lorazepam 2 Mg/1 Ml Vial) Confirm Administered Dose 2 mg .ROUTE .STK- MED ONE Stop: 01/28/22 22:42 Last Admin: 01/28/22 22:54 Dose: Not Given Documented by: [id number] Lorazepam (Lorazepam 2 Mg/1 Ml Vial) 2 mg IM NOW STA Stop: 01/28/22 22:42 Last Admin: 01/28/22 22:54 Dose: 2 mg Documented by: [id number] Medical Decision Making Differential Diagnosis Suicidal ideation, mood disorder, alcohol intoxication, drug abuse, alcohol dependence Medical Records Attestation: I reviewed the patient's medical records. I did perform a limited focused review of portions of the patient's old chart on the electronic medical record. The patient was admitted last month for alcohol abuse and withdrawal. He was just discharged on January 03. Home Medications Current Medication List: was personally reviewed by me Laboratory Data Attestation: I reviewed the patient's lab results. Result diagrams: 01/28/22 23:09 01/28/22 23:09 Lab Results 01/28/22 01/28/22 01/28/22 Range/Units 23:09 23:09 23:09 WBC 5.92 (4.8-10.8) K/uL RBC 5.35 (4.7-6.1) M/uL Hgb 18.1 H (14.0-18.0) g/dL Hct 50.0 (42-52) % MCV 93.5 (80-100) fL MCH 33.8 (25-34) pg MCHC 36.2 H (32-36) g/dL RDW Std Deviation 42.3 (36.4-46.3) fL RDW Coeff of Eloy 12.4 (11.5-14.5) % Plt Count 198 (130-400) K/uL MPV 9.8 (7.4-10.4) fL Immature Gran % (Auto) 0.3 % Neut % (Auto) 45.4 % Lymph % (Auto) 44.8 % [place] % (Auto) 7.3 % Eos % (Auto) 1.9 % Baso % (Auto) 0.3 % Neut # (Auto) 2.69 (1.4-6.5) K/uL Lymph # (Auto) 2.65 (1.2-3.4) K/uL [place] # (Auto) 0.43 (0.11-0.59) K/uL Eos # (Auto) 0.11 (0-0.5) K/uL Baso # (Auto) 0.02 (0-0.2) K/uL Immature Gran # (Auto) 0.02 (0.00-0.02) K/uL Sodium 140 (136-145) mmol/L Potassium 3.7 (3.5-5.1) mmol/L Chloride 104 (98-107) mmol/L Carbon Dioxide 23 (21-32) mmol/L Anion Gap 13 H (3-11) BUN 11 (6-23) mg/dl Creatinine 0.96 (0.6-1.4) mg/dl Est Cr Clr Drug Dosing 91.6 ml/min Est GFR ( Amer) 98.5 ml/min Est GFR (Non-Af Amer) 85.0 ml/min BUN/Creatinine Ratio 11.5 (10-20) Glucose 112 H (70-99(Fasting)) mg/dl Calcium 9.0 (8.5-10.1) mg/dl Total Bilirubin 0.6 (0.2-1.0) mg/dl AST 42 H (13-39) U/L ALT 53 H (7-52) U/L Alkaline Phosphatase 77 (34-104) U/L Total Protein 8.1 (6.0-8.3) gm/dl Albumin 4.7 (3.4-5.0) gm/dl Globulin 3.4 (2.5-4.0) gm/dl Albumin/Globulin Ratio 1.4 (0.9-2) TSH 2.762 (0.300-4.500) uIu/ml Urine Color Urine Appearance (Clear) Urine pH (4.5-7.5) Ur Specific [place] (1.000-1.030) Urine Protein (Negative) Urine Glucose (UA) (Negative) Urine Ketones (Negative) Urine Blood (Negative) Urine Nitrite (Negative) Urine Bilirubin (Negative) Urine Urobilinogen (Negative) Ur Leukocyte Esterase (Negative) Salicylates (3.0-30) mg/dl Urine Opiates Screen (Neg) Ur Methadone, Qual (Neg) Acetaminophen (10-30) ug/ml Urine Barbiturates (Neg) Ur Phencyclidine (PCP) (Neg) U Amphetamin/Meth Scrn (Neg) MDMA (Ecstasy) Screen (Neg) U Benzodiazepines Scrn (Neg) Ur Cocaine Metabolite (Neg) U Marijuana (THC) Screen (Neg) Ethyl Alcohol mg/dL (<10.0) mg/dl 01/28/22 01/28/22 01/29/22 Range/Units 23:09 23:09 01:35 WBC (4.8-10.8) K/uL RBC (4.7-6.1) M/uL Hgb (14.0-18.0) g/dL Hct (42-52) % MCV (80-100) fL MCH (25-34) pg MCHC (32-36) g/dL RDW Std Deviation (36.4-46.3) fL RDW Coeff of Eloy (11.5-14.5) % Plt Count (130-400) K/uL MPV (7.4-10.4) fL Immature Gran % (Auto) % Neut % (Auto) % Lymph % (Auto) % [place] % (Auto) % Eos % (Auto) % Baso % (Auto) % Neut # (Auto) (1.4-6.5) K/uL Lymph # (Auto) (1.2-3.4) K/uL [place] # (Auto) (0.11-0.59) K/uL Eos # (Auto) (0-0.5) K/uL Baso # (Auto) (0-0.2) K/uL Immature Gran # (Auto) (0.00-0.02) K/uL Sodium (136-145) mmol/L Potassium (3.5-5.1) mmol/L Chloride (98-107) mmol/L Carbon Dioxide (21-32) mmol/L Anion Gap (3-11) BUN (6-23) mg/dl Creatinine (0.6-1.4) mg/dl Est Cr Clr Drug Dosing ml/min Est GFR ( Amer) ml/min Est GFR (Non-Af Amer) ml/min BUN/Creatinine Ratio (10-20) Glucose (70-99(Fasting)) mg/dl Calcium (8.5-10.1) mg/dl Total Bilirubin (0.2-1.0) mg/dl AST (13-39) U/L ALT (7-52) U/L Alkaline Phosphatase (34-104) U/L Total Protein (6.0-8.3) gm/dl Albumin (3.4-5.0) gm/dl Globulin (2.5-4.0) gm/dl Albumin/Globulin Ratio (0.9-2) TSH (0.300-4.500) uIu/ml Urine Color Urine Appearance (Clear) Urine pH (4.5-7.5) Ur Specific [place] (1.000-1.030) Urine Protein (Negative) Urine Glucose (UA) (Negative) Urine Ketones (Negative) Urine Blood (Negative) Urine Nitrite (Negative) Urine Bilirubin (Negative) Urine Urobilinogen (Negative) Ur Leukocyte Esterase (Negative) Salicylates < 3.0 L (3.0-30) mg/dl Urine Opiates Screen Neg (Neg) Ur Methadone, Qual Neg (Neg) Acetaminophen < 3 L (10-30) ug/ml Urine Barbiturates Neg (Neg) Ur Phencyclidine (PCP) Neg (Neg) U Amphetamin/Meth Scrn Neg (Neg) MDMA (Ecstasy) Screen Neg (Neg) U Benzodiazepines Scrn Neg (Neg) Ur Cocaine Metabolite Neg (Neg) U Marijuana (THC) Screen Neg (Neg) Ethyl Alcohol mg/dL 230.4 H (<10.0) mg/dl 01/29/22 Range/Units 01:35 WBC (4.8-10.8) K/uL RBC (4.7-6.1) M/uL Hgb (14.0-18.0) g/dL Hct (42-52) % MCV (80-100) fL MCH (25-34) pg MCHC (32-36) g/dL RDW Std Deviation (36.4-46.3) fL RDW Coeff of Eloy (11.5-14.5) % Plt Count (130-400) K/uL MPV (7.4-10.4) fL Immature Gran % (Auto) % Neut % (Auto) % Lymph % (Auto) % [place] % (Auto) % Eos % (Auto) % Baso % (Auto) % Neut # (Auto) (1.4-6.5) K/uL Lymph # (Auto) (1.2-3.4) K/uL [place] # (Auto) (0.11-0.59) K/uL Eos # (Auto) (0-0.5) K/uL Baso # (Auto) (0-0.2) K/uL Immature Gran # (Auto) (0.00-0.02) K/uL Sodium (136-145) mmol/L Potassium (3.5-5.1) mmol/L Chloride (98-107) mmol/L Carbon Dioxide (21-32) mmol/L Anion Gap (3-11) BUN (6-23) mg/dl Creatinine (0.6-1.4) mg/dl Est Cr Clr Drug Dosing ml/min Est GFR ( Amer) ml/min Est GFR (Non-Af Amer) ml/min BUN/Creatinine Ratio (10-20) Glucose (70-99(Fasting)) mg/dl Calcium (8.5-10.1) mg/dl Total Bilirubin (0.2-1.0) mg/dl AST (13-39) U/L ALT (7-52) U/L Alkaline Phosphatase (34-104) U/L Total Protein (6.0-8.3) gm/dl Albumin (3.4-5.0) gm/dl Globulin (2.5-4.0) gm/dl Albumin/Globulin Ratio (0.9-2) TSH (0.300-4.500) uIu/ml Urine Color Yellow Urine Appearance Clear (Clear) Urine pH 5.0 (4.5-7.5) Ur Specific [place] 1.013 (1.000-1.030) Urine Protein Negative (Negative) Urine Glucose (UA) Negative (Negative) Urine Ketones Negative (Negative) Urine Blood Negative (Negative) Urine Nitrite Negative (Negative) Urine Bilirubin Negative (Negative) Urine Urobilinogen Negative (Negative) Ur Leukocyte Esterase Negative (Negative) Salicylates (3.0-30) mg/dl Urine Opiates Screen (Neg) Ur Methadone, Qual (Neg) Acetaminophen (10-30) ug/ml Urine Barbiturates (Neg) Ur Phencyclidine (PCP) (Neg) U Amphetamin/Meth Scrn (Neg) MDMA (Ecstasy) Screen (Neg) U Benzodiazepines Scrn (Neg) Ur Cocaine Metabolite (Neg) U Marijuana (THC) Screen (Neg) Ethyl Alcohol mg/dL (<10.0) mg/dl MDM Narrative I was called emergently to the room by the nurse as the patient was combative and required restraints. The patient initially was very hostile and uncooperative. He would not answer questions or follow commands. He did require physical restraints as well as chemical restraints. He did tell the mental health leather case finisher that he just wanted to and that he had guns at home. I did treat him with Haldol 5 mg IM and Ativan [address] did [address] an order for continuous cardiac monitoring. The monitor showed sinus tachycardia rate of 102 bpm. I did order a urine analysis. I did order and review the patient's blood work as noted in the electronic medical record. CBC is unremarkable without leukocytosis or anemia. LFTs show a slight bump in his transaminases which is not surprising given his alcohol use. Bilirubin is 0.6. Electrolytes are unremarkable. Tox screen for salicylates and acetaminophen are negative. Ethyl alcohol is 230. I did reassess the patient several times. Eventually he became less belligerent and uncooperative. I reexamined him and reinterviewed him. He maintains that he is not suicidal at this time. The patient was taken out of restraints. He states he will be cooperative and wait for mental health evaluation at 5 AM once he is medically cleared. Current O2 saturation is 93% on room air. He denies any respiratory complaints. The patient was signed out to Dr. Herrera at change of shift. Impression & Plan Mood disorder, Alcohol dependence, Suicidal ideation Discharge Plan Visit Data Chief Complaint: Alcohol Intoxication Stated Complaint: 201 ED Provider: Kelvin Robles Discharge Problem: Mood disorder, Alcohol dependence, Suicidal ideation Patient Disposition: Still a Patient Forms Stand Alone Forms: My [facility], Suicide Prevention Resources Prescriptions Prescriptions: No Action lisinopril 20 mg Tablet 20 mg PO DAILY RF: 0 omeprazole 20 mg Tablet,Delayed Release (Dr/Ec) 40 mg PO DAILY RF: 0 clonidine HCl 0.1 mg tablet 0.1 mg PO BID Qty: 0 RF: 0 vitamin B complex Tablet Extended Release 1 tab PO DAILY RF: 0 cholecalciferol (vitamin D3) 10 mcg (400 unit) Tablet,Chewable 20 mcg PO DAILY RF: 0 atorvastatin [Lipitor] 40 mg Tablet 40 mg PO HS RF: 0 nicotine [Nicoderm CQ] 21 mg/24 hr Patch 24 Hour 21 mg transdermal QAM Qty: 28 RF: 0 thiamine HCl (vitamin B1) 100 mg Tablet 100 mg PO QAM Qty: 30 RF: 0 folic acid 1 mg tablet 1 mg PO DAILY Qty: 30 RF: 0 Referrals Referrals: [facility],Medicine [Primary Care Provider] - Discharge Problem: Alcohol dependence Qualifiers: Substance use status: with intoxication Complication of substance-induced condition: with unspecified complication Qualified Code(s): F10.229 - Alcohol dependence with intoxication, unspecified
[2022-01-29 00:12] LABS: Basophils # (auto) 0.02 K/uL (0-0.2); Basophils % (auto) 0.3 %; Eosinophils # (auto) 0.11 K/uL (0-0.5); Eosinophils % (auto) 1.9 %; Hemoglobin 18.1 g/dL (14.0-18.0); Immature Granulocytes # (auto) 0.02 K/uL (0.00-0.02); Immature Granulocytes % (auto) 0.3 %; Lymphocytes # (auto) 2.65 K/uL (1.2-3.4); Lymphocytes % (auto) 44.8 %; Mean Corpuscular Hemoglobin 33.8 pg (25-34); Mean Corpuscular Hgb Conc 36.2 g/dL (32-36); Mean Corpuscular Volume 93.5 fL (80-100); Mean Platelet Volume 9.8 fL (7.4-10.4); Monocytes # (auto) 0.43 K/uL (0.11-0.59); Monocytes % (auto) 7.3 %; Neutrophils # (auto) 2.69 K/uL (1.4-6.5); Neutrophils % (auto) 45.4 %; Platelet Count 198 K/uL (130-400); RDW Coefficient of Variation 12.4 % (11.5-14.5); RDW Standard Deviation 42.3 fL (36.4-46.3); Red Blood Count 5.35 M/uL (4.7-6.1); White Blood Count 5.92 K/uL (4.8-10.8)
[2022-01-29 00:37] LABS: Acetaminophen < 3 ug/ml (10-30); Albumin Globulin Ratio 1.4 (0.9-2); Albumin Level 4.7 gm/dl (3.4-5.0); BUN Creatinine Ratio 11.5 (10-20); Bilirubin,Total 0.6 mg/dl (0.2-1.0); Creatinine Clr Calc Pharmacy 91.6 ml/min; Est GFR (African American) 98.5 ml/min; Globulin 3.4 gm/dl (2.5-4.0); Potassium 3.7 mmol/L (3.5-5.1); Salicylate < 3.0 mg/dl (3.0-30); Total Protein 8.1 gm/dl (6.0-8.3)
[2022-01-29 02:07] LABS: Appearance Urine Clear (Clear); Bilirubin Urine Negative (Negative); Blood Urine Negative (Negative); Color Urine Yellow; Glucose Urine UA Negative (Negative); Ketones Urine Negative (Negative); Leukocyte Esterase Urine Negative (Negative); Nitrite Urine Negative (Negative); Protein Urine Negative (Negative); Specific Gravity Urine 1.013 (1.000-1.030); Urobilinogen Urine Negative (Negative)
[2022-01-29 02:30] LABS: Amphetamines+Metham, Urine Neg (Neg); Barbiturates, Urine Neg (Neg); Benzodiazepine, Urine Neg (Neg); Cocaine, Urine Neg (Neg); MDMA (Ecstacy), Urine Neg (Neg); Methadone, Urine Neg (Neg); Opiate, Urine Neg (Neg); Phencyclidine, Urine Neg (Neg)
[2022-01-29] MEDS ORDERED: LORazepam 2 MG/1 ML VIAL IV STA (06:20)
--- NOTE | 2022-01-29 06:22 | Emergency Department Note ---
ED Visit Note Patient signed out to me by Dr. Robles at change of shift. Patient awaiting sobriety for additional mental health evaluation. Patient is here as a 302 warrant. He was previously chemically and physically restrained. 0545: Patient denies SI at this time. Given concern that patient lives alone, has access to weapons, made suicidal statements, has history of alcohol abuse and has previously required inpatient mental health treatment, I feel patient should be admitted. After discussion with case management, they feel patient cannot be placed psychiatrically due to his significant risk of alcohol withdrawal and will need to be admitted medically with psychiatric consult. . : Alcohol dependence Qualifiers: Substance use status: with intoxication Complication of substance-induced condition: with unspecified complication Qualified Code(s): F10.229 - Alcohol dependence with intoxication, unspecified
[2022-01-29] MEDS ORDERED: GABAPENTIN 1200MG ALCOHOL WITHDRAWAL LOAD PO STA (08:05)
[2022-01-29] MEDS ORDERED: GABAPENTIN 600 MG TAB PO STA (09:12)
--- NOTE | 2022-01-29 09:17 | History & Physical Report ---
Date of Service January 29, 2022 Assessment & Plan (1) Alcohol dependence: (2) Alcohol withdrawal: (3) Suicidal ideation: (4) Hypertension: (5) Dyslipidemia: (6) GERD (gastroesophageal reflux disease): (7) Smoker: Plan: This is a 61-year-old male who has significant past medical history of HTN, HLD, alcohol abuse and GERD who presented to ED last evening due to patient wanting help for depression and abusing alcohol. Alcohol abuse Alcohol withdrawal Admit to PCU PADMAJA as protocol with gabapentin taper As needed IV Ativan Banana bag ordered Daily folic acid and thiamine Encourage cessation and rehab Depression with initial suicidal ideation Consult psychiatry 302 obtained SI precautions, safe tray Hypertension BP mildly elevated, but did not take any medications Continue clonidine, hold lisinopril Resume lisinopril when able Hyperlipidemia On statin as outpatient, hold Mild transaminitis Statin on hold Likely in setting of alcohol abuse Monitor Tobacco abuse Encourage smoking cessation Patient currently declines nicotine patch DVT prophylaxis: Ambulate Dispo: PCU Full code PCP: [facility] Patient was seen and examined in collaboration with Dr. Grijalva, please see addendum History of Present Illness Chief Complaint: 302, alcohol abuse and withdrawal Primary Care Provider: [facility] This is a 61-year-old male who has significant past medical history of HTN, HLD, alcohol abuse and GERD who presented to ED last evening due to patient wanting help for depression and abusing alcohol. History from last evening mostly obtained from ER provider notes. Apparently patient had called 911 and stated he wanted help due to feeling depressed and abusing alcohol. He was advised to go to the ED by the police that he came here voluntarily. Once he arrived to ED he was found to be slightly hypoxic and he was placed on a monitor. After being placed on a monitor he became very combative and wanted to leave. He was also violent with staff. He required physical and chemical restraint. He did tell mental health casey saw operator that he had guns at home and wanted to . Due to this a 302 was obtained due to patient having guns at home and concurrent alcohol abuse. It is recommended he be admitted for medical management of withdrawal and psychiatric evaluation. Advocates patient was recently hospitalized 12/29- due to wanting to pursue alcohol detox and rehab. He was discharged to home with rehab to start on 01/08. Unfortunately he did not go to rehab and relapsed with alcohol. His last drink was last evening. He drinks approximately a 30 pack of beer a day for the past 5 to 6 months. Currently he is thinking about pursuing rehab again. He remains in ED and is mu ch more cooperative. He does feel slightly tremulous but otherwise denies any fever, chills, sweats, lightheadedness, dizziness, chest pain, shortness of breath, cough, nausea, vomiting, abdominal pain, changes bowel or urinary habits. He denies any medication changes since discharge and admits to being compliant with his medications. He currently denies any suicidal or homicidal ideations. Allergies Allergy/AdvReac Type Severity Reaction Status Date / Time No Known Allergies Allergy Verified 12/29/21 15:05 Home Medications Medication Instructions Recorded Confirmed Type lisinopril 20 mg tablet 20 mg PO DAILY 03/16/20 01/29/22 History omeprazole 20 mg tablet,delayed 40 mg PO DAILY 03/16/20 01/29/22 History release clonidine HCl 0.1 mg tablet 0.1 mg PO BID #0 tab 03/19/20 01/29/22 Rx cholecalciferol (vitamin D3) 10 20 mcg PO DAILY 06/02/20 01/29/22 History mcg (400 unit) chewable tablet vitamin B complex 1 tab PO DAILY 12/08/20 01/29/22 History atorvastatin 40 mg tablet (Lipitor) 40 mg PO HS 12/29/21 01/29/22 History folic acid 1 mg tablet 1 mg PO DAILY #30 tab 01/03/22 01/29/22 Rx nicotine 21 mg/24 hr daily 21 mg TRANSDERMAL QAM #28 ea 01/03/22 01/29/22 Rx transdermal patch (Nicoderm CQ) thiamine HCl (vitamin B1) 100 mg 100 mg PO QAM #30 tab 01/03/22 01/29/22 Rx tablet Past Med/Surg History Medical History Alcohol dependence Anxiety Depression Dyslipidemia GERD (gastroesophageal reflux disease) Hypertension Smoker Suicidal thoughts Surgical History No history of previous surgery Family History Father , age 70 from [place] Coronary heart disease Social History Smoking Status: Current some day smoker Tobacco Type: Cigarettes Cigarettes Per Day: 8; Second Hand Exposure: No; Tobacco Cessation Education Requested by Patient: Yes Hx Alcohol Use: Yes Alcohol type: beer and hard liquor Hx Substance Use: No Preferred Language: Yi Communication Ability: Effective Narcotics Detective Required: No Beliefs That Will Affect Care: None marital status: Current Living Situation: Alone Current Living Situation Comment: pt states lives in large farmhouse where two brothers unrelated to him live Feels Safe at Home: Yes Safety Concerns: Feels Safe At This Time Assistive Devices: Glasses Review of Systems Review of Systems: All systems reviewed & are unremarkable except as noted in HPI & below Physical Exam Physical Exam: Constitutional: WD/WN, vitals as above, NAD lying in bed, flat affect, answers questions appropriately Head: Normocephalic, Atraumatic Eyes: PERRL, conjunctivae normal, anicteric sclerae ENMT: external ear and nose normal, oropharynx normal Neck: trachea midline, no thyromegaly normal visual inspection Respiratory: normal respiratory effort, lungs clear to auscultation, no wheeze, rales, rhonchi. Normal insp/exp effort, no accessory muscle use Cardiovascular: RRR, 1/6 RADHA noted RUSB, no edema Vessels: no JVD or carotid bruit Chest: normal inspection of chest Abdomen: normal bowel sounds, soft, nontender, no hepatosplenomegaly Musculoskeletal: no cyanosis or clubbing, active range of motion x4 Skin: no rashes, warm and dry normal turgor Neurologic: PERRL, EOMI, accommodation nl, no face palsy, no dysarthria CN's II-XI intact bilaterally and moves all extremities Psychiatric: A+Ox3, euthymic affect Lymphatic: no cervical or axillary lymphadenopathy : deferred Results & Data Results & Data ([facility]) Vital Signs (Past 12 Hours) Vital Signs Pulse Resp BP Pulse Ox 01/29/22 07:00 80 16 161/73 H 93 01/29/22 06:18 92 H 20 172/96 H 94 01/28/22 23:08 103 H 18 93 Medications Administered Medication List Discontinued Medications Gabapentin (Gabapentin 600 Mg Tab) 1,200 mg PO ONE STA Stop: 01/29/22 09:13 Last Admin: 01/29/22 09:14 Dose: 1,200 mg Documented by: [id number] Haloperidol Lactate (Haloperidol Lactate 5 Mg/Ml 1 Ml Vial) Confirm Administered Dose 5 mg .ROUTE .STK-MED ONE Stop: 01/28/22 22:41 Last Admin: 01/28/22 22:54 Dose: Not Given Documented by: [id number] Haloperidol Lactate (Haloperidol Lactate 5 Mg/Ml 1 Ml Vial) 5 mg IM NOW STA Stop: 01/28/22 22:42 Last Admin: 01/28/22 22:54 Dose: 5 mg Documented by: [id number] Lorazepam (Lorazepam 2 Mg/1 Ml Vial) Confirm Administered Dose 2 mg .ROUTE .STK- MED ONE Stop: 01/28/22 22:42 Last Admin: 01/28/22 22:54 Dose: Not Given Documented by: [id number] Lorazepam (Lorazepam 2 Mg/1 Ml Vial) 2 mg IM NOW STA Stop: 01/28/22 22:42 Last Admin: 01/28/22 22:54 Dose: 2 mg Documented by: [id number] Lorazepam (Lorazepam 2 Mg/1 Ml Vial) 2 mg IV NOW STA Stop: 01/29/22 06:21 Last Admin: 01/29/22 06:39 Dose: 2 mg Documented by: [id number] COVID-19 Results Results COVID-19 Adm Lab Results: RBC 5.35 M/uL (4.7-6.1) 01/28/22 WBC 5.92 K/uL (4.8-10.8) 01/28/22 Hgb 18.1 g/dL (14.0-18.0) H 01/28/22 Hct 50.0 % (42-52) 01/28/22 Plt Count 198 K/uL (130-400) 01/28/22 Neutrophils (%) (Auto) 45.4 % 01/28/22 Lymphocytes (%) (Auto) 44.8 % 01/28/22 Monocytes # (Auto) 0.43 K/uL (0.11-0.59) 01/28/22 Eosinophils # (Auto) 0.11 K/uL (0-0.5) 01/28/22 Immature Granulocyte % (Auto) 0.3 % 01/28/22 Neutrophils # (Auto) 2.69 K/uL (1.4-6.5) 01/28/22 Lymphocytes # (Auto) 2.65 K/uL (1.2-3.4) 01/28/22 Monocytes # (Auto) 0.43 K/uL (0.11-0.59) 01/28/22 Eosinophils # (Auto) 0.11 K/uL (0-0.5) 01/28/22 Basophils # (Auto) 0.02 K/uL (0-0.2) 01/28/22 Immature Granulocyte # (Auto) 0.02 K/uL (0.00-0.02) 01/28/22 Na 140 mmol/L (136-145) 01/28/22 K 3.7 mmol/L (3.5-5.1) 01/28/22 Cl 104 mmol/L (98-107) 01/28/22 CO2 23 mmol/L (21-32) 01/28/22 Anion Gap 13 (3-11) H 01/28/22 BUN 11 mg/dl (6-23) 01/28/22 Creatinine 0.96 mg/dl (0.6-1.4) 01/28/22 BUN/Creatinine Ratio 11.5 (10-20) 01/28/22 Glucose Level 112 mg/dl (70-99(Fasting)) H 01/28/22 Ca 9.0 mg/dl (8.5-10.1) 01/28/22 Total Bilirubin 0.6 mg/dl (0.2-1.0) 01/28/22 AST/SGOT 42 U/L (13-39) H 01/28/22 ALT/SGPT 53 U/L (7-52) H 01/28/22 Alkaline Phosphatase 77 U/L (34-104) 01/28/22 Total Protein 8.1 gm/dl (6.0-8.3) 01/28/22 Albumin 4.7 gm/dl (3.4-5.0) 01/28/22 Globulin 3.4 gm/dl (2.5-4.0) 01/28/22 Albumin/Globulin Ratio 1.4 (0.9-2) 01/28/22 SARS-CoV-2, RNA, NAAT NEGATIVE (NEGATIVE) 01/29/22 Code Status & VTE Plan Code Status Full code VTE Prophylaxis Plan VTE Prophylaxis will be ordered: Yes Supervising Physician Co-Signing Physician Notes Patient was seen and evaluated independently. Chart reviewed. Case discussed with RUBY. I agree with assessment and plan as above. Maintain suicide precautions until evaluated by psychiatry. Patient currently is on 302 hold and may NOT leave AMA. (1) Alcohol dependence Complication of substance-induced condition: with unspecified complication Substance use status: with intoxication Qualified Code(s): F10.229 - Alcohol dependence with intoxication, unspecified (2) Alcohol withdrawal Complication of substance-induced condition: with unspecified complication Qualified Code(s): F10.239 - Alcohol dependence with withdrawal, unspecified (3) GERD (gastroesophageal reflux disease) Esophagitis presence: esophagitis presence not specified Qualified Code(s): K21.9 - Gastro-esophageal reflux disease without esophagitis (4) Hypertension Hypertension type: unspecified Qualified Code(s): I10 - Essential (primary) hypertension
[2022-01-29] MEDS ORDERED: ALUMINUM/MAGNESIUM SUSP 30 ML UDC PO PRN (09:40)
[2022-01-29] MEDS ORDERED: ONDANSETRON INJ 2 MG/ML 2 ML VIAL IV PRN (09:40)
[2022-01-29] MEDS ORDERED: GABAPENTIN 600 MG TAB PO ONE (09:40)
[2022-01-29] MEDS ORDERED: ATIVAN IV ALCOHOL WITHDRAWL IV PRN (09:40)
[2022-01-29] MEDS ORDERED: POLYETHYLENE (MIRALAX) 17 GM PACK PO PRN (09:40)
[2022-01-29] MEDS ORDERED: LORazepam 2 MG/1 ML VIAL IV PRN (09:40)
[2022-01-29] MEDS ORDERED: ACETAMINOPHEN 325 MG TAB PO PRN (09:57)
[2022-01-29] MEDS ORDERED: FOLIC ACID 1 MG TAB PO SCH (10:00)
[2022-01-29] MEDS ORDERED: MULTI-VITAMIN INFUSION 10 ML, THIAMINE HCL 100 MG, FOLIC ACID 1 MG in SODIUM CHLORIDE 0... IV ONE (10:00)
[2022-01-29] MEDS: LORazepam 2 MG/1 ML VIAL IV PRN ×2 (10:07→20:54)
[2022-01-29] MEDS: LACTATED RINGER'S 1,000 ML IV SCH ×2 (10:13→19:46)
[2022-01-29] MEDS: cloNIDine HCL 0.1 MG TAB PO SCH ×2 (11:10→19:47)
[2022-01-29] MEDS: PANTOprazole 40 MG TAB PO SCH (11:10)
[2022-01-29] MEDS: CHOLECALCIFEROL 400 UNITS 10 MCG TAB PO SCH (11:10)
--- NOTE | 2022-01-29 11:33 | Communication Note ---
Date of Service: January 29, 2022 consult request received, chart reviewed, patient known to me from previous inpatient hospitalizations for both mental health and ETOH withdrawal. Last seen consult service 2019. Has been on sertraline in the past with no clear benefit given ongoing Etoh use. last [facility] admit 09/2019. Upon presentation to the ED he was combative and hypoxic (80s). According to 302 statement CM was concerned about guns in home. Hx of rehab 9-10 X, did not attend rehab as scheduled on 01/08/22. Per liaison patient currently with AMS due to withdrawal and sedated from Ati van, has required significant amount of benzos in the past for detox. Treatment of choice for agitation related to ETOH withdrawal is benzos. Continue AWSS and withdrawal management per medical team. more complete consult to follow when patient is more alert.
[2022-01-29] MEDS: GABAPENTIN 600 MG TAB PO SCH ×2 (14:47→19:46)
[2022-01-30] MEDS: LACTATED RINGER'S 1,000 ML IV SCH ×2 (03:52→10:33)
[2022-01-30] MEDS: GABAPENTIN 600 MG TAB PO SCH ×3 (04:47→20:55)
[2022-01-30] MEDS: LORazepam 2 MG/1 ML VIAL IV PRN ×5 (06:31→23:23)
[2022-01-30 06:34] LABS: Basophils # (auto) 0.01 K/uL (0-0.2); Basophils % (auto) 0.3 %; Eosinophils # (auto) 0.21 K/uL (0-0.5); Eosinophils % (auto) 5.7 %; Hematocrit (blood only) 42.7 % (42-52); Hemoglobin 15.1 g/dL (14.0-18.0); Lymphocytes # (auto) 1.42 K/uL (1.2-3.4); Lymphocytes % (auto) 38.5 %; Mean Corpuscular Hemoglobin 33.4 pg (25-34); Mean Corpuscular Hgb Conc 35.4 g/dL (32-36); Mean Corpuscular Volume 94.5 fL (80-100); Mean Platelet Volume 10.2 fL (7.4-10.4); Monocytes % (auto) 13.6 %; Neutrophils # (auto) 1.55 K/uL (1.4-6.5); Neutrophils % (auto) 41.9 %; Platelet Count 150 K/uL (130-400); RDW Standard Deviation 41.1 fL (36.4-46.3); Red Blood Count 4.52 M/uL (4.7-6.1); White Blood Count 3.69 K/uL (4.8-10.8)
[2022-01-30 07:10] LABS: Albumin Globulin Ratio 1.5 (0.9-2); Albumin Level 3.9 gm/dl (3.4-5.0); BUN Creatinine Ratio 9.8 (10-20); Bilirubin,Total 1.1 mg/dl (0.2-1.0); Calcium 8.8 mg/dl (8.5-10.1); Creatinine Clr Calc Pharmacy 108.5 ml/min; Est GFR (African American) 110.6 ml/min; Est GFR (Non-African American) 95.4 ml/min; Globulin 2.6 gm/dl (2.5-4.0); Potassium 3.4 mmol/L (3.5-5.1); Total Protein 6.5 gm/dl (6.0-8.3)
[2022-01-30] MEDS ORDERED: POTASSIUM CHLORIDE CRTAB 20 MEQ TABCR PO STA (08:03)
[2022-01-30] MEDS: cloNIDine HCL 0.1 MG TAB PO SCH ×2 (08:32→20:55)
[2022-01-30] MEDS: PANTOprazole 40 MG TAB PO SCH (08:33)
[2022-01-30] MEDS: THIAMINE HCL 100 MG TAB PO SCH (08:33)
[2022-01-30] MEDS: FOLIC ACID 1 MG TAB PO SCH (08:33)
[2022-01-30] MEDS: CHOLECALCIFEROL 400 UNITS 10 MCG TAB PO SCH (08:34)
--- NOTE | 2022-01-30 09:49 | Psychiatric Consultation ---
Date of Consultation January 30, 2022 Impression / Recommendations Impression 61 yo male with history of substance induced depressive disorder admit with ETOH intoxication/withdrawal. Denies SI currently. (1) Alcohol dependence: Complication of substance-induced condition: with unspecified complication Substance use status: with intoxication Qualified Code(s): F10.229 - Alcohol dependence with intoxication, unspecified (2) Depression: Depression Type: unspecified Qualified Code(s): F32.9 - Major depressive disorder, single episode, unspecified patient unlikely to meet any inpatient psychiatric criteria when medically cleared, support ongoing monitoring on the warrant as his MSE is not yet baseline, hospital policy February d/c suicide precautions statements made while intoxicated are not grounds for commitment under [place] mental health code but patient is high risk given demographics and substance use disorder, will readdress guns as he currently doesn't give a consistent answer re: this. He states that he is unlikely to agree to inpatient rehab, would consider IOP but will continue to offer most appropriate level of care He would be interested in a trial of an antidepressant closer to discharge, I am hesitatnt to begin meds if not receiving appropriate level of care/monitoring. Psych History Identifying Data 61 yo male with hx of ETOH dependence and alcohol induced depressive disorder admit on 01/29/22, there is a 302 warrant on the chart completed in ED. Chief Complaint "No one from [facility] got back to me and I figured what's the point and started drinking again." History of Present Illness patient known to me from previous inpatient hospitalizations for both mental health and ETOH withdrawal. Last seen consult service 2019. Has been on sertraline in the past with no clear benefit given ongoing Etoh use. last [facility] admit 09/2019. Upon presentation to the ED he was combative and hypoxic (80s). According to 302 statement CM was concerned about guns in home. Hx of rehab 9-10 X, did not attend rehab as scheduled on 01/08/22. Of note, MART >230 at time of initial assessment. On 01/29/22, AMS due to withdrawal and sedated from Ativan, has required significant amount of benzos in the past for detox. No reason given why he didn't present to rehab on 01/08 other than he "did OK for 2 weeks and then just started up." Same issues re: low mood as estranged from family and easily frustrated. Says he doesn't want to talk to his CM again. He is very non-specific re: his depressive symptoms, typically low energy, disrupted sleep but all can also be attributed to alcohol. Appears flat and anhedonic but denies SI. Allergies Allergy/AdvReac Type Severity Reaction Status Date / Time No Known Allergies Allergy Verified 12/29/21 15:05 Home Medications Medication Instructions Recorded Confirmed Type lisinopril 20 mg tablet 20 mg PO DAILY 03/16/20 01/29/22 History omeprazole 20 mg tablet,delayed 40 mg PO DAILY 03/16/20 01/29/22 History release clonidine HCl 0.1 mg tablet 0.1 mg PO BID #0 tab 03/19/20 01/29/22 Rx cholecalciferol (vitamin D3) 10 20 mcg PO DAILY 06/02/20 01/29/22 History mcg (400 unit) chewable tablet vitamin B complex 1 tab PO DAILY 12/08/20 01/29/22 History atorvastatin 40 mg tablet (Lipitor) 40 mg PO HS 12/29/21 01/29/22 History folic acid 1 mg tablet 1 mg PO DAILY #30 tab 01/03/22 01/29/22 Rx nicotine 21 mg/24 hr daily 21 mg TRANSDERMAL QAM #28 ea 01/03/22 01/29/22 Rx transdermal patch (Nicoderm CQ) thiamine HCl (vitamin B1) 100 mg 100 mg PO QAM #30 tab 01/03/22 01/29/22 Rx tablet Personal History Beliefs That Will Affect Care: None Patient History Medical History Alcohol dependence Anxiety Depression Dyslipidemia GERD (gastroesophageal reflux disease) Hypertension Smoker Suicidal thoughts Surgical History No history of previous surgery Family History Father , age 70 from [place] Coronary heart disease Social History Smoking Status: Current some day smoker Tobacco Type: Cigarettes Cigarettes Per Day: 8; Second Hand Exposure: No; Tobacco Cessation Education Requested by Patient: Yes Hx Alcohol Use: Yes Alcohol type: beer and hard liquor Hx Substance Use: No Preferred Language: Wolof Communication Ability: Effective Molding Process Technician Required: No Beliefs That Will Affect Care: None marital status: Current Living Situation: Alone Current Living Situation Comment: pt states lives in large farmhouse where two brothers unrelated to him live Feels Safe at Home: Yes Safety Concerns: Feels Safe At This Time Assistive Devices: Glasses Physical Exam Psychiatric: Orientation: alert, oriented to person, oriented to place and oriented to time (general) Apperance: appropriately groomed Eye Contact: + fair eye contact Motor Behavior: no abnormal motor movements Speech: normal rate/rhythm/volume of speech (but not particularly spontaneous) Affect: + depressed affect Mood: + depressed mood Thought Process: + concrete thought process Thought Content: reality based without delusions Suicidal Thoughts: denies suicidal thoughts Homicidal Thoughts: denies homicidal thoughts Hallucinations: no auditory hallucinations and no visual hallucinations Cognition: attention grossly intact and language grossly intact Estimated Intelligence: consistent with education level Insight: + limited insight Judgement: + limited judgement Vital Signs (Past 24 Hours): Last Vital Signs Temp 36.4 C L 01/30/22 07:44 Pulse 72 01/30/22 07:46 Resp 16 01/30/22 07:44 BP 148/90 H 01/30/22 07:44 Pulse Ox 95 01/30/22 07:44 Review of Systems All systems reviewed & are unremarkable except as noted in HPI & below (restless legs, tremor with eating, internal sense of shakiness.) Results & Data ([facility]) Laboratory Results 01/30/22 01/30/22 Range/Units 05:58 05:58 WBC 3.69 L (4.8-10.8) K/uL RBC 4.52 L (4.7-6.1) M/uL Hgb 15.1 D (14.0-18.0) g/dL Hct 42.7 (42-52) % MCV 94.5 (80-100) fL MCH 33.4 (25-34) pg MCHC 35.4 (32-36) g/dL RDW Std Deviation 41.1 (36.4-46.3) fL RDW Coeff of Eloy 12.0 (11.5-14.5) % Plt Count 150 (130-400) K/uL MPV 10.2 (7.4-10.4) fL Immature Gran % (Auto) 0.0 % Neut % (Auto) 41.9 % Lymph % (Auto) 38.5 % [place]berson % (Auto) 13.6 % Eos % (Auto) 5.7 % Baso % (Auto) 0.3 % Neut # (Auto) 1.55 (1.4-6.5) K/uL Lymph # (Auto) 1.42 (1.2-3.4) K/uL [place] # (Auto) 0.50 (0.11-0.59) K/uL Eos # (Auto) 0.21 (0-0.5) K/uL Baso # (Auto) 0.01 (0-0.2) K/uL Immature Gran # (Auto) 0.00 (0.00-0.02) K/uL Sodium 138 (136-145) mmol/L Potassium 3.4 L (3.5-5.1) mmol/L Chloride 104 (98-107) mmol/L Carbon Dioxide 26 (21-32) mmol/L Anion Gap 8 (3-11) BUN 8 (6-23) mg/dl Creatinine 0.82 (0.6-1.4) mg/dl Est Cr Clr Drug Dosing 108.5 ml/min Est GFR ( Amer) 110.6 ml/min Est GFR (Non-Af Amer) 95.4 ml/min BUN/Creatinine Ratio 9.8 L (10-20) Glucose 125 H (70-99(Fasting)) mg/dl Calcium 8.8 (8.5-10.1) mg/dl Total Bilirubin 1.1 H D (0.2-1.0) mg/dl AST 46 H (13-39) U/L ALT 40 (7-52) U/L Alkaline Phosphatase 69 (34-104) U/L Total Protein 6.5 (6.0-8.3) gm/dl Albumin 3.9 (3.4-5.0) gm/dl Globulin 2.6 (2.5-4.0) gm/dl Albumin/Globulin Ratio 1.5 (0.9-2) Medications Administered Clonidine HCl (Clonidine Hcl 0.1 Mg Tab) 0.1 mg PO BID ARABELLA Stop: 02/28/22 09:59 Last Admin: 01/30/22 08:32 Dose: 0.1 mg Documented by: [id number] Admin: 01/29/22 19:47 Dose: 0.1 mg Documented by: [id number] Admin: 01/29/22 11:10 Dose: 0.1 mg Documented by: [id number] Folic Acid (Folic Acid 1 Mg Tab) 1 mg PO DAILY COUNTS INCLUDE 234 BEDS AT THE [facility] Stop: 03/01/22 08:59 Last Admin: 01/30/22 08:33 Dose: 1 mg Documented by: [id number] Gabapentin (Gabapentin 600 Mg Tab) 600 mg PO Q8H COUNTS INCLUDE 234 BEDS AT THE [facility] Stop: 01/30/22 20:16 Last Admin: 01/30/22 04:47 Dose: 600 mg Documented by: [id number] Lactated Ringer's (Lr) 1,000 mls @ 125 mls/hr IV .Q8H COUNTS INCLUDE 234 BEDS AT THE [facility] Stop: 02/28/22 09:39 Last Admin: 01/30/22 03:52 Dose: 125 mls/hr Documented by: [id number] Infusion: 01/30/22 03:46 Dose: 125 mls/hr Documented by: [id number] Admin: 01/29/22 19:46 Dose: 125 mls/hr Documented by: [id number] Infusion: 01/29/22 19:46 Dose: 125 mls/hr Documented by: [id number] Infusion: 01/29/22 13:13 Dose: 125 mls/hr Documented by: [id number] Infusion: 01/29/22 11:06 Dose: 0 mls/hr Documented by: [id number] Admin: 01/29/22 10:13 Dose: 125 mls/hr Documented by: [id number] Lorazepam (Lorazepam 2 Mg/1 Ml Vial) 1 mg IV UD PRN; Protocol PRN Reason: EtOH Withdrawl AWSS Score 6,7 Stop: 02/28/22 09:39 Last Admin: 01/30/22 08:49 Dose: 1 mg Documented by: [id number] Admin: 01/29/22 20:54 Dose: 1 mg Documented by: [id number] Lorazepam (Lorazepam 2 Mg/1 Ml Vial) 2 mg IV UD PRN; Protocol PRN Reason: EtOH Withdrawl AWSS Score 8,9 Stop: 02/28/22 09:39 Last Admin: 01/30/22 06:31 Dose: 2 mg Documented by: [id number] Admin: 01/29/22 10:07 Dose: 2 mg Documented by: [id number] Pantoprazole Sodium (Pantoprazole 40 Mg Tab) 40 mg PO DAILY COUNTS INCLUDE 234 BEDS AT THE [facility] Stop: 02/28/22 09:59 Last Admin: 01/30/22 08:33 Dose: 40 mg Documented by: [id number] Admin: 01/29/22 11:10 Dose: 40 mg Documented by: [id number] Thiamine HCl (Thiamine Hcl 100 Mg Tab) 100 mg PO QAM COUNTS INCLUDE 234 BEDS AT THE [facility] Stop: 03/01/22 08:59 Last Admin: 01/30/22 08:33 Dose: 100 mg Documented by: [id number] Vitamin D (Cholecalciferol 400 Units 10 Mcg Tab) 800 units PO DAILY COUNTS INCLUDE 234 BEDS AT THE [facility] Stop: 02/28/22 10:29 Last Admin: 01/30/22 08:34 Dose: 800 units Documented by: [id number] Admin: 01/29/22 11:10 Dose: 800 units Documented by: [id number] Coding Level of Care Code 20524 [facility] Int[facility] Hosp Care Lvl 2 Diagnoses Alcohol dependence F10.229 Complication of substance-induced condition: with unspecified complication Substance use status: with intoxication Depression F32.9 Depression Type: unspecified
--- NOTE | 2022-01-30 12:56 | Hospitalist Progress Note ---
Date of Service January 30, 2022 Assessment & Plan (1) Alcohol dependence: (2) Alcohol withdrawal: (3) Suicidal ideation: (4) Hypertension: (5) Dyslipidemia: (6) GERD (gastroesophageal reflux disease): (7) Smoker: Plan: This is a 61-year-old male who has significant past medical history of HTN, HLD, alcohol abuse and GERD who presented to ED last evening due to patient wanting help for depression and abusing alcohol. Alcohol abuse Alcohol withdrawal PADMAJA protocol with gabapentin taper As needed IV Ativan Daily folic acid and thiamine Encourage cessation and rehab Depression with initial suicidal ideation Appreciate psychiatry input, patient no longer needs suicide precaution and can be discharged when he is medically stable Hypertension BP mildly elevated, but did not take any medications Continue clonidine start amlodipine 5mg daily (will d/c lisinopril, with his questionable compliance, would not discharge on ACEI) Hyperlipidemia On statin as outpatient, hold Mild transaminitis Statin on hold Likely in setting of alcohol abuse. u/s from 12/2021 shows evidence of hepatomegally and fatty change. Tobacco abuse Encourage smoking cessation Patient currently declines nicotine patch DVT prophylaxis: Ambulate Dispo: PCU Full code PCP: [facility] medicine Admission and Anticipated Discharge Date Admission Date: January 29, 2022 Subjective Patient still requiring ativan Feels anxious, "jittery" Physical Exam Physical Exam: Appears well, no acute distress, somewhat restless Respiratory: breathing comfortably on room air, no wheezing/rhonchi/rales Cardiovascular: regular rate and rhythm, no murmurs/rubs/gallops Gastrointestinal (Abdomen): soft, non tender, non distended Musculoskeletal: no edema Neurologic: awake, alert, spontaneously moving extremities Results & Data Results & Data ([facility]) Vital Signs (Past 12 Hours) Vital Signs Temp Pulse Pulse Resp BP Pulse Ox 01/30/22 10:42 36.7 C 67 18 152/71 H 94 01/30/22 07:46 72 01/30/22 07:44 36.4 C L 80 16 148/90 H 95 01/30/22 03:48 36.5 C 81 20 148/83 H 95 Laboratory Results Short CBC 01/30/22 Range/Units 05:58 WBC 3.69 L (4.8-10.8) K/uL Hgb 15.1 D (14.0-18.0) g/dL Hct 42.7 (42-52) % Plt Count 150 (130-400) K/uL BMP 01/30/22 05:58 Sodium 138 Potassium 3.4 L Chloride 104 Carbon Dioxide 26 BUN 8 Creatinine 0.82 Glucose 125 H Calcium 8.8 Liver Function 01/30/22 Range/Units 05:58 Total Bilirubin 1.1 H D (0.2-1.0) mg/dl AST 46 H (13-39) U/L ALT 40 (7-52) U/L Alkaline Phosphatase 69 (34-104) U/L Albumin 3.9 (3.4-5.0) gm/dl Medications Administered Current Inpatient Medications Al Hydrox/Mg Hydrox/Simethicone (Aluminum/Magnesium Susp 30 Ml Udc) 15 ml PO Q4H PRN PRN Reason: Dyspepsia Stop: 02/28/22 09:39 Clonidine HCl (Clonidine Hcl 0.1 Mg Tab) 0.1 mg PO BID ARABELLA Stop: 02/28/22 09:59 Last Admin: 01/30/22 08:32 Dose: 0.1 mg Documented by: Folic Acid (Folic Acid 1 Mg Tab) 1 mg PO DAILY ARABELLA Stop: 03/01/22 08:59 Last Admin: 01/30/22 08:33 Dose: 1 mg Documented by: Gabapentin (Gabapentin 600 Mg Tab) 600 mg PO Q8H ARABELLA Stop: 01/30/22 20:16 Last Admin: 01/30/22 12:46 Dose: 600 mg Documented by: Gabapentin (Gabapentin 600 Mg Tab) 600 mg PO Q12H ARABELLA Stop: 01/31/22 20:16 Gabapentin (Gabapentin 600 Mg Tab) 600 mg PO Q24H ARABELLA Stop: 02/01/22 20:16 Lorazepam (Lorazepam 2 Mg/1 Ml Vial) 1 mg IV UD PRN; Protocol PRN Reason: EtOH Withdrawl AWSS Score 6,7 Stop: 02/28/22 09:39 Last Admin: 01/30/22 08:49 Dose: 1 mg Documented by: Lorazepam (Lorazepam 2 Mg/1 Ml Vial) 2 mg IV UD PRN; Protocol PRN Reason: EtOH Withdrawl AWSS Score 8,9 Stop: 02/28/22 09:39 Last Admin: 01/30/22 06:31 Dose: 2 mg Documented by: Lorazepam (Lorazepam 2 Mg/1 Ml Vial) 3 mg IV ONCE PRN; Protocol PRN Reason: EtOH Withdrawl AWSS Score >=10 Stop: 02/28/22 09:39 Ondansetron HCl (Ondansetron Inj 2 Mg/Ml 2 Ml Vial) 4 mg IV Q6H PRN PRN Reason: Nausea Stop: 02/28/22 09:39 Pantoprazole Sodium (Pantoprazole 40 Mg Tab) 40 mg PO DAILY [facility] Stop: 02/28/22 09:59 Last Admin: 01/30/22 08:33 Dose: 40 mg Documented by: Polyethylene Glycol (Polyethylene (Miralax) 17 Gm Pack) 17 gm PO DAILY PRN PRN Reason: Constipation Stop: 02/28/22 09:39 Thiamine HCl (Thiamine Hcl 100 Mg Tab) 100 mg PO QAM [facility]1983 Stop: 03/01/22 08:59 Last Admin: 01/30/22 08:33 Dose: 100 mg Documented by: Vitamin D (Cholecalciferol 400 Units 10 Mcg Tab) 800 units PO DAILY [facility] Stop: 02/28/22 10:29 Last Admin: 01/30/22 08:34 Dose: 800 units Documented by: (1) Alcohol dependence Complication of substance-induced condition: with unspecified complication Substance use status: with intoxication Qualified Code(s): F10.229 - Alcohol dependence with intoxication, unspecified (2) Alcohol withdrawal Complication of substance-induced condition: with unspecified complication Qualified Code(s): F10.239 - Alcohol dependence with withdrawal, unspecified (3) GERD (gastroesophageal reflux disease) Esophagitis presence: esophagitis presence not specified Qualified Code(s): K21.9 - Gastro-esophageal reflux disease without esophagitis (4) Hypertension Hypertension type: unspecified Qualified Code(s): I10 - Essential (primary) hypertension
[2022-01-31 06:56] LABS: Albumin Globulin Ratio 1.5 (0.9-2); Albumin Level 4.4 gm/dl (3.4-5.0); BUN Creatinine Ratio 7.7 (10-20); Calcium 9.1 mg/dl (8.5-10.1); Creatinine Clr Calc Pharmacy 113.7 ml/min; Est GFR (African American) 112.9 ml/min; Est GFR (Non-African American) 97.4 ml/min; Globulin 2.9 gm/dl (2.5-4.0); Potassium 3.4 mmol/L (3.5-5.1); Total Protein 7.3 gm/dl (6.0-8.3)
[2022-01-31 06:59] VITALS: PULSE 77; TEMP 97.7; O2SAT 94
[2022-01-31] MEDS: CHOLECALCIFEROL 400 UNITS 10 MCG TAB PO SCH (08:07)
[2022-01-31] MEDS: cloNIDine HCL 0.1 MG TAB PO SCH (08:07)
[2022-01-31] MEDS: PANTOprazole 40 MG TAB PO SCH (08:07)
[2022-01-31] MEDS: THIAMINE HCL 100 MG TAB PO SCH (08:07)
[2022-01-31] MEDS: FOLIC ACID 1 MG TAB PO SCH (08:07)
[2022-01-31] MEDS ORDERED: GABAPENTIN 600 MG TAB PO SCH (08:15)
[2022-01-31] MEDS ORDERED: amLODIPine BESYLATE 5 MG TAB PO SCH ×2 (09:00)
[2022-01-31] MEDS ORDERED: ENOXAPARIN INJ 40 MG/0.4 ML SYR SQ SCH (09:00)
[2022-01-31 09:56] VITALS: BP 142/75
--- NOTE | 2022-01-31 12:54 | Psychiatric Progress Note ---
Date of Service January 31, 2022 Impression / Recommendations Impression 61 yo male with history of substance induced depressive disorder admit with ETOH intoxication/withdrawal. (1) Alcohol dependence: does not meet involuntary commitment criteria under [place] mental health law and 302 warrant is declined/dispositioned. Interval History Identifying Information 61 yo male admit for ETOH detox Chief Complaint notified this am patient being discharged Review of Systems Notes denies tremor, N, etc at this time. Subjective Subjective Patient was seen & assessed and interval progress reviewed with nursing. He continues to deny suicidal ideation. I looked back through his chart and there have been multiple discussions re: guns as he represents himself when sober as a responsible aurelia and does not want any commitments to interfere with his rights. He is aware that EToh can impair impulsivity and judgment when depressed and we recommend guns be removed. He does not have family we are able to engage in this process and he is correct on his rights. He does not meet criteria for 302 commitment as any statements were passive and while intoxicated. He agrees with me that ammo should be stored/locked separately (at minimum). He continues to deny SI and is actually appearing brighter and pleased with plan for him to follow up with [facility]. Physical Exam Psychiatric Orientation: alert and oriented x 3 Apperance: appropriately dressed and appropriately groomed Eye Contact: good eye contact Motor Behavior: no abnormal motor movements Speech: normal rate/rhythm/volume of speech Affect: euthymic affect Mood: + depressed mood ("but feeling alot better") Thought Process: goal directed thought process Thought Content: reality based without delusions Suicidal Thoughts: denies suicidal thoughts Homicidal Thoughts: denies homicidal thoughts Hallucinations: no auditory hallucinations and no visual hallucinations Cognition: attention grossly intact and language grossly intact Vital Signs (Past 24 Hours) Last Vital Signs Temp 36.5 C 01/31/22 09:54 Pulse 77 01/31/22 09:54 Resp 18 01/31/22 09:54 BP 142/75 H 01/31/22 09:54 Pulse Ox 94 01/31/22 09:54 Results & Data ([facility]) Laboratory Results Laboratory Results - last 24 hr 01/31/22 05:57 Sodium 137 Potassium 3.4 L Chloride 103 Carbon Dioxide 25 Anion Gap 9 BUN 6 Creatinine 0.78 Est Cr Clr Drug Dosing 113.7 Est GFR ( Amer) 112.9 Est GFR (Non-Af Amer) 97.4 BUN/Creatinine Ratio 7.7 L Glucose 118 H Calcium 9.1 Total Bilirubin 1.0 AST 66 H ALT 54 H Alkaline Phosphatase 74 Total Protein 7.3 Albumin 4.4 Globulin 2.9 Albumin/Globulin Ratio 1.5 (1) Alcohol dependence Complication of substance-induced condition: with unspecified complication Substance use status: with intoxication Qualified Code(s): F10.229 - Alcohol dependence with intoxication, unspecified
--- NOTE | 2022-01-31 16:14 | Discharge Summary ---
Date of Service January 31, 2022 Admission HPI Per Admitting Provider This is a 61-year-old male who has significant past medical history of HTN, HLD, alcohol abuse and GERD who presented to ED last evening due to patient wanting help for depression and abusing alcohol. History from last evening mostly obtained from ER provider notes. Apparently patient had called 911 and stated he wanted help due to feeling depressed and abusing alcohol. He was advised to go to the ED by the police that he came here voluntarily. Once he arrived to ED he was found to be slightly hypoxic and he was placed on a monitor. After being placed on a monitor he became very combative and wanted to leave. He was also violent with staff. He required physical and chemical restraint. He did tell mental health case management director that he had guns at home and wanted to . Due to this a 302 was obtained due to patient having guns at home and concurrent alcohol abuse. It is recommended he be admitted for medical management of withdrawal and psychiatric evaluation. Advocates patient was recently hospit alized 12/29- due to wanting to pursue alcohol detox and rehab. He was discharged to home with rehab to start on 01/08. Unfortunately he did not go to rehab and relapsed with alcohol. His last drink was last evening. He drinks approximately a 30 pack of beer a day for the past 5 to 6 months. Currently he is thinking about pursuing rehab again. He remains in ED and is much more cooperative. He does feel slightly tremulous but otherwise denies any fever, chills, sweats, lightheadedness, dizziness, chest pain, shortness of breath, cough, nausea, vomiting, abdominal pain, changes bowel or urinary habits. He denies any medication changes since discharge and admits to being compliant with his medications. He currently denies any suicidal or homicidal ideations. Principal Diagnosis Alcohol dependence Alcohol Abuse Alcohol withdrawal Discharge Exam Pleasant, comfortable, feels well. Denies thoughts of self harm. He is goal directed and motivated to follow up for his alcohol problem. He asks appropriate questions and has a follow up with his family doctor in 2 days. Discharge Data Allergies Allergy/AdvReac Type Severity Reaction Status Date / Time No Known Allergies Allergy Verified 12/29/21 15:05 Consultations 01/29/22 07:59 ED Decision to Admit Stat 01/29/22 09:40 Consult Psychiatry Routine Hospital Course (1) Alcohol dependence: (2) Alcohol withdrawal: (3) Suicidal ideation: (4) Hypertension: (5) Dyslipidemia: (6) GERD (gastroesophageal reflux disease): (7) Smoker: This is a 61-year-old male who has significant past medical history of HTN, HLD, alcohol abuse and GERD who presented to ED 01/29 due to patient wanting help for depression and abusing alcohol. Alcohol abuse Alcohol withdrawal -No longer in withdrawal -last BZD dose was 24 hours prior -will go home to finish gabapentin taper which will be completed 02/01 -patient will follow up with [facility] to seek alcohol counseling Depression with initial suicidal ideation Appreciate psychiatry input, patient does not meet 302 involuntary commitment criteria. Hypertension -with his history of alcohol abuse, he is at increased risk of dehydration and NABILA while on lisinopril so lisinopril was discontinued. -he was started on amlodipine 10mg daily and continued on clonidine while here -follow up with PCP for further blood pressure management Hyperlipidemia Mild transaminitis -Atorvastatin held while here and discontinued at discharge due to transaminitis. Patient counseled to follow up with his PCP for repeat LFTs and resumption of statin once LFTs normalize -Transaminitis in setting of alcohol abuse. Ultrasound from 12/2021 shows evidence of hepatomegally and fatty change. Tobacco abuse Encourage smoking cessation Patient was discharged home in stable condition once he is sober and no longer having withdrawal symptoms. He was counseled extensively to remain sober and to seek counseling for his alcohol dependence. Total Time Total Time Spent Total Time Spent (In Minutes): 40 Discharge Plan Discharge Items Patient Disposition: Home - Self-Care Reason For Visit: ALCOHOL WITHDRAWAL Discharge Diagnosis: Alcohol dependence Alcohol Abuse Alcohol withdrawal Condition on Discharge: Good Activity: Resume your previous activity Non-emergency contact: Primary Care Provider Call non-emergency contact if: you have any medication questions Follow-up/Referrals: [facility],Medicine [Primary Care Provider] - Diet: Regular Addtl Attending Provider Instructions: Please consider alcohol rehab You will go home to finish a Gabapentin Taper. 02/01 is your last day Your Lisinopril will be discontinued. Instead, you were started on amlodipine 10mg daily for your blood pressure. Your atorvastatin (cholesterol) medicine was discontinued for the time being because of elevations in your liver enzyme (AST 66, ALT 54). Your liver enzymes are elevated because of your drinking. Please follow up with your primary care physician to decide whether your atorvastatin can be restarted Pending Studies at Discharge: No Stand-Alone Forms: My [facility], Smoking Cessation Medications and DC Order Prescriptions: New amlodipine 10 mg tablet 10 mg PO DAILY Qty: 30 RF: 0 gabapentin 600 mg tablet 600 mg PO BID Qty: 2 RF: 0 Continued omeprazole 20 mg Tablet,Delayed Release (Dr/Ec) 40 mg PO DAILY RF: 0 clonidine HCl 0.1 mg tablet 0.1 mg PO BID Qty: 0 RF: 0 vitamin B complex Tablet Extended Release 1 tab PO DAILY RF: 0 cholecalciferol (vitamin D3) 10 mcg (400 unit) Tablet,Chewable 20 mcg PO DAILY RF: 0 nicotine [Nicoderm CQ] 21 mg/24 hr Patch 24 Hour 21 mg transdermal QAM Qty: 28 RF: 0 thiamine HCl (vitamin B1) 100 mg Tablet 100 mg PO QAM Qty: 30 RF: 0 folic acid 1 mg tablet 1 mg PO DAILY Qty: 30 RF: 0 Discontinued lisinopril 20 mg Tablet 20 mg PO DAILY RF: 0 atorvastatin [Lipitor] 40 mg Tablet 40 mg PO HS RF: 0 Discharge Orders: Discharge Order (Routine); Ordered 01/31/22 Ordered By: Zohreh Vicente/Other Patient Handouts: Alcoholism Resources, Addiction: Getting Help Admission Data Admit Date/Time: 01/29/22 08:05 Attending Provider: Zohreh Grijalva Admit Provider: Zohreh Grijalva Primary Care Provider: [facility],Medicine Other Providers: Zohreh Grijalva ; Yary Villagran ; Roxanna Pendleton ; Felicity Watson Other Interventions: Discharge Summary Assessment (RN) Last Done: 01/31/22 09:54
[2022-02-01] MEDS ORDERED: GABAPENTIN 600 MG TAB PO SCH (20:15)
== END 2022-01-31 10:57 | disposition home or self-care (01) | DRG 897 ==
LOC: ED 21:24 → 2E 01-29 08:05

== ENCOUNTER 2022-03-02 13:39 | Inpatient (IN) ==
[2022-03-02] MEDS ORDERED: chlordiazePOXIDE HCl 25 MG CAP PO ONE (14:29)
[2022-03-02] MEDS ORDERED: MULTI-VITAMIN INFUSION 10 ML, THIAMINE HCL 100 MG, FOLIC ACID 1 MG in SODIUM CHLORIDE 0... IV ONE (14:29)
[2022-03-02] MEDS ORDERED: ONDANSETRON INJ 2 MG/ML 2 ML VIAL IV STA (14:29)
[2022-03-02] MEDS ORDERED: SODIUM CHLORIDE 0.9% 500 ML IV SCH (14:30)
--- NOTE | 2022-03-02 14:38 | Emergency Department Note ---
Impression & Plan Alcohol abuse, Depressed, Alcohol withdrawal, Acute hyponatremia ED Provider Note NAME: ROBI WREN AGE: 61 SEX: M : 1960 ARRIVES VIA: Walk-In INFORMANT: [Patient] ED PROVIDER(S): [Naif Wiggins MD] CHIEF COMPLAINT: Detox request HISTORY OF PRESENT ILLNESS: The patient is a 61-year-old male who presents to the ER with complaints of needing alcohol detox. The patient is an alcoholic and typically drinks about 24 beers per day. The patient last drank just a short time ago. The patient [facility]. They sent the patient here for his alcohol abuse and for withdrawal/rehab. The patient would like to get off of alcohol. He has been inpatient before. The patient has vomiting and diarrhea every day. He denies any current pain. There has been no fever or shortness of breath. The patient is tearful at times discussing his situation. He states that he has nothing to live for and when he leaves the hospital sober, he goes back to drinking alcohol to cope. REVIEW OF SYSTEMS: See HPI for pertinent positives and negatives. A total of ten systems were reviewed and were otherwise negative. PMHx/PSHx: See Below SOCIAL HISTORY: See Below. PHYSICAL EXAM: GENERAL: Patient is in no acute distress. HEENT: No acute trauma, normocephalic atraumatic, mucous membranes moist, no nasal congestion, no scleral icterus. NECK: No stridor, no adenopathy, no meningismus, trachea is midline. LUNGS: Clear to auscultation bilaterally, no wheeze, no rhonchi, breath sounds equal. HEART: Without murmurs gallops or rubs, regular rate and rhythm. ABDOMEN: Soft, nontender, bowel sounds positive, no hernias, no peritonitis. EXTREMITIES: No cyanosis or edema, full range of motion of all the joints without pain or difficulty, no signs for acute trauma. NEUROLOGIC: Oriented x 3, no acute motor or sensory deficits, no focal weakness. SKIN: No rash, no jaundice, no diaphoresis. Psychiatric: Tearful, admits to feeling depressed. States he has nothing really to live for. Voluntary. DIFFERENTIAL DIAGNOSIS: Depression, anxiety, alcohol abuse, alcohol withdrawal, liver or renal failure, dehydration, electrolyte imbalance, psychosis, suicidality, among others. EMERGENCY DEPARTMENT COURSE/PROCEDURES: ECG: Indication was weakness. ECG shows a normal sinus rhythm with a rate of 69. There is some subtle ST elevation to the anterior and lateral leads likely consistent with repolarization. There is no PVC. QTC is 417. Continuous Cardiac Monitoring: An order was placed for continuous cardiac monitoring. The monitor shows a rate of 67 with normal sinus rhythm. MEDICAL DECISION MAKING: There is no leukocytosis or concerning anemia. There is a normal platelet count. Sodium is low at 126. There was a subtle anion gap, likely consistent with his alcohol use. A mild acidosis was suggested on renal panel testing, likely from his alcohol abuse. There were some subtle liver enzyme elevations, likely from chronic alcohol use. No pancreatitis. Patient appeared to be in a euthyroid state. Urinalysis did not show infection. Aspirin, Tylenol levels were undetectable. Alcohol level was elevated at 228. COVID test returned negative. Urine tox was negative. Chest x-ray did not show pneumonia or CHF. On exam, the patient was tearful, he was cooperative. He admits to drinking too much alcohol. The patient received a liter of IV saline mixed with multivitamins, thiamine and folate. He was given a 500 cc saline bolus as well. He received IV Zofran, oral Librium. The patient has a history of alcohol abuse. He is here for abuse and withdrawal. He was found to be hyponatremic on our testing. The patient is in need of a hospital stay. He is not stable for discharge home. He eventually would certainly benefit from inpatient rehab once stabilized. I spoke with the patient and casework specialist. The on-call hospitalist was consulted. Past Med/Surg History Medical History Alcohol dependence Alcohol withdrawal Anxiety Depression Dyslipidemia GERD (gastroesophageal reflux disease) Hypertension Mood disorder Smoker Suicidal ideation Suicidal thoughts Surgical History No history of previous surgery Family History Father , age 70 from [place] Coronary heart disease Social History Smoking Status: Current every day smoker Tobacco Type: Cigarettes Cigarettes Per Day: 0.5 pack daily; Second Hand Exposure: No; Hx Alcohol Use: Yes Alcohol type: beer Alcohol Intake Frequency Comment: case of beer a day Hx Substance Use: No Preferred Language: Japanese Communication Ability: Effective Heel Builder Machine Required: No Beliefs That Will Affect Care: None marital status: Current Living Situation: Alone Current Living Situation Comment: pt states lives in large farmhouse where two brothers unrelated to him live Feels Safe at Home: Yes Safety Concerns: Feels Safe At This Time Assistive Devices: Glasses Allergies Allergies Allergy/AdvReac Type Severity Reaction Status Date / Time No Known Allergies Allergy Verified 03/02/22 17:21 Home Meds Home Medications Medication Instructions Recorded Confirmed omeprazole 20 mg tablet,delayed 40 mg PO DAILY 03/16/20 03/02/22 release cholecalciferol (vitamin D3) 10 20 mcg PO DAILY 06/02/20 03/02/22 mcg (400 unit) chewable tablet vitamin B complex 1 tab PO DAILY 12/08/20 03/02/22 lisinopril 10 mg tablet 20 mg PO DAILY 03/02/22 03/02/22 Previous Rx's Medication Instructions Recorded clonidine HCl 0.1 mg tablet 0.1 mg PO BID #0 tab 03/19/20 folic acid 1 mg tablet 1 mg PO DAILY #30 tab 01/03/22 thiamine HCl (vitamin B1) 100 mg 100 mg PO QAM #30 tab 01/03/22 tablet Results & Data (ED) Vital Signs Vital Signs - 24 hr 03/02/22 13:53 03/02/22 14:50 03/02/22 15:00 Temperature 36.5 C Temperature Source Oral Pulse Rate 77 69 67 Pulse Rhythm Regular Pulse Strength Normal Respiratory Rate 18 22 18 Respiratory Effort / Characteristics Non-Labored Spontaneous Respiratory Depth Normal Respiratory Pattern Regular Blood Pressure 135/82 127/72 108/74 Blood Pressure Mean 99 90 85 Blood Pressure Position Sitting Pulse Oximetry 96 97 98 Oxygen Delivery Method Room Air Sepsis Recent Fever Within 48 Hours No Sepsis New/Unexplained Change in Mental Status No Sepsis Action Taken by Nursing No Action Required 03/02/22 16:00 03/02/22 16:30 Temperature Temperature Source Pulse Rate 85 75 Pulse Rhythm Pulse Strength Respiratory Rate 16 17 Respiratory Effort / Characteristics Respiratory Depth Respiratory Pattern Blood Pressure 152/94 H 135/74 Blood Pressure Mean 113 94 Blood Pressure Position Pulse Oximetry 97 97 Oxygen Delivery Method Sepsis Recent Fever Within 48 Hours Sepsis New/Unexplained Change in Mental Status Sepsis Action Taken by [facility] Medications Current Medication List: was personally reviewed by me Laboratory Data Attestation: I reviewed the patient's lab results. Result diagrams: 03/02/22 14:20 03/02/22 14:20 Lab Results 03/02/22 03/02/22 03/02/22 Range/Units 14:20 14:20 14:20 WBC 6.37 (4.8-10.8) K/uL RBC 4.95 (4.7-6.1) M/uL Hgb 16.7 (14.0-18.0) g/dL Hct 45.5 (42-52) % MCV 91.9 (80-100) fL MCH 33.7 (25-34) pg MCHC 36.7 H (32-36) g/dL RDW Std Deviation 41.8 (36.4-46.3) fL RDW Coeff of Eloy 12.5 (11.5-14.5) % Plt Count 175 (130-400) K/uL MPV 9.9 (7.4-10.4) fL Immature Gran % (Auto) 0.2 % Neut % (Auto) 46.9 % Lymph % (Auto) 40.8 % [place] % (Auto) 10.5 % Eos % (Auto) 1.1 % Baso % (Auto) 0.5 % Neut # (Auto) 2.99 (1.4-6.5) K/uL Lymph # (Auto) 2.60 (1.2-3.4) K/uL [place] # (Auto) 0.67 H (0.11-0.59) K/uL Eos # (Auto) 0.07 (0-0.5) K/uL Baso # (Auto) 0.03 (0-0.2) K/uL Immature Gran # (Auto) 0.01 (0.00-0.02) K/uL Sodium 126 L (136-145) mmol/L Potassium 3.5 (3.5-5.1) mmol/L Chloride 92 L (98-107) mmol/L Carbon Dioxide 20 L (21-32) mmol/L Anion Gap 14 H (3-11) BUN 13 (6-23) mg/dl Creatinine 1.14 (0.6-1.4) mg/dl Est Cr Clr Drug Dosing 78.5 ml/min Est GFR ( Amer) 80.0 ml/min Est GFR (Non-Af Amer) 69.0 ml/min BUN/Creatinine Ratio 11.4 (10-20) Glucose 103 H (70-99(Fasting)) mg/dl Osmolality (280-300) mOsm/kg Calcium 9.0 (8.5-10.1) mg/dl Magnesium 1.9 (1.7-2.4) mg/dl Total Bilirubin 1.1 H (0.2-1.0) mg/dl AST 51 H (13-39) U/L ALT 55 H (7-52) U/L Alkaline Phosphatase 72 (34-104) U/L Total Protein 7.7 (6.0-8.3) gm/dl Albumin 4.7 (3.4-5.0) gm/dl Globulin 3.0 (2.5-4.0) gm/dl Albumin/Globulin Ratio 1.6 (0.9-2) Lipase 63 (11-82) U/L TSH 1.715 (0.300-4.500) uIu/ml Urine Color Urine Appearance (Clear) Urine pH (4.5-7.5) Ur Specific [place] (1.000-1.030) Urine Protein (Negative) Urine Glucose (UA) (Negative) Urine Ketones (Negative) Urine Blood (Negative) Urine Nitrite (Negative) Urine Bilirubin (Negative) Urine Urobilinogen (Negative) Ur Leukocyte Esterase (Negative) Salicylates (3.0-30) mg/dl Urine Opiates Screen (Neg) Ur Methadone, Qual (Neg) Acetaminophen (10-30) ug/ml Urine Barbiturates (Neg) Ur Phencyclidine (PCP) (Neg) U Amphetamin/Meth Scrn (Neg) MDMA (Ecstasy) Screen (Neg) U Benzodiazepines Scrn (Neg) Ur Cocaine Metabolite (Neg) U Marijuana (THC) Screen (Neg) Ethyl Alcohol mg/dL (<10.0) mg/dl SARS-CoV-2, RNA, NAAT (NEGATIVE) 03/02/22 03/02/22 03/02/22 Range/Units 14:20 14:20 14:20 WBC (4.8-10.8) K/uL RBC (4.7-6.1) M/uL Hgb (14.0-18.0) g/dL Hct (42-52) % MCV (80-100) fL MCH (25-34) pg MCHC (32-36) g/dL RDW Std Deviation (36.4-46.3) fL RDW Coeff of Eloy (11.5-14.5) % Plt Count (130-400) K/uL MPV (7.4-10.4) fL Immature Gran % (Auto) % Neut % (Auto) % Lymph % (Auto) % Sandoval % (Auto) % Eos % (Auto) % Baso % (Auto) % Neut # (Auto) (1.4-6.5) K/uL Lymph # (Auto) (1.2-3.4) K/uL [place] # (Auto) (0.11-0.59) K/uL Eos # (Auto) (0-0.5) K/uL Baso # (Auto) (0-0.2) K/uL Immature Gran # (Auto) (0.00-0.02) K/uL Sodium (136-145) mmol/L Potassium (3.5-5.1) mmol/L Chloride (98-107) mmol/L Carbon Dioxide (21-32) mmol/L Anion Gap (3-11) BUN (6-23) mg/dl Creatinine (0.6-1.4) mg/dl Est Cr Clr Drug Dosing ml/min Est GFR ( Amer) ml/min Est GFR (Non-Af Amer) ml/min BUN/Creatinine Ratio (10-20) Glucose (70-99(Fasting)) mg/dl Osmolality 326 H (280-300) mOsm/kg Calcium (8.5-10.1) mg/dl Magnesium (1.7-2.4) mg/dl Total Bilirubin (0.2-1.0) mg/dl AST (13-39) U/L ALT (7-52) U/L Alkaline Phosphatase (34-104) U/L Total Protein (6.0-8.3) gm/dl Albumin (3.4-5.0) gm/dl Globulin (2.5-4.0) gm/dl Albumin/Globulin Ratio (0.9-2) Lipase (11-82) U/L TSH (0.300-4.500) uIu/ml Urine Color Urine Appearance (Clear) Urine pH (4.5-7.5) Ur Specific [place] (1.000-1.030) Urine Protein (Negative) Urine Glucose (UA) (Negative) Urine Ketones (Negative) Urine Blood (Negative) Urine Nitrite (Negative) Urine Bilirubin (Negative) Urine Urobilinogen (Negative) Ur Leukocyte Esterase (Negative) Salicylates < 3.0 L (3.0-30) mg/dl Urine Opiates Screen (Neg) Ur Methadone, Qual (Neg) Acetaminophen < 3 L (10-30) ug/ml Urine Barbiturates (Neg) Ur Phencyclidine (PCP) (Neg) U Amphetamin/Meth Scrn (Neg) MDMA (Ecstasy) Screen (Neg) U Benzodiazepines Scrn (Neg) Ur Cocaine Metabolite (Neg) U Marijuana (THC) Screen (Neg) Ethyl Alcohol mg/dL 228.6 H (<10.0) mg/dl SARS-CoV-2, RNA, NAAT (NEGATIVE) 03/02/22 03/02/22 03/02/22 Range/Units 15:09 16:35 16:35 WBC (4.8-10.8) K/uL RBC (4.7-6.1) M/uL Hgb (14.0-18.0) g/dL Hct (42-52) % MCV (80-100) fL MCH (25-34) pg MCHC (32-36) g/dL RDW Std Deviation (36.4-46.3) fL RDW Coeff of Eloy (11.5-14.5) % Plt Count (130-400) K/uL MPV (7.4-10.4) fL Immature Gran % (Auto) % Neut % (Auto) % Lymph % (Auto) % Sandoval % (Auto) % Eos % (Auto) % Baso % (Auto) % Neut # (Auto) (1.4-6.5) K/uL Lymph # (Auto) (1.2-3.4) K/uL [place] # (Auto) (0.11-0.59) K/uL Eos # (Auto) (0-0.5) K/uL Baso # (Auto) (0-0.2) K/uL Immature Gran # (Auto) (0.00-0.02) K/uL Sodium (136-145) mmol/L Potassium (3.5-5.1) mmol/L Chloride (98-107) mmol/L Carbon Dioxide (21-32) mmol/L Anion Gap (3-11) BUN (6-23) mg/dl Creatinine (0.6-1.4) mg/dl Est Cr Clr Drug Dosing ml/min Est GFR ( Amer) ml/min Est GFR (Non-Af Amer) ml/min BUN/Creatinine Ratio (10-20) Glucose (70-99(Fasting)) mg/dl Osmolality (280-300) mOsm/kg Calcium (8.5-10.1) mg/dl Magnesium (1.7-2.4) mg/dl Total Bilirubin (0.2-1.0) mg/dl AST (13-39) U/L ALT (7-52) U/L Alkaline Phosphatase (34-104) U/L Total Protein (6.0-8.3) gm/dl Albumin (3.4-5.0) gm/dl Globulin (2.5-4.0) gm/dl Albumin/Globulin Ratio (0.9-2) Lipase (11-82) U/L TSH (0.300-4.500) uIu/ml Urine Color Yellow Urine Appearance Clear (Clear) Urine pH 5.0 (4.5-7.5) Ur Specific [place] 1.004 (1.000-1.030) Urine Protein Negative (Negative) Urine Glucose (UA) Negative (Negative) Urine Ketones Negative (Negative) Urine Blood Negative (Negative) Urine Nitrite Negative (Negative) Urine Bilirubin Negative (Negative) Urine Urobilinogen Negative (Negative) Ur Leukocyte Esterase Negative (Negative) Salicylates (3.0-30) mg/dl Urine Opiates Screen Neg (Neg) Ur Methadone, Qual Neg (Neg) Acetaminophen (10-30) ug/ml Urine Barbiturates Neg (Neg) Ur Phencyclidine (PCP) Neg (Neg) U Amphetamin/Meth Scrn Neg (Neg) MDMA (Ecstasy) Screen Neg (Neg) U Benzodiazepines Scrn Neg (Neg) Ur Cocaine Metabolite Neg (Neg) U Marijuana (THC) Screen Neg (Neg) Ethyl Alcohol mg/dL (<10.0) mg/dl SARS-CoV-2, RNA, NAAT NEGATIVE (NEGATIVE) Administered Medications Clonidine HCl (Clonidine Hcl 0.1 Mg Tab) 0.1 mg PO BID ARABELLA Stop: 04/01/22 20:59 Last Admin: 03/02/22 21:22 Dose: 0.1 mg Documented by: [id number] Folic Acid (Folic Acid 1 Mg Tab) 1 mg PO QAM ARABELLA Stop: 04/01/22 19:57 Last Admin: 03/02/22 21:22 Dose: 1 mg Documented by: [id number] Sodium Chloride (Nss 1000ml) 1,000 mls @ 125 mls/hr IV .Q8H ARABELLA Stop: 04/01/22 17:46 Last Admin: 03/02/22 17:51 Dose: 125 mls/hr Documented by: [id number] Thiamine HCl (Thiamine Hcl 100 Mg Tab) 100 mg PO QAM [facility] Stop: 04/01/22 19:57 Last Admin: 03/02/22 21:22 Dose: 100 mg Documented by: [id number] Discontinued Medications Chlordiazepoxide HCl (Chlordiazepoxide Hcl 25 Mg Cap) 50 mg PO NOW ONE Stop: 03/02/22 14:30 Last Admin: 03/02/22 14:57 Dose: 50 mg Documented by: [id number] Gabapentin (Gabapentin 600 Mg Tab) 1,200 mg PO NOW ONE Stop: 03/02/22 20:27 Last Admin: 03/02/22 21:21 Dose: 1,200 mg Documented by: [id number] Multivitamins 10 ml/ Thiamine HCl 100 mg/ Folic Acid 1 mg/Sodium Chloride 1,011.2 mls @ 1,011.2 mls/hr IV .Q1H ONE Stop: 03/02/22 15:28 Last Infusion: 03/02/22 16:13 Dose: 0 mls/hr Documented by: [id number] Admin: 03/02/22 14:57 Dose: 1,011.2 mls/hr Documented by: [id number] Sodium Chloride (Nss) 500 mls @ 999 mls/hr IV .Q31M ARABELLA Stop: 03/02/22 15:00 Last Infusion: 03/02/22 15:43 Dose: 0 mls/hr Documented by: [id number] Admin: 03/02/22 14:57 Dose: 999 mls/hr Documented by: [id number] Ondansetron HCl (Ondansetron Inj 2 Mg/Ml 2 Ml Vial) 4 mg IV NOW STA Stop: 03/02/22 14:30 Last Admin: 03/02/22 14:57 Dose: 4 mg Documented by: [id number] Imaging Data Radiologist's Impression: Chest X-Ray 03/02/22 14:30 XR chest 1V portable CLINICAL HISTORY: weakness TECHNIQUE: Single frontal radiograph of the chest was obtained. Comparison: Comparison is made to chest radiograph 10/27/2021 FINDINGS: No lines and tubes are seen. Old healed rib fractures are seen on the right. The cardiomediastinal silhouette is normal. Lungs are underinflated but clear. No evidence of pleural effusion or pneumothorax. IMPRESSION: No acute chest disease. ACT 112: Negative or not required by law. Electronically signed by: Ranjan Darling M.D. 03/02/2022 2:49 PM Discharge Plan Visit Data Chief Complaint: Detox Request Stated Complaint: ALCOHOL ABUSE ED Provider: Naif Wiggins Discharge Problem: Alcohol abuse, Depressed, Alcohol withdrawal, Acute hyponatremia Patient Disposition: Admitted As Inpatient Condition: Fair Discharge Instructions Interventions: ED Discharge Assessment Last Done: 03/02/22 19:40
--- NOTE | 2022-03-02 14:50 | XRay Report ---
XR chest 1V portable CLINICAL HISTORY: weakness TECHNIQUE: Single frontal radiograph of the chest was obtained. Comparison: Comparison is made to chest radiograph 10/27/2021 FINDINGS: No lines and tubes are seen. Old healed rib fractures are seen on the right. The cardiomediastinal si lhouette is normal. Lungs are underinflated but clear. No evidence of pleural effusion or pneumothora x. IMPRESSION: No acute chest disease. ACT 112: Negative or not required by law. Electronically signed by: Ranjan Darling M.D. 03/02/2022 2:49 PM
[2022-03-02 15:02] LABS: Basophils # (auto) 0.03 K/uL (0-0.2); Basophils % (auto) 0.5 %; Eosinophils # (auto) 0.07 K/uL (0-0.5); Eosinophils % (auto) 1.1 %; Hematocrit (blood only) 45.5 % (42-52); Hemoglobin 16.7 g/dL (14.0-18.0); Immature Granulocytes # (auto) 0.01 K/uL (0.00-0.02); Immature Granulocytes % (auto) 0.2 %; Lymphocytes % (auto) 40.8 %; Mean Corpuscular Hemoglobin 33.7 pg (25-34); Mean Corpuscular Hgb Conc 36.7 g/dL (32-36); Mean Corpuscular Volume 91.9 fL (80-100); Mean Platelet Volume 9.9 fL (7.4-10.4); Monocytes # (auto) 0.67 K/uL (0.11-0.59); Monocytes % (auto) 10.5 %; Neutrophils # (auto) 2.99 K/uL (1.4-6.5); Neutrophils % (auto) 46.9 %; Platelet Count 175 K/uL (130-400); RDW Coefficient of Variation 12.5 % (11.5-14.5); RDW Standard Deviation 41.8 fL (36.4-46.3); Red Blood Count 4.95 M/uL (4.7-6.1); White Blood Count 6.37 K/uL (4.8-10.8)
--- NOTE | 2022-03-02 15:09 | Electrocardiogram Report ---
Test Reason : Blood Pressure : / mmHG Vent. Rate : 069 BPM Atrial Rate : 069 BPM P-R Int : 182 ms QRS Dur : 100 ms QT Int : 390 ms P-R-T Axes : 049 021 027 degrees QTc Int : 417 ms Normal sinus rhythm Poor R wave progression, consider anterior VA vs. lead placement vs. LVH Abnormal ECG When compared with ECG of 29-DEC-2021 13:07, No significant change was found Confirmed by Lul Espinoza ([id number]) on 03/02/2022 3:09:01 PM Referred By: REFERRED SELF Confirmed By:Lul Espinoza
[2022-03-02 15:22] LABS: Acetaminophen < 3 ug/ml (10-30); Salicylate < 3.0 mg/dl (3.0-30)
[2022-03-02 15:24] LABS: Albumin Globulin Ratio 1.6 (0.9-2); Albumin Level 4.7 gm/dl (3.4-5.0); BUN Creatinine Ratio 11.4 (10-20); Bilirubin,Total 1.1 mg/dl (0.2-1.0); Creatinine Clr Calc Pharmacy 78.5 ml/min; Magnesium 1.9 mg/dl (1.7-2.4); Potassium 3.5 mmol/L (3.5-5.1); Total Protein 7.7 gm/dl (6.0-8.3)
[2022-03-02 16:55] LABS: Appearance Urine Clear (Clear); Bilirubin Urine Negative (Negative); Blood Urine Negative (Negative); Color Urine Yellow; Glucose Urine UA Negative (Negative); Ketones Urine Negative (Negative); Leukocyte Esterase Urine Negative (Negative); Nitrite Urine Negative (Negative); Protein Urine Negative (Negative); Specific Gravity Urine 1.004 (1.000-1.030); Urobilinogen Urine Negative (Negative)
--- NOTE | 2022-03-02 17:37 | History & Physical Report ---
Date of Service March 02, 2022 Assessment & Plan (1) Alcohol dependence: (2) Depression: (3) Tobacco use: (4) Hyponatremia: (5) Metabolic acidosis, increased anion gap: Plan: This is a 61-year-old male who has significant past medical history of HTN, HLD, alcohol abuse and GERD who presented to ED last evening due to patient wanting help for depression and abusing alcohol. Alcohol abuse Alcohol withdrawal Metabolic acidosis with increased anion gap due to alcohol Admit to PCU PADMAJA as protocol with gabapentin taper As needed IV Ativan IVF 125cc/hr Daily folic acid and thiamine Discussed cessation, pt currently interested in inpt rehab also discussed OP AA meetings for extra support Depression ongoing, denies suicidal or homicidal ideation Consult psychiatry to discuss initiation therapy also discussed establishing out pt counseling through [facility] Hyponatremia obtain urine studies likely 2/2 to alcohol use continue IVF, follow BMP, previously had been 133-134 in past currently 126 repeat bmp this evening Hypertension Bp stable pt did not start amlodipine like prescribed at last D/C he is taking lisinopril and clonidine will continue and monitor Hyperlipidemia statin currently on hold from previous admission due to elevated LFTS Mild transaminitis Statin on hold Likely in setting of alcohol abuse US from 12/29 shows evidence of hepatomegally and fatty change. Tobacco abuse Encourage smoking cessation Patient currently declines nicotine patch DVT prophylaxis:Ambulate Dispo: PCU, CM consulted for inpt rehab, also pt should establish with outpt counseling in regards to depression in available through [facility] Full code PCP: [facility] Patient was seen and examined in collaboration with Dr. Edgar, please see addendum History of Present Illness Chief Complaint: Detox request, last drink ROTARY DRIER. Primary Care Provider: [facility] This is a 61-year-old male who has significant past medical history of HTN, HLD, alcohol abuse and GERD who presented to ED wanting help for depression and abusing alcohol. Patient was recently hospitalized 01/29-01/31 secondary to alcohol abuse and suicidal ideation. His hospitalization was uneventful as he was treated with gabapentin taper and IV Ativan as needed. During hospitalization his lisinopril was stopped and he was placed on amlodipine. His atorvastatin was also discontinued due to elevated LFTs. He states he remained sober for approximately 1 week. He lives alone at home, but in a big farm house that also has 2 other residents. Due to underlying depression he states that he resorted back to alcohol and started drinking 1 case of beer a day. His last drink was prior to arrival. He states he has not ate or drank anything other than alcohol for approximately 4 days. He denies any inciting events for his worsening depression, but feels his depression is unchanged from last hospitalization. He overall feels down and tearful. He denies any recent illness. He denies any suicidal or homicidal ideations. He does admit to being treated for depression in the past, but nothing recently. He also does not partake in outpatient counseling. He previously entertained alcohol rehab, but did not go. He also has not tried outpatient AA meetings. At this point in time he is interested in inpatient rehab as well as AA meetings. He denies any emotional support at home with family or friends. In regards to his medication he did not start his new medication amlodipine, and resorted back to lisinopril and clonidine. He also stopped taking his multivitamins. He denies any recent fever, chills, sweats, lightheadedness, dizziness, syncope, chest pain, shortness breath, cough, URI symptoms, nausea, vomiting, abdominal pain. He denies any prior history of seizures or DTs. In ED he remained hemodynamically stable. He received a banana bag and chlordiazepoxide. His lab work was significant for hyponatremia at 126, low chloride at 92, elevated anion gap at 14, AST and ALT at 51 & 55 respectively and alcohol level of 228.6. Allergies Allergy/AdvReac Type Severity Reaction Status Date / Time No Known Allergies Allergy Verified 03/02/22 17:21 Home Medications Medication Instructions Recorded Confirmed Type omeprazole 20 mg tablet,delayed 40 mg PO DAILY 03/16/20 03/02/22 History release clonidine HCl 0.1 mg tablet 0.1 mg PO BID #0 tab 03/19/20 03/02/22 Rx cholecalciferol (vitamin D3) 10 20 mcg PO DAILY 06/02/20 03/02/22 History mcg (400 unit) chewable tablet vitamin B complex 1 tab PO DAILY 12/08/20 03/02/22 History folic acid 1 mg tablet 1 mg PO DAILY #30 tab 01/03/22 03/02/22 Rx thiamine HCl (vitamin B1) 100 mg 100 mg PO QAM #30 tab 01/03/22 03/02/22 Rx tablet lisinopril 10 mg tablet 20 mg PO DAILY 03/02/22 03/02/22 History Past Med/Surg History Medical History Alcohol dependence Alcohol withdrawal Anxiety Depression Dyslipidemia GERD (gastroesophageal reflux disease) Hypertension Mood disorder Smoker Suicidal ideation Suicidal thoughts Surgical History No history of previous surgery Family History Father , age 70 from [place] Coronary heart disease Social History (Updated 03/02/22 @ 17:28 by Orquidea Espinal PA-C) Smoking Status: Current every day smoker Tobacco Type: Cigarettes Cigarettes Per Day: 8; Second Hand Exposure: No; Hx Alcohol Use: Yes Alcohol type: beer Alcohol Intake Frequency Comment: case of beer a day Hx Substance Use: No Preferred Language: Russian Communication Ability: Effective Linseed Oil Temperer Required: No Beliefs That Will Affect Care: None marital status: Current Living Situation: Alone Current Living Situation Comment: pt states lives in large farmhouse where two brothers unrelated to him live Feels Safe at Home: Yes Assistive Devices: Glasses Review of Systems Review of Systems: All systems reviewed & are unremarkable except as noted in HPI & below Physical Exam Physical Exam: Constitutional: WD/WN, vitals as above, NAD, sitting up in bed, pleasant, conversing easily, appears down, but not tearful Head: Normocephalic, Atraumatic Eyes: PERRL, conjunctivae normal, anicteric sclerae ENMT: external ear and nose normal, oropharynx normal Neck: trachea midline, no thyromegaly normal visual inspection Respiratory: normal respiratory effort, lungs clear to auscultation, no wheeze, rales, rhonchi. Normal insp/exp effort, no accessory muscle use Cardiovascular: RRR, no murmur, no edema Vessels: no JVD or carotid bruit Chest: normal inspection of chest Abdomen: normal bowel sounds, soft, nontender, no hepatosplenomegaly Musculoskeletal: no cyanosis or clubbing, extremities motor strength 5/5 Skin: no rashes, warm and dry normal turgor Neurologic: PERRL, EOMI, accommodation nl, no face palsy, no dysarthria CN's II-XI intact bilaterally and moves all extremities Psychiatric: A+Ox3, dysthymic affect Lymphatic: no cervical or axillary lymphadenopathy : deferred Results & Data Results & Data ([facility]) Vital Signs (Past 12 Hours) Vital Signs Temp Pulse Resp BP Pulse Ox 03/02/22 16:30 75 17 135/74 97 03/02/22 16:00 85 16 152/94 H 97 03/02/22 15:00 67 18 108/74 98 03/02/22 14:50 69 22 127/72 97 03/02/22 13:53 36.5 C 77 18 135/82 96 Diagnostic Findings Chest X-Ray 03/02/22 14:30 XR chest 1V portable CLINICAL HISTORY: weakness TECHNIQUE: Single frontal radiograph of the chest was obtained. Comparison: Comparison is made to chest radiograph 10/27/2021 FINDINGS: No lines and tubes are seen. Old healed rib fractures are seen on the right. The cardiomediastinal silhouette is normal. Lungs are underinflated but clear. No evidence of pleural effusion or pneumothorax. IMPRESSION: No acute chest disease. ACT 112: Negative or not required by law. Electronically signed by: Ranjan Darling M.D. 03/02/2022 2:49 PM Medications Administered Medication List Discontinued Medications Chlordiazepoxide HCl (Chlordiazepoxide Hcl 25 Mg Cap) 50 mg PO NOW ONE Stop: 03/02/22 14:30 Last Admin: 03/02/22 14:57 Dose: 50 mg Documented by: [id number] Multivitamins 10 ml/ Thiamine HCl 100 mg/ Folic Acid 1 mg/Sodium Chloride 1,011.2 mls @ 1,011.2 mls/hr IV .Q1H ONE Stop: 03/02/22 15:28 Last Infusion: 03/02/22 16:13 Dose: 0 mls/hr Documented by: [id number] Admin: 03/02/22 14:57 Dose: 1,011.2 mls/hr Documented by: [id number] Sodium Chloride (Nss) 500 mls @ 999 mls/hr IV .Q31M ARABELLA Stop: 03/02/22 15:00 Last Infusion: 03/02/22 15:43 Dose: 0 mls/hr Documented by: [id number] Admin: 03/02/22 14:57 Dose: 999 mls/hr Documented by: [id number] Ondansetron HCl (Ondansetron Inj 2 Mg/Ml 2 Ml Vial) 4 mg IV NOW STA Stop: 03/02/22 14:30 Last Admin: 03/02/22 14:57 Dose: 4 mg Documented by: [id number] ECG Rate (beats per minute): 69 Rhythm: normal sinus COVID-19 Results Results COVID-19 Adm Lab Results: RBC 4.95 M/uL (4.7-6.1) 03/02/22 WBC 6.37 K/uL (4.8-10.8) 03/02/22 Hgb 16.7 g/dL (14.0-18.0) 03/02/22 Hct 45.5 % (42-52) 03/02/22 Plt Count 175 K/uL (130-400) 03/02/22 Neutrophils (%) (Auto) 46.9 % 03/02/22 Lymphocytes (%) (Auto) 40.8 % 03/02/22 Monocytes # (Auto) 0.67 K/uL (0.11-0.59) H 03/02/22 Eosinophils # (Auto) 0.07 K/uL (0-0.5) 03/02/22 Immature Granulocyte % (Auto) 0.2 % 03/02/22 Neutrophils # (Auto) 2.99 K/uL (1.4-6.5) 03/02/22 Lymphocytes # (Auto) 2.60 K/uL (1.2-3.4) 03/02/22 Monocytes # (Auto) 0.67 K/uL (0.11-0.59) H 03/02/22 Eosinophils # (Auto) 0.07 K/uL (0-0.5) 03/02/22 Basophils # (Auto) 0.03 K/uL (0-0.2) 03/02/22 Immature Granulocyte # (Auto) 0.01 K/uL (0.00-0.02) 03/02/22 Na 126 mmol/L (136-145) L 03/02/22 K 3.5 mmol/L (3.5-5.1) 03/02/22 Cl 92 mmol/L (98-107) L 03/02/22 CO2 20 mmol/L (21-32) L 03/02/22 Anion Gap 14 (3-11) H 03/02/22 BUN 13 mg/dl (6-23) 03/02/22 Creatinine 1.14 mg/dl (0.6-1.4) 03/02/22 BUN/Creatinine Ratio 11.4 (10-20) 03/02/22 Glucose Level 103 mg/dl (70-99(Fasting)) H 03/02/22 Ca 9.0 mg/dl (8.5-10.1) 03/02/22 Total Bilirubin 1.1 mg/dl (0.2-1.0) H 03/02/22 AST/SGOT 51 U/L (13-39) H 03/02/22 ALT/SGPT 55 U/L (7-52) H 03/02/22 Alkaline Phosphatase 72 U/L (34-104) 03/02/22 Total Protein 7.7 gm/dl (6.0-8.3) 03/02/22 Albumin 4.7 gm/dl (3.4-5.0) 03/02/22 Globulin 3.0 gm/dl (2.5-4.0) 03/02/22 Albumin/Globulin Ratio 1.6 (0.9-2) 03/02/22 SARS-CoV-2, RNA, NAAT NEGATIVE (NEGATIVE) 03/02/22 Chest X-Ray 03/02/22 Code Status & VTE Plan Code Status FULL CODE VTE Prophylaxis Plan VTE Prophylaxis will be ordered: No Supervising Physician Co-Signing Physician Notes Attending addendum: The patient was seen and examined in emergency room He came to the hospital for help his alcohol abuse and depression Has been drinking heavily until this morning Feels unwell and has had some nausea and vomiting at home Denies any other significant symptoms On examination Anxious without any acute distress Hemodynamically stable Chest occasional crackles at the bases HeartS1-S2, regular Abdomendistended, mildly tender with guarding all over, bowel sound present Extremitiesnegative CNSalert, awake and oriented x3. No tremors with outstretched hands and no focal neurological deficit Admission labs, EKG and imaging studies reviewed Noted to have hyponatremia and mildly elevated LFTs secondary to alcohol abuse We will watch for withdrawal symptoms with alcohol withdrawal protocol in place manager clinical applications for possible inpatient rehab as he is agreeable to Agree with assessment and plan as outlined above by RITESH Em Dr (1) Alcohol dependence Complication of substance-induced condition: with unspecified complication Substance use status: with intoxication Qualified Code(s): F10.229 - Alcohol dependence with intoxication, unspecified (2) Depression Depression Type: unspecified Qualified Code(s): F32.9 - Major depressive disorder, single episode, unspecified
[2022-03-02] MEDS ORDERED: SODIUM CHLORIDE 0.9% 1000ML 1,000 ML IV SCH (17:47)
[2022-03-02] MEDS ORDERED: POLYETHYLENE (MIRALAX) 17 GM PACK PO PRN (19:58)
[2022-03-02] MEDS ORDERED: LORazepam 2 MG/1 ML VIAL IV PRN ×2 (19:58)
[2022-03-02] MEDS ORDERED: ATIVAN IV ALCOHOL WITHDRAWL IV PRN (19:58)
[2022-03-02] MEDS ORDERED: ACETAMINOPHEN 325 MG TAB PO PRN (19:58)
[2022-03-02] MEDS ORDERED: ALUMINUM/MAGNESIUM SUSP 30 ML UDC PO PRN (19:58)
[2022-03-02] MEDS ORDERED: MAGNESIUM HYDROXIDE SUSP 30 ML UDC PO PRN (19:58)
[2022-03-02] MEDS ORDERED: GABAPENTIN 1200MG ALCOHOL WITHDRAWAL LOAD PO STA (19:58)
[2022-03-02 20:11] LABS: Amphetamines+Metham, Urine Neg (Neg); Barbiturates, Urine Neg (Neg); Benzodiazepine, Urine Neg (Neg); Cocaine, Urine Neg (Neg); MDMA (Ecstacy), Urine Neg (Neg); Methadone, Urine Neg (Neg); Opiate, Urine Neg (Neg); Phencyclidine, Urine Neg (Neg)
[2022-03-02] MEDS ORDERED: GABAPENTIN 600 MG TAB PO ONE (20:26)
[2022-03-02] MEDS: cloNIDine HCL 0.1 MG TAB PO SCH (21:22)
[2022-03-02] MEDS: THIAMINE HCL 100 MG TAB PO SCH (21:22)
[2022-03-02] MEDS: FOLIC ACID 1 MG TAB PO SCH (21:22)
[2022-03-02] MEDS: LORazepam 2 MG/1 ML VIAL IV PRN (22:56)
[2022-03-02] MEDS: ONDANSETRON INJ 2 MG/ML 2 ML VIAL IV PRN (22:57)
[2022-03-02 23:26] LABS: BUN Creatinine Ratio 11.1 (10-20); Calcium 8.3 mg/dl (8.5-10.1); Creatinine Clr Calc Pharmacy 82.6 ml/min; Est GFR (African American) 85.4 ml/min; Est GFR (Non-African American) 73.7 ml/min; Potassium 3.7 mmol/L (3.5-5.1)
[2022-03-03] MEDS: GABAPENTIN 600 MG TAB PO SCH ×3 (05:06→21:53)
[2022-03-03 06:03] LABS: Basophils # (auto) 0.01 K/uL (0-0.2); Basophils % (auto) 0.2 %; Eosinophils % (auto) 2.2 %; Hematocrit (blood only) 44.1 % (42-52); Hemoglobin 15.5 g/dL (14.0-18.0); Immature Granulocytes # (auto) 0.01 K/uL (0.00-0.02); Immature Granulocytes % (auto) 0.2 %; Lymphocytes # (auto) 1.53 K/uL (1.2-3.4); Mean Corpuscular Hgb Conc 35.1 g/dL (32-36); Mean Corpuscular Volume 93.8 fL (80-100); Neutrophils # (auto) 2.38 K/uL (1.4-6.5); Neutrophils % (auto) 51.4 %; Platelet Count 157 K/uL (130-400); RDW Coefficient of Variation 12.6 % (11.5-14.5); RDW Standard Deviation 43.1 fL (36.4-46.3); White Blood Count 4.63 K/uL (4.8-10.8)
[2022-03-03 06:33] LABS: Albumin Globulin Ratio 1.5 (0.9-2); Albumin Level 4.2 gm/dl (3.4-5.0); BUN Creatinine Ratio 10.4 (10-20); Bilirubin,Total 1.7 mg/dl (0.2-1.0); Calcium 8.6 mg/dl (8.5-10.1); Creatinine Clr Calc Pharmacy 92.9 ml/min; Est GFR (African American) 98.5 ml/min; Globulin 2.8 gm/dl (2.5-4.0); Potassium 3.8 mmol/L (3.5-5.1)
[2022-03-03] MEDS: LORazepam 2 MG/1 ML VIAL IV PRN ×2 (09:35→20:10)
[2022-03-03] MEDS: ONDANSETRON INJ 2 MG/ML 2 ML VIAL IV PRN ×2 (09:36→20:09)
[2022-03-03] MEDS: VITAMIN B COMPLEX TAB PO SCH (09:37)
[2022-03-03] MEDS: lisinopril 20 MG TAB PO SCH (09:37)
[2022-03-03] MEDS: THIAMINE HCL 100 MG TAB PO SCH (09:37)
[2022-03-03] MEDS: CHOLECALCIFEROL 400 UNITS 10 MCG TAB PO SCH (09:38)
[2022-03-03] MEDS: FOLIC ACID 1 MG TAB PO SCH (09:38)
[2022-03-03] MEDS: PANTOprazole 40 MG TAB PO SCH (09:38)
[2022-03-03] MEDS: cloNIDine HCL 0.1 MG TAB PO SCH ×2 (09:38→20:09)
--- NOTE | 2022-03-03 12:17 | Psychiatric Consultation ---
Date of Consultation March 03, 2022 Impression / Recommendations Impression 61 yo male with depression related to severe alcohol dependence with recurrent hospitalizations. (1) Alcohol dependence: Complication of substance-induced condition: with unspecified complication Substance use status: with intoxication Qualified Code(s): F10.229 - Alcohol dependence with intoxication, unspecified (2) Depressed: Depression Type: unspecified Qualified Code(s): F32.A - Depressio n, unspecified wholeheartedly agree with inpatient rehab there is no indication for acute inpatient psychiatric admission and he is psychiatrically stable for rehab. Psych History Identifying Data 61 yo male, well known to me from multiple interactions on consult service. Hx of depression but primary ETOH dependence. Chief Complaint "I'm going to do it this time", referring to rehab. History of Present Illness Patient admit for management of alcohol withdrawal, consistently using a case of beer per day. Last seen by me last month when there was a 302 warrant when he made suicidal statement while intoxicated. This stay he continued to endorse some depressive symptoms with PHQ-9 14, 0 on #9. He scored highest for anhedonia and fatigue. He is clear he doesn't want to restart an antidepressant as he is already accepted/has funding to go to rehab at [place]. He will be starting medication for essential tremor. Reviewed that hx of hyponatremia with ETOH benders generally limited his ability to restart before. TYLER rousseau remains a support. Allergies Allergy/AdvReac Type Severity Reaction Status Date / Time No Known Allergies Allergy Verified 03/02/22 17:21 Home Medications Medication Instructions Recorded Confirmed Type omeprazole 20 mg tablet,delayed 40 mg PO DAILY 03/16/20 03/02/22 History release clonidine HCl 0.1 mg tablet 0.1 mg PO BID #0 tab 03/19/20 03/02/22 Rx cholecalciferol (vitamin D3) 10 20 mcg PO DAILY 06/02/20 03/02/22 History mcg (400 unit) chewable tablet vitamin B complex 1 tab PO DAILY 12/08/20 03/02/22 History folic acid 1 mg tablet 1 mg PO DAILY #30 tab 01/03/22 03/02/22 Rx thiamine HCl (vitamin B1) 100 mg 100 mg PO QAM #30 tab 01/03/22 03/02/22 Rx tablet lisinopril 10 mg tablet 20 mg PO DAILY 03/02/22 03/02/22 History Personal History Beliefs That Will Affect Care: None Patient History Medical History Alcohol dependence Alcohol withdrawal Anxiety Depression Dyslipidemia GERD (gastroesophageal reflux disease) Hypertension Mood disorder Smoker Suicidal ideation Suicidal thoughts Surgical History No history of previous surgery Family History Father , age 70 from [place] Coronary heart disease Social History Smoking Status: Current every day smoker Tobacco Type: Cigarettes Cigarettes Per Day: 0.5 pack daily; Second Hand Exposure: No; Hx Alcohol Use: Yes Alcohol type: beer Alcohol Intake Frequency Comment: case of beer a day Hx Substance Use: No Preferred Language: Malay Communication Ability: Effective Reinsurance Clerk Required: No Beliefs That Will Affect Care: None marital status: Current Living Situation: Alone Current Living Situation Comment: pt states lives in large farmhouse where two brothers unrelated to him live Feels Safe at Home: Yes Safety Concerns: Feels Safe At This Time Assistive Devices: Glasses Physical Exam Psychiatric: Orientation: alert and oriented x 3 Apperance: appropriately dressed and appropriately groomed Eye Contact: good eye contact Motor Behavior: no abnormal motor movements Speech: normal rate/rhythm/volume of speech Affect: euthymic affect Mood: no depressed mood Thought Process: goal directed thought process Thought Content: reality based without delusions Suicidal Thoughts: denies suicidal thoughts Homicidal Thoughts: denies homicidal thoughts Hallucinations: no auditory hallucinations and no visual hallucinations Cognition: attention grossly intact and language grossly intact Estimated Intelligence: consistent with education level Insight: + limited insight Judgement: + limited judgement Vital Signs (Past 24 Hours): Last Vital Signs Temp 36.8 C 03/03/22 11:02 Pulse 97 H 03/03/22 11:34 Resp 20 03/03/22 11:02 BP 164/96 H 03/03/22 11:34 Pulse Ox 94 03/03/22 11:02 Review of Systems All systems reviewed & are unremarkable except as noted in HPI & below (tremor, hypertension) Results & Data ([facility]) Medications Administered Clonidine HCl (Clonidine Hcl 0.1 Mg Tab) 0.1 mg PO BID [facility] Stop: 04/01/22 20:59 Last Admin: 03/03/22 09:38 Dose: 0.1 mg Documented by: [id number] Admin: 03/02/22 21:22 Dose: 0.1 mg Documented by: [id number] Folic Acid (Folic Acid 1 Mg Tab) 1 mg PO QAM [facility] Stop: 04/01/22 19:57 Last Admin: 03/03/22 09:38 Dose: 1 mg Documented by: [id number] Admin: 03/02/22 21:22 Dose: 1 mg Documented by: [id number] Sodium Chloride (Nss 1000ml) 1,000 mls @ 125 mls/hr IV .Q8H [facility] Stop: 04/01/22 17:46 Last Infusion: 03/03/22 00:39 Dose: 0 mls/hr Documented by: [id number] Admin: 03/02/22 17:51 Dose: 125 mls/hr Documented by: [id number] Lisinopril (Lisinopril 20 Mg Tab) 20 mg PO DAILY [facility] Stop: 04/02/22 08:59 Last Admin: 03/03/22 09:37 Dose: 20 mg Documented by: [id number] Lorazepam (Lorazepam 2 Mg/1 Ml Vial) 1 mg IV UD PRN; Protocol PRN Reason: EtOH Withdrawl AWSS Score 6,7 Stop: 04/01/22 19:57 Last Admin: 03/03/22 09:35 Dose: 1 mg Documented by: [id number] Admin: 03/02/22 22:56 Dose: 1 mg Documented by: [id number] Ondansetron HCl (Ondansetron Inj 2 Mg/Ml 2 Ml Vial) 4 mg IV Q6H PRN PRN Reason: Nausea Stop: 04/01/22 19:57 Last Admin: 03/03/22 09:36 Dose: 4 mg Documented by: [id number] Admin: 03/02/22 22:57 Dose: 4 mg Documented by: [id number] Pantoprazole Sodium (Pantoprazole 40 Mg Tab) 40 mg PO DAILY [facility] Stop: 04/02/22 08:59 Last Admin: 03/03/22 09:38 Dose: 40 mg Documented by: [id number] Thiamine HCl (Thiamine Hcl 100 Mg Tab) 100 mg PO QAM [facility] Stop: 04/01/22 19:57 Last Admin: 03/03/22 09:37 Dose: 100 mg Documented by: [id number] Admin: 03/02/22 21:22 Dose: 100 mg Documented by: [id number] Vitamin B Complex (Vitamin B Complex Tab) 1 tab PO DAILY AR[facility]A Stop: 04/02/22 08:59 Last Admin: 03/03/22 09:37 Dose: 1 tab Documented by: [id number] Vitamin D (Cholecalciferol 400 Units 10 Mcg Tab) 400 units PO DAILY ARABELLA Stop: 04/02/22 08:59 Last Admin: 03/03/22 09:38 Dose: 400 units Documented by: [id number] Coding Level of Care Code 28771 U Intl Hosp Care Lvl 2 Diagnoses Alcohol dependence F10.229 Complication of substance-induced condition: with unspecified complication Substance use status: with intoxication Depressed F32.A Depression Type: unspecified
--- NOTE | 2022-03-03 17:22 | Hospitalist Progress Note ---
Date of Service March 03, 2022 Assessment & Plan (1) Alcohol dependence: (2) Depression: (3) Tobacco use: (4) Hyponatremia: (5) Metabolic acidosis, increased anion gap: Plan: This is a 61-year-old male who has significant past medical history of HTN, HLD, alcohol abuse and GERD who presented to ED last evening due to patient wanting help for depression and abusing alcohol. 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 Intention tremor Has a strong family history of intention tremor We will try to put some medications for that on discharge Depression ongoing, denies suicidal or homicidal ideation Consult psychiatry to discuss initiation therapy also discussed establishing out pt counseling through [facility] Appreciate psychiatric input and recommendation Hyponatremia obtain urine studies likely 2/2 to alcohol use continue IVF, follow BMP, previously had been 133-134 in past currently 126 repeat bmp this evening-sodium level has been normalized Hypertension Bp stable pt did not start amlodipine like prescribed at last D/C he is taking lisinopril and clonidine will continue and monitor Hyperlipidemia statin currently on hold from previous admission due to elevated LFTS Mild transaminitis Statin on hold Likely in setting of alcohol abuse US from 12/29 shows evidence of hepatomegally and fatty change. Expected Tobacco abuse Encourage smoking cessation Patient currently declines nicotine patch DVT prophylaxis:Ambulate Dispo: PCU, CM consulted for inpt rehab, also pt should establish with outpt counseling in regards to depression in available through [facility] Full code PCP: [facility] Admission and Anticipated Discharge Date Admission Date: March 02, 2022 Subjective 03/03/2022 The patient was seen and examined in medical telemetry unit He has a strong family history of essential tremor She denies any palpitation and does not have any resting tremor The outstretched hand did not show any significant tremor but he does have intention tremor Review of Systems Review of Systems: All systems reviewed and are unremarkable except as noted below Physical Exam Physical Exam: Lying in bed very anxious Constitutional: well developed, well nourished, + ill appearing and + obese Eyes: PERRL, conjunctivae normal, anicteric sclerae ENMT: external ear and nose normal, oropharynx normal Neck: trachea midline, no thyromegaly Respiratory: no respiratory distress Auscultation: lungs clear to auscultation bilaterally Cardiovascular: Rate/Rhythm: regular rate and regular rhythm; not tachycardic Heart Sounds: normal S1 and normal S2; no murmur Extremities: no edema Gastrointestinal (Abdomen): Inspection/Auscultation: normal bowel sounds; abdomen not distended Percussion/Palpation: abdomen soft; abdomen nontender Musculoskeletal: No acute arthritis in any joint Neurologic: Alert, awake and oriented x3. Has significant intention tremor. Psychiatric: A+Ox3, euthymic affect Results & Data Results & Data ([facility]) Vital Signs (Past 12 Hours) Vital Signs Temp Pulse Pulse Resp BP Pulse Ox 03/03/22 15:18 36.9 C 94 H 20 139/83 94 03/03/22 15:02 108 H 03/03/22 11:34 97 H 164/96 H 03/03/22 11:02 36.8 C 95 H 20 173/100 H 94 03/03/22 07:36 36.9 C 81 20 163/93 H 93 03/03/22 07:32 78 Laboratory Results Short CBC 03/03/22 Range/Units 05:21 WBC 4.63 L (4.8-10.8) K/uL Hgb 15.5 (14.0-18.0) g/dL Hct 44.1 (42-52) % Plt Count 157 (130-400) K/uL BMP 03/02/22 03/03/22 22:31 05:21 Sodium 134 L 135 L Potassium 3.7 3.8 Chloride 103 104 Carbon Dioxide 21 24 BUN 12 10 Creatinine 1.08 0.96 Glucose 84 92 Calcium 8.3 L 8.6 Liver Function 03/03/22 Range/Units 05:21 Total Bilirubin 1.7 H D (0.2-1.0) mg/dl AST 50 H (13-39) U/L ALT 49 (7-52) U/L Alkaline Phosphatase 69 (34-104) U/L Albumin 4.2 (3.4-5.0) gm/dl Medications Administered Current Inpatient Medications Acetaminophen (Acetaminophen 325 Mg Tab) 650 mg PO Q4H PRN PRN Reason: Pain or Fever Stop: 04/01/22 19:57 Al Hydrox/Mg Hydrox/Simethicone (Aluminum/Magnesium Susp 30 Ml Udc) 15 ml PO Q4H PRN PRN Reason: Dyspepsia Stop: 04/01/22 19:57 Clonidine HCl (Clonidine Hcl 0.1 Mg Tab) 0.1 mg PO BID COUNTS INCLUDE 234 BEDS AT THE [facility] Stop: 04/01/22 20:59 Last Admin: 03/03/22 09:38 Dose: 0.1 mg Documented by: Folic Acid (Folic Acid 1 Mg Tab) 1 mg PO QAM COUNTS INCLUDE 234 BEDS AT THE [facility] Stop: 04/01/22 19:57 Last Admin: 03/03/22 09:38 Dose: 1 mg Documented by: Gabapentin (Gabapentin 600 Mg Tab) 600 mg PO Q8H COUNTS INCLUDE 234 BEDS AT THE [facility] Stop: 03/04/22 14:01 Gabapentin (Gabapentin 600 Mg Tab) 600 mg PO Q12H COUNTS INCLUDE 234 BEDS AT THE [facility] Stop: 03/05/22 12:01 Gabapentin (Gabapentin 600 Mg Tab) 600 mg PO Q24H COUNTS INCLUDE 234 BEDS AT THE [facility] Stop: 03/06/22 12:01 Sodium Chloride (Nss 1000ml) 1,000 mls @ 125 mls/hr IV .Q8H COUNTS INCLUDE 234 BEDS AT THE [facility] Stop: 04/01/22 17:46 Last Infusion: 03/03/22 00:39 Dose: Infused Documented by: Lisinopril (Lisinopril 20 Mg Tab) 20 mg PO DAILY COUNTS INCLUDE 234 BEDS AT THE [facility] Stop: 04/02/22 08:59 Last Admin: 03/03/22 09:37 Dose: 20 mg Documented by: Lorazepam (Lorazepam 2 Mg/1 Ml Vial) 1 mg IV UD PRN; Protocol PRN Reason: EtOH Withdrawl AWSS Score 6,7 Stop: 04/01/22 19:57 Last Admin: 03/03/22 09:35 Dose: 1 mg Documented by: Lorazepam (Lorazepam 2 Mg/1 Ml Vial) 2 mg IV UD PRN; Protocol PRN Reason: EtOH Withdrawl AWSS Score 8,9 Stop: 04/01/22 19:57 Lorazepam (Lorazepam 2 Mg/1 Ml Vial) 3 mg IV ONCE PRN; Protocol PRN Reason: EtOH Withdrawl AWSS Score >=10 Stop: 04/01/22 19:57 Magnesium Hydroxide (Magnesium Hydroxide Susp 30 Ml Udc) 30 ml PO Q12H PRN PRN Reason: Constipation Stop: 04/01/22 19:57 Ondansetron HCl (Ondansetron Inj 2 Mg/Ml 2 Ml Vial) 4 mg IV Q6H PRN PRN Reason: Nausea Stop: 04/01/22 19:57 Last Admin: 03/03/22 09:36 Dose: 4 mg Documented by: Pantoprazole Sodium (Pantoprazole 40 Mg Tab) 40 mg PO DAILY [facility] Stop: 04/02/22 08:59 Last Admin: 03/03/22 09:38 Dose: 40 mg Documented by: Polyethylene Glycol (Polyethylene (Miralax) 17 Gm Pack) 17 gm PO DAILY PRN PRN Reason: Constipation Stop: 04/01/22 19:57 Thiamine HCl (Thiamine Hcl 100 Mg Tab) 100 mg PO QAM [facility] Stop: 04/01/22 19:57 Last Admin: 03/03/22 09:37 Dose: 100 mg Documented by: Vitamin B Complex (Vitamin B Complex Tab) 1 tab PO DAILY [facility] Stop: 04/02/22 08:59 Last Admin: 03/03/22 09:37 Dose: 1 tab Documented by: Vitamin D (Cholecalciferol 400 Units 10 Mcg Tab) 400 units PO DAILY [facility] Stop: 04/02/22 08:59 Last Admin: 03/03/22 09:38 Dose: 400 units Documented by: (1) Alcohol dependence Complication of substance-induced condition: with unspecified complication Substance use status: with intoxication Qualified Code(s): F10.229 - Alcohol dependence with intoxication, unspecified (2) Depression Depression Type: unspecified Qualified Code(s): F32.9 - Major depressive disorder, single episode, unspecified
[2022-03-04] MEDS: GABAPENTIN 600 MG TAB PO SCH ×3 (06:13→23:38)
[2022-03-04] MEDS: THIAMINE HCL 100 MG TAB PO SCH (09:10)
[2022-03-04] MEDS: FOLIC ACID 1 MG TAB PO SCH (09:10)
[2022-03-04] MEDS: cloNIDine HCL 0.1 MG TAB PO SCH ×2 (09:10→20:34)
[2022-03-04] MEDS: CHOLECALCIFEROL 400 UNITS 10 MCG TAB PO SCH (09:10)
[2022-03-04] MEDS: PANTOprazole 40 MG TAB PO SCH (09:11)
[2022-03-04] MEDS: lisinopril 20 MG TAB PO SCH (09:11)
[2022-03-04] MEDS: VITAMIN B COMPLEX TAB PO SCH (09:11)
[2022-03-04] MEDS: ONDANSETRON INJ 2 MG/ML 2 ML VIAL IV PRN (09:19)
[2022-03-04 09:33] LABS: Basophils # (auto) 0.03 K/uL (0-0.2); Basophils % (auto) 0.6 %; Eosinophils % (auto) 1.9 %; Hematocrit (blood only) 45.7 % (42-52); Hemoglobin 16.2 g/dL (14.0-18.0); Immature Granulocytes # (auto) 0.01 K/uL (0.00-0.02); Immature Granulocytes % (auto) 0.2 %; Lymphocytes # (auto) 1.47 K/uL (1.2-3.4); Lymphocytes % (auto) 27.3 %; Mean Corpuscular Hemoglobin 33.1 pg (25-34); Mean Corpuscular Hgb Conc 35.4 g/dL (32-36); Mean Corpuscular Volume 93.3 fL (80-100); Mean Platelet Volume 10.6 fL (7.4-10.4); Monocytes # (auto) 0.64 K/uL (0.11-0.59); Monocytes % (auto) 11.9 %; Neutrophils # (auto) 3.13 K/uL (1.4-6.5); Neutrophils % (auto) 58.1 %; Platelet Count 163 K/uL (130-400); RDW Coefficient of Variation 12.4 % (11.5-14.5); RDW Standard Deviation 42.2 fL (36.4-46.3); White Blood Count 5.38 K/uL (4.8-10.8)
[2022-03-04 09:39] LABS: Albumin Globulin Ratio 1.5 (0.9-2); Albumin Level 4.8 gm/dl (3.4-5.0); BUN Creatinine Ratio 8.9 (10-20); Bilirubin,Total 1.6 mg/dl (0.2-1.0); Calcium 9.6 mg/dl (8.5-10.1); Creatinine Clr Calc Pharmacy 112.1 ml/min; Est GFR (African American) 112.3 ml/min; Est GFR (Non-African American) 96.9 ml/min; Globulin 3.3 gm/dl (2.5-4.0); Magnesium 1.9 mg/dl (1.7-2.4); Phosphorus 2.4 mg/dl (2.5-4.9); Potassium 3.5 mmol/L (3.5-5.1); Total Protein 8.1 gm/dl (6.0-8.3)
[2022-03-04] MEDS: LORazepam 2 MG/1 ML VIAL IV PRN ×2 (14:14→23:47)
--- NOTE | 2022-03-04 16:58 | Hospitalist Progress Note ---
Date of Service March 04, 2022 Assessment & Plan (1) Alcohol dependence: (2) Depression: (3) Tobacco use: (4) Hyponatremia: (5) Metabolic acidosis, increased anion gap: Plan: This is a 61-year-old male who has significant past medical history of HTN, HLD, alcohol abuse and GERD who presented to ED last evening due to patient wanting help for depression and abusing alcohol. 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 PT and OT has been ordered Not yet ready to be discharged as he is having early symptoms of withdrawal Intention tremor Has a strong family history of intention tremor We will try to put some medications for that on discharge Depression ongoing, denies suicidal or homicidal ideation Consult psychiatry to discuss initiation therapy also discussed establishing out pt counseling through [facility] Appreciate psychiatric input and recommendation Hyponatremia obtain urine studies likely 2/2 to alcohol use continue IVF, follow BMP, previously had been 133-134 in past currently 126 repeat bmp this evening-sodium level has been normalized Hypertension Bp stable pt did not start amlodipine like prescribed at last D/C he is taking lisinopril and clonidine will continue and monitor Hyperlipidemia statin currently on hold from previous admission due to elevated LFTS Mild transaminitis Statin on hold Likely in setting of alcohol abuse US from 12/29 shows evidence of hepatomegally and fatty change. Expected Tobacco abuse Encourage smoking cessation Patient currently declines nicotine patch DVT prophylaxis:Ambulate Dispo: PCU, CM consulted for inpt rehab, also pt should establish with outpt counseling in regards to depression in available through [facility] Full code PCP: [facility] Admission and Anticipated Discharge Date Admission Date: March 02, 2022 Subjective 03/03/2022 The patient was seen and examined in medical telemetry unit He has a strong family history of essential tremor She denies any palpitation and does not have any resting tremor The outstretched hand did not show any significant tremor but he does have intention tremor 03/04/2022 The patient was seen and examined in medical telemetry unit He has been anxious and feels that he is not yet ready to be discharged Is no significant tremor with outstretched hands but he feels palpitation at times Review of Systems Review of Systems: All systems reviewed and are unremarkable except as noted below Physical Exam Physical Exam: Lying in bed very anxious Constitutional: well developed, well nourished, + ill appearing and + obese Eyes: PERRL, conjunctivae normal, anicteric sclerae ENMT: external ear and nose normal, oropharynx normal Neck: trachea midline, no thyromegaly Respiratory: no respiratory distress Auscultation: lungs clear to ausc ultation bilaterally Cardiovascular: Rate/Rhythm: regular rate and regular rhythm; not tachycardic Heart Sounds: normal S1 and normal S2; no murmur Extremities: no edema Gastrointestinal (Abdomen): Inspection/Auscultation: normal bowel sounds; abdomen not distended Percussion/Palpation: abdomen soft; abdomen nontender Psychiatric: A+Ox3, euthymic affect Results & Data Results & Data ([facility]) Vital Signs (Past 12 Hours) Vital Signs Temp Pulse Pulse Resp BP Pulse Ox 03/04/22 13:57 36.8 C 71 20 163/75 H 94 03/04/22 11:49 37.1 C 87 20 177/88 H 93 03/04/22 07:34 73 03/04/22 06:39 36.5 C 76 18 168/95 H 96 Laboratory Results Short CBC 03/04/22 Range/Units 08:20 WBC 5.38 (4.8-10.8) K/uL Hgb 16.2 (14.0-18.0) g/dL Hct 45.7 (42-52) % Plt Count 163 (130-400) K/uL BMP 03/04/22 08:20 Sodium 134 L Potassium 3.5 Chloride 101 Carbon Dioxide 23 BUN 7 Creatinine 0.79 Glucose 140 H Calcium 9.6 Liver Function 03/04/22 Range/Units 08:20 Total Bilirubin 1.6 H (0.2-1.0) mg/dl AST 71 H (13-39) U/L ALT 61 H (7-52) U/L Alkaline Phosphatase 87 (34-104) U/L Albumin 4.8 (3.4-5.0) gm/dl Medications Administered Current Inpatient Medications Acetaminophen (Acetaminophen 325 Mg Tab) 650 mg PO Q4H PRN PRN Reason: Pain or Fever Stop: 04/01/22 19:57 Al Hydrox/Mg Hydrox/Simethicone (Aluminum/Magnesium Susp 30 Ml Udc) 15 ml PO Q4H PRN PRN Reason: Dyspepsia Stop: 04/01/22 19:57 Clonidine HCl (Clonidine Hcl 0.1 Mg Tab) 0.1 mg PO BID [facility] Stop: 04/01/22 20:59 Last Admin: 03/04/22 09:10 Dose: 0.1 mg Documented by: Folic Acid (Folic Acid 1 Mg Tab) 1 mg PO QAM [facility] Stop: 04/01/22 19:57 Last Admin: 03/04/22 09:10 Dose: 1 mg Documented by: Gabapentin (Gabapentin 600 Mg Tab) 600 mg PO Q12H [facility] Stop: 03/05/22 12:01 Gabapentin (Gabapentin 600 Mg Tab) 600 mg PO Q24H [facility] Stop: 03/06/22 12:01 Sodium Chloride (Nss 1000ml) 1,000 mls @ 125 mls/hr IV .Q8H [facility] Stop: 04/01/22 17:46 Last Infusion: 03/03/22 00:39 Dose: Infused Documented by: Lisinopril (Lisinopril 20 Mg Tab) 20 mg PO DAILY [facility] Stop: 04/02/22 08:59 Last Admin: 03/04/22 09:11 Dose: 20 mg Documented by: Lorazepam (Lorazepam 2 Mg/1 Ml Vial) 1 mg IV UD PRN; Protocol PRN Reason: EtOH Withdrawl AWSS Score 6,7 Stop: 04/01/22 19:57 Last Admin: 03/04/22 14:14 Dose: 1 mg Documented by: Lorazepam (Lorazepam 2 Mg/1 Ml Vial) 2 mg IV UD PRN; Protocol PRN Reason: EtOH Withdrawl AWSS Score 8,9 Stop: 04/01/22 19:57 Lorazepam (Lorazepam 2 Mg/1 Ml Vial) 3 mg IV ONCE PRN; Protocol PRN Reason: EtOH Withdrawl AWSS Score >=10 Stop: 04/01/22 19:57 Magnesium Hydroxide (Magnesium Hydroxide Susp 30 Ml Udc) 30 ml PO Q12H PRN PRN Reason: Constipation Stop: 04/01/22 19:57 Ondansetron HCl (Ondansetron Inj 2 Mg/Ml 2 Ml Vial) 4 mg IV Q6H PRN PRN Reason: Nausea Stop: 04/01/22 19:57 Last Admin: 03/04/22 09:19 Dose: 4 mg Documented by: Pantoprazole Sodium (Pantoprazole 40 Mg Tab) 40 mg PO DAILY [facility] Stop: 04/02/22 08:59 Last Admin: 03/04/22 09:11 Dose: 40 mg Documented by: Polyethylene Glycol (Polyethylene (Miralax) 17 Gm Pack) 17 gm PO DAILY PRN PRN Reason: Constipation Stop: 04/01/22 19:57 Thiamine HCl (Thiamine Hcl 100 Mg Tab) 100 mg PO QAM [facility] Stop: 04/01/22 19:57 Last Admin: 03/04/22 09:10 Dose: 100 mg Documented by: Vitamin B Complex (Vitamin B Complex Tab) 1 tab PO DAILY [facility] Stop: 04/02/22 08:59 Last Admin: 03/04/22 09:11 Dose: 1 tab Documented by: Vitamin D (Cholecalciferol 400 Units 10 Mcg Tab) 400 units PO DAILY [facility] Stop: 04/02/22 08:59 Last Admin: 03/04/22 09:10 Dose: 400 units Documented by: (1) Alcohol dependence Complication of substance-induced condition: with unspecified complication Substance use status: with intoxication Qualified Code(s): F10.229 - Alcohol dependence with intoxication, unspecified (2) Depression Depression Type: unspecified Qualified Code(s): F32.9 - Major depressive disorder, single episode, unspecified
[2022-03-05] MEDS: FOLIC ACID 1 MG TAB PO SCH (09:15)
[2022-03-05] MEDS: lisinopril 20 MG TAB PO SCH (09:15)
[2022-03-05] MEDS: VITAMIN B COMPLEX TAB PO SCH (09:16)
[2022-03-05] MEDS: CHOLECALCIFEROL 400 UNITS 10 MCG TAB PO SCH (09:16)
[2022-03-05] MEDS: cloNIDine HCL 0.1 MG TAB PO SCH ×2 (09:16→20:54)
[2022-03-05] MEDS: THIAMINE HCL 100 MG TAB PO SCH (09:16)
[2022-03-05] MEDS: PANTOprazole 40 MG TAB PO SCH (09:16)
[2022-03-05] MEDS: GABAPENTIN 600 MG TAB PO SCH (12:00)
[2022-03-05] MEDS: LORazepam 2 MG/1 ML VIAL IV PRN (12:06)
--- NOTE | 2022-03-05 16:36 | Hospitalist Progress Note ---
Date of Service March 05, 2022 Assessment & Plan (1) Alcohol dependence: (2) Depression: (3) Tobacco use: (4) Hyponatremia: (5) Metabolic acidosis, increased anion gap: Plan: This is a 61-year-old male who has significant past medical history of HTN, HLD, alcohol abuse and GERD who presented to ED last evening due to patient wanting help for depression and abusing alcohol. 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 PT and OT has been ordered Not yet ready to be discharged as he is having early symptoms of withdrawal Will need a day or 2 more to 2 resolved withdrawal symptoms from alcohol Intention tremor Has a strong family history of intention tremor We will try to put some medications for that on discharge Depression ongoing, denies suicidal or homicidal ideation Consult psychiatry to discuss initiation therapy also discussed establishing out pt counseling through [facility] Appreciate psychiatric input and recommendation Hyponatremia obtain urine studies likely 2/2 to alcohol use continue IVF, follow BMP, previously had been 133-134 in past currently 126 repeat bmp this evening-sodium level has been normalized Hypertension Bp stable pt did not start amlodipine like prescribed at last D/C he is taking lisinopril and clonidine will continue and monitor Hyperlipidemia statin currently on hold from previous admission due to elevated LFTS Mild transaminitis Statin on hold Likely in setting of alcohol abuse US from 12/29 shows evidence of hepatomegally and fatty change. Expected Tobacco abuse Encourage smoking cessation Patient currently declines nicotine patch DVT prophylaxis:Ambulate Dispo: PCU, CM consulted for inpt rehab, also pt should establish with outpt counseling in regards to depression in available through [facility] Full code PCP: [facility] Admission and Anticipated Discharge Date Admission Date: March 02, 2022 Subjective 03/03/2022 The patient was seen and examined in medical telemetry unit He has a strong family history of essential tremor She denies any palpitation and does not have any resting tremor The outstretched hand did not show any significant tremor but he does have intention tremor 03/04/2022 The patient was seen and examined in medical telemetry unit He has been anxious and feels that he is not yet ready to be discharged Is no significant tremor with outstretched hands but he feels palpitation at times 03/05/2022 The patient was seen and examined in medical telemetry unit He remains anxious and has minimal symptoms of withdrawal from alcohol Not yet ready to be discharged Review of Systems Review of Systems: All systems reviewed and are unremarkable except as noted below Physical Exam Physical Exam: Lying in bed very anxious Constitutional: well developed, well nourished, + ill appearing and + obese Eyes: PERRL, conjunctivae normal, anicteric sclerae ENMT: external ear and nose normal, oropharynx normal Neck: trachea midline, no thyromegaly Respiratory: no respiratory distress Auscultation: lungs clear to auscultation bilaterally Cardiovascular: Rate/Rhythm: regular rate and regular rhythm; not tachycardic Heart Sounds: normal S1 and normal S2; no murmur Extremities: no edema Gastrointestinal (Abdomen): Inspection/Auscultation: normal bowel sounds; abdomen not distended Percussion/Palpation: abdomen soft; abdomen nontender Neurologic: Has minimal tremors involving the outstretched hands Psychiatric: A+Ox3, euthymic affect Results & Data Results & Data ([facility]) Vital Signs (Past 12 Hours) Vital Signs Temp Pulse Pulse Resp BP Pulse Ox 03/05/22 16:14 89 03/05/22 15:45 36.8 C 83 18 131/78 94 03/05/22 12:00 37.2 C 93 H 20 136/75 95 03/05/22 11:56 36.7 C 77 20 167/79 H 96 03/05/22 08:00 69 03/05/22 07:56 36.3 C L 83 18 130/90 97 Medications Administered Current Inpatient Medications Acetaminophen (Acetaminophen 325 Mg Tab) 650 mg PO Q4H PRN PRN Reason: Pain or Fever Stop: 04/01/22 19:57 Al Hydrox/Mg Hydrox/Simethicone (Aluminum/Magnesium Susp 30 Ml Udc) 15 ml PO Q4H PRN PRN Reason: Dyspepsia Stop: 04/01/22 19:57 Clonidine HCl (Clonidine Hcl 0.1 Mg Tab) 0.1 mg PO BID [facility] Stop: 04/01/22 20:59 Last Admin: 03/05/22 09:16 Dose: 0.1 mg Documented by: Folic Acid (Folic Acid 1 Mg Tab) 1 mg PO QAM [facility] Stop: 04/01/22 19:57 Last Admin: 03/05/22 09:15 Dose: 1 mg Documented by: Gabapentin (Gabapentin 600 Mg Tab) 600 mg PO Q24H [facility] Stop: 03/06/22 12:01 Sodium Chloride (Nss 1000ml) 1,000 mls @ 125 mls/hr IV .Q8H [facility] Stop: 04/01/22 17:46 Last Infusion: 03/03/22 00:39 Dose: Infused Documented by: Lisinopril (Lisinopril 20 Mg Tab) 20 mg PO DAILY [facility] Stop: 04/02/22 08:59 Last Admin: 03/05/22 09:15 Dose: 20 mg Documented by: Lorazepam (Lorazepam 2 Mg/1 Ml Vial) 1 mg IV UD PRN; Protocol PRN Reason: EtOH Withdrawl AWSS Score 6,7 Stop: 04/01/22 19:57 Last Admin: 03/05/22 12:06 Dose: 1 mg Documented by: Lorazepam (Lorazepam 2 Mg/1 Ml Vial) 2 mg IV UD PRN; Protocol PRN Reason: EtOH Withdrawl AWSS Score 8,9 Stop: 04/01/22 19:57 Lorazepam (Lorazepam 2 Mg/1 Ml Vial) 3 mg IV ONCE PRN; Protocol PRN Reason: EtOH Withdrawl AWSS Score >=10 Stop: 04/01/22 19:57 Magnesium Hydroxide (Magnesium Hydroxide Susp 30 Ml Udc) 30 ml PO Q12H PRN PRN Reason: Constipation Stop: 04/01/22 19:57 Ondansetron HCl (Ondansetron Inj 2 Mg/Ml 2 Ml Vial) 4 mg IV Q6H PRN PRN Reason: Nausea Stop: 04/01/22 19:57 Last Admin: 03/04/22 09:19 Dose: 4 mg Documented by: Pantoprazole Sodium (Pantoprazole 40 Mg Tab) 40 mg PO DAILY [facility] Stop: 04/02/22 08:59 Last Admin: 03/05/22 09:16 Dose: 40 mg Documented by: Polyethylene Glycol (Polyethylene (Miralax) 17 Gm Pack) 17 gm PO DAILY PRN PRN Reason: Constipation Stop: 04/01/22 19:57 Thiamine HCl (Thiamine Hcl 100 Mg Tab) 100 mg PO QAM [facility] Stop: 04/01/22 19:57 Last Admin: 03/05/22 09:16 Dose: 100 mg Documented by: Vitamin B Complex (Vitamin B Complex Tab) 1 tab PO DAILY [facility] Stop: 04/02/22 08:59 Last Admin: 03/05/22 09:16 Dose: 1 tab Documented by: Vitamin D (Cholecalciferol 400 Units 10 Mcg Tab) 400 units PO DAILY [facility] Stop: 04/02/22 08:59 Last Admin: 03/05/22 09:16 Dose: 400 units Documented by: (1) Alcohol dependence Complication of substance-induced condition: with unspecified complication Substance use status: with intoxication Qualified Code(s): F10.229 - Alcohol dependence with intoxication, unspecified (2) Depression Depression Type: unspecified Qualified Code(s): F32.9 - Major depressive disorder, single episode, unspecified
[2022-03-06] MEDS: ONDANSETRON INJ 2 MG/ML 2 ML VIAL IV PRN (04:08)
[2022-03-06] MEDS: LORazepam 2 MG/1 ML VIAL IV PRN (05:36)
[2022-03-06] MEDS: cloNIDine HCL 0.1 MG TAB PO SCH ×2 (08:50→22:28)
[2022-03-06] MEDS: THIAMINE HCL 100 MG TAB PO SCH (08:50)
[2022-03-06] MEDS: FOLIC ACID 1 MG TAB PO SCH (08:50)
[2022-03-06] MEDS: CHOLECALCIFEROL 400 UNITS 10 MCG TAB PO SCH (08:50)
[2022-03-06] MEDS: PANTOprazole 40 MG TAB PO SCH (08:50)
[2022-03-06] MEDS: VITAMIN B COMPLEX TAB PO SCH (08:50)
[2022-03-06] MEDS: lisinopril 20 MG TAB PO SCH (08:50)
[2022-03-06] MEDS ORDERED: GABAPENTIN 600 MG TAB PO SCH (12:00)
[2022-03-06 12:03] LABS: BUN Creatinine Ratio 7.2 (10-20); Calcium 9.2 mg/dl (8.5-10.1); Creatinine Clr Calc Pharmacy 91.5 ml/min; Est GFR (African American) 97.3 ml/min; Est GFR (Non-African American) 83.9 ml/min; Magnesium 1.7 mg/dl (1.7-2.4); Phosphorus 2.9 mg/dl (2.5-4.9); Potassium 3.5 mmol/L (3.5-5.1)
--- NOTE | 2022-03-06 14:00 | Hospitalist Progress Note ---
Date of Service March 06, 2022 Assessment & Plan (1) Alcohol dependence: (2) Depression: (3) Tobacco use: (4) Hyponatremia: (5) Metabolic acidosis, increased anion gap: Plan: This is a 61-year-old male who has significant past medical history of HTN, HLD, alcohol abuse and GERD who presented to ED last evening due to patient wanting help for depression and abusing alcohol. Alcohol abuse Alcohol withdrawal Metabolic acidosis with increased anion gap due to alcohol PADMAJA as protocol with gabapentin taper As needed IV Ativan IVF 125cc/hr Daily folic acid and thiamine Discussed cessation, pt currently interested in inpt rehab also discussed OP AA meetings for extra support Does not have any significant withdrawal symptoms as of yet He is motivated at this time to go to inpatient rehab [employer] operations duty manager has been involved PT and OT has been ordered Not yet ready to be discharged as he is having early symptoms of withdrawal Will need a day or 2 more to resolved withdrawal symptoms from alcohol Has been ambulating in the hallway without any difficulties Physical therapy was not done as he has been doing too good Seems to be minimal or no withdrawal symptoms-we will discontinue any use of Ativan If he remains stable can be discharged tomorrow to inpatient rehab facility Intention tremor Has a strong family history of intention tremor We will try to put some medications for that on discharge We will put very small dose of primidone to control intention tremor Depression ongoing, denies suicidal or homicidal ideation Consult psychiatry to discuss initiation therapy also discussed establishing out pt counseling through [facility] Appreciate psychiatric input and recommendation Hyponatremia obtain urine studies likely 2/2 to alcohol use continue IVF, follow BMP, previously had been 133-134 in past currently 126 repeat bmp this evening-sodium level has been normalized Hypertension Bp stable pt did not start amlodipine like prescribed at last D/C he is taking lisinopril and clonidine will continue and monitor Hyperlipidemia statin currently on hold from previous admission due to elevated LFTS Mild transaminitis Statin on hold Likely in setting of alcohol abuse US from 12/29 shows evidence of hepatomegally and fatty change. Expected Tobacco abuse Encourage smoking cessation Patient currently declines nicotine patch DVT prophylaxis:Ambulate Dispo: PCU, CM consulted for inpt rehab, also pt should establish with outpt counseling in regards to depression in available through [facility] Full code PCP: [facility] Admission and Anticipated Discharge Date Admission Date: March 02, 2022 Subjective 03/03/2022 The patient was seen and examined in medical telemetry unit He has a strong family history of essential tremor She denies any palpitation and does not have any resting tremor The outstretched hand did not show any significant tremor but he does have intention tremor 03/04/2022 The patient was seen and examined in medical telemetry unit He has been anxious and feels that he is not yet ready to be discharged Is no significant tremor with outstretched hands but he feels palpitation at times 03/05/2022 The patient was seen and examined in medical telemetry unit He remains anxious and has minimal symptoms of withdrawal from alcohol Not yet ready to be discharged 03/06/2022 The patient was seen and examined in medical telemetry unit He remains anxious with minimal tremors involving the outstretched hands His intention tremor seems to be better to He has been ambulating in the hallway without any difficulties Wants to go to inpatient rehab Review of Systems Review of Systems: All systems reviewed and are unremarkable except as noted below Physical Exam Constitutional: well developed, well nourished, + ill appearing and + obese Eyes: PERRL, conjunctivae normal, anicteric sclerae ENMT: external ear and nose normal, oropharynx normal Neck: trachea midline, no thyromegaly Respiratory: no respiratory distress Auscultation: lungs clear to auscultation bilaterally Cardiovascular: Rate/Rhythm: regular rate and regular rhythm; not tachycardic Heart Sounds: normal S1 and normal S2; no murmur Extremities: no edema Gastrointestinal (Abdomen): Inspection/Auscultation: normal bowel sounds; abdomen not distended Percussion/Palpation: abdomen soft; abdomen nontender Musculoskeletal: No acute arthritis in any joint Neurologic: normal touch/pain/proprioception; not confused Minimal tremors involving the outstretched hands Psychiatric: A+Ox3, euthymic affect Lymphatic: no cervical or axillary lymphadenopathy Results & Data Results & [facility] Vital Signs (Past 12 Hours) Vital Signs Temp Pulse Resp BP Pulse Ox 03/06/22 07:38 36.6 C 70 18 144/87 H 94 03/06/22 03:15 37.3 C 74 20 144/86 H 94 Laboratory Results [facility] 03/06/22 10:40 Sodium 138 Potassium 3.5 Chloride 105 Carbon Dioxide 25 BUN 7 Creatinine 0.97 Glucose 147 H Calcium 9.2 Medications Administered Current Inpatient Medications Acetaminophen (Acetaminophen 325 Mg Tab) 650 mg PO Q4H PRN PRN Reason: Pain or Fever Stop: 04/01/22 19:57 Al Hydrox/Mg Hydrox/Simethicone (Aluminum/Magnesium Susp 30 Ml Udc) 15 ml PO Q4H PRN PRN Reason: Dyspepsia Stop: 04/01/22 19:57 Clonidine HCl (Clonidine Hcl 0.1 Mg Tab) 0.1 mg PO BID [facility] Stop: 04/01/22 20:59 Last Admin: 03/06/22 08:50 Dose: 0.1 mg Documented by: Folic Acid (Folic Acid 1 Mg Tab) 1 mg PO QAM [facility] Stop: 04/01/22 19:57 Last Admin: 03/06/22 08:50 Dose: 1 mg Documented by: Sodium Chloride (Nss 1000ml) 1,000 mls @ 125 mls/hr IV .Q8H [facility] Stop: 04/01/22 17:46 Last Infusion: 03/03/22 00:39 Dose: Infused Documented by: Lisinopril (Lisinopril 20 Mg Tab) 20 mg PO DAILY [facility] Stop: 04/02/22 08:59 Last Admin: 03/06/22 08:50 Dose: 20 mg Documented by: Magnesium Hydroxide (Magnesium Hydroxide Susp 30 Ml Udc) 30 ml PO Q12H PRN PRN Reason: Constipation Stop: 04/01/22 19:57 Ondansetron HCl (Ondansetron Inj 2 Mg/Ml 2 Ml Vial) 4 mg IV Q6H PRN PRN Reason: Nausea Stop: 04/01/22 19:57 Last Admin: 03/06/22 04:08 Dose: 4 mg Documented by: Pantoprazole Sodium (Pantoprazole 40 Mg Tab) 40 mg PO DAILY [facility] Stop: 04/02/22 08:59 Last Admin: 03/06/22 08:50 Dose: 40 mg Documented by: Polyethylene Glycol (Polyethylene (Miralax) 17 Gm Pack) 17 gm PO DAILY PRN PRN Reason: Constipation Stop: 04/01/22 19:57 Thiamine HCl (Thiamine Hcl 100 Mg Tab) 100 mg PO QAM [facility] Stop: 04/01/22 19:57 Last Admin: 03/06/22 08:50 Dose: 100 mg Documented by: Vitamin B Complex (Vitamin B Complex Tab) 1 tab PO DAILY [facility] Stop: 04/02/22 08:59 Last Admin: 03/06/22 08:50 Dose: 1 tab Documented by: Vitamin D (Cholecalciferol 400 Units 10 Mcg Tab) 400 units PO DAILY [facility] Stop: 04/02/22 08:59 Last Admin: 03/06/22 08:50 Dose: 400 units Documented by: (1) Alcohol dependence Complication of substance-induced condition: with unspecified complication Substance use status: with intoxication Qualified Code(s): F10.229 - Alcohol dependence with intoxication, unspecified (2) Depression Depression Type: unspecified Qualified Code(s): F32.9 - Major depressive disorder, single episode, unspecified
[2022-03-06] MEDS ORDERED: PRIMIDONE 50 MG TAB PO SCH (21:00)
[2022-03-06] MEDS: PRIMIDONE 50 MG TAB PO SCH (22:28)
[2022-03-07 08:58] LABS: Basophils # (auto) 0.02 K/uL (0-0.2); Basophils % (auto) 0.4 %; Hematocrit (blood only) 46.8 % (42-52); Hemoglobin 16.4 g/dL (14.0-18.0); Immature Granulocytes # (auto) 0.02 K/uL (0.00-0.02); Immature Granulocytes % (auto) 0.4 %; Lymphocytes # (auto) 1.61 K/uL (1.2-3.4); Lymphocytes % (auto) 32.3 %; Mean Corpuscular Hemoglobin 33.6 pg (25-34); Mean Corpuscular Volume 95.9 fL (80-100); Mean Platelet Volume 10.6 fL (7.4-10.4); Monocytes # (auto) 0.52 K/uL (0.11-0.59); Monocytes % (auto) 10.4 %; Neutrophils # (auto) 2.61 K/uL (1.4-6.5); Neutrophils % (auto) 52.5 %; Platelet Count 167 K/uL (130-400); RDW Coefficient of Variation 12.7 % (11.5-14.5); RDW Standard Deviation 44.1 fL (36.4-46.3); Red Blood Count 4.88 M/uL (4.7-6.1); White Blood Count 4.98 K/uL (4.8-10.8)
[2022-03-07 09:13] LABS: BUN Creatinine Ratio 7.9 (10-20); Calcium 9.7 mg/dl (8.5-10.1); Est GFR (Non-African American) 92.3 ml/min; Magnesium 1.6 mg/dl (1.7-2.4); Phosphorus 3.5 mg/dl (2.5-4.9); Potassium 3.7 mmol/L (3.5-5.1)
[2022-03-07] MEDS: CHOLECALCIFEROL 400 UNITS 10 MCG TAB PO SCH (09:21)
[2022-03-07] MEDS: cloNIDine HCL 0.1 MG TAB PO SCH ×2 (09:21→21:01)
[2022-03-07] MEDS: THIAMINE HCL 100 MG TAB PO SCH (09:22)
[2022-03-07] MEDS: VITAMIN B COMPLEX TAB PO SCH (09:22)
[2022-03-07] MEDS: FOLIC ACID 1 MG TAB PO SCH (09:22)
[2022-03-07] MEDS: lisinopril 20 MG TAB PO SCH (09:22)
[2022-03-07] MEDS: PANTOprazole 40 MG TAB PO SCH (09:22)
--- NOTE | 2022-03-07 13:00 | XRay Report ---
LEFT FOOT 3 VIEWS CLINICAL HISTORY: Left foot pain. FINDINGS: 3 views of the left foot are obtained. No prior studies are available for comparison at the time of dictation. The skeletal structures are well mineralized. No fracture is identified. There is flattening of the second metatarsal head suggesting Freiberg's infraction. Question mild periostitis around the second metatarsal neck. Mild degenerative change is seen at the first metatarsophalangeal joint. The joint spaces of the foot are otherwise maintained. An os trigonum is incidentally noted. The overlying soft tissues are within normal limits. IMPRESSION: 1. No acute fracture is identified. 2. There is flattening of the second metatarsal head which is nonspecific and can be seen with Freibe rg's infraction. There is also mild periostitis along the distal second metatarsal neck. Correlate cl inically for point tenderness. Electronically signed by: Naif Champion M.D. 03/07/2022 12:58 PM
[2022-03-07] MEDS: ONDANSETRON INJ 2 MG/ML 2 ML VIAL IV PRN (13:11)
[2022-03-07] MEDS ORDERED: LORazepam 2 MG/1 ML VIAL IV STA (14:01)
[2022-03-07] MEDS: DICLOFENAC SOD 1% GEL 100 GM TUBE EXT SCH ×2 (14:03→21:03)
--- NOTE | 2022-03-07 14:24 | Hospitalist Progress Note ---
Date of Service March 07, 2022 Assessment & Plan (1) Alcohol dependence: (2) Depression: (3) Tobacco use: (4) Hyponatremia: (5) Metabolic acidosis, increased anion gap: Plan: This is a 61-year-old male who has significant past medical history of HTN, HLD, alcohol abuse and GERD who presented to ED last evening due to patient wanting help for depression and abusing alcohol. Alcohol abuse Alcohol withdrawal Metabolic acidosis with increased anion gap due to alcohol PADMAJA as protocol with gabapentin taper As needed IV Ativan IVF 125cc/hr Daily folic acid and thiamine Discussed cessation, pt currently interested in inpt rehab also discussed OP AA meetings for extra support Does not have any significant withdrawal symptoms as of yet He is motivated at this time to go to inpatient rehab annual campaign manager has been involved PT and OT has been ordered Not yet ready to be discharged as he is having early symptoms of withdrawal Will need a day or 2 more to resolved withdrawal symptoms from alcohol Has been ambulating in the hallway without any difficulties Physical therapy was not done as he has been doing too good Seems to be minimal or no withdrawal symptoms-we will discontinue any use of Ativan If he remains stable can be discharged tomorrow to inpatient rehab facility Remains anxious with tremors and required another dose of intravenous Ativan today Will observe Left anterior foot pain Minimal swelling involving the base of second and third toes X-ray did not show minimal periostitis involving the second metatarsal base Diclofenac cream has been applied locally Intention tremor Has a strong family history of intention tremor We will try to put some medications for that on discharge We will put very small dose of primidone to control intention tremor Depression ongoing, denies suicidal or homicidal ideation Consult psychiatry to discuss initiation therapy also discussed establishing out pt counseling through [facility] Appreciate psychiatric input and recommendation Hyponatremia obtain urine studies likely 2/2 to alcohol use continue IVF, follow BMP, previously had been 133-134 in past currently 126 repeat bmp this evening-sodium level has been normalized Hypertension Bp stable pt did not start amlodipine like prescribed at last D/C he is taking lisinopril and clonidine will continue and monitor Hyperlipidemia statin currently on hold from previous admission due to elevated LFTS Mild transaminitis Statin on hold Likely in setting of alcohol abuse US from 12/29 shows evidence of hepatomegally and fatty change. Expected Tobacco abuse Encourage smoking cessation Patient currently declines nicotine patch DVT prophylaxis:Ambulate Dispo: PCU, CM consulted for inpt rehab, also pt should establish with outpt counseling in regards to depression in available through [facility] Full code PCP: [facility] Admission and Anticipated Discharge Date Admission Date: March 02, 2022 Subjective 03/03/2022 The patient was seen and examined in medical telemetry unit He has a strong family history of essential tremor She denies any palpitation and does not have any resting tremor The outstretched hand did not show any significant tremor but he does have intention tremor 03/04/2022 The patient was seen and examined in medical telemetry unit He has been anxious and feels that he is not yet ready to be discharged Is no significant tremor with outstretched hands but he feels palpitation at times 03/05/2022 The patient was seen and examined in medical telemetry unit He remains anxious and has minimal symptoms of withdrawal from alcohol Not yet ready to be discharged 03/06/2022 The patient was seen and examined in medical telemetry unit He remains anxious with minimal tremors involving the outstretched hands His intention tremor seems to be better to He has been ambulating in the hallway without any difficulties Wants to go to inpatient rehab 03/07/2022 Patient was seen and examined in medical telemetry unit He has been feeling better but complains pain in left anterior foot with some swelling This happened after a brief walk Has a history of gout but has not got any acute arthritis involving that area Still remains anxious and some tremor with outstretched hands Review of Systems Review of Systems: All systems reviewed and are unremarkable except as noted below Physical Exam Constitutional: well developed, well nourished, + ill appearing and + obese Eyes: PERRL, conjunctivae normal, anicteric sclerae ENMT: external ear and nose normal, oropharynx normal Neck: trachea midline, no thyromegaly Respiratory: no respiratory distress Auscultation: lungs clear to auscultation bilaterally Cardiovascular: Rate/Rhythm: regular rate and regular rhythm; not tachycardic Heart Sounds: normal S1 and normal S2; no murmur Extremities: no edema Gastrointestinal (Abdomen): Inspection/Auscultation: normal bowel sounds; abdomen not distended Percussion/Palpation: abdomen soft; abdomen nontender Musculoskeletal: No acute arthritis involving any joint Neurologic: normal touch/pain/proprioception; not confused Psychiatric: A+Ox3, euthymic affect Lymphatic: no cervical or axillary lymphadenopathy Results & Data Results & Data ([facility]) Vital Signs (Past 12 Hours) Vital Signs Temp Pulse Resp BP Pulse Ox 03/07/22 12:19 36.7 C 79 18 134/88 93 03/07/22 08:19 36.8 C 74 18 131/73 95 03/07/22 02:39 36.7 C 68 18 114/71 95 Laboratory Results Short CBC 03/07/22 Range/Units 08:18 WBC 4.98 (4.8-10.8) K/uL Hgb 16.4 (14.0-18.0) g/dL Hct 46.8 (42-52) % Plt Count 167 (130-400) K/uL BMP 03/07/22 08:18 Sodium 138 Potassium 3.7 Chloride 103 Carbon Dioxide 27 BUN 7 Creatinine 0.89 Glucose 145 H Calcium 9.7 Medications Administered Current Inpatient Medications Acetaminophen (Acetaminophen 325 Mg Tab) 650 mg PO Q4H PRN PRN Reason: Pain or Fever Stop: 04/01/22 19:57 Al Hydrox/Mg Hydrox/Simethicone (Aluminum/Magnesium Susp 30 Ml Udc) 15 ml PO Q4H PRN PRN Reason: Dyspepsia Stop: 04/01/22 19:57 Clonidine HCl (Clonidine Hcl 0.1 Mg Tab) 0.1 mg PO BID [facility] Stop: 04/01/22 20:59 Last Admin: 03/07/22 09:21 Dose: 0.1 mg Documented by: Diclofenac Sodium (Diclofenac Sod 1% Gel 100 Gm Tube) 2 gm EXT TID [facility] Stop: 04/06/22 13:59 Last Admin: 03/07/22 14:03 Dose: 2 gm Documented by: Folic Acid (Folic Acid 1 Mg Tab) 1 mg PO QAM [facility] Stop: 04/01/22 19:57 Last Admin: 03/07/22 09:22 Dose: 1 mg Documented by: Sodium Chloride (Nss 1000ml) 1,000 mls @ 125 mls/hr IV .Q8H [facility] Stop: 04/01/22 17:46 Last Infusion: 03/03/22 00:39 Dose: Infused Documented by: Lisinopril (Lisinopril 20 Mg Tab) 20 mg PO DAILY [facility] Stop: 04/02/22 08:59 Last Admin: 03/07/22 09:22 Dose: 20 mg Documented by: Magnesium Hydroxide (Magnesium Hydroxide Susp 30 Ml Udc) 30 ml PO Q12H PRN PRN Reason: Constipation Stop: 04/01/22 19:57 Ondansetron HCl (Ondansetron Inj 2 Mg/Ml 2 Ml Vial) 4 mg IV Q6H PRN PRN Reason: Nausea Stop: 04/01/22 19:57 Last Admin: 03/07/22 13:11 Dose: 4 mg Documented by: Pantoprazole Sodium (Pantoprazole 40 Mg Tab) 40 mg PO DAILY [facility] Stop: 04/02/22 08:59 Last Admin: 03/07/22 09:22 Dose: 40 mg Documented by: Polyethylene Glycol (Polyethylene (Miralax) 17 Gm Pack) 17 gm PO DAILY PRN PRN Reason: Constipation Stop: 04/01/22 19:57 Primidone (Primidone 50 Mg Tab) 25 mg PO HS [facility] Stop: 04/05/22 20:59 Last Admin: 03/06/22 22:28 Dose: 25 mg Documented by: Thiamine HCl (Thiamine Hcl 100 Mg Tab) 100 mg PO QAM [facility] Stop: 04/01/22 19:57 Last Admin: 03/07/22 09:22 Dose: 100 mg Documented by: Vitamin B Complex (Vitamin B Complex Tab) 1 tab PO DAILY [facility] Stop: 04/02/22 08:59 Last Admin: 03/07/22 09:22 Dose: 1 tab Documented by: Vitamin D (Cholecalciferol 400 Units 10 Mcg Tab) 400 units PO DAILY [facility] Stop: 04/02/22 08:59 Last Admin: 03/07/22 09:21 Dose: 400 units Documented by: (1) Alcohol dependence Complication of substance-induced condition: with unspecified complication Substance use status: with intoxication Qualified Code(s): F10.229 - Alcohol dependence with intoxication, unspecified (2) Depression Depression Type: unspecified Qualified Code(s): F32.9 - Major depressive disorder, single episode, unspecified
[2022-03-07] MEDS: PRIMIDONE 50 MG TAB PO SCH (21:01)
[2022-03-08] MEDS: ONDANSETRON INJ 2 MG/ML 2 ML VIAL IV PRN (06:33)
[2022-03-08] MEDS: DICLOFENAC SOD 1% GEL 100 GM TUBE EXT SCH (08:40)
[2022-03-08] MEDS: lisinopril 20 MG TAB PO SCH (08:40)
[2022-03-08] MEDS: PANTOprazole 40 MG TAB PO SCH (08:40)
[2022-03-08] MEDS: VITAMIN B COMPLEX TAB PO SCH (08:40)
[2022-03-08] MEDS: CHOLECALCIFEROL 400 UNITS 10 MCG TAB PO SCH (08:40)
[2022-03-08] MEDS: cloNIDine HCL 0.1 MG TAB PO SCH (08:40)
[2022-03-08] MEDS: FOLIC ACID 1 MG TAB PO SCH (08:40)
[2022-03-08] MEDS: THIAMINE HCL 100 MG TAB PO SCH (08:40)
--- NOTE | 2022-03-08 11:29 | Hospitalist Progress Note ---
Date of Service March 08, 2022 Assessment & Plan (1) Alcohol dependence: (2) Depression: (3) Tobacco use: (4) Hyponatremia: (5) Metabolic acidosis, increased anion gap: Plan: This is a 61-year-old male who has significant past medical history of HTN, HLD, alcohol abuse and GERD who presented to ED last evening due to patient wanting help for depression and abusing alcohol. Alcohol abuse Alcohol withdrawal Metabolic acidosis with increased anion gap due to alcohol PADMAJA as protocol with gabapentin taper As needed IV Ativan IVF 125cc/hr Daily folic acid and thiamine Discussed cessation, pt currently interested in inpt rehab also discussed OP AA meetings for extra support Does not have any significant withdrawal symptoms as of yet He is motivated at this time to go to inpatient rehab legal services manager has been involved PT and OT has been ordered Not yet ready to be discharged as he is having early symptoms of withdrawal Will need a day or 2 more to resolved withdrawal symptoms from alcohol Has been ambulating in the hallway without any difficulties Physical therapy was not done as he has been doing too good Seems to be minimal or no withdrawal symptoms-we will discontinue any use of Ativan If he remains stable can be discharged tomorrow to inpatient rehab facility Remains anxious with tremors and required another dose of intravenous Ativan today No more anxiety and or palpitation No tremors involving the outstretched hands and he has been ambulating without any difficulties He did talk to [facility] and is in agreement that he will be going there tomorrow He understands the importance of getting into rehab for himself Strongly advised to go for inpatient rehab Left anterior foot pain Minimal swelling involving the base of second and third toes X-ray did not show minimal periostitis involving the second metatarsal base Diclofenac cream has been applied locally No more pain involving the foot Intention tremor Has a strong family history of intention tremor We will try to put some medications for that on discharge We will put very small dose of primidone to control intention tremor Has been taking small dose of primidone and seems to be controlling the intention tremor Depression ongoing, denies suicidal or homicidal ideation Consult psychiatry to discuss initiation therapy also discussed establishing out pt counseling through [facility] Appreciate psychiatric input and recommendation Hyponatremia obtain urine studies likely 2/2 to alcohol use continue IVF, follow BMP, previously had been 133-134 in past currently 126 repeat bmp this evening-sodium level has been normalized Hypertension Bp stable pt did not start amlodipine like prescribed at last D/C he is taking lisinopril and clonidine will continue and monitor Hyperlipidemia statin currently on hold from previous admission due to elevated LFTS Mild transaminitis Statin on hold Likely in setting of alcohol abuse US from 12/29 shows evidence of hepatomegally and fatty change. Expected Tobacco abuse Encourage smoking cessation Patient currently declines nicotine patch DVT prophylaxis:Ambulate Dispo: PCU, CM consulted for inpt rehab, also pt should establish with outpt counseling in regards to depression in available through [facility] Full code PCP: [facility] Admission and Anticipated Discharge Date Admission Date: March 02, 2022 Subjective 03/03/2022 The patient was seen and examined in medical telemetry unit He has a strong family history of essential tremor She denies any palpitation and does not have any resting tremor The outstretched hand did not show any significant tremor but he does have intention tremor 03/04/2022 The patient was seen and examined in medical telemetry unit He has been anxious and feels that he is not yet ready to be discharged Is no significant tremor with outstretched hands but he feels palpitation at times 03/05/2022 The patient was seen and examined in medical telemetry unit He remains anxious and has minimal symptoms of withdrawal from alcohol Not yet ready to be discharged 03/06/2022 The patient was seen and examined in medical telemetry unit He remains anxious with minimal tremors involving the outstretched hands His intention tremor seems to be better to He has been ambulating in the hallway without any difficulties Wants to go to inpatient rehab 03/07/2022 Patient was seen and examined in medical telemetry unit He has been feeling better but complains pain in left anterior foot with some swelling This happened after a brief walk Has a history of gout but has not got any acute arthritis involving that area Still remains anxious and some tremor with outstretched hands 03/08/2022 The patient was seen and examined in medical telemetry unit He denies any more palpitation and/or tremors and he has been moving around in the hallway without any symptoms Did not require any more Ativan for the last 24 hours Will be discharged home this afternoon Review of Systems Review of Systems: All systems reviewed and are unremarkable except as noted below Physical Exam Physical Exam: Sitting on the bed without any acute distress Constitutional: well developed, well nourished and + obese; not ill appearing Eyes: PERRL, conjunctivae normal, anicteric sclerae ENMT: external ear and nose normal, oropharynx normal Neck: trachea midline, no thyromegaly Respiratory: no respiratory distress Auscultation: lungs clear to auscultation bilaterally Cardiovascular: Rate/Rhythm: regular rate and regular rhythm; not tachycardic Heart Sounds: normal S1 and normal S2; no murmur Extremities: no edema Gastrointestinal (Abdomen): Inspection/Auscultation: normal bowel sounds; abdomen not distended Percussion/Palpation: abdomen soft; abdomen nontender Musculoskeletal: No acute arthritis in any joint Neurologic: normal touch/pain/proprioception; not confused Psychiatric: A+Ox3, euthymic affect Lymphatic: no cervical or axillary lymphadenopathy Results & Data Results & Data ([facility]) Vital Signs (Past 12 Hours) Vital Signs Temp Pulse Pulse Resp BP BP Pulse Ox 03/08/22 07:34 36.4 C L 61 14 152/96 H 98 03/08/22 03:07 36.7 C 69 18 127/76 95 03/08/22 01:52 73 03/07/22 23:44 36.4 C L 69 18 133/82 95 Medications Administered Current Inpatient Medications Acetaminophen (Acetaminophen 325 Mg Tab) 650 mg PO Q4H PRN PRN Reason: Pain or Fever Stop: 04/01/22 19:57 Al Hydrox/Mg Hydrox/Simethicone (Aluminum/Magnesium Susp 30 Ml Udc) 15 ml PO Q4H PRN PRN Reason: Dyspepsia Stop: 04/01/22 19:57 Clonidine HCl (Clonidine Hcl 0.1 Mg Tab) 0.1 mg PO BID ARABELLA Stop: 04/01/22 20:59 Last Admin: 03/08/22 08:40 Dose: 0.1 mg Documented by: Diclofenac Sodium (Diclofenac Sod 1% Gel 100 Gm Tube) 2 gm EXT TID ARABELLA Stop: 04/06/22 13:59 Last Admin: 03/08/22 08:40 Dose: 2 gm Documented by: Folic Acid (Folic Acid 1 Mg Tab) 1 mg PO QAM ARABELLA Stop: 04/01/22 19:57 Last Admin: 03/08/22 08:40 Dose: 1 mg Documented by: Sodium Chloride (Nss 1000ml) 1,000 mls @ 125 mls/hr IV .Q8H ARABELLA Stop: 04/01/22 17:46 Last Infusion: 03/03/22 00:39 Dose: Infused Documented by: Lisinopril (Lisinopril 20 Mg Tab) 20 mg PO DAILY ARABELLA Stop: 04/02/22 08:59 Last Admin: 03/08/22 08:40 Dose: 20 mg Documented by: Magnesium Hydroxide (Magnesium Hydroxide Susp 30 Ml Udc) 30 ml PO Q12H PRN PRN Reason: Constipation Stop: 04/01/22 19:57 Ondansetron HCl (Ondansetron Inj 2 Mg/Ml 2 Ml Vial) 4 mg IV Q6H PRN PRN Reason: Nausea Stop: 04/01/22 19:57 Last Admin: 03/08/22 06:33 Dose: 4 mg Documented by: Pantoprazole Sodium (Pantoprazole 40 Mg Tab) 40 mg PO DAILY ARABELLA Stop: 04/02/22 08:59 Last Admin: 03/08/22 08:40 Dose: 40 mg Documented by: Polyethylene Glycol (Polyethylene (Miralax) 17 Gm Pack) 17 gm PO DAILY PRN PRN Reason: Constipation Stop: 04/01/22 19:57 Primidone (Primidone 50 Mg Tab) 25 mg PO HS ARABELLA Stop: 04/05/22 20:59 Last Admin: 03/07/22 21:01 Dose: 25 mg Documented by: Thiamine HCl (Thiamine Hcl 100 Mg Tab) 100 mg PO QAM ARABELLA Stop: 04/01/22 19:57 Last Admin: 03/08/22 08:40 Dose: 100 mg Documented by: Vitamin B Complex (Vitamin B Complex Tab) 1 tab PO DAILY ARABELLA Stop: 04/02/22 08:59 Last Admin: 03/08/22 08:40 Dose: 1 tab Documented by: Vitamin D (Cholecalciferol 400 Units 10 Mcg Tab) 400 units PO DAILY ARABELLA Stop: 04/02/22 08:59 Last Admin: 03/08/22 08:40 Dose: 400 units Documented by: (1) Alcohol dependence Complication of substance-induced condition: with unspecified complication Substance use status: with intoxication Qualified Code(s): F10.229 - Alcohol dependence with intoxication, unspecified (2) Depression Depression Type: unspecified Qualified Code(s): F32.9 - Major depressive disorder, single episode, unspecified
--- NOTE | 2022-03-09 07:49 | Discharge Summary ---
Date of Service March 09, 2022 Admission HPI Per Admitting Provider This is a 61-year-old male who has significant past medical history of HTN, HLD, alcohol abuse and GERD who presented to ED wanting help for depression and abusing alcohol. Patient was recently hospitalized 01/29-01/31 secondary to alcohol abuse and suicidal ideation. His hospitalization was uneventful as he was treated with gabapentin taper and IV Ativan as needed. During hospitalization his lisinopril was stopped and he was placed on amlodipine. His atorvastatin was also discontinued due to elevated LFTs. He states he remained sober for approximately 1 week. He lives alone at home, but in a big farm house that also has 2 other residents. Due to underlying depression he states that he resorted back to alcohol and started drinking 1 case of beer a day. His last drink was prior to arrival. He states he has not ate or drank anything other than alcohol for approximately 4 days. He denies any inciting events for his worsening depression, but feels his depression is unchanged from last hospitalization. He overall feels down and tearful. He denies any recent illness. He denies any suicidal or homicidal ideations. He does admit to being treated for depression in the past, but nothing recently. He also does not partake in outpatient counseling. He previously entertained alcohol rehab, but did not go. He also has not tried outpatient AA meetings. At this point in time he is interested in inpatient rehab as well as AA meetings. He denies any emotional support at home with family or friends. In regards to his medication he did not start his new medication amlodipine, and resorted back to lisinopril and clonidine. He also stopped taking his multivitamins. He denies any recent fever, chills, sweats, lightheadedness, dizziness, syncope, chest pain, shortness breath, cough, URI symptoms, nausea, vomiting, abdominal pain. He denies any prior history of seizures or DTs. In ED he remained hemodynamically stable. He received a banana bag and chlordiazepoxide. His lab work was signi ficant for hyponatremia at 126, low chloride at 92, elevated anion gap at 14, AST and ALT at 51 & 55 respectively and alcohol level of 228.6. Admission Exam Per Admitting Provider Physical Exam: Constitutional: WD/WN, vitals as above, NAD, sitting up in bed, pleasant, conversing easily, appears down, but not tearful Head: Normocephalic, Atraumatic Eyes: PERRL, conjunctivae normal, anicteric sclerae ENMT: external ear and nose normal, oropharynx normal Neck: trachea midline, no thyromegaly normal visual inspection Respiratory: normal respiratory effort, lungs clear to auscultation, no wheeze, rales, rhonchi. Normal insp/exp effort, no accessory muscle use Cardiovascular: RRR, no murmur, no edema Vessels: no JVD or carotid bruit Chest: normal inspection of chest Abdomen: normal bowel sounds, soft, nontender, no hepatosplenomegaly Musculoskeletal: no cyanosis or clubbing, extremities motor strength 5/5 Skin: no rashes, warm and dry normal turgor Neurologic: PERRL, EOMI, accommodation nl, no face palsy, no dysarthria CN's II-XI intact bilaterally and moves all extremities Psychiatric: A+Ox3, dysthymic affect Lymphatic: no cervical or axillary lymphadenopathy : deferred Principal Diagnosis Alcohol dependence, no withdrawal symptoms, depression, benign essential tremor Discharge Exam Sitting on the bed without any acute distress Constitutional well developed, well nourished and + obese; not ill appearing Eyes PERRL, conjunctivae normal, anicteric sclerae ENMT external ear and nose normal, oropharynx normal Neck trachea midline, no thyromegaly Respiratory no respiratory distress Auscultation: lungs clear to auscultation bilaterally Cardiovascular Rate/Rhythm: regular rate and regular rhythm; not tachycardic Heart Sounds: normal S1 and normal S2; no murmur Extremities: no edema Gastrointestinal (Abdomen) Inspection/Auscultation: normal bowel sounds; abdomen not distended Percussion/Palpation: abdomen soft; abdomen nontender Neurologic normal touch/pain/proprioception; not confused Psychiatric A+Ox3, euthymic affect Lymphatic no cervical or axillary lymphadenopathy Discharge Data Allergies Allergy/AdvReac Type Severity Reaction Status Date / Time No Known Allergies Allergy Verified 03/02/22 17:21 Consultations 03/02/22 16:54 ED Decision to Admit Stat 03/02/22 17:22 Consult Psychiatry Routine Hospital Course (1) Alcohol dependence: (2) Depression: (3) Tobacco use: (4) Hyponatremia: (5) Metabolic acidosis, increased anion gap: This is a 61-year-old male who has significant past medical history of HTN, HLD, alcohol abuse and GERD who presented to ED last evening due to patient wanting help for depression and abusing alcohol. Alcohol abuse Alcohol withdrawal Metabolic acidosis with increased anion gap due to alcohol PADMAJA as protocol with gabapentin taper As needed IV Ativan IVF 125cc/hr Daily folic acid and thiamine Discussed cessation, pt currently interested in inpt rehab also discussed OP AA meetings for extra support Does not have any significant withdrawal symptoms as of yet He is motivated at this time to go to inpatient rehab volunteer manager has been involved PT and OT has been ordered Not yet ready to be discharged as he is having early symptoms of withdrawal Will need a day or 2 more to resolved withdrawal symptoms from alcohol Has been ambulating in the hallway without any difficulties Physical therapy was not done as he has been doing too good Seems to be minimal or no withdrawal symptoms-we will discontinue any use of Ativan If he remains stable can be discharged tomorrow to inpatient rehab facility Remains anxious with tremors and required another dose of intravenous Ativan today No more anxiety and or palpitation No tremors involving the outstretched hands and he has been ambulating without any difficulties He did talk to [facility] and is in agreement that he will be going there tomorrow He understands the importance of getting into rehab for himself Strongly advised to go for inpatient rehab Left anterior foot pain Minimal swelling involving the base of second and third toes X-ray did not show minimal periostitis involving the second metatarsal base Diclofenac cream has been applied locally No more pain involving the foot Intention tremor Has a strong family history of intention tremor We will try to put some medications for that on discharge We will put very small dose of primidone to control intention tremor Has been taking small dose of primidone and seems to be controlling the intention tremor Depression ongoing, denies suicidal or homicidal ideation Consult psychiatry to discuss initiation therapy also discussed establishing out pt counseling through [facility] Appreciate psychiatric input and recommendation Hyponatremia obtain urine studies likely 2/2 to alcohol use continue IVF, follow BMP, previously had been 133-134 in past currently 126 repeat bmp this evening-sodium level has been normalized Hypertension Bp stable pt did not start amlodipine like prescribed at last D/C he is taking lisinopril and clonidine will continue and monitor Hyperlipidemia statin currently on hold from previous admission due to elevated LFTS Mild transaminitis Statin on hold Likely in setting of alcohol abuse US from 12/29 shows evidence of hepatomegally and fatty change. Expected Tobacco abuse Encourage smoking cessation Patient currently declines nicotine patch DVT prophylaxis:Ambulate Dispo: PCU, CM consulted for inpt rehab, also pt should establish with outpt counseling in regards to depression in available through [facility] Full code PCP: [facility] Total Time Total Time Spent Total Time Spent (In Minutes): 35 minutes Discharge Plan Discharge Items Patient Disposition: Home - Self-Care Reason For Visit: ALCOHOL WITHDRAWAL, DETOX Discharge Diagnosis: Alcohol dependence, no withdrawal symptoms, depression, benign essential tremor Condition on Discharge: Fair Activity: Resume your previous activity Non-emergency contact: Primary Care Provider Call non-emergency contact if: you have any medication questions and your symptoms worsen Follow-up/Referrals: [facility],Medicine [Primary Care Provider] - (Please make an appointment with your PCP within 1 week following discharge from the inpatient alcohol rehab facility) Diet: Regular Addtl Attending Provider Instructions: Please take precautions to avoid falls Strongly advised repeatedly to go to the inpatient facility for alcohol rehab as soon as possible Strongly advised to quit drinking Pending Studies at Discharge: No Stand-Alone Forms: My [employer], Smoking Cessation Medications and DC Order Prescriptions: New primidone 50 mg Tablet 25 mg PO HS 30 Days Qty: 15 RF: 0 diclofenac sodium [Voltaren Arthritis Pain] 1 % Gel 2 g EXT TID 30 Days Qty: 50 RF: 0 Continued omeprazole 20 mg Tablet,Delayed Release (Dr/Ec) 40 mg PO DAILY RF: 0 clonidine HCl 0.1 mg tablet 0.1 mg PO BID Qty: 0 RF: 0 vitamin B complex Tablet Extended Release 1 tab PO DAILY RF: 0 cholecalciferol (vitamin D3) 10 mcg (400 unit) Tablet,Chewable 20 mcg PO DAILY RF: 0 thiamine HCl (vitamin B1) 100 mg Tablet 100 mg PO QAM Qty: 30 RF: 0 folic acid 1 mg tablet 1 mg PO DAILY Qty: 30 RF: 0 lisinopril 10 mg Tablet 20 mg PO DAILY RF: 0 Discharge Orders: Discharge Order (Routine); Ordered 03/08/22 Ordered By: Wyatt Edgar Admission Data Admit Date/Time: 03/02/22 16:58 Attending Provider: Wyatt Edgar Admit Provider: Wyatt Edgar Primary Care Provider: Sharla [facility],Medicine Other Providers: Wyatt Edgar ; Yary Villagran ; Roxanna Pendleton ; Felicity Watson Other Interventions: Discharge Summary Assessment (RN) Last Done: 03/08/22 13:03
== END 2022-03-08 13:25 | disposition home or self-care (01) | DRG 897 ==
LOC: ED 13:39 → 2W 16:58

== ENCOUNTER 2022-04-20 10:44 | Inpatient (IN) ==
[2022-04-20] MEDS ORDERED: MULTI-VITAMIN INFUSION 10 ML, THIAMINE HCL 100 MG, FOLIC ACID 1 MG in SODIUM CHLORIDE 0... IV ONE (10:57)
[2022-04-20] MEDS ORDERED: SODIUM CHLORIDE 0.9% 500 ML IV SCH (11:00)
[2022-04-20] MEDS ORDERED: chlordiazePOXIDE HCl 25 MG CAP PO ONE (11:12)
[2022-04-20] MEDS ORDERED: LORazepam 2 MG/1 ML VIAL IV STA (11:12)
--- NOTE | 2022-04-20 11:17 | Emergency Department Note ---
Impression & Plan Alcohol abuse, Alcohol withdrawal, Acute hyponatremia, Elevated liver enzymes ED Provider Note NAME: ROBI WREN AGE: 61 SEX: M : 1960 ARRIVES VIA: Walk-In INFORMANT: [Patient] ED PROVIDER(S): [Naif Wiggins MD] CHIEF COMPLAINT: Detox request HISTORY OF PRESENT ILLNESS: The patient is a 61-year-old male with a history of alcohol abuse. He was sent to our facility by [facility]. The patient is asking for alcohol detox. He last drank about 30 minutes ago. The patient is drinking about a case to 30 beers a day. The patient states that yesterday, for an hour or 2, he had some chest pain and shortness of breath. He was resting at the time. The pain was mild to moderate in severity. He is not currently experiencing the symptoms. He has no history of coronary disease. There has been no fever, no chills. No cough or cold or congestion. The patient has been through alcohol detox before. He cannot ever recall having a seizure. REVIEW OF SYSTEMS: See HPI for pertinent positives and negatives. A total of ten systems were reviewed and were otherwise negative. PMHx/PSHx: See Below SOCIAL HISTORY: See Below. PHYSICAL EXAM: GENERAL: Patient is in no acute distress. Seems a bit anxious. HEENT: No acute trauma, normocephalic atraumatic, mucous membranes moist, no nasal congestion, no scleral icterus. NECK: No stridor, no adenopathy, no meningismus, trachea is midline. LUNGS: Clear to auscultation bilaterally, no wheeze, no rhonchi, breath sounds equal. HEART: Without murmurs gallops or rubs, regular rate and rhythm. ABDOMEN: Soft, nontender, bowel sounds positive, no peritonitis. EXTREMITIES: No cyanosis or edema, full range of motion of all the joints without pain or difficulty, no signs for acute trauma. NEUROLOGIC: Oriented x 3, no acute motor or sensory deficits, no focal weakness. Very slight speech slur. SKIN: No rash, no jaundice, no diaphoresis. DIFFERENTIAL DIAGNOSIS: Alcohol withdrawal, alcohol abuse, cardiac ischemia, musculoskeletal chest pain, pneumonia, PE, CHF, dehydration, electrolyte imbalance, liver or renal failure, dysrhythmia, among others. EMERGENCY DEPARTMENT COURSE/PROCEDURES: ECG: Indication was chest pain. The ECG shows a normal sinus rhythm with a rate of 74. There is no ST elevation, no PVCs. The QTC is 410 Continuous Cardiac Monitoring: An order was placed for continuous cardiac monitoring. The monitor shows a rate of 75 with normal sinus rhythm. MEDICAL DECISION MAKING: There is no leukocytosis. The patient is anemic. Platelet count is normal. Sodium was slightly low at 134, no renal failure. There were some subtle liver enzyme elevations, the bilirubin was normal. ECG shows a normal sinus rhythm, no obvious acute ischemia. Cardiac enzyme testing times 1 is not consistent with acute cardiac injury. The patient appears to be in a euthyroid state. Urinalysis does not show infection. Aspirin, Tylenol levels were undetectable. Urine tox was negative. Alcohol level was high at 236. COVID test returned negative. Chest x-ray did not show pneumonia or CHF. On exam, the patient appeared to be slurring his words slightly. He was not toxic, he was not febrile. The patient received IV saline, 500 cc. He was given IV saline with multivitamins, thiamine and folate. He was given IV Ativan and oral Librium. The patient is asking for alcohol detox. He has been through this process before. I did have him seen by case management. He is in need of hospitalization. Once detoxed, he can go to inpatient alcohol rehab at a different facility. I spoke with the patient and rn field case manager. The on-call hospitalist was consulted. Past Med/Surg History Medical History Alcohol withdrawal Anxiety Depression Dyslipidemia Essential tremor GERD (gastroesophageal reflux disease) Hypertension Mood disorder Suicidal ideation Suicidal thoughts Surgical History No history of previous surgery Family History Father , age 70 from [place] Coronary heart disease Social History Smoking Status: Current every day smoker Tobacco Type: Cigarettes Cigarettes Per Day: 0.5 pack daily; Second Hand Exposure: No; Hx Alcohol Use: Yes Alcohol type: beer Alcohol Intake Frequency Comment: case of beer a day Hx Substance Use: No Preferred Language: Armenian Communication Ability: Effective Trailer Sections Assembler Required: No Beliefs That Will Affect Care: None marital status: Current Living Situation: Alone Current Living Situation Comment: pt states lives in large farmhouse where two brothers unrelated to him live Feels Safe at Home: Yes Assistive Devices: None Allergies Allergies Allergy/AdvReac Type Severity Reaction Status Date / Time No Known Allergies Allergy Verified 04/20/22 14:43 Home Meds Home Medications Medication Instructions Recorded Confirmed omeprazole 20 mg tablet,delayed 40 mg PO BID 03/16/20 04/20/22 release vitamin B complex 1 tab PO BID 12/08/20 04/20/22 lisinopril 10 mg tablet 20 mg PO QAM 03/02/22 04/20/22 Previous Rx's Medication Instructions Recorded clonidine HCl 0.1 mg tablet 0.1 mg PO BID #0 tab 03/19/20 Results & Data (ED) Vital Signs Vital Signs - 24 hr 04/20/22 10:50 04/20/22 11:07 04/20/22 11:08 Temperature 36.4 C L 37.0 C Temperature Source Temporal Artery Scan Oral Pulse Rate 84 75 Pulse Rate [Apical] 75 Pulse Rate from SpO2 Sensor 76 Pulse Rhythm [Apical] Regular Pulse Strength [Apical] Normal Respiratory Rate 16 23 16 Respiratory Effort / Characteristics Non-Labored Spontaneous Respiratory Depth Normal Respiratory Pattern Regular Blood Pressure 147/90 H Blood Pressure [Right Arm] 138/91 Blood Pressure Mean 109 Blood Pressure Mean [Right Arm] 106 Blood Pressure Position [Right Arm] Lying Pulse Oximetry 94 95 94 Oxygen Delivery Method Room Air Room Air Sepsis Recent Fever Within 48 Hours No Sepsis New/Unexplained Change in Mental Status No Sepsis Action Taken by Nursing No Action Required 04/20/22 11:17 04/20/22 11:30 04/20/22 12:45 Temperature Temperature Source Pulse Rate 74 72 Pulse Rate [Apical] Pulse Rate from SpO2 Sensor 75 73 Pulse Rhythm [Apical] Pulse Strength [Apical] Respiratory Rate 16 22 Respiratory Effort / Characteristics Respiratory Depth Respiratory Pattern Blood Pressure 118/84 Blood Pressure [Right Arm] Blood Pressure Mean 95 Blood Pressure Mean [Right Arm] Blood Pressure Position [Right Arm] Pulse Oximetry 93 93 93 Oxygen Delivery Method Room Air Sepsis Recent Fever Within 48 Hours Sepsis New/Unexplained Change in Mental Status Sepsis Action Taken by Nursing 04/20/22 12:46 04/20/22 13:00 04/20/22 13:30 Temperature Temperature Source Pulse Rate 75 79 78 Pulse Rate [Apical] 78 Pulse Rate from SpO2 Sensor 75 Pulse Rhythm [Apical] Pulse Strength [Apical] Respiratory Rate 20 17 13 Respiratory Effort / Characteristics Non-Labored Spontaneous Respiratory Depth Normal Respiratory Pattern Regular Blood Pressure 160/97 H 166/97 H Blood Pressure [Right Arm] 128/76 Blood Pressure Mean 118 120 Blood Pressure Mean [Right Arm] 93 Blood Pressure Position [Right Arm] Pulse Oximetry 96 98 Oxygen Delivery Method Room Air Sepsis Recent Fever Within 48 Hours Sepsis New/Unexplained Change in Mental Status Sepsis Action Taken by Nursing 04/20/22 14:03 04/20/22 14:12 Temperature Temperature Source Pulse Rate 82 75 Pulse Rate [Apical] Pulse Rate from SpO2 Sensor 76 Pulse Rhythm [Apical] Pulse Strength [Apical] Respiratory Rate 18 16 Respiratory Effort / Characteristics Respiratory Depth Respiratory Pattern Blood Pressure 141/87 H 141/87 H Blood Pressure [Right Arm] Blood Pressure Mean 105 105 Blood Pressure Mean [Right Arm] Blood Pressure Position [Right Arm] Pulse Oximetry 94 Oxygen Delivery Method Sepsis Recent Fever Within 48 Hours Sepsis New/Unexplained Change in Mental Status Sepsis Action Taken by Long Term Medications Current Medication List: was personally reviewed by me Laboratory Data Attestation: I reviewed the patient's lab results. Result diagrams: 04/20/22 11:25 04/20/22 11:25 Lab Results 04/20/22 04/20/22 04/20/22 Range/Units 11:25 11:25 11:25 WBC 4.03 L (4.8-10.8) K/ul RBC 4.95 (4.63-6.08) M/uL Hgb 16.4 (14.0-18.0) g/dl Hct 45.0 (40.1-51.0) % MCV 90.9 (80.0-100.0) fL MCH 33.1 (25.0-34.0) pg MCHC 36.4 H (32.0-36.0) g/dL RDW Std Deviation 39.7 (36.4-46.3) fL RDW Coeff of Eloy 11.9 (11.5-14.5) % Plt Count 166 (130-400) K/uL MPV 9.5 (9.4-12.4) fL Immature Gran % (Auto) 0.0 % Neut % (Auto) 39.7 % Lymph % (Auto) 46.7 % [place] % (Auto) 11.2 % Eos % (Auto) 1.7 % Baso % (Auto) 0.7 % Neut # (Auto) 1.60 (1.4-6.5) K/uL Lymph # (Auto) 1.88 (1.2-3.4) K/uL [place] # (Auto) 0.45 (0.24-0.82) K/uL Eos # (Auto) 0.07 (0-0.50) K/uL Baso # (Auto) 0.03 (0-0.2) K/uL Immature Gran # (Auto) 0.00 (0.00-0.02) K/uL Sodium 134 L (136-145) mmol/L Potassium 3.7 (3.5-5.1) mmol/L Chloride 100 (98-107) mmol/L Carbon Dioxide 23 (21-32) mmol/L Anion Gap 11 (3-11) BUN 6 (6-23) mg/dl Creatinine 0.83 (0.6-1.4) mg/dl Est Cr Clr Drug Dosing 106.8 ml/min Est GFR ( Amer) 110.1 ml/min Est GFR (Non-Af Amer) 95.0 ml/min BUN/Creatinine Ratio 7.2 L (10-20) Glucose 141 H (70-99(Fasting)) mg/dl Calcium 9.0 (8.5-10.1) mg/dl Magnesium 1.9 (1.7-2.4) mg/dl Total Bilirubin 0.7 (0.2-1.0) mg/dl AST 85 H (13-39) U/L ALT 93 H (7-52) U/L Alkaline Phosphatase 95 (34-104) U/L Troponin I High Sens 4.6 (0-20) pg/ml Total Protein 7.5 (6.0-8.3) gm/dl Albumin 4.6 (3.4-5.0) gm/dl Globulin 2.9 (2.5-4.0) gm/dl Albumin/Globulin Ratio 1.6 (0.9-2) TSH 1.725 (0.300-4.500) uIu/ml Urine Color Urine Appearance (Clear) Urine pH (4.5-7.5) Ur Specific [place] (1.000-1.030) Urine Protein (Negative) Urine Glucose (UA) (Negative) Urine Ketones (Negative) Urine Blood (Negative) Urine Nitrite (Negative) Urine Bilirubin (Negative) Urine Urobilinogen (Negative) Ur Leukocyte Esterase (Negative) Salicylates (3.0-30) mg/dl Urine Opiates Screen (Neg) Ur Methadone, Qual (Neg) Acetaminophen (10-30) ug/ml Urine Barbiturates (Neg) Ur Phencyclidine (PCP) (Neg) U Amphetamin/Meth Scrn (Neg) MDMA (Ecstasy) Screen (Neg) U Benzodiazepines Scrn (Neg) Ur Cocaine Metabolite (Neg) U Marijuana (THC) Screen (Neg) Ethyl Alcohol mg/dL (<10.0) mg/dl SARS-CoV-2, RNA, NAAT (NEGATIVE) 04/20/22 04/20/22 04/20/22 Range/Units 11:25 11:25 11:25 WBC (4.8-10.8) K/ul RBC (4.63-6.08) M/uL Hgb (14.0-18.0) g/dl Hct (40.1-51.0) % MCV (80.0-100.0) fL MCH (25.0-34.0) pg MCHC (32.0-36.0) g/dL RDW Std Deviation (36.4-46.3) fL RDW Coeff of Eloy (11.5-14.5) % Plt Count (130-400) K/uL MPV (9.4-12.4) fL Immature Gran % (Auto) % Neut % (Auto) % Lymph % (Auto) % [place] % (Auto) % Eos % (Auto) % Baso % (Auto) % Neut # (Auto) (1.4-6.5) K/uL Lymph # (Auto) (1.2-3.4) K/uL [place] # (Auto) (0.24-0.82) K/uL Eos # (Auto) (0-0.50) K/uL Baso # (Auto) (0-0.2) K/uL Immature Gran # (Auto) (0.00-0.02) K/uL Sodium (136-145) mmol/L Potassium (3.5-5.1) mmol/L Chloride (98-107) mmol/L Carbon Dioxide (21-32) mmol/L Anion Gap (3-11) BUN (6-23) mg/dl Creatinine (0.6-1.4) mg/dl Est Cr Clr Drug Dosing ml/min Est GFR ( Amer) ml/min Est GFR (Non-Af Amer) ml/min BUN/Creatinine Ratio (10-20) Glucose (70-99(Fasting)) mg/dl Calcium (8.5-10.1) mg/dl Magnesium (1.7-2.4) mg/dl Total Bilirubin (0.2-1.0) mg/dl AST (13-39) U/L ALT (7-52) U/L Alkaline Phosphatase (34-104) U/L Troponin I High Sens (0-20) pg/ml Total Protein (6.0-8.3) gm/dl Albumin (3.4-5.0) gm/dl Globulin (2.5-4.0) gm/dl Albumin/Globulin Ratio (0.9-2) TSH (0.300-4.500) uIu/ml Urine Color Urine Appearance (Clear) Urine pH (4.5-7.5) Ur Specific [place] (1.000-1.030) Urine Protein (Negative) Urine Glucose (UA) (Negative) Urine Ketones (Negative) Urine Blood (Negative) Urine Nitrite (Negative) Urine Bilirubin (Negative) Urine Urobilinogen (Negative) Ur Leukocyte Esterase (Negative) Salicylates < 3.0 L (3.0-30) mg/dl Urine Opiates Screen (Neg) Ur Methadone, Qual (Neg) Acetaminophen < 3 L (10-30) ug/ml Urine Barbiturates (Neg) Ur Phencyclidine (PCP) (Neg) U Amphetamin/Meth Scrn (Neg) MDMA (Ecstasy) Screen (Neg) U Benzodiazepines Scrn (Neg) Ur Cocaine Metabolite (Neg) U Marijuana (THC) Screen (Neg) Ethyl Alcohol mg/dL 236.4 H (<10.0) mg/dl SARS-CoV-2, RNA, NAAT NEGATIVE (NEGATIVE) 04/20/22 04/20/22 Range/Units 12:00 12:00 WBC (4.8-10.8) K/ul RBC (4.63-6.08) M/uL Hgb (14.0-18.0) g/dl Hct (40.1-51.0) % MCV (80.0-100.0) fL MCH (25.0-34.0) pg MCHC (32.0-36.0) g/dL RDW Std Deviation (36.4-46.3) fL RDW Coeff of Eloy (11.5-14.5) % Plt Count (130-400) K/uL MPV (9.4-12.4) fL Immature Gran % (Auto) % Neut % (Auto) % Lymph % (Auto) % [place] % (Auto) % Eos % (Auto) % Baso % (Auto) % Neut # (Auto) (1.4-6.5) K/uL Lymph # (Auto) (1.2-3.4) K/uL [place] # (Auto) (0.24-0.82) K/uL Eos # (Auto) (0-0.50) K/uL Baso # (Auto) (0-0.2) K/uL Immature Gran # (Auto) (0.00-0.02) K/uL Sodium (136-145) mmol/L Potassium (3.5-5.1) mmol/L Chloride (98-107) mmol/L Carbon Dioxide (21-32) mmol/L Anion Gap (3-11) BUN (6-23) mg/dl Creatinine (0.6-1.4) mg/dl Est Cr Clr Drug Dosing ml/min Est GFR ( Amer) ml/min Est GFR (Non-Af Amer) ml/min BUN/Creatinine Ratio (10-20) Glucose (70-99(Fasting)) mg/dl Calcium (8.5-10.1) mg/dl Magnesium (1.7-2.4) mg/dl Total Bilirubin (0.2-1.0) mg/dl AST (13-39) U/L ALT (7-52) U/L Alkaline Phosphatase (34-104) U/L Troponin I High Sens (0-20) pg/ml Total Protein (6.0-8.3) gm/dl Albumin (3.4-5.0) gm/dl Globulin (2.5-4.0) gm/dl Albumin/Globulin Ratio (0.9-2) TSH (0.300-4.500) uIu/ml Urine Color Yellow Urine Appearance Clear (Clear) Urine pH 5.5 (4.5-7.5) Ur Specific [place] 1.004 (1.000-1.030) Urine Protein Negative (Negative) Urine Glucose (UA) Negative (Negative) Urine Ketones Negative (Negative) Urine Blood Negative (Negative) Urine Nitrite Negative (Negative) Urine Bilirubin Negative (Negative) Urine Urobilinogen Negative (Negative) Ur Leukocyte Esterase Negative (Negative) Salicylates (3.0-30) mg/dl Urine Opiates Screen Neg (Neg) Ur Methadone, Qual Neg (Neg) Acetaminophen (10-30) ug/ml Urine Barbiturates Neg (Neg) Ur Phencyclidine (PCP) Neg (Neg) U Amphetamin/Meth Scrn Neg (Neg) MDMA (Ecstasy) Screen Neg (Neg) U Benzodiazepines Scrn Neg (Neg) Ur Cocaine Metabolite Neg (Neg) U Marijuana (THC) Screen Neg (Neg) Ethyl Alcohol mg/dL (<10.0) mg/dl SARS-CoV-2, RNA, NAAT (NEGATIVE) Administered Medications Folic Acid (Folic Acid 1 Mg Tab) [facility] [place] Stop: 05/20/22 15:28 Last Admin: 04/20/22 16:16 Dose: 1 mg Documented by: [id number] Sodium Chloride (Nss 1000ml) 1,000 mls @ 125 mls/hr IV .Q8H [facility] Stop: 05/20/22 15:28 Last Admin: 04/20/22 16:13 Dose: 125 mls/hr Documented by: [id number] Thiamine HCl (Thiamine Hcl 100 Mg Tab) 100 mg PO QAM [facility] Stop: 05/20/22 15:28 Last Admin: 04/20/22 16:15 Dose: 100 mg Documented by: [id number] Discontinued Medications Chlordiazepoxide HCl (Chlordiazepoxide Hcl 25 Mg Cap) 25 mg PO NOW ONE Stop: 04/20/22 11:13 Last Admin: 04/20/22 11:30 Dose: 25 mg Documented by: [id number] Gabapentin (Gabapentin 600 Mg Tab) 1,200 mg PO NOW ONE Stop: 04/20/22 16:01 Last Admin: 04/20/22 16:15 Dose: 1,200 mg Documented by: [id number] Sodium Chloride (Nss) 500 mls @ 999 mls/hr IV .Q31M [facility] Stop: 04/20/22 11:30 Last Infusion: 04/20/22 12:04 Dose: 0 mls/hr Documented by: [id number] Admin: 04/20/22 11:31 Dose: 999 mls/hr Documented by: [id number] Multivitamins 10 ml/ Thiamine HCl 100 mg/ Folic Acid 1 mg/Sodium Chloride 1,011.2 mls @ 1,011.2 mls/hr IV .Q1H ONE Stop: 04/20/22 11:56 Last Infusion: 04/20/22 13:17 Dose: 0 mls/hr Documented by: [id number] Admin: 04/20/22 11:53 Dose: 1,011.2 mls/hr Documented by: [id number] Lorazepam 3 mg/ Syringe 3 mls @ 2 mls/min IV ONE ONE; Protocol Stop: 04/20/22 15:30 Last Admin: 04/20/22 16:17 Dose: Not Given Documented by: [id number] Lorazepam (Lorazepam 2 Mg/1 Ml Vial) 1 mg IV NOW STA; Protocol Stop: 04/20/22 11:13 Last Admin: 04/20/22 11:30 Dose: 1 mg Documented by: [id number] Imaging Data Radiologist's Impression: Chest X-Ray 04/20/22 10:58 XR chest 1V portable CLINICAL HISTORY: weakness TECHNIQUE: Single frontal radiograph of the chest was obtained. Comparison: Comparison is made to chest radiograph 03/02/2022 FINDINGS: No lines and tubes are seen. The cardiomediastinal silhouette is normal. Lungs are underinflated but clear. No evidence of pleural effusion or pneumothorax. IMPRESSION: No acute chest disease. ACT 112: Negative or not required by law. Electronically signed by: Ranjan Darling M.D. 04/20/2022 12:05 PM Discharge Plan Visit Data Chief Complaint: Detox Request Stated Complaint: CHEST PAIN, ARM/SHOULDER PAIN, ALCOHOL DETOX ED Provider: Naif Wiggins Discharge Problem: Alcohol abuse, Alcohol withdrawal, Acute hyponatremia, Elevated liver enzymes Patient Disposition: Admitted As Inpatient Condition: Fair Discharge Instructions Interventions: ED Discharge Assessment Last Done: 04/20/22 15:00
[2022-04-20 11:53] LABS: Basophils # (auto) 0.03 K/uL (0-0.2); Basophils % (auto) 0.7 %; Eosinophils # (auto) 0.07 K/uL (0-0.50); Eosinophils % (auto) 1.7 %; Hemoglobin 16.4 g/dl (14.0-18.0); Lymphocytes # (auto) 1.88 K/uL (1.2-3.4); Lymphocytes % (auto) 46.7 %; Mean Corpuscular Hemoglobin 33.1 pg (25.0-34.0); Mean Corpuscular Hgb Conc 36.4 g/dL (32.0-36.0); Mean Corpuscular Volume 90.9 fL (80.0-100.0); Mean Platelet Volume 9.5 fL (9.4-12.4); Monocytes # (auto) 0.45 K/uL (0.24-0.82); Monocytes % (auto) 11.2 %; Neutrophils % (auto) 39.7 %; Platelet Count 166 K/uL (130-400); RDW Coefficient of Variation 11.9 % (11.5-14.5); RDW Standard Deviation 39.7 fL (36.4-46.3); Red Blood Count 4.95 M/uL (4.63-6.08); White Blood Count 4.03 K/ul (4.8-10.8)
--- NOTE | 2022-04-20 12:07 | XRay Report ---
XR chest 1V portable CLINICAL HISTORY: weakness TECHNIQUE: Single frontal radiograph of the chest was obtained. Comparison: Comparison is made to chest radiograph 03/02/2022 FINDINGS: No lines and tubes are seen. The cardiomediastinal silhouette is normal. Lungs are underinflated but clear. No evidence of pleural effusion or pneumothorax. IMPRESSION: No acute chest disease. ACT 112: Negative or not required by law. Electronically signed by: Ranjan Darling M.D. 04/20/2022 12:05 PM
--- NOTE | 2022-04-20 12:14 | Electrocardiogram Report ---
Test Reason : Blood Pressure : / mmHG Vent. Rate : 074 BPM Atrial Rate : 074 BPM P-R Int : 168 ms QRS Dur : 084 ms QT Int : 370 ms P-R-T Axes : 051 038 025 degrees QTc Int : 410 ms Normal sinus rhythm Normal ECG When compared with ECG of 02-MAR-2022 14:51, No significant change was found Confirmed by Unruly Bishop ([id number]) on 04/20/2022 12:14:17 PM Referred By: Confirmed By:Chuy Bishop
[2022-04-20 12:15] LABS: Albumin Globulin Ratio 1.6 (0.9-2); Albumin Level 4.6 gm/dl (3.4-5.0); BUN Creatinine Ratio 7.2 (10-20); Bilirubin,Total 0.7 mg/dl (0.2-1.0); Creatinine Clr Calc Pharmacy 106.8 ml/min; Est GFR (African American) 110.1 ml/min; Globulin 2.9 gm/dl (2.5-4.0); Magnesium 1.9 mg/dl (1.7-2.4); Potassium 3.7 mmol/L (3.5-5.1); Total Protein 7.5 gm/dl (6.0-8.3)
[2022-04-20 12:17] LABS: Acetaminophen < 3 ug/ml (10-30); Salicylate < 3.0 mg/dl (3.0-30)
[2022-04-20 12:17] LABS: Appearance Urine Clear (Clear); Bilirubin Urine Negative (Negative); Blood Urine Negative (Negative); Color Urine Yellow; Glucose Urine UA Negative (Negative); Ketones Urine Negative (Negative); Leukocyte Esterase Urine Negative (Negative); Nitrite Urine Negative (Negative); Protein Urine Negative (Negative); Specific Gravity Urine 1.004 (1.000-1.030); Urobilinogen Urine Negative (Negative); pH Urine 5.5 (4.5-7.5)
[2022-04-20 12:19] LABS: Troponin I High Sensitivity 4.6 pg/ml (0-20)
[2022-04-20 12:36] LABS: Amphetamines+Metham, Urine Neg (Neg); Barbiturates, Urine Neg (Neg); Benzodiazepine, Urine Neg (Neg); Cocaine, Urine Neg (Neg); MDMA (Ecstacy), Urine Neg (Neg); Methadone, Urine Neg (Neg); Opiate, Urine Neg (Neg); Phencyclidine, Urine Neg (Neg)
[2022-04-20] MEDS ORDERED: LORazepam 1 MG in SYRINGE 0.5 ML IV PRN (15:29)
[2022-04-20] MEDS ORDERED: ACETAMINOPHEN 325 MG TAB PO PRN (15:29)
[2022-04-20] MEDS ORDERED: LORazepam 3 MG in SYRINGE 1.5 ML IV ONE (15:29)
[2022-04-20] MEDS ORDERED: ATIVAN IV ALCOHOL WITHDRAWL IV PRN (15:29)
[2022-04-20] MEDS ORDERED: LORazepam 2 MG in SYRINGE 1 ML IV PRN (15:29)
[2022-04-20] MEDS ORDERED: GABAPENTIN 1200MG ALCOHOL WITHDRAWAL LOAD PO STA (15:29)
[2022-04-20] MEDS ORDERED: GABAPENTIN 600 MG TAB PO ONE (16:00)
[2022-04-20] MEDS: SODIUM CHLORIDE 0.9% 1000ML 1,000 ML IV SCH (16:13)
[2022-04-20] MEDS: THIAMINE HCL 100 MG TAB PO SCH (16:15)
[2022-04-20] MEDS: FOLIC ACID 1 MG TAB PO SCH (16:16)
--- NOTE | 2022-04-20 18:47 | History & Physical Report ---
Date of Service April 20, 2022 Assessment & Plan (1) Alcohol abuse: Plan: Admit to [facility] with telemetry Patient presenting from home with request for alcohol detox Patient well-known to our service for similar admissions in the past. Most recently February 2022, patient was to go to inpatient rehab after discharge however patient reports that he never received a call from the facility stating that his bed was ready. Continues to drink 1 case of beer per day, last drink this morning before coming to the hospital Alcohol withdrawal protocol with gabapentin Thiamine, folic acid (2) Chest pain: Plan: Atypical Initial troponin negative, EKG without acute ST changes ?? Due to alcohol gastritis or GERD, continue PPI. Consider adding famotidine with recurrence Trend troponin, consider further cardiac work-up if troponin elevates (3) Elevated LFTs: Plan: Mild elevation in AST and ALT, likely due to alcohol use Trend LFTs Continue statin for now, consider holding if further LFT elevation (4) Hypertension: Plan: BP controlled, continue clonidine and lisinopril (5) Essential tremor: Plan: Prescribed primidone at previous discharge however patient never picked up the prescription Resume primidone 25 mg HS (6) Dyslipidemia: Plan: Continue statin (7) GERD (gastroesophageal reflux disease): Plan: Continue PPI (8) DVT prophylaxis: Plan: SCDs Admission and Anticipated Discharge Date Admission Date: April 20, 2022 History of Present Illness Chief Complaint: Alcohol detox request Primary Care Provider: [facility] 61-year-old male with PMH HTN, alcohol abuse, depression, essential tremor, and other problems listed below who presents to the ED with alcohol detox request. Patient is well-known to our service for similar admissions in the past. Most recently being admitted 03/02 through 03/09. Patient was to go to inpatient rehab after discharge however patient reports that he never received a call from the facility that his bed was ready. Patient reports drinking a case of beer daily since being discharged in the hospital. Reports feeling depressed however denies suicidal/homicidal ideations or plan. Patient reports he experienced episode of midsternal chest pain yesterday morning. Reports that it radiated into his left arm. Lasted for about 1 hour. Patient reports symptoms resolved after he drank a couple of beers. Reports associated shortness of breath and nausea. No lightheadedness, dizziness, diaphoresis, syncopal events. Denies any other recent illnesses, fevers, chills. No abdominal pain, vomiting, diarr hea. Denies urinary symptoms. Last drink was this morning before coming to the hospital. In the ED, patient is hemodynamically stable. Labs show mildly elevated AST and ALT, alcohol level 236. Initial troponin negative, EKG without acute ST changes. Patient was given p.o. Librium, IV lorazepam, banana bag. Allergies Allergy/AdvReac Type Severity Reaction Status Date / Time No Known Allergies Allergy Verified 04/20/22 14:43 Home Medications Medication Instructions Recorded Confirmed Type omeprazole 20 mg tablet,delayed 40 mg PO BID 03/16/20 04/20/22 History release clonidine HCl 0.1 mg tablet 0.1 mg PO BID #0 tab 03/19/20 04/20/22 Rx vitamin B complex 1 tab PO BID 12/08/20 04/20/22 History lisinopril 10 mg tablet 20 mg PO QAM 03/02/22 04/20/22 History Past Med/Surg History Medical History Alcohol withdrawal Anxiety Depression Dyslipidemia Essential tremor GERD (gastroesophageal reflux disease) Hypertension Mood disorder Suicidal ideation Suicidal thoughts Surgical History No history of previous surgery Family History Father , age 70 from [place] Coronary heart disease Social History Smoking Status: Current every day smoker Tobacco Type: Cigarettes Cigarettes Per Day: 0.5 pack daily; Second Hand Exposure: No; Hx Alcohol Use: Yes Alcohol type: beer Alcohol Intake Frequency Comment: case of beer a day Hx Substance Use: No Preferred Language: Kyrgyz Communication Ability: Effective 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: No Beliefs That Will Affect Care: None marital status: Current Living Situation: Alone Current Living Situation Comment: pt states lives in large farmhouse where two brothers unrelated to him live Feels Safe at Home: Yes Assistive Devices: None Review of Systems Review of Systems: ROS per HPI, all other systems reviewed and negative Physical Exam Constitutional: WD/WN, vitals as above Eyes: PERRL, conjunctivae normal, anicteric sclerae ENMT: external ear and nose normal, oropharynx normal Respiratory: normal respiratory effort, lungs clear to auscultation Cardiovascular: Rate/Rhythm: regular rate and regular rhythm Vessels: normal peripheral pulses Extremities: no edema Gastrointestinal (Abdomen): normal bowel sounds, soft, nontender, no hepatosplenomegaly Musculoskeletal: no cyanosis or clubbing, extremities motor strength 5/5 Skin: no rashes, warm and dry Neurologic: PERRL, EOMI, accommodation nl, no face palsy, no dysarthria Motor/Sensory: + tremor (right hand with outstretched hands-chronic per patient) Psychiatric: A+Ox3, euthymic affect Results & Data Results & Data ([facility]) Vital Signs (Past 12 Hours) Vital Signs Temp Pulse Pulse Resp BP BP Pulse Ox 04/20/22 16:00 74 04/20/22 15:30 36.7 C 74 16 157/99 H 95 04/20/22 15:00 73 17 04/20/22 14:30 74 15 161/95 H 97 04/20/22 14:12 75 16 141/87 H 94 04/20/22 14:03 82 18 141/87 H 04/20/22 13:30 78 13 04/20/22 13:00 79 78 17 166/97 H 128/76 98 04/20/22 12:46 75 20 160/97 H 96 04/20/22 12:45 72 22 93 04/20/22 11:30 74 16 118/84 93 04/20/22 11:17 93 04/20/22 11:08 37.0 C 75 16 138/91 94 04/20/22 11:07 75 23 95 04/20/22 10:50 36.4 C L 84 16 147/90 H 94 Laboratory Results Short CBC 04/20/22 04/20/22 Range/Units 11:25 11:25 WBC 4.03 L (4.8-10.8) K/ul Hgb 16.4 (14.0-18.0) g/dl Hct 45.0 (40.1-51.0) % Plt Count 166 (130-400) K/uL AST 85 H (13-39) U/L ALT 93 H (7-52) U/L BMP 04/20/22 11:25 Sodium 134 L Potassium 3.7 Chloride 100 Carbon Dioxide 23 BUN 6 Creatinine 0.83 Glucose 141 H Calcium 9.0 Liver Function 04/20/22 Range/Units 11:25 Total Bilirubin 0.7 (0.2-1.0) mg/dl AST 85 H (13-39) U/L ALT 93 H (7-52) U/L Alkaline Phosphatase 95 (34-104) U/L Albumin 4.6 (3.4-5.0) gm/dl Urine 04/20/22 Range/Units 12:00 Urine Color Yellow Urine Appearance Clear (Clear) Urine pH 5.5 (4.5-7.5) Ur Specific [place] 1.004 (1.000-1.030) Urine Protein Negative (Negative) Urine Glucose (UA) Negative (Negative) Diagnostic Findings Chest X-Ray 04/20/22 10:58 XR chest 1V portable CLINICAL HISTORY: weakness TECHNIQUE: Single frontal radiograph of the chest was obtained. Comparison: Comparison is made to chest radiograph 03/02/2022 FINDINGS: No lines and tubes are seen. The cardiomediastinal silhouette is normal. Lungs are underinflated but clear. No evidence of pleural effusion or pneumothorax. IMPRESSION: No acute chest disease. ACT 112: Negative or not required by law. Electronically signed by: Ranjan Darling M.D. 04/20/2022 12:05 PM Code Status & VTE Plan VTE Prophylaxis Plan VTE Prophylaxis will be ordered: Yes Supervising Physician Co-Signing Physician Notes Patient was seen and evaluated independently. Chart was reviewed. Case was reviewed with RUBY. Agree with assessment and plan as above (1) GERD (gastroesophageal reflux disease) Esophagitis presence: esophagitis presence not specified Qualified Code(s): K21.9 - Gastro-esophageal reflux disease without esophagitis (2) Hypertension Hypertension type: unspecified Qualified Code(s): I10 - Essential (primary) hypertension
[2022-04-20] MEDS: ONDANSETRON INJ 2 MG/ML 2 ML VIAL IV PRN (21:25)
[2022-04-20] MEDS: GABAPENTIN 600 MG TAB PO SCH (21:26)
[2022-04-20] MEDS: PRIMIDONE 50 MG TAB PO SCH (21:26)
[2022-04-20] MEDS: cloNIDine HCL 0.1 MG TAB PO SCH (21:27)
[2022-04-20] MEDS: PANTOprazole 40 MG TAB PO SCH (21:27)
[2022-04-21] MEDS: SODIUM CHLORIDE 0.9% 1000ML 1,000 ML IV SCH ×2 (00:17→08:09)
[2022-04-21] MEDS: GABAPENTIN 600 MG TAB PO SCH ×3 (04:30→21:50)
[2022-04-21 07:56] LABS: Hematocrit (blood only) 43.4 % (40.1-51.0); Hemoglobin 15.4 g/dl (14.0-18.0); Mean Corpuscular Hemoglobin 33.4 pg (25.0-34.0); Mean Corpuscular Hgb Conc 35.5 g/dL (32.0-36.0); Mean Corpuscular Volume 94.1 fL (80.0-100.0); Mean Platelet Volume 10.1 fL (9.4-12.4); Platelet Count 152 K/uL (130-400); Red Blood Count 4.61 M/uL (4.63-6.08)
[2022-04-21] MEDS: lisinopril 20 MG TAB PO SCH (08:08)
[2022-04-21] MEDS: FOLIC ACID 1 MG TAB PO SCH (08:08)
[2022-04-21] MEDS: cloNIDine HCL 0.1 MG TAB PO SCH ×2 (08:08→21:48)
[2022-04-21] MEDS: THIAMINE HCL 100 MG TAB PO SCH (08:08)
[2022-04-21] MEDS: PANTOprazole 40 MG TAB PO SCH ×2 (08:09→21:49)
[2022-04-21 08:11] LABS: Albumin Level 4.1 gm/dl (3.4-5.0); Bilirubin Direct 0.2 mg/dl (0-0.2); Calcium 8.2 mg/dl (8.5-10.1); Creatinine Clr Calc Pharmacy 106.7 ml/min; Est GFR (African American) 110.1 ml/min; Potassium 3.8 mmol/L (3.5-5.1); Total Protein 6.8 gm/dl (6.0-8.3)
[2022-04-21] MEDS: ONDANSETRON INJ 2 MG/ML 2 ML VIAL IV PRN (10:13)
--- NOTE | 2022-04-21 13:40 | Hospitalist Progress Note ---
Date of Service April 21, 2022 Assessment & Plan (1) Alcohol abuse: Plan: Patient presenting from home with request for alcohol detox Patient well-known to our service for similar admissions in the past. Most recently February 2022, patient was to go to inpatient rehab after discharge however patient reports that he never received a call from the facility stating that his bed was ready. Continues to drink 1 case of beer per day, last drink this morning before coming to the hospital Alcohol withdrawal protocol with gabapentin and PRN gabapentin Thiamine, folic acid (2) Chest pain: Plan: Atypical negative trend overnight, EKG without acute ST changes ?? Due to alcohol gastritis or GERD, continue PPI. Consider adding famotidine with recurrence Pt denies chest pain at this time. No further cardiac workup indicated at this time (3) Elevated LFTs: Plan: Mild elevation in AST and ALT, likely due to alcohol use Trend LFTs Continue statin for now, consider holding if further LFT elevation (4) Hypertension: Plan: BP controlled, continue clonidine and lisinopril (5) Essential tremor: Plan: Prescribed primidone at previous discharge however patient never picked up the prescription Resume primidone 25 mg HS (6) DVT prophylaxis: Plan: SCDs/ambulation/Lovenox Full Code Dispo-to alcohol rehab inpatient--appreciate case management assistance with this. Celina Rayo DO [facility] Hospitalist Admission and Anticipated Discharge Date Admission Date: April 20, 2022 Subjective 61-year-old alcoholic presents for detoxification. Last drink was 10 AM yesterday, 04/20. Overnight patient reports asking for Ativan on a couple of occasions in the request being declined by nursing staff with the answer that gabapentin would be given in just a couple of hours. Reports elevated blood pressure overnight and some tremulousness and insomnia. I discussed the pathophysiology of alcohol withdrawal with the patient who is grateful and also somewhat with the nursing staff. Review of Systems Review of Systems: All systems reviewed negative except as indicated above. Physical Exam Physical Exam: CONSTITUTIONAL: WNWD, vitals as above, generally well- appearing, NAD EYES: normal conjunctivae, no scleral icterus ENT: external ear and nose normal, MMM NECK: trachea midline RESPIRATORY: clear to auscultation bilaterally, no crackles, rales or wheezes, normal respiratory effort CARDIOVASCULAR: regular rate and rhythm, S1 and 2 heard without murmurs, gallops or rubs, no JVD, no peripheral edema, CHEST: inspection of chest was normal GASTROINTESTINAL: soft, nontender, ND, no guarding MUSCULOSKELETAL: strength 5/5 throughout, head is normocephalic and atraumatic SKIN: warm and dry NEUROLOGIC: CN 2-12 grossly intact, no sensory deficit, normal cognition, normal speech, no tremor PSYCHIATRIC: alert cooperative and oriented to person, place and time. Euthymic mood, makes good eye contact, language grossly intact, recent and remote memory grossly intact. Results & Data Results & Data ([facility]) Vital Signs (Past 12 Hours) Vital Signs Temp Pulse Pulse Pulse Resp BP BP 04/21/22 11:58 36.9 C 69 20 150/81 H 04/21/22 07:17 36.7 C 69 20 159/94 H 04/21/22 07:10 04/21/22 07:10 65 04/21/22 03:00 36.5 C 75 18 172/98 H Pulse Ox O2 Del Method 04/21/22 11:58 95 Room Air 04/21/22 07:17 97 Room Air 04/21/22 07:10 Room Air 04/21/22 07:10 04/21/22 03:00 92 Room Air Laboratory Results Short CBC 04/21/22 Range/Units 06:57 WBC 4.30 L (4.8-10.8) K/ul Hgb 15.4 (14.0-18.0) g/dl Hct 43.4 (40.1-51.0) % Plt Count 152 (130-400) K/uL BMP 04/21/22 06:57 Sodium 136 Potassium 3.8 Chloride 104 Carbon Dioxide 25 BUN 5 L Creatinine 0.83 Glucose 103 H Calcium 8.2 L Liver Function 04/21/22 Range/Units 06:57 Total Bilirubin 1.0 (0.2-1.0) mg/dl Direct Bilirubin 0.2 (0-0.2) mg/dl AST 68 H (13-39) U/L ALT 78 H (7-52) U/L Alkaline Phosphatase 83 (34-104) U/L Albumin 4.1 (3.4-5.0) gm/dl Medications Administered Current Inpatient Medications Acetaminophen (Acetaminophen 325 Mg Tab) 650 mg PO Q4H PRN PRN Reason: pain/fever Stop: 05/20/22 15:28 Clonidine HCl (Clonidine Hcl 0.1 Mg Tab) 0.1 mg PO BID [facility] Stop: 05/20/22 20:59 Last Admin: 04/21/22 08:08 Dose: 0.1 mg Folic Acid (Folic Acid 1 Mg Tab) 1 mg PO QAM [facility] Stop: 05/20/22 15:28 Last Admin: 04/21/22 08:08 Dose: 1 mg Gabapentin (Gabapentin 600 Mg Tab) 600 mg PO Q8H [facility] Stop: 04/22/22 06:01 Last Admin: 04/21/22 13:20 Dose: 600 mg Gabapentin (Gabapentin 600 Mg Tab) 600 mg PO Q12H [facility] Stop: 04/23/22 06:01 Gabapentin (Gabapentin 600 Mg Tab) 600 mg PO Q24H [facility] Stop: 04/24/22 06:01 Lorazepam 1 mg/ Syringe 1 mls @ 2 mls/min IV UD PRN; Protocol PRN Reason: EtOH Withdrawal AWSS Score 6,7 Stop: 05/20/22 15:28 Lorazepam 2 mg/ Syringe 2 mls @ 2 mls/min IV UD PRN; Protocol PRN Reason: EtOH Withdrawal AWSS Score 8,9 Stop: 05/20/22 15:28 Lisinopril (Lisinopril 20 Mg Tab) [facility] Stop: 05/21/22 08:59 Last Admin: 04/21/22 08:08 Dose: 20 mg Ondansetron HCl (Ondansetron Inj 2 Mg/Ml 2 Ml Vial) 4 mg IV Q6H PRN PRN Reason: Nausea And Vomiting Stop: 05/20/22 19:49 Last Admin: 04/21/22 10:13 Dose: 4 mg Pantoprazole Sodium (Pantoprazole 40 Mg Tab) 40 mg PO BID [facility] Stop: 05/20/22 20:59 Last Admin: 04/21/22 08:09 Dose: 40 mg Primidone (Primidone 50 Mg Tab) 25 mg PO HS [facility] Stop: 05/20/22 20:59 Last Admin: 04/20/22 21:26 Dose: 25 mg Thiamine HCl (Thiamine Hcl 100 Mg Tab) 100 mg PO QAM [facility] Stop: 05/20/22 15:28 Last Admin: 04/21/22 08:08 Dose: 100 mg (1) Hypertension Hypertension type: unspecified Qualified Code(s): I10 - Essential (primary) hypertension
[2022-04-21] MEDS: ENOXAPARIN INJ 40 MG/0.4 ML SYR SQ SCH (21:48)
[2022-04-21] MEDS: PRIMIDONE 50 MG TAB PO SCH (21:51)
[2022-04-22] MEDS: GABAPENTIN 600 MG TAB PO SCH ×2 (06:05→17:14)
[2022-04-22] MEDS: THIAMINE HCL 100 MG TAB PO SCH (08:05)
[2022-04-22] MEDS: PANTOprazole 40 MG TAB PO SCH ×2 (08:05→20:25)
[2022-04-22] MEDS: lisinopril 20 MG TAB PO SCH (08:06)
[2022-04-22] MEDS: cloNIDine HCL 0.1 MG TAB PO SCH ×2 (08:06→20:24)
[2022-04-22] MEDS: FOLIC ACID 1 MG TAB PO SCH (08:06)
[2022-04-22] MEDS ORDERED: LORazepam 1 MG TAB PO STA (10:32)
--- NOTE | 2022-04-22 10:39 | Hospitalist Progress Note ---
Date of Service April 22, 2022 Assessment & Plan (1) Alcohol withdrawal: Plan: Patient presenting from home with request for alcohol detox Patient well-known to our service for similar admissions in the past. Most recently February 2022, patient was to go to inpatient rehab after discharge however patient reports that he never received a call from the facility stating that his bed was ready. Continues to drink 1 case of beer per day, last drink this morning before coming to the hospital slightly worse symptoms today although not severe enough to score on CIWA overnight. Alcohol withdrawal protocol with gabapentin and PRN gabapentin Thiamine, folic acid added some lorazepam PO for additional anxiety and cont this PRN anxiety as needed (2) Alcohol abuse: (3) Chest pain: Plan: Atypical negative trend overnight, EKG without acute ST changes ?? Due to alcohol gastritis or GERD, continue PPI. Consider adding famotidine with recurrence Pt denies chest pain at this time. No further cardiac workup indicated at this time (4) Elevated LFTs: Plan: Mild elevation in AST and ALT, likely due to alcohol use Trend LFTs Continue statin for now, consider holding if further LFT elevation (5) Hypertension: Plan: BP controlled, continue clonidine and lisinopril (6) Essential tremor: Plan: Prescribed primidone at previous discharge however patient never picked up the prescription Resume primidone 25 mg HS (7) DVT prophylaxis: Plan: SCDs/ambulation/Lovenox Full Code Dispo-to alcohol rehab inpatient--appreciate case management assistance with this. Celina Rayo DO [facility] Hospitalist Admission and Anticipated Discharge Date Admission Date: April 20, 2022 Subjective 61-year-old alcoholic presents for detoxification. some agitation anxiety this am trying to walk it off with laps around the hallway states he feels well for a couple of hours after the gabapentin, and then agitation and withdrawal symptoms will catch up with him denies pain or other issues today working with CM on dispo to rehab abdomen generally feels achy "not heartburn"-->denies TUMS or other treatments at this time Review of Systems Review of Systems: All systems reviewed negative except as indicated above. Physical Exam Physical Exam: CONSTITUTIONAL: WNWD, vitals as above, NAD but anxious appearing EYES: normal conjunctivae, no scleral icterus ENT: external ear and nose normal, MMM NECK: trachea midline RESPIRATORY: clear to auscultation bilaterally, no crackles, rales or wheezes, normal respiratory effort CARDIOVASCULAR: regular rate and rhythm, S1 and 2 heard without murmurs, gallops or rubs, no JVD, no peripheral edema, CHEST: inspection of chest was normal GASTROINTESTINAL: soft, nontender, ND, no guarding MUSCULOSKELETAL: strength 5/5 throughout, head is normocephalic and atraumatic SKIN: warm and dry NEUROLOGIC: CN 2-12 grossly intact, no sensory deficit, normal cognition, normal speech, no tremor PSYCHIATRIC: alert cooperative and oriented to person, place and time. Euthymic mood, makes good eye contact, language grossly intact, recent and remote memory grossly intact. Results & Data Results & Data ([facility]) Vital Signs (Past 12 Hours) Vital Signs Temp Pulse Pulse Resp BP Pulse Ox O2 Del Method 04/22/22 07:30 68 04/22/22 07:30 Room Air 04/22/22 07:06 36.8 C 66 18 160/94 H 96 Room Air 04/22/22 03:28 36.7 C 72 18 140/86 96 Room Air 04/21/22 23:14 70 04/21/22 23:06 36.5 C 68 18 151/87 H 95 Room Air Medications Administered Current Inpatient Medications Acetaminophen (Acetaminophen 325 Mg Tab) 650 mg PO Q4H PRN PRN Reason: pain/fever Stop: 05/20/22 15:28 Clonidine HCl (Clonidine Hcl 0.1 Mg Tab) 0.1 mg PO BID [facility] Stop: 05/20/22 20:59 Last Admin: 04/22/22 08:06 Dose: 0.1 mg Enoxaparin Sodium (Enoxaparin Inj 40 Mg/0.4 Ml Syr) 40 mg SQ HS [facility] Stop: 05/21/22 20:59 Last Admin: 04/21/22 21:48 Dose: 40 mg Folic Acid (Folic Acid 1 Mg Tab) 1 mg PO QAM [facility] Stop: 05/20/22 15:28 Last Admin: 04/22/22 08:06 Dose: 1 mg Gabapentin (Gabapentin 600 Mg Tab) 600 mg PO Q12H [facility] Stop: 04/23/22 06:01 Gabapentin (Gabapentin 600 Mg Tab) 600 mg PO Q24H [facility] Stop: 04/24/22 06:01 Lorazepam 1 mg/ Syringe 1 mls @ 2 mls/min IV UD PRN; Protocol PRN Reason: EtOH Withdrawal AWSS Score 6,7 Stop: 05/20/22 15:28 Lisinopril (Lisinopril 20 Mg Tab) 20 mg PO QAM [facility] Stop: 05/21/22 08:59 Last Admin: 04/22/22 08:06 Dose: 20 mg Lorazepam (Lorazepam 1 Mg Tab) 1 mg PO NOW STA Stop: 04/22/22 10:33 Lorazepam (Lorazepam 0.5 Mg Tab) 0.5 mg PO Q8H PRN PRN Reason: Anxiety Stop: 05/22/22 15:59 Ondansetron HCl (Ondansetron Inj 2 Mg/Ml 2 Ml Vial) 4 mg IV Q6H PRN PRN Reason: Nausea And Vomiting Stop: 05/20/22 19:49 Last Admin: 04/21/22 10:13 Dose: 4 mg Pantoprazole Sodium (Pantoprazole 40 Mg Tab) 40 mg PO BID [facility] Stop: 05/20/22 20:59 Last Admin: 04/22/22 08:05 Dose: 40 mg Primidone (Primidone 50 Mg Tab) 25 mg PO HS [facility] Stop: 05/20/22 20:59 Last Admin: 04/21/22 21:51 Dose: 25 mg Thiamine HCl (Thiamine Hcl 100 Mg Tab) 100 mg PO QAM [facility] Stop: 05/20/22 15:28 Last Admin: 04/22/22 08:05 Dose: 100 mg (1) Hypertension Hypertension type: unspecified Qualified Code(s): I10 - Essential (primary) hypertension
[2022-04-22] MEDS: ENOXAPARIN INJ 40 MG/0.4 ML SYR SQ SCH (20:25)
[2022-04-22] MEDS: PRIMIDONE 50 MG TAB PO SCH (20:26)
[2022-04-23] MEDS: GABAPENTIN 600 MG TAB PO SCH (05:07)
[2022-04-23] MEDS: THIAMINE HCL 100 MG TAB PO SCH (07:24)
[2022-04-23] MEDS: lisinopril 20 MG TAB PO SCH (07:24)
[2022-04-23] MEDS: FOLIC ACID 1 MG TAB PO SCH (07:25)
[2022-04-23] MEDS: PANTOprazole 40 MG TAB PO SCH ×2 (07:25→21:19)
[2022-04-23] MEDS: cloNIDine HCL 0.1 MG TAB PO SCH ×2 (07:25→21:18)
[2022-04-23] MEDS: LORazepam 0.5 MG TAB PO PRN (13:02)
--- NOTE | 2022-04-23 17:30 | Hospitalist Progress Note ---
Date of Service April 23, 2022 Assessment & Plan (1) Alcohol withdrawal: Plan: Patient presenting from home with request for alcohol detox Patient well-known to our service for similar admissions in the past. Most recently February 2022, patient was to go to inpatient rehab after discharge however patient reports that he never received a call from the facility stating that his bed was ready. Continues to drink 1 case of beer per day, last drink this morning before coming to the hospital slightly worse symptoms today although not severe enough to score on CIWA overnight. Alcohol withdrawal protocol with gabapentin and PRN gabapentin Thiamine, folic acid added some lorazepam PO for additional anxiety and cont this PRN anxiety as needed no evidence of alcohol withdrawal today awaiting rehab entrance on Tuesday (2) Alcohol abuse: Plan: inpatient rehab on Tuesday (3) Chest pain: Plan: Atypical negative trend overnight, EKG without acute ST changes ?? Due to alcohol gastritis or GERD, continue PPI. Consider adding famotidine with recurrence Pt denies chest pain at this time. No further cardiac workup indicated at this time (4) Elevated LFTs: Plan: Mild elevation in AST and ALT, likely due to alcohol use Trend LFTs Continue statin for now, consider holding if further LFT elevation (5) Hypertension: Plan: BP controlled, continue clonidine and lisinopril (6) Essential tremor: Plan: Prescribed primidone at previous discharge however patient never picked up the prescription Resume primidone 25 mg HS (7) DVT prophylaxis: Plan: SCDs/ambulation/Lovenox Full Code Dispo-to alcohol rehab inpatient--appreciate case management assistance with this. Celina Rayo DO [facility] Hospitalist Admission and Anticipated Discharge Date Admission Date: April 20, 2022 Subjective 61-year-old alcoholic presents for detoxification. Patient reports feeling upset this morning at one of the nurses. He reports the nurse was very condescending to him and is upset him to the point that he walked out of the hospital and went to his truck to get his meier tremor before coming back. He denies any worsened anxiety but reports that he is really glad he did not have any alcohol present to deal with the stress he was experiencing this morning. He declines any discussion with the supervising nurses at this time. Review of Systems Review of Systems: All systems reviewed negative except as indicated above. Physical Exam Physical Exam: CONSTITUTIONAL: WNWD, vitals as above, NAD but anxious appearing EYES: normal conjunctivae, no scleral icterus ENT: external ear and nose normal, MMM NECK: trachea midline RESPIRATORY: clear to auscultation bilaterally, no crackles, rales or wheezes, normal respiratory effort CARDIOVASCULAR: regular rate and rhythm, S1 and 2 heard without murmurs, gallops or rubs, no JVD, no peripheral edema, CHEST: inspection of chest was normal GASTROINTESTINAL: soft, nontender, ND, no guarding MUSCULOSKELETAL: strength 5/5 throughout, head is normocephalic and atraumatic SKIN: warm and dry NEUROLOGIC: CN 2-12 grossly intact, no sensory deficit, normal cognition, normal speech, no tremor PSYCHIATRIC: alert cooperative and oriented to person, place and time. Euthymic mood, makes good eye contact, language grossly intact, recent and remote memory grossly intact. Results & Data Results & Data ([facility]) Vital Signs (Past 12 Hours) Vital Signs Temp Pulse Pulse Resp BP Pulse Ox O2 Del Method 04/23/22 16:03 36.8 C 78 16 123/73 96 Room Air 04/23/22 15:26 77 04/23/22 08:02 36.6 C 66 16 146/79 H 98 Room Air 04/23/22 07:21 66 04/23/22 06:39 36.8 C 66 18 137/86 96 Room Air Medications Administered Current Inpatient Medications Acetaminophen (Acetaminophen 325 Mg Tab) 650 mg PO Q4H PRN PRN Reason: pain/fever Stop: 05/20/22 15:28 Clonidine HCl (Clonidine Hcl 0.1 Mg Tab) 0.1 mg PO BID [facility] Stop: 05/20/22 20:59 Last Admin: 04/23/22 07:25 Dose: 0.1 mg Enoxaparin Sodium (Enoxaparin Inj 40 Mg/0.4 Ml Syr) 40 mg SQ HS [facility] Stop: 05/21/22 20:59 Last Admin: 04/22/22 20:25 Dose: 40 mg Folic Acid (Folic Acid 1 Mg Tab) 1 mg PO QAM [facility] Stop: 05/20/22 15:28 Last Admin: 04/23/22 07:25 Dose: 1 mg Gabapentin (Gabapentin 600 Mg Tab) 600 mg PO Q24H [facility] Stop: 04/24/22 06:01 Lorazepam 1 mg/ Syringe 1 mls @ 2 mls/min IV UD PRN; Protocol PRN Reason: EtOH Withdrawal AWSS Score 6,7 Stop: 05/20/22 15:28 Lisinopril (Lisinopril 20 Mg Tab) 20 mg PO QAM [facility] Stop: 05/21/22 08:59 Last Admin: 04/23/22 07:24 Dose: 20 mg Lorazepam (Lorazepam 0.5 Mg Tab) 0.5 mg PO Q8H PRN PRN Reason: Anxiety Stop: 05/22/22 15:59 Last Admin: 04/23/22 13:02 Dose: 0.5 mg Ondansetron HCl (Ondansetron Inj 2 Mg/Ml 2 Ml Vial) 4 mg IV Q6H PRN PRN Reason: Nausea And Vomiting Stop: 05/20/22 19:49 Last Admin: 04/21/22 10:13 Dose: 4 mg Pantoprazole Sodium (Pantoprazole 40 Mg Tab) 40 mg PO BID [facility] Stop: 05/20/22 20:59 Last Admin: 04/23/22 07:25 Dose: 40 mg Primidone (Primidone 50 Mg Tab) 25 mg PO HS [facility] Stop: 05/20/22 20:59 Last Admin: 04/22/22 20:26 Dose: 25 mg Thiamine HCl (Thiamine Hcl 100 Mg Tab) 100 mg PO QAM [facility] Stop: 05/20/22 15:28 Last Admin: 04/23/22 07:24 Dose: 100 mg (1) Hypertension Hypertension type: unspecified Qualified Code(s): I10 - Essential (primary) hypertension
[2022-04-23] MEDS: PRIMIDONE 50 MG TAB PO SCH (21:19)
[2022-04-23] MEDS: ENOXAPARIN INJ 40 MG/0.4 ML SYR SQ SCH (21:19)
[2022-04-24] MEDS ORDERED: GABAPENTIN 600 MG TAB PO SCH (06:00)
[2022-04-24] MEDS: FOLIC ACID 1 MG TAB PO SCH (08:10)
[2022-04-24] MEDS: THIAMINE HCL 100 MG TAB PO SCH (08:10)
[2022-04-24] MEDS: lisinopril 20 MG TAB PO SCH (08:10)
[2022-04-24] MEDS: cloNIDine HCL 0.1 MG TAB PO SCH ×2 (08:10→20:25)
[2022-04-24] MEDS: PANTOprazole 40 MG TAB PO SCH ×2 (08:10→20:25)
[2022-04-24] MEDS ORDERED: ALUMINUM/MAGNESIUM SUSP 30 ML UDC PO STA (10:24)
[2022-04-24] MEDS: PRIMIDONE 50 MG TAB PO SCH (20:25)
[2022-04-24] MEDS: ENOXAPARIN INJ 40 MG/0.4 ML SYR SQ SCH (20:26)
--- NOTE | 2022-04-24 20:50 | Hospitalist Progress Note ---
Date of Service April 24, 2022 Assessment & Plan (1) Alcohol withdrawal: Plan: Patient presenting from home with request for alcohol detox Patient well-known to our service for similar admissions in the past. Most recently February 2022, patient was to go to inpatient rehab after discharge however patient reports that he never received a call from the facility stating that his bed was ready. Continues to drink 1 case of beer per day, last drink this morning before coming to the hospital slightly worse symptoms today although not severe enough to score on CIWA overnight. Alcohol withdrawal protocol with gabapentin and PRN gabapentin Thiamine, folic acid added some lorazepam PO for additional anxiety and cont this PRN anxiety as needed no evidence of alcohol withdrawal today awaiting rehab entrance on Tuesday (2) Alcohol abuse: Plan: inpatient rehab on Tuesday (3) Elevated LFTs: Plan: Mild elevation in AST and ALT, likely due to alcohol use Trend LFTs Continue statin for now, consider holding if further LFT elevation (4) Heartburn: Plan: Maalox is working for him, cont PRN. (5) Hypertension: Plan: BP controlled, continue clonidine and lisinopril (6) Essential tremor: Plan: Prescribed primidone at previous discharge however patient never picked up the prescription Resume primidone 25 mg HS (7) DVT prophylaxis: Plan: SCDs/ambulation/Lovenox Full Code Dispo-to alcohol rehab inpatient--appreciate case management assistance with this. Celina Rayo DO [facility] Hospitalist Admission and Anticipated Discharge Date Admission Date: April 20, 2022 Subjective 61-year-old alcoholic presents for detoxification. Patient doing well Ambulating around the room and going to garden for fresh air Feeling good about rehab tuesday Some heartburn improved with Maalox Review of Systems Review of Systems: All systems were reviewed and negative except as indicated in subjective abov.e Physical Exam Physical Exam: CONSTITUTIONAL: WNWD, vitals as above, NAD EYES: normal conjunctivae, no scleral icterus ENT: external ear and nose normal, MMM NECK: trachea midline RESPIRATORY: clear to auscultation bilaterally, no crackles, rales or wheezes, normal respiratory effort CARDIOVASCULAR: regular rate and rhythm, S1 and 2 heard without murmurs, gallops or rubs, no JVD, no peripheral edema, CHEST: inspection of chest was normal GASTROINTESTINAL: soft, nontender, ND, no guarding MUSCULOSKELETAL: strength 5/5 throughout, head is normocephalic and atraumatic SKIN: warm and dry NEUROLOGIC: CN 2-12 grossly intact, no sensory deficit, normal cognition, normal speech, no tremor PSYCHIATRIC: alert cooperative and oriented to person, place and time. Euthymic mood, makes good eye contact, language grossly intact, recent and remot e memory grossly intact. Results & Data Results & Data ([facility]) Vital Signs (Past 12 Hours) Vital Signs Temp Pulse Resp BP Pulse Ox 04/24/22 15:15 36.5 C 80 20 143/80 H 96 Medications Administered Current Inpatient Medications Acetaminophen (Acetaminophen 325 Mg Tab) 650 mg PO Q4H PRN PRN Reason: pain/fever Stop: 05/20/22 15:28 Clonidine HCl (Clonidine Hcl 0.1 Mg Tab) 0.1 mg PO BID [facility] Stop: 05/20/22 20:59 Last Admin: 04/24/22 20:25 Dose: 0.1 mg Enoxaparin Sodium (Enoxaparin Inj 40 Mg/0.4 Ml Syr) 40 mg SQ HS [facility] Stop: 05/21/22 20:59 Last Admin: 04/24/22 20:26 Dose: 40 mg Folic Acid (Folic Acid 1 Mg Tab) 1 mg PO QAM [facility] Stop: 05/20/22 15:28 Last Admin: 04/24/22 08:10 Dose: 1 mg Lorazepam 1 mg/ Syringe 1 mls @ 2 mls/min IV UD PRN; Protocol PRN Reason: EtOH Withdrawal AWSS Score 6,7 Stop: 05/20/22 15:28 Lisinopril (Lisinopril 20 Mg Tab) 20 mg PO QAM [facility] Stop: 05/21/22 08:59 Last Admin: 04/24/22 08:10 Dose: 20 mg Lorazepam (Lorazepam 0.5 Mg Tab) 0.5 mg PO Q8H PRN PRN Reason: Anxiety Stop: 05/22/22 15:59 Last Admin: 04/23/22 13:02 Dose: 0.5 mg Ondansetron HCl (Ondansetron Inj 2 Mg/Ml 2 Ml Vial) 4 mg IV Q6H PRN PRN Reason: Nausea And Vomiting Stop: 05/20/22 19:49 Last Admin: 04/21/22 10:13 Dose: 4 mg Pantoprazole Sodium (Pantoprazole 40 Mg Tab) 40 mg PO BID [facility] Stop: 05/20/22 20:59 Last Admin: 04/24/22 20:25 Dose: 40 mg Primidone (Primidone 50 Mg Tab) 25 mg PO HS [facility] Stop: 05/20/22 20:59 Last Admin: 04/24/22 20:25 Dose: 25 mg Thiamine HCl (Thiamine Hcl 100 Mg Tab) 100 mg PO QAM [facility] Stop: 05/20/22 15:28 Last Admin: 04/24/22 08:10 Dose: 100 mg (1) Hypertension Hypertension type: unspecified Qualified Code(s): I10 - Essential (primary) hypertension
[2022-04-25] MEDS ORDERED: ALUMINUM/MAGNESIUM/SIMETH (MAALOX MAX) 30 ML UDC PO STA (05:46)
[2022-04-25] MEDS ORDERED: ALUMINUM/MAGNESIUM SUSP 30 ML UDC PO PRN (07:34)
[2022-04-25 08:51] LABS: Hematocrit (blood only) 44.9 % (40.1-51.0); Hemoglobin 15.7 g/dl (14.0-18.0); Mean Corpuscular Hemoglobin 33.1 pg (25.0-34.0); Mean Corpuscular Volume 94.7 fL (80.0-100.0); Platelet Count 143 K/uL (130-400); RDW Standard Deviation 41.8 fL (36.4-46.3); Red Blood Count 4.74 M/uL (4.63-6.08); White Blood Count 5.65 K/ul (4.8-10.8)
[2022-04-25] MEDS: cloNIDine HCL 0.1 MG TAB PO SCH ×2 (08:55→20:30)
[2022-04-25] MEDS: FOLIC ACID 1 MG TAB PO SCH (08:55)
[2022-04-25] MEDS: lisinopril 20 MG TAB PO SCH (08:55)
[2022-04-25] MEDS: PANTOprazole 40 MG TAB PO SCH ×2 (08:55→20:30)
[2022-04-25] MEDS: THIAMINE HCL 100 MG TAB PO SCH (08:55)
[2022-04-25] MEDS: LORazepam 0.5 MG TAB PO PRN (09:02)
[2022-04-25 09:16] LABS: Albumin Globulin Ratio 1.4 (0.9-2); Albumin Level 4.2 gm/dl (3.4-5.0); BUN Creatinine Ratio 9.7 (10-20); Bilirubin,Total 1.1 mg/dl (0.2-1.0); Calcium 9.1 mg/dl (8.5-10.1); Creatinine Clr Calc Pharmacy 94.9 ml/min; Est GFR (African American) 102.3 ml/min; Est GFR (Non-African American) 88.3 ml/min; Globulin 2.9 gm/dl (2.5-4.0); Potassium 3.6 mmol/L (3.5-5.1); Total Protein 7.1 gm/dl (6.0-8.3)
--- NOTE | 2022-04-25 14:49 | Hospitalist Progress Note ---
Date of Service April 25, 2022 Assessment & Plan (1) Alcohol withdrawal: Plan: Patient presenting from home with request for alcohol detox Patient well-known to our service for similar admissions in the past. Most recently February 2022, patient was to go to inpatient rehab after discharge however patient reports that he never received a call from the facility stating that his bed was ready. Continues to drink 1 case of beer per day, last drink this morning before coming to the hospital slightly worse symptoms today although not severe enough to score on CIWA overnight. Alcohol withdrawal protocol with gabapentin and PRN gabapentin Thiamine, folic acid added some lorazepam PO for additional anxiety and cont this PRN anxiety as needed no evidence of alcohol withdrawal today awaiting rehab entrance on Tuesday (2) Alcohol abuse: Plan: inpatient rehab on Tuesday (3) Elevated LFTs: Plan: Mild elevation in AST and ALT, likely due to alcohol use Increase noted on bloodwork today, possibly related to toxicity from alcohol. There are no clinical signs of RUQ tenderness, fever, jaundice and bilirubin is normal. Uncertain if primidone may be contributing as this was recently started. Noticing a poorly controlled depression in setting of addiction. This is not the best time to start a medication such as primidone. Would re-evaluate as outpatient down the road. Considered that patient may be sneaking alcohol, however, this is less likely given his lack of ETOH in his system. (4) Heartburn: Plan: Maalox vs Ativan PRN. Abdominal pain may also be alcoholic gastritis. There is no report of blood per rectum or vomiting at this time. Cont supportive care. (5) Hypertension: Plan: BP controlled, continue clonidine and lisinopril (6) Essential tremor: Plan: Prescribed primidone at previous discharge however patient never picked up the prescription Resume primidone 25 mg HS--held per plan as above. (7) DVT prophylaxis: Plan: SCDs/ambulation/Lovenox Full Code Dispo-to alcohol rehab inpatient--appreciate case management assistance with th is. DO [facility] Hospitalist Admission and Anticipated Discharge Date Admission Date: April 20, 2022 Subjective 61-year-old alcoholic presents for detoxification. Patient doing well Ambulating around the room and going to garden for fresh air Feeling good about rehab tuesday Some abdominal pain reported that is not heartburn He reports this went away with Ativan that he took this am He was asking me for Ativan to take at the rehab facility, however, we discussed with this and/or sertraline that he has taken in the past is not a good idea. He verbalized understanding. Review of Systems Review of Systems: All systems were reviewed and negative except as indicated in subjective abov.e Physical Exam Physical Exam: CONSTITUTIONAL: WNWD, vitals as above, NAD EYES: normal conjunctivae, no scleral icterus ENT: external ear and nose normal, MMM NECK: trachea midline RESPIRATORY: clear to auscultation bilaterally, no crackles, rales or wheezes, normal respiratory effort CARDIOVASCULAR: regular rate and rhythm, S1 and 2 heard without murmurs, gallops or rubs, no JVD, no peripheral edema, CHEST: inspection of chest was normal GASTROINTESTINAL: soft, nontender, ND, no guarding MUSCULOSKELETAL: strength 5/5 throughout, head is normocephalic and atraumatic SKIN: warm and dry NEUROLOGIC: CN 2-12 grossly intact, no sensory deficit, normal cognition, normal speech, no tremor PSYCHIATRIC: alert cooperative and oriented to person, place and time. Euthymic mood, makes good eye contact, language grossly intact, recent and remote memory grossly intact. Results & Data Results & Data ([facility]) Vital Signs (Past 12 Hours) Vital Signs Temp Pulse Resp BP Pulse Ox O2 Del Method 04/25/22 07:22 36.8 C 67 16 137/94 95 Room Air Laboratory Results Short CBC 04/25/22 Range/Units 08:35 WBC 5.65 (4.8-10.8) K/ul Hgb 15.7 (14.0-18.0) g/dl Hct 44.9 (40.1-51.0) % Plt Count 143 (130-400) K/uL BMP 04/25/22 08:35 Sodium 136 Potassium 3.6 Chloride 103 Carbon Dioxide 25 BUN 9 Creatinine 0.93 Glucose 137 H Calcium 9.1 Liver Function 04/25/22 Range/Units 08:35 Total Bilirubin 1.1 H (0.2-1.0) mg/dl AST 167 H (13-39) U/L ALT 139 H (7-52) U/L Alkaline Phosphatase 68 (34-104) U/L Albumin 4.2 (3.4-5.0) gm/dl Medications Administered Current Inpatient Medications Acetaminophen (Acetaminophen 325 Mg Tab) 650 mg PO Q4H PRN PRN Reason: pain/fever Stop: 05/20/22 15:28 Al Hydrox/Mg Hydrox/Simethicone (Aluminum/Magnesium Susp 30 Ml Udc) 30 ml PO Q6H PRN PRN Reason: heartburn Stop: 05/25/22 07:33 Clonidine HCl (Clonidine Hcl 0.1 Mg Tab) 0.1 mg PO BID [facility] Stop: 05/20/22 20:59 Last Admin: 04/25/22 08:55 Dose: 0.1 mg Enoxaparin Sodium (Enoxaparin Inj 40 Mg/0.4 Ml Syr) 40 mg SQ HS [facility] Stop: 05/21/22 20:59 Last Admin: 04/24/22 20:26 Dose: 40 mg Folic Acid (Folic Acid 1 Mg Tab) 1 mg PO QAM [facility] Stop: 05/20/22 15:28 Last Admin: 04/25/22 08:55 Dose: 1 mg Lorazepam 1 mg/ Syringe 1 mls @ 2 mls/min IV UD PRN; Protocol PRN Reason: EtOH Withdrawal AWSS Score 6,7 Stop: 05/20/22 15:28 Lisinopril (Lisinopril 20 Mg Tab) 20 mg PO QAM [facility] Stop: 05/21/22 08:59 Last Admin: 04/25/22 08:55 Dose: 20 mg Lorazepam (Lorazepam 0.5 Mg Tab) 0.5 mg PO Q8H PRN PRN Reason: Anxiety Stop: 05/22/22 15:59 Last Admin: 04/25/22 09:02 Dose: 0.5 mg Ondansetron HCl (Ondansetron Inj 2 Mg/Ml 2 Ml Vial) 4 mg IV Q6H PRN PRN Reason: Nausea And Vomiting Stop: 05/20/22 19:49 Last Admin: 04/21/22 10:13 Dose: 4 mg Pantoprazole Sodium (Pantoprazole 40 Mg Tab) 40 mg PO BID [facility] Stop: 05/20/22 20:59 Last Admin: 04/25/22 08:55 Dose: 40 mg Primidone (Primidone 50 Mg Tab) 25 mg PO HS [facility] Stop: 05/20/22 20:59 Last Admin: 04/24/22 20:25 Dose: 25 mg Thiamine HCl (Thiamine Hcl 100 Mg Tab) [facility] Stop: 05/20/22 15:28 Last Admin: 04/25/22 08:55 Dose: 100 mg (1) Hypertension Hypertension type: unspecified Qualified Code(s): I10 - Essential (primary) hypertension
[2022-04-25] MEDS: ENOXAPARIN INJ 40 MG/0.4 ML SYR SQ SCH (20:30)
[2022-04-26] MEDS: LORazepam 0.5 MG TAB PO PRN (06:15)
[2022-04-26 07:02] LABS: Hematocrit (blood only) 44.7 % (40.1-51.0); Hemoglobin 15.5 g/dl (14.0-18.0); Mean Corpuscular Hemoglobin 32.9 pg (25.0-34.0); Mean Corpuscular Hgb Conc 34.7 g/dL (32.0-36.0); Mean Corpuscular Volume 94.9 fL (80.0-100.0); Mean Platelet Volume 10.2 fL (9.4-12.4); Platelet Count 142 K/uL (130-400); RDW Standard Deviation 42.1 fL (36.4-46.3); Red Blood Count 4.71 M/uL (4.63-6.08); White Blood Count 5.13 K/ul (4.8-10.8)
[2022-04-26 07:26] LABS: Albumin Globulin Ratio 1.3 (0.9-2); Albumin Level 4.3 gm/dl (3.4-5.0); BUN Creatinine Ratio 10.8 (10-20); Calcium 9.3 mg/dl (8.5-10.1); Creatinine Clr Calc Pharmacy 94.9 ml/min; Est GFR (African American) 102.3 ml/min; Est GFR (Non-African American) 88.3 ml/min; Globulin 3.2 gm/dl (2.5-4.0); Potassium 3.5 mmol/L (3.5-5.1); Total Protein 7.5 gm/dl (6.0-8.3)
--- NOTE | 2022-04-26 07:57 | Discharge Summary ---
Date of Service April 26, 2022 Admission HPI Per Admitting Provider 61-year-old male with PMH HTN, alcohol abuse, depression, essential tremor, and other problems listed below who presents to the ED with alcohol detox request. Patient is well-known to our service for similar admissions in the past. Most recently being admitted 03/02 through 03/09. Patient was to go to inpatient rehab after discharge however patient reports that he never received a call from the facility that his bed was ready. Patient reports drinking a case of beer daily since being discharged in the hospital. Reports feeling depressed however denies suicidal/homicidal ideations or plan. Patient reports he experienced episode of midsternal chest pain yesterday morning. Reports that it radiated into his left arm. Lasted for about 1 hour. Patient reports symptoms resolved after he drank a couple of beers. Reports associated shortness of breath and nausea. No lightheadedness, dizziness, diaphoresis, syncopal events. Denies any other recent illnesses, fevers, chills. No abdominal pain, vomiting, d iarrhea. Denies urinary symptoms. Last drink was this morning before coming to the hospital. In the ED, patient is hemodynamically stable. Labs show mildly elevated AST and ALT, alcohol level 236. Initial troponin negative, EKG without acute ST changes. Patient was given p.o. Librium, IV lorazepam, banana bag. Principal Diagnosis Alcohol withdrawal Alcohol Abuse Elevated LFTs Discharge Exam CONSTITUTIONAL: WNWD, vitals as above, NAD EYES: normal conjunctivae, no scleral icterus ENT: external ear and nose normal, MMM NECK: trachea midline RESPIRATORY: clear to auscultation bilaterally, no crackles, rales or wheezes, normal respiratory effort CARDIOVASCULAR: regular rate and rhythm, S1 and 2 heard without murmurs, gallops or rubs, no JVD, no peripheral edema, CHEST: inspection of chest was normal GASTROINTESTINAL: soft, nontender, ND, no guarding MUSCULOSKELETAL: strength 5/5 throughout, head is normocephalic and atraumatic SKIN: warm and dry NEUROLOGIC: CN 2-12 grossly intact, no sensory deficit, normal cognition, normal speech, no tremor PSYCHIATRIC: alert cooperative and oriented to person, place and time. Euthymic mood, makes good eye contact, language grossly intact, recent and remote memory grossly intact. Discharge Data Allergies Allergy/AdvReac Type Severity Reaction Status Date / Time No Known Allergies Allergy Verified 04/20/22 14:43 Consultations 04/20/22 13:38 ED Decision to Admit Stat Hospital Course (1) Alcohol withdrawal: (2) Alcohol abuse: (3) Elevated LFTs: (4) Heartburn: (5) Hypertension: (6) Essential tremor: Plan 61-year-old man with a history of alcohol abuse was sent to this facility by [place] [facility] in medicine after asking for alcohol detoxification. His last drink was the day of admission. He was placed on a gabapentin taper and required very little Ativan. He had a very mild alcohol withdrawal and at time of discharge there was no evidence of withdrawal for over 48 hours. He did have a rise in liver function tests likely secondary to recent alcohol use. He also mentions some abdominal discomfort which was initially improved with Maalox. However later the Maalox was not helping and Ativan was given completely resolving the abdominal pain. He was not having any blood per rectum or vomiting and was tolerating p.o. without issue. He did continue to use dip tobacco during his stay. He will be transferred in stable condition to inpatient rehabilitation for addiction counseling. We had several discussions about anxiety which appears to be uncontrolled partially driving his alcohol use. He was encouraged to follow-up closely with primary care in order to address this with a new treatment plan. It is recommended that repeat liver function test be drawn at the time of follow-up with primary care to ensure no further investigation is warranted. Of note at recent discharge from the hospital he was given primidone 25 mg nightly for essential tremor. He had not picked this up prior to coming in and was started on this at the beginning of his admission. With the side effects including worsening depression and the low priority of this, this medication is not recommended to be continued at this time and can be revisited later. Total Time Total Time Spent Total Time Spent (In Minutes): 60 Discharge Plan Discharge Items Patient Disposition: Drug & Alcohol Rehab Reason For Visit: CHEST PAIN, ALCOHOL DETOX Discharge Diagnosis: Alcohol withdrawal Alcohol Abuse Elevated LFTs Condition on Discharge: Good Activity: Resume your previous activity Non-emergency contact: Primary Care Provider Call non-emergency contact if: you have any medication questions, your symptoms worsen, your pain is not controlled, your pain is worsening, your pain is unusual for you, your pain is concerning for you and you have a fever Follow-up/Referrals: [facility],Medicine [Primary Care Provider] - Diet: Regular Addtl Attending Provider Instructions: Please take all medications as instructed on discharge list below. It is recommended that you follow-up with your primary care provider (PCP) within one week after discharge from rehab to have them repeat your liver function tests and ensure they are not rising. This appointment will also be important to address underlying anxiety and review medication and treatment options. The primidone you were started on at your last visit was for tremor. However, this medication can have side effects and it may not be the best time to start this medication. Please hold off on taking this until you can followup with your PCP and discuss this further. It was a pleasure taking care of you! Please call if you have any questions or problems. You can reach a [facility] hospitalist on duty at [facility] 24 hours a day by calling [phone]. Take care of yourself. Celina Rayo, DO [place] Hospitalist Pending Studies at Discharge: No Stand-Alone Forms: My [facility] Skilled Items Patient informed of condition?: Yes DNR: No Discharge Level of Care: Other Communicable Disease: No Discharge Prognosis: Stable Lines: None Urinary Catheter: No Medications and DC Order Prescriptions: Continued omeprazole 20 mg Tablet,Delayed Release (Dr/Ec) 40 mg PO BID clonidine HCl 0.1 mg tablet 0.1 mg PO BID Qty: 0 0RF vitamin B complex Tablet Extended Release 1 tab PO BID lisinopril 10 mg Tablet 20 mg PO QAM Discontinued primidone 50 mg Tablet 25 mg PO HS Discharge Orders: Discharge Order (Routine); Ordered 04/26/22 Ordered By: Celina Rayo Admission Data Admit Date/Time: 04/20/22 14:19 Attending Provider: Celina Rayo Admit Provider: Zohreh Grijalva [facility] Other Providers: Zohreh Grijalva
[2022-04-26] MEDS: PANTOprazole 40 MG TAB PO SCH (08:20)
[2022-04-26] MEDS: FOLIC ACID 1 MG TAB PO SCH (08:21)
[2022-04-26] MEDS: lisinopril 20 MG TAB PO SCH (08:21)
[2022-04-26] MEDS: THIAMINE HCL 100 MG TAB PO SCH (08:21)
[2022-04-26] MEDS: cloNIDine HCL 0.1 MG TAB PO SCH (08:26)
== END 2022-04-26 14:27 | disposition alcohol treatment (31) | DRG 897 ==
LOC: ED 10:44 → 2W 14:19 → SUATTDRO 14:19 → 2W 15:00

== ENCOUNTER 2022-07-03 19:40 | Inpatient (IN) ==
[2022-07-03] MEDS ORDERED: ONDANSETRON INJ 2 MG/ML 2 ML VIAL IV STA (20:02)
[2022-07-03] MEDS ORDERED: LORazepam 2 MG/2 ML SYR IV STA (20:02)
[2022-07-03] MEDS ORDERED: SODIUM CHLORIDE 0.9% 1000ML 1,000 ML IV SCH (20:15)
--- NOTE | 2022-07-03 20:28 | Emergency Department Note ---
Impression & Plan Alcoholic intoxication, Depression, Suicidal ideation ED Provider Note NAME: ROBI WREN AGE: 61 SEX: M : 1960 ARRIVES VIA: Ambulance INFORMANT: Patient, EMS ED PROVIDER(S): Lul Muñoz DO CHIEF COMPLAINT: Depression HPI: The patient is a 61-year-old male who presented to the emergency department by ambulance for depression and suicidal ideation. The patient has a history of alcohol abuse. The patient has had similar symptoms in the past with alcohol use and then presenting for psychiatric evaluation. Upon arrival to the emergency department the patient states he feels better and no longer has significant suicidal ideation but when he expressed he does admit to significant depression and states that he thinks about hurting himself frequently. He denies having any nausea or vomiting. He admits to significant amount of alcohol abuse today. He has had no hemoptysis. He denies having any black or bloody bowel moods. He denies having any withdrawal symptoms at this time but he states he has a history of alcohol withdrawal when he stops drinking. He has no desire for detox at this time. ROS: See above HPI for pertinent positives & negatives. A total of 10 systems reviewed and were otherwise negative. PAST MEDICAL HISTORY: See Below PAST SURGICAL HISTORY: See Below FAMILY HISTORY: See Below SOCIAL HISTORY: See Below HOME MEDICATIONS: See Below ALLERGIES: See Below VITALS: See Below PHYSICAL EXAMINATION: GENERAL: The patient is awake and alert. He appears comfortable. EYES: The conjunctivae are injected bilaterally. The pupils are round and reactive. EARS, NOSE, MOUTH AND THROAT: The nose is without any evidence of any deformity. Mucous membranes are moist. Tongue is midline. NECK: The neck is nontender and supple. RESPIRATORY: Normal respiratory effort is noted there is no evidence of wheezing rhonchi or rales CARDIOVASCULAR: Regular rate and rhythm noted there no murmurs rubs or gallops normal S1 normal S2. GASTROINTESTINAL: The abdomen is soft. Abdomen is nontender. MUSCULOSKELETAL/EXTREMITIES: There is no evidence of gross deformity full range of motion is noted in the hips and shoulders. SKIN: There is no obvious evidence of any rash. There are no petechiae, pallor or cyanosis noted. NEUROLOGIC: Patient is awake alert and oriented x3 strength is symmetric patellar reflexes are 2+ bilaterally PSYCH: Patient makes good eye contact mostly evaluation. His affect is flat. Currently he is denying suicidal ideation. MEDICAL DECISION MAKING: The patient is a 61-year-old male who presented to the emergency department for an evaluation of depression and suicidal ideation. The patient has a history of alcohol abuse. He was intoxicated clinically as well as by his laboratory studies. The patient was reevaluated multiple times. Initially the patient did state that he did not want to harm himself however on reevaluation by the nursing staff the patient was uncomfortable being discharged home and felt that he may harm himself. Given the patient's history of alcohol abuse as well as his history of withdrawal it would be very difficult and risky to allow the patient to become clinically intoxicated so he can be evaluated in the emergency department. This reason [facility] The patient will likely have to go through inpatient detox followed by an evaluation by [facility]. to determine if he has any further mental health needs. I [facility] this [facility] have agreed to evaluate the patient in the emergency department for further management and disposition. Triage Nursing notes reviewed. Prior medical records reviewed Vital Signs: reviewed and remarkable for no significant abnormalities Differential diagnosis: Alcohol intoxication, toxicologic, infection, hypoglycemia, electrolyte abnormalities, cardiac sources, intracerebral event, neurologic, trauma, as well as other pathologies. ER treatment provided: See below Diagnostics interpreted by me: ECG: EKG was obtained in the emergency department. My interpretation is sinus rhythm at 75 bpm. There is no ectopy. There is no acute ST segment abnormalities noted. This was compared to a tracing from April 20, 2022. No changes were noted. Cardiac Monitoring: An order was placed for continuous cardiac monitoring. The monitor shows a rate of 69 bpm with sinus rhythm. Laboratory studies: As stated above and show below. Imaging studies: See below Consultation(s): I discussed this case with Dr. Mullen who [facility] Past Med/Surg History Medical History Acute hyponatremia Alcohol abuse Alcohol abuse Alcohol withdrawal Alcohol withdrawal Alcohol withdrawal Anxiety Chest pain Depression DVT prophylaxis Dyslipidemia Elevated LFTs Elevated liver enzymes Essential tremor GERD (gastroesophageal reflux disease) Heartburn Hypertension Mood disorder Suicidal ideation Suicidal thoughts Surgical History No history of previous surgery Family History Father , age 70 from [place] Coronary heart disease Social History Smoking Status: Current every day smoker Tobacco Type: Cigarettes Cigarettes Per Day: 0.5 pack daily; Second Hand Exposure: No; Hx Alcohol Use: Yes Alcohol type: beer Alcohol Intake Frequency Comment: case of beer a day Hx Substance Use: No Preferred Language: Gabonese Communication Ability: Effective Health And Safety Trainer Required: No Beliefs That Will Affect Care: None marital status: Current Living Situation: Alone Current Living Situation Comment: pt states lives in large farmhouse where two brothers unrelated to him live Feels Safe at Home: Yes Assistive Devices: None Allergies Allergies Allergy/AdvReac Type Severity Reaction Status Date / Time No Known Allergies Allergy Verified 04/20/22 14:43 Home Meds Home Medications Medication Instructions Recorded Confirmed omeprazole 20 mg tablet,delayed 40 mg PO BID 03/16/20 07/03/22 release vitamin B complex 1 tab PO BID 12/08/20 07/03/22 lisinopril 10 mg tablet 20 mg PO QAM 03/02/22 07/03/22 Previous Rx's Medication Instructions Recorded clonidine HCl 0.1 mg tablet 0.1 mg PO BID #0 tabs 03/19/20 Results & Data (ED) Vital Signs Vital Signs - 24 hr 07/03/22 19:51 07/03/22 21:16 07/03/22 23:08 Temperature 36.7 C Temperature Source Oral Pulse Rate 79 Pulse Rate [Finger] 77 69 Pulse Rhythm Regular Pulse Rhythm [Finger] Regular Regular Pulse Strength Normal Pulse Strength [Finger] Normal Normal Respiratory Rate 22 16 16 Respiratory Effort / Characteristics Non-Labored Non-Labored Spontaneous Non-Labored Spontaneous Respiratory Depth Normal Normal Normal Respiratory Pattern Regular Regular Blood Pressure 167/96 H Blood Pressure [Right Arm] 105/64 114/55 L Blood Pressure Mean 119 Blood Pressure Mean [Right Arm] 77 74 Blood Pressure Position [Right Arm] Sitting Pulse Oximetry 92 97 97 Oxygen Delivery Method Room Air Nasal Cannula Nasal Cannula Oxygen Flow Rate 3 3 Sepsis Recent Fever Within 48 Hours No Sepsis New/Unexplained Change in Mental Status N/A Sepsis Action Taken by Nursing No Action Required 07/03/22 22:41 Temperature Temperature Source Pulse Rate Pulse Rate [Finger] 69 Pulse Rhythm Pulse Rhythm [Finger] Regular Pulse Strength Pulse Strength [Finger] Normal Respiratory Rate 16 Respiratory Effort / Characteristics Non-Labored Spontaneous Respiratory Depth Normal Respiratory Pattern Regular Blood Pressure Blood Pressure [Right Arm] 111/84 Blood Pressure Mean Blood Pressure Mean [Right Arm] 93 Blood Pressure Position [Right Arm] Pulse Oximetry 98 Oxygen Delivery Method Room Air Oxygen Flow Rate Sepsis Recent Fever Within 48 Hours Sepsis New/Unexplained Change in Mental Status Sepsis Action Taken by [facility] Medications Current Medication List: was personally reviewed by me Laboratory Data Attestation: I reviewed the patient's lab results. Result diagrams: 07/03/22 20:02 07/03/22 20:02 Lab Results 07/03/22 07/03/22 07/03/22 Range/Units 20:02 20:02 20:02 WBC 5.91 (4.8-10.8) K/ul RBC 5.49 (4.63-6.08) M/uL Hgb 17.8 (14.0-18.0) g/dl Hct 49.6 (40.1-51.0) % MCV 90.3 (80.0-100.0) fL MCH 32.4 (25.0-34.0) pg MCHC 35.9 (32.0-36.0) g/dL RDW Std Deviation 38.5 (36.4-46.3) fL RDW Coeff of Eloy 11.6 (11.5-14.5) % Plt Count 200 (130-400) K/uL MPV 9.7 (9.4-12.4) fL Immature Gran % (Auto) 0.2 % Neut % (Auto) 31.5 % Lymph % (Auto) 57.7 % [place] % (Auto) 8.5 % Eos % (Auto) 1.4 % Baso % (Auto) 0.7 % Neut # (Auto) 1.87 (1.4-6.5) K/uL Lymph # (Auto) 3.41 H (1.2-3.4) K/uL [place] # (Auto) 0.50 (0.24-0.82) K/uL Eos # (Auto) 0.08 (0-0.50) K/uL Baso # (Auto) 0.04 (0-0.2) K/uL Immature Gran # (Auto) 0.01 (0.00-0.02) K/uL PT 12.3 H (9.0-12.0) Seconds INR 1.2 H (0.9-1.1) Sodium 140 (136-145) mmol/L Potassium 3.7 (3.5-5.1) mmol/L Chloride 103 (98-107) mmol/L Carbon Dioxide 25 (21-32) mmol/L Anion Gap 12 H (3-11) BUN 11 (6-23) mg/dl Creatinine 0.87 (0.6-1.4) mg/dl Est Cr Clr Drug Dosing 100.8 ml/min Est GFR ( Amer) 108.0 ml/min Est GFR (Non-Af Amer) 93.2 ml/min BUN/Creatinine Ratio 12.6 (10-20) Glucose 91 (70-99(Fasting)) mg/dl Calcium 9.4 (8.5-10.1) mg/dl Magnesium 2.1 (1.7-2.4) mg/dl Total Bilirubin 0.7 (0.2-1.0) mg/dl AST 42 H (13-39) U/L ALT 37 (7-52) U/L Alkaline Phosphatase 67 (34-104) U/L Troponin I High Sens 9.6 (0-20) pg/ml Total Protein 7.8 (6.0-8.3) gm/dl Albumin 4.7 (3.4-5.0) gm/dl Globulin 3.1 (2.5-4.0) gm/dl Albumin/Globulin Ratio 1.5 (0.9-2) Salicylates (3.0-30) mg/dl Acetaminophen (10-30) ug/ml Ethyl Alcohol mg/dL (<10.0) mg/dl 07/03/22 07/03/22 Range/Units 20:02 20:02 WBC (4.8-10.8) K/ul RBC (4.63-6.08) M/uL Hgb (14.0-18.0) g/dl Hct (40.1-51.0) % MCV (80.0-100.0) fL MCH (25.0-34.0) pg MCHC (32.0-36.0) g/dL RDW Std Deviation (36.4-46.3) fL RDW Coeff of Eloy (11.5-14.5) % Plt Count (130-400) K/uL MPV (9.4-12.4) fL Immature Gran % (Auto) % Neut % (Auto) % Lymph % (Auto) % [place] % (Auto) % Eos % (Auto) % Baso % (Auto) % Neut # (Auto) (1.4-6.5) K/uL Lymph # (Auto) (1.2-3.4) K/uL [place] # (Auto) (0.24-0.82) K/uL Eos # (Auto) (0-0.50) K/uL Baso # (Auto) (0-0.2) K/uL Immature Gran # (Auto) (0.00-0.02) K/uL PT (9.0-12.0) Seconds INR (0.9-1.1) Sodium (136-145) mmol/L Potassium (3.5-5.1) mmol/L Chloride (98-107) mmol/L Carbon Dioxide (21-32) mmol/L Anion Gap (3-11) BUN (6-23) mg/dl Creatinine (0.6-1.4) mg/dl Est Cr Clr Drug Dosing ml/min Est GFR ( Amer) ml/min Est GFR (Non-Af Amer) ml/min BUN/Creatinine Ratio (10-20) Glucose (70-99(Fasting)) mg/dl Calcium (8.5-10.1) mg/dl Magnesium (1.7-2.4) mg/dl Total Bilirubin (0.2-1.0) mg/dl AST (13-39) U/L ALT (7-52) U/L Alkaline Phosphatase (34-104) U/L Troponin I High Sens (0-20) pg/ml Total Protein (6.0-8.3) gm/dl Albumin (3.4-5.0) gm/dl Globulin (2.5-4.0) gm/dl Albumin/Globulin Ratio (0.9-2) Salicylates < 3.0 L (3.0-30) mg/dl Acetaminophen < 3 L (10-30) ug/ml Ethyl Alcohol mg/dL 276.1 H (<10.0) mg/dl Administered Medications Discontinued Medications Sodium Chloride (Nss 1000ml) 1,000 mls @ 999 mls/hr IV .Q1H1M ARABELLA Stop: 07/03/22 21:15 Last Infusion: 07/03/22 21:18 Dose: 0 mls/hr Documented By: Admin: 07/03/22 20:19 Dose: 999 mls/hr Documented By: GISELL Sodium Chloride (Nss 1000ml) 1,000 mls @ 999 mls/hr IV .Q1H1M ONE Stop: 07/03/22 23:06 Last Admin: 07/03/22 22:30 Dose: 999 mls/hr Documented By: BRAVO Thiamine HCl 100 mg/ Syringe 10 mls @ 2 mls/min IV NOW STA Stop: 07/03/22 22:10 Last Admin: 07/03/22 23:07 Dose: 2 mls/min Documented By: GISELL Lorazepam (Lorazepam 2 Mg/1 Ml Vial) 1 mg IV NOW STA; Protocol Stop: 07/03/22 20:03 Last Admin: 07/03/22 20:19 Dose: 1 mg Documented By: GISELL Ondansetron HCl (Ondansetron Inj 2 Mg/Ml 2 Ml Vial) 4 mg IV NOW STA Stop: 07/03/22 20:03 Last Admin: 07/03/22 20:19 Dose: 4 mg Documented By: GISELL Discharge Plan Visit Data Chief Complaint: Mental Health Evaluation ED Provider: Lul Muñoz Discharge Problem: Alcoholic intoxication, Depression, Suicidal ideation Patient Disposition: Being Evaluated by Hospitalist Forms Stand Alone Forms: [facility], Suicide Prevention Resources Prescriptions Prescriptions: No Action omeprazole 20 mg Tablet,Delayed Release (Dr/Ec) 40 mg PO BID clonidine HCl 0.1 mg tablet 0.1 mg PO BID Qty: 0 0RF vitamin B complex Tablet Extended Release 1 tab PO BID lisinopril 10 mg Tablet 20 mg PO QAM Referrals Referrals: [facility],Medicine [Primary Care Provider] -
[2022-07-03 20:40] LABS: INR 1.2 (0.9-1.1); Prothrombin Time 12.3 Seconds (9.0-12.0)
[2022-07-03 20:47] LABS: Acetaminophen < 3 ug/ml (10-30); Salicylate < 3.0 mg/dl (3.0-30)
[2022-07-03 20:50] LABS: Albumin Globulin Ratio 1.5 (0.9-2); Albumin Level 4.7 gm/dl (3.4-5.0); BUN Creatinine Ratio 12.6 (10-20); Bilirubin,Total 0.7 mg/dl (0.2-1.0); Calcium 9.4 mg/dl (8.5-10.1); Creatinine Clr Calc Pharmacy 100.8 ml/min; Est GFR (Non-African American) 93.2 ml/min; Globulin 3.1 gm/dl (2.5-4.0); Magnesium 2.1 mg/dl (1.7-2.4); Potassium 3.7 mmol/L (3.5-5.1); Total Protein 7.8 gm/dl (6.0-8.3)
[2022-07-03 20:53] LABS: Troponin I High Sensitivity 9.6 pg/ml (0-20)
[2022-07-03 21:01] LABS: Hematocrit (blood only) 49.6 % (40.1-51.0); Hemoglobin 17.8 g/dl (14.0-18.0); Mean Corpuscular Hemoglobin 32.4 pg (25.0-34.0); Mean Corpuscular Hgb Conc 35.9 g/dL (32.0-36.0); Mean Corpuscular Volume 90.3 fL (80.0-100.0); Mean Platelet Volume 9.7 fL (9.4-12.4); Platelet Count 200 K/uL (130-400); RDW Coefficient of Variation 11.6 % (11.5-14.5); RDW Standard Deviation 38.5 fL (36.4-46.3); Red Blood Count 5.49 M/uL (4.63-6.08); White Blood Count 5.91 K/ul (4.8-10.8)
[2022-07-03] MEDS ORDERED: THIAMINE HCL 100 MG in SYRINGE 9 ML IV STA (22:06)
[2022-07-03] MEDS ORDERED: SODIUM CHLORIDE 0.9% 1000ML 1,000 ML IV ONE (22:06)
[2022-07-03 22:08] LABS: Basophils # (auto) 0.04 K/uL (0-0.2); Basophils % (auto) 0.7 %; Eosinophils # (auto) 0.08 K/uL (0-0.50); Eosinophils % (auto) 1.4 %; Immature Granulocytes # (auto) 0.01 K/uL (0.00-0.02); Immature Granulocytes % (auto) 0.2 %; Lymphocytes # (auto) 3.41 K/uL (1.2-3.4); Lymphocytes % (auto) 57.7 %; Monocytes % (auto) 8.5 %; Neutrophils # (auto) 1.87 K/uL (1.4-6.5); Neutrophils % (auto) 31.5 %
[2022-07-03] MEDS ORDERED: LORazepam 1 MG in SYRINGE 0.5 ML IV PRN (23:24)
[2022-07-04] MEDS ORDERED: GABAPENTIN 600 MG TAB PO STA (00:49)
--- NOTE | 2022-07-04 00:49 | History & Physical Report ---
Date of Service July 04, 2022 Assessment & Plan (1) Alcohol withdrawal: Plan: Alcohol withdrawal: Suicidality HTN, stable Ongoing tobacco abuse Med telemetry AWSS, DT precautions Facilitate home BP meds, may need dose titration Psych consult RE depression, suicidality nicotine patch as needed DVT prophylaxis. Lovenox subcu Full code Text document was generated using [employer] voice recognition software. It may contain grammatical or spelling errors. Kindly contact undersigned for clarification of any documentation item in question. History of Present Illness Chief Complaint: Suicidal ideations Primary Care Provider: [facility] History obtained from patient and records. Medical history significant for hypertension, mood disorder, GERD, ongoing tobacco/alcohol abuse. Recurrent admissions at [facility] for alcohol withdrawal. Last confinement was in April 2022. Patient called 911 last night because he was having suicidal ideations. Patient denies headache, chest pain, shortness of breath, abdominal pain complaints. No prior history of alcohol withdrawal seizures. Medical History as above Surgical History : None Family History : Alcoholism, heart disease Personal/Social history: 1/4 pack daily, alcohol abuse, currently unemployedA Allergies Allergy/AdvReac Type Severity Reaction Status Date / Time No Known Allergies Allergy Verified 04/20/22 14:43 Home Medications Medication Instructions Recorded Confirmed Type omeprazole 20 mg tablet,delayed 40 mg PO BID 03/16/20 07/03/22 History release clonidine HCl 0.1 mg tablet 0.1 mg PO BID #0 tabs 03/19/20 07/03/22 Rx vitamin B complex 1 tab PO BID 12/08/20 07/03/22 History lisinopril 10 mg tablet 20 mg PO QAM 03/02/22 07/03/22 History Past Med/Surg History Medical History Acute hyponatremia Alcohol abuse Alcohol abuse Alcohol withdrawal Alcohol withdrawal Alcohol withdrawal Anxiety Chest pain Depression DVT prophylaxis Dyslipidemia Elevated LFTs Elevated liver enzymes Essential tremor GERD (gastroesophageal reflux disease) Heartburn Hypertension Mood disorder Suicidal ideation Suicidal thoughts Surgical History No history of previous surgery Family History Father , age 70 from [place] Coronary heart disease Social History Smoking Status: Current every day smoker Tobacco Type: Cigarettes Cigarettes Per Day: 0.5 pack daily; Second Hand Exposure: No; Do You Dip or Chew Tobacco: No; Tobacco Cessation Education Requested by Patient: No Hx Alcohol Use: Yes Alcohol type: beer Alcohol Intake Frequency Comment: case of beer a day Hx Substance Use: No Preferred Language: Chinese Communication Ability: Effective [place] Clerk Required: No Beliefs That Will Affect Care: None marital status: Current Living Situation: Alone Current Living Situation Comment: pt states lives in large farmhouse where two brothers unrelated to him live Other Information That Helps Us Care for You: No Feels Safe at Home: Yes Safety Concerns: Feels Safe At This Time Assistive Devices: None Review of Systems Review of Systems: As per HPI, all other systems reviewed and negative Physical Exam Physical Exam: GENERAL: uncomfortable, tremulous, restless, alcoholic fetor, no respiratory distress SKIN: Normal color, warm HEENT: [place] palpebral conjunctivae, no ptosis, dry buccal mucosa NECK : Supple, no tenderness CHEST : CTA, no tenderness HEART : RRR, no obvious murmurs ABDOMEN: Some distention, nontender EXTREMITIES : No LE swelling/tenderness, no other conspicuous deformities noted NEUROLOGIC : Coherent, no facial asymmetry, tremulous, no other gross focality Results & Data Results & Data ([facility]) Vital Signs (Past 12 Hours) Vital Signs Temp Pulse Pulse Resp BP BP Pulse Ox 07/03/22 22:41 69 16 111/84 98 07/03/22 23:08 69 16 114/55 L 97 07/03/22 21:16 77 16 105/64 97 07/03/22 19:51 36.7 C 79 22 167/96 H 92 O2 Del Method O2 Flow Rate 07/03/22 22:41 Room Air 07/03/22 23:08 Nasal Cannula 3 07/03/22 21:16 Nasal Cannula 3 07/03/22 19:51 Room Air Laboratory Results Laboratory Results WBC 5.91 K/ul (4.8-10.8) 07/03/22 20:02 RBC 5.49 M/uL (4.63-6.08) 07/03/22 20:02 Hgb 17.8 g/dl (14.0-18.0) 07/03/22 20:02 Hct 49.6 % (40.1-51.0) 07/03/22 20: MCV 90.3 fL (80.0-100.0) 07/03/22 20: MCH 32.4 pg (25.0-34.0) 07/03/22 20: MCHC 35.9 g/dL (32.0-36.0) 07/03/22 20: RDW Std Deviation 38.5 fL (36.4-46.3) 07/03/22: RDW Coeff of Eloy 11.6 % (11.5-14.5) 07/03/22 20: Plt Count 200 K/uL (130-400) 07/03/22 20: MPV 9.7 fL (9.4-12.4) 07/03/22 20: Immature Gran % (Auto) 0.2 % 07/03/22: Neut % (Auto) 31.5 % 07/03/22 20: Lymph % (Auto) 57.7 % 07/03/22 20: [place] % (Auto) 8.5 % 07/03/22 20: Eos % (Auto) 1.4 % 07/03/22 20:02 Baso % (Auto) 0.7 % 07/03/22 20: Neut # (Auto) 1.87 K/uL (1.4-6.5) 07/03/22 20: Lymph # (Auto) 3.41 K/uL (1.2-3.4) H 07/03/22 20: [place] # (Auto) 0.50 K/uL (0.24-0.82) 07/03/22 20:02 Eos # (Auto) 0.08 K/uL (0-0.50) 07/03/22 20:02 Baso # (Auto) 0.04 K/uL (0-0.2) 07/03/22 20: Immature Gran # (Auto) 0.01 K/uL (0.00-0.02) 07/03/22 20: PT 12.3 Seconds (9.0-12.0) H 07/03/22 20:02 INR 1.2 (0.9-1.1) H 07/03/22 20:02 Sodium 140 mmol/L (136-145) 07/03/22 20:02 Potassium 3.7 mmol/L (3.5-5.1) 07/03/22 20:02 Chloride 103 mmol/L (98-107) 07/03/22 20:02 Carbon Dioxide 25 mmol/L (21-32) 07/03/22 20:02 Anion Gap 12 (3-11) H 07/03/22 20:02 BUN 11 mg/dl (6-23) 07/03/22 20:02 Creatinine 0.87 mg/dl (0.6-1.4) 07/03/22 20:02 Est Cr Clr Drug Dosing 100.8 ml/min 07/03/22 20:02 Est GFR ( Amer) 108.0 ml/min 07/03/22 20:02 Est GFR (Non-Af Amer) 93.2 ml/min 07/03/22 20:02 BUN/Creatinine Ratio 12.6 (10-20) 07/03/22 20:02 Glucose 91 mg/dl (70-99(Fasting)) 07/03/22 20:02 Calcium 9.4 mg/dl (8.5-10.1) 07/03/22 20:02 Magnesium 2.1 mg/dl (1.7-2.4) 07/03/22 20:02 Total Bilirubin 0.7 mg/dl (0.2-1.0) 07/03/22 20:02 AST 42 U/L (13-39) H 07/03/22 20:02 ALT 37 U/L (7-52) 07/03/22 20:02 Alkaline Phosphatase 67 U/L (34-104) 07/03/22 20:02 Troponin I High Sens 9.6 pg/ml (0-20) 07/03/22 20:02 Total Protein 7.8 gm/dl (6.0-8.3) 07/03/22 20:02 Albumin 4.7 gm/dl (3.4-5.0) 07/03/22 20:02 Globulin 3.1 gm/dl (2.5-4.0) 07/03/22 20:02 Albumin/Globulin Ratio 1.5 (0.9-2) 07/03/22 20:02 Salicylates < 3.0 mg/dl (3.0-30) L 07/03/22 20:02 Acetaminophen < 3 ug/ml (10-30) L 07/03/22 20:02 Ethyl Alcohol mg/dL 276.1 mg/dl (<10.0) H 07/03/22 20:02 SARS-CoV-2, RNA, NAAT NEGATIVE (NEGATIVE) 07/03/22 23:10 Diagnostic Findings EKG as per my interpretation : Rate 75, NSR, normal axis, no ischemia (1) Alcohol withdrawal Complication of substance-induced condition: uncomplicated Qualified Code(s): F10.230 - Alcohol dependence with withdrawal, uncomplicated
[2022-07-04] MEDS ORDERED: GABAPENTIN 1200MG ALCOHOL WITHDRAWAL LOAD PO STA (00:54)
[2022-07-04] MEDS ORDERED: LORazepam 2 MG in SYRINGE 1 ML IV PRN (00:54)
[2022-07-04] MEDS ORDERED: LORazepam 3 MG in SYRINGE 1.5 ML IV PRN (00:54)
[2022-07-04] MEDS ORDERED: PROMETHAZINE HCL 12.5 MG in SODIUM CHLORIDE 0.9% 50 ML IV PRN (00:54)
[2022-07-04] MEDS ORDERED: Ativan IV Alcohol Withdrawal--Active Protocol IV PRN (00:54)
[2022-07-04 01:03] LABS: Appearance Urine Clear (Clear); Bilirubin Urine Negative (Negative); Blood Urine Negative (Negative); Color Urine Yellow; Glucose Urine UA Negative (Negative); Ketones Urine Negative (Negative); Leukocyte Esterase Urine Negative (Negative); Nitrite Urine Negative (Negative); Protein Urine Negative (Negative); Specific Gravity Urine 1.016 (1.000-1.030); Urobilinogen Urine Negative (Negative); pH Urine 5.5 (4.5-7.5)
[2022-07-04] MEDS ORDERED: LACTATED RINGER'S 1,000 ML IV STA (01:07)
[2022-07-04 01:22] LABS: Amphetamines+Metham, Urine Neg (Neg); Barbiturates, Urine Neg (Neg); Benzodiazepine, Urine Neg (Neg); Cocaine, Urine Neg (Neg); MDMA (Ecstacy), Urine Neg (Neg); Methadone, Urine Neg (Neg); Opiate, Urine Neg (Neg); Phencyclidine, Urine Neg (Neg)
[2022-07-04] MEDS ORDERED: ACETAMINOPHEN 325 MG TAB PO PRN (02:21)
[2022-07-04 07:07] LABS: Basophils # (auto) 0.04 K/uL (0-0.2); Basophils % (auto) 0.7 %; Eosinophils # (auto) 0.07 K/uL (0-0.50); Eosinophils % (auto) 1.1 %; Hematocrit (blood only) 44.4 % (40.1-51.0); Hemoglobin 15.8 g/dl (14.0-18.0); Immature Granulocytes # (auto) 0.01 K/uL (0.00-0.02); Immature Granulocytes % (auto) 0.2 %; Lymphocytes # (auto) 2.25 K/uL (1.2-3.4); Lymphocytes % (auto) 36.9 %; Mean Corpuscular Hemoglobin 32.3 pg (25.0-34.0); Mean Corpuscular Hgb Conc 35.6 g/dL (32.0-36.0); Mean Corpuscular Volume 90.8 fL (80.0-100.0); Mean Platelet Volume 9.4 fL (9.4-12.4); Monocytes # (auto) 0.51 K/uL (0.24-0.82); Monocytes % (auto) 8.4 %; Neutrophils # (auto) 3.22 K/uL (1.4-6.5); Neutrophils % (auto) 52.7 %; Platelet Count 167 K/uL (130-400); RDW Coefficient of Variation 11.5 % (11.5-14.5); RDW Standard Deviation 38.2 fL (36.4-46.3); Red Blood Count 4.89 M/uL (4.63-6.08)
[2022-07-04 07:36] LABS: Bilirubin,Total 0.8 mg/dl (0.2-1.0); Calcium 8.4 mg/dl (8.5-10.1); Potassium 3.5 mmol/L (3.5-5.1)
[2022-07-04 07:42] LABS: Albumin Globulin Ratio 1.5 (0.9-2); BUN Creatinine Ratio 11.5 (10-20); Creatinine Clr Calc Pharmacy 112.2 ml/min; Est GFR (African American) 112.9 ml/min; Est GFR (Non-African American) 97.4 ml/min; Globulin 2.6 gm/dl (2.5-4.0); Total Protein 6.6 gm/dl (6.0-8.3)
[2022-07-04] MEDS: cloNIDine HCL 0.1 MG TAB PO SCH ×2 (08:50→20:25)
[2022-07-04] MEDS: FOLIC ACID 1 MG TAB PO SCH (08:50)
[2022-07-04] MEDS: THIAMINE HCL 100 MG TAB PO SCH (08:50)
[2022-07-04] MEDS: GABAPENTIN 600 MG TAB PO SCH ×3 (08:50→21:31)
[2022-07-04] MEDS: PANTOprazole 40 MG TAB PO SCH ×2 (08:50→20:23)
[2022-07-04] MEDS: VITAMIN B COMPLEX TAB PO SCH ×2 (08:50→20:24)
[2022-07-04] MEDS: lisinopril 20 MG TAB PO SCH (08:51)
[2022-07-04] MEDS: ENOXAPARIN INJ 40 MG/0.4 ML SYR SQ SCH (08:52)
[2022-07-04] MEDS ORDERED: ENOXAPARIN INJ 40 MG/0.4 ML SYR SQ SCH (09:00)
[2022-07-04] MEDS: LORazepam 1 MG in SYRINGE 0.5 ML IV PRN ×2 (09:06→23:24)
[2022-07-04] MEDS ORDERED: LORazepam 2 MG in SYRINGE 1 ML IV ONE (11:00)
--- NOTE | 2022-07-04 12:59 | Communication Note ---
Date of Service: July 04, 2022 received consult request for Shadi Davalos, well known to me from multiple contacts, makes suicidal statements to crisis while intoxicated and later ret racts. He did have a suicidal risk assessment in the ED and denied SI at that time but was placed on suicide precautions overnight. Case reviewed with Dr. Rayo as he is continuing to deny SI. Before she d/c 1-on-1 wanted to confirm no 302 warrant active. None mentioned in ED note or on paper chart. She will d/c formal consult at this time unless a new issue arises.
[2022-07-04] MEDS ORDERED: NICOTINE 21 MG/24 HR TDSY TD PRN (14:24)
--- NOTE | 2022-07-04 14:26 | Hospitalist Progress Note ---
Date of Service July 04, 2022 Assessment & Plan (1) Alcohol withdrawal: Plan: Long history of alcohol abuse, currently in withdrawal. Patient is tremulous and will receive additional IV Ativan at this time. Continues on gabapentin protocol with as needed Ativan as needed. (2) Suicidal ideation: Plan: There was a question of suicidal ideations yesterday however patient is deemed low risk by psychiatry. Patient is not having suicidal ideations at this time and there is no 302 on the chart. (3) Tobacco use: Plan: Smoking cessation advised, nicotine replacement as needed. (4) Hypertension: Plan: Blood pressure is at goal, continue chronic home medications. (5) DVT prophylaxis: Plan: Lovenox Full code Disposition to home versus rehab once withdrawal has stabilized [facility] Admission and Anticipated Discharge Date Admission Date: July 04, 2022 Subjective 61-year-old man presents for alcohol withdrawal Last drink was yesterday morning Patient is overtly anxious and tremulous He is continually thrusting his pelvis and appears to be doing this involuntarily He appears agitated He is normal mental status and denies any pain nausea or other symptoms at this time. He confirmed with me he has no suicidal ideations and does not think he had them yesterday either. Review of Systems Review of Systems: All systems reviewed negative except as indicated above. Physical Exam Physical Exam: CONSTITUTIONAL: WNWD, vitals as above, generally well- appearing, NAD EYES: normal conjunctivae, no scleral icterus, ENT: external ear and nose normal, MMM NECK: trachea midline RESPIRATORY: clear to auscultation bilaterally, no crackles, rales or wheezes, normal respiratory effort CARDIOVASCULAR: regular rate and rhythm, S1 and 2 heard without murmurs, gallops or rubs, no JVD, no peripheral edema CHEST: inspection of chest was normal GASTROINTESTINAL: soft, nontender, ND, no guarding MUSCULOSKELETAL: strength 5/5 throughout, head is normocephalic and atraumatic, SKIN: warm and dry, appears flushed and borderline diaphoretic. NEUROLOGIC: CN 2-12 grossly intact, no sensory deficit, normal cognition, appears anxious/agitated, normal speech, +tremor PSYCHIATRIC: alert cooperative and oriented to person, place and time. Results & Data Results & Data ([facility]) Vital Signs (Past 12 Hours) Vital Signs Temp Pulse Pulse Resp BP Pulse Ox Pulse Ox 07/04/22 07:38 37.0 C 83 16 137/72 92 07/04/22 07:15 75 07/04/22 02:26 70 07/04/22 02:21 36.5 C 69 18 164/85 H 94 07/04/22 02:21 94 O2 Del Method O2 Del Method 07/04/22 07:38 Room Air 07/04/22 07:15 07/04/22 02:26 07/04/22 02:21 Room Air 07/04/22 02:21 Room Air Laboratory Results Short CBC 07/03/22 07/04/22 Range/Units 20:02 06:12 WBC 5.91 6.10 (4.8-10.8) K/ul Hgb 17.8 15.8 (14.0-18.0) g/dl Hct 49.6 44.4 (40.1-51.0) % Plt Count 200 167 (130-400) K/uL BMP 07/03/22 07/04/22 20:02 06:12 Sodium 140 139 Potassium 3.7 3.5 Chloride 103 104 Carbon Dioxide 25 27 BUN 11 9 Creatinine 0.87 0.78 Glucose 91 82 Calcium 9.4 8.4 L Liver Function 07/03/22 07/04/22 Range/Units 20:02 06:12 Total Bilirubin 0.7 0.8 (0.2-1.0) mg/dl AST 42 H 33 (13-39) U/L ALT 37 31 (7-52) U/L Alkaline Phosphatase 67 56 (34-104) U/L Albumin 4.7 4.0 (3.4-5.0) gm/dl Urine 07/04/22 Range/Units 00:44 Urine Color Yellow Urine Appearance Clear (Clear) Urine pH 5.5 (4.5-7.5) Ur Specific [place] 1.016 (1.000-1.030) Urine Protein Negative (Negative) Urine Glucose (UA) Negative (Negative) Medications Administered Current Inpatient Medications Acetaminophen (Acetaminophen 325 Mg Tab) 650 mg PO Q4H PRN PRN Reason: Pain or Fever Stop: 08/03/22 02:20 Clonidine HCl (Clonidine Hcl 0.1 Mg Tab) 0.1 mg PO BID ARABELLA Stop: 08/03/22 08:59 Last Admin: 07/04/22 08:50 Dose: 0.1 mg Enoxaparin Sodium (Enoxaparin Inj 40 Mg/0.4 Ml Syr) 40 mg SQ QAM [facility] Stop: 08/03/22 08:59 Last Admin: 07/04/22 08:52 Dose: 40 mg Folic Acid (Folic Acid 1 Mg Tab) 1 mg PO QAM [facility] Stop: 08/03/22 08:59 Last Admin: 07/04/22 08:50 Dose: 1 mg Gabapentin (Gabapentin 600 Mg Tab) 600 mg PO Q24H ARABELLA Stop: 07/07/22 14:01 Gabapentin (Gabapentin 600 Mg Tab) 600 mg PO Q8H ARABELLA Stop: 07/05/22 14:01 Gabapentin (Gabapentin 600 Mg Tab) 600 mg PO Q12H [facility] Stop: 07/06/22 14:01 Promethazine HCl 12.5 mg/ (Sodium Chloride) 50.5 mls @ 202 mls/hr IV Q6H PRN PRN Reason: Nausea And Vomiting Stop: 08/03/22 00:53 Lorazepam 1 mg/ Syringe 1 mls @ 2 mls/min IV UD PRN; Protocol PRN Reason: EtOH Withdrawal AWSS Score 6,7 Stop: 08/03/22 00:53 Last Admin: 07/04/22 09:06 Dose: 2 mls/min Lisinopril (Lisinopril 20 Mg Tab) 20 mg PO QAM [facility] Stop: 08/03/22 08:59 Last Admin: 07/04/22 08:51 Dose: 20 mg Pantoprazole Sodium (Pantoprazole 40 Mg Tab) 40 mg PO BID [facility] Stop: 08/03/22 08:59 Last Admin: 07/04/22 08:50 Dose: 40 mg Thiamine HCl (Thiamine Hcl 100 Mg Tab) 100 mg PO QAM [facility] Stop: 08/03/22 08:59 Last Admin: 07/04/22 08:50 Dose: 100 mg Vitamin B Complex (Vitamin B Complex Tab) 1 tab PO BID [facility] Stop: 08/03/22 08:59 Last Admin: 07/04/22 08:50 Dose: 1 tab (1) Alcohol withdrawal Complication of substance-induced condition: uncomplicated Qualified Code(s): F10.230 - Alcohol dependence with withdrawal, uncomplicated
--- NOTE | 2022-07-04 19:38 | Electrocardiogram Report ---
Test Reason : Blood Pressure : / mmHG Vent. Rate : 075 BPM Atrial Rate : 075 BPM P-R Int : 162 ms QRS Dur : 088 ms QT Int : 376 ms P-R-T Axes : 063 047 027 degrees QTc Int : 419 ms Normal sinus rhythm Normal ECG When compared with ECG of 20-APR-2022 11:02, No significant change was found Confirmed by Anupam Toure ([id number]) on 07/04/2022 7:38:07 PM Referred By: REFERRED SELF Confirmed By:Anupam Toure
[2022-07-05] MEDS: GABAPENTIN 600 MG TAB PO SCH ×2 (05:30→14:00)
[2022-07-05] MEDS: VITAMIN B COMPLEX TAB PO SCH (07:46)
[2022-07-05] MEDS: cloNIDine HCL 0.1 MG TAB PO SCH (07:46)
[2022-07-05] MEDS: FOLIC ACID 1 MG TAB PO SCH (07:46)
[2022-07-05] MEDS: PANTOprazole 40 MG TAB PO SCH (07:46)
[2022-07-05] MEDS: lisinopril 20 MG TAB PO SCH (07:46)
[2022-07-05] MEDS: ENOXAPARIN INJ 40 MG/0.4 ML SYR SQ SCH (07:46)
[2022-07-05] MEDS: THIAMINE HCL 100 MG TAB PO SCH (07:46)
--- NOTE | 2022-07-05 11:55 | Discharge Summary ---
Discharge Summary Date of Service July 05, 2022 Notes For Next Care Provider Rehab is needed vs ongoing programs to help with alcohol cessation Patient needs assistance with counseling for uncontrolled anxiety Medication Changes From Visit Chlordiazepoxide 25mg PO q12h PRN symptoms NicoDerm CQ 21 mg patch daily Thiamine 100 mg p.o. every morning Admission HPI Per Admitting Provider History obtained from patient and records. Medical history significant for hypertension, mood disorder, GERD, ongoing tobacco/alcohol abuse. Recurrent admissions at [facility] for alcohol withdrawal. Last confinement was in April 2022. Patient called 911 last night because he was having suicidal ideations. Patient denies headache, chest pain, shortness of breath, abdominal pain complaints. No prior history of alcohol withdrawal seizures. Medical History as above Surgical History : None Family History : Alcoholism, heart disease Personal/Social history: 1/4 pack daily, alcohol abuse, currently unemployedA Admission Exam Per Admitting Provider GENERAL: uncomfortable, tremulous, restless, alcoholic fetor, no respiratory distress SKIN: Normal color, warm HEENT: [place] palpebral conjunctivae, no ptosis, dry buccal mucosa NECK : Supple, no tenderness CHEST : CTA, no tenderness HEART : RRR, no obvious murmurs ABDOMEN: Some distention, nontender EXTREMITIES : No LE swelling/tenderness, no other conspicuous deformities noted NEUROLOGIC : Coherent, no facial asymmetry, tremulous, no other gross focality Principal Dx & Hospital Course #1 = Principal Diagnosis (1) Alcohol withdrawal: Long history of alcohol abuse, experiencing withdrawal symptoms up front. Intravenous lorazepam was given for the first 24-36 hours. Continues on gabape ntin protocol with as needed Ativan as needed. Patient was stable prior to discharge. (2) Suicidal ideation: There was a question of suicidal ideations on arrival, however, patient was deemed low risk by psychiatry. Patient is not having suicidal ideations at this time and there is no 302 on the chart. The patient is well known by the mental health provider here. (3) Tobacco use: Smoking cessation advised, nicotine replacement as needed. (4) Hypertension: Blood pressure is at goal, continue chronic home medications. Discharge Exam CONSTITUTIONAL: WNWD, vitals as above, generally well-appearing, NAD EYES: normal conjunctivae, no scleral icterus, ENT: external ear and nose normal, MMM NECK: trachea midline RESPIRATORY: clear to auscultation bilaterally, no crackles, rales or wheezes, normal respiratory effort CARDIOVASCULAR: regular rate and rhythm, S1 and 2 heard without murmurs, gallops or rubs, no JVD, no peripheral edema CHEST: inspection of chest was normal GASTROINTESTINAL: soft, nontender, ND, no guarding MUSCULOSKELETAL: strength 5/5 throughout, head is normocephalic and atraumatic, SKIN: warm and dry, appears flushed and borderline diaphoretic. NEUROLOGIC: CN 2-12 grossly intact, no sensory deficit, normal cognition, appears anxious/agitated, normal speech, +tremor PSYCHIATRIC: alert cooperative and oriented to person, place and time. Updated Medication List Medication Instructions Recorded Confirmed Type omeprazole 20 mg tablet,delayed 40 mg PO BID 03/16/20 07/03/22 History release clonidine HCl 0.1 mg tablet 0.1 mg PO BID #0 tabs 03/19/20 07/03/22 Rx vitamin B complex 1 tab PO BID 12/08/20 07/03/22 History lisinopril 10 mg tablet 20 mg PO QAM 03/02/22 07/03/22 History chlordiazepoxide HCl 25 mg capsule 25 mg PO Q12H PRN alcohol 07/05/22 Rx withdrawal/severe anxiety #10 caps nicotine 21 mg/24 hr daily 21 mg transdermal QAM #14 ea 07/05/22 Rx transdermal patch (Nicoderm CQ) thiamine HCl (vitamin B1) 100 mg 100 mg PO QAM #30 tabs 07/05/22 Rx tablet Hospital Stay Data Consultations 07/03/22 23:25 ED Decision to Admit Stat Pending Results Patient Have Any Pending Studies at Discharge: No Discharge Instructions Given to Patient (Per Discharging Provider) Please take all medications as instructed on discharge list below. You are being given a drug called Librium to take for any severe alcohol cravings. This medication is to help you ABSTAIN FROM DRINKING. You should not use this drug in combination with alcohol as it may decrease your ability to breathe. It is highly recommended that you see a counselor regularly to help you with your underlying anxiety. It is also recommended to try out various alcohol cessation programs to help you quit and stay quit long-term. Please never drive while under the influence. A one week primary care phsyician follow-up since discharge is recommended to help you get connected with resources in your area, and to follow-up on how you are doing since returning home. It was a pleasure taking care of you! Please call if you have any questions or problems. You can reach a [facility] hospitalist on duty at [facility] 24 hours a day by calling [phone]. Take care of yourself. Celina Rayo, [facility]ist Total Time Total Time Spent Total Time Spent (In Minutes): 60
[2022-07-06] MEDS ORDERED: GABAPENTIN 600 MG TAB PO SCH (02:00)
[2022-07-07] MEDS ORDERED: GABAPENTIN 600 MG TAB PO SCH (14:00)
== END 2022-07-05 14:06 | disposition home or self-care (01) | DRG 897 ==
LOC: ED 19:40 → 2N 07-04 00:51

== ENCOUNTER 2022-09-17 14:31 | Inpatient (IN) ==
--- NOTE | 2022-09-17 15:07 | Emergency Department Note ---
Impression & Plan Alcoholic intoxication, Hypertension, Depression, Alcohol withdrawal ED Provider Note NAME: ROBI WREN AGE: 61 SEX: M : 1960 ARRIVES VIA: Ambulance INFORMANT: Patient ED PROVIDER(S): Adiel Harris DO CHIEF COMPLAINT: depression HPI: Patient is a 61-year-old male with a past medical history of alcohol abuse, suicidal ideations, alcohol withdrawal, depression and tobacco abuse who presents to the ER as he is feeling depressed. He notes it is difficult for him to express how he is truly feeling. He denies any suicidal or homicidal ideations. No auditory visual hallucinations. He notes he has been abusing alcohol for years and recently over the past several weeks he has been drinking a 30 pack of [place] a day. He notes today he is only had about 10-15 beers. He denies any headache or change in vision. No chest pain or shortness of b reath. No nausea,vomiting, or diarrhea. No dysuria, urgency, or frequency. No other exacerbating or remitting factors. At this point he does not want to talk any further. ROS: See above HPI for pertinent positives & negatives. A total of 10 systems reviewed and were otherwise negative. PAST MEDICAL HISTORY:See Below PAST SURGICAL HISTORY:See Below FAMILY HISTORY:See Below SOCIAL HISTORY:See Below HOME MEDICATIONS:See Below ALLERGIES:See Below VITALS:See Below PHYSICAL EXAMINATION: GENERAL: Sitting up in bed, alert, smell of alcohol on breath, disheveled EYE EXAM: normal conjunctiva. PERRL and EOM's grossly intact. OROPHARYNX: mucous membranes are moist LUNGS: Clear to auscultation. Normal chest wall mechanics HEART: no murmurs, S1 normal and S2 normal ABDOMEN: abdomen soft, non-tender, normo-active bowel sounds, no masses, no rebound or guarding. BACK: Back is symmetrical on inspection and there is no deformity, no midline tenderness, no CVA tenderness. SKIN: no rashes and no bruising UPPER EXTREMITIES: upper extremities are grossly normal. LOWER EXTREMITIES: No pitting edema. NEURO EXAM: Normal sensorium, cranial nerves II-XII grossly intact, normal speech, no gross weakness of arms, no gross weakness of legs. PSYCH: Denies any suicidal homicidal ideations. No auditory visual hallucinations. MEDICAL DECISION MAKING: Patient is a 61-year-old male notes that he wants to go to rehab. He came in today as he does not feel safe at home. IV was established blood work was obtained. Labs show no significant leukocytosis. Hemoglobin of 18 which I favor secondary to dehydration. Sodium of 128 again likely secondary to alcohol intake. T bili at 1.2. LFTs was unremarkable. Lipase at 100. Alcohol was 275. COVID was negative. He was given Ativan due to elevated blood pressure and feeling very jittery. He never admitted to any suicidal homicidal ideations but did note that he felt unsafe at home. Patient was evaluated by Cassie psychiatric certified caregiver. Discussed with the hospitalist for further evaluation due to history, extensive drinking and withdrawal. Triage Nursing notes reviewed. Limited review of prior medical records performed Vital Signs: reviewed and remarkable for HTN Differential diagnosis: Differential diagnosis includes etiologies such as infection, hypoglycemia, electrolyte abnormalities, cardiac sources, intracerebral event, trauma, toxicologic, neurologic, as well as others were entertained. ER treatment provided: See below Diagnostics interpreted by me: ECG: none Laboratory studies: As stated above and show below. Imaging studies: See below Consultation(s): Discussed with [facility] as described above Annalee Morris Procedures: none Critical Care: None Past Med/Surg History Medical History (Updated 09/17/22 @ 21:33 by Adiel Harris DO) Acute hyponatremia Alcohol abuse Alcohol withdrawal Anxiety Chest pain Depression DVT prophylaxis Dyslipidemia Elevated LFTs Essential tremor GERD (gastroesophageal reflux disease) Heartburn Hypertension Hypertension Mood disorder Suicidal ideation Suicidal thoughts Surgical History No history of previous surgery Family History Father , age 70 from [place] Coronary heart disease Social History Smoking Status: Current every day smoker Tobacco Type: Smokeless Tobacco (Dip or Chew) Cigarettes Per Day: 0.5 pack daily; Second Hand Exposure: No; Hx Alcohol Use: Yes Alcohol type: beer Alcohol Intake Frequency Comment: case of beer a day Hx Substance Use: No Preferred Language: Puerto Rican Communication Ability: Effective Reproduction Artist Required: No Beliefs That Will Affect Care: None marital status: Current Living Situation: Alone Current Living Situation Comment: pt states lives in large farmhouse where two brothers unrelated to him live Feels Safe at Home: No Is there a partner from a previous relationship who is making you feel unsafe now?: No Assistive Devices: None Allergies Allergies Allergy/AdvReac Type Severity Reaction Status Date / Time No Known Allergies Allergy Verified 04/20/22 14:43 Home Meds Home Medications Medication Instructions Recorded Confirmed omeprazole 20 mg tablet,delayed 20 mg PO DAILY 03/16/20 09/17/22 release vitamin B complex 1 tab PO BID 12/08/20 09/17/22 lisinopril 10 mg tablet 10 mg PO DAILY 09/17/22 09/17/22 Previous Rx's Medication Instructions Recorded clonidine HCl 0.1 mg tablet 0.1 mg PO BID #0 tabs 03/19/20 Results & Data (ED) Vital Signs Vital Signs - 24 hr 09/17/22 14:40 09/17/22 14:40 09/17/22 14:40 Temperature 36.5 C 36.5 C Temperature Source Oral Oral Pulse Rate 84 Pulse Rate [Apical] 84 Pulse Rhythm Regular Pulse Rhythm [Apical] Regular Pulse Strength Normal Pulse Strength [Apical] Normal Respiratory Rate 20 20 Respiratory Effort / Characteristics Non-Labored Non-Labored Respiratory Depth Normal Normal Respiratory Pattern Regular Regular Blood Pressure 153/71 H Blood Pressure [Right Arm] 153/71 H Blood Pressure Mean 98 Blood Pressure Mean [Right Arm] 98 Blood Pressure Position [Right Arm] Sitting Pulse Oximetry 94 94 Oxygen Delivery Method Room Air Room Air Room Air Sepsis Recent Fever Within 48 Hours No Sepsis New/Unexplained Change in Mental Status No Sepsis Action Taken by Nursing No Action Required 09/17/22 17:00 09/17/22 16:18 09/17/22 18:59 Temperature 37 C 36.5 C Temperature Source Oral Oral Pulse Rate Pulse Rate [Apical] 97 H 81 98 H Pulse Rhythm Pulse Rhythm [Apical] Regular Regular Pulse Strength Pulse Strength [Apical] Normal Normal Respiratory Rate 20 18 20 Respiratory Effort / Characteristics Non-Labored Non-Labored Respiratory Depth Normal Normal Respiratory Pattern Blood Pressure Blood Pressure [Right Arm] 148/80 H 125/83 152/90 H Blood Pressure Mean Blood Pressure Mean [Right Arm] 102 97 110 Blood Pressure Position [Right Arm] Pulse Oximetry 94 92 93 Oxygen Delivery Method Room Air Room Air Room Air Sepsis Recent Fever Within 48 Hours Sepsis New/Unexplained Change in Mental Status Sepsis Action Taken by Nursing Laboratory Data Result diagrams: 09/17/22 15:51 09/17/22 15:51 Lab Results 09/17/22 09/17/22 09/17/22 Range/Units 14:48 15:51 15:51 WBC (4.8-10.8) K/ul RBC (4.63-6.08) M/uL Hgb (14.0-18.0) g/dl Hct (40.1-51.0) % MCV (80.0-100.0) fL MCH (25.0-34.0) pg MCHC (32.0-36.0) g/dL RDW Std Deviation (36.4-46.3) fL RDW Coeff of [place]oy (11.5-14.5) % Plt Count (130-400) K/uL MPV (9.4-12.4) fL Immature Gran % (Auto) % Neut % (Auto) % Lymph % (Auto) % Camp % (Auto) % Eos % (Auto) % Baso % (Auto) % Neut # (Auto) (1.4-6.5) K/uL Lymph # (Auto) (1.2-3.4) K/uL [place] # (Auto) (0.24-0.82) K/uL Eos # (Auto) (0-0.50) K/uL Baso # (Auto) (0-0.2) K/uL Immature Gran # (Auto) (0.00-0.02) K/uL Sodium 128 L (136-145) mmol/L Potassium 4.4 (3.5-5.1) mmol/L Chloride 94 L (98-107) mmol/L Carbon Dioxide 21 (21-32) mmol/L Anion Gap 13 H (3-11) BUN 17 (6-23) mg/dl Creatinine 0.97 (0.6-1.4) mg/dl Est Cr Clr Drug Dosing 90.3 ml/min Est GFR ( Amer) 97.3 ml/min Est GFR (Non-Af Amer) 83.9 ml/min BUN/Creatinine Ratio 17.5 (10-20) Glucose 96 (70-99(Fasting)) mg/dl Calcium 8.9 (8.5-10.1) mg/dl Phosphorus (2.5-4.9) mg/dl Magnesium (1.7-2.4) mg/dl Total Bilirubin 1.2 H (0.2-1.0) mg/dl AST 50 H (13-39) U/L ALT 41 (7-52) U/L Alkaline Phosphatase 55 (34-104) U/L Total Protein 7.9 (6.0-8.3) gm/dl Albumin 4.9 (3.4-5.0) gm/dl Globulin 3.0 (2.5-4.0) gm/dl Albumin/Globulin Ratio 1.6 (0.9-2) Lipase 112 H (11-82) U/L Ethyl Alcohol mg/dL 275.9 H (<10.0) mg/dl SARS-CoV-2, RNA, NAAT NEGATIVE (NEGATIVE) 09/17/22 09/17/22 Range/Units 15:51 15:51 WBC 5.56 (4.8-10.8) K/ul RBC 5.47 (4.63-6.08) M/uL Hgb 18.2 H (14.0-18.0) g/dl Hct 48.3 (40.1-51.0) % MCV 88.3 (80.0-100.0) fL MCH 33.3 (25.0-34.0) pg MCHC 37.7 H (32.0-36.0) g/dL RDW Std Deviation 37.8 (36.4-46.3) fL RDW Coeff of [place]oy 11.7 (11.5-14.5) % Plt Count 160 (130-400) K/uL MPV 9.6 (9.4-12.4) fL Immature Gran % (Auto) 0.4 % Neut % (Auto) 51.6 % Lymph % (Auto) 37.2 % Camp % (Auto) 9.4 % Eos % (Auto) 0.7 % Baso % (Auto) 0.7 % Neut # (Auto) 2.87 (1.4-6.5) K/uL Lymph # (Auto) 2.07 (1.2-3.4) K/uL [place] # (Auto) 0.52 (0.24-0.82) K/uL Eos # (Auto) 0.04 (0-0.50) K/uL Baso # (Auto) 0.04 (0-0.2) K/uL Immature Gran # (Auto) 0.02 (0.00-0.02) K/uL Sodium (136-145) mmol/L Potassium (3.5-5.1) mmol/L Chloride (98-107) mmol/L Carbon Dioxide (21-32) mmol/L Anion Gap (3-11) BUN (6-23) mg/dl Creatinine (0.6-1.4) mg/dl Est Cr Clr Drug Dosing ml/min Est GFR ( Amer) ml/min Est GFR (Non-Af Amer) ml/min BUN/Creatinine Ratio (10-20) Glucose (70-99(Fasting)) mg/dl Calcium (8.5-10.1) mg/dl Phosphorus 3.7 (2.5-4.9) mg/dl Magnesium 2.2 (1.7-2.4) mg/dl Total Bilirubin (0.2-1.0) mg/dl AST (13-39) U/L ALT (7-52) U/L Alkaline Phosphatase (34-104) U/L Total Protein (6.0-8.3) gm/dl Albumin (3.4-5.0) gm/dl Globulin (2.5-4.0) gm/dl Albumin/Globulin Ratio (0.9-2) Lipase (11-82) U/L Ethyl Alcohol mg/dL (<10.0) mg/dl SARS-CoV-2, RNA, NAAT (NEGATIVE) Administered Medications Clonidine HCl (Clonidine Hcl 0.1 Mg Tab) 0.1 mg PO BID ARABELLA Stop: 10/17/22 20:59 Last Admin: 09/17/22 21:24 Dose: 0.1 mg Documented By: LL Folic Acid (Folic Acid 1 Mg Tab) 1 mg PO QAM ARABELLA Stop: 10/17/22 20:47 Last Admin: 09/17/22 21:23 Dose: 1 mg Documented By: LL Multivitamins 10 ml/ Thiamine HCl 100 mg/ Folic Acid 1 mg/Sodium Chloride 1,011.2 mls @ 1,011.2 mls/hr IV .Q1H ONE Stop: 09/17/22 21:29 Last Admin: 09/17/22 21:22 Dose: 1,011.2 mls/hr Documented By: BRANDEE Lorazepam 1 mg/ Syringe 1 mls @ 2 mls/min IV UD PRN; Protocol PRN Reason: EtOH Withdrawal AWSS Score 6,7 Stop: 10/17/22 20:47 Last Admin: 09/17/22 21:23 Dose: 2 mls/min Documented By: BRANDEE Nicotine (Nicotine 14 Mg/24 Hr Patch) 14 [facility] Stop: 10/17/22 20:49 Last Admin: 09/17/22 21:24 Dose: 14 mg Documented By: BRANDEE Ondansetron HCl (Ondansetron Inj 2 Mg/Ml 2 Ml Vial) 4 mg IV Q6H PRN PRN Reason: Nausea Stop: 10/17/22 20:47 Last Admin: 09/17/22 21:22 Dose: 4 mg Documented By: BRANDEE Thiamine HCl (Thiamine Hcl 100 Mg Tab) 100 mg PO QAM [facility] Stop: 10/17/22 20:47 Last Admin: 09/17/22 21:24 Dose: 100 mg Documented By: BRANDEE Discontinued Medications Gabapentin (Gabapentin 600 Mg Tab) 1,200 mg PO NOW ONE Stop: 09/17/22 20:49 Last Admin: 09/17/22 21:23 Dose: 1,200 mg Documented By: BRANDEE Lorazepam (Lorazepam 1 Mg/1 Ml Syr) 1 mg IV NOW STA; Protocol Stop: 09/17/22 16:20 Last Admin: 09/17/22 16:58 Dose: 1 mg Documented By: SUHA Lorazepam (Lorazepam 1 Mg/1 Ml Syr) 2 mg IV NOW STA; Protocol Stop: 09/17/22 18:42 Last Admin: 09/17/22 18:52 Dose: 2 mg Documented By: SUHA Discharge Plan Visit Data Chief Complaint: Alcohol Intoxication Stated Complaint: [facility] ED Provider: Adiel Harris Discharge Problem: Alcoholic intoxication, Hypertension, Depression, Alcohol withdrawal Patient Disposition: Admitted As Inpatient Discharge Instructions Interventions: ED Discharge Assessment Last Done: 09/17/22 20:32
[2022-09-17] MEDS ORDERED: LORazepam 2 MG/1 ML VIAL IV STA ×2 (16:19→18:41)
[2022-09-17 16:26] LABS: Basophils # (auto) 0.04 K/uL (0-0.2); Basophils % (auto) 0.7 %; Eosinophils # (auto) 0.04 K/uL (0-0.50); Eosinophils % (auto) 0.7 %; Hematocrit (blood only) 48.3 % (40.1-51.0); Hemoglobin 18.2 g/dl (14.0-18.0); Immature Granulocytes # (auto) 0.02 K/uL (0.00-0.02); Immature Granulocytes % (auto) 0.4 %; Lymphocytes # (auto) 2.07 K/uL (1.2-3.4); Lymphocytes % (auto) 37.2 %; Mean Corpuscular Hemoglobin 33.3 pg (25.0-34.0); Mean Corpuscular Hgb Conc 37.7 g/dL (32.0-36.0); Mean Corpuscular Volume 88.3 fL (80.0-100.0); Mean Platelet Volume 9.6 fL (9.4-12.4); Monocytes # (auto) 0.52 K/uL (0.24-0.82); Monocytes % (auto) 9.4 %; Neutrophils # (auto) 2.87 K/uL (1.4-6.5); Neutrophils % (auto) 51.6 %; Platelet Count 160 K/uL (130-400); RDW Coefficient of Variation 11.7 % (11.5-14.5); RDW Standard Deviation 37.8 fL (36.4-46.3); Red Blood Count 5.47 M/uL (4.63-6.08); White Blood Count 5.56 K/ul (4.8-10.8)
[2022-09-17 16:54] LABS: Albumin Globulin Ratio 1.6 (0.9-2); Albumin Level 4.9 gm/dl (3.4-5.0); BUN Creatinine Ratio 17.5 (10-20); Bilirubin,Total 1.2 mg/dl (0.2-1.0); Calcium 8.9 mg/dl (8.5-10.1); Creatinine Clr Calc Pharmacy 90.3 ml/min; Est GFR (African American) 97.3 ml/min; Est GFR (Non-African American) 83.9 ml/min; Potassium 4.4 mmol/L (3.5-5.1); Total Protein 7.9 gm/dl (6.0-8.3)
[2022-09-17 19:17] LABS: Magnesium 2.2 mg/dl (1.7-2.4); Phosphorus 3.7 mg/dl (2.5-4.9)
--- NOTE | 2022-09-17 19:44 | History & Physical Report ---
Date of Service September 17, 2022 Assessment & Plan (1) Alcohol withdrawal: Plan: Patient is 61 y/o M with PMH HTN, alcohol abuse, depression, essential tremor, tobacco use presented to ER with c/o alcohol withdrawal and alcohol detox request. History multiple alcohol rehab stays in past. Denies history of DTs, seizures Drinks 30 beers daily In ER ETOH level: 275. Given Ativan 3mg IV total Start banana bag Alcohol withdrawal protocol with gabapentin Folic acid, thiamine, multivitamin daily Does not want alcohol rehab CBC, CMP, magnesium, phosphorus in a.m. (2) Hyponatremia: Plan: Na: 128 Getting banana bag. Repeat BMP tonight (3) Depression: Plan: Denies suicidal ideations currently Not on current medication per patient's preference (4) Hypertension: Plan: Continue lisinopril (5) Tobacco use: Plan: Smoking cessation encouraged Nicotine patch DVT Prophylaxis SCDs Full Code as per discussion with pt Follows with [facility] for routine care Pt was seen and care coordinated with Dr Woods. See addendum History of Present Illness Chief Complaint: Alcohol withdrawal Primary Care Provider: [facility] Patient is 61 y/o M with PMH HTN, alcohol abuse, depression, essential tremor, tobacco use presented to ER with c/o alcohol withdrawal. Patient with recurrent hospitalization secondary to alcohol withdrawal and detox request. Patient states had stopped drinking alcohol for 3 months however resumed. Is drinking 30 beers daily. Had 15 beers today. Patient wishes to stop drinking. Does not want to consider rehab at this time. Is not taking any medications for depression. Denies any suicidal or homicidal ideations at this time. Denies fever/chills, diaphoresis, N/V/D/C, CARPENTER, dizziness, syncope, vision changes, neck pain, CP, SOB, orthopnea, palpitations, cough, sore throat, choking, otalgia, rhinorrhea, abdominal pain, paresthesias, weakness, extremity weakness, extremity edema, rashes, urinary symptoms. Allergies Allergy/AdvReac Type Severity Reaction Status Date / Time No Known Allergies Allergy Verified 04/20/22 14:43 Home Medications Medication Instructions Recorded Confirmed Type omeprazole 20 mg tablet,delayed 20 mg PO DAILY 03/16/20 09/17/22 History release clonidine HCl 0.1 mg tablet 0.1 mg PO BID #0 tabs 03/19/20 09/17/22 Rx vitamin B complex 1 tab PO BID 12/08/20 09/17/22 History lisinopril 10 mg tablet 10 mg PO DAILY 09/17/22 09/17/22 History Past Med/Surg History Medical History (Updated 09/17/22 @ 21:33 by Adiel Harris DO) Acute hyponatremia Alcohol abuse Alcohol withdrawal Anxiety Chest pain Depression DVT prophylaxis Dyslipidemia Elevated LFTs Essential tremor GERD (gastroesophageal reflux disease) Heartburn Hypertension Hypertension Mood disorder Suicidal ideation Suicidal thoughts Surgical History No history of previous surgery Family History Father , age 70 from [place] Coronary heart disease Social History Smoking Status: Current every day smoker Tobacco Type: Smokeless Tobacco (Dip or Chew) Cigarettes Per Day: 0.5 pack daily; Second Hand Exposure: No; Do You Dip or Chew Tobacco: No; Hx Alcohol Use: Yes Alcohol type: beer Alcohol Intake Frequency Comment: case of beer a day Hx Substance Use: No Preferred Language: Hebrew Communication Ability: Effective Visual Merchandise Manager Required: No Beliefs That Will Affect Care: None marital status: Current Living Situation: Alone Current Living Situation Comment: pt states lives in large farmhouse where two brothers unrelated to him live Other Information That Helps Us Care for You: No Feels Safe at Home: Yes Safety Concerns: Feels Safe At This Time Assistive Devices: Glasses Review of Systems Review of Systems: All systems reviewed & are unremarkable except as noted in HPI & below Physical Exam Physical Exam: General: no acute distress, appears older than stated age, WDWN Head: normocephalic, atraumatic Eyes: conjunctiva non-injected, anicteric ENT: normal inspection external ears, nose, mucous membranes moist Neck: supple, trachea midline Lungs: clear, no respiratory distress, no wheezing/rhonchi/rales CV: RRR, no murmur, no pretibial edema Abd: normal BS, soft, non-tender Ext: no cyanosis, no calf tenderness Neuro: A&O x 3, no focal deficits noted, normal affect Skin: warm, dry Results & Data Results & Data ([facility]) Vital Signs (Past 12 Hours) Vital Signs Temp Pulse Pulse Resp BP BP Pulse Ox 09/17/22 18:59 98 H 20 152/90 H 93 09/17/22 16:18 36.5 C 81 18 125/83 92 09/17/22 17:00 37 C 97 H 20 148/80 H 94 09/17/22 14:40 36.5 C 84 20 153/71 H 94 09/17/22 14:40 09/17/22 14:40 36.5 C 84 20 153/71 H 94 O2 Del Method 09/17/22 18:59 Room Air 09/17/22 16:18 Room Air 09/17/22 17:00 Room Air 09/17/22 14:40 Room Air 09/17/22 14:40 Room Air 09/17/22 14:40 Room Air Laboratory Results Short CBC 09/17/22 Range/Units 15:51 WBC 5.56 (4.8-10.8) K/ul Hgb 18.2 H (14.0-18.0) g/dl Hct 48.3 (40.1-51.0) % Plt Count 160 (130-400) K/uL BMP 09/17/22 15:51 Sodium 128 L Potassium 4.4 Chloride 94 L Carbon Dioxide 21 BUN 17 Creatinine 0.97 Glucose 96 Calcium 8.9 Liver Function 09/17/22 Range/Units 15:51 Total Bilirubin 1.2 H (0.2-1.0) mg/dl AST 50 H (13-39) U/L ALT 41 (7-52) U/L Alkaline Phosphatase 55 (34-104) U/L Albumin 4.9 (3.4-5.0) gm/dl Code Status & VTE Plan VTE Prophylaxis Plan VTE Prophylaxis will be ordered: Yes Supervising Physician Co-Signing Physician Notes Patient seen and examined by me, care coordinated with Tai Morris PA-C, please refer to her note above for further detail. Pt w/ hx of alcoholism and history of multiple readmissions due to same, now presents with alcohol withdrawal symptoms. Patient reports that he was slowing down on alcohol drinking and felt sick. He also reports that around holidays his mood is worse and he drinks more. In the past was on Zoloft, however says he has not taken Zoloft in a while. Denies SI. Says he would never act on any either. No fevers chills. Mild abdominal discomfort. Reports that he was not eating much at home, however excited to eat now. No shortness of breath, no cough. No chest pain. He is awake able to answer questions appropriately. Mildly tachycardic. Lung sounds clear to auscultation bilaterally without any wheezing, rhonchi, crackles. Abdomen soft nontender nondistended. Moves extremities spontaneously. Alcohol withdrawal protocol. We will closely monitor. Banana bag ordered. Monitor sodium level. MD Chuck (1) Alcohol withdrawal Complication of substance-induced condition: uncomplicated Qualified Code(s): F10.230 - Alcohol dependence with withdrawal, uncomplicated (2) Depression Depression Type: unspecified Qualified Code(s): F32.A - Depression, unspecified (3) Hypertension Hypertension type: unspecified Qualified Code(s): I10 - Essential (primary) hypertension
[2022-09-17] MEDS ORDERED: MULTI-VITAMIN INFUSION 10 ML, THIAMINE HCL 100 MG, FOLIC ACID 1 MG in SODIUM CHLORIDE 0... IV ONE (20:30)
[2022-09-17] MEDS ORDERED: POLYETHYLENE (MIRALAX) 17 GM PACK PO PRN (20:48)
[2022-09-17] MEDS ORDERED: GABAPENTIN 600 MG TAB PO ONE (20:48)
[2022-09-17] MEDS ORDERED: GABAPENTIN 1200MG ALCOHOL WITHDRAWAL LOAD PO STA (20:48)
[2022-09-17] MEDS ORDERED: ACETAMINOPHEN 325 MG TAB PO PRN (20:48)
[2022-09-17] MEDS ORDERED: LORazepam 3 MG in SYRINGE 0 ML IV PRN (20:48)
[2022-09-17] MEDS ORDERED: LORazepam 2 MG in SYRINGE 0 ML IV PRN (20:48)
[2022-09-17] MEDS ORDERED: Ativan IV Alcohol Withdrawal--Active Protocol IV PRN (20:48)
[2022-09-17] MEDS: ONDANSETRON INJ 2 MG/ML 2 ML VIAL IV PRN (21:22)
[2022-09-17] MEDS: FOLIC ACID 1 MG TAB PO SCH (21:23)
[2022-09-17] MEDS: LORazepam 1 MG in SYRINGE 0 ML IV PRN (21:23)
[2022-09-17] MEDS: NICOTINE 14 MG/24 HR PATCH TD SCH (21:24)
[2022-09-17] MEDS: cloNIDine HCL 0.1 MG TAB PO SCH (21:24)
[2022-09-17] MEDS: THIAMINE HCL 100 MG TAB PO SCH (21:24)
[2022-09-18 00:59] LABS: BUN Creatinine Ratio 21.3 (10-20); Calcium 8.1 mg/dl (8.5-10.1); Creatinine Clr Calc Pharmacy 98.3 ml/min; Est GFR (Non-African American) 92.3 ml/min; Potassium 3.8 mmol/L (3.5-5.1)
[2022-09-18] MEDS: LORazepam 1 MG in SYRINGE 0 ML IV PRN ×5 (02:11→16:23)
[2022-09-18] MEDS: ONDANSETRON INJ 2 MG/ML 2 ML VIAL IV PRN (04:29)
[2022-09-18] MEDS: GABAPENTIN 600 MG TAB PO SCH ×3 (04:50→22:48)
[2022-09-18 07:09] LABS: Albumin Globulin Ratio 1.7 (0.9-2); Albumin Level 4.7 gm/dl (3.4-5.0); BUN Creatinine Ratio 19.8 (10-20); Bilirubin,Total 1.9 mg/dl (0.2-1.0); Calcium 8.5 mg/dl (8.5-10.1); Est GFR (African American) 111.2 ml/min; Est GFR (Non-African American) 95.9 ml/min; Globulin 2.7 gm/dl (2.5-4.0); Magnesium 1.9 mg/dl (1.7-2.4); Phosphorus 2.5 mg/dl (2.5-4.9); Total Protein 7.4 gm/dl (6.0-8.3)
[2022-09-18 07:12] LABS: Hematocrit (blood only) 45.6 % (40.1-51.0); Mean Corpuscular Hemoglobin 32.9 pg (25.0-34.0); Mean Corpuscular Hgb Conc 37.3 g/dL (32.0-36.0); Mean Corpuscular Volume 88.4 fL (80.0-100.0); Mean Platelet Volume 9.9 fL (9.4-12.4); Platelet Count 152 K/uL (130-400); RDW Coefficient of Variation 11.7 % (11.5-14.5); RDW Standard Deviation 37.5 fL (36.4-46.3); Red Blood Count 5.16 M/uL (4.63-6.08); White Blood Count 4.57 K/ul (4.8-10.8)
[2022-09-18] MEDS: THIAMINE HCL 100 MG TAB PO SCH (10:28)
[2022-09-18] MEDS: lisinopril 10 MG TAB PO SCH (10:28)
[2022-09-18] MEDS: FOLIC ACID 1 MG TAB PO SCH (10:28)
[2022-09-18] MEDS: cloNIDine HCL 0.1 MG TAB PO SCH ×2 (10:28→22:20)
[2022-09-18] MEDS: MULTIVITAMIN TAB PO SCH (10:28)
[2022-09-18] MEDS: NICOTINE 14 MG/24 HR PATCH TD SCH (10:29)
[2022-09-18] MEDS: PANTOprazole 40 MG TAB PO SCH (10:29)
--- NOTE | 2022-09-18 13:10 | Hospitalist Progress Note ---
Date of Service September 18, 2022 Assessment & Plan (1) Alcohol withdrawal: Plan: Patient is 61 y/o M with HTN, alcohol abuse, depression, essential tremor, tobacco use presented to ER with c/o alcohol withdrawal and alcohol detox request. History multiple alcohol rehab stays in past. Denies history of DTs, seizures Drinks 30 beers daily In ER ETOH level: 275. Given Ativan 3mg IV in ED banana bag ordered on admission Alcohol withdrawal protocol with gabapentin Folic acid, thiamine, multivitamin daily Does not want alcohol rehab at this time monitor CBC, CMP, magnesium, phosphorus levels (2) Hyponatremia: Plan: Na: 128 on admission Received banana bag. Will order IV NS Monitor Na level (3) Depression: Plan: Denies suicidal ideations currently Not on current medication per patient's preference (4) Hypertension: Plan: Continue lisinopril (5) Tobacco use: Plan: Smoking cessation encouraged Nicotine patch DVT Prophylaxis SCDs Full Code as per discussion with pt Follows with [facility] for routine care Admission and Anticipated Discharge Date Admission Date: September 17, 2022 Subjective Pt seen in follow-up of alcoholism Currently laying in bed, resting in no acute distress Sitter present, however not needed and will dc Patient was seen by psychiatry, no concern for SI at this time No fevers chills chest pain shortness of breath abdominal pain nausea vomiting Review of Systems Review of Systems: All systems reviewed & are unremarkable except as noted in Subjective Physical Exam Physical Exam: General: no acute distress, WD/WN Head: normocephalic, atraumatic Eyes: conjunctiva non-injected, anicteric ENT: normal inspection external ears, nose, mucous membranes moist Neck: supple Lungs: clear, no respiratory distress, no wheezing/rhonchi/rales CV: RRR, no murmur, no pretibial edema Abd: normal BS, soft, non-tender Ext: no calf tenderness, moves extremities Neuro: A&O x 3, no focal deficits noted, normal affect Skin: warm, dry Results & Data Results & Data ([facility]) Vital Signs (Past 12 Hours) Vital Signs Temp Pulse Pulse Resp BP Pulse Ox O2 Del Method 09/18/22 10:29 36.4 C L 74 18 179/96 H 95 Room Air 09/18/22 07:27 87 09/18/22 07:07 36.8 C 85 20 141/95 H 96 Room Air 09/18/22 04:26 36.7 C 84 18 167/93 H Room Air 09/18/22 02:01 36.8 C 93 H 20 160/91 H 92 Room Air Laboratory Results 09/18/22 09/18/22 09/18/22 Range/Units 06:22 06:22 00:15 WBC 4.57 L (4.8-10.8) K/ul RBC 5.16 (4.63-6.08) M/uL Hgb 17.0 (14.0-18.0) g/dl Hct 45.6 (40.1-51.0) % MCV 88.4 (80.0-100.0) fL MCH 32.9 (25.0-34.0) pg MCHC 37.3 H (32.0-36.0) g/dL RDW Std Deviation 37.5 (36.4-46.3) fL RDW Coeff of Eloy 11.7 (11.5-14.5) % Plt Count 152 (130-400) K/uL MPV 9.9 (9.4-12.4) fL Immature Gran % (Auto) % Neut % (Auto) % Lymph % (Auto) % Petroleum % (Auto) % Eos % (Auto) % Baso % (Auto) % Neut # (Auto) (1.4-6.5) K/uL Lymph # (Auto) (1.2-3.4) K/uL Petroleum # (Auto) (0.24-0.82) K/uL Eos # (Auto) (0-0.50) K/uL Baso # (Auto) (0-0.2) K/uL Immature Gran # (Auto) (0.00-0.02) K/uL Sodium 126 L 127 L (136-145) mmol/L Potassium 4.0 3.8 (3.5-5.1) mmol/L Chloride 95 L 96 L (98-107) mmol/L Carbon Dioxide 23 21 (21-32) mmol/L Anion Gap 8 10 (3-11) BUN 16 19 (6-23) mg/dl Creatinine 0.81 0.89 (0.6-1.4) mg/dl Est Cr Clr Drug Dosing 108.0 98.3 ml/min Est GFR ( Amer) 111.2 107.0 ml/min Est GFR (Non-Af Amer) 95.9 92.3 ml/min BUN/Creatinine Ratio 19.8 21.3 H (10-20) Glucose 114 H 124 H (70-99(Fasting)) mg/dl Calcium 8.5 8.1 L (8.5-10.1) mg/dl Phosphorus 2.5 D (2.5-4.9) mg/dl Magnesium 1.9 (1.7-2.4) mg/dl Total Bilirubin 1.9 H D (0.2-1.0) mg/dl AST 45 H (13-39) U/L ALT 38 (7-52) U/L Alkaline Phosphatase 64 (34-104) U/L Total Protein 7.4 (6.0-8.3) gm/dl Albumin 4.7 (3.4-5.0) gm/dl Globulin 2.7 (2.5-4.0) gm/dl Albumin/Globulin Ratio 1.7 (0.9-2) Lipase (11-82) U/L Ethyl Alcohol mg/dL (<10.0) mg/dl SARS-CoV-2, RNA, NAAT (NEGATIVE) 09/17/22 09/17/22 09/17/22 Range/Units 15:51 15:51 15:51 WBC 5.56 (4.8-10.8) K/ul RBC 5.47 (4.63-6.08) M/uL Hgb 18.2 H (14.0-18.0) g/dl Hct 48.3 (40.1-51.0) % MCV 88.3 (80.0-100.0) fL MCH 33.3 (25.0-34.0) pg MCHC 37.7 H (32.0-36.0) g/dL RDW Std Deviation 37.8 (36.4-46.3) fL RDW Coeff of Eloy 11.7 (11.5-14.5) % Plt Count 160 (130-400) K/uL MPV 9.6 (9.4-12.4) fL Immature Gran % (Auto) 0.4 % Neut % (Auto) 51.6 % Lymph % (Auto) 37.2 % Petroleum % (Auto) 9.4 % Eos % (Auto) 0.7 % Baso % (Auto) 0.7 % Neut # (Auto) 2.87 (1.4-6.5) K/uL Lymph # (Auto) 2.07 (1.2-3.4) K/uL Petroleum # (Auto) 0.52 (0.24-0.82) K/uL Eos # (Auto) 0.04 (0-0.50) K/uL Baso # (Auto) 0.04 (0-0.2) K/uL Immature Gran # (Auto) 0.02 (0.00-0.02) K/uL Sodium (136-145) mmol/L Potassium (3.5-5.1) mmol/L Chloride (98-107) mmol/L Carbon Dioxide (21-32) mmol/L Anion Gap (3-11) BUN (6-23) mg/dl Creatinine (0.6-1.4) mg/dl Est Cr Clr Drug Dosing ml/min Est GFR ( Amer) ml/min Est GFR (Non-Af Amer) ml/min BUN/Creatinine Ratio (10-20) Glucose (70-99(Fasting)) mg/dl Calcium (8.5-10.1) mg/dl Phosphorus 3.7 (2.5-4.9) mg/dl Magnesium 2.2 (1.7-2.4) mg/dl Total Bilirubin (0.2-1.0) mg/dl AST (13-39) U/L ALT (7-52) U/L Alkaline Phosphatase (34-104) U/L Total Protein (6.0-8.3) gm/dl Albumin (3.4-5.0) gm/dl Globulin (2.5-4.0) gm/dl Albumin/Globulin Ratio (0.9-2) Lipase (11-82) U/L Ethyl Alcohol mg/dL 275.9 H (<10.0) mg/dl SARS-CoV-2, RNA, NAAT (NEGATIVE) 09/17/22 09/17/22 Range/Units 15:51 14:48 WBC (4.8-10.8) K/ul RBC (4.63-6.08) M/uL Hgb (14.0-18.0) g/dl Hct (40.1-51.0) % MCV (80.0-100.0) fL MCH (25.0-34.0) pg MCHC (32.0-36.0) g/dL RDW Std Deviation (36.4-46.3) fL RDW Coeff of Eloy (11.5-14.5) % Plt Count (130-400) K/uL MPV (9.4-12.4) fL Immature Gran % (Auto) % Neut % (Auto) % Lymph % (Auto) % Petroleum % (Auto) % Eos % (Auto) % Baso % (Auto) % Neut # (Auto) (1.4-6.5) K/uL Lymph # (Auto) (1.2-3.4) K/uL Petroleum # (Auto) (0.24-0.82) K/uL Eos # (Auto) (0-0.50) K/uL Baso # (Auto) (0-0.2) K/uL Immature Gran # (Auto) (0.00-0.02) K/uL Sodium 128 L (136-145) mmol/L Potassium 4.4 (3.5-5.1) mmol/L Chloride 94 L (98-107) mmol/L Carbon Dioxide 21 (21-32) mmol/L Anion Gap 13 H (3-11) BUN 17 (6-23) mg/dl Creatinine 0.97 (0.6-1.4) mg/dl Est Cr Clr Drug Dosing 90.3 ml/min Est GFR ( Amer) 97.3 ml/min Est GFR (Non-Af Amer) 83.9 ml/min BUN/Creatinine Ratio 17.5 (10-20) Glucose 96 (70-99(Fasting)) mg/dl Calcium 8.9 (8.5-10.1) mg/dl Phosphorus (2.5-4.9) mg/dl Magnesium (1.7-2.4) mg/dl Total Bilirubin 1.2 H (0.2-1.0) mg/dl AST 50 H (13-39) U/L ALT 41 (7-52) U/L Alkaline Phosphatase 55 (34-104) U/L Total Protein 7.9 (6.0-8.3) gm/dl Albumin 4.9 (3.4-5.0) gm/dl Globulin 3.0 (2.5-4.0) gm/dl Albumin/Globulin Ratio 1.6 (0.9-2) Lipase 112 H (11-82) U/L Ethyl Alcohol mg/dL (<10.0) mg/dl SARS-CoV-2, RNA, NAAT NEGATIVE (NEGATIVE) Medications Administered Current Inpatient Medications Acetaminophen (Acetaminophen 325 Mg Tab) 650 mg PO Q4H PRN PRN Reason: Pain or Fever Stop: 10/17/22 20:47 Clonidine HCl (Clonidine Hcl 0.1 Mg Tab) 0.1 mg PO BID [facility] Stop: 10/17/22 20:59 Last Admin: 09/18/22 10:28 Dose: 0.1 mg Folic Acid (Folic Acid 1 Mg Tab) 1 mg PO QAM [facility] Stop: 10/17/22 20:47 Last Admin: 09/18/22 10:28 Dose: 1 mg Gabapentin (Gabapentin 600 Mg Tab) 600 mg PO Q8H [facility] Stop: 09/19/22 14:01 Gabapentin (Gabapentin 600 Mg Tab) 600 mg PO Q12H [facility] Stop: 09/20/22 12:01 Gabapentin (Gabapentin 600 Mg Tab) 600 mg PO Q24H [facility] Stop: 09/21/22 12:01 Lorazepam 1 mg/ Syringe 1 mls @ 2 mls/min IV UD PRN; Protocol PRN Reason: EtOH Withdrawal AWSS Score 6,7 Stop: 10/17/22 20:47 Last Admin: 09/18/22 10:44 Dose: 2 mls/min Lorazepam 2 mg/ Syringe 2 mls @ 2 mls/min IV UD PRN; Protocol PRN Reason: EtOH Withdrawal AWSS Score 8,9 Stop: 10/17/22 20:47 Last Admin: 09/18/22 07:19 Dose: 2 mls/min Lorazepam 3 mg/ Syringe 3 mls @ 2 mls/min IV ONCE PRN; Protocol PRN Reason: EtOH Withdrawal AWSS Score 10 & above Lisinopril (Lisinopril 10 Mg Tab) 10 mg PO DAILY [facility] Stop: 10/18/22 08:59 Last Admin: 09/18/22 10:28 Dose: 10 mg Miscellaneous (Remove Nicoderm Patch) 1 each N/A DAILY@0859 [facility] Stop: 10/18/22 08:58 Last Admin: 09/18/22 10:29 Dose: Not Given Multivitamins ([facility]itamin Tab) [facility] Stop: 10/18/22 08:59 Last Admin: 09/18/22 10:28 Dose: 1 tab Nicotine (Nicotine 14 Mg/24 Hr Patch) 14 mg TD QAM [facility] Stop: 10/17/22 20:49 Last Admin: 09/18/22 10:29 Dose: Not Given Ondansetron HCl (Ondansetron Inj 2 Mg/Ml 2 Ml Vial) 4 mg IV Q6H PRN PRN Reason: Nausea Stop: 10/17/22 20:47 Last Admin: 09/18/22 04:29 Dose: 4 mg Pantoprazole Sodium (Pantoprazole 40 Mg Tab) 40 mg PO DAILY [facility] Stop: 10/18/22 08:59 Last Admin: 09/18/22 10:29 Dose: 40 mg Polyethylene Glycol (Polyethylene (Miralax) 17 Gm Pack) 17 gm PO DAILY PRN PRN Reason: Constipation Stop: 10/17/22 20:47 Thiamine HCl (Thiamine Hcl 100 Mg Tab) 100 mg PO [facility] Stop: 10/17/22 20:47 Last Admin: 09/18/22 10:28 Dose: 100 mg (1) Alcohol withdrawal Complication of substance-induced condition: uncomplicated Qualified Code(s): F10.230 - Alcohol dependence with withdrawal, uncomplicated (2) Depression Depression Type: unspecified Qualified Code(s): F32.A - Depression, unspecified (3) Hypertension Hypertension type: unspecified Qualified Code(s): I10 - Essential (primary) hypertension
--- NOTE | 2022-09-18 13:26 | Psychiatric Consultation ---
Date of Consultation September 18, 2022 Impression / Recommendations Impression This is a 61 yo with a history of alcohol use admitted medically. Diagnostically consistent with alcohol use disorder as well as unspecified depression likely a combination of substance-induced as well as MDD, mild. At this point risk of harm to self is low given denial of SI and most significant modifiable risk factor of intoxication has improved and he is interested in potentially engaging with outpatient substance use treatment. Chronic risk of self-harm and harm to others is slightly increased and moderate due to substance use with substance use treatment being the most significant modifiable risk factor to reduce acute and chronic risk. They do not meet involuntary criteria for inpatient psychiatric treatment and he is not interested in residential substance use treatment. He is willing to consider outpatient services such as [facility] to help with substance use. (1) Alcohol use disorder, severe, dependence: (2) Depression: (3) Hyponatremia: Plan -Provided with information on local substance use services including [facility] which he plans to discuss more with his CM through [facility] if he decides to start this -Patient is not an imminent danger to self or others and does not meet criteria for involuntary psychiatric commitment -Continue AWSS as well as thiamine and folic acid -In the outpatient setting could consider starting acamprosate 333mg TID if Cr/renal stable, not available on hospital formulary to start here. -Could consider SSRI initiation in the future for depression if hyponatremia improves Psych History Identifying Data 61 yo man with history of alcohol use disorder admitted medically for alcohol withdrawal. Psychiatry consulted after possible statements of SI for risk assessment. Chief Complaint "No nothing like that, I told the 911 person I called that I didn't feel safe because I couldn't drive because I was drinking, not because I was suicidal". History of Present Illness Shadi presented to the ED with intoxication from alcohol requesting help with managing withdrawal symptoms and for a supervised management of detox. Today he is clinically sober and is receiving ativan per AWSS protocol. He adamantly denies SI and doesn't recall making any suicidal statements, clarifies if he said he didn't feel safe this was related to feeling unsafe driving due to his drinking. He denies any prior suicide attempts. He is socially isolated and notes that the holidays are a difficult time of year but is future-oriented, has reasons for living, is hopeful, denies symptoms of severe depression and feels well supported by his case management coordinator at [facility] in seeking outpatient substance use support. Discussed [facility] which he will consider. Tried naltrexone in the past but had significant swelling after naltrexone IM and had sweating with the po version. Has never tried acamprosate. Past Psychiatric History Previous Psych Admissions: denies History of Previous Suicide Attempt: No Allergies Allergy/AdvReac Type Severity Reaction Status Date / Time No Known Allergies Allergy Verified 04/20/22 14:43 Home Medications Medication Instructions Recorded Confirmed Type omeprazole 20 mg tablet,delayed 20 mg PO DAILY 03/16/20 09/17/22 History release clonidine HCl 0.1 mg tablet 0.1 mg PO BID #0 tabs 03/19/20 09/17/22 Rx vitamin B complex 1 tab PO BID 12/08/20 09/17/22 History lisinopril 10 mg tablet 10 mg PO DAILY 09/17/22 09/17/22 History Substance Abuse History significant hx of alcohol use, has been drinking ~30 beers per day Personal History Employment Status: Retired Beliefs That Will Affect Care: None Patient History Medical History Acute hyponatremia Alcohol abuse Alcohol withdrawal Anxiety Chest pain Depression DVT prophylaxis Dyslipidemia Elevated LFTs Essential tremor GERD (gastroesophageal reflux disease) Heartburn Hypertension Hypertension Mood disorder Suicidal ideation Suicidal thoughts Surgical History No history of previous surgery Family History Father , age 70 from [place] Coronary heart disease Social History Smoking Status: Current every day smoker Tobacco Type: Smokeless Tobacco (Dip or Chew) Cigarettes Per Day: 0.5 pack daily; Second Hand Exposure: No; Do You Dip or Chew Tobacco: No; Hx Alcohol Use: Yes Alcohol type: beer Alcohol Intake Frequency Comment: case of beer a day Hx Substance Use: No Preferred Language: Gambian Communication Ability: Effective Installer Helper Required: No Beliefs That Will Affect Care: None marital status: Current Living Situation: Alone Current Living Situation Comment: pt states lives in large farmhouse where two brothers unrelated to him live Other Information That Helps Us Care for You: No Feels Safe at Home: Yes Safety Concerns: Feels Safe At This Time Assistive Devices: Glasses Physical Exam Psychiatric: Orientation: alert and oriented x 3 Apperance: appropriately dressed and appropriately groomed Eye Contact: good eye contact Motor Behavior: no abnormal motor movements Speech: normal rate/rhythm/volume of speech Affect: euthymic affect Mood: + depressed mood; no anxious mood Thought Process: linear/logical thought process Thought Content: reality based without delusions Suicidal Thoughts: denies suicidal thoughts Homicidal Thoughts: denies homicidal thoughts Hallucinations: no auditory hallucinations and no visual hallucinations Cognition: recent memory grossly intact, remote memory grossly intact, attention grossly intact and language grossly intact Estimated Intelligence: consistent with education level Insight: + limited insight Judgement: + limited judgement Vital Signs (Past 24 Hours): Last Vital Signs Temp 36.6 C 09/18/22 13:21 Pulse 102 H 09/18/22 13:21 Resp 18 09/18/22 13:21 BP 153/97 H 09/18/22 13:21 Pulse Ox 97 09/18/22 13:21 O2 Del Method 09/18/22 13:21 Review of Systems All systems reviewed & are unremarkable except as noted in HPI & below Results & Data (PSY) Medications Administered Clonidine HCl (Clonidine Hcl 0.1 Mg Tab) 0.1 mg PO BID [facility] Stop: 10/17/22 20:59 Last Admin: 09/18/22 10:28 Dose: 0.1 mg Documented By: Admin: 09/17/22 21:24 Dose: 0.1 mg Documented By: BRANDEE Folic Acid (Folic Acid 1 Mg Tab) 1 mg PO QAM [facility] Stop: 10/17/22 20:47 Last Admin: 09/18/22 10:28 Dose: 1 mg Documented By: Admin: 09/17/22 21:23 Dose: 1 mg Documented By: BRANDEE Lorazepam 1 mg/ Syringe 1 mls @ 2 mls/min IV UD PRN; Protocol PRN Reason: EtOH Withdrawal AWSS Score 6,7 Stop: 10/17/22 20:47 Last Admin: 09/18/22 10:44 Dose: 2 mls/min Documented By: Admin: 09/18/22 04:50 Dose: 2 mls/min Documented By: Admin: 09/18/22 02:11 Dose: 2 mls/min Documented By: Admin: 09/17/22 21:23 Dose: 2 mls/min Documented By: BRANDEE Lorazepam 2 mg/ Syringe 2 mls @ 2 mls/min IV UD PRN; Protocol PRN Reason: EtOH Withdrawal AWSS Score 8,9 Stop: 10/17/22 20:47 Last Admin: 09/18/22 07:19 Dose: 2 mls/min Documented By: RICHARD Lisinopril (Lisinopril 10 Mg Tab) 10 mg PO DAILY [facility] Stop: 10/18/22 08:59 Last Admin: 09/18/22 10:28 Dose: 10 mg Documented By: RICHARD Miscellaneous (Remove Nicoderm Patch) 1 each N/A DAILY@0859 [facility] Stop: 10/18/22 08:58 Last Admin: 09/18/22 10:29 Dose: Not Given Documented By: RICHARD Multivitamins (Multivitamin Tab) 1 tab PO [facility] Stop: 10/18/22 08:59 Last Admin: 09/18/22 10:28 Dose: 1 tab Documented By: RICHARD Nicotine (Nicotine 14 Mg/24 Hr Patch) 14 mg TD [facility] Stop: 10/17/22 20:49 Last Admin: 09/18/22 10:29 Dose: Not Given Documented By: Admin: 09/17/22 21:24 Dose: 14 mg Documented By: BRANDEE Ondansetron HCl (Ondansetron Inj 2 Mg/Ml 2 Ml Vial) 4 mg IV Q6H PRN PRN Reason: Nausea Stop: 10/17/22 20:47 Last Admin: 09/18/22 04:29 Dose: 4 mg Documented By: Admin: 09/17/22 21:22 Dose: 4 mg Documented By: BRANDEE Pantoprazole Sodium (Pantoprazole 40 Mg Tab) 40 mg PO DAILY [facility] Stop: 10/18/22 08:59 Last Admin: 09/18/22 10:29 Dose: 40 mg Documented By: RICHARD Thiamine HCl (Thiamine Hcl 100 Mg Tab) 100 mg PO QAM [facility] Stop: 10/17/22 20:47 Last Admin: 09/18/22 10:28 Dose: 100 mg Documented By: Admin: 09/17/22 21:24 Dose: 100 mg Documented By: BRANDEE Coding Level of Care Code 75034 Inpt Consult Level 2 Diagnoses Alcohol use disorder, severe, dependence F10.20 Depression F32.A Hyponatremia E87.1
[2022-09-18] MEDS: SODIUM CHLORIDE 0.9% 1000ML 1,000 ML IV SCH ×2 (14:43→22:19)
[2022-09-18] MEDS ORDERED: SALINE LOCK FLUSH IV SCH (18:00)
[2022-09-18 23:20] LABS: BUN Creatinine Ratio 12.7 (10-20); Calcium 8.9 mg/dl (8.5-10.1); Creatinine Clr Calc Pharmacy 110.8 ml/min; Est GFR (African American) 112.3 ml/min; Est GFR (Non-African American) 96.9 ml/min; Potassium 3.7 mmol/L (3.5-5.1)
[2022-09-19] MEDS: SODIUM CHLORIDE 0.9% 1000ML 1,000 ML IV SCH (05:00)
[2022-09-19] MEDS: GABAPENTIN 600 MG TAB PO SCH ×3 (05:00→23:01)
--- NOTE | 2022-09-19 07:28 | Hospitalist Progress Note ---
Date of Service September 19, 2022 Assessment & Plan (1) Alcohol withdrawal: Plan: Patient is 61 y/o M with HTN, alcohol abuse, depression, essential tremor, tobacco use presented to ER with c/o alcohol withdrawal and alcohol detox request. History multiple alcohol rehab stays in past. Denies history of DTs, seizures Drinks 30 beers daily In ER ETOH level: 275. Given Ativan 3mg IV in ED banana bag ordered on admission Alcohol withdrawal protocol with gabapentin Folic acid, thiamine, multivitamin daily monitor CBC, CMP, magnesium, phosphorus levels Pt also seen by psychiatry for alcohol abuse disorder and depression -Provided with information on local substance use services including [facility] which he plans to discuss more with his CM through [facility] if he decides to start this -Patient is not an imminent danger to self or others and does not meet criteria for involuntary psychiatric commitment -Continue AWSS as well as thiamine and folic acid -In the outpatient setting could consider starting acamprosate 333mg TID if Cr/renal stable, not available on hospital formulary to start here. -Could consider SSRI initiation in the future for depression if hyponatremia improves (2) Hyponatremia: Plan: Na: 128 on admission Received banana bag. on admission, then IV NS Na level improved to 133 Monitor Na level (3) Depression: Plan: Denies suicidal ideations currently Not on current medication per patient's preference (4) Hypertension: Plan: Continue lisinopril (5) Tobacco use: Plan: Smoking cessation encouraged Nicotine patch DVT Prophylaxis SCDs Full Code as per discussion with pt Follows with [facility] for routine care Admission and Anticipated Discharge Date Admission Date: September 17, 2022 Subjective Pt seen in follow-up of alcoholism Currently sitting up in bed, resting in no acute distress Denies any fevers chills chest pain shortness of breath abdominal pain nausea vomiting Patient was seen by psychiatry, no concern for SI at this time Review of Systems Review of Systems: All systems reviewed & are unremarkable except as noted in Subjective Physical Exam Physical Exam: General: no acute distress, WD/WN Head: normocephalic, atraumatic Eyes: conjunctiva non-injected, anicteric ENT: normal inspection external ears, nose, mucous membranes moist Neck: supple Lungs: clear, no respiratory distress, no wheezing/rhonchi/rales CV: RRR, no murmur, no pretibial edema Abd: normal BS, soft, non-tender Ext: no calf tenderness, moves extremities Neuro: A&O x 3, no focal deficits noted, normal affect Skin: warm, dry Results & Data Results & Data ([facility]) Vital Signs (Past 12 Hours) Vital Signs Temp Pulse Pulse Pulse Resp BP Pulse Ox 09/19/22 07:04 77 09/19/22 04:33 36.4 C L 74 18 157/79 H 95 09/18/22 22:09 79 09/19/22 00:09 36.8 C 79 20 160/92 H 96 09/18/22 22:24 36.5 C 79 18 167/94 H 95 09/18/22 19:52 36.7 C 80 20 163/89 H 95 O2 Del Method 09/19/22 07:04 09/19/22 04:33 Room Air 09/18/22 22:09 09/19/22 00:09 Room Air 09/18/22 22:24 Room Air 09/18/22 19:52 Room Air Laboratory Results 09/19/22 09/19/22 09/18/22 Range/Units 07:14 07:14 22:25 WBC 3.69 L (4.8-10.8) K/ul RBC 4.99 (4.63-6.08) M/uL Hgb 16.3 (14.0-18.0) g/dl Hct 44.1 (40.1-51.0) % MCV 88.4 (80.0-100.0) fL MCH 32.7 (25.0-34.0) pg MCHC 37.0 H (32.0-36.0) g/dL RDW Std Deviation 37.7 (36.4-46.3) fL RDW Coeff of Eloy 11.7 (11.5-14.5) % Plt Count 118 L (130-400) K/uL MPV 10.1 (9.4-12.4) fL Platelet Estimate Decreased L (Normal) Sodium 133 L 133 L (136-145) mmol/L Potassium 3.9 3.7 (3.5-5.1) mmol/L Chloride 100 100 (98-107) mmol/L Carbon Dioxide 25 23 (21-32) mmol/L Anion Gap 8 10 (3-11) BUN 8 10 (6-23) mg/dl Creatinine 0.72 0.79 (0.6-1.4) mg/dl Est Cr Clr Drug Dosing 121.4 110.8 ml/min Est GFR ( Amer) 116.7 112.3 ml/min Est GFR (Non-Af Amer) 100.7 96.9 ml/min BUN/Creatinine Ratio 11.1 12.7 (10-20) Glucose 124 H 133 H (70-99(Fasting)) mg/dl Calcium 8.5 8.9 (8.5-10.1) mg/dl Phosphorus 2.1 L (2.5-4.9) mg/dl Magnesium 1.8 (1.7-2.4) mg/dl Medications Administered Current Inpatient Medications Acetaminophen (Acetaminophen 325 Mg Tab) 650 mg PO Q4H PRN PRN Reason: Pain or Fever Stop: 10/17/22 20:47 Clonidine HCl (Clonidine Hcl 0.1 Mg Tab) 0.1 mg PO BID [facility] Stop: 10/17/22 20:59 Last Admin: 09/18/22 22:20 Dose: 0.1 mg Folic Acid (Folic Acid 1 Mg Tab) 1 mg PO QAM [facility] Stop: 10/17/22 20:47 Last Admin: 09/18/22 10:28 Dose: 1 mg Gabapentin (Gabapentin 600 Mg Tab) 600 mg PO Q8H [facility] Stop: 09/19/22 14:01 Last Admin: 09/19/22 05:00 Dose: 600 mg Gabapentin (Gabapentin 600 Mg Tab) 600 mg PO Q12H [facility] Stop: 09/20/22 12:01 Gabapentin (Gabapentin 600 Mg Tab) 600 mg PO Q24H [facility] Stop: 09/21/22 12:01 Lorazepam 1 mg/ Syringe 1 mls @ 2 mls/min IV UD PRN; Protocol PRN Reason: EtOH Withdrawal AWSS Score 6,7 Stop: 10/17/22 20:47 Last Admin: 09/18/22 16:23 Dose: 2 mls/min Lorazepam 2 mg/ Syringe 2 mls @ 2 mls/min IV UD PRN; Protocol PRN Reason: EtOH Withdrawal AWSS Score 8,9 Stop: 10/17/22 20:47 Last Admin: 09/18/22 07:19 Dose: 2 mls/min Lorazepam 3 mg/ Syringe 3 mls @ 2 mls/min IV ONCE PRN; Protocol PRN Reason: EtOH Withdrawal AWSS Score 10 & above Sodium Chloride (Nss 1000ml) 1,000 mls @ 125 mls/hr IV .Q8H [facility] Stop: 10/18/22 14:44 Last Admin: 09/19/22 05:00 Dose: 125 mls/hr Lisinopril (Lisinopril 10 Mg Tab) 10 mg PO DAILY [facility] Stop: 10/18/22 08:59 Last Admin: 09/18/22 10:28 Dose: 10 mg Miscellaneous (Remove Nicoderm Patch) 1 each N/A DAILY@0859 [facility] Stop: 10/18/22 08:58 Last Admin: 09/18/22 10:29 Dose: Not Given Multivitamins (Multivitamin Tab) 1 tab PO QAM [facility] Stop: 10/18/22 08:59 Last Admin: 09/18/22 10:28 Dose: 1 tab Nicotine (Nicotine 14 Mg/24 Hr Patch) 14 [facility] Stop: 10/17/22 20:49 Last Admin: 09/18/22 10:29 Dose: Not Given Ondansetron HCl (Ondansetron Inj 2 Mg/Ml 2 Ml Vial) 4 mg IV Q6H PRN PRN Reason: Nausea Stop: 10/17/22 20:47 Last Admin: 09/18/22 04:29 Dose: 4 mg Pantoprazole Sodium (Pantoprazole 40 Mg Tab) 40 mg PO DAILY [facility] Stop: 10/18/22 08:59 Last Admin: 09/18/22 10:29 Dose: 40 mg Polyethylene Glycol (Polyethylene (Miralax) 17 Gm Pack) 17 gm PO DAILY PRN PRN Reason: Constipation Stop: 10/17/22 20:47 Thiamine HCl (Thiamine Hcl 100 Mg Tab) 100 mg PO QAM [facility] Stop: 10/17/22 20:47 Last Admin: 09/18/22 10:28 Dose: 100 mg (1) Alcohol withdrawal Complication of substance-induced condition: uncomplicated Qualified Code(s): F10.230 - Alcohol dependence with withdrawal, uncomplicated (2) Depression Depression Type: unspecified Qualified Code(s): F32.A - Depression, unspecified (3) Hypertension Hypertension type: unspecified Qualified Code(s): I10 - Essential (primary) hypertension
[2022-09-19] MEDS: LORazepam 1 MG in SYRINGE 0 ML IV PRN ×2 (07:47→20:33)
[2022-09-19 07:57] LABS: Hematocrit (blood only) 44.1 % (40.1-51.0); Hemoglobin 16.3 g/dl (14.0-18.0); Mean Corpuscular Hemoglobin 32.7 pg (25.0-34.0); Mean Corpuscular Volume 88.4 fL (80.0-100.0); Mean Platelet Volume 10.1 fL (9.4-12.4); Platelet Count 118 K/uL (130-400); Platelet Estimate Decreased (Normal); RDW Coefficient of Variation 11.7 % (11.5-14.5); RDW Standard Deviation 37.7 fL (36.4-46.3); Red Blood Count 4.99 M/uL (4.63-6.08); White Blood Count 3.69 K/ul (4.8-10.8)
[2022-09-19 07:59] LABS: BUN Creatinine Ratio 11.1 (10-20); Calcium 8.5 mg/dl (8.5-10.1); Creatinine Clr Calc Pharmacy 121.4 ml/min; Est GFR (African American) 116.7 ml/min; Est GFR (Non-African American) 100.7 ml/min; Magnesium 1.8 mg/dl (1.7-2.4); Phosphorus 2.1 mg/dl (2.5-4.9); Potassium 3.9 mmol/L (3.5-5.1)
[2022-09-19] MEDS: NICOTINE 14 MG/24 HR PATCH TD SCH (08:06)
[2022-09-19] MEDS: FOLIC ACID 1 MG TAB PO SCH (08:06)
[2022-09-19] MEDS: cloNIDine HCL 0.1 MG TAB PO SCH ×2 (08:06→20:34)
[2022-09-19] MEDS: MULTIVITAMIN TAB PO SCH (08:06)
[2022-09-19] MEDS: lisinopril 10 MG TAB PO SCH (08:06)
[2022-09-19] MEDS: THIAMINE HCL 100 MG TAB PO SCH (08:06)
[2022-09-19] MEDS: PANTOprazole 40 MG TAB PO SCH (08:06)
[2022-09-20] MEDS: FOLIC ACID 1 MG TAB PO SCH (07:39)
[2022-09-20] MEDS: PANTOprazole 40 MG TAB PO SCH (07:40)
[2022-09-20] MEDS: MULTIVITAMIN TAB PO SCH (07:40)
[2022-09-20] MEDS: lisinopril 10 MG TAB PO SCH (07:40)
[2022-09-20] MEDS: cloNIDine HCL 0.1 MG TAB PO SCH (07:40)
[2022-09-20] MEDS: NICOTINE 14 MG/24 HR PATCH TD SCH (07:41)
[2022-09-20] MEDS: THIAMINE HCL 100 MG TAB PO SCH (07:41)
[2022-09-20 09:02] LABS: Hematocrit (blood only) 48.8 % (40.1-51.0); Hemoglobin 17.8 g/dl (14.0-18.0); Mean Corpuscular Hgb Conc 36.5 g/dL (32.0-36.0); Mean Corpuscular Volume 90.5 fL (80.0-100.0); Mean Platelet Volume 10.8 fL (9.4-12.4); Platelet Count 132 K/uL (130-400); RDW Coefficient of Variation 11.8 % (11.5-14.5); RDW Standard Deviation 38.9 fL (36.4-46.3); Red Blood Count 5.39 M/uL (4.63-6.08); White Blood Count 3.89 K/ul (4.8-10.8)
[2022-09-20 09:17] LABS: BUN Creatinine Ratio 12.8 (10-20); Calcium 9.6 mg/dl (8.5-10.1); Creatinine Clr Calc Pharmacy 92.5 ml/min; Est GFR (Non-African American) 87.2 ml/min; Magnesium 1.8 mg/dl (1.7-2.4); Phosphorus 3.4 mg/dl (2.5-4.9); Potassium 3.9 mmol/L (3.5-5.1)
--- NOTE | 2022-09-20 10:37 | Hospitalist Progress Note ---
Date of Service September 20, 2022 Assessment & Plan (1) Alcohol withdrawal: Plan: Patient is 61 y/o M with HTN, alcohol abuse, depression, essential tremor, tobacco use presented to ER with c/o alcohol withdrawal and alcohol detox request. History multiple alcohol rehab stays in past. Denies history of DTs, seizures Drinks 30 beers daily In ER ETOH level: 275. Given Ativan 3mg IV in ED banana bag ordered on admission Alcohol withdrawal protocol with gabapentin Folic acid, thiamine, multivitamin daily monitor CBC, CMP, magnesium, phosphorus levels Pt also seen by psychiatry for alcohol abuse disorder and depression -Provided with information on local substance use services including [facility] which he plans to discuss more with his CM through [facility] if he decides to start this -Patient is not an imminent danger to self or others and does not meet criteria for involuntary psychiatric commitment -Continue AWSS as well as thiamine and folic acid -In the outpatient setting could consider starting acamprosate 333mg TID if Cr/renal stable, not available on hospital formulary to start here. -Could consider SSRI initiation in the future for depression if hyponatremia improves (2) Hyponatremia: Plan: Na: 128 on admission Received banana bag. on admission, then IV NS Na level improved to 135 Monitor Na level (3) Depression: Plan: Denies suicidal ideations currently Not on current medication per patient's preference (4) Hypertension: Plan: Continue lisinopril (5) Tobacco use: Plan: Smoking cessation encouraged Nicotine patch DVT Prophylaxis SCDs Full Code as per discussion with pt Follows with [facility] for routine care Admission and Anticipated Discharge Date Admission Date: September 17, 2022 Subjective Pt seen in follow-up of alcohol abuse disorder Currently sitting up in bed, resting in no acute distress Denies any fevers chills chest pain shortness of breath abdominal pain nausea vomiting Patient was seen by psychiatry, no concern for SI at this time Patient is inquiring about discharge, wants to follow-up with [facility] Review of Systems Review of Systems: All systems reviewed & are unremarkable except as noted in Subjective Physical Exam Physical Exam: General: no acute distress, WD/WN Head: normocephalic, atraumatic Eyes: conjunctiva non-injected, anicteric ENT: normal inspection external ears, nose, mucous membranes moist Neck: supple Lungs: clear, no respiratory distress, no wheezing/rhonchi/rales CV: RRR, no murmur, no pretibial edema Abd: normal BS, soft, non-tender Ext: no calf tenderness, moves extremities Neuro: A&O x 3, no focal deficits noted, normal affect Skin: warm, dry Results & Data Results & Data ([facility]) Vital Signs (Past 12 Hours) Vital Signs Temp Pulse Pulse Resp BP BP Pulse Ox 09/20/22 07:38 36.6 C 69 18 148/80 H 95 09/20/22 07:25 77 09/20/22 02:37 36.6 C 82 18 127/80 96 09/19/22 23:01 37.0 C 87 18 106/63 97 09/19/22 23:34 89 O2 Del Method 09/20/22 07:38 Room Air 09/20/22 07:25 09/20/22 02:37 Room Air 09/19/22 23:01 Room Air 09/19/22 23:34 Laboratory Results 09/20/22 09/20/22 Range/Units 08:25 08:25 WBC 3.89 L (4.8-10.8) K/ul RBC 5.39 (4.63-6.08) M/uL Hgb 17.8 (14.0-18.0) g/dl Hct 48.8 (40.1-51.0) % MCV 90.5 (80.0-100.0) fL MCH 33.0 (25.0-34.0) pg MCHC 36.5 H (32.0-36.0) g/dL RDW Std Deviation 38.9 (36.4-46.3) fL RDW Coeff of Eloy 11.8 (11.5-14.5) % Plt Count 132 (130-400) K/uL MPV 10.8 (9.4-12.4) fL Sodium 135 L (136-145) mmol/L Potassium 3.9 (3.5-5.1) mmol/L Chloride 99 (98-107) mmol/L Carbon Dioxide 29 (21-32) mmol/L Anion Gap 7 (3-11) BUN 12 (6-23) mg/dl Creatinine 0.94 (0.6-1.4) mg/dl Est Cr Clr Drug Dosing 92.5 ml/min Est GFR ( Amer) 101.0 ml/min Est GFR (Non-Af Amer) 87.2 ml/min BUN/Creatinine Ratio 12.8 (10-20) Glucose 137 H (70-99(Fasting)) mg/dl Calcium 9.6 (8.5-10.1) mg/dl Phosphorus 3.4 D (2.5-4.9) mg/dl Magnesium 1.8 (1.7-2.4) mg/dl Medications Administered Current Inpatient Medications Acetaminophen (Acetaminophen 325 Mg Tab) 650 mg PO Q4H PRN PRN Reason: Pain or Fever Stop: 10/17/22 20:47 Clonidine HCl (Clonidine Hcl 0.1 Mg Tab) 0.1 mg PO BID [facility] Stop: 10/17/22 20:59 Last Admin: 09/20/22 07:40 Dose: 0.1 mg Folic Acid (Folic Acid 1 Mg Tab) 1 mg PO QAM [facility] Stop: 10/17/22 20:47 Last Admin: 09/20/22 07:39 Dose: 1 mg Gabapentin (Gabapentin 600 Mg Tab) 600 mg PO Q12H [facility] Stop: 09/20/22 12:01 Last Admin: 09/19/22 23:01 Dose: 600 mg Gabapentin (Gabapentin 600 Mg Tab) 600 mg PO Q24H [facility] Stop: 09/21/22 12:01 Lorazepam 1 mg/ Syringe 1 mls @ 2 mls/min IV UD PRN; Protocol PRN Reason: EtOH Withdrawal AWSS Score 6,7 Stop: 10/17/22 20:47 Last Admin: 09/19/22 20:33 Dose: 2 mls/min Lorazepam 2 mg/ Syringe 2 mls @ 2 mls/min IV UD PRN; Protocol PRN Reason: EtOH Withdrawal AWSS Score 8,9 Stop: 10/17/22 20:47 Last Admin: 09/18/22 07:19 Dose: 2 mls/min Lorazepam 3 mg/ Syringe 3 mls @ 2 mls/min IV ONCE PRN; Protocol PRN Reason: EtOH Withdrawal AWSS Score 10 & above Lisinopril (Lisinopril 10 Mg Tab) 10 mg PO DAILY [facility] Stop: 10/18/22 08:59 Last Admin: 09/20/22 07:40 Dose: 10 mg Miscellaneous (Remove Nicoderm Patch) 1 each N/A DAILY@0859 [facility] Stop: 10/18/22 08:58 Last Admin: 09/20/22 07:41 Dose: Not Given Multivitamins (Multivitamin Tab) [facility] Stop: 10/18/22 08:59 Last Admin: 09/20/22 07:40 Dose: 1 tab Nicotine (Nicotine 14 Mg/24 Hr Patch) 14 mg TD [facility] Stop: 10/17/22 20:49 Last Admin: 09/20/22 07:41 Dose: Not Given Ondansetron HCl (Ondansetron Inj 2 Mg/Ml 2 Ml Vial) 4 mg IV Q6H PRN PRN Reason: Nausea Stop: 10/17/22 20:47 Last Admin: 09/18/22 04:29 Dose: 4 mg Pantoprazole Sodium (Pantoprazole 40 Mg Tab) 40 mg PO DAILY [facility] Stop: 10/18/22 08:59 Last Admin: 09/20/22 07:40 Dose: 40 mg Polyethylene Glycol (Polyethylene (Miralax) 17 Gm Pack) 17 gm PO DAILY PRN PRN Reason: Constipation Stop: 10/17/22 20:47 Thiamine HCl (Thiamine Hcl 100 Mg Tab) 100 mg [facility] Stop: 10/17/22 20:47 Last Admin: 09/20/22 07:41 Dose: 100 mg (1) Alcohol withdrawal Complication of substance-induced condition: uncomplicated Qualified Code(s): F10.230 - Alcohol dependence with withdrawal, uncomplicated (2) Depression Depression Type: unspecified Qualified Code(s): F32.A - Depression, unspecified (3) Hypertension Hypertension type: unspecified Qualified Code(s): I10 - Essential (primary) hypertension
[2022-09-20] MEDS ORDERED: LORazepam 0.5 MG TAB PO STA (10:39)
[2022-09-20] MEDS: GABAPENTIN 600 MG TAB PO SCH (11:13)
--- NOTE | 2022-09-20 12:46 | Discharge Summary ---
Date of Service September 20, 2022 Admission HPI Per Admitting Provider Patient is 61 y/o M with PMH HTN, alcohol abuse, depression, essential tremor, tobacco use presented to ER with c/o alcohol withdrawal. Patient with recurrent hospitalization secondary to alcohol withdrawal and detox request. Patient states had stopped drinking alcohol for 3 months however resumed. Is drinking 30 beers daily. Had 15 beers today. Patient wishes to stop drinking. Does not want to consider rehab at this time. Is not taking any medications for depression. Denies any suicidal or homicidal ideations at this time. Denies fever/chills, diaphoresis, N/V/D/C, CARPENTER, dizziness, syncope, vision changes, neck pain, CP, SOB, orthopnea, palpitations, cough, sore throat, choking, otalgia, rhinorrhea, abdominal pain, paresthesias, weakness, extremity weakness, extremity edema, rashes, urinary symptoms. Admission Exam Per Admitting Provider General: no acute distress, appears older than stated age, WDWN Head: normocephalic, atraumatic Eyes: conjunctiva non-injected, anicteric ENT: normal inspection external ears, nose, mucous membranes moist Neck: supple, trachea midline Lungs: clear, no respiratory distress, no wheezing/rhonchi/rales CV: RRR, no murmur, no pretibial edema Abd: normal BS, soft, non-tender Ext: no cyanosis, no calf tenderness Neuro: A&O x 3, no focal deficits noted, normal affect Skin: warm, dry Principal Diagnosis Alcohol use disorder Alcohol withdrawal Hyponatremia Depression Discharge Exam General: no acute distress, WD/WN Head: normocephalic, atraumatic Eyes: conjunctiva non-injected, anicteric ENT: normal inspection external ears, nose, mucous membranes moist Neck: supple Lungs: clear, no respiratory distress, no wheezing/rhonchi/rales CV: RRR, no murmur, no pretibial edema Abd: normal BS, soft, non-tender Ext: no calf tenderness, moves extremities Neuro: A&O x 3, no focal deficits noted, normal affect Skin: warm, dry Discharge Data Allergies Allergy/AdvReac Type Severity Reaction Status Date / Time No Known Allergies Allergy Verified 04/20/22 14:43 Consultations 09/17/22 18:41 ED Decision to Admit Stat 09/17/22 21:48 Consult Psychiatry Routine Hospital Course (1) Alcohol withdrawal: Patient is 61 y/o M with HTN, alcohol abuse, depression, essential tremor, tobacco use presented to ER with c/o alcohol withdrawal and alcohol detox request. History multiple alcohol rehab stays in past. Denies history of DTs, seizures Drinks 30 beers daily In ER ETOH level: 275. Given Ativan 3mg IV in ED banana bag ordered on admission Alcohol withdrawal protocol with gabapentin Folic acid, thiamine, multivitamin daily monitor CBC, CMP, magnesium, phosphorus levels Pt also seen by psychiatry for alcohol abuse disorder and depression -Provided with information on local substance use services including [facility] which he plans to discuss more with his CM through [facility] if he decides to start this -Patient is not an imminent danger to self or others and does not meet criteria for involuntary psychiatric commitment -Continue AWSS as well as thiamine and folic acid -In the outpatient setting could consider starting acamprosate 333mg TID if Cr/renal stable, not available on hospital formulary to start here. -Could consider SSRI initiation in the future for depression if hyponatremia improves (2) Hyponatremia: Na: 128 on admission Received banana bag. on admission, then IV NS Na level improved to 135 Monitor Na level (3) Depression: Denies suicidal ideations currently Not on current medication per patient's preference (4) Hypertension: Continue lisinopril (5) Tobacco use: Smoking cessation encouraged Nicotine patch Follows with [facility] for routine care Total Time Total Time Spent Total Time Spent (In Minutes): 40 Discharge Plan Discharge Items Patient Disposition: Home - Self-Care Reason For Visit: ETOH WITHDRAWAL Discharge Diagnosis: Alcohol use disorder Alcohol withdrawal Hyponatremia Depression Activity: Per Instructions section Non-emergency contact: Primary Care Provider Call non-emergency contact if: you have any medication questions and your symptoms worsen Follow-up/Referrals: [facility],Medicine [Primary Care Provider] - Diet: Regular Addtl Attending Provider Instructions: Follow-up with your primary care doctor, and your case operator within 1 week. It is crucial that you completely abstain from alcohol. Continue taking vitamins, especially thiamine and folic acid. Take gabapentin twice a day as prescribed. DO NOT drink alcohol while on this medication. Pending Studies at Discharge: No Stand-Alone Forms: My [facility], Smoking Cessation Medications and DC Order Prescriptions: New thiamine HCl (vitamin B1) 100 mg Tablet 100 mg PO QAM Qty: 30 0RF folic acid 1 mg Tablet 1 mg PO QAM Qty: 30 0RF gabapentin 300 mg capsule 300 mg PO BID 2 Days Qty: 4 0RF Continued omeprazole 20 mg Tablet,Delayed Release (Dr/Ec) 20 mg PO DAILY clonidine HCl 0.1 mg tablet 0.1 mg PO BID Qty: 0 0RF Label Comments: Not taking vitamin B complex Tablet Extended Release 1 tab PO BID lisinopril 10 mg Tablet 10 mg PO DAILY Discharge Orders: Discharge Order (Routine); Ordered 09/20/22 Ordered By: Mahin Woods Admission Data Admit Date/Time: 09/17/22 19:37 Attending Provider: Mahin Woods Admit Provider: Mahin Woods Primary Care Provider: [facility],Medicine Other Providers: Mahin Woods ; Yary Villagran ; Roxanna Pendleton Other Interventions: Discharge Summary Assessment (RN) Last Done: 09/20/22 11:40
[2022-09-21] MEDS ORDERED: GABAPENTIN 600 MG TAB PO SCH (12:00)
== END 2022-09-20 13:18 | disposition home or self-care (01) | DRG 897 ==
LOC: ED 14:31 → 2W 19:37